=== PATIENT | female | born 1955 | race Caucasian/White ===

== ENCOUNTER → 2017-12-04 09:20 | Outpatient (CLI) | payer MEDICARE, MEDICAID, SELFPAY ==
[2017-12-04 12:29] LABS: Absolute Lymphocyte Count 1.86 X10^3/ul (0.83-4.51); Absolute Neutrophil Count 5.4 X10^3/uL (2.0-7.7); Basophil# 0.06 X10^3/uL; Basophil% 0.7 % (0-1); Differential Indicated SCAN CRITERIA MET; Eosinophil# 0.12 X10^3/uL; Eosinophils% 1.5 % (0-5); Hematocrit 38.7 % (37-47); Hemoglobin 11.6 g/dl (12.0-15.0); Lymphocyte # 1.86 X10^3/ul (4.0); Lymphocyte % 22.5 % (19-41); Mean Corpuscular Hgb 23.3 pg (27.0-32.0); Mean Corpuscular Volume 77.9 fL (81-99); Mean Platelet Vol. 10.6 fl (6.2-12.0); Monocyte# 0.82 X10^3/uL; Monocyte% 9.9 % (0-10); Neutrophil # 5.39 X10^3/uL (2.7-7.7); Neutrophil % 65.2 % (47-70); POSITIVE COUNT NO; POSITIVE DIFFERENTIAL NO; POSITIVE MORPHOLOGY YES; Platelet Count 382 K/mm3 (150-450); RBC Distribution Width CV 21.1 % (11.6-14.6); RBC Distribution Width SD 57.5 fl (35.1-43.9); Red Blood Count 4.97 M/mm3 (4.2-5.4); White Blood Count 8.3 K/mm3 (4.4-11.0)
[2017-12-04 12:40] LABS: ALB/GLOB Ratio 0.6 RATIO (0.9-2.4); AST(SGOT) 16 U/L (15-37); Alanine Aminotransfer ALT/SGPT 21 U/L (13-56); Albumin, Serum 2.9 g/dL (3.2-5.0); Alkaline Phosphatase 83 U/L (45-117); Anion Gap 8 (5-15); BUN 10 mg/dL (7-18); BUN/Creat Ratio 11.2 RATIO (10-20); Calcium,Total 8.3 mg/dL (8.5-10.1); Chloride 108 mmol/L (98-107); Creatinine, Serum 0.89 mg/dL (0.55-1.02); EST Glomerular Filtration Rate 68 mL/min (>60); Est Glom Filt Rate - Afr Amer 82 mL/min (>60); Globulin 4.6 g/dL (2.2-4.2); Glucose 99 mg/dL (74-106); Potassium 3.5 mmol/L (3.5-5.1); Protein, Total 7.5 g/dL (6.4-8.2); Sodium Level 141 mmol/L (136-145)
== END ==
PROVIDERS: Family Provider Family Medicine; PCP Family Medicine; Visit Provider Internal Medicine Rheumatology
DX: M06.89 Other specified rheumatoid arthritis, multiple sites (principal); M17.0 Bilateral primary osteoarthritis of knee; M16.0 Bilateral primary osteoarthritis of hip; K21.9 Gastro-esophageal reflux disease without esophagitis; M47.897 Other spondylosis, lumbosacral region; J45.909 Unspecified asthma, uncomplicated; F41.9 Anxiety disorder, unspecified; E89.0 Postprocedural hypothyroidism; Z79.899 Other long term (current) drug therapy
CPT/HCPCS: 36415; 80053; 85025

== ENCOUNTER → 2018-06-06 11:42 | Outpatient (CLI) | payer MEDICARE, MEDICAID, SELFPAY ==
[2018-06-06 14:20] LABS: Creatinine, Serum 1.02 mg/dL (0.55-1.02); EST Glomerular Filtration Rate 58 mL/min (>60); Est Glom Filt Rate - Afr Amer 70 mL/min (>60)
== END ==
PROVIDERS: Family Provider Family Medicine; PCP Family Medicine; Visit Provider Urology
DX: N39.0 Urinary tract infection, site not specified (principal); R31.29 Other microscopic hematuria
CPT/HCPCS: 36415; 82565

== ENCOUNTER → 2018-06-19 07:58 | Outpatient (CLI) | payer MEDICARE, MEDICAID, SELFPAY | PROVIDERS: Family Provider Family Medicine; PCP Family Medicine; Visit Provider Urology | DX: N39.0 Urinary tract infection, site not specified (principal); R31.9 Hematuria, unspecified | CPT/HCPCS: 74178; Q9967 ==

== ENCOUNTER 2024-07-28 15:55 | Emergency (ER) | payer MEDICARE, MEDICAID, SELFPAY ==
[2024-07-28 15:55] VITALS: BP 89/46; PULSE 110; RESP 22; TEMP 35.9; O2SAT 92
[2024-07-28 15:59] VITALS: BMI 29.2
--- NOTE | 2024-07-28 16:08 | EKG12_ITS ---
Test Reason : ABN LABS Blood Pressure : / mmHG Vent. Rate : 104 BPM Atrial Rate : 104 BPM P-R Int : 136 ms QRS Dur : 076 ms QT Int : 336 ms P-R-T Axes : 027 003 076 degrees QTc Int : 441 ms Sinus tachycardia with Premature atrial complexes Otherwise normal ECG Confirmed by DONNIE LOVE, CLAUDIA ([id number]), commercial production editor RUBIA AHN ([id number]) on 07/30/2024 6:32:33 AM Referred By: Confirmed By:CLAUDIA FIELDS MD
--- NOTE | 2024-07-28 16:09 | CT_ITS ---
We are attempting to reach an attending provider to discuss findings. An addendum with communication details will be sent when the communication is complete. STUDY: CT Abdomen And Pelvis W/ Contrast Injection 07/28/2024 6:23 PM REASON FOR EXAM: Female, 69 years old. Abdominal pain Nausea and vomiting, pain Individualized dose optimization techniques were used for this CT. COMPARISON: 06.19.19 TECHNIQUE: CT Abdomen And Pelvis W/ Contrast Injection IV 100mL Isovue-[id number] FINDINGS: There are atherosclerotic calcifications of visualized coronary arteries. The visualized portions of the heart are within normal limits. Normal liver. Normal gallbladder and extrahepatic biliary system. Normal spleen. Normal pancreas. Normal bilateral adrenal glands. Multicystic right kidney. Multicystic left kidney. Gastric perforation. There is an adjacent abscess measuring 29 x 30 mm. Normal small intestine. Stool throughout the colon. The appendix is visualized and appears normal. There are calcifications of the abdominal aorta. This is consistent for atherosclerotic disease. There is NO abdominal aortic aneurysm. Vascular workup can be obtained based on clinical correlation. There is an IVC filter in place. Recommend correlation with IVC filter placement the for follow-up. Subcentimeter mesenteric lymph nodes. Normal urinary bladder. There is absence of the uterus consistent with a prior hysterectomy. Normal abdominal wall. There are diffuse degenerative changes of the visualized lumbar spine. Multiple stable compression deformities in the lumbar spine. Total right hip arthroplasty. CT/Abdomen/Pelvis W IV Cont ONLY IMPRESSION: (NOT LISTED IN ORDER OF SIGNIFICANCE) Acute gastric perforation with regional abscess. Polycystic kidney disease. Other findings as above. Electronically Signed: Yazan Smith MD at 18:29 EDT ,
--- NOTE | 2024-07-28 16:09 | ED.VIS.GI ---
HPI HPI - GI History of Present Illness Chief Complaint: Abd Pain Narrative Narrative: 69-year-old female past medical history of rheumatoid arthritis presents with 2 months of intermittent nausea and vomiting. She states she has not had a bowel movement in a month. She relates history that she saw her primary care provider, and had an x-ray of her abdomen as well as a CT by her primary care provider and was told that there might be something wrong with her pancreas. Over the last few days, she now has more consistent nausea and vomiting. Whenever she tries to drink water, she vomits it back up. States she is somewhat lightheaded if she stands up too quickly. Past abdominal surgical history includes hysterectomy. She states she is post to see gastroenterology in the next coming weeks. She presents because the nausea and vomiting has gotten worse. She is having bilateral lower quadrant abdominal pain now as well. No blood in her emesis. PFSH PFSH Home Medications ?Medication ?Instructions ?Recorded ?Last Taken ?Type Advair 500/50 Mcg Diskus 1 puff inhalation TID 07/29/13 Unknown History Emblex 7.5 mg PO QHS 07/29/13 Unknown History albuterol sulfate 90 mcg/actuation 1 puff inhalation DAILY 07/29/13 Unknown History aerosol inhaler (Ventolin HFA) enoxaparin 100 mg/mL subcutaneous 100 mg subcut Q12@0600,1800 07/29/13 Unknown History syringe fentanyl 25 mcg/hr transdermal 25 mcg TRANSDERM. Q72H 07/29/13 Unknown History patch fluticasone 500 mcg-salmeterol 50 1 puff inhalation BID 07/29/13 Unknown History mcg/dose blistr powdr for inhalation (Advair Diskus) folic acid 1 mg tablet 1 mg PO DAILY@0800 07/29/13 Unknown History hydroxychloroquine 200 mg tablet 200 mg PO BIDCM 07/29/13 Unknown History methocarbamol 750 mg tablet 750 mg PO PRN PRN Anxiety 07/29/13 Unknown History (Robaxin-750) methotrexate sodium 2.5 mg tablet 10 mg PO Q7D 07/29/13 Unknown History montelukast 10 mg tablet 10 mg PO DAILY 07/29/13 Unknown History multivitamin with folic acid 400 1 tab PO DAILY 07/29/13 Unknown History mcg tablet (Thera) sertraline 100 mg tablet 150 mg PO DAILY 07/29/13 Unknown History tiotropium bromide 18 mcg capsule 1 puff inhalation DAILY 07/29/13 Unknown History with inhalation device (Spiriva with HandiHaler) warfarin 2.5 mg tablet (Jantoven) 2.5 mg PO QODAY 07/29/13 Unknown History warfarin 5 mg tablet (Jantoven) 5 mg PO QODAY 07/29/13 Unknown History zolpidem 10 mg tablet (Ambien) 10 mg PO QHS PRN 07/29/13 Unknown History diphenoxylate-atropine 2.5 1 tab PO DAILY 08/23/13 Unknown History mg-0.025 mg tablet oxycodone-acetaminophen 10 mg-325 1 tab PO Q6H PRN PRN Pain #20 tabs 09/10/13 Unknown Rx mg tablet (Percocet) gabapentin 800 mg tablet mg PO 07/28/24 Unknown History isosorbide mononitrate 30 mg 30 mg PO DAILY 07/28/24 Unknown History tablet,extended release 24 hr levothyroxine 175 mcg tablet mcg PO 07/28/24 Unknown History omeprazole 40 mg capsule,delayed 40 mg PO DAILY 07/28/24 Unknown History release oxycodone 10 mg tablet 10 mg PO 07/28/24 Unknown History potassium chloride 20 mEq 20 meq PO DAILY 07/28/24 Unknown History tablet,extended release(part/cryst) (Klor-Con M) prednisone 10 mg tablet mg PO 07/28/24 Unknown History Allergy/AdvReac Type Severity Reaction Status Date / Time Sulfa (Sulfonamide Allergy Hives AND Verified 07/28/24 16:16 Antibiotics) RESP DISTRESS nitrofurantoin AdvReac DECREASED Verified 07/28/24 16:16 (Nitrofurantoin) HEART RATE Social History Smoking Status: Current every day smoker tobacco type: cigarettes ROS ROS ED ROS Narrative Constitutional: No fever, no chills. HEENT: No sore throat. No neck pain. No loss of vision. No rhinorrhea. Cardiovascular: No chest pain. No palpitations. No pedal edema. Respiratory: No cough, no shortness of breath. Abdominal: Bilateral lower quadrant abdominal pain. 2 months of intermittent nausea and vomiting, now more consistent over the last few days with to many episodes to count over the last 24 hours, no hematemesis. States has not had a bowel movement in a month. Genitourinary: No dysuria. No hematuria. Musculoskeletal: No myalgias. No arthralgias. Neurologic: No headaches. No dizziness. Positive lightheadedness when standing up too quickly. Skin: No rash. No change in color. Psychiatric: No depression. No anxiety. EXAM Physical Exam Narrative Exam Narrative: Afebrile. Vital signs noted. Nontoxic-appearing. HEENT examination shows head to be normocephalic and atraumatic. Cardiovascular examination reveals a regular tachycardia. Mild tachypnea. Lungs clear to auscultation bilaterally. Abdomen soft with positive bowel sounds. Diffuse tenderness to palpation but especially in bilateral lower quadrants. Neurological examination is nonfocal and nonlateralizing. Const Vital Signs: 07/28/24 15:55 07/28/24 18:00 Temperature 96.6 F L Temperature Source Temporal Pulse Rate 110 H 91 Respiratory Rate 22 H 14 Blood Pressure 89/46 L 89/50 L Blood Pressure Mean 60 63 Pulse Ox 92 98 Oxygen Delivery Method Room Air Room Air MDM MDM MDM Narrative Medical decision making narrative: Differential diagnosis includes but not limited to partial small bowel obstruction versus diverticulitis versus ischemic bowel versus pancreatitis. Upon arrival, she is hypotensive and tachycardic. This may be secondary to dehydration versus intravascular volume depletion. Comprehensive workup was pursued. She was initially bolused normal saline and admitted her started ondansetron. I do feel CT imaging is indicated although she states she had CT imaging 2 months ago, she is having more consistent nausea and vomiting currently. I will also obtain a lactic acid to help rule out ischemic bowel, but this may be elevated to dehydration as well. I reviewed her laboratory work and she has elevated white count of 16.0, hemoglobin stable at 11.1, platelet count elevated at 759 which may be more of an acute phase reactant. Review of her CMP shows normal sodium of 136, potassium 3.6, chloride 102. BUN normal at 10 with creatinine normal at 0.75. Lactic acid is normal at 1.4. Lipase is elevated at 154. ALT is low at 9 with alk phos elevated at 120. I received a call from the radiologist regarding the CT of the abdomen and pelvis. It appears that she has a gastric perforation with abscess development. I discussed patient with Dr. Kwan with general surgery who states that the abscess is behind the body of the pancreas and possibly over the splenic artery, and that the patient will most likely require IR intervention or possible ICU admission after surgery. Patient was administered Pepcid as she had used a oral swab, and began having pain. She will be made strictly n.p.o. I discussed the patient with the transfer line who states that the surgeon Dr. Llamas requested an ED to ED transfer. I did discuss patient with Dr. Elisabeth Bates who has also accepted her in transfer. Although she has a soft blood pressure in the 90s systolic, she is no longer tachycardic and her lactic acid is normal. She will be started on an antifungal in the form of Diflucan, and started on Zosyn for intra-abdominal sepsis. Disposition is transferred. Patient is in guarded condition. History & Record Review Discussion w/independent historian: Patient and Family Lab Data Attestation: I reviewed the patient's lab results. Labs: Laboratory Results - last 24 hr 07/28/24 16:17 WBC 16.0 H RBC 4.99 Hgb 11.1 L Hct 39.0 MCV 78.2 L MCH 22.2 L MCHC 28.5 L RDW Std Deviation 60.2 H RDW Coeff of Demetrice 22.0 H Plt Count 759 H* MPV 8.6 Immature Gran % (Auto) 1.100 H Neut % (Auto) 78.1 H Lymph % (Auto) 11.4 L Clinch % (Auto) 7.7 Eos % (Auto) 1.3 Baso % (Auto) 0.4 Absolute Neuts (auto) 12.5 H Absolute Lymphs (auto) 1.83 Nucleated RBC % 0.1 Differential Comment SCANNED Diff Path Review May foll Platelet Estimate MKD INC Polychromasia 1+ Anisocytosis 2+ Sodium 136 Potassium 3.6 Chloride 102 Carbon Dioxide 26.0 Anion Gap 8 BUN 10 Creatinine 0.75 Estim Creat Clear Calc 69.28 Est GFR (MDRD) Af Amer 99 Est GFR (MDRD) Non-Af 82 BUN/Creatinine Ratio 13.4 Glucose 97 Lactic Acid 1.4 Calcium 8.7 Total Bilirubin 0.80 AST 17 ALT 9 L Alkaline Phosphatase 120 H Total Protein 7.4 Albumin 2.1 L Globulin 5.3 H Albumin/Globulin Ratio 0.4 L Lipase 154 H Radiography Diagnostic Testing: Clinical Impression(s) from Imaging Studies Abdomen/Pelvis CT 07/28/24 16:09 IMPRESSION: (NOT LISTED IN ORDER OF SIGNIFICANCE) Acute gastric perforation with regional abscess. Polycystic kidney disease. Other findings as above. Electronically Signed: Yazan Smith MD at 18:29 EDT , ADDENDUM: 07/28/24 1842 IMPRESSION: (NOT LISTED IN ORDER OF SIGNIFICANCE) Acute gastric perforation with regional abscess. Polycystic kidney disease. Other findings as above. N.B. : The above Results were Read Back by Yazan Smith MD to Toribio Salvador MD, and understanding confirmed on 07/28/2024 18:35:12 (ET). Electronically Signed: Yazan Smith MD at 18:29 EDT , Management Discussion w/another healthcare provider: Electric Bath Attendant (Dr. Kwan, general surgery. [facility] Transfer line, [facility] ED physician) Critical Care Time Critical Care Time: Yes Critical care time (excluding procedures): 30-74 minutes (32 minutes), Discussing w/Patient &/or Family/Quality Assurance Manager, Discussing w/Consultants, Arranging Admission or Transfer and Performing Direct Patient Care at Bedside Discharge Plan Triage Chief Complaint: Abd Pain ED Provider: Toribio Salvador Dx/Rx/DC Orders Clinical Impression: Gastric perforation, Intra-abdominal abscess, Hypotension, Nausea and vomiting Prescriptions: No Action diphenoxylate-atropine 1 TABLET tablet 1 tab PO DAILY Patient Comments: DIARRHEA Advair 500/50 Mcg Diskus 1 puff inhalation TID Patient Comments: LUNGS/COPD fluticasone propion-salmeterol [Advair Diskus] 1 PUFF inhaler 1 puff inhalation BID Patient Comments: LUNGS/COPD folic acid 1 MG tablet 1 mg PO DAILY@0800 Patient Comments: SUPPLEMENT zolpidem [Ambien] 10 MG tablet 10 mg PO QHS PRN Patient Comments: SLEEP sertraline 100 MG tablet 150 mg PO DAILY Patient Comments: DEPRESSION warfarin [Jantoven] 2.5 MG tablet 2.5 mg PO QODAY Patient Comments: BLOOD THINNER methocarbamol [Robaxin-750] 750 MG tablet 750 mg PO PRN PRN (Reason: Anxiety) Patient Comments: musculoskeletal pain methotrexate sodium 2.5 MG tablet 10 mg PO Q7D warfarin [Jantoven] 5 MG tablet 5 mg PO QODAY Patient Comments: BLOOD THINNER montelukast 10 MG tablet 10 mg PO DAILY Patient Comments: LUNGS/COPD hydroxychloroquine 200 MG tablet 200 mg PO BIDCM Patient Comments: rheumatoid arthritis fentanyl 25 MCG patch 25 mcg TRANSDERM. Q72H Patient Comments: PAIN albuterol sulfate [Ventolin HFA] 1 INHALER inhaler 1 puff inhalation DAILY Patient Comments: LUNGS/COPD enoxaparin 100 MG syringe 100 mg subcut Q12@0600,1800 Patient Comments: BLOOD THINNER tiotropium bromide [Spiriva with HandiHaler] 1 PUFF inhaler 1 puff inhalation DAILY Patient Comments: LUNGS/COPD multivitamin with folic acid [Thera] 1 TABLET tablet 1 tab PO DAILY Patient Comments: VITAMIN Emblex 7.5 mg PO QHS oxycodone-acetaminophen [Percocet] 1 EACH tablet 1 tab PO Q6H PRN PRN (Reason: Pain) Qty: 20 0RF Patient Comments: pain levothyroxine 175 mcg tablet PO prednisone 10 mg tablet PO isosorbide mononitrate 30 mg tablet extended release 24 hr 30 mg PO DAILY omeprazole 40 mg capsule,delayed release(DR/EC) 40 mg PO DAILY potassium chloride [Klor-Con M20] 20 mEq tablet,ER particles/crystals 20 meq PO DAILY gabapentin 800 mg tablet PO oxycodone 10 mg tablet 10 mg PO Primary Care Provider: Galindo Sun Referrals: Galindo Sun MD [Primary Care Provider] - Print Language: [place] Disposition Disposition: Acute Care Hospital Discharge Location: [facility]
[2024-07-28] MEDS: Ondansetron 4 MG/2 ML Vial IV (16:24)
[2024-07-28] MEDS: 0.9% Normal Saline (1000mL) 1,000 ML 999 ML IV ×2 (16:24→18:57)
[2024-07-28 16:43] LABS: Absolute Lymphocyte Count 1.83 X10^3/uL (0.83-4.51); Absolute Neutrophil Count 12.5 X10^3/uL (2.0-7.7); Basophil# 0.07 X10^3/uL; Basophil% 0.4 % (0-1); Eosinophil# 0.21 X10^3/uL; Eosinophils% 1.3 % (0-5); Hemoglobin 11.1 g/dL (12.0-15.0); Lymphocyte # 1.83 X10^3/ul (0.83-4.51); Lymphocyte % 11.4 % (19-41); Mean Corp Hgb Conc 28.5 g/dL (32-36); Mean Corpuscular Hgb 22.2 pg (27.0-32.0); Mean Corpuscular Volume 78.2 fL (81-99); Mean Platelet Vol. 8.6 fl (6.2-12.0); Monocyte# 1.23 X10^3/uL; Monocyte% 7.7 % (0-10); NRBC Flagged by Analyzer 0.1 % (0-5); Neutrophil # 12.51 X10^3/uL (2.7-7.7); Neutrophil % 78.1 % (47-70); POSITIVE COUNT YES; POSITIVE MORPHOLOGY YES; RBC Distribution Width SD 60.2 fl (35.1-43.9); Red Blood Count 4.99 M/mm3 (4.2-5.4)
[2024-07-28 16:51] LABS: Differential Indicated SCAN CRITERIA MET; Platelet Count 759 K/mm3 (150-450)
[2024-07-28 16:59] LABS: Lactic Acid 1.4 mmol/L (0.4-1.9)
[2024-07-28 17:01] LABS: ALB/GLOB Ratio 0.4 RATIO (0.9-2.4); AST(SGOT) 17 U/L (15-37); Alanine Aminotransfer ALT/SGPT 9 U/L (13-56); Albumin, Serum 2.1 g/dL (3.2-5.0); Alkaline Phosphatase 120 U/L (45-117); Anion Gap 8 (5-15); BUN 10 mg/dL (7-18); BUN/Creat Ratio 13.4 RATIO (10-20); Calcium,Total 8.7 mg/dL (8.5-10.1); Chloride 102 mmol/L (98-107); Creatinine, Serum 0.75 mg/dL (0.55-1.02); EST Glomerular Filtration Rate 82 mL/min (>60); Est Glom Filt Rate - Afr Amer 99 mL/min (>60); Estimated Creatinine Clearance 69.28 ml/min; Globulin 5.3 g/dL (2.2-4.2); Glucose 97 mg/dL (74-106); Lipase 154 U/L (13-75); Potassium 3.6 mmol/L (3.5-5.1); Protein, Total 7.4 g/dL (6.4-8.2); Sodium Level 136 mmol/L (136-145)
[2024-07-28 17:39] LABS: Anisocytosis 2+; Differential Comment SCANNED
[2024-07-28 17:40] LABS: Polychromasia 1+
[2024-07-28 17:43] LABS: Platelet Estimate MKD INC (ADEQ)
[2024-07-28 18:00] VITALS: BP 89/50; PULSE 91; RESP 14; O2SAT 98
[2024-07-28] MEDS: Famotidine 200 MG/20 ML MDV 20 MG in 0.9% Normal Saline (Pres. free 8 ML 300 MG IV (18:30)
[2024-07-28] MEDS: Piperacil/Tazobactam 4.5 GM in 0.9% Normal Saline (100mL MB+) 100 ML IV (19:15)
[2024-07-28 20:00] VITALS: BP 97/58; PULSE 93; RESP 17
[2024-07-28] MEDS: Fluconazole IVPB 400 MG/200 ML BAG 100 MG IV (20:19)
[2024-07-28 20:54] LABS: Red Blood Cells-Urine 0 SEEN /hpf (0-5)
[2024-07-28 21:04] LABS: Color, Urine Yellow (Yellow); Glucose, Dipstick Normal (Normal); Ketone-Dipstick 5 mg/dl (Negative); Leukocyte Esterase-Dipstick 100 /ul (Negative); Nitrite-Dipstick Positive (Negative); Occult Blood-Urine 10 /ul (Negative); Protein-Dipstick 30 mg/dl (Negative); Urine Bilirubin Dipstick Negative (Negative); Urine Clarity Sl. Cloudy (Clear); Urine Urobilinogen 1 mg/dl (Normal); Urine pH 6.5 (5.0 - 8.0)
[2024-07-28 21:21] VITALS: BP 102/56; PULSE 75; RESP 20; TEMP 36; O2SAT 98
[2024-07-28 21:22] LABS: Bacteria 4+ /hpf (None Seen); Mucous, Urine 1+ /hpf (<or=2+); Squamous Epithelial Cells - UA 5-10 SEEN /hpf (5-10); White Blood Cells 50-100 SEEN /hpf (0-5)
[2024-07-29 13:00] LABS: Pathologist Review Reviewed
== END 2024-07-28 21:26 | disposition short-term general hospital (02) ==
PROVIDERS: Emergency Provider Emergency Medicine; PCP Family Medicine; Visit Provider Emergency Medicine
DX: K65.1 Peritoneal abscess (principal); K63.1 Perforation of intestine (nontraumatic); F17.210 Nicotine dependence, cigarettes, uncomplicated; I95.9 Hypotension, unspecified; Z79.890 Hormone replacement therapy; Z79.899 Other long term (current) drug therapy; R11.2 Nausea with vomiting, unspecified
CPT/HCPCS: 74177; 80053; 81001; 83605; 83690; 85025; 93005; 96361; 96365; 96366; 96367; 96375; 99284; J7030; Q9967; A4216; J2405; J3490

== ENCOUNTER → 2025-03-04 | Outpatient (CLI) | payer MEDICARE, MEDICAID, SELFPAY ==
[2025-03-04 12:26] LABS: Amylase 41 U/L (28-100); Lipase 35 U/L (13-75)
[2025-03-06 17:08] LABS: Gastrin, Serum 170 pg/mL (0-115)
== END | disposition home or self-care (01) ==
LOC: LAB 10:44
PROVIDERS: PCP Family Medicine
DX: R11.0 Nausea (principal); K86.89 Other specified diseases of pancreas
CPT/HCPCS: 36415; 82150; 82941; 83690

== ENCOUNTER → 2025-03-20 | Outpatient (CLI) | payer MEDICARE, MEDICAID, SELFPAY ==
--- NOTE | 2025-03-20 12:52 | NM_ITS ---
PROCEDURE: GASTRIC EMPTYING STUDY 03/20/2025 REASON FOR EXAM: FREQUENT NAUSEA COMPARISON: None TECHNIQUE: The patient ingested a standard meal of cooked egg whites mixed with , oatmeal, toasted white bread, jelly, and water. There was no vomiting postprandially. Anterior and posterior planar images of the upper abdomen were obtained for 1 minute immediately following the meal at 1h, 2h and 4h if more than 10% of the activity persisted within the stomach. Regions of interest were drawn, and a geometric mean was used to calculate a [id number]. RADIOPHARMACEUTICAL: Sulfur colloid DOSE 1.2mCi FINDINGS: Percent activity remaining in stomach: 1 hour 62% % (normal 37-90%) NM/Gastric Emptying Study IMPRESSION: Normal gastric emptying examination. Reading Location: [place] [id number]
== END | disposition home or self-care (01) ==
LOC: NM 12:50
PROVIDERS: PCP Family Medicine
DX: K86.89 Other specified diseases of pancreas (principal); R11.0 Nausea
CPT/HCPCS: 78264; A9541

== ENCOUNTER → 2025-04-04 | Outpatient (CLI) | payer MEDICARE, MEDICAID, SELFPAY ==
--- NOTE | 2025-04-04 08:50 | ECHOCS_ITS ---
Reason For Study Reason For Study: FATIGUE Procedure This was a 2D Doppler, Color Flow transthoracic echocardiogram. The study was technically difficult. Due to smoking history and body habitus. Contrast injection was performed. Exam performed in department. Left Ventricle Normal LV size. The estimated ejection fraction is 65 %. No evidence for diastolic dysfunction. No regional wall motion abnormalities noted. Right Ventricle Normal RV size. Normal systolic function. Atria The left and right atria are normal. No doppler evidence for ASD. Mitral Valve There is no mitral valve stenosis. No mitral valve insufficiency. Tricuspid Valve There is no tricuspid stenosis. Unable to estimate RV systolic pressure due to inadequate jet, pulmonary artery pressure probably normal. Aortic Valve Aortic sclerosis, no stenosis. No aortic valve insufficiency. Pulmonic Valve There is no pulmonic valvular stenosis. No pulmonic valve insufficiency. Great Vessels Normal sized aortic root. Pericardium/Pleural No pericardial effusion. Medication 22 gauge I.V. with prn adaptor inserted into right arm. Diluted definity 3.0ml given slow IV push to enhance endocardial definition. MMode/2D Measurements & Calculations LVIDd: 4.5 cm IVSd: 1.3 cm Ao root diam: 3.3 cm LVIDs: 2.9 cm LVPWd: 1.2 cm FS: 36.7 % LAV(MOD-bp): 53.6 ml LVAd ap4: 30.2 cm2 LVAd ap2: 26.9 cm2 LAV(MOD-bp) Indexed: 27.6 ml/m2 LVLd ap4: 7.7 cm LVLd ap2: 7.9 cm LAV(MOD-sp2): 56.1 ml EDV(MOD-sp4): 100.2 ml EDV(MOD-sp2): 76.0 ml LAV(MOD-sp4): 51.2 ml EDV(sp4-el): 100.7 ml EDV(sp2-el): 77.4 ml LVAs ap4: 14.7 cm2 LVAs ap2: 15.6 cm2 LVLs ap4: 6.8 cm LVLs ap2: 7.2 cm ESV(MOD-sp4): 27.1 ml ESV(MOD-sp2): 28.4 ml ESV(sp4-el): 27.0 ml ESV(sp2-el): 28.8 ml EF(MOD-sp4): 73.0 % EF(MOD-sp2): 62.5 % EF(sp4-el): 73.1 % SV(MOD-sp4): 73.1 ml SV(MOD-sp2): 47.5 ml SV(sp4-el): 73.7 ml SI(MOD-sp4): 37.6 ml/m2 SI(MOD-sp2): 24.4 ml/m2 LA A4 area: 18.6 cm2 LA dimension(2D): 4.6 cm RA A4 area: 17.3 cm2 TAPSE: 2.5 cm Time Measurements MV dec time: 0.17 sec Doppler Measurements & Calculations MV E max andreas: 62.6 cm/sec Lat Peak E' Andreas: 6.3 cm/sec Med Peak E' Andreas: 8.5 cm/sec MV A max andreas: 74.6 cm/sec E/E' lat: 9.9 E/E' med: 7.4 MV E/A: 0.84 MV V2 max: 75.0 cm/sec MV P1/2t max andreas: 63.6 cm/sec Ao V2 max: 131.7 cm/sec MV max P.2 mmHg MV P1/2t: 62.6 msec Ao max P.9 mmHg MV V2 mean: 46.1 cm/sec MV dec slope: 297.7 cm/sec2 Ao V2 mean: 79.3 cm/sec MV mean P.95 mmHg MVA(P1/2t): 3.5 cm2 Ao mean P.9 mmHg MV V2 VTI: 14.7 cm Ao V2 VTI: 18.3 cm AV (velocity ratio): 0.78 LV V1 max: 98.6 cm/sec PA V2 max: 80.4 cm/sec TR max andreas: 208.5 cm/sec LV V1 max P.9 mmHg PA V2 mean: 53.1 cm/sec TR max P.4 mmHg LV V1 mean P.6 mmHg PA V2 VTI: 12.9 cm LV V1 mean: 59.1 cm/sec LV V1 VTI: 14.3 cm ECHO/Echo Complete W/ Contrast Interpretation Summary The estimated ejection fraction is 65 %. No evidence for diastolic dysfunction. Ordering Physician: Galindo Sun Referring Physician: Galindo Sun Performed By: Estefania Griffiths, JENNIFER, RVT
== END | disposition home or self-care (01) ==
LOC: CVS 08:46
PROVIDERS: PCP Family Medicine; Referring Provider Family Medicine; Visit Provider Family Medicine
DX: R06.09 Other forms of dyspnea (principal); R53.83 Other fatigue
CPT/HCPCS: 93306; Q9957; A4216; C8929

== ENCOUNTER 2025-05-13 10:24 | Day surgery (SDC) | payer MEDICARE, MEDICAID, SELFPAY ==
--- NOTE | 2025-05-12 13:25 | PAT.ANESEVAL ---
Pre-Assessment Diagnosis/Proposed Procedure Planned Operative Procedure(s): EGD Anesthesia History Anesthesia History - sequins stringer: Anesthesia History - sequins stringer Hx Hospitalization No 05/12/25 08:53 Any Problems With Anesthesia No 05/12/25 08:53 Cholinesterase deficiency No 05/12/25 08:53 You/Your Family Experience No 05/12/25 08:53 fever (hyperthermia) with Relationship Recent Exposure to Contagious No 09/09/13 10:22 Disease Does patient have nerve No 05/12/25 08:53 stimulator Patient instructed to have device shut off --Does patient have Pacemaker or ICD? When Was Last Pacemaker Check QUESTION #4 FULL TEXT: You/Your Family Experience fever (hyperthermia) with Anesthesia Last Oral Intake Last Oral intake: Last Oral Intake NPO since Meds taken in AM with sips of water? Meds patient instructed to take am of surgery PONV PONV - sequins stringer: PONV - sequins stringer Female Yes 05/12/25 08:53 HX of Motion Sickness No 05/12/25 08:53 HX of N/V After Surgery No 05/12/25 08:53 Non-Smoker No 05/12/25 08:53 Duration of Surgery greater No 05/12/25 08:53 than 60 minutes Number of Risk Factors 1 05/12/25 08:53 PONV Score Low Risk 05/12/25 08:53 Height & Weight Height & Weight: Anesthesia: Height & Weight Height 5 ft 5 in 07/28/24 15:55 Respiratory Assessment Respiratory Assessment - sequins stringer: Respiratory Tract Infection Hx - sequins stringer Hx Respiratory Tract Infection No 05/12/25 08:53 STOP Sleep Apnea STOP Sleep Apnea - sequins stringer: STOP Sleep Apnea - sequins stringer Hx Hypertension No 05/12/25 08:53 Hx Sleep Apnea No 05/12/25 08:53 CPAP No 09/09/13 12:36 BIPAP No 09/09/13 10:29 Do you snore loudly (louder Yes 05/12/25 08:53 than talking or can be heard Do you often feel tired/ Yes 05/12/25 08:53 fatigued/ sleepy during daytime? Has anyone observed you stop Yes 05/12/25 08:53 breathing during sleep? STOP Results Positive 05/12/25 08:53 QUESTION #5 FULL TEXT : Do you snore loudly (louder than talking or can be heard through closed doors)? 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 Specify any problems Hx of Preganancy in last 3 No 05/12/25 08:53 Months Nurse Filling Out Transfusion [facility] 05/12/25 08:53 & Questions: Date: 05/12/25 05/12/25 08:53 Time: 09:06 05/12/25 08:53 Patient unable to answer at this time (ie. confused, unrespo /Reproduction History /Reproductive History - sequins stringer: /Reproductive Hx- sequins stringer Hx Now No 05/12/25 08:53 Gestational Age (in weeks): EDC: Hx Hx Para Hx Section SAB No 05/12/25 08:53 [facility] Medical History (Updated 05/12/25 @ 10:40 by Luly Fierro) History of stress test Wears hearing aid Wears dentures Wears glasses Thyroid disease Walker as ambulation aid Ambulates with cane Rheumatoid arthritis Low iron DVT (deep venous thrombosis) Restless legs Gastric reflux Smoker History of echocardiogram Cardiology follow-up encounter Hypertension Rheumatoid arthritis in remission Pancreatic pseudocyst Severe protein-calorie malnutrition Perforated gastric ulcer Chronic kidney disease, stage 3 COPD (chronic obstructive pulmonary disease) Anxiety Epistaxis Chronic anticoagulation Altered mental status History of DVT (deep vein thrombosis) Asthma Fibromyalgia Anemia Osteoporosis GERD without esophagitis Insomnia Dysphagia Osteoarthritis Home Medications ?Medication ?Instructions ?Recorded ?Last Taken ?Type albuterol sulfate 90 mcg/actuation 1 puff inhalation DAILY 07/29/13 Unknown History aerosol inhaler (Ventolin HFA) fluticasone 500 mcg-salmeterol 50 1 puff inhalation BID 07/29/13 Unknown History mcg/dose blistr powdr for inhalation (Advair Diskus) folic acid 1 mg tablet 1 mg PO DAILY@0800 07/29/13 Unknown History montelukast 10 mg tablet 10 mg PO DAILY 07/29/13 Unknown History tiotropium bromide 18 mcg capsule 1 puff inhalation DAILY 07/29/13 Unknown History with inhalation device (Spiriva with HandiHaler) warfarin 2.5 mg tablet (Jantoven) 2.5 mg PO QODAY 07/29/13 05/10/25 History warfarin 5 mg tablet (Jantoven) 5 mg PO QODAY 07/29/13 05/09/25 History gabapentin 800 mg tablet 800 mg PO TID 07/28/24 Unknown History isosorbide mononitrate 30 mg 30 mg PO DAILY 07/28/24 Unknown History tablet,extended release 24 hr levothyroxine 175 mcg tablet 175 mcg PO DAILY 07/28/24 Unknown History oxycodone 10 mg tablet 10 mg PO Q4H PRN pain 07/28/24 Unknown History potassium chloride 20 mEq 20 meq PO DAILY 07/28/24 Unknown History tablet,extended release(part/cryst) (Klor-Con M) alprazolam 0.25 mg tablet 0.25 mg PO TID PRN anxiety 08/08/24 Unknown History melatonin 5 mg tablet 5 mg PO HS PRN sleep 08/08/24 Unknown History methocarbamol 750 mg tablet 500 mg PO Q6H PRN Anxiety 08/08/24 Unknown History (Robaxin-750) omeprazole 40 mg capsule,delayed 40 mg PO QDAY 08/08/24 Unknown History release ondansetron 4 mg disintegrating 4 mg PO Q6H 08/08/24 Unknown History tablet sucralfate 100 mg/mL oral 10 ml PO QACHS 08/08/24 Unknown History suspension (Carafate) metoclopramide HCl 5 mg tablet 5 mg PO QAC #42 tabs 03/04/25 Unknown Rx fluconazole 200 mg tablet 200 mg PO DAILY 05/12/25 Unknown History (Diflucan) Allergy/AdvReac Type Severity Reaction Status Date / Time Sulfa (Sulfonamide Allergy Hives AND Verified 05/12/25 08:43 Antibiotics) RESP DISTRESS amoxicillin (From Augmentin) AdvReac Other Verified 05/12/25 08:43 clavulanic acid (From AdvReac Other Verified 05/12/25 08:43 Augmentin) codeine AdvReac Itching Verified 05/12/25 08:43 nitrofurantoin AdvReac DECREASED Verified 05/12/25 08:43 (Nitrofurantoin) HEART RATE Family History Sister Breast cancer Diabetes Brother Liver cancer Diabetes Father Diabetes CVA (cerebral vascular accident) Surgical History (Updated 05/12/25 @ 10:40 by Luly Fierro) History of cardiac catheterization History of tonsillectomy History of thyroidectomy History of right hip replacement History of total right knee replacement History of hysterectomy History of carpal tunnel surgery of right wrist Social History Smoking Status: Current every day smoker tobacco type: cigarettes alcohol intake: never Audit: Pertinent Findings Pertinent Findings EKG Perinent findings: EKG done on 07/28/2024: Sinus tachycardia with PACs otherwise normal EKG. Stress test pertinent findings: Myocardial SPECT perfusion study done on 08/10/2022: Stress myocardial perfusion imaging study is positive for inferior lateral wall ischemia. 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 Hyperdynamic left ventricle systolic function with EF of 73%. Echo (EF%) pertinent findings: Echocardiogram done on 04/04/2025: LVEF is estimated around 65%. No evidence for diastolic dysfunction. Aortic valve with sclerosis however no evidence of stenosis and no evidence of aortic insufficiency. Heart catheterization pertinent findings: Cardiac cath done on 09/06/2022: Normal coronary arteries. Normal LVEDP. Recommendation Anesthesia Recommendation Anesthesia recommendation: OPTIMIZED for anesthesia
[2025-05-13] VITALS (9 sets, daily range): BP systolic 106–134; BP diastolic 60–85; PULSE 83–93; RESP 18–24; TEMP 36.2–36.6; O2SAT 88–96; BMI 33.7
[2025-05-13 10:38] LABS: INR Fingerstick 1.9
[2025-05-13 10:49] LABS: Prothrombin Time (Protime)PT. 20.2 SECONDS (11.7-14.9)
--- NOTE | 2025-05-13 11:30 | EGD_PTH ---
PATIENT: LOR SEQUEIAR LOC: EN U#:[id number] AGE/SX: 70/F ROOM: RE05/13/[address]: Dr. Noe Wrgiht DO : 1955 BED: DIS: 05/13/2025 SPEC #: [id number] RECD: 05/13/25 13:46 STATUS: JENNIFER RELaney #: [id number] CARMELA: 05/13/25 11:[address]: Noe Wright DEPT: SURGICAL PATHOLOGY RECD BY: Kin Ervin ENTERED: 05/13/25 14:59 SP TYPE: EGD BIOPSY DAISHA DR: Dr. Galindo Sun MD Tissues: A - Duodenum, NOS B - Gastric mucous membrane Procedures: Surgery Specimen Level IV HEADER OPERATION: EGD with biopsy PRE-OP DIAGNOSIS: Early satiety, nausea TISSUE SUBMITTED: A- Duodenum biopsy, B- Gastric body biopsy MICROSCOPIC DIAGNOSIS A. Small intestine, duodenum, biopsy: * Small bowel mucosa with no pathologic change * Detached pieces of gastric mucosa with mild chronic inflammation and reactive changes B. Gastric body, biopsy: * Oxyntic mucosa with mild chronic inflammation * No morphologic evidence of Helicobacter pylori organisms MICROSCOPIC DESCRIPTION Slides are reviewed. GROSS DESCRIPTION A. Received in fixative is one container labeled with the patient's name and designated Duodenum biopsy. The specimen consists of multiple irregular fragments of light ellison soft tissue that in aggregate measure 0.2 to 0.5 cm. The specimen is totally submitted in one cassette. B. Received in fixative is one container labeled with the patient's name and designated Gastric body biopsy. The specimen consists of one irregular fragment of light ellison soft tissue that measures 0.5 cm. The specimen is totally submitted in one cassette. JOSIAH/ 05/13/2025 CPT:51726c4
--- NOTE | 2025-05-13 11:54 | PRE.ANES_ITS ---
ASA Classification* ASA Classification ASA Classification: 4 Assessment & Plan Anesthesia* Anesthesia Assessment Anesthesia Assessment: Discussed sedation and/or anesthesia options, risks, benefits, and alternatives with patient/parents/legal guardian/POA. Questions invited. The patient/parents/legal guardian/POA seems to understand and agrees to proceed with anesthesia plan. Reviewed the physical assessment, medical history, allergy history and patient home medications list prior to surgery/procedure/anesthetic and documented any changes. Performed airway and anesthesia risk assessments. Anesthesia Type Anesthesia Type: MAC (She will have to use a procedural mask for the endoscopy.) History Source History Obtained from:: Patient and Chart Anesthesia Focused Assessment* Temperature: 98 F Pulse Rate: 93 Blood Pressure: 134/85 Respiratory Rate: 19 Pulse Ox: 88 Oxygen Delivery Method: Room Air Airway Assessment Mouth opens: 2 cm Mallampati Score: IV Teeth Condition: Dentures (Patient has full upper and lower dentures. These will come out.) Neck Range of motion (ROM): Full ROM Labs Anesthesia Preop lab: CBC WBC 16.0 K/mm3 (4.4-11.0) H 07/28/24 16:17 4 RBC 4.99 M/mm3 (4.2-5.4) 07/28/24 16:17 07/28/24 Hgb 11.1 g/dL (12.0-15.0) L 07/28/24 16:17 4 Hct 39.0 % (37-47) 07/28/24 16:17 07/28/24 Plt Count 759 K/mm3 (150-450) H* 07/28/24 16:17 07/28/24 CHEMISTRY Potassium 3.6 mmol/L (3.5-5.1) 07/28/24 16:17 07/28/24 Sodium 136 mmol/L (136-145) 07/28/24 16:17 07/28/24 BUN 10 mg/dL (7-18) 07/28/24 16:17 07/28/24 Creatinine 0.75 mg/dL (0.55-1.02) 07/28/24 16:17 07/28/24 Glucose 97 mg/dL (74-106) 07/28/24 16:17 07/28/24 COAG PT 20.2 SECONDS (11.7-14.9) H 05/13/25 10:35 04/29 03/23 Pre-Assessment Diagnosis/Proposed Procedure Planned Operative Procedure(s): EGD Anesthesia History Anesthesia History - extension division director: Anesthesia History - extension division director Hx Hospitalization No 05/12/25 08:53 Any Problems With Anesthesia No 05/12/25 08:53 Cholinesterase deficiency No 05/12/25 08:53 You/Your Family Experience No 05/12/25 08:53 fever (hyperthermia) with Relationship Recent Exposure to Contagious No 05/13/25 11:08 Disease Does patient have nerve No 05/12/25 08:53 stimulator Patient instructed to have device shut off --Does patient have Pacemaker No 05/13/25 11:08 or ICD? When Was Last Pacemaker Check QUESTION #4 FULL TEXT: You/Your Family Experience fever (hyperthermia) with Anesthesia Last Oral Intake Last Oral intake: Last Oral Intake NPO since 00:00 05/13/25 11:08 Meds taken in AM with sips of water? Meds patient instructed to take am of surgery Any additional information?: Yes Meds taken in AM with sips of water?: Yes Meds patient instructed to take am of surgery: Oxycodone and gabapentin. PONV PONV - extension division director: PONV - extension division director Female Yes 05/12/25 08:53 HX of Motion Sickness No 05/12/25 08:53 HX of N/V After Surgery No 05/12/25 08:53 Non-Smoker No 05/12/25 08:53 Duration of Surgery greater No 05/12/25 08:53 than 60 minutes Number of Risk Factors 1 05/12/25 08:53 PONV Score Low Risk 05/12/25 08:53 Height & Weight Height & Weight: Anesthesia: Height & Weight Height 5 ft 4 in 05/13/25 11:08 Weight: 89 kg 05/13/25 11:08 Body Mass Index (BMI) 33.7 05/13/25 11:08 Respiratory Assessment Respiratory Assessment - extension division director: Respiratory Tract Infection Hx - extension division director Hx Respiratory Tract Infection No 05/12/25 08:53 STOP Sleep Apnea STOP Sleep Apnea - extension division director: STOP Sleep Apnea - extension division director Hx Hypertension No 05/12/25 08:53 Hx Sleep Apnea No 05/12/25 08:53 CPAP No 09/09/13 12:36 BIPAP No 09/09/13 10:29 Do you snore loudly (louder Yes 05/12/25 08:53 than talking or can be heard Do you often feel tired/ Yes 05/12/25 08:53 fatigued/ sleepy during daytime? Has anyone observed you stop Yes 05/12/25 08:53 breathing during sleep? STOP Results Positive 05/12/25 08:53 QUESTION #5 FULL TEXT : Do you snore loudly (louder than talking or can be heard through closed doors)? 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 Specify any problems Hx of Preganancy in last 3 No 05/12/25 08:53 Months Nurse Filling Out Transfusion [facility] 05/12/25 08:53 & Questions: Date: 05/12/25 05/12/25 08:53 Time: 09:06 05/12/25 08:53 Patient unable to answer at this time (ie. confused, unrespo /Reproduction History /Reproductive History - extension division director: /Reproductive Hx- extension division director Hx Now No 05/12/25 08:53 Gestational Age (in weeks): EDC: Hx Hx Para Hx Section SAB No 05/12/25 08:53 Active Medications Active Medications: Current Medications Generic Name Dose Route Start Last Admin Trade Name Freq PRN Reason Stop Dose Admin Lactated Ringer's 1,000 mls @ 15 mls/hr 05/13/25 10:45 IV .Q48H YARITZA PFSH Medical History History of stress test Wears hearing aid Wears dentures Wears glasses Thyroid disease Walker as ambulation aid Ambulates with cane Rheumatoid arthritis Low iron DVT (deep venous thrombosis) Restless legs Gastric reflux Smoker History of echocardiogram Cardiology follow-up encounter Hypertension Rheumatoid arthritis in remission Pancreatic pseudocyst Severe protein-calorie malnutrition Perforated gastric ulcer Chronic kidney disease, stage 3 COPD (chronic obstructive pulmonary disease) Anxiety Epistaxis Chronic anticoagulation Altered mental status History of DVT (deep vein thrombosis) Asthma Fibromyalgia Anemia Osteoporosis GERD without esophagitis Insomnia Dysphagia Osteoarthritis Home Medications ?Medication ?Instructions ?Recorded ?Last Taken ?Type albuterol sulfate 90 mcg/actuation 1 puff inhalation D AILY 07/29/13 Unknown History aerosol inhaler (Ventolin HFA) fluticasone 500 mcg-salmeterol 50 1 puff inhalation .q d 07/29/13 Unknown History mcg/dose blistr powdr for inhalation (Advair Diskus) folic acid 1 mg tablet 1 mg PO DAILY@0800 07/29/13 Unknown History montelukast 10 mg tablet 10 mg PO DAILY 07/29/13 Unkn own History tiotropium bromide 18 mcg capsule 1 puff inhalation DA RAFIA 07/29/13 Unknown History with inhalation device (Spiriva with HandiHaler) warfarin 2.5 mg tablet (Jantoven) 2.5 mg PO QODAY 07/02 005/10/25 History warfarin 5 mg tablet (Jantoven) 5 mg PO QODAY 07/29/13 05/09/25 History gabapentin 800 mg tablet 800 mg PO TID 07/28/24 Unkno wn History isosorbide mononitrate 30 mg 30 mg PO DAILY 07/28/24 U nknown History tablet,extended release 24 hr levothyroxine 175 mcg tablet 175 mcg PO DAILY 07/28/24 Unknown History oxycodone 10 mg tablet 10 mg PO Q4H PRN pain Unknown History potassium chloride 20 mEq 20 meq PO DAILY 07/28/24 Unk nown History tablet,extended release(part/cryst) (Klor-Con M) alprazolam 0.25 mg tablet 0.25 mg PO TID PRN anxiety 1 0/10/24 Unknown History melatonin 5 mg tablet 5 mg PO HS PRN sleep 4 Unknown History methocarbamol 750 mg tablet 500 mg PO Q6H PRN Anxiety 08/08/24 Unknown History (Robaxin-750) omeprazole 40 mg capsule,delayed 40 mg PO QDAY 4 Unknown History release ondansetron 4 mg disintegrating 4 mg PO Q6H 08/08/24 U nknown History tablet sucralfate 100 mg/mL oral 10 ml PO QACHS 08/08/24 Unkn own History suspension (Carafate) metoclopramide HCl 5 mg tablet 5 mg PO QAC #42 tabs Unknown Rx fluconazole 200 mg tablet 200 mg PO DAILY 05/12/25 Unk nown History (Diflucan) Lactobacillus acidophilus 2,000 mmu cells PO DAILY Unknown History (Acidophilus capsule) alendronate 5 mg tablet 7 mg PO DAILY 05/13/25 Unkno wn History prednisone 10 mg tablet 10 mg PO DAILY 05/13/25 Unkn own History Allergy/AdvReac Type Severity Reaction Status Date / Time Sulfa (Sulfonamide Allergy Hives AND Verified 05/12/25 08:43 Antibiotics) RESP DISTRESS amoxicillin (From Augmentin) AdvReac Other Verified 05/12/25 08:43 clavulanic acid (From AdvReac Other Verified 05/12/25 08:43 Augmentin) codeine AdvReac Itching Verified 05/12/25 08:43 nitrofurantoin AdvReac DECREASED Verified 05/12/25 08:43 (Nitrofurantoin) HEART RATE Family History Sister Breast cancer Diabetes Brother Liver cancer Diabetes Father Diabetes CVA (cerebral vascular accident) Surgical History History of cardiac catheterization History of tonsillectomy History of thyroidectomy History of right hip replacement History of total right knee replacement History of hysterectomy History of carpal tunnel surgery of right wrist Social History Smoking Status: Current every day smoker (Patient smoked today.) tobacco type: cigarettes alcohol intake: never Review of Systems (Anesthesia) ROS Narrative System reviewed and no additional complaints, except as documented.
--- NOTE | 2025-05-13 12:14 | HP.PCM_ITS ---
HPI - General General Date of Admission: 05/13/25 Date of Service: 05/13/25 Chief Complaint: Abdominal pain and nausea HPI Narrative AMNA SEQUEIRA, is a 70 F who presents for recurrent nausea and abdominal pain before eating. 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 She was treated with antibiotics and sent home without surgeries. Amna reports having to take 3 Dramamine to even think about food or she will get severely nauseous. She also reports early satiety and increased abdominal bloating with associated increase in belching and mild flatulence. She states that sucralfate suspension helps some but ondansetron does not really help that much. She denies difficulty chewing and swallowing, throat clearing, s inus drainage, reflux, vomiting, abdominal pain, constipation, hematochezia, and melena. She states the Reglan didn't do a damn bit of good and her stomach emptying test is this . She expresses concerns over being excessively fatigued and just wants someone to give her a B12 shot or something. Reviewed blood tests results with her and her daughter; normal amylase and lipase, elevated serum gastrin but she had recently completed antibiotics and is on PPI therapy. * GET 1hr * blood for pancreatic enzymes * metoclopramide 5mg PO QAC 30minutes before eating x2wks * office FU [facility] Medical History History of stress test Wears hearing aid Wears dentures Wears glasses Thyroid disease Walker as ambulation aid Ambulates with cane Rheumatoid arthritis Low iron DVT (deep venous thrombosis) Restless legs Gastric reflux Smoker History of echocardiogram Cardiology follow-up encounter Hypertension Rheumatoid arthritis in remission Pancreatic pseudocyst Severe protein-calorie malnutrition Perforated gastric ulcer Chronic kidney disease, stage 3 COPD (chronic obstructive pulmonary disease) Anxiety Epistaxis Chronic anticoagulation Altered mental status History of DVT (deep vein thrombosis) Asthma Fibromyalgia Anemia Osteoporosis GERD without esophagitis Insomnia Dysphagia Osteoarthritis Home Medications ?Medication ?Instructions ?Recorded ?Last Taken ?Type albuterol sulfate 90 mcg/actuation 1 puff inhalation D AILY 07/29/13 Unknown History aerosol inhaler (Ventolin HFA) fluticasone 500 mcg-salmeterol 50 1 puff inhalation .q d 07/29/13 Unknown History mcg/dose blistr powdr for inhalation (Advair Diskus) folic acid 1 mg tablet 1 mg PO DAILY@0800 07/29/13 Unknown History montelukast 10 mg tablet 10 mg PO DAILY 07/29/13 Unkn own History tiotropium bromide 18 mcg capsule 1 puff inhalation DA RAFIA 07/29/13 Unknown History with inhalation device (Spiriva with HandiHaler) warfarin 2.5 mg tablet (Octtoven) 2.5 mg PO QODAY 07/0205/10/25 History warfarin 5 mg tablet (Jantoven) 5 mg PO QODAY 07/29/13 05/09/25 History gabapentin 800 mg tablet 800 mg PO TID 07/28/24 Unkno wn History isosorbide mononitrate 30 mg 30 mg PO DAILY 07/28/24 U nknown History tablet,extended release 24 hr levothyroxine 175 mcg tablet 175 mcg PO DAILY 07/28/24 Unknown History oxycodone 10 mg tablet 10 mg PO Q4H PRN pain Unknown History potassium chloride 20 mEq 20 meq PO DAILY 07/28/24 Unk nown History tablet,extended release(part/cryst) (Klor-Con M) alprazolam 0.25 mg tablet 0.25 mg PO TID PRN anxiety 1 Unknown History melatonin 5 mg tablet 5 mg PO HS PRN sleep 4 Unknown History methocarbamol 750 mg tablet 500 mg PO Q6H PRN Anxiety 08/08/24 Unknown History (Robaxin-750) omeprazole 40 mg capsule,delayed 40 mg PO QDAY 4 Unknown History release ondansetron 4 mg disintegrating 4 mg PO Q6H 08/08/24 U nknown History tablet sucralfate 100 mg/mL oral 10 ml PO QACHS 08/08/24 Unkn own History suspension (Carafate) metoclopramide HCl 5 mg tablet 5 mg PO QAC #42 tabs Unknown Rx fluconazole 200 mg tablet 200 mg PO DAILY 05/12/25 Unk nown History (Diflucan) Lactobacillus acidophilus 2,000 mmu cells PO DAILY Unknown History (Acidophilus capsule) alendronate 5 mg tablet 7 mg PO DAILY 05/13/25 Unkno wn History prednisone 10 mg tablet 10 mg PO DAILY 05/13/25 Unkn own History Allergy/AdvReac Type Severity Reaction Status Date / Time Sulfa (Sulfonamide Allergy Hives AND Verified 05/12/25 08:43 Antibiotics) RESP DISTRESS amoxicillin (From Augmentin) AdvReac Other Verified 05/12/25 08:43 clavulanic acid (From AdvReac Other Verified 05/12/25 08:43 Augmentin) codeine AdvReac Itching Verified 05/12/25 08:43 nitrofurantoin AdvReac DECREASED Verified 05/12/25 08:43 (Nitrofurantoin) HEART RATE Family History Sister Breast cancer Diabetes Brother Liver cancer Diabetes Father Diabetes CVA (cerebral vascular accident) Surgical History History of cardiac catheterization History of tonsillectomy History of thyroidectomy History of right hip replacement History of total right knee replacement History of hysterectomy History of carpal tunnel surgery of right wrist Social History Smoking Status: Current every day smoker (Patient smoked today.) tobacco type: cigarettes alcohol intake: never ROS Constitutional Constitutional: Denies fatigue, fever(s), poor appetite, weight gain or weight loss Gastrointestinal Gastrointestinal: Denies belching, bloating, change in bowel habits, change in stool character, chewing difficulty, coffee ground emesis, constipation, cramping, diarrhea, dyspepsia, dysphagia, early satiety, excessive flatus, fecal incontinence, heartburn, hematemesis, hematochezia, hemorrhoids, loose stools, melena, nausea, odynophagia, rectal bleeding, tenesmus, vomiting or weight changes Vital Signs Vital Signs Vital Signs: 05/13/25 11:06 05/13/25 11:08 05/13/25 11:08 Temperature 98 F Temperature Source Temporal Pulse Rate 85 93 Respiratory Rate 20 H 19 H Respiratory Pattern Tachypnea Tachypnea Blood Pressure 134/85 H Blood Pressure Mean 101 Blood Pressure Source Monitor Blood Pressure Position Semi-Fowlers Blood Pressure Location Right Arm Pulse Ox 88 Oxygen Delivery Method Room Air 05/13/25 12:01 Temperature 98 F Temperature Source Pulse Rate 93 Respiratory Rate 19 H Respiratory Pattern Blood Pressure 134/85 H Blood Pressure Mean Blood Pressure Source Blood Pressure Position Blood Pressure Location Pulse Ox 88 Oxygen Delivery Method Room Air Weight Weight: 196 lb 3.382 oz Body Mass Index (BMI) 33.7 Physical Exam Const alert, oriented x3, no apparent distress and healthy appearing General Appearance: cooperative GI normal to inspection, nondistended, normoactive bowel sounds, soft to palpation, non-tender and non-distended Percussion: normal to percussion Rectal Exam: deferred Results Lab / Micro Data Labs: Laboratory Results - last 24 hr 05/13/25 10:32: POC PT 21.0 H, INR 1.9 05/13/25 10:35: PT 20.2 H, INR 1.7 Assessment & Plan Assessment/Plan (1) Early satiety: (2) Nausea: PLAN: Assessment and Plan Assessment and Plan (1) Early satiety: Status: Acute (2) Nausea: Status: Acute Plan AMNA SEQUEIRA, is a 69 F who presents to the office today for establishment with [facility] for recurrent nausea and abdominal pain before eating. Discussed care plan with her and her daughter. Amna is agreeable to repeat endoscopy as long as she's Knocked completely out for it because she'll hurt somebody. * complete GET as scheduled * schedule EGD * ok to continue Dramamine * office FU 1wk after endoscopy
--- NOTE | 2025-05-13 12:59 | OP.CCLET_ITS ---
05/13/2025 Galindo Sun Re : Upper GI endoscopy procedure for Amna Calles Dino This procedure was performed on Tuesday, May 13, 2025. My impressions and recommendations are as follows: Impressions : - Normal esophagus. - Chronic gastritis. Biopsied. - Gastroparesis. - Erythematous duodenopathy. Biopsied. Recommendations : - Discharge patient to home. - Resume previous diet. - Continue present medications. - Await pathology results. My findings are described in the full procedure note, which is enclosed. If I can be of further assistance, please feel free to contact me at . Sincerely, Noe Wright, 05/13/2025 12:58:49 PM This report has been signed electronically.
--- NOTE | 2025-05-13 12:59 | OP.EGD_ITS ---
Patient Name: Amna Cardoso Procedure Date: 05/13/2025 12:37 PM Date of : 1955 Age: 70 Procedure: Upper GI endoscopy Indications: Epigastric abdominal pain, Functional Dyspepsia, Dyspepsia, Indigestion, Failure to respond to medical treatment Providers: Noe Wright DO Referring MD: Galindo Sun Medicines: Monitored Anesthesia Care Patient Profile: This is a 70 year old female. Refer to note in patient chart for documentation of history and physical. Patient has symptoms of chronic abdominal cramping, chronic abdominal distention, chronic right upper quadrant abdominal pain, chronic epigastric abdominal pain, chronic dyspepsia and chronic nausea. Complications: No immediate complications. Procedure: Pre-Anesthesia Assessment: - Prior to the procedure, a History and Physical was performed, and patient medications and allergies were reviewed. The risks and benefits of the procedure and the sedation options and risks were discussed with the patient. All questions were answered and informed consent was obtained. Patient identification and proposed procedure were verified by the physician in the pre-procedure area. Mental Status Examination: alert and oriented. Airway Examination: normal oropharyngeal airway and neck mobility. Respiratory Examination: clear to auscultation. CV Examination: normal. Prophylactic Antibiotics: The patient does not require prophylactic antibiotics. Prior Anticoagulants: The patient has taken no anticoagulant or antiplatelet agents except for NSAID medication. ASA Grade Assessment: II - A patient with mild systemic disease. After reviewing the risks and benefits, the patient was deemed in satisfactory condition to undergo the procedure. The anesthesia plan was to use monitored anesthesia care (MAC). Immediately prior to administration of medications, the patient was re-assessed for adequacy to receive sedatives. The heart rate, respiratory rate, oxygen saturations, blood pressure, adequacy of pulmonary ventilation, and response to care were monitored throughout the procedure. The physical status of the patient was re-assessed after the procedure. After obtaining informed consent, the endoscope was passed under direct vision. Throughout the procedure, the patient's blood pressure, pulse, and oxygen saturations were monitored continuously. The Endoscope was introduced through the mouth, and advanced to the fourth part of the duodenum. Small bowel enteroscopy was deemed necessary. The upper GI endoscopy was accomplished without difficulty. The patient tolerated the procedure well. Scope In: 12:44:05 PM Scope Out: 12:49:35 PM Total Procedure Duration Time 0 hours 5 minutes 30 seconds Findings: The examined esophagus was normal. Patchy mild inflammation characterized by erythema was found in the entire examined stomach. Biopsies were taken with a cold forceps for histology. Verification of patient identification for the specimen was done. Estimated blood loss was minimal. Biopsies were taken with a cold forceps for Helicobacter pylori testing. Verification of patient identification for the specimen was done. Estimated blood loss was minimal. Suspect gastroparesis due to absence of peristalsis and patient symptoms. Patchy mildly erythematous mucosa without active bleeding and with no stigmata of bleeding was found in the entire duodenum. Biopsies were taken with a cold forceps for histology. Verification of patient identification for the specimen was done. Estimated blood loss was minimal. Impression: - Normal esophagus. - Chronic gastritis. Biopsied. - Gastroparesis. - Erythematous duodenopathy. Biopsied. Recommendation: - Discharge patient to home. - Resume previous diet. - Continue present medications. - Await pathology results. Procedure Code(s): --- Professional --- 51034, Small intestinal endoscopy, enteroscopy beyond second portion of duodenum, not including ileum; with biopsy, single or multiple CPT copyright 2021 [employer]. All rights reserved. The codes documented in this report are preliminary and upon soyfreeze operator review may be revised to meet current compliance requirements. Noe Wright DO 05/13/2025 12:58:49 PM This report has been signed electronically. Number of Addenda: 0 Note Initiated On: 05/13/2025 12:37 PM
--- NOTE | 2025-05-13 13:00 | PCM.POST.ANE ---
Anesthesia: Postop Eval I Current Vital Signs Temperature: 97.5 F Pulse Rate: 85 Blood Pressure: 106/60 Respiratory Rate: 18 Pulse Ox: 96 Oxygen Delivery Method: Nasal Cannula Oxygen Flow Rate (L/min): 2 Assessment Airway patent: Yes Spontaneous unlabored respirations: Yes Mental status: Awake nausea: No Vomiting: No Anesthesia Complication: No Fluid Hydration Crystalloid volume administer (ml): 300 Total IV fluid infused: 300 Progress Note Anesthesia document: Postop Eval 1 completed: Yes
--- NOTE | 2025-05-13 19:13 | PCM.POSTANE2 ---
Anesthesia Postop Eval I Sum Postop Eval Completion status Anesthesia document: Postop Eval 1 completed: Yes Anesthesia Postop Eval I Summary Anesthesia Postop Eval I Summary: Anesthesia Postop Eval I: Assessment Summary Airway patent Yes 05/13/25 13:00 [email or web address] Spontaneous unlabored Yes 05/13/25 13:00 [email or web address] respirations Mental status Awake 05/13/25 13:00 [email or web address] nausea No 05/13/25 13:00 [email or web address] Vomiting No 05/13/25 13:00 [email or web address] Anesthesia Postop Eval I: Fluid Summary Crystalloid volume administer 300 05/13/25 13:00 [email or web address] (ml) Colloids volume administered ( ml) Blood Product volume administered (ml) Total IV fluid infused 300 05/13/25 13:00 [email or web address] Anesthesia Postop Eval I: Summary Notes Anesthesia Complication No 05/13/25 13:00 [email or web address] Anesthesia Complication Comment: Post-operative progress note Anesthesia: Postop Eval II Evaluation Mental status: Awake and Calm Pain Level: 0 nausea: No Vomiting: No Complications Anesthesia Complication: No
== END 2025-05-13 14:16 | disposition home or self-care (01) ==
LOC: EN 10:26 → AC 10:29
PROVIDERS: PCP Family Medicine; Referring Provider Family Medicine; Visit Provider Internal Medicine Gastroenterology
PROC: 0DJ08ZZ Inspection of Upper Intestinal Tract, Via Natural or Artificial Opening Endoscopic (ICD-10-PCS; CPT 43235; principal; 2025-05-13 11:25)
DX: K29.80 Duodenitis without bleeding (principal); J44.9 Chronic obstructive pulmonary disease, unspecified; N18.30 Chronic kidney disease, stage 3 unspecified; K31.84 Gastroparesis; K29.50 Unspecified chronic gastritis without bleeding; I12.9 Hypertensive chronic kidney disease with stage 1 through stage 4 chronic kidney disease, or unspecified chronic kidney disease; R68.81 Early satiety; Z86.718 Personal history of other venous thrombosis and embolism; Z79.01 Long term (current) use of anticoagulants; K21.9 Gastro-esophageal reflux disease without esophagitis; F17.210 Nicotine dependence, cigarettes, uncomplicated
CPT/HCPCS: 44361; 36415; 36416; 85610; 88305; 94640; J2405

== ENCOUNTER 2025-06-19 20:28 | Inpatient (IN) | payer MEDICARE, MEDICAID, SELFPAY ==
[2025-06-19] VITALS (12 sets, daily range): BP systolic 131–161; BP diastolic 66–92; PULSE 97–129; RESP 18–29; TEMP 36.6–36.9; O2SAT 20–94; BMI 35.4; BMI 34.5
--- NOTE | 2025-06-19 20:47 | ED.VIS.DYS ---
HPI <BROWN Causey - Last Filed: 06/19/25 21:47> History of Present Illness Chief Complaint: Shortness of Breath Narrative Narrative: 70-year-old female with PMH of tobacco use, COPD, CKD, rheumatoid lung disease on prednisone 10 mg daily presents with 2 days of increased cough, shortness of breath and wheezing. She uses albuterol and several inhalers at home but does not have a nebulizer machine. She smokes 1 PPD. She does not wear home oxygen. She denies fever, chills, or chest pain. PFSH <BROWN Causey - Last Filed: 06/19/25 21:47> [facility] Medical History (Updated 06/19/25 @ 21:[address] Phillip Reynolds MD) CKD (chronic kidney disease), stage II History of stress test Wears hearing aid Wears dentures Wears glasses Thyroid disease Walker as ambulation aid Ambulates with cane Rheumatoid arthritis Low iron DVT (deep venous thrombosis) Restless legs Smoker History of echocardiogram Cardiology follow-up encounter Hypertension Pancreatic pseudocyst Severe protein-calorie malnutrition Perforated gastric ulcer COPD (chronic obstructive pulmonary disease) Anxiety Chronic anticoagulation Asthma Fibromyalgia Anemia Osteoporosis GERD without esophagitis Insomnia Dysphagia Osteoarthritis Home Medications ?Medication ?Instructions ?Recorded ?Last Taken ?Type albuterol sulfate 90 mcg/actuation 1 puff inhalation DAILY 07/29/13 Unknown History aerosol inhaler (Ventolin HFA) fluticasone 500 mcg-salmeterol 50 1 puff inhalation .qd 07/29/13 Unknown History mcg/dose blistr powdr for inhalation (Advair Diskus) folic acid 1 mg tablet 1 mg PO DAILY@0800 07/29/13 Unknown History montelukast 10 mg tablet 10 mg PO DAILY 07/29/13 Unknown History tiotropium bromide 18 mcg capsule 1 puff inhalation DAILY 07/29/13 Unknown History with inhalation device (Spiriva with HandiHaler) warfarin 2.5 mg tablet (Jantoven) 2.5 mg PO QODAY 07/29/13 05/10/25 History warfarin 5 mg tablet (Jantoven) 5 mg PO QODAY 07/29/13 05/09/25 History gabapentin 800 mg tablet 800 mg PO TID 07/28/24 Unknown History isosorbide mononitrate 30 mg 30 mg PO DAILY 07/28/24 Unknown History tablet,extended release 24 hr levothyroxine 175 mcg tablet 175 mcg PO DAILY 07/28/24 Unknown History oxycodone 10 mg tablet 10 mg PO Q4H PRN pain 07/28/24 Unknown History potassium chloride 20 mEq 20 meq PO DAILY 07/28/24 Unknown History tablet,extended release(part/cryst) (Klor-Con M) alprazolam 0.25 mg tablet 0.25 mg PO TID PRN anxiety 08/08/24 Unknown History melatonin 5 mg tablet 5 mg PO HS PRN sleep 08/08/24 Unknown History methocarbamol 750 mg tablet 500 mg PO Q6H PRN Anxiety 08/08/24 Unknown History (Robaxin-750) omeprazole 40 mg capsule,delayed 40 mg PO QDAY 08/08/24 Unknown History release ondansetron 4 mg disintegrating 4 mg PO Q6H 08/08/24 Unknown History tablet sucralfate 100 mg/mL oral 10 ml PO QACHS 08/08/24 Unknown History suspension (Carafate) Lactobacillus acidophilus 2,000 mmu cells PO DAILY 05/13/25 Unknown History (Acidophilus capsule) alendronate 5 mg tablet 7 mg PO DAILY 05/13/25 Unknown History prednisone 10 mg tablet 10 mg PO DAILY 05/13/25 Unknown History erythromycin 250 mg tablet 250 mg PO TID 06/19/25 Unknown History fluconazole 150 mg tablet 150 mg PO QWEEK 06/19/25 Unknown History Allergy/AdvReac Type Severity Reaction Status Date / Time Sulfa (Sulfonamide Allergy Hives AND Verified 06/19/25 20:29 Antibiotics) RESP DISTRESS amoxicillin (From Augmentin) AdvReac Other Verified 06/19/25 20:29 clavulanic acid (From AdvReac Other Verified 06/19/25 20:29 Augmentin) codeine AdvReac Itching Verified 06/19/25 20:29 nitrofurantoin AdvReac DECREASED Verified 06/19/25 20:29 (Nitrofurantoin) HEART RATE Family History Sister Breast cancer Diabetes Brother Liver cancer Diabetes Father Diabetes CVA (cerebral vascular accident) Surgical History History of cardiac catheterization History of tonsillectomy History of thyroidectomy History of right hip replacement History of total right knee replacement History of hysterectomy History of carpal tunnel surgery of right wrist Social History Smoking Status: Current every day smoker tobacco type: cigarettes alcohol intake: never ROS <BROWN Causey - Last Filed: 06/19/25 21:47> ROS ED ROS Narrative Constitutional: Negative for fever, chills, malaise. CVS: Negative for palpitations, chest pain, syncope. Respiratory: Positive for shortness of breath, cough. GI: Negative for abdominal pain, nausea, vomiting. EXAM <BROWN Causey - Last Filed: 06/19/25 21:47> Physical Exam Narrative Exam Narrative: CONST: Patient sitting in no acute distress. EYES: Normal inspection. NECK: Normal inspection. RESP: Mild respiratory distress, expiratory wheezing throughout all lung gentile. CVS: Regular rate and rhythm, no murmur, no gallop. SKIN: Color normal, no rash, warm, dry, intact. EXTREMITIES: Normal appearance, no pedal edema. NEURO: Alert and answering questions appropriately. PSYCH: Normal affect. Const Vital Signs: 06/19/25 20:28 06/19/25 20:28 06/19/25 20:34 Temperature 98 F 98 F Temperature Source Temporal Oral Pulse Rate 97 129 H Respiratory Rate 29 H 28 H Respiratory Effort Respiratory Pattern Blood Pressure 154/92 H 160/92 H Blood Pressure Mean 112 114 Pulse Ox 80 89 85 Oxygen Delivery Method Room Air Room Air Room Air Oxygen Flow Rate (L/min) 06/19/25 20:37 06/19/25 20:45 06/19/25 20:45 Temperature Temperature Source Pulse Rate 100 Respiratory Rate 22 H Respiratory Effort Short of Breath Respiratory Pattern Tachypnea Tachypnea Blood Pressure Blood Pressure Mean Pulse Ox 94 Oxygen Delivery Method Nasal Cannula Nasal Cannula Oxygen Flow Rate (L/min) 3 3 06/19/25 21:03 06/19/25 21:19 06/19/25 21:19 Temperature Temperature Source Pulse Rate 101 H Respiratory Rate 23 H Respiratory Effort Respiratory Pattern Blood Pressure Blood Pressure Mean Pulse Ox 94 88 92 Oxygen Delivery Method Nasal Cannula Room Air Nasal Cannula Oxygen Flow Rate (L/min) 3 2 06/19/25 21:31 06/19/25 21:35 06/19/25 21:49 Temperature 98 F 98 F Temperature Source Axillary Pulse Rate 104 H 105 H 101 H Respiratory Rate 18 20 H 18 Respiratory Effort Respiratory Pattern Normal Blood Pressure 131/66 H 161/86 H Blood Pressure Mean 87 111 Pulse Ox 92 92 Oxygen Delivery Method Nasal Cannula Oxygen Flow Rate (L/min) 2 <Dr. Phillip Reynolds MD - Last Filed: 06/19/25 21:58> Physical Exam Const Vital Signs: 06/19/25 20:28 06/19/25 20:28 06/19/25 20:34 Temperature 98 F 98 F Temperature Source Temporal Oral Pulse Rate 97 129 H Respiratory Rate 29 H 28 H Respiratory Effort Respiratory Pattern Blood Pressure 154/92 H 160/92 H Blood Pressure Mean 112 114 Pulse Ox 80 89 85 Oxygen Delivery Method Room Air Room Air Room Air Oxygen Flow Rate (L/min) 06/19/25 20:37 06/19/25 20:45 06/19/25 20:45 Temperature Temperature Source Pulse Rate 100 Respiratory Rate 22 H Respiratory Effort Short of Breath Respiratory Pattern Tachypnea Tachypnea Blood Pressure Blood Pressure Mean Pulse Ox 94 Oxygen Delivery Method Nasal Cannula Nasal Cannula Oxygen Flow Rate (L/min) 3 3 06/19/25 21:03 06/19/25 21:19 06/19/25 21:19 Temperature Temperature Source Pulse Rate 101 H Respiratory Rate 23 H Respiratory Effort Respiratory Pattern Blood Pressure Blood Pressure Mean Pulse Ox 94 88 92 Oxygen Delivery Method Nasal Cannula Room Air Nasal Cannula Oxygen Flow Rate (L/min) 3 2 06/19/25 21:31 06/19/25 21:35 06/19/25 21:49 Temperature 98 F 98 F Temperature Source Axillary Pulse Rate 104 H 105 H 101 H Respiratory Rate 18 20 H 18 Respiratory Effort Respiratory Pattern Normal Blood Pressure 131/66 H 161/86 H Blood Pressure Mean 87 111 Pulse Ox 92 92 Oxygen Delivery Method Nasal Cannula Oxygen Flow Rate (L/min) 2 MDM <BROWN Causey - Last Filed: 06/19/25 21:47> MDM MDM Narrative Medical decision making narrative: Differential includes but not limited to COPD exacerbation, pneumonia 70-year-old female has COPD and rheumatoid lung disease on chronic prednisone and presents with 2 days of increased cough, shortness of breath and wheezing. She was about 82% on room air and was placed on 2 L O2. She has expiratory wheezing throughout all lung gentile that seems consistent with a COPD exacerbation so I ordered DuoNebs and Solu-Medrol. Labs showed WBC of 12.0. She often has a mild leukocytosis likely from chronic prednisone use and it is lower than prior. Hemoglobin is 8.9. It looks like her baseline is more between 10-11 but the last level was about a year ago. Electrolytes and renal function are normal. Troponin is 12 with delta ordered but I have low suspicion for ACS. Chest x-ray is negative. She was given DuoNeb on presentation and then albuterol x 1 along with the steroids and is still symptomatic and requiring 2 L O2. I will discuss the case with the hospitalist for admission for COPD exacerbation. History & Record Review Discussion w/independent historian: Patient and Family Additional record(s) reviewed:: Prior ED visit Lab Data Attestation: I reviewed the patient's lab results. Labs: Laboratory Results - last 24 hr 06/19/25 20:44 WBC 12.0 H RBC 4.39 Hgb 8.9 L Hct 32.3 L MCV 73.6 L MCH 20.3 L MCHC 27.6 L RDW Std Deviation 55.8 H RDW Coeff of Demetrice 21.2 H Plt Count 430 MPV 8.4 Immature Gran % (Auto) 0.400 Neut % (Auto) 76.9 H Lymph % (Auto) 14.6 L Burnet % (Auto) 6.4 Eos % (Auto) 1.2 Baso % (Auto) 0.5 Absolute Neuts (auto) 9.3 H Absolute Lymphs (auto) 1.75 Nucleated RBC % 0.2 Sodium 138 Potassium 3.9 Chloride 100 Carbon Dioxide 24.0 Anion Gap 14 BUN 8 Creatinine 0.68 L Estim Creat Clear Calc 72.54 Est GFR (MDRD) Non-Af 94 BUN/Creatinine Ratio 11.9 Glucose 88 Calcium 8.6 Troponin T High Sens 12 Radiography Diagnostic Testing: Clinical Impression(s) from Imaging Studies Chest X-Ray 06/19/25 20:51 IMPRESSION: No Acute Findings. Reading Location: [facility] ED attending interpretation 1 view chest x-ray shows normal heart size, no acute infiltrate. <Dr. Phillip Reynolds MD - Last Filed: 06/19/25 21:58> MDM Lab Data Labs: Laboratory Results - last 24 hr 06/19/25 20:44 WBC 12.0 H RBC 4.39 Hgb 8.9 L Hct 32.3 L MCV 73.6 L MCH 20.3 L MCHC 27.6 L RDW Std Deviation 55.8 H RDW Coeff of Demetrice 21.2 H Plt Count 430 MPV 8.4 Immature Gran % (Auto) 0.400 Neut % (Auto) 76.9 H Lymph % (Auto) 14.6 L Burnet % (Auto) 6.4 Eos % (Auto) 1.2 Baso % (Auto) 0.5 Absolute Neuts (auto) 9.3 H Absolute Lymphs (auto) 1.75 Nucleated RBC % 0.2 Sodium 138 Potassium 3.9 Chloride 100 Carbon Dioxide 24.0 Anion Gap 14 BUN 8 Creatinine 0.68 L Estim Creat Clear Calc 72.54 Est GFR (MDRD) Non-Af 94 BUN/Creatinine Ratio 11.9 Glucose 88 Calcium 8.6 Troponin T High Sens 12 Radiography Diagnostic Testing: Clinical Impression(s) from Imaging Studies Chest X-Ray 06/19/25 20:51 IMPRESSION: No Acute Findings. Reading Location: [facility] Treatment and Re-Evaluation Comments:: I have personally performed a face to face assessment of the patient and have reviewed the SALAZAR Note. I performed a substantive portion of the visit including all aspects of the following. My acosta findings include: History is 2-3 days of increased cough, shortness of breath, no chest pain, orthopnea, fevers, chills, leg edema. History of COPD no home oxygen. Exam is diffuse wheezing and rales, symmetric, no respiratory distress improved after nebulizer. Nontoxic. Converses in full sentences. No pedal edema or JVD. Heart regular. Medical Decison Making 1 view chest x-ray my interpretation shows no pneumonia radiology in agreement. No evidence of pulmonary edema either. Labs noted. On room air she is 88-90% after the treatments. With ambulation, she is more hypoxic and dyspneic and has respiratory insufficiency. Plan is for admission and empiric treatment with steroids antibiotics. Other additions or changes: [None] Discharge Plan Triage Chief Complaint: Shortness of Breath ED Midlevel Provider: Pati Faria ED Provider: Phillip Reynolds Dx/Rx/DC Orders Clinical Impression: Acute exacerbation of chronic obstructive pulmonary disease (COPD), Hypoxia, Rheumatoid lung disease, Anemia, Acute respiratory insufficiency Prescriptions: No Action ondansetron 4 mg tablet,disintegrating 4 mg PO Q6H omeprazole 40 mg capsule,delayed release(DR/EC) 40 mg PO QDAY sucralfate [Carafate] 100 mg/mL suspension 10 ml PO QACHS alprazolam 0.25 mg tablet 0.25 mg PO TID PRN (Reason: anxiety) melatonin 5 mg tablet 5 mg PO HS PRN (Reason: sleep) fluticasone propion-salmeterol [Advair Diskus] 1 PUFF inhaler 1 puff inhalation .qd Patient Comments: LUNGS/COPD folic acid 1 MG tablet 1 mg PO DAILY@0800 Patient Comments: SUPPLEMENT warfarin [Jantoven] 2.5 MG tablet 2.5 mg PO QODAY Patient Comments: BLOOD THINNER warfarin [Jantoven] 5 MG tablet 5 mg PO QODAY Patient Comments: BLOOD THINNER montelukast 10 MG tablet 10 mg PO DAILY Patient Comments: LUNGS/COPD albuterol sulfate [Ventolin HFA] 1 INHALER inhaler 1 puff inhalation DAILY Patient Comments: LUNGS/COPD tiotropium bromide [Spiriva with HandiHaler] 1 PUFF inhaler 1 puff inhalation DAILY Patient Comments: LUNGS/COPD methocarbamol [Robaxin-750] 750 mg tablet 500 mg PO Q6H PRN (Reason: Anxiety) Patient Comments: musculoskeletal pain prednisone 10 mg tablet 10 mg PO DAILY Acidophilus Capsule 2,000 mmu cells PO DAILY alendronate 5 mg tablet 7 mg PO DAILY fluconazole 150 mg tablet 150 mg PO QWEEK erythromycin 250 mg tablet 250 mg PO TID levothyroxine 175 mcg tablet 175 mcg PO DAILY isosorbide mononitrate 30 mg tablet extended release 24 hr 30 mg PO DAILY potassium chloride [Klor-Con M20] 20 mEq tablet,ER particles/crystals 20 meq PO DAILY gabapentin 800 mg tablet 800 mg PO TID oxycodone 10 mg tablet 10 mg PO Q4H PRN (Reason: pain) Primary Care Provider: Galindo Sun Referrals: Galindo Sun MD [Primary Care Provider] - Print Language: Malay Disposition Disposition: [facility]
--- NOTE | 2025-06-19 20:51 | RAD_ITS ---
PROCEDURE: CHEST 1 VIEW (PORTABLE) 06/19/2025 REASON FOR EXAM: HYPOXIA TECHNIQUE: Frontal view of the chest. FINDINGS: The heart is normal in size. The lungs are clear. No acute osseous abnormalities. RAD/Chest 1 View (Portable) IMPRESSION: No Acute Findings. Reading Location: [id number]
[2025-06-19 20:56] LABS: Hematocrit 32.3 % (37-47); Hemoglobin 8.9 g/dL (12.0-15.0); Immature Granulocytes Count 0.050 X10^3/uL (0.0-0.0); Mean Corp Hgb Conc 27.6 g/dL (32-36); Mean Corpuscular Volume 73.6 fL (81-99); Mean Platelet Vol. 8.4 fl (6.2-12.0); NRBC Flagged by Analyzer 0.2 % (0-5); POSITIVE MORPHOLOGY YES; Platelet Count 430 K/mm3 (150-450); RBC Distribution Width CV 21.2 % (11.6-14.6); RBC Distribution Width SD 55.8 fl (35.1-43.9); Red Blood Count 4.39 M/mm3 (4.2-5.4); White Blood Count 12.0 K/mm3 (4.4-11.0)
[2025-06-19 21:05] LABS: Differential Indicated SCAN CRITERIA MET
[2025-06-19] MEDS: Albuterol 2.5 MG/3 ML VIAL.NEB. INHALATION (21:21)
[2025-06-19 21:30] LABS: Troponin T High Sensitivity 12 ng/L (<=14)
--- OUTSIDE RECORDS SUMMARY | 2025-06-19 21:36 | XMS RPT_ITS | CCD ---
Author Organization [facility] Care Team Providers Care Retail Sales Professional Name Role Phone Galindo Gutierrez Primary Care Provider [phone] Galindo Gutierrez MD Primary Care Provider [phone] GALINDO GUTIERREZ Primary Care Unavailable SELF, SELF Referring Unavailable GALINDO ZEPEDA Attending Unavailable GALINDO ZEPEDA Attending Unavailable GALINDO ZEPEDA Referring Unavailable GALINDO GUTIERREZ Primary Care Unavailable TULIO LOVE~[id number], TULIO Pond Admitting Unavailable GRACE LOVE~[id number], GRACE JUNIOR Attending Unavailable GALINDO GUTIERREZ Primary Care Unavailable GALINDO GUTIERREZ Consulting Unavailable GALINDO GUTIERREZ Consulting Unavailable ELTY LOVE, DR IBRAHIM Consulting Myonr DAVIDSON MD, DR IBRAHIM Consulting Mynor ALCANTAR MD, DR ELLIOT Carrington Consulting Unavail yaritza ALCANATR MD, DR ELLIOT Carrington Consulting Unavail able TULIO LOVE, ELVER Pond Consulting Unavailable TULIO LOVE, ELVER Pond Consulting Unavailable IKER LOVE, ANNA Deshpande Consulting Unavailable IKER LOVE, ANNA Deshpande Consulting Unavailable NGHIA PAIrinaC, SATYA R Consulting Unavailabl franci AGRAWAL PA-C, SATYA R Consulting Unavaileryn EDWARDS MD, HEAVEN JUNIOR Consulting Unavaileryn EDWARDS MD, [facility] Consulting Unavaileryn WOODS MD, KETTY Briones Consulting Unavailable PEGGY LOVE, KETTY Briones Consulting Unavailable ELISEO LOVE, DR SONYA Gillette Consulting Unavaila noemy GOMES MD, DR SONYA Gillette Consulting Unavaila BA Ye MD Attending Unavailable BA MENENDEZ MD Primary Care Unavailable BA MENENDEZ MD Admitting Unavailable Unavailable Primary Care Provider Galindo Cobb MD Primary Care Provider AUBREE IRELAND Referring Unavailable AUBREE IRELAND Referring Unavailable GALINDO GUTIERREZ Primary Care Unavailable AUBREE IRELAND Referring Unavailable GALINDO GUTIERREZ Primary Care Unavailable Brenda LOVE, Dr. Medley Primary Care Provider Dr. Galindo Gutierrez MD Referring Provider Filippo GREEN END MAN-C, Allyson Attending Provider Filippo GREEN END MAN-C, Allyson Referring Provider [phone] GALINDO GUTIERREZ Admitting Unavailable BROWN, GALINDO Attending Unavailable BROWN, GALINDO Primary Care Unavailable BROWN, GALINDO Consulting Unavailable PROVIDER, UNKNOWN Consulting Unavailable PROVIDER, UNKNOWN Consulting Unavailable PROVIDER, UNKNOWN Consulting Unavailable BRENDA, GALINDO Admitting Unavailable BROWN, GALINDO Attending Unavailable BROWN, GALINDO Primary Care Unavailable BROWN, GALINDO Consulting Unavailable PROVIDER, UNKNOWN Consulting Unavailable PROVIDER, UNKNOWN Consulting Unavailable PROVIDER, UNKNOWN Consulting Unavailable BRENDA, GALINDO Admitting Unavailable BROWN, GALINDO Attending Unavailable BROWN, GALINDO Primary Care Unavailable BROWN, GALINDO Consulting Unavailable PROVIDER, UNKNOWN Consulting Unavailable PROVIDER, UNKNOWN Consulting Unavailable PROVIDER, UNKNOWN Consulting Unavailable AB MENENDEZ MD Admitting Unavailable BA MENENDEZ MD Attending Unavailable BA MENENDEZ MD Primary Care Unavailable BROWN, GALINDO Consulting Unavailable PROVIDER, UNKNOWN Consulting Unavailable PROVIDER, UNKNOWN Consulting Unavailable PROVIDER, UNKNOWN Consulting Unavailable AUBREE IRELAND Attending Unavailable GALINDO GUTIERREZ Primary Care Unavailable BROWN, GALINDO RINCON Primary Care Unavailable BILLIE JOSEPH Attending Unavailable Steven KENDRICK Admitting Unavailable BARBARA MEJIA Attending Unavailab YAYA Ziegler Attending Unavail able YAYA HOWARD Referring Unavail able Brenda LOVE, Dr. Medley Attending Provider Dr. Freedom Collier MD Attending Provider Dr. Noe Wright DO Attending Provider Dr. Noe Wright DO Other Provider [phone] Galindo Gutierrez Primary Care Unavailable Allyson Barkley Attending Unavailable Galindo Gutierrez Referring Unavailable Brenda, Galindo Primary Care Unavailable Noe Wright Consulting Unavailable FriendNoe Attending Unavailable Brenda, Galindo Referring Unavailable Brenda, Galindo Primary Care Unavailable Freedom Collier Attending Unavailabl e Brenda, Galindo Primary Care Unavailable Filippo, Allyson Attending Unavailable Brown, Galindo Referring Unavailable Barkley, Allyson Attending Unavailable Brown, Galindo Primary Care Unavailable Brown, Galindo Referring Unavailable Brown, Galindo Primary Care Unavailable FriendNoe Attending Unavailable Brown, Galindo Referring Unavailable Barkley, Allyson Referring Unavailable Brown, Galindo Primary Care Unavailable BarkleyFadiaAllyson Attending Unavailable Barkley, Allyson Referring Unavailable Brown, Galindo Primary Care Unavailable Allyson Barkley Attending Unavailable Galindo Gutierrez Primary Care Unavailable Galindo Gutierrez Attending Unavailable Galindo Gutierrez Referring Unavailable Toribio Salvador Attending Unavailable Galindo Gutierrez Primary Care Unavailable Allergies Allergy Classification Reported Allergen(s) Allergy Type Date of Onset Reaction(s) Facility (20 sources) Amoxicillin Drug Allergy 12-13-19 19 Nausea and Vomiting [facility] (20 sources) Nitrofurantoin Drug Allergy 10-26-20 11 DECREASED HEART RATE [facility] (20 sources) Sulfonamides (Antibiotic) Propensity to adverse reactions to drug 02-07-20 14 [facility] (1 source) Amoxicillin / Clavulanate Drug Allergy 10-30-19 14 [facility] (1 source) Morphine Drug Allergy 05-06-19 55 [facility] (1 source) Nitrofurantoin Drug Allergy 05-06-19 55 [facility] (1 source) oxyCODONE Drug Allergy 10-30-19 16 [facility] (3 sources) Sulfonamides (Antibiotic); Translations: [SULFA (SULFONAMIDE ANTIBIOTICS)] Drug allergy (disorder) 05-06-19 55 [facility] (2 sources) Amoxicillin Drug Allergy [facility] (2 sources) Codeine Drug Allergy [facility] (2 sources) Nitrofurantoin Drug Allergy [facility] (4 sources) Sulfamethoxazole; Translations: [SULFAMETHOXAZOLE] Drug Allergy 10-26-20 11 [facility] (2 sources) Sulfamethoxazole / Trimethoprim Drug Allergy [facility] (2 sources) Sulfonamides (Antibiotic) Drug allergy (disorder) [facility] (8 sources) NITROFURANTOIN, MACROCRYSTALS / Nitrofurantoin, Monohydrate; Translations: [NITROFURANTOIN MONOHYD/M-CRYST] Drug Allergy 10-26-20 11 Other: See Comments [facility] (6 sources) Sulfamethoxazole Drug Allergy 10-26-20 11 Rash [facility] (6 sources) Sulfonamides (Antibiotic) Drug Allergy 02-07-20 14 [facility] (6 sources) Clavulanate Drug Allergy 03-04-20 25 Other [facility] (6 sources) Codeine Drug Allergy 03-04-20 25 Itching [facility] (6 sources) Sulfonamides (Antibiotic) Allergy to substance 03-04-20 25 Hives AND RESP DISTRESS [facility] (1 source) Amoxicillin Drug Allergy 05-27-20 [facility] (1 source) Clavulanate Drug Allergy 05-27-20 [facility] (1 source) Codeine Drug Allergy 05-27-20 [facility] (1 source) Nitrofurantoin Drug Allergy 05-27-20 [facility] (1 source) Sulfonamides (Antibiotic) Drug allergy (disorder) 05-27-20 [facility] Medications Current Medications Medication Drug Class(es) Dates Sig (Normalized) Sig (Original) acetaminophen 325 mg oral tablet (20 sources) Start: 12-14-2018 take 2 tablets by mouth every four hours as needed acetaminophen 325 MG tablet Take 2 tablets by mouth every 4 hours as needed for Mild Pain. 50 tablet 1 12/14/2018 Active Start: 12-14-2018 take 1 tablet by margot th every six hours acetaminophen (TYLENOL) tablet 1,000 mg Albuterol (20 sources) beta2-Adrenergic Agonist Start: 07-29-2013 Albut guido Sulfate (Ventolin Hfa) 1 INHALER inhaler Active 1 NMA INHALATION DAILY July 29, 2013 12:00am Start: 10-26-2011 take 2 puff(s) by in halation four times daily as needed for wheezing albuterol 90 mcg/Actuation INHALATION Aero Inhale 2 Puffs as instructed four times daily as needed. FOR WHEEZING AND SHORTNESS OF BREATH. 0 10/26/2011 Active Start: 10-26-2011 albuterol 108 (90 Base) MCG/ACT Aero Soln inhaler Inhale 2 puffs. 0 10/26/2011 Active Start: 10-26-2011 albuterol 108 (90 Base) MCG/ACT Aero Soln inhaler Inhale 2 puffs. 0 10/26/2011 Active Start: 10-26-2011 albuterol 108 (90 Base) MCG/ACT Aero Soln inhaler Inhale 2 puffs. 0 10/26/2011 Active albuterol 0.833 mg/ml / ipratropium bromide 0.167 mg/ml inhalant solution (1 source) Anticholinergic, beta2-Adrenergic Agonist Start: 12-13-2018 take 3 mL by inhalation every four hours as needed ipratropium-albuterol (DUONEB) 0.5-2.5 (3) MG/3ML nebulizer solution 3 mL alendronic acid 5 mg oral tablet (8 sources) Bisphosphonate Start: 05-13-2025 take 7 mg by mouth once daily Alendronate 5 mg tablet Active 7 mg PO DAILY May 13, 2025 12:00am Start: 08-08-2024 End: 05-12-2025 take 1 tablet by mouth every week Alendronate 70 mg tablet Discontinued 70 mg PO EVERY WEEK August 08, 2024 12:00am May 12, 2025 8:44am ALPRAZolam 0.25 mg oral tablet (6 sources) Benzodiazepine Start: 08-08-2024 take 1 tablet by mouth three times daily as needed for anxiety Alprazolam 0.25 mg tablet Active 0.25 mg PO THREE TIMES A DAY as needed for anxiety August 08, 2024 12:00am amoxicillin 875 mg / clavulanate 125 mg oral tablet (1 source) Penicillin-class Antibacterial Start: 08-01-2024 End: 08-15-2024 take 1 tablet by mouth twice daily amoxicillin-clavul anate potassium (AUGMENTIN) 875-125 mg per tablet Take 1 tablet by mouth two times a day for 28 doses. 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 30 tablet 0 12/14/2018 Active bisacodyl 10 mg rectal suppository (1 source) Stimulant Laxative Start: 12-14-2018 bisacodyl (DULCOLAX) suppository 10 mg docusate sodium 100 mg oral capsule (20 sources) Start: 12-14-2018 take 1 capsule by mouth twice daily docusate 100 MG Cap capsule Take 1 capsule by mouth 2 times daily. 60 capsule 0 12/14/2018 Active docusate sodium 50 mg / sennosides, half-way 8.6 mg oral tablet (1 source) Start: 12-14-2018 senna-docusate (SENOKOT-S) 8.6-50 MG per tablet 2 tablet doxycycline hyclate 100 mg oral tablet (4 sources) Tetracycline-class Drug Start: 01-30-2019 End: 03-01-2019 take 1 tablet by mouth twice daily doxycycline hyclate 100 MG Tab Take 1 tablet by mouth 2 times daily. 60 tablet 1 01/30/2019 03/01/2019 Active ertapenem (INVANZ) 1 g in sodium chloride 0.9% (MB PLUS) 50 mL (total volume) IVPB (1 source) Start: 12-17-2018 ertapenem (INVANZ) 1 g in sodium chloride 0.9% (MB PLUS) 50 mL (total volume) IVPB ertapenem (INVANZ) in sodium chloride 0.9% (MB PLUS) 50 mL IVPB (20 sources) Start: 12-18-2018 take 1 g intravenous route every twenty-four hours ertapenem (INVANZ) in sodium chloride 0.9% (MB PLUS) 50 mL IVPB Indications: Osteomyelitis 1 g by Intravenous route every 24 hours. 42 Bag 0 12/18/2018 Active fluconazole 200 mg oral tablet (3 sources) Azole Antifungal Start: 05-12-2025 take 1 tablet by mouth once daily Fluconazole (Diflucan) 200 mg tablet Active 200 mg PO DAILY May 12, 2025 12:00am Start: 08-02-2024 End: 08-15-2024 fluconazole (DIFLUCAN) 200 m g tablet Take 2 tablets by mouth once daily for 13 doses. Patient should start on August 02, 2024. 26 tablet 08/02/2024 08/15/2024 Active folic acid 1 mg oral tablet (20 sources) Start: 10-26-2011 take 1 tablet by mouth once daily Folic Acid 1 MG tablet Active 1 mg PO DAILY@0800 July 29, 2013 12:00am gabapentin 800 mg oral tablet (20 sources) Anti-epileptic Agent Start: 07-28-2024 take 1 tablet by mouth three times daily Gabapentin 800 mg tablet Active 800 mg PO THREE TIMES A DAY July 28, 2024 12:00am Start: 12-16-2018 gabapentin (NE URONTIN) capsule 800 mg Start: 12-04-2017 gabapentin 800 MG Tab Start: 07-29-2013 End: 07-28-2024 take 1 capsule by mouth once daily Gabapentin 300 MG capsule Discontinued 300 mg PO DAILY July 29, 2013 12:00am July 28, 2024 4:13pm Start: 03-07-2013 GABAPENTIN 300 mg capsule twice daily. 03/07/2013 Active 1 ml HYDROmorphone hydrochloride 1 mg/ml cartridge (1 source) Opioid Agonist Start: 12-14-2018 take 0.5 mg intravenous route every two hours as needed HYDROmorphone (DILAUDID) injection 0.5 mg 24 hr isosorbide mononitrate 30 mg extended release oral tablet (6 sources) Nitrate Vasodilator Start: 07-28-2024 take 1 tablet by mouth once daily, then take 1 tablet by mouth every twenty-four hours Isosorbide Mononitrate 30 mg tablet extended release 24 hr Active 30 mg PO DAILY July 28, 2024 12:00am iv contrast (will be provided with radiology test) (8 sources) Start: 08-20-2024 End: 08-21-2024 iv contrast (will be provided with radiology test) MRI Liver Inject, intravenously, once for 1 dose. No IV access, insert saline lock prior to the beginning of sedation, infusion, injection of imaging exam. Discontinue saline lock post exam. If Pt. has a central line or IVAD, may access for administration according to line specific nursing protocol. Once exam is complete flush line and de-access according to line specific nursing protocol in the MR contrast administration guidelines link. 1 Each 08/20/2024 08/21/2024 Active Start: 08-20-2024 End: 08-21-2024 iv contrast (will be provide d with radiology test) CT LIVER W IVCON Inject, intravenously, once for 1 dose. No IV access, insert saline lock prior to the beginning of sedation, infusion, injection of imaging exam. Discontinue saline lock post exam. If Pt. has a central line or IVAD, may access for administration according to line specific nursing protocol. Once exam is complete flush line and de-access according to line specific nursing protocol in the CT contrast administration guidelines link. 1 Each 08/20/2024 08/21/2024 Active Start: 08-01-2024 iv contrast (w ill be provided with radiology test) CT PANCREAS W Inject, intravenously, once for 1 dose.No IV access, insert saline lock prior to the beginning of sedation, infusion, injection of imaging exam. Discontinue saline lock post exam. If Pt. has a central line or IVAD, may access for administration according to line specific nursing protocol. Once exam is complete flush line and de-access according to line specific nursing protocol in the CT contrast administration guidelines link. 1 Each 08/01/2024 Active Lactobacillus acidophilus (2 sources) Start: 05-13-2025 Lactobacillus Acidophilus (Acidophilus) capsule Active 2000 NMA PO DAILY May 13, 2025 12:00am levothyroxine sodium 0.175 mg oral tablet (20 sources) l-Thyroxi ne Start: 07-28-2024 take 1 tablet by mouth once daily Levothyroxine 175 mcg tablet Active 175 ug PO DAILY July 28, 2024 12:00am Start: 07-28-2024 Levothyroxine 175 mcg tablet Active ug PO July 28, 2024 12:00am Start: 12-25-2017 levothyroxine 125 MCG Tab tablet Start: 09-10-2013 End: 07-28-2024 take 1 tablet by mouth once daily Levothyroxine (Levoxyl) 100 MCG tablet Discontinued 100 ug PO DAILY 28 10September 10, 2013 1:00am July 28, 2024 4:13pm magnesium sulfate 0.0277 meq/ml / potassium sulfate 0.0374 meq/ml / sodium sulfate 0.257 meq/ml oral solution (6 sources) Start: 06-03-2014 Sodium,Potassium,&Mag Sulfates (SUPREP) 17.5-3.13-1.6 gram solr Take according to printed instructions given by office. 1 Bottle 0 06/03/2014 Active melatonin 5 mg oral tablet (6 sources) Start: 08-08-2024 take 1 tablet by mouth at bedtime as needed for sleep Melatonin 5 mg tablet Active 5 mg PO BEDTIME as needed for sleep August 08, 2024 12:00am methocarbamol 750 mg oral tablet (20 sources) Muscle Relaxant Start: 08-08-2024 Methocarbamol (Robaxin-750) 750 mg tablet Active 500 mg PO EVERY 6 HOURS as needed for Anxiety August 08, 2024 10:27am Start: 12-15-2018 methocarbamol (ROBAXIN) tablet 1,500 mg Start: 12-13-2018 End: 12-15-2018 take 500 mg by mouth twice daily as needed for muscle spasms 500 mg, Oral, 2 TIMES DAILY NEEDED, Starting Jayde 12/13/18 at 1924, Until 12/15/18 at 1143, Other, spasm Start: 10-26-2011 End: 08-08-2024 Methocarbamol (Robaxin-750) 750 MG tablet Discontinued 750 mg PO NEEDED as needed for Anxiety July 29, 2013 12:00am August 08, 2024 10:30am methotrexate 2.5 mg oral tablet (20 sources) Folate Analog Metabolic Inhibitor Start: 12-04-2017 methotrexate 2.5 MG Tab tablet Take 20 mg by mouth every 7 days. 0 12/04/2017 Active Start: 07-29-2013 End: 03-04-2025 take 4 tablets by mouth every week Methotrexate Sodium 2.5 MG tablet Discontinued 10 mg PO Q7D July 29, 2013 12:00am March 04, 2025 9:45am Start: 10-26-2011 take 1 tablet by margot th every week Methotrexate Sodium (METHOTREXATE, ANTI-RHEUMATIC,) 2.5 mg ORAL tablet Take 3 tablets by mouth once each week. 0 10/26/2011 Active metoclopramide 5 mg oral tablet (7 sources) Dopamine-2 Receptor Antagonist Start: 05-22-2025 take 2 tablets by mouth 30 minutes before mealtime Metoclopramide Hcl 5 mg tablet Active 10 mg PO before meals 180 30 0 May 22, 2025 7:40am June 20, 2025 12:00am administer 30 minutes before meals Start: 03-04-2025 End: 05-22-2025 take 1 tablet by mouth 30 minutes before mealtime Metoclopramide Hcl 5 mg tablet Discontinued 5 mg PO before meals 42 0 March 04, 2025 12:00am May 22, 2025 7:40am administer 30 minutes before meals montelukast 10 mg oral tablet (20 sources) Leukotriene Receptor Antagonist Start: 10-26-2011 take 1 tablet by mouth once daily Montelukast 10 MG tablet Active 10 mg PO DAILY July 29, 2013 12:00am ondansetron 4 mg disintegrating oral tablet (7 sources) Serotonin-3 Receptor Antagonist Start: 08-08-2024 take 1 tablet by mouth every six hours Ondansetron 4 mg tablet,disintegra ting Active 4 mg PO EVERY 6 HOURS August 08, 2024 12:00am Start: 12-14-2018 take 4 mg intravenou s route every four hours as needed ondansetron 4mg/2ml (ZOFRAN) injection 4 mg oxyCODONE hydrochloride 10 mg oral tablet (20 sources) Opioid Agonist Start: 07-28-2024 take 1 tablet by mouth every four hours as needed for pain Oxycodone 10 mg tablet Active 10 mg PO Q4H as needed for pain July 28, 2024 12:00am Start: 12-14-2018 End: 12-27-2018 take 1-2 tablets by mouth every four to six hours as needed for pain oxyCODONE 5 MG Tab tablet Indications: Acute postoperative pain of right knee Take 1-2 tabs po q 4-6 hours PRN pain. 60 tablet 0 12/19/2018 Active microencapsulated potassium chloride 20 meq extended release oral tablet (20 sources) Start: 07-28-2024 Potassium Chlo ride [Potassium Chloride 20 Meq Tablet,Extended Release(Part/Cryst)] (Potassium Chloride 20 Meq Tablet,Extended ) 20 mEq tablet,ER particles/crystals Active 20 meq PO DAILY July 28, 2024 12:00am Start: 12-14-2018 potassium chlo ride (K-DUR, KLOR-CON M20) tablet ER 40 mEq Start: 01-09-2018 potassium chlo ride 20 MEQ Tab CR tablet predniSONE 10 mg oral tablet (20 sources) Start: 05-13-2025 take 1 tablet by mouth once daily Prednisone 10 mg tablet Active 10 mg PO DAILY May 13, 2025 12:00am Start: 07-28-2024 End: 03-04-2025 Prednisone 10 mg tablet Disc ontinued mg PO July 28, 2024 12:00am March 04, 2025 9:45am Start: 12-04-2017 predniSONE 5 M G Tab tablet daily. 0 12/04/2017 Active 1000 ml sodium chloride 9 mg/ml injection (1 source) Start: 12-14-2018 sodium chlorid e 0.9% IV solution sodium phosphate, dibasic 35.5 mg/ml / sodium phosphate, monobasic 96.4 mg/ml enema (1 source) Start: 12-14-2018 sodium phospha te w/sodium biphosphate (FLEETS) enema 1 enema sucralfate 100 mg/ml oral suspension (8 sources) Aluminum Complex Start: 08-08-2024 take 1 mL by mouth at bedtime Sucralfate (Carafate) 100 mg/mL suspension Active 10 mL PO before meals and at bedtime August 08, 2024 12:00am Start: 08-01-2024 End: 08-31-2024 take 10 mL by mouth four times daily sucralfate (CARAFATE) 100 mg/mL suspension Take 10 mL by mouth four times daily. 1200 mL 08/01/2024 08/31/2024 Active therapeutic multivitamin-minerals Tab (20 sources) Start: 12-14-2018 take 1 tablet by mouth once daily therapeutic multivitamin-minerals Tab Take 1 tablet by mouth daily. 30 tablet 0 12/14/2018 Active Tiotropium Harris (Spiriva With Handihaler) 1 PUFF inhaler (2 sources) Start: 07-29-2013 take 1 puff(s) by inhalation once daily Tiotropium Harris (Spiriva With Handihaler) 1 PUFF inhaler Active 1 NMA INHALATION DAILY July 29, 2013 12:00am tofacitinib 5 mg oral tablet (6 sources) take 1 tablet by mouth twice daily tofacitinib (XELJANZ) 5 mg tab Take by mouth twice daily. Active Completed/Discontinued Medications Medication Drug Class(es) Dates Sig (Normalized) Sig (Original) acetaminophen 325 mg / oxyCODONE hydrochloride 5 mg oral tablet (11 sources) Opioid Agonist Start: 12-13-2018 End: 12-17-2018 take 1 tablet by mouth every six hours as needed 1 tablet, Oral, EVERY 6 HOURS NEEDED, Starting Jayde 12/13/18 at 1921, Until Mon12/14/18 at 1742, Moderate Pain, Severe Pain Maximum dose of acetaminophen is 4000 mg from all sources in 24 hours. Start: 09-10-2013 End: 03-04-2025 Oxycodone-Acetaminophen (Per cocet) 1 EACH tablet Discontinued 1 {tbl} PO EVERY 6 HOURS NEEDED as needed for Pain September 10, 2013 1:00am March 04, 2025 9:45am ampicillin 500 mg oral capsule (10 sources) Penicillin-class Antibacterial Start: 08-08-2024 End: 05-12-2025 take 1 capsule by mouth three times daily Ampicillin 500 mg capsule Discontinued 500 mg PO THREE TIMES A DAY August 08, 2024 12:00am May 12, 2025 8:45am Start: 08-14-2019 End: 09-13-2019 take 1 capsule by mouth twice daily ampicillin 500 MG Cap Take 1 capsule by mouth 2 times daily. 60 capsule 4 08/14/2019 09/13/2019 Active Start: 04-03-2019 End: 05-03-2019 take 1 capsule by mouth twice daily ampicillin 500 MG Cap Take 1 capsule by mouth 2 times daily. Maintenance therapy 60 capsule 3 04/03/2019 05/03/2019 Active atropine sulfate 0.025 mg / diphenoxylate hydrochloride 2.5 mg oral tablet (6 sources) Anticholinergic, Cholinergic Muscarinic Antagonist, Antidiarrheal Start: 08-23-2013 End: 03-04-2025 Diphenoxylate-Atropine 1 TABLET tablet Discontinued 1 {tbl} PO DAILY August 23, 2013 12:00am March 04, 2025 9:44am ciprofloxacin 250 mg oral tablet (4 sources) Quinolone Antimicrobial Start: 01-09-2018 End: 12-17-2018 ciprofloxacin 250 MG Tab 50 ml clindamycin 18 mg/ml injection (2 sources) Lincosamide Antibacterial Start: 12-14-2018 End: 12-15-2018 take 900 mg intravenous route every eight hours clindamycin (CLEOCIN) 900 mg in normal saline 50 ml premix IVPB Emblex (6 sources) Start: 07-29-2013 End: 03-04-2025 take 7.5 mg by mouth at bedtime Emblex Discontinued 7.5 mg PO AT BEDTIME July 29, 2013 12:00am March 04, 2025 9:44am 0.4 ml enoxaparin sodium 100 mg/ml prefilled syringe (9 sources) Low Molecular Weight Heparin Start: 12-14-2018 End: 12-17-2018 inject 0.4 mL by subcutaneous injection once daily enOXAParin 40 MG injection Inject 0.4 mL under the skin daily. Until INR>2 4 Syringe 0 12/14/2018 12/17/2018 Discontinued Start: 12-13-2018 End: 12-17-2018 enOXAParin (LOVENOX) injecti on 40 mg Start: 07-29-2013 End: 03-04-2025 Enoxaparin 100 MG syringe Di scontinued 100 mg SC Q12@0600,1800 July 29, 2013 12:00am March 04, 2025 9:44am 72 hr fentaNYL 0.05 mg/hr transdermal system (20 sources) Opioid Agonist Start: 12-13-2018 1 patch, Trans dermal, EVERY 72 HOURS, First dose on Jayde 12/13/18 at 2000, Until Discontinued To dispose, fold and flush down a commode with a witness. Start: 01-01-2018 fentaNYL 50 MC G/HR Patch 72 HR 50 mcg/hr patch Start: 07-29-2013 End: 03-04-2025 Fentanyl 25 MCG patch Discon tinued 25 ug TRANSDERM. Q72H July 29, 2013 12:00am March 04, 2025 9:44am fentaNYL (DURAGE SIC) 75 mcg/hr Apply 1 Patch as directed every 72 hours. Active 120 actuat fluticasone propionate 0.115 mg/actuat / salmeterol 0.021 mg/actuat metered dose inhaler (20 sources) Corticosteroid, beta2-Adrenergic Agonist Start: 12-13-2018 take 2 puff(s) by inhalation twice daily 2 puff, Inhalation, 2 TIMES DAILY, First dose on [place] 12/13/18 at 1930, Until Discontinued Start: 07-29-2013 take 1 puff(s) by in halation once daily Fluticasone Propion-Salmeterol (Advair Diskus) 1 PUFF inhaler Active 1 NMA INHALATION .qd July 29, 2013 12:00am Start: 07-29-2013 End: 05-12-2025 Advair 500/50 Mcg Diskus Dis continued 1 NMA INHALATION THREE TIMES A DAY July 29, 2013 12:00am May 12, 2025 8:45am Start: 07-29-2013 Advair 500/50 Mcg Diskus Active 1 NMA INHALATION THREE TIMES A DAY July 29, 2013 12:00am Start: 07-29-2013 take 1 puff(s) by in halation twice daily Fluticasone Propion-Salmeterol (Advair Diskus) 1 PUFF inhaler Active 1 NMA INHALATION TWICE A DAY July 29, 2013 12:00am Start: 10-26-2011 take 1 puff(s) by mo [facility] twice daily fluticasone-salmeterol (ADVAIR DISKUS) 100-50 mcg/dose INHALATION DsDv Inhale 1 Puff as instructed twice daily. RINSE AND GARGLE MOUTH WITH WATER AFTER EACH USE. 0 10/26/2011 Active Start: 10-26-2011 fluticasone-sa lmeterol (ADVAIR DISKUS) 100-50 MCG/DOSE Aerosol Powder, breath activated inhaler Inhale 1 puff. 0 10/26/2011 Active fosfomycin 3000 mg powder for oral solution (6 sources) Start: 08-08-2024 End: 03-04-2025 take 3 g by mouth once Fosfomycin Tromethamine 3 gram packet Discontinued 3 g PO ONCE August 08, 2024 12:00am March 04, 2025 9:44am hydrocortisone 100 mg injection (1 source) Corticosteroid Start: 12-14-2018 End: 12-15-2018 take 25 mg intravenous route every eight hours hydrocortisone sodium succinate PF (SOLU-CORTEF) injection 25 mg hydroxychloroquine sulfate 200 mg oral tablet (20 sources) Antimalarial, Antirheumatic Agent Start: 07-29-2013 End: 03-04-2025 take 1 tablet by mouth twice daily at mealtime Hydroxychloroquine 200 MG tablet Discontinued 200 mg PO TWICE DAILY WITH MEALS July 29, 2013 12:00am March 04, 2025 9:44am Start: 10-26-2011 hydroxychloroq uine (PLAQUENIL) 200 mg ORAL tablet Take by mouth once daily. 0 10/26/2011 Active 1 ml ketorolac tromethamine 15 mg/ml cartridge (1 source) Nonsteroidal Anti-inflammatory Drug, Cyclooxygenase Inhibitor Start: 12-14-2018 End: 12-17-2018 take 15 mg intravenous route every six hours ketorolac (TORADOL) injection 15 mg loperamide hydrochloride 2 mg oral capsule (1 source) Opioid Agonist Start: 12-16-2018 End: 12-16-2018 loperamide (IMODIUM) capsule 2 mg Start: 12-16-2018 End: 12-16-2018 loperamide (IMODIUM) capsule 2 mg 50 ml magnesium sulfate 40 mg/ml injection (1 source) Start: 12-13-2018 2 g, Intraveno us, DAILY NEEDED, Starting [facility] 12/13/18 at 1925, Until Discontinued, for mag less 2.0 Infuse at a rate of 0.5 gm/hour. meropenem (MERREM) 0.5 g in sodium chloride 0.9%, with overfill 70 mL (total volume) IVPB (1 source) Start: 12-13-2018 End: 12-17-2018 0.5 g (500 mg), Intravenous, at 140 mL/hr, Administer over 30 Minutes, EVERY 8 HOURS, First dose on [place] 12/13/18 at 2200, Until Discontinued metoprolol tartrate 25 mg oral tablet (6 sources) beta-Adrenergic Ca Start: 08-08-2024 End: 03-04-2025 Metoprolol Tartrate 25 mg tablet Discontinued 12.5 mg PO daily August 08, 2024 12:00am March 04, 2025 9:45am Multivitamin With Folic Acid (Thera) 1 TABLET tablet (6 sources) Start: 07-29-2013 End: 05-12-2025 take 1 tablet by mouth once daily Multivitamin With Folic Acid (Thera) 1 TABLET tablet Discontinued 1 {tbl} PO DAILY July 29, 2013 12:00am May 12, 2025 8:48am Start: 07-29-2013 take 1 tablet by [facility] once daily Multivitamin With Folic Acid (Thera) 1 TABLET tablet Active 1 {tbl} PO DAILY July 29, 2013 12:00am nystatin 235040 unt/ml oral suspension (4 sources) Polyene Antifungal Start: 11-15-2017 End: 12-17-2018 nystatin 301174 UNIT/ML oral suspension omeprazole 40 mg delayed release oral capsule (20 sources) Proton Pump Inhibitor Start: 07-29-2013 End: 08-08-2024 take 1 capsule by mouth once daily Omeprazole 40 mg capsule,delayed release(DR/EC) Discontinued 40 mg PO DAILY July 28, 2024 12:00am August 08, 2024 10:14am Start: 10-26-2011 take 1 capsule by mo [facility] once daily omeprazole (PRILOSEC) 20 mg ORAL capsule Take 1 capsule by mouth once daily. 0 10/26/2011 Active pantoprazole 40 mg delayed release oral tablet (1 source) Proton Pump Inhibitor Start: 12-13-2018 take 40 mg by mouth once daily 40 mg, Oral, DAILY, First dose on [facility] 12/13/18 at 2000, Until Discontinued, Indications: GERD sertraline 100 mg oral tablet (12 sources) Serotonin Reuptake Inhibitor Start: 07-29-2013 End: 03-04-2025 Sertraline 100 MG tablet Discontinued 150 mg PO DAILY July 29, 2013 12:00am March 04, 2025 9:45am Start: 10-26-2011 take 1 tablet by margot th three times daily sertraline (ZOLOFT) 50 mg ORAL tablet Take 1 tablet by mouth three times daily. 0 10/26/2011 Active tiotropium 0.018 mg inhalant powder (20 sources) Anticholinergic Start: 11-23-2017 SPIRIVA HANDIH ALER 18 MCG inhalation capsule Start: 07-29-2013 take 1 puff(s) by in halation once daily Tiotropium Harris (Spiriva With Handihaler) 1 PUFF inhaler Active 1 NMA INHALATION DAILY July 29, 2013 12:00am Start: 10-26-2011 take 1 capsule by in halation once daily tiotropium 18 mcg INHALATION inhalation capsule Inhale 1 capsule as instructed once daily. 0 10/26/2011 Active tranexamic acid 650 mg oral tablet (1 source) Antifibrinolytic Agent Start: 12-14-2018 End: 12-14-2018 tranexamic acid (LYSTEDA) tablet 1,950 mg 200 ml vancomycin 5 mg/ml injection (2 sources) Glycopeptide Antibacterial Start: 12-14-2018 End: 12-15-2018 vancomycin (VANCOCIN) 1,000 mg in dextrose 200 ml premix IVPB warfarin sodium 2.5 mg oral tablet (20 sources) Vitamin K Antagonist Start: 12-17-2018 End: 12-17-2018 warfarin (COUMADIN) tablet 2.5 mg Start: 12-16-2018 End: 12-16-2018 warfarin (COUMADIN) tablet 2 .5 mg Start: 12-15-2018 End: 12-15-2018 warfarin (COUMADIN) tablet 5 mg Start: 07-29-2013 take 1 tablet by margot th every other day Warfarin (Jantoven) 5 MG tablet Active 5 mg PO EVERY OTHER DAY July 29, 2013 12:00am Start: 10-26-2011 take 1 tablet by margot th every other day Warfarin (Jantoven) 2.5 MG tablet Active 2.5 mg PO EVERY OTHER DAY July 29, 2013 12:00am Start: 10-26-2011 End: 12-14-2018 take 1 tablet by mouth two times weekly warfarin (COUMADIN) 5 mg ORAL tablet Take 1 tablet by mouth. Twice per week 0 10/26/2011 Active zolpidem tartrate 5 mg oral tablet (20 sources) gamma-Aminobutyric Acid-ergic Agonist Start: 12-13-2018 take 10 mg by mouth once daily at bedtime as needed 10 mg, Oral, DAILY AT BEDTIME NEEDED, Starting [facility] 12/13/18 at 1922, Until Discontinued, Sleep Start: 10-26-2011 End: 03-04-2025 take 1 tablet by mouth at bedtime as needed Zolpidem (Ambien) 10 MG tablet Discontinued 10 mg PO AT BEDTIME NEEDED July 29, 2013 12:00am March 04, 2025 9:45am Start: 10-26-2011 take 5 mg by mouth at bedtime zolpidem 10 MG Tab tablet Take 5 mg by mouth at bedtime. 0 10/26/2011 Active Problems Active Problems Problem Classification Problem Date Documented Da te Episodic/Chronic Abdominal pain (8 sources) Abdominal pain; Translations: [Unspecified abdominal pain] Onset: 07-31-2024 07-31-2024 Episodic Anxiety disorders (6 sources) Anxiety; Translations: [Anxiety disorder, unspecified] 08-08-2024 Chronic Comment on above: ON MED Asthma (6 sources) Asthma; Translations: [Unspecified asthma, uncomplicated] 08-08-2024 Chronic Cardiac dysrhythmias (1 source) Atrial fibrillation; Translations: [AF (atrial fibrillation)] Chronic Chronic kidney disease (6 sources) Chronic kidney disease stage 3; Translations: [Stage 3 chronic kidney disease] 08-08-2024 Chronic Chronic obstructive pulmonary disease and bronchiectasis (6 sources) Chronic obstructive lung disease; Translations: [Chronic obstructive pulmonary disease, unspecified] 08-08-2024 Chronic Coagulation and hemorrhagic disorders (1 source) Activated protein C resistance; Translations: [ACTIVATED PROTEIN C RESISTANCE] Onset: 09-29-2023 Chronic Complication of device; implant or graft (2 sources) Infection AND/OR inflammatory reaction due to internal prosthetic device, implant AND/OR graft; Translations: [Infection and inflammatory reaction due to nervous system device, implant, and graft, initial encounter] Episodic Esophageal disorders (7 sources) Gastro-esophageal reflux disease without esophagitis; Translations: [Gastroesophageal reflux disease without esophagitis] Onset: 09-29-2023 08-08-2024 Chronic Essential hypertension (1 source) Essential (primary) hypertension; Translations: [ESSENTIAL PRIMARY HYPERTENSION] Onset: 09-29-2023 Chronic Fluid and electrolyte disorders (20 sources) Hypokalemia; Translations: [Hypokalemia] Onset: 12-14-2018 12-14-2018 Episodic Gastroduodenal ulcer (except hemorrhage) (13 sources) Perforation of stomach; Translations: [Chronic or unspecified gastric ulcer with perforation] Onset: 07-30-2024 07-30-2024 Chronic Nausea and vomiting (20 sources) Vomiting; Translations: [Vomiting, unspecified] Onset: 07-28-2024 07-28-2024 Episodic Nutritional deficiencies (6 sources) Deficiency of macronutrients; Translations: [Unspecified severe protein-calorie malnutrition] Onset: 07-30-2024 07-30-2024 Chronic Osteoarthritis (12 sources) Degenerative joint disease involving multiple joints; Translations: [Primary generalized (osteo)arthritis] Onset: 07-30-2024 07-30-2024 Chronic Osteoporosis (6 sources) Osteoporosis; Translations: [Age-related osteoporosis without current pathological fracture] 08-08-2024 Chronic Other aftercare (1 source) group home (current) use of anticoagulants; Translations: [RESIDENTIAL CURRNT USE ANTICOAGULANTS] Onset: 09-29-2023 Episodic Other circulatory disease (6 sources) Low blood pressure; Translations: [Hypotension, unspecified] 08-05-2024 Episodic Other connective tissue disease (1 source) History of total knee arthroplasty; Translations: [History of total knee arthroplasty, right] Chronic Other connective tissue disease (1 source) History of right total knee replacement; Translations: [Presence of right artificial knee joint] Chronic Other connective tissue disease (2 sources) Presence of right artificial knee joint; Translations: [Presence of right artificial knee joint] Onset: 12-21-2022 Chronic Other connective tissue disease (20 sources) Fibromyalgia; Translations: [Fibromyalgia] Onset: 12-14-2018 12-14-2018 Episodic Other gastrointestinal disorders (1 source) Diarrhea of presumed infectious origin; Translations: [Diarrhea, unspecified] 08-20-2024 Episodic Other gastrointestinal disorders (6 sources) Dysphagia; Translations: [Dysphagia, unspecified] 08-08-2024 Episodic Other liver diseases (4 sources) Lesion of liver; Translations: [Liver disease, unspecified] 08-20-2024 Chronic Other liver diseases (2 sources) Liver disease, unspecified; Translations: [Liver lesion] Onset: 08-20-2024 Chronic Other lower respiratory disease (1 source) Other forms of dyspnea; Translations: [Other forms of dyspnea] Onset: 04-10-2025 Episodic Other nervous system disorders (1 source) Other chronic pain; Translations: [OTHER CHRONIC PAIN] Onset: 09-29-2023 Chronic Other non-traumatic joint disorders (2 sources) Knee pain; Translations: [Acute postoperative pain of right knee] Episodic Other non-traumatic joint disorders (1 source) Joint pain; Translations: [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 joint, initial encounter] Episodic Other non-traumatic joint disorders (1 source) Pain in unspecified joint; Translations: [PAIN IN UNSPECIFIED JOINT] Onset: 09-29-2023 Episodic Other nutritional; endocrine; and metabolic disorders (20 sources) Obesity, unspecified; Translations: [Obese class I] Onset: 12-13-2018 12-13-2018 Chronic Other nutritional; endocrine; and metabolic disorders (6 sources) Body mass index 30+ - obesity; Translations: [Obesity, unspecified] Onset: 07-29-2024 07-29-2024 Chronic Other nutritional; endocrine; and metabolic disorders (10 sources) Obese class I; Translations: [Obesity (BMI 30.0-34.9)] Onset: 12-13-2018 12-13-2018 Pancreatic disorders (not diabetes) (20 sources) Acute pancreatitis; Translations: [Acute pancreatitis without necrosis or infection, unspecified] Onset: 07-30-2024 08-01-2024 Episodic Peripheral and visceral atherosclerosis (1 source) Peripheral vascular disease, unspecified; Translations: [PERIPHERAL VASCULAR DISEASE UNS] Onset: 09-29-2023 Chronic Peritonitis and intestinal abscess (6 sources) Abdominal abscess; Translations: [Peritoneal abscess] 08-05-2024 Episodic Phlebitis; thrombophlebitis and thromboembolism (20 sources) H/O: Deep vein thrombosis; Translations: [Personal history of other venous thrombosis and embolism] Onset: 12-14-2018 12-14-2018 Episodic Poisoning by other medications and drugs (1 source) Poisoning by other opioids, accidental (unintentional), initial encounter; Translations: [POISON OTH OPIOIDS ACC INITIAL ENC] Onset: 09-29-2023 Episodic Residual codes; unclassified (1 source) Idiopathic sleep related nonobstructive alveolar hypoventilation; Translations: [IDIO SLEEP NONOBST ALVEOL HYPOVENT] Onset: 09-29-2023 Chronic Residual codes; unclassified (1 source) Restlessness and agitation; Translations: [RESTLESSNESS AND AGITATION] Onset: 09-29-2023 Chronic Residual codes; unclassified (2 sources) Altered mental status, unspecified; Translations: [ALTERED MENTAL STATUS UNSPECIFIED] Onset: 09-23-2023 Episodic Residual codes; unclassified (6 sources) Insomnia; Translations: [Insomnia, unspecified] 08-08-2024 Episodic Residual codes; unclassified (18 sources) Early satiety; Translations: [Early satiety] 03-04-2025 Episodic Residual codes; unclassified (6 sources) Altered mental status; Translations: [Altered mental status, unspecified] 08-08-2024 Episodic Residual codes; unclassified (1 source) Early satiety; Translations: [Early satiety] Onset: 06-09-2025 Episodic Rheumatoid arthritis and related disease (20 sources) Rheumatoid arthritis; Translations: [Rheumatoid arthritis, unspecified] Onset: 12-14-2018 12-14-2018 Chronic Skin and subcutaneous tissue infections (1 source) Cellulitis of right lower limb; Translations: [Cellulitis of right lower extremity] Spondylosis; intervertebral disc disorders; other back problems (1 source) Other spondylosis with radiculopathy, lumbar region; Translations: [OT SPONDYLS RADICULOPATHY LUMB RGN] Onset: 09-29-2023 Chronic Substance-related disorders (7 sources) Nicotine dependence, cigarettes, uncomplicated; Translations: [Nicotine dependence] Onset: 09-29-2023 08-01-2024 Chronic Thyroid disorders (7 sources) Hypothyroidism, unspecified; Translations: [Thyroid nodule] Onset: 11-08-2011 11-08-2011 Chronic Unclassified (1 source) Warfarin therapy started; Translations: [Prophylactic use of warfarin for venous thromboembolism] Unclassified (3 sources) History of revision of right total knee arthroplasty; Translations: [History of revision of total replacement of right knee joint] Unclassified (1 source) OTHER TOXIC ENCEPHALOPATHY; Translations: [OTHER TOXIC ENCEPHALOPATHY] Onset: 09-29-2023 Past or Other Problems Problem Classification Problem Date Documented Da te Episodic/Chronic Gastroduodenal ulcer (except hemorrhage) (6 sources) Acute gastric ulcer with perforation AND obstruction; Translations: [Acute gastric ulcer with perforation] Onset: 07-29-2024 07-29-2024 Episodic Infective arthritis and osteomyelitis (except that caused by tuberculosis or sexually transmitted disease) (20 sources) Pyogenic arthritis, unspecified; Translations: [Infectious disorder of joint] Onset: 12-14-2018 12-14-2018 Episodic Other aftercare (6 sources) Long-term current use of anticoagulant; Translations: [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] Onset: 07-29-2024 07-29-2024 Episodic Other gastrointestinal disorders (1 source) Diarrhea, unspecified; Translations: [Diarrhea of presumed infectious origin] Onset: 08-20-2024 Episodic Skin and subcutaneous tissue infections (20 sources) Cellulitis; Translations: [Cellulitis of skin with lymphangitis] Onset: 12-14-2018 12-14-2018 Episodic Substance-related disorders (6 sources) Continuous opioid dependence; Translations: [Opioid use, unspecified, uncomplicated] Onset: 07-30-2024 07-30-2024 Episodic Results Test Name Value Interpretation Reference Range Facility Gastroenterology Visit Repor ton 05-27-2025 Gastroenterology Visit Report [facility] [address] [place] [address] OFFICE VISIT Date of Service: 05/27/25 MR#: [id number] Acct: [id number] Name: FABBYAMNA Pond Rep #: [id number] : 1955 Provider: MAGI henning Age/Sex: 70/F Location: [facility] [place] Status: Signed Intake Vital Signs 05/13/25 11:08 Height 5 ft 4 in Intake Visit Reasons: Medication Questions Allergies Sulfa (Sulfonamide Antibiotics) Allergy (Verified 05/27/25 09:41) Hives AND RESP DISTRESS amoxicillin (From Augmentin) Adverse Reaction (Verified 05/27/25 09:41) Other clavulanic acid (From Augmentin) Adverse Reaction (Verified 05/27/25 09:41) Other codeine Adverse Reaction (Verified 05/27/25 09:41) Itching nitrofurantoin (Nitrofurantoin) Adverse Reaction (Verified 05/27/25 09:41) DECREASED HEART RATE Medications ???Medication ???Instructions ???Recorded ???Confirmed ???Type albuterol sulfate 90 mcg/actuation 1 puff inhalation DAILY 07/29/13 05/27/25 History aerosol inhaler (Ventolin HFA) fluticasone 500 mcg-salmeterol 50 1 puff inhalation .qd 07/29/13 History mcg/dose blistr powdr for inhalation (Advair Diskus) folic acid 1 mg tablet 1 mg PO DAILY@0800 07/29/13 History montelukast 10 mg tablet 10 mg PO DAILY 07/29/13 05/27/25 H istory tiotropium bromide 18 mcg capsule 1 puff inhalation DAILY 07/29/13 05/27/25 History with inhalation device (Spiriva with HandiHaler) warfarin 2.5 mg tablet (Jantoven) 2.5 mg PO QODAY 07/29/13 05/27/25 History warfarin 5 mg tablet (Jantoven) 5 mg PO QODAY 07/29/13 05/27/25 Hi story gabapentin 800 mg tablet 800 mg PO TID 07/28/24 05/27/25 Hi story isosorbide mononitrate 30 mg 30 mg PO DAILY 07/28/24 05/27/25 H istory tablet,extended release 24 hr levothyroxine 175 mcg tablet 175 mcg PO DAILY 07/28/24 05/27/25 History oxycodone 10 mg tablet 10 mg PO Q4H PRN pain 07/28/24 History potassium chloride 20 mEq 20 meq PO DAILY 07/28/24 05/27/25 History tablet,extended release(part/cryst) (Klor-Con M) alprazolam 0.25 mg tablet 0.25 mg PO TID PRN anxiety 4 05/27/25 History melatonin 5 mg tablet 5 mg PO HS PRN sleep 08/08/2404/30 History methocarbamol 750 mg tablet 500 mg PO Q6H PRN Anxiety 08/08/24 05/27/25 History (Robaxin-750) omeprazole 40 mg capsule,delayed 40 mg PO QDAY 08/08/24 05/27/25 Hi story release ondansetron 4 mg disintegrating 4 mg PO Q6H 08/08/24 05/27/25 Hist ory tablet sucralfate 100 mg/mL oral 10 ml PO QACHS 08/08/24 05/27/25 H istory suspension (Carafate) Lactobacillus acidophilus 2,000 mmu cells PO DAILY 05/13/25 05/27/25 History (Acidophilus capsule) alendronate 5 mg tablet 7 mg PO DAILY 05/13/25 05/27/25 Hi story prednisone 10 mg tablet 10 mg PO DAILY 05/13/25 05/27/25 H istory erythromycin 250 mg tablet 250 mg PO QAC 3 weeks #63 tabs 05/27/25 Rx famotidine 10 mg tablet 10 mg PO QAC 3 weeks #63 tabs 04/3005/27/25 Rx Have you fallen in the past year?: No PFSH Medical History History of stress test Wears hearing aid Wears dentures Wears glasses Thyroid disease Walker as ambulation aid Ambulates with cane Rheumatoid arthritis Low iron DVT (deep venous thrombosis) Restless legs Gastric reflux Smoker History of echocardiogram Cardiology follow-up encounter Hypertension Rheumatoid arthritis in remission Pancreatic pseudocyst Severe protein-calorie malnutrition Perforated gastric ulcer Chronic kidney disease, stage 3 COPD (chronic obstructive pulmonary disease) Anxiety Epistaxis Chronic anticoagulation Altered mental status History of DVT (deep vein thrombosis) Asthma Fibromyalgia Anemia Osteoporosis GERD without esophagitis Insomnia Dysphagia Osteoarthritis Surgical History History of cardiac catheterization History of tonsillectomy History of thyroidectomy History of right hip replacement History of total right knee replacement History of hysterectomy History of carpal tunnel surgery of right wrist Family History Sister Breast cancer Diabetes Brother Liver cancer Diabetes Father Diabetes CVA (cerebral vascular accident) Social History Smoking Status: Current every day smoker tobacco type: cigarettes alcohol intake: never HPI HPI Details: AMNA SEQUEIRA, is a 70 F who presents to the office today for FU. 5.20.25 OV FU after establishment with [facility] for recurrent nausea and abdominal pain before eating. She just had a pancreatic pseudocyst in June 2024 for which she had bee (more content not included)... Normal [facility] CBC (INCLUDES DIFF/PLT)on Basophils (Bld) [#/Vol] 0.024 10*3/uL Normal 0-200 [facility] Comment on above: Performed By: #### 1 023, 63, 7600 #### [facility] of [place] [address] [address] Box Tender: Braulio Roach MD Basophils/100 WBC (Bld) 0.2 % Normal [facility] Comment on above: Performed By: #### 1 023, 63, 7600 #### [facility] [place] [address] [address] Tender: Braulio Roach MD Eosinophils (Bld) [#/Vol] 0.012 10*3/uL Low 15-500 [facility] Comment on above: Performed By: #### 1 023, 63, 0 #### [facility] [place] [address] [address] Tender: Braulio Roach MD Eosinophils/100 WBC (Bld) 0.1 % Normal [facility] Comment on above: Performed By: #### 1 230, 63, 7600 #### [facility] [place] [address] [address] Tender: Braulio Roach MD Erythrocyte distribution width (RBC) [Ratio] 20.5 % High 11.0-15.0 [facility] Comment on above: Performed By: #### 1 023, 63, 7600 #### [facility] [place] [address] [address] Tender: Braulio Roach MD Hematocrit (Bld) [Volume fraction] 34.7 % Low 35.0-45.0 [facility] Comment on above: Performed By: #### 1 023, 63, 7600 #### [facility] of [address], [address] [place] [address] [place] Box Tender: Braulio Roach MD Hemoglobin (Bld) [Mass/Vol] 9.2 g/dL Low 11.7-15.5 [facility] Comment on above: Performed By: #### 1 0231, 6399, 7600 #### [facility] of [address], [address] [place] [address] Gill Box Tender: Braulio Roach MD Lymphocytes (Bld) [#/Vol] 0.984 10*3/uL Normal 850-3900 [facility] Comment on above: Performed By: #### 1 0231, 63, 7600 #### [facility] [place] [address] [address] Tender: Braulio Roach MD Lymphocytes/100 WBC (Bld) 8.2 % Normal [facility] Comment on above: Performed By: #### 1 023, 63, 7600 #### [facility] of [address], [address] [place] [address] Gill Box Tender: Braulio Roach MD MCH (RBC) [Entitic mass] 19.5 pg Low 27.0-33.0 [facility] Comment on above: Performed By: #### 1 023, 6399, 7600 #### [facility] of [address], [address] [place] [address] Gill Box Tender: Braulio Roach MD MCHC (RBC) [Mass/Vol] 26.5 g/dL Low 32.0-36.[address] [facility] Comment on above: Result Comment: For adults, a slight decrease in the calculated MCHC value (in the range of 30 to 32 g/dL) is most likely not clinically significant; however, it should be interpreted with caution in correlation with other red cell parameters and the patient's clinical condition. Performed By: #### 1 0231, 6399, 7600 #### [facility] of [place] [address] [address] Tender: Braulio Roach MD MCV (RBC) [Entitic vol] 73.4 fL Low 80.0-100.0 [facility] Comment on above: Performed By: #### 1 0231, 63, 7600 #### [facility] [place] [address] [address] [employer] Tender: Braulio Roach MD Monocytes (Bld) [#/Vol] 0.432 10*3/uL Normal 200-950 [facility] Comment on above: Performed By: #### 1 0231, 63, 7600 #### [facility] [place] [address] [address] Tender: Braulio Roach MD Monocytes/100 WBC (Bld) 3.6 % Normal [facility] Comment on above: Performed By: #### 1 0231, 63, 7600 #### [facility] [place] [address] [address] [employer] Tender: Braulio Roach MD Neutrophils (Bld) [#/Vol] 10.548 10*3/uL High 8303-9391 [facility] Comment on above: Performed By: #### 1 0231, 63, 7600 #### [facility] of [place] [address] [address] Box Tender: Braulio Roach MD Neutrophils/100 WBC (Bld) 87.9 % Normal [facility] Comment on above: Performed By: #### 1 0231, 63, 7600 #### [facility] [place] [address] [place] [employer] Tender: Braulio Roach MD Platelet mean volume (Bld) [Entitic vol] 9.0 fL Normal 7.5-12.5 [facility] Comment on above: Performed By: #### 1 0231, 63, 7600 #### [facility] [place] [address] [place] Box Tender: Braulio Roach MD Platelets (Bld) [#/Vol] 460 10*3/uL High 140-400 [facility] Comment on above: Performed By: #### 1 0231, 63, 7600 #### [facility] [place] [address] [place] Box Tender: Braulio Roach MD RBC (Bld) [#/Vol] 4.73 10*6/uL Normal 3.80-5.10 [facility] Comment on above: Performed By: #### 1 0231, 6399, 7600 #### [facility] [place] [address] [place] [employer] Tender: Braulio Roach MD WBC (Bld) [#/Vol] 12.0 10*3/uL High 3.8-10.8 [facility] Comment on above: Performed By: #### 1 0231, 6399, 7600 #### [facility] [place] [address] [place] Box Tender: Braulio Roach MD [facility] 05-14-2025 Albumin [Mass/Vol] 3.9 g/dL Normal 3.6-5.1 [facility] Comment on above: Performed By: #### 1 023, 63, 7600 #### [facility] [place] [address] [place] Box Tender: Braulio Roach MD Albumin/Globulin [Mass ratio] 1.0 {ratio} Normal 1.0-2.5 [facility] Comment on above: Performed By: #### 1 0231, 63, 7600 #### [facility] [place] [address] [place] Box Tender: Braulio Roach MD ALP [Catalytic activity/Vol] 57 U/L Normal 37-153 [facility] Comment on above: Performed By: #### 1 0231, 6399, 7600 #### [facility] [place] [address] [place] Box Tender: Braulio Roach MD ALT [Catalytic activity/Vol] 7 U/L Normal 6-29 [facility] Comment on above: Performed By: #### 1 023, 6399, 7600 #### [facility] of [address], [address] [place] [address] Gill Box Tender: Braulio Roach MD AST [Catalytic activity/Vol] 8 U/L Low 10-35 [facility] Comment on above: Performed By: #### 1 0231, 6399, 7600 #### [facility] of [address], [address] [place] [address] Gill Box Tender: Braulio Roach MD Bilirubin [Mass/Vol] 0.2 mg/dL Normal 0.2-1.2 [facility] Comment on above: Performed By: #### 1 0231, 6399, 7600 #### [facility] [place] [address] [place] Box Tender: Braulio Roach MD BUN/CREATININE RATIO SEE NOTE: Normal 6-22 [facility] Comment on above: Result Comment: Not Reported: BUN and Creatinine are within reference range. Performed By: #### 1 0231, 63, 7600 #### [facility] of [address], [address] [place] [address] Gill Box Tender: Braulio Roach MD Calcium [Mass/Vol] 8.7 mg/dL Normal 8.6-10.4 [facility] Comment on above: Performed By: #### 1 0231, 6399, 7600 #### [facility] [place] [address] [place] Box Tender: Braulio Roach MD Chloride [Moles/Vol] 101 mmol/L Normal 98-110 [facility] Comment on above: Performed By: #### 1 0231, 6399, 7600 #### [facility] [place] [address] [place] Box Tender: Braulio Roach MD CO2 [Moles/Vol] 26 mmol/L Normal 20-32 [facility] Comment on above: Performed By: #### 1 0231, 6399, 7600 #### [facility] of [address] [place] [address] Gill Box Tender: Braulio Roach MD Creatinine [Mass/Vol] 0.80 mg/dL Normal 0.60-1.[address] [facility] Comment on above: Performed By: #### 1 023, 63, 7600 #### [facility] [address], [address] [place] [address] Gill Box Tender: Braulio oRach MD GFR/1.73 sq M.predicted among non-blacks MDRD (S/P/Bld) [Vol rate/Area] 79 mL/min/{1.73_m2} Normal > OR = 60 [facility] Comment on above: Performed By: #### 1 230, 63, 7600 #### [facility] [place] [address] [place] Box Tender: Braulio Roach MD Globulin (S) [Mass/Vol] 3.8 g/dL High 1.9-3.7 [facility] Comment on above: Performed By: #### 1 230, 63, 7600 #### [facility] [address], [address] [place] [address] Gill Box Tender: Braulio Roach MD Glucose [Mass/Vol] 166 mg/dL High 65-99 [facility] Comment on above: Result Comment: Fasting reference interval For someone without known diabetes, a glucose value >125 mg/dL indicates that they may have diabetes and this should be confirmed with a follow-up test. Performed By: #### 1 230, 63, 7600 #### [facility] [address], [address] [place] [address] Gill Box Tender: Braulio Roach MD Potassium [Moles/Vol] 4.5 mmol/L Normal 3.5-5.[address] [facility] Comment on above: Performed By: #### 1 023, 6332, 7600 #### [facility] [address], [address] [place] [address] Gill Box Tender: Braulio Roach MD Protein [Mass/Vol] 7.7 g/dL Normal 6.1-8.1 [facility] Comment on above: Performed By: #### 1 0231, 6399, 7600 #### [facility] [place] [address] Gill Box Tender: Braulio Roach MD Sodium [Moles/Vol] 137 mmol/L Normal 135-146 [facility] Comment on above: Performed By: #### 1 0231, 6399, 7600 #### [facility] [place] [address] Gill Box Tender: Braulio Roach MD Urea nitrogen [Mass/Vol] 12 mg/dL Normal 7-25 [facility] Comment on above: Performed By: #### 1 0231, 6399, 7600 #### [facility] [place] [address] Gill Box Tender: Braulio Roach MD LIPID PANEL, [address] Cholesterol [Mass/Vol] 198 mg/dL Normal <200 [facility] Comment on above: Performed By: #### 1 0231, 6399, 7600 #### [facility] [place] [address] Gill Box Tender: Braulio Roach MD Cholesterol in HDL [Mass/Vol] 59 mg/dL Normal > OR = 50 [facility] Comment on above: Performed By: #### 1 0231, 6399, 7600 #### [facility] [place] [address] Gill Box Tender: Braulio Roach MD Cholesterol in LDL [Mass/Vol] 106 mg/dL High [facility] Comment on above: Result Comment: Refe rence range: <100 Desirable range <100 mg/dL for primary prevention; <70 mg/dL for patients with CHD or diabetic patients with > or = 2 CHD risk factors. LDL-C is now calculated using the Radha calculation, which is a validated novel method providing better accuracy than the Friedewald equation in the estimation of LDL-C. Mitchell SS et al. KING. 2013;310(19): 2900-4648 (http://education.[facility].Miproto/faq/ZAX980) Performed By: #### 1 230, 68, 8070 #### [facility] [address], [address] [place] [address] Gill Box Tender: Braulio Roach MD Cholesterol.total/Chol esterol in HDL [Mass ratio] 3.4 {ratio} Normal <5.0 [facility] Comment on above: Performed By: #### 1 230, 55, 7950 #### [facility] [address], [address] [place] [address] Gill Box Tender: Braulio Roach MD NON HDL CHOLESTEROL 139 mg/dL (calc) High <130 [facility] Comment on above: Result Comment: For patients with diabetes plus 1 major ASCVD risk factor, treating to a non-HDL-C goal of <100 mg/dL (LDL-C of <70 mg/dL) is considered a therapeutic option. Performed By: #### 1 230, 76, 0800 #### [facility] [address], [address] [place] [address] Gill Box Tender: Braulio Roach MD Triglyceride [Mass/Vol] 212 mg/dL High <150 [facility] Comment on above: Result Comment: If a non-fasting specimen was collected, consider repeat triglyceride testing on a fasting specimen if clinically indicated. Vivek et al. J. of Clin. Lipidol. 2015;9:129-169. Performed By: #### 1 230, 42, 7380 #### [facility] [address], [address] [place] [address] Gill Box Tender: Braulio Roach MD TSHon 05-14-2025 TSH Qn 1.25 m[IU]/L Normal 0.40-4.50 [facility] Comment on above: Performed By: #### 1 230, 0796, 6670 #### [facility] [address], [address] [place] [address] Gill Box Tender: Braulio Roach MD EGD Reporton 05-13-2025 EGD Report [facility] Records Department [address] [place] [address] EGD Report MR#: [id number] Acct: [id number] Name: AMNA SEQUEIRA Rep #: [id number] : 1955 70 From: Noe Wright DO PCP: Dr. Galindo Gutierrez MD Status:[facility] Patient Name: Amna Sequeira Procedure Date: 05/13/2025 12:37 PM Date of : 1955 Age: 70 Procedure: Upper GI endoscopy Indications: Epigastric abdominal pain, Functional Dyspepsia, Dyspepsia, Indigestion, Failure to respond to medical treatment Providers: Noe Wright DO Referring MD: Galindo Gutierrez Medicines: Monitored Anesthesia Care Patient Profile: This is a 70 year old female. Refer to note in patient chart for documentation of history and physical. Patient has symptoms of chronic abdominal cramping, chronic abdominal distention, chronic right upper quadrant abdominal pain, chronic epigastric abdominal pain, chronic dyspepsia and chronic nausea. Complications: No immediate complications. Procedure: Pre-Anesthesia Assessment: - Prior to the procedure, a History and Physical was performed, and patient medications and allergies were reviewed. The risks and benefits of the procedure and the sedation options and risks were discussed with the patient. All questions were answered and informed consent was obtained. Patient identification and proposed procedure were verified by the physician in the pre-procedure area. Mental Status Examination: alert and oriented. Airway Examination: normal oropharyngeal airway and neck mobility. Respiratory Examination: clear to auscultation. CV Examination: normal. Prophylactic Antibiotics: The patient does not require prophylactic antibiotics. Prior Anticoagulants: The patient has taken no anticoagulant or antiplatelet agents except for NSAID medication. ASA Grade Assessment: II - A patient with mild systemic disease. After reviewing the risks and benefits, the patient was deemed in satisfactory condition to undergo the procedure. The anesthesia plan was to use monitored anesthesia care (MAC). Immediately prior to administration of medications, the patient was re-assessed for adequacy to receive sedatives. The heart rate, respiratory rate, oxygen saturations, blood pressure, adequacy of pulmonary ventilation, and response to care were monitored throughout the procedure. The physical status of the patient was re-assessed after the procedure. After obtaining informed consent, the endoscope was passed under direct vision. Throughout the procedure, the patient's blood pressure, pulse, and oxygen saturations were monitored continuously. The Endoscope was introduced through the mouth, and advanced to the fourth part of the duodenum. Small bowel enteroscopy was deemed necessary. The upper GI endoscopy was accomplished without difficulty. The patient tolerated the procedure well. Scope In: 12:44:05 PM Scope Out: 12:49:35 PM Total Procedure Duration Time 0 hours 5 minutes 30 seconds Findings: The examined esophagus was normal. Patchy mild inflammation characterized by erythema was found in the entire examined stomach. Biopsies were taken with a cold forceps for histology. Verification of patient identification for the specimen was done. Estimated blood loss was minimal. Biopsies were taken with a cold forceps for Helicobacter pylori testing. Verification of patient identification for the specimen was done. Estimated blood loss was minimal. Suspect gastroparesis due to absence of peristalsis and patient symptoms. Patchy mildly erythematous mucosa without active bleeding and with no stigmata of bleeding was found in the entire duodenum. Biopsies were taken with a cold forceps for histology. Verification of patient identification for the specimen was done. Estimated blood loss was minimal. Impression: - Normal esophagus. - Chronic gastritis. Biopsied. - Gastroparesis. - Erythematous duodenopathy. Biopsied. Recommendation: - Discharge patient to home. - Resume previous diet. - Continue present medications. - Await pathology results. Procedure Code(s): --- Professional --- 91216, Small intestinal endoscopy, enteroscopy beyond second portion of duodenum, not including ileum; with biopsy, single or multiple CPT copyright 2021 [employer]. All rights reserved. The codes documented in this report are preliminary and upon workers compensation coordinator review may be revised to meet current compliance requirements. Noe Wright DO 05/13/2025 12:58:49 PM This report has been signed electronically. Number of Addenda: 0 Note Initiated On: 05/13/2025 12:37 PM 05/13/25 1258 Date Noe Forbes Signature: Date (if indicated) CC: Dr. Galindo Morfin (more content not included)... [facility] normalized rat io (INR) calculationOrdered By: Noe Wright on 05-13-2025 INR Coag (Bld) [Relative time] 1.7 {INR} [facility] MR/POSTOP.ANEon 05-13-2025 MR/POSTOP.ANE [facility] Medical Records Department [address] [place] [address] Anesthesia Postop Eval I 05/13/25 1300 MR#: [id number] Acct: [id number] Name: AMNA SEQUEIRA Rep #: [id number] : 1955 70 From: Homero Alvarado PCP: Dr. Galindo Gutierrez MD Status:REG SDC Y Race: C Location: [place] [address] Anesthesia: Postop Eval I Current Vital Signs Temperature: 97.5 F Pulse Rate: 85 Blood Pressure: 106/60 Respiratory Rate: 18 Pulse Ox: 96 Oxygen Delivery Method: Nasal Cannula Oxygen Flow Rate (L/min): 2 Assessment Airway patent: Yes Spontaneous unlabored respirations: Yes Mental status: Awake nausea: No Vomiting: No Anesthesia Complication: No Fluid Hydration Crystalloid volume administer (ml): 300 Total IV fluid infused: 300 Progress Note Anesthesia document: Postop Eval 1 completed: Yes 05/13/25 1300 Date Homero Pittmanigniwona Signature: Date CC: Signed [facility] [id number] 05-13-2025 MR/POSTOPAN2 [facility] Medical Records Department [address] [place] [address] Anesthesia Postop Eval II 05/13/25 1913 MR#: [id number] Acct: [id number] Name: AMNA SEQUEIRA Rep #: [id number] : 1955 70 From: Doe Constantino MD PCP: Dr. Galindo Gutierrez MD Status:DEP [facility] [place] Race: C Location: EN Anesthesia Postop Eval I Sum Postop Eval Completion status Anesthesia document: Postop Eval 1 completed: Yes Anesthesia Postop Eval I Summary Anesthesia Postop Eval I Summary: Anesthesia Postop Eval I: Assessment Summary Airway patent Yes 05/13/25 13:00 [email or web address] Spontaneous unlabored Yes 05/13/25 13:00 [email or web address] respirations Mental status Awake 05/13/25 13:00 [email or web address] nausea No 05/13/25 13:00 [email or web address] Vomiting No 05/13/25 13:00 [email or web address] Anesthesia Postop Eval I: Fluid Summary Crystalloid volume administer 300 05/13/25 13:00 [email or web address] (ml) Colloids volume administered ( ml) Blood Product volume administered (ml) Total IV fluid infused 300 05/13/25 13:00 [email or web address] Anesthesia Postop Eval I: Summary Notes Anesthesia Complication No 05/13/25 13:00 [email or web address] Anesthesia Complication Comment: Post-operative progress note Anesthesia: Postop Eval II Evaluation Mental status: Awake and Calm Pain Level: 0 nausea: No Vomiting: No Complications Anesthesia Complication: No 05/13/251913 Date Doe Constantino MD Cosigner Signature: Date CC: Signed Normal [facility] Prothrombin Time w/INRon INR Coag (PPP) [Relative time] 1.7 {INR} Normal [facility] Comment on above: Performed By: #### L 141.5374 #### [facility] [address] [place], [place], [id number] PT Coag (PPP) [Time] 20.2 s High 11.7-14.9 [facility] Comment on above: Performed By: #### L 300.3900 #### [facility] [address] [place], [place], [id number] Prothrombin timeOrdered By: Noe Wright on 05-13-2025 PT Coag (PPP) [Time] 20.2 s High 11.7-14.9 [facility] Protime w/INR Fingerstickon 05-13-2025 INR Coag (PPP) [Relative time] 1.9 {INR} Normal [facility] Comment on above: Result Comment: Crit ical Value > 4.0 Performed By: #### L 9200.0000 ####[facility] [id number] [place], [address] Protime Coagsen 21.0 SEC High 11.7-14.9 [facility] Comment on above: Performed By: #### L 9200.0000 ####[facility] [address] [place], [address] Surgery Specimen Level Hilda 05-13-2025 Surgery Specimen Level IV Patient Age/Sex Location Account Attending Physician AMNA SEQUEIRA 70/F EN [id number] Noe Wright DO Specimen: [id number] Received: 05/13/25 Status: JENNIFER Copeland Num: [id number] Spec Type: EGD BIOPSY Subm Dr: Noe Wright DO HEADER OPERATION: EGD with biopsy PRE-OP DIAGNOSIS: Early satiety, nausea TISSUE SUBMITTED: A- Duodenum biopsy, B- Gastric body biopsy MICROSCOPIC DIAGNOSIS A. Small intestine, duodenum, biopsy: * Small bowel mucosa with no pathologic change * Detached pieces of gastric mucosa with mild chronic inflammation and reactive changes B. Gastric body, biopsy: * Oxyntic mucosa with mild chronic inflammation * No morphologic evidence of Helicobacter pylori organisms MICROSCOPIC DESCRIPTION Slides are reviewed. GROSS DESCRIPTION A. Received in fixative is one container labeled with the patient's name and designated Duodenum biopsy. The specimen consists of multiple irregular fragments of light ellison soft tissue that in aggregate measure 0.2 to 0.5 cm. The specimen is totally submitted in one cassette. B. Received in fixative is one container labeled with the patient's name and designated Gastric body biopsy. The specimen consists of one irregular fragment of light ellison soft tissue that measures 0.5 cm. The specimen is totally submitted in one cassette. Avtar 05/13/2025 CPT:01265b3 Patient Age/Sex Location Account Attending Physician AMNA SEQUEIRA 70/F EN [id number] Noe Wright, DO Signed (signature on file) Dr. Namrata Davila DO 05/20/25926 Normal [facility] Comment on above: Performed By: #### P BERNARD ####[facility] [id number] [place], [place], [id number] Whole blood prothrombin time Ordered By: Noe Wright on 05-13-2025 PT Coag (Bld) [Time] 21.0 s High 11.7-14.9 [facility] MR/PAT.SHELIAon 05-12-2025 MR/PAT.SHELIA [facility] Medical Records Department [address] [place] [address] PAT - Anesthesia 05/12/25 1325 MR#: [id number] Acct: [id number] Name: AMNA SEQUEIRA Rep #: [id number] : 1955 70 From: Tone Rashid MD PCP: Dr. Galindo Gutierrez MD Status:PRE SDC Y Race: C Location: EN Pre-Assessment Diagnosis/Proposed Procedure Planned Operative Procedure(s): EGD Anesthesia History Anesthesia History - cupola patcher: Anesthesia History - cupola patcher Hx Hospitalization No 05/12/25 08:53 Any Problems With Anesthesia No 05/12/25 08:53 Cholinesterase deficiency No 05/12/25 08:53 You/Your Family Experience No 05/12/25 08:53 fever (hyperthermia) with Relationship Recent Exposure to Contagious No 09/09/13 10:22 Disease Does patient have nerve No 05/12/25 08:53 stimulator Patient instructed to have device shut off --Does patient have Pacemaker or ICD? When Was Last Pacemaker Check QUESTION #4 FULL TEXT: You/Your Family Experience fever (hyperthermia) with Anesthesia Last Oral Intake Last Oral intake: Last Oral Intake NPO since Meds taken in AM with sips of water? Meds patient instructed to take am of surgery PONV PONV - cupola patcher: PONV - cupola patcher Female Yes 05/12/25 08:53 HX of Motion Sickness No 05/12/25 08:53 HX of N/V After Surgery No 05/12/25 08:53 Non-Smoker No 05/12/25 08:53 Duration of Surgery greater No 05/12/25 08:53 than 60 minutes Number of Risk Factors 1 05/12/25 08:53 PONV Score Low Risk 05/12/25 08:53 Height Weight Height Weight: Anesthesia: Height Weight Height 5 ft 5 in 07/28/24 15:55 Respiratory Assessment Respiratory Assessment - cupola patcher: Respiratory Tract Infection Hx - cupola patcher Hx Respiratory Tract Infection No 05/12/25 08:53 STOP Sleep Apnea STOP Sleep Apnea - cupola patcher: STOP Sleep Apnea - cupola patcher Hx Hypertension No 05/12/25 08:53 Hx Sleep Apnea No 05/12/25 08:53 CPAP No 09/09/13 12:36 BIPAP No 09/09/13 10:29 Do you snore loudly (louder Yes 05/12/25 08:53 than talking or can be heard Do you often feel tired/ Yes 05/12/25 08:53 fatigued/ sleepy during daytime? Has anyone observed you stop Yes 05/12/25 08:53 breathing during sleep? STOP Results Positive 05/12/25 08:53 QUESTION #5 FULL TEXT : Do you snore loudly (louder than talking or can be heard through closed doors)? Tobacco Use History Tobacco Use History - cupola patcher: Tobacco Use History - cupola patcher Tobacco Use Smoking Status Current every day smoker 05/12/25 08:53 Hx Tobacco Use No 05/12/25 08:53 Years Smoking Packs Smoked per Day Smoking Cessation Date was within the last 15 years Hx Smoking Cessation Date Hx Smoking Cessation Counseling Hematologic Medial History Hematologic Hx - cupola patcher: Hematologic Medical Hx - weaver narrow fabrics Hx of Blood Transfusion No 05/12/25 08:53 Hx of Transfusion in last 3 No 05/12/25 08:53 Months Date of Last Transfusion (if within last 3 months) Ever experience any problems No 05/12/25 08:53 with transfusion(s)? Specify any problems Hx of Preganancy in last 3 No 05/12/25 08:53 Months Nurse Filling Out Transfusion [facility] 05/12/25 08:53 Questions: Date: 05/12/25 05/12/25 08:53 Time: 09:06 05/12/25 08:53 Patient unable to answer at this time (ie. confused, unrespo /Reproduction History /Reproductive History - cupola patcher: /Reproductive Hx- cupola patcher Hx Now No 05/12/25 08:53 Gestational Age (in weeks): EDC: Hx Hx Para Hx Section SAB No 05/12/25 08:53 PFSH Medical History (Updated 05/12/25 @ 10:40 by Luly Fierro) History of stress test Wears hearing aid Wears dentures Wears glasses Thyroid disease Walker as ambulation aid Ambulates with cane Rheumatoid arthritis Low iron DVT (deep venous thrombosis) Restless legs Gastric reflux Smoker History of echocardiogram Cardiology follow-up encounter Hypertension Rheumatoid arthritis in remission Pancreatic pseudocyst Severe protein-calorie malnutrition Perforated gastric ulcer Chronic kidney disease, stage 3 COPD (chronic obstructive pulmonary disease) Anxiety Epistaxis Chronic anticoagulation Altered mental status History of DVT (deep vein thrombosis) Asthma Fibromyalgia Anemia Osteoporosis GERD without esophagitis Insomnia Dysphagia Osteoarthritis Home Medications ???Medication ???Instructions ???Recorded ???Last Taken ???Type albuterol sulfate 90 mcg/actuation 1 puff inhalation DAILY (more content not included)... Normal [facility] Echocardiogram study reportO rdered By: Freedom Collier on 04-06-2025 Study report [facility] [address] [place] [address] Echo Complete W/ Contrast 04/04/25 0859 MR#: [id number] Acct: [id number] Name: AMNA SEQUEIRA Rep #:[id number] : 1955 69 From: Freedom rios MD Attending Dr: Dr. Galindo Gutierrez MD S tatus: REG CLI Ordering Dr: Galindo Gutierrez MD Date: 04/23 Location: [facility] Sex: F C Admitted: Reason For Study Reason For Study: FATIGUE Procedure This was a 2D Doppler, Color Flow transthoracic echocardiogram. The study was technically difficult. Due to smoking history and body habitus. Contrast injection was performed. Exam performed in department. Left Ventricle Normal LV size. The estimated ejection fraction is 65 %. No evidence for diastolic dysfunction. No regional wall motion abnormalities noted. Right Ventricle Normal RV size. Normal systolic function. Atria The left and right atria are normal. No doppler evidence for ASD. Mitral Valve There is no mitral valve stenosis. No mitral valve insufficiency. Tricuspid Valve There is no tricuspid stenosis. Unable to estimate RV systolic pressure due to inadequate jet, pulmonary artery pressure probably normal. Aortic Valve Aortic sclerosis, no stenosis. No aortic valve insufficiency. Pulmonic Valve There is no pulmonic valvular stenosis. No pulmonic valve insufficiency. Great Vessels Normal sized aortic root. Pericardium/Pleural No pericardial effusion. Medication 22 gauge I.V. with prn adaptor inserted into right arm. Diluted definity 3.0ml given slow IV push to enhance endocardial definition. MMode/2D Measurements & Calculations LVIDd: 4.5 cm IVSd: 1.3 cm Ao root diam: 3.3 cm LVIDs: 2.9 cm LVPWd: 1.2 cm FS: 36.7 % LAV(MOD-bp): 53.6 ml LVAd ap4: 30.2 cm2 LVAd ap2: 26.9 cm2 LAV(MOD-bp) Indexed: 27.6 ml/m2 LVLd ap4: 7.7 cm LVLd ap2: 7.9 cm LAV(MOD-sp2): 56.1 ml EDV(MOD-sp4): 100.2 ml EDV(MOD-sp2): 76.0 ml LAV(MOD-sp4): 51.2 ml EDV(sp4-el): 100.7 ml EDV(sp2-el): 77.4 ml LVAs ap4: 14.7 cm2 LVAs ap2: 15.6 cm2 LVLs ap4: 6.8 cm LVLs ap2: 7.2 cm ESV(MOD-sp4): 27.1 ml ESV(MOD-sp2): 28.4 ml ESV(sp4-el): 27.0 ml ESV(sp2-el): 28.8 ml EF(MOD-sp4): 73.0 % EF(MOD-sp2): 62.5 % EF(sp4-el): 73.1 % SV(MOD-sp4): 73.1 ml SV(MOD-sp2): 47.5 ml SV(sp4-el): 73.7 ml SI(MOD-sp4): 37.6 ml/m2 SI(MOD-sp2): 24.4 ml/m2 LA A4 area: 18.6 cm2 LA dimension(2D): 4.6 cm RA A4 area: 17.3 cm2 TAPSE: 2.5 cm Time Measurements MV dec time: 0.17 sec Doppler Measurements & Calculations MV E max heather: 62.6 cm/sec Lat Peak E' Heather: 6.3 cm/sec Med Peak E' Heather: 8.5 cm/sec MV A max heather: 74.6 cm/sec E/E' lat: 9.9 E/E' med: 7.4 MV E/A: 0.84 MV V2 max: 75.0 cm/sec MV P1/2t max heather: 63.6 cm/sec Ao V2 max: 131.7 cm/sec MV max P.2 mmHg MV P1/2t: 62.6 msec Ao max P.9 mmHg MV V2 mean: 46.1 cm/sec MV dec slope: 297.7 cm/sec2 Ao V2 mean: 79.3 cm/sec MV mean P.95 mmHg MVA(P1/2t): 3.5 cm2 Ao mean P.9 mmHg MV V2 VTI: 14.7 cm Ao V2 VTI: 18.3 cm AV (velocity ratio): 0.78 LV V1 max: 98.6 cm/sec PA V2 max: 80.4 cm/sec TR max heather: 208.5 cm/sec LV V1 max P.9 mmHg PA V2 mean: 53.1 cm/sec TR max P.4 mmHg LV V1 mean P.6 mmHg PA V2 VTI: 12.9 cm LV V1 mean: 59.1 cm/sec LV V1 VTI: 14.3 cm ECHO/Echo Complete W/ Contrast Interpretation Summary The estimated ejection fraction is 65 %. No evidence for diastolic dysfunction. ___ Ordering Physician: Galinod Gutierrez Referring Physician: Galindo Gutierrez Performed By: Estefania Griffiths, RDCS, RVT 04/06/25 1648 Date _ Freedom Collier MD CC: Dr. Galindo Gutierrez MD ~ Date Dictated: 04/04/25858 Date Transcribed: 04/06/25 1648 Hand Slitter: Signed [facility] Work Phone: Echo Complete W/ Contraston 04-04-2025 Echo Complete W/ Contrast [facility] [place] [address] Echo Complete W/ Contrast 04/04/2559 MR#: [id number] Acct: [id number] Name: AMNA SEQUEIRA Rep #: [id number] : 1955 69 From: Freedom Collier MD Attending Dr: Dr. Galindo Gutierrez MD Status: REG Anali AVILA Ordering Dr: Galindo Gutierrez MD Date: 04/04/25 Location: [facility] Sex: F C Admitted: Reason For Study Reason For Study: FATIGUE Procedure This was a 2D Doppler, Color Flow transthoracic echocardiogram. The study was technically difficult. Due to smoking history and body habitus. Contrast injection was performed. Exam performed in department. Left Ventricle Normal LV size. The estimated ejection fraction is 65 %. No evidence for diastolic dysfunction. No regional wall motion abnormalities noted. Right Ventricle Normal RV size. Normal systolic function. Atria The left and right atria are normal. No doppler evidence for ASD. Mitral Valve There is no mitral valve stenosis. No mitral valve insufficiency. Tricuspid Valve There is no tricuspid stenosis. Unable to estimate RV systolic pressure due to inadequate jet, pulmonary artery pressure probably normal. Aortic Valve Aortic sclerosis, no stenosis. No aortic valve insufficiency. Pulmonic Valve There is no pulmonic valvular stenosis. No pulmonic valve insufficiency. Great Vessels Normal sized aortic root. Pericardium/Pleural No pericardial effusion. Medication 22 gauge I.V. with prn adaptor inserted into right arm. Diluted definity 3.0ml given slow IV push to enhance endocardial definition. MMode/2D Measurements Calculations LVIDd: 4.5 cm IVSd: 1.3 cm Ao root diam: 3.3 cm LVIDs: 2.9 cm LVPWd: 1.2 cm FS: 36.7 % LAV(MOD-bp): 53.6 ml LVAd ap4: 30.2 cm2 LVAd ap2: 26.9 cm2 LAV(MOD-bp) Indexed: 27.6 ml/m2 LVLd ap4: 7.7 cm LVLd ap2: 7.9 cm LAV(MOD-sp2): 56.1 ml EDV(MOD-sp4): 100.2 ml EDV(MOD-sp2): 76.0 ml LAV(MOD-sp4): 51.2 ml EDV(sp4-el): 100.7 ml EDV(sp2-el): 77.4 ml LVAs ap4: 14.7 cm2 LVAs ap2: 15.6 cm2 LVLs ap4: 6.8 cm LVLs ap2: 7.2 cm ESV(MOD-sp4): 27.1 ml ESV(MOD-sp2): 28.4 ml ESV(sp4-el): 27.0 ml ESV(sp2-el): 28.8 ml EF(MOD-sp4): 73.0 % EF(MOD-sp2): 62.5 % EF(sp4-el): 73.1 % SV(MOD-sp4): 73.1 ml SV(MOD-sp2): 47.5 ml SV(sp4-el): 73.7 ml SI(MOD-sp4): 37.6 ml/m2 SI(MOD-sp2): 24.4 ml/m2 LA A4 area: 18.6 cm2 LA dimension(2D): 4.6 cm RA A4 area: 17.3 cm2 TAPSE: 2.5 cm Time Measurements MV dec time: 0.17 sec Doppler Measurements Calculations MV E max heather: 62.6 cm/sec Lat Peak E' Heather: 6.3 cm/sec Med Peak E' Heather: 8.5 cm/sec MV A max heather: 74.6 cm/sec E/E' lat: 9.9 E/E' med: 7.4 MV E/A: 0.84 MV V2 max: 75.0 cm/sec MV P1/2t max heather: 63.6 cm/sec Ao V2 max: 131.7 cm/sec MV max P.2 mmHg MV P1/2t: 62.6 msec Ao max P.9 mmHg MV V2 mean: 46.1 cm/sec MV dec slope: 297.7 cm/sec2 Ao V2 mean: 79.3 cm/sec MV mean P.95 mmHg MVA(P1/2t): 3.5 cm2 Ao mean P.9 mmHg MV V2 VTI: 14.7 cm Ao V2 VTI: 18.3 cm AV (velocity ratio): 0.78 LV V1 max: 98.6 cm/sec PA V2 max: 80.4 cm/sec TR max heather: 208.5 cm/sec LV V1 max P.9 mmHg PA V2 mean: 53.1 cm/sec TR max P.4 mmHg LV V1 mean P.6 mmHg PA V2 VTI: 12.9 cm LV V1 mean: 59.1 cm/sec LV V1 VTI: 14.3 cm ECHO/Echo Complete W/ Contrast Interpretation Summary The estimated ejection fraction is 65 %. No evidence for diastolic dysfunction. ___ Ordering Physician: Galindo Gutierrez Referring Physician: Galindo Gutierrez Performed By: Estefania Griffiths, RDCS, RVT 04/06/258 Date Freedom Collier MD CC: Dr. Galindo Gutierrez MD Date Dictated: 04/04/2559 Date Transcribed: 04/06/251647 Hand Slitter: Signed Normal [facility] Gastric Emptying Studyon Gastric Emptying Study [facility] [address] [place] [address] [id number] Gastric Emptying Study MR#: [id number] Acct: [id number] Name: AMNA SEQUEIRA Rep #: [id number] : 1955 F 69 From: Del ferraro MD PCP: Dr. Galindo Gutierrez MD Status: REG CLI Study: Gastric Emptying Study Date of Exam: 03/20/25 Exam# [id number] Ordering Dr: Allyson Barkley PROCEDURE: GASTRIC EMPTYING STUDY 03/20/2025 REASON FOR EXAM: FREQUENT NAUSEA COMPARISON: None TECHNIQUE: The patient ingested a standard meal of cooked egg whites mixed with , oatmeal, toasted white bread, jelly, and water. There was no vomiting postprandially. Anterior and posterior planar images of the upper abdomen were obtained for 1 minute immediately following the meal at 1h, 2h and 4h if more than 10% of the activity persisted within the stomach. Regions of interest were drawn, and a geometric mean was used to calculate a [id number]. RADIOPHARMACEUTICAL: Sulfur colloid DOSE 1.2mCi FINDINGS: Percent activity remaining in stomach: 1 hour 62% % (normal 37-90%) NM/Gastric Emptying Study IMPRESSION: Normal gastric emptying examination. Reading Location: [place] [address] CC: MAGI Barkley; Dr. Galindo Gutierrez MD Hand Slitter: Signed Normal [facility] Gastroenterology Visit Repor ton 03-18-2025 Gastroenterology Visit Report [facility] [address] [place] [address] OFFICE VISIT Date of Service: 03/18/25 MR#: [id number] Acct: [id number] Name: AMNA SEQUEIRA Rep #: [id number] : 1955 Provider: MAGI henning Age/Sex: 69/F Location: [facility] Status: Signed Intake Vital Signs 07/28/24 15:55 Height 5 ft 5 in Intake Visit Reasons: 2 W FU Allergies Sulfa (Sulfonamide Antibiotics) Allergy (Verified 03/18/25 09:23) Hives AND RESP DISTRESS amoxicillin (From Augmentin) Adverse Reaction (Verified 03/18/25 09:23) Other clavulanic acid (From Augmentin) Adverse Reaction (Verified 03/18/25 09:23) Other codeine Adverse Reaction (Verified 03/18/25 09:23) Itching nitrofurantoin (Nitrofurantoin) Adverse Reaction (Verified 03/18/25 09:23) DECREASED HEART RATE Medications ???Medication ???Instructions ???Recorded ???Confirmed ???Type Advair 500/50 Mcg Diskus 1 puff inhalation TID 07/29/13 History albuterol sulfate 90 mcg/actuation 1 puff inhalation DAILY 07/29/13 03/18/25 History aerosol inhaler (Ventolin HFA) fluticasone 500 mcg-salmeterol 50 1 puff inhalation BID 07/29/13 History mcg/dose blistr powdr for inhalation (Advair Diskus) folic acid 1 mg tablet 1 mg PO DAILY@0800 07/29/13 History montelukast 10 mg tablet 10 mg PO DAILY 07/29/13 03/18/25 H istory multivitamin with folic acid 400 1 tab PO DAILY 07/29/13 03/18/25 H istory mcg tablet (Thera) tiotropium bromide 18 mcg capsule 1 puff inhalation DAILY 07/29/13 03/18/25 History with inhalation device (Spiriva with HandiHaler) warfarin 2.5 mg tablet (Jantoven) 2.5 mg PO QODAY 07/29/13 03/18/25 History warfarin 5 mg tablet (Jantoven) 5 mg PO QODAY 07/29/13 03/18/25 Hi story gabapentin 800 mg tablet mg PO 07/28/24 03/18/25 History isosorbide mononitrate 30 mg 30 mg PO DAILY 07/28/24 03/18/25 H istory tablet,extended release 24 hr levothyroxine 175 mcg tablet mcg PO 07/28/24 03/18/25 History oxycodone 10 mg tablet 10 mg PO 07/28/24 03/18/25 History potassium chloride 20 mEq 20 meq PO DAILY 07/28/24 03/18/25 History tablet,extended release(part/cryst) (Klor-Con M) alendronate 70 mg tablet 70 mg PO QWEEK 08/08/24 03/18/25 H istory alprazolam 0.25 mg tablet 0.25 mg PO TID PRN 08/08/24 History ampicillin 500 mg capsule 500 mg PO TID 08/08/24 03/18/25 Hi story melatonin 5 mg tablet 5 mg PO HS PRN 08/08/24 03/18/25 H istory methocarbamol 750 mg tablet 500 mg PO Q6H PRN Anxiety 08/08/24 03/18/25 History (Robaxin-750) omeprazole 40 mg capsule,delayed 40 mg PO QDAY 08/08/24 03/18/25 Hi story release ondansetron 4 mg disintegrating 4 mg PO Q6H 08/08/24 03/18/25 Hist ory tablet sucralfate 100 mg/mL oral 10 ml PO QACHS 08/08/24 03/18/25 H istory suspension (Carafate) metoclopramide HCl 5 mg tablet 5 mg PO QAC #42 tabs 03/04/25 05 Rx Have you fallen in the past year?: No PFSH Medical History Rheumatoid arthritis in remission Pancreatic pseudocyst Severe protein-calorie malnutrition Perforated gastric ulcer Chronic kidney disease, stage 3 COPD (chronic obstructive pulmonary disease) Anxiety Epistaxis Chronic anticoagulation Altered mental status History of DVT (deep vein thrombosis) Asthma Fibromyalgia Anemia Osteoporosis GERD without esophagitis Insomnia Dysphagia Osteoarthritis Surgical History History of tonsillectomy History of thyroidectomy History of right hip replacement History of total right knee replacement History of hysterectomy History of carpal tunnel surgery of right wrist Family History Sister Breast cancer Diabetes Brother Liver cancer Diabetes Father Diabetes CVA (cerebral vascular accident) Social History Smoking Status: Current every day smoker tobacco type: cigarettes alcohol intake: never HPI HPI Details: AMNA SEQUEIRA, is a 69 F who presents to the office today for FU after establishment with [facility] for recurrent nausea and abdominal pain before eating. 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 She was treated with antibiotics and sent home without surgeries. Amna reports having to take 3 Dramamine to even think about food or she will get severely nauseous. She also reports early satiety and increased abdominal bloating with associated increase in belching and mild flatulence. She states that sucralfate suspension helps some but ondansetron does n (more content not included)... Normal [facility] 3D MAMM BILAT SCREENon 03-17 3D MAMM BILAT SCREEN [place] [address] Patient: AMNA SEQUEIRA Phone#: : [phone] Age: 69 Gender: F Pt. Type: Out Account: [id number] Location: [facility] Ordering: GALINDO GUTIERREZ Exam Date: 03/17/2025/8:13 Family Phys: Charge Code: [id number] Physician: [place] Order #: [id number] Dose#: PROCEDURE: BILATERAL SCREENING BREAST TOMOSYNTHESIS MAMMOGRAM WITH CAD COMPARISON: [facility], BILAT SCREENING, 11/16/2018, 12:55. [facility], BILAT SCREENING, 11/26/2019, 15:08. INDICATIONS: Screening. BREAST COMPOSITION: The breasts are almost entirely fatty FINDINGS: DIAGNOSTIC CATEGORY 1--NEGATIVE NO CHANGE FROM COMPARISON ASSESSMENT. RIGHT BREAST: No significant suspicious finding. Scattered benign-appearing calcifications are present. No significant change has occurred. LEFT BREAST: No significant suspicious finding. No significant change has occurred. RECOMMENDATIONS: ROUTINE MAMMOGRAM AND CLINICAL EVALUATION IN 12 MONTHS. PLEASE NOTE: A NORMAL MAMMOGRAM DOES NOT EXCLUDE THE POSSIBILITY OF BREAST CANCER. A CLINICALLY SUSPICIOUS PALPABLE LUMP SHOULD BE BIOPSIED. THIS FACILITY UTILIZES A REMINDER SYSTEM TO ENSURE THAT ALL PATIENTS RECEIVE REMINDER LETTERS FOR APPOINTMENTS. THIS INCLUDES REMINDERS FOR ROUTINE MAMMOGRAMS, DIAGNOSITC MAMMOGRAMS, OR OTHER BREAST IMAGING INTERVENTIONS WHEN APPROPRIATE. THIS PATIENT WILL BE PLACED IN THE APPROPRIATE REMINDER SYSTEM. Dictated by: Inessa Marc MD on 03/17/2025 at 9:47 Approved by: Inessa Marc MD on 03/17/2025 at 9:55 Normal [facility] Gastrin, Serumon 03-06-2025 GASTRIN 170 pg/mL High 0-115 [facility] Comment on above: Result Comment: [facility] Immulite 2000 Immunochemiluminometric assay (ICMA) Values obtained with different assay methods or kits cannot be used interchangeably. Results cannot be interpreted as absolute evidence of the presence or absence of malignant disease. Performed at: [facility] [id number] Anesthesiologist/Physician: Hoda Crockett MD, Phone: [phone] Performed By: #### L 501.2450, L3300.1800, L501.2400 #### [facility] [address] [place], [address] Amylaseon 03-04-2025 BETITO 41 U/L Normal 28-100 [facility] Comment on above: Performed By: #### L 501.2450, L3300.1800, L501.2400 #### [facility] [address] [place], [address] Gastrin, serumOrdered By: Hakan Barkley on 03-04-2025 Gastrin [Mass/Vol] 170 pg/mL High 0-115 [facility] Comment on above: [employer] Immulite 200 0 Immunochemiluminometric assay (ICMA)Values obtained with different assay methods or kits cannotbe used interchangeably. Results cannot be interpreted asabsolute evidence of the presence or absence of malignantdisease.Performed at: [address] [id number] Director: Hoda Crockett MD, Phone: [phone] Gastroenterology Visit Repor ton 03-04-2025 Gastroenterology Visit Report [facility] Gastroenterology [address] [place] [address] OFFICE VISIT Date of Service: 03/04/25 MR#: [id number] Acct: [id number] Name: AMNA SEQUEIRA Rep #: [id number] : 1955 Provider: GREEN END MAN-C Allyson Ev ans Age/Sex: 69/F Location: [facility] Status: Signed Intake Vital Signs 07/28/24 15:55 Height 5 ft 5 in Intake Visit Reasons: Nausea/vomiting Allergies Sulfa (Sulfonamide Antibiotics) Allergy (Verified 03/04/25 09:41) Hives AND RESP DISTRESS amoxicillin (From Augmentin) Adverse Reaction (Verified 03/04/25 09:41) Other clavulanic acid (From Augmentin) Adverse Reaction (Verified 03/04/25 09:41) Other codeine Adverse Reaction (Verified 03/04/25 09:41) Itching nitrofurantoin (Nitrofurantoin) Adverse Reaction (Verified 03/04/25 09:41) DECREASED HEART RATE Medications ???Medication ???Instructions ???Recorded ???Confirmed ???Type Advair 500/50 Mcg Diskus 1 puff inhalation TID 07/29/1308/22 History albuterol sulfate 90 mcg/actuation 1 puff inhalation DAILY 07/29/13 08/08/24 History aerosol inhaler (Ventolin HFA) fluticasone 500 mcg-salmeterol 50 1 puff inhalation BID 07/29/13 History mcg/dose blistr powdr for inhalation (Advair Diskus) folic acid 1 mg tablet 1 mg PO DAILY@0800 07/29/13 History montelukast 10 mg tablet 10 mg PO DAILY 07/29/13 03/04/25 H istory multivitamin with folic acid 400 1 tab PO DAILY 07/29/13 03/04/25 H istory mcg tablet (Thera) tiotropium bromide 18 mcg capsule 1 puff inhalation DAILY 07/29/13 03/04/25 History with inhalation device (Spiriva with HandiHaler) warfarin 2.5 mg tablet (Jantoven) 2.5 mg PO QODAY 07/29/13 03/04/25 History warfarin 5 mg tablet (Jantoven) 5 mg PO QODAY 07/29/13 03/04/25 Hi story gabapentin 800 mg tablet mg PO 07/28/24 03/04/25 History isosorbide mononitrate 30 mg 30 mg PO DAILY 07/28/24 03/04/25 H istory tablet,extended release 24 hr levothyroxine 175 mcg tablet mcg PO 07/28/24 03/04/25 History oxycodone 10 mg tablet 10 mg PO 07/28/24 03/04/25 History potassium chloride 20 mEq 20 meq PO DAILY 07/28/24 03/04/25 History tablet,extended release(part/cryst) (Klor-Con M) alendronate 70 mg tablet 70 mg PO QWEEK 08/08/24 03/04/25 H istory alprazolam 0.25 mg tablet 0.25 mg PO TID PRN 08/08/24 History ampicillin 500 mg capsule 500 mg PO TID 08/08/24 08/08/24 Hi story melatonin 5 mg tablet 5 mg PO HS PRN 08/08/24 03/04/25 H istory methocarbamol 750 mg tablet 500 mg PO Q6H PRN Anxiety 08/08/24 03/04/25 History (Robaxin-750) omeprazole 40 mg capsule,delayed 40 mg PO QDAY 08/08/24 03/04/25 Hi story release ondansetron 4 mg disintegrating 4 mg PO Q6H 08/08/24 03/04/25 Hist ory tablet sucralfate 100 mg/mL oral 10 ml PO QACHS 08/08/24 03/04/25 H istory suspension (Carafate) metoclopramide HCl 5 mg tablet 5 mg PO QAC #42 tabs 03/04/2504/23 Rx Have you fallen in the past year?: No PFSH Medical History Rheumatoid arthritis in remission Pancreatic pseudocyst Severe protein-calorie malnutrition Perforated gastric ulcer Chronic kidney disease, stage 3 COPD (chronic obstructive pulmonary disease) Anxiety Epistaxis Chronic anticoagulation Altered mental status History of DVT (deep vein thrombosis) Asthma Fibromyalgia Anemia Osteoporosis GERD without esophagitis Insomnia Dysphagia Osteoarthritis Surgical History History of tonsillectomy History of thyroidectomy History of right hip replacement History of total right knee replacement History of hysterectomy History of carpal tunnel surgery of right wrist Family History Sister Breast cancer Diabetes Brother Liver cancer Diabetes Father Diabetes CVA (cerebral vascular accident) Social History Smoking Status: Current every day smoker tobacco type: cigarettes alcohol intake: never HPI HPI Details: AMNA SEQUEIRA, is a 69 F who presents to the office today for establishment with [facility] for recurrent nausea and abdominal pain before eating. 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 She was treated with antibiotics and sent home without surgeries. Amna reports having to take 3 Dramamine to even think about food or she will get severely nauseous. She also reports early satiety and increased abdominal bloating with associated increase in belching and mild flatulence. She states that sucralfate suspension helps some but ondansetron does n (more content not included)... Normal [facility] Lipaseon 03-04-2025 Lipase [Catalytic activity/Vol] 35 U/L Normal 13-75 [facility] Comment on above: Result Comment: Brit[facility] centeno note: LIPASE revised reference range effective 23. New Lipase methodology. Expected to produce lower values than the previous assay method. NEW Reference Range: 13 - 75 U/L Performed By: #### L 501.2450, L3300.1800, L501.2400 #### [facility] [address] [place], [address] Lipase measurementOrdered By : Allyson Barkley on 03-04-2025 Lipase [Catalytic activity/Vol] 35 U/L 13-75 [facility] Comment on above: Please note:LIPASE r evised reference range effective 23. New Lipase methodology. Expected to produce lower values than the previous assay method. NEW Reference Range: 13 - 75 U/L Serum or plasma amylase killian urement (enzymatic activity/volume)Ordered By: Allyson Barkley on 03-04-2025 Amylase [Catalytic activity/Vol] 41 U/L 28-100 [facility] CBC (INCLUDES DIFF/PLT)on Basophils (Bld) [#/Vol] 0.054 10*3/uL Normal 0-200 [facility] Comment on above: Performed By: #### 1 5501, 6399 #### [facility] of [place] [address] [address] Box Tender: Braulio Roach MD Basophils/100 WBC (Bld) 0.4 % Normal [facility] Comment on above: Performed By: #### 1 0231, 6399 #### [facility] of [address], [address] [place] [address] Gill Box Tender: Braulio Roach MD Eosinophils (Bld) [#/Vol] 0.081 10*3/uL Normal 15-500 [facility] Comment on above: Performed By: #### 1 0231, 6399 #### [facility] [place] [address] [place] [employer] Tender: Braulio Roach MD Eosinophils/100 WBC (Bld) 0.6 % Normal [facility] Comment on above: Performed By: #### 1 023, 6399 #### [facility] [place] [address] [place] [employer] Tender: Braulio Roach MD Erythrocyte distribution width (RBC) [Ratio] 18.8 % High 11.0-15.0 [facility] Comment on above: Performed By: #### 1 0231, 6399 #### [facility] [place] [address] [place] [employer] Tender: Braulio Roach MD Hematocrit (Bld) [Volume fraction] 33.7 % Low 35.0-45.0 [facility] Comment on above: Performed By: #### 1 0231, 6399 #### [facility] [place] [address] [place] [employer] Tender: Braulio Roach MD Hemoglobin (Bld) [Mass/Vol] 9.2 g/dL Low 11.7-15.5 [facility] Comment on above: Performed By: #### 1 0231, 6399 #### [facility] [place] [address] [place] [employer] Tender: Braulio Roach MD Lymphocytes (Bld) [#/Vol] 0.878 10*3/uL Normal 850-3900 [facility] Comment on above: Performed By: #### 1 0231, 6399 #### [facility] [place] [address] [place] [employer] Tender: Braulio Roach MD Lymphocytes/100 WBC (Bld) 6.5 % Normal [facility] Comment on above: Performed By: #### 1 0231, 6399 #### [facility] [place] [address] [place] [employer] Tender: Braulio Roach MD MCH (RBC) [Entitic mass] 20.7 pg Low 27.0-33.0 [facility] Comment on above: Performed By: #### 1 0231, 6399 #### [facility] [place] [address] [place] Box Tender: Braulio Roach MD MCHC (RBC) [Mass/Vol] 27.3 g/dL Low 32.0-36.[address] [facility] Comment on above: Result Comment: For adults, a slight decrease in the calculated MCHC value (in the range of 30 to 32 g/dL) is most likely not clinically significant; however, it should be interpreted with caution in correlation with other red cell parameters and the patient's clinical condition. Performed By: #### 1 023, 6399 #### [facility] [place] [address] [place] [employer] Tender: Braulio Roach MD MCV (RBC) [Entitic vol] 75.7 fL Low 80.0-100.0 [facility] Comment on above: Performed By: #### 1 0231, 6399 #### [facility] [place] [address] [place] Box Tender: Braulio Roach MD Monocytes (Bld) [#/Vol] 0.594 10*3/uL Normal 200-950 [facility] Comment on above: Performed By: #### 1 0231, 6399 #### [facility] of [place] [id number] Gill Box Tender: Braulio Roach MD Monocytes/100 WBC (Bld) 4.4 % Normal [facility] Comment on above: Performed By: #### 1 0231, 6399 #### [facility] [place] [address] [place] [employer] Tender: Braulio Roach MD Neutrophils (Bld) [#/Vol] 11.894 10*3/uL High 9194-5845 [facility] Comment on above: Performed By: #### 1 0231, 6399 #### [facility] [place] [address] [place] Box Tender: Braulio Roach MD Neutrophils/100 WBC (Bld) 88.1 % Normal [facility] Comment on above: Performed By: #### 1 0231, 6399 #### [facility] [place] [address] [employer] Box Tender: Braulio Roach MD Platelet mean volume (Bld) [Entitic vol] 9.6 fL Normal 7.5-12.5 [facility] Comment on above: Performed By: #### 1 0231, 6399 #### [facility] [place] [address] [place] Box Tender: Braulio Roach MD Platelets (Bld) [#/Vol] 488 10*3/uL High 140-400 [facility] Comment on above: Performed By: #### 1 0231, 6399 #### [facility] [place] [address] [place] Box Tender: Braulio Roach MD RBC (Bld) [#/Vol] 4.45 10*6/uL Normal 3.80-5.10 [facility] Comment on above: Performed By: #### 1 0231, 6399 #### [facility] [place] [address] [place] Box Tender: Braulio Roach MD WBC (Bld) [#/Vol] 13.5 10*3/uL High 3.8-10.8 [facility] Comment on above: Performed By: #### 1 0231, 6399 #### [facility] of [place] [address] Gill Box Tender: Braulio Roach MD [facility] 03-02-2025 Albumin [Mass/Vol] 3.9 g/dL Normal 3.6-5.1 [facility] Comment on above: Performed By: #### 1 0231, 6399 #### [facility] of [address], [address] [place] [address] Gill Box Tender: Braulio Roach MD Albumin/Globulin [Mass ratio] 1.0 {ratio} Normal 1.0-2.5 [facility] Comment on above: Performed By: #### 1 0231, 6399 #### [facility] [place] [address] [place] Box Tender: Braulio Roach MD ALP [Catalytic activity/Vol] 58 U/L Normal 37-153 [facility] Comment on above: Performed By: #### 1 0231, 6399 #### [facility] [place] [address] Gill Box Tender: Braulio Roach MD ALT [Catalytic activity/Vol] 6 U/L Normal 6-29 [facility] Comment on above: Performed By: #### 1 0231, 6399 #### [facility] [place] [address] Gill Box Tender: Braulio Roach MD AST [Catalytic activity/Vol] 12 U/L Normal 10-35 [facility] Comment on above: Performed By: #### 1 0231, 6399 #### [facility] [place] [address] Gill Box Tender: Braulio Roach MD Bilirubin [Mass/Vol] 0.2 mg/dL Normal 0.2-1.2 [facility] Comment on above: Performed By: #### 1 0231, 6399 #### [facility] of [address] [place] [address] Gill Box Tender: Braulio Roach MD BUN/CREATININE RATIO SEE NOTE: Normal 6-22 [facility] Comment on above: Result Comment: Not Reported: BUN and Creatinine are within reference range. Performed By: #### 1 0231, 6399 #### [facility] [address], [address] [place] [address] Gill Box Tender: Braulio Roach MD Calcium [Mass/Vol] 8.7 mg/dL Normal 8.6-10.4 [facility] Comment on above: Performed By: #### 1 0231, 6399 #### [facility] [address], [address] [place] [address] Gill Box Tender: Braulio Roach MD Chloride [Moles/Vol] 106 mmol/L Normal 98-[address] [facility] Comment on above: Performed By: #### 1 0231, 6399 #### [facility] [address], [address] [place] [address] Gill Box Tender: Braulio Roach MD CO2 [Moles/Vol] 23 mmol/L Normal 20-32 [facility] Comment on above: Performed By: #### 1 0231, 6399 #### [facility] [place] [address] Gill Box Tender: Braulio Roach MD Creatinine [Mass/Vol] 0.76 mg/dL Normal 0.50-1.[address] [facility] [address] [facility] Comment on above: Performed By: #### 1 0231, 6399 #### [facility] [place] [address] Gill Box Tender: Braulio Roach MD GFR/1.73 sq M.predicted among non-blacks MDRD (S/P/Bld) [Vol rate/Area] 85 mL/min/{1.73_m2} Normal > OR = 60 [facility] Comment on above: Performed By: #### 1 0231, 6399 #### [facility] [address], [address] [place] [address] Gill Box Tender: Braulio Roach MD Globulin (S) [Mass/Vol] 3.8 g/dL High 1.9-3.7 [facility] Comment on above: Performed By: #### 1 0231, 6399 #### [facility] [place] [address] Gill Box Tender: Braulio Roach MD Glucose [Mass/Vol] 113 mg/dL High 65-99 [facility] Comment on above: Result Comment: Fasting reference interval For someone without known diabetes, a glucose value between 100 and 125 mg/dL is consistent with prediabetes and should be confirmed with a follow-up test. Performed By: #### 1 0231, 6399 #### [facility] [place] [address] Gill Box Tender: Braulio Roach MD Potassium [Moles/Vol] 5.0 mmol/L Normal 3.5-5.[address] [facility] [address] [facility] Comment on above: Performed By: #### 1 0231, 6399 #### [facility] [place] [address] Gill Box Tender: Braulio Roach MD Protein [Mass/Vol] 7.7 g/dL Normal 6.1-8.1 [facility] Comment on above: Performed By: #### 1 0231, 6399 #### [facility] [place] [address] Gill Box Tender: Braulio Roach MD Sodium [Moles/Vol] 138 mmol/L Normal 135-146 [facility] Comment on above: Performed By: #### 1 0231, 6399 #### [facility] [place] [address] Gill Box Tender: Braulio Roach MD Urea nitrogen [Mass/Vol] 12 mg/dL Normal 7-25 [facility] Comment on above: Performed By: #### 1 0231, 6399 #### [facility] [place] [address] Gill Box Tender: Braulio Roach MD TSHon 03-02-2025 TSH Qn 1.79 m[IU]/L Normal 0.40-4.50 [facility] Comment on above: Performed By: #### 1 0231, 6399 #### [facility] [address] [facility], [address] [place] [address] Gill Box Tender: Braulio Roach MD CREATININE BLDon 11-04-2024 Creatinine [Mass/Vol] 0.69 mg/dL Normal 0.58-0.96 [facility] Comment on above: Order Comment: Speci men Type: BLOOD SPECIMEN Ordering Facility: [facility] Address: [address] [place] [address] Performed By: #### C RET1 #### [facility] [id number] [address] [place] [address] [place] Creatinine and Glomerular filtration rate.predicted panel (S/P/Bld) 94 mL/min/1.73m??? Normal >=60 [facility] Comment on above: Order Comment: Speci men Type: BLOOD SPECIMEN Ordering Facility: [facility] Address: [address] [place] [address] Result Comment: Gisela mated Glomerular Filtration Rate (eGFR) is calculated using the 2020 CKD-EPI creatinine equation. This equation utilizes serum creatinine, sex, and age as parameters. The creatinine assay has traceable calibration to isotope dilution-mass spectrometry. Refer to KDIGO guidelines for clinical interpretation. In patients with unstable renal function, e.g. those with acute kidney injury, the eGFR may not accurately reflect actual GFR. Performed By: #### C RET1 #### [facility] CLIA [id number] [address] [place] [address] [place] CT LIVER W IVCONon CT LIVER W IVCON * * *Final Report* * * DATE OF EXAM: Nov 04 2024 3:22PM [facility] 0548 - CT LIVER W IVCON / PROCEDURE REASON: Liver lesion * * * * Physician Interpretation * * * * EXAMINATION: CT ABDOMEN WITH IV CONTRAST (LIVER) CLINICAL HISTORY: Liver lesion TECHNIQUE: Multiphase imaging of the abdomen was performed utilizing IV contrast. Contrast: IV: 125 ml of Omnipaque 350 Oral: none CT Radiation dose: Integrated Dose-length product (DLP) for this visit = 2082 mGy*cm. CT Dose Reduction Employed: Automated exposure control(AEC) and iterative recon COMPARISON: Outside CT 07/28/2024. RESULT: Liver: Again noted is a low-attenuation focus in the anterior aspect of the LEFT hepatic lobe segment Renata along the lateral aspect of the falciform ligament, 1.9 x 1.3 cm. No abnormal peripheral enhancement. Liver is otherwise unremarkable. Pancreas: No mass or duct dilation. Adrenals: No mass. Kidneys: There is bilateral low-attenuation renal densities consistent with cysts. Largest about 3 cm. GI tract: No dilation or wall thickening. Lymph nodes: No abdominal lymphadenopathy. Mesentery/Peritoneum: No ascites. No mass. Retroperitoneum: No mass. Vasculature: - Abdominal aorta: Patent. Atherosclerotic calcifications without aneurysm. - Portal venous system (SMV, splenic vein, portal vein and branches): Patent. - Celiac and SMA: Patent. No stenosis. - Hepatic artery: Patent. Conventional anatomy. - Hepatic veins: Patent. - Collaterals: Spontaneous splenorenal shunt: Absent Recanalized paraumbilical vein: Absent Esophageal varices: Absent Mesenteric portosystemic collaterals: Absent IVC filter noted. Bones/Soft Tissues: Compression deformities lower thoracic and lumbar spine unchanged from prior CT. Lower thorax: No infiltrate or pleural effusion. Localizer images: Unremarkable. IMPRESSION: Stable low-attenuation hepatic density, likely focal steatosis Stable thoracolumbar compression deformities. Renal cysts Hand Slitter: [facility] Transcribe Date/Time: Nov 07 2024 2:19P Dictated by : LIBRA ROSARIO MD This examination was interpreted and the report reviewed and electronically signed by: LIBRA ROSARIO MD on Nov 07 2024 2:33PM EST [id number] Normal [facility] CNCOon 08-20-2024 CNCO Letter Text Normal [facility] CNOVon 08-20-2024 CNOV Office Visit (AGGENS 3) ----- AMNA SEQUEIRA ([id number]) 1955 F Date Time Provider Department 08/20/24 2:00 PM AUBREE IRELAND AGGENS3 During your visit today, we recorded the following information about you: Pulse Blood pressure Height 84/minute 132/78 1.626 m Aubree Ireland MD 08/20/2024 2:49 PM Signed [facility] SURGERY PROGRESS NOTE Subjective INTERVAL HISTORY OF PRESENT ILLNESS: Doing well overall Abdominal pain that she had while in the hospital has resolved She is able to eat, but notices it is smaller amounts Having 5-6 episodes of diarrhea daily Last dose of augmentin today; eating yogurt daily Objective PHYSICAL EXAM: BP 132/78 Pulse 84 Ht 5' 4 (1.63m) SpO2 97% Physical Exam Performed GENERAL: Alert, no distress, cooperative LUNGS: Negative ABDOMEN: Soft, nontender The remainder of the physical exam is noncontributory. DATA: Diagnostic tests reviewed for today's visit: Most recent labs and imaging results. CT pancreas 08/13/24: --Almost complete resolution of previously seen fluid collections adjacent and within the pancreas, with small residual foci of air. --No definite suspicious focal pancreatic lesions. No pancreatic ductal dilation --Unchanged hypodense hepatic lesion, which may represent focal fat however is strictly indeterminate Assessment/Plan 69 year old female recently admitted with posterior gastric perforation that has now almost completely resolved. Having diarrhea and finished antibiotics today. Indeterminate liver lesion on scan, but patient refusing MRI. --CT liver 3 months --Virtual follow-up after --Check cdiff - if negative, ok to use imodium PRN --Continue PPI/carafate --Avoid NSAIDs; counseled to stop smoking and patient not interested; avoid more prednisone - patient unable to stop taking it and unwilling to take anything else for her RA Luisa Ireland MD [facility] Surgeon Aubree Ireland MD 08/20/2024 2:49 PM Signed Addended by: AUBREE IRELAND on: 08/20/2024 02:49 PM Modules accepted: Orders Allergies As of Date: 08/20/2024 Noted Allergy Reaction BACTRIM (SULFAMETHOXAZOLE) 10/26/2011 2 - Rash MACROBID (NITROFURANTOIN MONOHYD/*10/26/2011 14 - Other: See Comments Comments: Decreased heart rate SULFA (SULFONAMIDE ANTIBIOTICS) 02/06/2014 4 - Hives Date Reviewed: 08/20/2024 Reviewed by: Erin Farnsworth - Fully Assessed Reason for Visit: Established Patient [175] Cmt: Follow up CT Scan/ hospital follow up Primary Visit Diagnosis:Liver lesion [K76.9] Other Visit Diagnosis:Diarrhea of presumed infectious origin [R19.7] Order(s):MRI LIVER WO/W IVCON [[id number]] Order #: [id number] FUTURE iv contrast (will be provided with radiology test)MRI Liver Inject, intravenously, once for 1 dose. No IV access, insert saline lock prior to the beginning of sedation, infusion, injection of imaging exam. Discontinue saline lock post exam. If Pt. has a central line or IVAD, may access for administration according to line specific nursing protocol. Once exam is complete flush line and de-access according to line specific nursing protocol in the MR contrast administration guidelines link.Disp: 1 EachRfl: 0 CT LIVER W IVCON [[id number]] Order #: [id number] FUTURE iv contrast (will be provided with radiology test)CT LIVER W IVCON Inject, intravenously, once for 1 dose. No IV access, insert saline lock prior to the beginning of sedation, infusion, injection of imaging exam. Discontinue saline lock post exam. If Pt. has a central line or IVAD, may access for administration according to line specific nursing protocol. Once exam is complete flush line and de-access according to line specific nursing protocol in the CT contrast administration guidelines link.Disp: 1 EachRfl: 0 C. DIFFICILE PCR [SQCDPCR] Order #: [id number]. #:[id number] Prescriptions as of 08/20/2024 - iv contrast (will be provided with radiology test) MRI Liver Inject, intravenously, once for 1 dose. No IV access, insert saline lock prior to the beginning of sedation, infusion, injection of imaging exam. Discontinue saline lock post exam. If Pt. has a central line or IVAD, may access for administration according to line specific nursing protocol. Once exam is complete flush line and de-access according to line specific nursing protocol in the MR contrast administration guidelines link. - iv contrast (will be provided with radiology test) CT LIVER W IVCON Inject, intravenously, once for 1 dose. No IV access, insert saline lock prior to the beginning of sedation, infusion, injection of imaging exam. Discontinue saline lock post exam. If Pt. has a central line or IVAD, may access for administration according to line specific nursing protocol. Once exam is complete flush line and de-access according to line specific nursing protocol in the CT contrast ad (more content not included)... Normal [facility] CT PANCREAS W IVCONon 2023 CT PANCREAS W IVCON * * *Final Report* * * DATE OF EXAM: Aug 13 2024 3:40PM [facility] 0552 - CT PANCREAS W IVCON / PROCEDURE REASON: Acute pancreatitis, unspecified complication status, unspecified pancreatitis ty * * * * Physician Interpretation * * * * EXAMINATION: CT ABDOMEN WITH IV CONTRAST CLINICAL HISTORY: Pancreatitis, previously seen fluid collections. TECHNIQUE: CT of the abdomen was performed using pancreatic protocol, scanning arterial and portal venous phase from just above the dome of the diaphragm to the iliac crests. Contrast: IV: 125 ml of Omnipaque 350 : ml of CT Radiation dose: Integrated Dose-length product (DLP) for this visit = 1051 mGy*cm. CT Dose Reduction Employed: Automated exposure control(AEC) and iterative recon COMPARISON: CT 07/29/2024 RESULT: Liver: Unchanged hypodense lesion in segment 4 adjacent to the falciform ligament measuring 2 cm. No new lesions. Biliary: No bile duct dilation. Gallbladder is unremarkable. Spleen: No mass. No splenomegaly. Pancreas: No mass or duct dilation. The previously seen fluid and air collection adjacent to the pancreas has almost completely resolved with small foci of residual air but no significant fluid component. The largest air component measures approximately 1.8 x 1.4 cm (8:43). The previously seen smaller cystic lesion within the posterior pancreatic body has also resolved and now has been replaced by a small air component. Adrenals: No mass. Kidneys: Benign renal cysts. No hydronephrosis. GI tract: No dilation or wall thickening. Lymph nodes: No abdominal or pelvic lymphadenopathy. Mesentery/Peritoneum: No ascites or mass. Retroperitoneum: No mass. Vasculature: The celiac axis and SMA are patent. The portal vein and branches, splenic vein, SMV, and hepatic veins are patent. Arterial atherosclerotic disease without aneurysm. IVC filter. Bones/Soft Tissues: Degenerative changes. Compression deformity of multiple vertebral bodies, unchanged. Lower thorax: Unremarkable. Clip Loading Machine Adjuster (topogram) images: No additional findings. IMPRESSION: 1. Almost complete resolution of previously seen fluid collections adjacent and within the pancreas, with small residual foci of air. 2. No definite suspicious focal pancreatic lesions. No pancreatic ductal dilation. 3. Unchanged hypodense hepatic lesion, which may represent focal fat however is strictly indeterminate. Hand Slitter: [facility] Transcribe Date/Time: Aug 20 2024 9:03A Dictated by : KATRIN GUZMAN MD This examination was interpreted and the report reviewed and electronically signed by: KATRIN GUZMAN MD on Aug 20 2024 9:18AM EST [id number] Normal [facility] Basic metabolic 2000 panelon 08-01-2024 Anion gap [Moles/Vol] 11 mmol/L Normal 8-15 [facility] Comment on above: Order Comment: [facility] Type: BLOOD SPECIMEN Ordering Facility: [facility] Address: [address] [place] [address] Performed By: #### 3 040-3 #### [facility] CLIA [id number] [address] [place] [address] [place] Calcium [Mass/Vol] 8.3 mg/dL Low 8.5-10.2 [facility] Comment on above: Order Comment: [facility] Type: BLOOD SPECIMEN Ordering Facility: [facility] Address: [address] [place] [address] Performed By: #### 3 040-3 #### [facility] CLIA [id number] [address] [place] [address] [place] Chloride [Moles/Vol] 102 mmol/L Normal 98-107 [facility] Comment on above: Order Comment: [facility] Type: BLOOD SPECIMEN Ordering Facility: [facility] Address: [address] [place] [address] Performed By: #### 3 040-3 #### [facility] CLIA [id number] [address] CO2 [Moles/Vol] 24 mmol/L Normal 22-30 [facility] Comment on above: Order Comment: Speci men Type: BLOOD SPECIMEN Ordering Facility: [facility] Address: [address] [place] [address] Performed By: #### 3 040-3 #### [facility] CLIA [id number] [address] Creatinine [Mass/Vol] 0.60 mg/dL Normal 0.58-0.96 [facility] Comment on above: Order Comment: Speci men Type: BLOOD SPECIMEN Ordering Facility: [facility] Address: [address] [place] [address] Performed By: #### 3 040-3 #### [facility] CLIA [id number] [address] Creatinine and Glomerular filtration rate.predicted panel (S/P/Bld) 97 mL/min/1.73m??? Normal >=60 [facility] Comment on above: Order Comment: Speci men Type: BLOOD SPECIMEN Ordering Facility: [facility] Address: [address] [place] [address] Result Comment: Gisela mated Glomerular Filtration Rate (eGFR) is calculated using the 2020 CKD-EPI creatinine equation. This equation utilizes serum creatinine, sex, and age as parameters. The creatinine assay has traceable calibration to isotope dilution-mass spectrometry. Refer to KDIGO guidelines for clinical interpretation. In patients with unstable renal function, e.g. those with acute kidney injury, the eGFR may not accurately reflect actual GFR. Performed By: #### 3 040-3 #### [facility] CLIA [id number] [address] Glucose [Mass/Vol] 81 mg/dL Normal 74-99 [facility] Comment on above: Order Comment: Speci men Type: BLOOD SPECIMEN Ordering Facility: [facility] Address: [address] [place] [address] Result Comment: The [place] Diabetes Association (ADA) provides guidance for cutoff values for fasting glucose and random glucose. The ADA defines fasting as no caloric intake for at least 8 hours. Fasting plasma glucose results between 100 to 125 mg/dL indicate increased risk for diabetes (prediabetes). Fasting plasma glucose results greater than or equal to 126 mg/dL meet the criteria for diagnosis of diabetes. In the absence of unequivocal hyperglycemia, results should be confirmed by repeat testing. In a patient with classic symptoms of hyperglycemia or hyperglycemic crisis, random plasma glucose results greater than or equal to 200 mg/dL meet the criteria for diagnosis of diabetes. Reference: Standards of Medical Care in Diabetes 2016, [place] [employer] Association. Diabetes Care. 2016.39(Suppl 1). Performed By: #### 3 040-3 #### [facility] CLIA [id number] [address] Potassium [Moles/Vol] 3.4 mmol/L Low 3.7-5.1 [facility] Comment on above: Order Comment: Monika dye Type: BLOOD SPECIMEN Ordering Facility: [facility] Address: [address] [place] [address] Performed By: #### 3 040-3 #### [facility] CLIA [id number] [address] [place] [facility] Sodium [Moles/Vol] 137 mmol/L Normal 136-144 [facility] Comment on above: Order Comment: Monika dye Type: BLOOD SPECIMEN Ordering Facility: [facility] Address: [address] [place] [address] Performed By: #### 3 040-3 #### [facility] CLIA [id number] [address] [place] [facility] Urea nitrogen [Mass/Vol] 3 mg/dL Low 7-21 [facility] Comment on above: Order Comment: Monika dye Type: BLOOD SPECIMEN Ordering Facility: [facility] Address: [address] [place] [address] Performed By: #### 3 040-3 #### [facility] CLIA [id number] [address] [facility] CBC panel Auto (Bld)on 08-01 Erythrocyte distribution width (RBC) [Ratio] 21.2 % High 11.5-15.0 [facility] Comment on above: Order Comment: Speci men Type: BLOOD SPECIMEN Ordering Facility: [facility] Address: [address] [place] [address] Performed By: #### 3 040-3 #### [facility] CLIA [id number] [address] Hematocrit (Bld) [Volume fraction] 29.3 % Low 36.0-46.0 [facility] Comment on above: Order Comment: Speci men Type: BLOOD SPECIMEN Ordering Facility: [facility] Address: [address] [place] [address] Performed By: #### 3 040-3 #### [facility] CLIA [id number] [address] Hemoglobin (Bld) [Mass/Vol] 8.6 g/dL Low 11.5-15.5 [facility] Comment on above: Order Comment: Speci men Type: BLOOD SPECIMEN Ordering Facility: [facility] Address: [address] [place] [address] Performed By: #### 3 040-3 #### [facility] CLIA [id number] [address] MCH (RBC) [Entitic mass] 23.0 pg Low 26.0-34.0 [facility] Comment on above: Order Comment: Speci men Type: BLOOD SPECIMEN Ordering Facility: [facility] Address: [address] [place] [address] Performed By: #### 3 040-3 #### [facility] CLIA [id number] [address] [place] MCHC (RBC) [Mass/Vol] 29.4 g/dL Low 30.5-36.0 [facility] Comment on above: Order Comment: Speci men Type: BLOOD SPECIMEN Ordering Facility: [facility] Address: [address] [place] [address] Performed By: #### 3 040-3 #### [facility] CLIA [id number] [address] MCV (RBC) [Entitic vol] 78.3 fL Low 80.0-100.0 [facility] Comment on above: Order Comment: Speci men Type: BLOOD SPECIMEN Ordering Facility: [facility] Address: [address] [place] [address] Performed By: #### 3 040-3 #### [facility] CLIA [id number] [address] [place] Nucleated RBC (Bld) [#/Vol] 10*3/uL Normal <0.01 [facility] Comment on above: Order Comment: Speci men Type: BLOOD SPECIMEN Ordering Facility: [facility] Address: [address] [place] [address] Performed By: #### 3 040-3 #### [facility] CLIA [id number] [address] [place] Platelet mean volume (Bld) [Entitic vol] 8.7 fL Low 9.0-12.7 [facility] Comment on above: Order Comment: Speci men Type: BLOOD SPECIMEN Ordering Facility: [facility] Address: [address] [place] [address] Performed By: #### 3 040-3 #### [facility] CLIA [id number] [address] Platelets (Bld) [#/Vol] 512 10*3/uL High 150-400 [facility] Comment on above: Order Comment: Speci men Type: BLOOD SPECIMEN Ordering Facility: [facility] Address: [address] [place] [address] Performed By: #### 3 040-3 #### [facility] CLIA [id number] [address] [place] RBC (Bld) [#/Vol] 3.74 10*6/uL Low 3.90-5.20 [facility] Comment on above: Order Comment: Speci men Type: BLOOD SPECIMEN Ordering Facility: [facility] Address: [address] [place] [address] Performed By: #### 3 040-3 #### [facility] CLIA [id number] [address] [place] WBC (Bld) [#/Vol] 9.02 10*3/uL Normal 3.70-11.00 [facility] Comment on above: Order Comment: Speci men Type: BLOOD SPECIMEN Ordering Facility: [facility] Address: [facility] [place] [address] Performed By: #### 3 040-3 #### [facility] CLIA [id number] [address] [place] [id number] [facility] CNDSon 08-01-2024 CNDS HNO ID: [id number] Author: AUBREE IRELAND MD Service: General Surgery Author Type: Resident Type: Discharge Summary Filed: 08/01/2024 14:45 Note Text: ----- Attestation signed by Aubree Ireland MD at 08/01/2024 2:45 PM Attending Note I evaluated the patient and personally participated in the acosta components. I agree with the resident's findings and plan as documented and have discussed the case and management of the patient's care with the resident. I spent <30 minutes on this discharge. Signature: Aubree Ireland MD Date: 08/01/2024 Time: 2:45 PM ----- DISCHARGE SUMMARY PATIENT NAME: Amna Sequeira Code Status: Not on file Highest Readmission Risk Score: 28 The 30 day readmissions risk score is derived from an internally validated risk model which evaluates patient level characteristics, utilization history, medication orders and lab results up until the day of discharge. Patients with a score of 40 or above are considered highest risk for readmission. Specific patient level drivers will be listed at the bottom of the summary. Admission Information Admission Information ADMIT DATE: 07/28/2024 DISCHARGE DATE: 08/01/2024 MY DOCTORS AND MEDICAL TEAM: My Main Hospital Doctor: Aubree Ireland MD Primary Care Provider: No primary care provider on file. My Medical Team Members: Treatment Team: Attending Provider: Aubree Ireland MD Consulting: Yaya Howard MD MY CONDITION AT DISCHARGE: Stable REASON I WAS IN THE HOSPITAL: Perforated gastric ulcer with Pancreatic fistula SUMMARY OF WHAT HAPPENED WHILE I WAS IN THE HOSPITAL: Patient was admitted to the hospital after having abdominal pain and vomiting. 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 She was seen by the [facility] and admitted. She was started on antibiotics and antifungals. She had an EGD which showed some fluid in the stomach concerning for pancreatic fluid but no obvious fistula. She was given a diet and monitored for tolerance. She was advanced appropriately. She was seen on 08/01/2024 and deemed stable for discharge. OTHER PROBLEMS/DIAGNOSIS: Principal Problem: Vomiting Active Problems: Obesity (BMI 30-39.9) Current use of correction anticoagulation Gastric ulcer, acute with perforation and obstruction (HCC) Severe protein-calorie malnutrition (HCC) Pancreatic pseudocyst Rheumatoid arthritis in remission (HCC) Chronic, continuous use of opioids Primary osteoarthritis involving multiple joints Fibromyalgia Gastric perforation (HCC) Abdominal pain Resolved Problems: * No resolved hospital problems. * OPERATIONS PERFORMED WHILE IN THE HOSPITAL: None IMPORTANT TEST/PROCEDURES: 07/31/24: EGD TEST RESULTS NOT AVAILABLE AT THIS TIME: No pending results Discharge Disposition Discharge Disposition: Home With Self Care Activity When You Leave the Hospital Resume pre-hospital activity Diet Instructions Resume your pre-hospital diet For Pain When You Leave the Hospital If you become constipated, you may use any wtnv-xjo-ujjflez treatment such as Milk of Magnesia, Sennakot, Prune Juice, Suppositories, etc. in addition to the stool softener/fiber supplement Other: Do not use any NSAIDs Use acetaminophen (Tylenol) as recommended on the bottle Use the dispensed medication (see prescription) You should use an jkhs-iia-urrilxa stool softener (Docusate sodium) and/or a fiber supplement (Metamucil, Fiber Con) every day while taking prescribed pain medication Call Your Doctor If There is an unusual odor from the wound area There is severe pain at the operative site You have a severe headache You have lightheadedness, fainting, or confusion You have persistent nausea/vomiting over 24 hours You have persistent or heavy bleeding You have redness, swelling, pus or drainage from the wound You have swollen glands or cold and clammy skin Your temperature is greater than 101F Follow Up Appointments Follow-Up Appointment When: In 2 weeks Aubree Ireland MD [phone] [place] [address] PCP Requested Referral Additional Provider to Provider Information: No notes on file Malnutrition Diagnosis supported by Registered Dietitian:Moderate Protein-Calorie Malnutrition Based on: Insufficient Energy Intake, Muscle Loss Assessment: I have reviewed the result of the malnutrition assessment and plan and agree Plan: Diet, Medications Wound 07/29/24 2300 Pressure Injury Sacrum (Active) Properties Placement Date 07/29/24 Placement Time 2300 Location Sacrum Present on Original Admission Yes Primary Wound Typ (more content not included)... Normal [facility] NURSING PROGon 08-01-2024 NURSING PROG HNO ID: [id number] Author: GRADY HARRIS RN Service: Nursing Author Type: Registered Nurse Type: Nursing Progress Note Filed: 08/01/2024 14:57 Note Text: Spoke with Dr. Swan about patients discharge. Expressed concern that patient is still on a heparin drip. Dr. Swan states that patient is to take coumadin as she would at home and that she has a IRN check on Monday. Order to continue heparin drip until patient is discharged. Normal [facility] THERAPY NTon 08-01-2024 THERAPY NT HNO ID: [id number] Author: AUBREE SHORT, OTR/L Service: Occupational Therapy Author Type: Occupational Therapist Type: Therapy (PT/OT/Speech/Resp) Filed: 08/01/2024 15:28 Note Text: Occupational Therapy Evaluation Summary SERVICE DATE: 08/01/2024 SERVICE TIME: 1428 to 1502 ROOM: [id number] DISCHARGE RECOMMENDATIONS Home OT Recommended Discharge Disposition Comments: Patient reports family is able to provide increased physical assist at home Anticipated Discharge Needs: Physical Assist at Home Physical Assist at Home for: Cleaning, Laundry, Self Care, Shopping, Transportation, Meals, Transfers ASSESSMENT Response to Therapy Interventions: Good Participation in Activities, Low Activity Tolerance Patient with limited activity tolerance, reports lightheaded/dizziness upon supine to sit and sit to stand. Education provided in concern for toileting at home in case of urgency. Recommendation in use of bedside commode to decrease risk of falls in case or urgency. PRECAUTIONS Fall Risk CURRENT HOSPITAL COURSE Abdominal pain. Imaging concerning for pancreatic necrosis vs gastric perforation, as well as possible cystic neoplasm at pancreas. Relevant Past Medical History: RA, chronic pain and opioid use, fibromyalgia HOME LIVING Patient Lives With: Family Assistance Available: Part-Time Entry To Home: Stairs Number Of Stairs Into Home: 3 Number Of Stairs To Bed/Bath: 0 Tub/Shower Type: tub shower with grab bars and chair Laundry: family completes Equipment Owned: Grab Bars- Shower, Shower Chair, Walker- Wheeled, Wheelchair- Manual, Hospital Bed, Rollator, Commode- Bedside PRIOR FUNCTIONAL LEVEL Required Assistance Assistance Required With: Cleaning, Laundry, Shopping, Meals Pt reports prior to current illness she was able to ambulate limited community distances with rollator. Was able to complete ADLs/self care on her own- daughter supervises showers, family assisted with IADLs. Patient reports she still drives, picks up her groceries. SUBJECTIVE Patient is agreeable to OT session COGNITION Responsiveness: Alert, Awake Follows Commands: 2-step Commands Executive Function Deficits: Judgement, Insight to Deficits THERAPY DIAGNOSIS Decreased activities of daily living (ADL) TREATMENT INTERVENTIONS Evaluation, Self Prison Management (09532) Timed Code Treatment (minutes): 13 Skilled Treatment Time (minutes): 28 $ Evaluation - Low (44925) Billed Units: 1 unit Self Prison Management (72590) Treatment Minutes: 13 $ Self Prison Management (49743) Billed Units: 1 unit Provided patient with opportunity to apply lotion sitting edge of bed to simulate balance and ROM necessary to complete bathing tasks. Education in use of long handle sponge for improved reach and decreased bending to manage abdominal and back pain. TRAINING AND EDUCATION PROVIDED Bed Mobility, Assistive Device Use, Discharge Planning, Expected Functional Level, Functional Mobility Involving ADLs, Lower Extremity Dressing, Energy Conservation, Role of Occupational Therapy, Transfer - Sit to Stand THERAPEUTIC SKILLS USED Activity Dosing, Assessment of Tolerance Including Vitals Response to Activity, Cuing Verbal, Physical Assist, Therapeutic Use of Self FUNCTIONAL STATUS Activities of Daily Living Assist Level Additional Information Feeding Independent Grooming Stand By Assistance Bathing Upper Body Minimal Assistance Bathing Lower Body Minimal Assistance Dressing Upper Body Set Up Dressing Lower Body Minimal Assistance Use of figure four technique to limit abdominal and back pain. Loss of balance edge of bed attempting to don right sock Toileting Stand By Assistance Mobility Assist Level Additional Information Bed Mobility Supine To Sit: Moderate Assistance Assist at trunk Sit To Supine: Stand By Assistance Sit to Stand Contact Guard Assistance Cues to push up from bed Stand to Sit Stand By Assistance Bed to Chair Toilet/Commode Shower Functional Mobility Contact Guard Assistance Functional Mobility Device: Wheeled Walker Pt tolerates steps to head of bed ROM ROM Limitation Comments: arthritic changes to hands STRENGTH WFL BALANCE Static Sitting Balance: Good Dynamic Sitting Balance: Good Static Standing Balance: Fair Dynamic Standing Balance: Fair GOALS Lower Body Bathing with: Supervision Lower Body Dressing with: Set Up Toilet Hygiene with: Modified Independent Toilet Transfer with: Modified Independent Tolerate (minutes of functional activity): 15 Functional Activity with: Supervision Rehab Potential: Good PLAN OT Frequency: 2 Times Per Week Treatment Interventions: Education, Self Care/Home Management, Energy Conservation Training, Functional Mobility Training, Balance Training SIGNATURE: ABDI Nolan/Linus PATIENT NAME: Amna Sequeira DATE: August 01, 2024 TIME: 3:18 PM Normal [facility] aPTT PPPon 08-01-2024 aPTT Coag (PPP) [Time] 78.0 s High 23.0-32.4 [facility] Comment on above: Order Comment: Speci men Type: BLOOD SPECIMEN Ordering Facility: [facility] Address: [address] [place] [address] Performed By: #### 3 040-3 #### [facility] CLIA [id number] 1 [place], [place] [id number] [place] [address] [place] aPTT Coag (PPP) [Time] 61.1 s High 23.0-32.4 [facility] Comment on above: Order Comment: Speci men Type: BLOOD SPECIMEN Ordering Facility: [facility] Address: [facility] [place] [address] Performed By: #### 1 4979-9 #### [facility] CLIA [id number] [address] [place] ANES POSTPROC EVALon 024 ANES POSTPROC EVAL HNO ID: [id number] Author: BRIE HODGE MD, PhD Service: Anesthesiology Author Type: Anesthesiologist Type: Anesthesia Postprocedure Evaluation Filed: 07/31/2024 16:23 Note Text: POST ANESTHESIA EVALUATION NOTE : 1955 Procedure Summary Date: 07/31/24 Room / Location: [facility] Anesthesia Start: 1428 Anesthesia Stop: 1445 Procedure: EGD DIAGNOSTIC Diagnosis: (Abnormal CT of the GI tract) Scheduled Providers: Yaya Howard MD Responsible Provider: Brie Hodge MD, PhD Anesthesia Type: MAC ASA Status: 3 Anesthesia Type: MAC Last Vitals Vitals Value Taken Time BP 102/76 07/31/24 1513 Temp 36.4 ?C (97.5 ?F) 07/31/24 1444 Pulse 85 07/31/24 1513 Resp 16 07/31/24 1513 SpO2 98 % 07/31/24 1513 Post Anesthesia Patient Status Patient Evaluation: PACU. PACU/ICU Patient Condition: stable. Anticipated Disposition: inpatient floor planned admission. Neurological Status: aware and responsive. Pulmonary Status: breathing comfortably on room air Airway Control: returned to baseline unsupported. Cardiovascular Status: stable. Pain Management: clinically adequate Postoperative Hydration: acceptable. Intraoperative Events: no significant anesthesia events Post Operative Nausea/Vomiting Status: no significant post operative nausea or vomiting Recommendation: further care per PACU/ICU/floor team. Other Remarks: Pt was awake and alert in PACU. Her speech was fluent and appropriate.. Anesthesia Observations No Documentation SIGNATURE: Brie Hodge MD, PhD PATIENT NAME: Amna Sequeira DATE: July 31, 2024 TIME: 4:22 PM CSN: [id number] Normal [facility] ANES PRE-OPon 07-31-2024 [facility] PRE-OP HNO ID: [id number] Author: BRIE HODGE MD, PhD Service: Anesthesiology Author Type: Anesthesiologist Type: Anesthesia Preprocedure Evaluation Filed: 07/31/2024 14:16 Note Text: ANESTHESIOLOGY DAY OF SURGERY NOTE : 1955 Procedure Information Date/Time: 07/31/24 1430 Scheduled providers: Yaya Howard MD Procedure: EGD DIAGNOSTIC Location: [facility] Estimated body mass index is 30.54 kg/m? as calculated from the following: Height as of this encounter: 162.6 cm (5' 4). Weight as of this encounter: 80.7 kg (177 lb 14.6 oz). Most recent hematocrit and potassium results: Hematocrit 31.9 07/31/2024 Potassium 3.2 07/31/2024 Relevant Problems GI (+) Gastric ulcer, acute with perforation and obstruction (HCC) Other (+) Rheumatoid arthritis in remission (HCC) I - PHYSICAL EVALUATION AIRWAY Patient intubated: No. Tracheostomy tube not present Mallampati: III. TM distance: >3 FB. Neck ROM: limited extension. Mouth opening: adequate. Short neck: no. Thick neck: no Microretrognathia/Microna gthia/Recessed Chin: No DENTAL Dental findings: edentulous. Additional comments: Pt removed her dentures, and they are in her possession in her room.. II - ANESTHESIA PLAN ASA Score: 3 Anesthetic Plan: MAC NPO Status: adequate Beta Ca Monitoring Plan Monitoring plan: standard ASA. Post Procedure Analgesic Plan Postoperative analgesic plan: multimodal analgesia. Informed Consent Anesthetic risks, benefits, alternatives, personnel and consent discussed: yes. Patient / Responsible Libertarian agrees to proceed: yes Patient / Surrogate agrees to blood products: Yes Potential Anesthesia issues that may suggest increased risk of complications or contraindication to planned procedure: none. Vitals Value Taken Time BP 124/91 07/31/24 1359 Pulse 91 07/31/24 1359 Resp 13 07/31/24 1359 Temp 36.8 ?C (98.3 ?F) 07/31/24 1359 SpO2 97 % 07/31/24 1359 Facility-Administered Medications as of 07/31/2024 Medication Dose Route Frequency - [COMPLETED] potassium chloride ER 40 mEq tab(s) (KLOR-CON) 40 mEq ORAL ONCE - [COMPLETED] calcium gluconate iv piggyback 2 g in NaCl (iso-osmotic) 100 mL 2 g INTRAVENOUS ONCE - [Transfer Hold] NaCl 0.9% iv flush bag 20 mL INTRAVENOUS PRN - lactated ringers iv infusion 5-30 mL/hr INTRAVENOUS CONTINUOUS - [Transfer Hold] fluconazole iv piggyback 800 mg in NaCl (iso-osmotic) 400 mL (DIFLUCAN) 800 mg INTRAVENOUS DAILY - [Transfer Hold] gabapentin 800 mg cap(s) (NEURONTIN) 800 mg ORAL q 12 H - [Transfer Hold] morphine 2 mg injection 2 mg INTRAVENOUS q 3 H PRN - [Transfer Hold] oxyCODONE IR 10 mg tab(s) (ROXICODONE) 10 mg ORAL q 4 H PRN - [Transfer Hold] methocarbamol 1,500 mg tab(s) (ROBAXIN) 1,500 mg ORAL BID 8A/BEDTIME - [Transfer Hold] ALPRAZolam 0.25 mg tab(s) (XANAX) 0.25 mg ORAL AT BEDTIME PRN - [Transfer Hold] montelukast 10 mg tab(s) (SINGULAIR) 10 mg ORAL AT BEDTIME - [Transfer Hold] levothyroxine (SYNTHROID) tab(s) 175 mcg 175 mcg ORAL DAILY (6 AM) - [Transfer Hold] lactated ringers iv infusion 125 mL/hr INTRAVENOUS CONTINUOUS - [Transfer Hold] acetaminophen 975 mg tab(s) (TYLENOL) 975 mg ORAL QID - [Transfer Hold] iv contrast (radiology procedure) INTRAVENOUS DIRECTED PRN And - [] enteric contrast (radiology procedure) ORAL DIRECTED PRN - [Transfer Hold] heparin iv infusion 25,000 units in NaCl 0.45% 250 mL STANDARD NOMOGRAM 0-3,000 Units/hr INTRAVENOUS CONTINUOUS And - [Transfer Hold] heparin RATE CHANGE bolus 1,000-10,000 Units for subtherapeutic PTTAC results 1,000-10,000 Units INTRAVENOUS PRN - [COMPLETED] heparin nomogram - NO INITIAL BOLUS OTHER ONCE (heparin bolus) - [Transfer Hold] pantoprazole 40 mg injection (PROTONIX) 40 mg INTRAVENOUS BID AC (0600/1600) - [Transfer Hold] piperacillin-tazobactam iv piggyback 3.375 g in dextrose (iso-osmotic) 50 mL (ZOSYN) 3.375 g INTRAVENOUS q 6 H - [Transfer Hold] sucralfate 1 g tab(s) (CARAFATE) 1 g ORAL AC and HS - [Transfer Hold] ipratropium 0.02 % 0.5 mg (ATROVENT) 0.5 mg INHALATION QID - [Transfer Hold] prochlorperazine 5 mg injection (COMPAZINE) 5 mg INTRAVENOUS q 6 H PRN Or - [Transfer Hold] prochlorperazine 5 mg tab(s) (COMPAZINE) 5 mg ORAL q 6 H PRN - [Transfer Hold] mometasone-formoterol 200-5 mcg/actuation 2 Puff inhaler (DULERA) 2 Puff INHALATION BID - [COMPLETED] vancomycin 1.25 g in NaCl 0.9% 250 mL (VANCOCIN) 0.015 g/kg/dose INTRAVENOUS ONCE Outpatient Medications as of 07/31/2024 Medication Sig - levothyroxine 175 mcg tablet Take 175 mcg by mouth daily before breakfast. - GABAPENTIN 300 mg capsule twice daily. - tiotropium 18 mcg INHALATION inhalation capsule Inhale 1 capsule as instructed once daily. - montelukast (SINGULAIR) 10 mg ORAL tablet Take 1 tablet by mouth daily at bedtime. - methocarbamol 750 mg ORAL tablet Take 1 tablet by mouth twice daily. - tofacitinib (XELJANZ) 5 mg tab Take by mouth twice (more content not included)... Normal [facility] Basic metabolic 2000 panelon 07-31-2024 Anion gap [Moles/Vol] 16 mmol/L High 8-15 [facility] Comment on above: Order Comment: Speci men Type: BLOOD SPECIMEN Ordering Facility: [facility] Address: [address] [place] [address] Performed By: #### 3 040-3 #### [facility] CLIA [id number] 1 [place] [address] [place] Calcium [Mass/Vol] 7.8 mg/dL Low 8.5-10.2 [facility] Comment on above: Order Comment: Speci men Type: BLOOD SPECIMEN Ordering Facility: [facility] Address: [address] [place] [address] Performed By: #### 3 040-3 #### [facility] CLIA [id number] [address] Chloride [Moles/Vol] 99 mmol/L Normal 98-107 [facility] Comment on above: Order Comment: Speci men Type: BLOOD SPECIMEN Ordering Facility: [facility] Address: [address] [place] [address] Performed By: #### 3 040-3 #### [facility] CLIA [id number] [address] CO2 [Moles/Vol] 18 mmol/L Low 22-30 [facility] Comment on above: Order Comment: Speci men Type: BLOOD SPECIMEN Ordering Facility: [facility] Address: [address] [place] [address] Performed By: #### 3 040-3 #### [facility] CLIA [id number] [address] Creatinine [Mass/Vol] 0.62 mg/dL Normal 0.58-0.96 [facility] Comment on above: Order Comment: Speci men Type: BLOOD SPECIMEN Ordering Facility: [facility] Address: [address] [place] [address] Performed By: #### 3 040-3 #### [facility] CLIA [id number] [address] Creatinine and Glomerular filtration rate.predicted panel (S/P/Bld) 97 mL/min/1.73m??? Normal >=60 [facility] Comment on above: Order Comment: Speci men Type: BLOOD SPECIMEN Ordering Facility: [facility] Address: [address] [place] [address] Result Comment: Gisela mated Glomerular Filtration Rate (eGFR) is calculated using the 2020 CKD-EPI creatinine equation. This equation utilizes serum creatinine, sex, and age as parameters. The creatinine assay has traceable calibration to isotope dilution-mass spectrometry. Refer to KDIGO guidelines for clinical interpretation. In patients with unstable renal function, e.g. those with acute kidney injury, the eGFR may not accurately reflect actual GFR. Performed By: #### 3 040-3 #### [facility] CLIA [id number] [address] [place] [address] [place] Glucose [Mass/Vol] 61 mg/dL Low 74-99 [facility] Comment on above: Order Comment: Monika dye Type: BLOOD SPECIMEN Ordering Facility: [facility] Address: [address] [place] [address] Result Comment: The [place] Diabetes [employer] (ADA) provides guidance for cutoff values for fasting glucose and random glucose. The ADA defines fasting as no caloric intake for at least 8 hours. Fasting plasma glucose results between 100 to 125 mg/dL indicate increased risk for diabetes (prediabetes). Fasting plasma glucose results greater than or equal to 126 mg/dL meet the criteria for diagnosis of diabetes. In the absence of unequivocal hyperglycemia, results should be confirmed by repeat testing. In a patient with classic symptoms of hyperglycemia or hyperglycemic crisis, random plasma glucose results greater than or equal to 200 mg/dL meet the criteria for diagnosis of diabetes. Reference: Standards of Medical Care in Diabetes 2016, [place] [employer]. Diabetes Care. 2016.39(Suppl 1). Performed By: #### 3 040-3 #### [facility] CLIA [id number] [address] [place] [address] [place] Potassium [Moles/Vol] 3.2 mmol/L Low 3.7-5.1 [facility] Comment on above: Order Comment: Monika dye Type: BLOOD SPECIMEN Ordering Facility: [facility] Address: [address] [place] [address] Performed By: #### 3 040-3 #### [facility] CLIA [id number] [address] [place] [address] [place] Sodium [Moles/Vol] 133 mmol/L Low 136-144 [facility] Comment on above: Order Comment: Monika men Type: BLOOD SPECIMEN Ordering Facility: [facility] Address: [address] [place] [address] Performed By: #### 3 040-3 #### [facility] CLIA [id number] [address] [place] [address] [place] Urea nitrogen [Mass/Vol] 6 mg/dL Low 7-21 [facility] Comment on above: Order Comment: Speci men Type: BLOOD SPECIMEN Ordering Facility: [facility] Address: [address] [place] [address] Performed By: #### 3 040-3 #### [facility] CLIA [id number] [address] CBC panel Auto (Bld)on 07-31 Erythrocyte distribution width (RBC) [Ratio] 21.6 % High 11.5-15.0 [facility] Comment on above: Order Comment: Speci men Type: BLOOD SPECIMEN Ordering Facility: [facility] Address: [address] [place] [address] Performed By: #### 3 040-3 #### [facility] CLIA [id number] [address] Hematocrit (Bld) [Volume fraction] 31.9 % Low 36.0-46.0 [facility] Comment on above: Order Comment: Speci men Type: BLOOD SPECIMEN Ordering Facility: [facility] Address: [address] [place] [address] Performed By: #### 3 040-3 #### [facility] CLIA [id number] [address] Hemoglobin (Bld) [Mass/Vol] 8.9 g/dL Low 11.5-15.5 [facility] Comment on above: Order Comment: Speci men Type: BLOOD SPECIMEN Ordering Facility: [facility] Address: [address] [place] [address] Performed By: #### 3 040-3 #### [facility] CLIA [id number] [address] MCH (RBC) [Entitic mass] 22.6 pg Low 26.0-34.0 [facility] Comment on above: Order Comment: Speci men Type: BLOOD SPECIMEN Ordering Facility: [facility] Address: [address] [place] [address] Performed By: #### 3 040-3 #### [facility] CLIA [id number] [address] MCHC (RBC) [Mass/Vol] 27.9 g/dL Low 30.5-36.0 [facility] Comment on above: Order Comment: Speci men Type: BLOOD SPECIMEN Ordering Facility: [facility] Address: [address] [place] [address] Performed By: #### 3 040-3 #### [facility] CLIA [id number] [address] [address] MCV (RBC) [Entitic vol] 81.0 fL Normal 80.0-100.0 [facility] Comment on above: Order Comment: Speci men Type: BLOOD SPECIMEN Ordering Facility: [facility] Address: [address] [place] [address] Performed By: #### 3 040-3 #### [facility] CLIA [id number] [address] Nucleated RBC (Bld) [#/Vol] 10*3/uL Normal <0.01 [facility] Comment on above: Order Comment: Speci men Type: BLOOD SPECIMEN Ordering Facility: [facility] Address: [address] [place] [address] Performed By: #### 3 040-3 #### [facility] CLIA [id number] [address] Platelet mean volume (Bld) [Entitic vol] 8.9 fL Low 9.0-12.7 [facility] Comment on above: Order Comment: Speci men Type: BLOOD SPECIMEN Ordering Facility: [facility] Address: [address] [place] [address] Performed By: #### 3 040-3 #### [facility] CLIA [id number] [address] Platelets (Bld) [#/Vol] 576 10*3/uL High 150-400 [facility] Comment on above: Order Comment: Speci men Type: BLOOD SPECIMEN Ordering Facility: [facility] Address: [address] [place], [place] [address] Performed By: #### 3 040-3 #### [facility] CLIA [id number] [address] [place] RBC (Bld) [#/Vol] 3.94 10*6/uL Normal 3.90-5.20 [facility] Comment on above: Order Comment: Speci men Type: BLOOD SPECIMEN Ordering Facility: [facility] Address: [address] [place] [address] Performed By: #### 3 040-3 #### [facility] CLIA [id number] [address] [place] WBC (Bld) [#/Vol] 10.01 10*3/uL Normal 3.70-11.00 [facility] Comment on above: Order Comment: Speci men Type: BLOOD SPECIMEN Ordering Facility: [facility] Address: [address] [place] [address] Performed By: #### 3 040-3 #### [facility] CLIA [id number] [address] CONSULTon 07-31-2024 CONSULT HNO ID: [id number] Author: BELEN MENARD APRN.CNP Service: Gastroenterology Author Type: Nurse Practitioner Type: Consults Filed: 07/31/2024 13:47 Note Text: INITIAL CONSULT GASTROENTEROLOGY SERVICE DATE: 07/31/2024 SERVICE TIME: 1:37 PM Consulting Service: Gastroenterology Chief Complaint: Abdominal pain Opinion/advice regarding: Gastric perforation vs pancreatic necrosis Subjective HPI: This is a 69 year old female with a past medical history of of fibromyalgia, DVTs (on warfarin), hypothyroidism and RA who presents to [facility] as transfer from [facility]. Presented to [facility] on 07/28/2024. On 07/29 lab as follows: Na 137, Creatinine 0.63, WBC 16.36, Hgb 9.1, Plt 565. CT A/P 07/29/2024 showed 2 x 3 x 3 cm craniocaudal fluid density structure contiguous with the posterior wall of the distal stomach extending caudal anterior head-neck junction of the pancreas with a small focus of intracollection air. 2.7 x 3.5 x 3.5 cm craniocaudal air-containing rim-enhancing fluid density structure within the lesser sac and extending over the anterior and inferior body of the pancreas. Finding is contiguous with the stomach and proximal small bowel at the level of the ligament of Treitz. There is no appreciable bowel contrast material within either fluid collection. Differential considerations include abscess, potential walled off perforation or walled off necrosis. 1.3 x 0.8 cm fluid density structure within the posterior neck-body junction of the pancreas. Differential considerations include cystic neoplasm. HPB surgery following. GI consulted for evaluation of gastric perforation vs pancreatic necrosis. Upon assessment, patient resting in bed. Patient complains of ongoing abdominal pain for months. Reports endorsing nausea and emesis recently after eating without visible blood noted. Takes Coumadin at home, currently on heparin drip. Reports taking multiple daily advil for arthritis since last year. Denies hematochezia or melena. I PAST MEDICAL HISTORY Diagnosis Date Acid reflux Anxiety Chronic pain back,hips, and knees COPD (chronic obstructive pulmonary disease) ([facility]) DVT (deep venous thrombosis) ([facility]) 2005 IBS (irritable bowel syndrome) Insomnia RA (rheumatoid arthritis) ([facility]) PAST SURGICAL HISTORY Procedure Laterality Date CARPAL TUNNEL 2003 right COLONOSCOPY 2007 HYSTERECTOMY HX 1992 PAST SURGICAL HISTORY OF 01/2013 Rt total knee replacement PAST SURGICAL HISTORY OF 2011 Rt hip placement THYROIDECTOMY 09/09/13 TONSILLECTOMY HX FAMILY HISTORY Problem Relation Age of Onset Cancer Brother liver Diabetes Father Diabetes Sister Diabetes Brother Heart Maternal Grandmother Stroke Father Social History Tobacco Use Smoking status: Every Day Current packs/day: 1.00 Average packs/day: 1 pack/day for 20.0 years (20.0 ttl pk-yrs) Types: Cigarettes Substance Use Topics Alcohol use: No MEDICATIONS: Prior to Admission Medications: levothyroxine 175 mcg tabletTake 175 mcg by mouth daily before breakfast.Disp: Rfl: GABAPENTIN 300 mg capsuletwice daily.Disp: Rfl: tiotropium 18 mcg INHALATION inhalation capsuleInhale 1 capsule as instructed once daily.Disp: Rfl: 0 montelukast (SINGULAIR) 10 mg ORAL tabletTake 1 tablet by mouth daily at bedtime.Disp: Rfl: 0 methocarbamol 750 mg ORAL tabletTake 1 tablet by mouth twice daily.Disp: Rfl: 0 tofacitinib (XELJANZ) 5 mg tabTake by mouth twice daily.Disp: Rfl: Sodium,Potassium,ANDMag Sulfates (SUPREP) 17.5-3.13-1.6 gram solrTake according to printed instructions given by office.Disp: 1 BottleRfl: 0 fentaNYL (DURAGESIC) 75 mcg/hrApply 1 Patch as directed every 72 hours.Disp: Rfl: fluticasone-salmeterol (ADVAIR DISKUS) 100-50 mcg/dose INHALATION DsDvInhale 1 Puff as instructed twice daily. RINSE AND GARGLE MOUTH WITH WATER AFTER EACH USE.Disp: Rfl: 0 albuterol 90 mcg/Actuation INHALATION AeroInhale 2 Puffs as instructed four times daily as needed. FOR WHEEZING AND SHORTNESS OF BREATH.Disp: Rfl: 0 Methotrexate Sodium (METHOTREXATE, ANTI-RHEUMATIC,) 2.5 mg ORAL tabletTake 3 tablets by mouth once each week.Disp: Rfl: 0 hydroxychloroquine (PLAQUENIL) 200 mg ORAL tabletTake by mouth once daily.Disp: Rfl: 0 folic acid 1 mg ORAL tabletTake 1 tablet by mouth once daily.Disp: Rfl: 0 omeprazole (PRILOSEC) 20 mg ORAL capsuleTake 1 capsule by mouth once daily.Disp: Rfl: 0 sertraline (ZOLOFT) 50 mg ORAL tabletTake 1 tablet by mouth three times daily.Disp: Rfl: 0 zolpidem (AMBIEN) 10 mg ORAL TabTake 1 tablet by mouth at bedtime as needed. FOR INSOMNIADisp: Rfl: 0 warfarin (COUMADIN) 5 mg ORAL tabletTake 1 tablet by mouth. Twice per weekDisp: Rfl: 0 warfarin 2.5 mg ORAL tabletTake 1 tablet by mouth. Take 1 tablet 5 times per weekDisp: Rfl: 0 Current Facility-Administered Medications Medication Dose Route Frequency montelukast 10 mg tab(s) (SINGULAIR) 10 mg ORAL AT BEDTIME levothy (more content not included)... Normal [facility] Hepatic function 2000 panelo n 07-31-2024 Albumin [Mass/Vol] 2.0 g/dL Low 3.9-4.9 [facility] Comment on above: Order Comment: Speci men Type: BLOOD SPECIMEN Ordering Facility: [facility] Address: [address] [place] [address] [place] [id number] Performed By: #### 1 6175-9 #### [facility] CLIA [id number] [address] ALP [Catalytic activity/Vol] 88 U/L Normal 34-123 [facility] Comment on above: Order Comment: Speci men Type: BLOOD SPECIMEN Ordering Facility: [facility] Address: [address] [place] [address] Performed By: #### 1 4979-9 #### [facility] CLIA [id number] [address] [place] ALT With P-5'-P [Catalytic activity/Vol] 6 U/L Low 7-38 [facility] Comment on above: Order Comment: Speci men Type: BLOOD SPECIMEN Ordering Facility: [facility] Address: [address] [place] [address] Performed By: #### 1 4979-9 #### [facility] CLIA [id number] [address] AST With P-5'-P [Catalytic activity/Vol] 14 U/L Normal 13-35 [facility] Comment on above: Order Comment: Speci men Type: BLOOD SPECIMEN Ordering Facility: [facility] Address: [address] [place] [address] Performed By: #### 1 4979-9 #### [facility] CLIA [id number] [address] Bilirubin [Mass/Vol] 0.4 mg/dL Normal 0.2-1.3 [facility] Comment on above: Order Comment: Speci men Type: BLOOD SPECIMEN Ordering Facility: [facility] Address: [address] [place] [address] Performed By: #### 1 4979-9 #### [facility] CLIA [id number] [address] Bilirubin.conjugated [Mass/Vol] mg/dL Normal <0.2 [facility] Comment on above: Order Comment: Speci men Type: BLOOD SPECIMEN Ordering Facility: [facility] Address: [address] [place] [address] Performed By: #### 1 4979-9 #### [facility] CLIA [id number] 1 [place] [address] [place] Protein [Mass/Vol] 5.7 g/dL Low 6.3-8.0 [facility] Comment on above: Order Comment: Speci men Type: BLOOD SPECIMEN Ordering Facility: [facility] Address: [address] [place], [place] [address] Performed By: #### 1 4979-9 #### [facility] CLIA [id number] 1 [place] [address] [place] NURSING PROGon 07-31-2024 NURSING PROG HNO ID: [id number] Author: TELLO DENNEY RN Service: Nursing Author Type: Registered Nurse Type: Nursing Progress Note Filed: 07/31/2024 15:16 Note Text: Attempted to call report to floor RN. On hold for 10 minutes. Called back and left message for floor RN to call this nurse back. Normal [facility] THERAPY NTon 07-31-2024 THERAPY NT HNO ID: [id number] Author: GM SALDAÑA OTR/Linus Service: Occupational Therapy Author Type: Occupational Therapist Type: Therapy (PT/OT/Speech/Resp) Filed: 07/31/2024 14:33 Note Text: OCCUPATIONAL THERAPY MISSED VISIT SERVICE DATE: 07/31/2024 SERVICE TIME: 1433 ROOM: [facility]) Patient not seen due to Test / Procedure. SIGNATURE: ABDI Garcia/Linus PATIENT NAME: Amna Sequeira DATE: July 31, 2024 TIME: 2:33 PM Normal [facility] THERAPY NT HNO ID: [id number] Author: LISSETTE MINAYA, PT Service: Physical Therapy Author Type: Physical Therapist Type: Therapy (PT/OT/Speech/Resp) Filed: 07/31/2024 13:05 Note Text: Physical Therapy Evaluation Summary SERVICE DATE: 07/31/2024 SERVICE TIME: 1054 to 1130 ROOM: [place] [address] PT 6 Clicks Score: 12 DISCHARGE RECOMMENDATIONS Subacute/SNF Recommended Discharge Disposition Due to: Functional deficits requiring ongoing therapy service prior to discharge home., Balance deficits, Functional status decline, Requires multiple therapy disciplines ASSESSMENT Response to Therapy Interventions: Good Participation in Activities Pt is below her functional baseline. She is typically able to walk limited community distances with rollator at home, today presents as deconditioned and weak, with decreased tolerance to standing. She required overall min-mod A to advance out of bed and take a few steps to chair. She expressed significant lightheadedness after sitting up and standing; after transfer to chair BP 154/88. Improves after a couple minutes. Pt expresses hope to go home with family at d/c, emphasized importance of mobilizing frequently to improve her activity tolerance and progress to more functional ambulation distance. Encouraged to get up to chair and brought bedside commode to room for toileting. Will continue to follow for ongoing PT services while hospitalized. PRECAUTIONS Fall Risk CURRENT HOSPITAL COURSE Abdominal pain. Imaging concerning for pancreatic necrosis vs gastric perforation, as well as possible cystic neoplasm at pancreas. Relevant Past Medical History: RA, chronic pain and opioid use, fibromyalgia HOME LIVING Patient Lives With: Family Assistance Available: Part-Time Entry To Home: Stairs Number Of Stairs Into Home: 3 Number Of Stairs To Bed/Bath: 0 Tub/Shower Type: tub shower with grab bars and chair Equipment Owned: Grab Bars- Shower, Shower Chair, Walker- Wheeled, Wheelchair- Manual, Hospital Bed, Rollator PRIOR FUNCTIONAL LEVEL Required Assistance Assistance Required With: Cleaning, Laundry, Shopping, Transportation, Meals Pt reports prior to current illness she was able to ambulate limited community distances with rollator. Was able to complete ADLs/self care on her own, family assisted with IADLs. SUBJECTIVE Pt agreeable to PT, frustrated she feels she doesn't have a clear medical plan. THERAPY DIAGNOSIS Reduced mobility-other TREATMENT INTERVENTIONS Evaluation, Therapeutic Activity (79381) $ Evaluation-Moderate (44263) Billed Units: 1 unit Therapeutic Activity (70105) Treatment Minutes: 10 $ Therapeutic Activity (68272) Billed Units: 1 unit Facilitated mobility as described in grid below. Provided skilled monitoring of vitals signs with mobility, discussed results with pt. Emphasized importance of continuing to mobilize with staff to reach her goal of homegoing at d/c. Timed Code Treatment (minutes): 10 Skilled Treatment Time (minutes): 25 TRAINING AND EDUCATION PROVIDED Anatomy and Impact on Deficits, Assistive Device Use, Bed Mobility THERAPEUTIC SKILLS USED Cues for Sequencing/Proper Technique for Activity, Cuing Tactile, Cuing Verbal, Movement Facilitation, Muscle Activation Facilitation, Physical Assist, Assessment of Tolerance Including Vitals Response to Activity FUNCTIONAL STATUS Bed Mobility Supine To Sit: Moderate Assistance, Additional Information cued to bring legs toward edge of bed, use of arms to upright trunk; initially requiring min A for trunk control, progresses to SBA Transfers Sit To Stand: Minimal Assistance, Additional Information required a few attempts, cued to scoot forward to edge with feet underneath, lean forward and push from bed with hand; dizzy in standing, needed extra time to adjust to upright before taking steps to chair; BP 154/88, recovers after sitting a couple minutes Stand To Sit: Minimal Assistance, Additional Information cued to back up fully to surface with legs touching, reach back and sit slowly Bed to Chair Moderate Assistance, Additional Information Bed To Chair Transfer Type: Stepping Bed To Chair Transfer Equipment: Wheeled Walker 1x significant loss of balance requiring assist to recover; tactile cues at hips for turning Gait Moderate Assistance, Additional Information 1x significant loss of balance requiring significant assist to recover Gait Device: Wheeled Walker General Deviations/Observations: Karina decreased, Lateral sway increased, Loss of Balance, Step length decreased Gait Distance (feet): 2 Stairs ROM WFL STRENGTH Right Lower Extremity Strength Comments: 4/5 throughout Left Lower Extremity Strength Comments: 4/5 throughout BALANCE Static Standing Balance: Fair Dynamic Standing Balance: Poor GOALS Able to Perform HEP with: Independent Transfer Supine to/from Sit with: Stand By Assistance Transfer Sit to/from Stand with (more content not included)... Normal [facility] Upper GI endoscopyon 024 Upper GI endoscopy [facility] Gastrointestinal Endoscopy Patient Name: Amna Sequeira Procedure Date: 07/31/2024 2:22 PM Date of : 1955 Admit Type: Inpatient Room: [place] [address] Gender: Female Note Status: Finalized Attending MD: Yaya Howard MD, [id number] Procedure: Upper GI endoscopy Indications: Abnormal CT of the GI tract Providers: Yaya Howard MD Patient Profile: Refer to note in patient chart for documentation of history and physical. Referring Physician: Yaya Howard MD (Referring MD) Medicines: Monitored Anesthesia Care Complications: No immediate complications. Procedure: Pre-Anesthesia Assessment: - Prior to the procedure, a History and Physical was performed, and patient medications and allergies were reviewed. The patient is competent. The risks and benefits of the procedure and the sedation options and risks were discussed with the patient. All questions were answered and informed consent was obtained. Patient identification and proposed procedure were verified by the physician in the pre-procedure area. Mental Status Examination: alert and oriented. Airway Examination: normal oropharyngeal airway and neck mobility. Respiratory Examination: clear to auscultation. CV Examination: normal. Prophylactic Antibiotics: The patient does not require prophylactic antibiotics. Prior Anticoagulants: The patient has taken no anticoagulant or antiplatelet agents. ASA Grade Assessment: II - A patient with mild systemic disease. After reviewing the risks and benefits, the patient was deemed in satisfactory condition to undergo the procedure. The anesthesia plan was to use monitored anesthesia care (MAC). Immediately prior to administration of medications, the patient was re-assessed for adequacy to receive sedatives. The heart rate, respiratory rate, oxygen saturations, blood pressure, adequacy of pulmonary ventilation, and response to care were monitored throughout the procedure. The physical status of the patient was re-assessed after the procedure. After obtaining informed consent, the endoscope was passed under direct vision. Throughout the procedure, the patient's blood pressure, pulse, and oxygen saturations were monitored continuously. The Endoscope was introduced through the mouth, and advanced to the fourth part of duodenum. I was present and participated during the entire procedure, including non-acosta portions, and during the administration and monitoring of Moderate Sedation. The upper GI endoscopy was accomplished without difficulty. The patient tolerated the procedure well. The procedure was determined to be ASGE Complexity Level 2. Moderate Sedation: An independent trained observer was present and continuously monitored the patient. An independent trained observer was present and continuously monitored the patient. Exam was performed under monitored anesthesia care (MAC) Findings: A small hiatal hernia was present. The entire examined stomach was normal. A single localized, 4 mm erosion without bleeding was found in the fourth portion of the duodenum. Estimated Blood Loss: Estimated blood loss: none. Impression: - Small hiatal hernia. - Normal stomach. - Erosive duodenopathy without bleeding. isolated area in d4 not ulcerated no bleeding impingemnt externally probably from pancreatic fluid collection - No specimens collected. Recommendation: - [facility] for [facility] care. - Resume regular diet today. - Continue present medications. - Observe patient's clinical course. - Refer to a surgeon today. - Perform CT scan (computed tomography) of the abdomen with contrast tomorrow. ct with pancreas prtocol hold off eus for now - The findings and recommendations were discussed with the patient's family. - Continue heparin at prior dose. Refer to primary physician for further adjustment of therapy. Procedure Code(s): --- Professional --- 21092, Esophagogastroduodenoscop y, flexible, transoral; diagnostic, including collection of specimen(s) by brushing or washing, when performed (separate procedure) --- Technical --- 20611, Esophagogastroduodenoscop y, flexible, transoral; diagnostic, including collection of specimen(s) by brushing or washing, when performed (separate procedure) Diagnosis Code(s): --- Professional --- K44.9, Diaphragmatic hernia without obstruction or gangrene K31.89, Other diseases of stomach and duodenum R93.3, Abnormal findings on diagnostic imaging of other parts of digestive tract --- Technical --- K44.9, Diaphragmatic hernia without obstruction or gangrene K31.89, Other diseases of stomach and duodenum R93.3, Abnormal findings on diagnostic imaging of other parts of digestive tract CPT copyright 2020 [employer]. All rights reserved. The codes documented (more content not included)... Normal [facility] aPTT PPPon 07-31-2024 aPTT Coag (PPP) [Time] 113.7 s High 23.0-32.4 [facility] Comment on above: Order Comment: Monika dye Type: BLOOD SPECIMEN Ordering Facility: [facility] Address: [address] [place] [address] Performed By: #### 1 4979-9 #### [facility] CLIA [id number] [address] [place] [address] [place] aPTT Coag (PPP) [Time] 42.4 s High 23.0-32.4 [facility] Comment on above: Order Comment: Monika dye Type: BLOOD SPECIMENOrdering Facility: [facility] Address: [address] [place] [address] Performed By: #### 1 4979-9 ####[facility] [id number] [address] aPTT Coag (PPP) [Time] 112.6 s High 23.0-32.4 [facility] Comment on above: Order Comment: Speci men Type: BLOOD SPECIMEN Ordering Facility: [facility] Address: [address] [place] [address] Performed By: #### 1 4979-9 #### [facility] CLIA [id number] [address] aPTT Coag (PPP) [Time] 132.4 s High 23.0-32.4 [facility] Comment on above: Order Comment: Speci men Type: BLOOD SPECIMENOrdering Facility: [facility] Address: [address] [place] [address] Performed By: #### 1 4979-9 ####[facility] [id number] [address] [place] Basic metabolic 2000 panelon 07-30-2024 Anion gap [Moles/Vol] 17 mmol/L High 8-15 [facility] Comment on above: Order Comment: Speci men Type: BLOOD SPECIMEN Ordering Facility: [facility] Address: [address] [place] [address] Performed By: #### 1 4979-9 #### [facility] CLIA [id number] [address] [place] Calcium [Mass/Vol] 7.7 mg/dL Low 8.5-10.2 [facility] Comment on above: Order Comment: Speci men Type: BLOOD SPECIMEN Ordering Facility: [facility] Address: [address] [place] [address] Performed By: #### 1 4979-9 #### [facility] CLIA [id number] [address] Chloride [Moles/Vol] 99 mmol/L Normal 98-107 [facility] Comment on above: Order Comment: Speci men Type: BLOOD SPECIMEN Ordering Facility: [facility] Address: [address] [place] [address] Performed By: #### 1 4979-9 #### [facility] CLIA [id number] [address] [place] CO2 [Moles/Vol] 20 mmol/L Low 22-30 [facility] Comment on above: Order Comment: Speci men Type: BLOOD SPECIMEN Ordering Facility: [facility] Address: [address] [place] [address] Performed By: #### 1 4979-9 #### [facility] CLIA [id number] [address] [place] Creatinine [Mass/Vol] 0.60 mg/dL Normal 0.58-0.96 [facility] Comment on above: Order Comment: Speci men Type: BLOOD SPECIMEN Ordering Facility: [facility] Address: [address] [place] [address] Performed By: #### 1 4979-9 #### [facility] CLIA [id number] [address] Creatinine and Glomerular filtration rate.predicted panel (S/P/Bld) 97 mL/min/1.73m??? Normal >=60 [facility] Comment on above: Order Comment: Speci men Type: BLOOD SPECIMEN Ordering Facility: [facility] Address: [address] [place] [address] Result Comment: [place]isela mated Glomerular Filtration Rate (eGFR) is calculated using the 2020 CKD-EPI creatinine equation. This equation utilizes serum creatinine, sex, and age as parameters. The creatinine assay has traceable calibration to isotope dilution-mass spectrometry. Refer to KDIGO guidelines for clinical interpretation. In patients with unstable renal function, e.g. those with acute kidney injury, the eGFR may not accurately reflect actual GFR. Performed By: #### 1 4979-9 #### [facility] CLIA [id number] [address] [place] Glucose [Mass/Vol] 58 mg/dL Low 74-99 [facility] Comment on above: Order Comment: Monika dye Type: BLOOD SPECIMEN Ordering Facility: [facility] Address: [address] [place] [address] Result Comment: The [place] [employer] (ADA) provides guidance for cutoff values for fasting glucose and random glucose. The ADA defines fasting as no caloric intake for at least 8 hours. Fasting plasma glucose results between 100 to 125 mg/dL indicate increased risk for diabetes (prediabetes). Fasting plasma glucose results greater than or equal to 126 mg/dL meet the criteria for diagnosis of diabetes. In the absence of unequivocal hyperglycemia, results should be confirmed by repeat testing. In a patient with classic symptoms of hyperglycemia or hyperglycemic crisis, random plasma glucose results greater than or equal to 200 mg/dL meet the criteria for diagnosis of diabetes. Reference: Standards of Medical Care in Diabetes 2016, [place] [employer]. Diabetes Care. 2016.39(Suppl 1). Performed By: #### 1 4979-9 #### [facility] CLIA [id number] [address] [place] [address] [place] Potassium [Moles/Vol] 3.7 mmol/L Normal 3.7-5.1 [facility] Comment on above: Order Comment: Monika dye Type: BLOOD SPECIMEN Ordering Facility: [facility] Address: [address] [place] [address] Performed By: #### 1 4979-9 #### [facility] CLIA [id number] [address] [place] Sodium [Moles/Vol] 136 mmol/L Normal 136-144 [facility] Comment on above: Order Comment: Isabelai men Type: BLOOD SPECIMEN Ordering Facility: [facility] Address: [address] [place] [address] Performed By: #### 1 4979-9 #### [facility] CLIA [id number] [address] [place] [address] [place] Urea nitrogen [Mass/Vol] 7 mg/dL Normal 7-21 [facility] Comment on above: Order Comment: Isabelai men Type: BLOOD SPECIMEN Ordering Facility: [facility] Address: [address] [place] [address] Performed By: #### 1 4979-9 #### [facility] CLIA [id number] [address] [place] [facility] CBC panel Auto (Bld)on 07-30 Erythrocyte distribution width (RBC) [Ratio] 21.3 % High 11.5-15.0 [facility] Comment on above: Order Comment: Speci men Type: BLOOD SPECIMENOrdering Facility: [facility] Address: [address] [place] [address] Performed By: #### 5 8410-2 ####[facility] [id number] [address] Hematocrit (Bld) [Volume fraction] 29.7 % Low 36.0-46.0 [facility] Comment on above: Order Comment: Speci men Type: BLOOD SPECIMENOrdering Facility: [facility] Address: [address] [place] [address] Performed By: #### 5 8410-2 ####[facility] [id number] [address] Hemoglobin (Bld) [Mass/Vol] 8.8 g/dL Low 11.5-15.5 [facility] Comment on above: Order Comment: Speci men Type: BLOOD SPECIMENOrdering Facility: [facility] Address: [address] [place] [address] Performed By: #### 5 8410-2 ####[facility] [id number] [address] [place] [facility] MCH (RBC) [Entitic mass] 23.2 pg Low 26.0-34.0 [facility] Comment on above: Order Comment: Speci men Type: BLOOD SPECIMENOrdering Facility: [facility] Address: [address] [place] [address] Performed By: #### 5 8410-2 ####[facility] [id number] [address] [place] MCHC (RBC) [Mass/Vol] 29.6 g/dL Low 30.5-36.0 [facility] Comment on above: Order Comment: Speci men Type: BLOOD SPECIMENOrdering Facility: [facility] Address: [address] [place] [address] Performed By: #### 5 8410-2 ####[facility] [id number] [address] [place] MCV (RBC) [Entitic vol] 78.2 fL Low 80.0-100.0 [facility] Comment on above: Order Comment: Speci men Type: BLOOD SPECIMENOrdering Facility: [facility] Address: [address] [place] [address] Performed By: #### 5 8410-2 ####[facility] [id number] [address] [place] Nucleated RBC (Bld) [#/Vol] 10*3/uL Normal <0.01 [facility] Comment on above: Order Comment: Speci men Type: BLOOD SPECIMENOrdering Facility: [facility] Address: [address] [place] [address] Performed By: #### 5 8410-2 ####[facility] [id number] [address] [place] Platelet mean volume (Bld) [Entitic vol] 9.2 fL Normal 9.0-12.7 [facility] Comment on above: Order Comment: Speci men Type: BLOOD SPECIMENOrdering Facility: [facility] Address: [address] [place] [address] Performed By: #### 5 8410-2 ####[facility] [id number] [address] [place] Platelets (Bld) [#/Vol] 548 10*3/uL High 150-400 [facility] Comment on above: Order Comment: Speci men Type: BLOOD SPECIMENOrdering Facility: [facility] Address: [address] [place] [address] Performed By: #### 5 8410-2 ####[facility] [id number] [address] [place] [facility] RBC (Bld) [#/Vol] 3.80 10*6/uL Low 3.90-5.20 [facility] Comment on above: Order Comment: Monika dye Type: BLOOD SPECIMENOrdering Facility: [facility] Address: [address] [place] [address] Performed By: #### 5 8410-2 ####[facility] [id number] [place] [id number] [facility] WBC (Bld) [#/Vol] 11.50 10*3/uL High 3.70-11.00 [facility] Comment on above: Order Comment: Monika dye Type: BLOOD SPECIMENOrdering Facility: [facility] Address: [address] [place] [address] Performed By: #### 5 8410-2 ####[facility] [id number] [address] CONSULTon 07-30-2024 CONSULT HNO ID: [id number] Author: AUBREE IRELAND MD Service: General Surgery Author Type: Resident Type: Consults Filed: 07/30/2024 16:59 Note Text: ----- Attestation signed by Aubree Ireland MD at 07/30/2024 4:59 PM Attending Note I evaluated the patient and personally participated in the acosta components. I agree with the resident's findings and plan as documented and have discussed the case and management of the patient's care with the resident. Gastric perforation versus WOPN vs fistula --NPO/IVF --Zosyn/fluc --BID PPI and carafate --GI consult for EGD to assess --Hep gtt in the meantime Signature: Aubree Ireland MD Date: 07/30/2024 Time: 4:58 PM ----- CONSULT: Hepatobiliary Surgery Service SERVICE DATE: 07/30/2024 SERVICE TIME: 9:19 AM REASON FOR CONSULT: gastropancreatic fistula REQUESTING PHYSICIAN: Don LOVE Subjective 69 year old female with PMHx of fibromyalgia, DVTs (on warfarin), hypothyroidism and RA who presents to the ED as a transfer from [place] with symptoms of vomiting x 2 months. Patient reports she vomits after everything she eats and drinks and that the vomiting is increased in severity and frequency. She reports she has vomited about 10 times per day. Admits to 30 pound weight loss over the past 2 months. She has been unable to eat due to this vomiting. She denies any abdominal pain at rest but reports pain in her right sided mid abdomen when palpated. She has a history of long-term NSAID use due to her chronic pain as well as takes daily prednisone. She has a tobacco user and is smoking up to 3 packs/day. Denies any alcohol use. No known history of pancreatitis. No known family history of pancreatitis or pancreas issues. She reports acid reflux-like symptoms but has never had an EGD. She does take carafate for acid reflux. Only abdominal surgical history includes a hysterectomy. CTAP shows a air and fluid collection measuring about 3 cm posterior to the stomach and adjacent to the pancreas concerning for possible posterior gastric Pref with regional abscess versus walled off pancreatic necrosis. 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 Also notable for 1.3 x 0.8 cm fluid density structure within the posterior neck-body junction of the pancreas concerning for possible cystic neoplasm. HBP consulted secondary to these findings FUNCTIONAL STATUS: Independent PAST MEDICAL HISTORY Diagnosis Date Acid reflux Anxiety Chronic pain back,hips, and knees COPD (chronic obstructive pulmonary disease) (HCC) DVT (deep venous thrombosis) ([facility]) 2005 IBS (irritable bowel syndrome) Insomnia RA (rheumatoid arthritis) ([facility]) PAST SURGICAL HISTORY Procedure Laterality Date CARPAL TUNNEL 2003 right COLONOSCOPY 2007 HYSTERECTOMY HX 1993 PAST SURGICAL HISTORY OF 01/2013 Rt total knee replacement PAST SURGICAL HISTORY OF 2011 Rt hip placement THYROIDECTOMY 09/09/13 TONSILLECTOMY HX FAMILY HISTORY Problem Relation Age of Onset Cancer Brother liver Diabetes Father Diabetes Sister Diabetes Brother Heart Maternal Grandmother Stroke Father Social History Tobacco Use Smoking status: Every Day Current packs/day: 1.00 Average packs/day: 1 pack/day for 20.0 years (20.0 ttl pk-yrs) Types: Cigarettes Substance Use Topics Alcohol use: No levothyroxine 175 mcg tablet, Take 175 mcg by mouth daily before breakfast., Disp: , Rfl: GABAPENTIN 300 mg capsule, twice daily., Disp: , Rfl: tiotropium 18 mcg INHALATION inhalation capsule, Inhale 1 capsule as instructed once daily., Disp: , Rfl: 0 montelukast (SINGULAIR) 10 mg ORAL tablet, Take 1 tablet by mouth daily at bedtime., Disp: , Rfl: 0 methocarbamol 750 mg ORAL tablet, Take 1 tablet by mouth twice daily., Disp: , Rfl: 0 tofacitinib (XELJANZ) 5 mg tab, Take by mouth twice daily., Disp: , Rfl: Sodium,Potassium,ANDMag Sulfates (SUPREP) 17.5-3.13-1.6 gram solr, Take according to printed instructions given by office., Disp: 1 Bottle, Rfl: 0 fentaNYL (DURAGESIC) 75 mcg/hr, Apply 1 Patch as directed every 72 hours., Disp: , Rfl: fluticasone-salmeterol (ADVAIR DISKUS) 100-50 mcg/dose INHALATION DsDv, Inhale 1 Puff as instructed twice daily. RINSE AND GARGLE MOUTH WITH WATER AFTER EACH USE., Disp: , Rfl: 0 albuterol 90 mcg/Actuation INHALATION Aero, Inhale 2 Puffs as instructed four times daily as needed. FOR WHEEZING AND SHORTNESS OF BREATH., Disp: , Rfl: 0 Methotrexate Sodium (METHOTREXATE, ANTI-RHEUMATIC,) 2.5 mg ORAL tablet, Take 3 tablets by mouth (more content not included)... Normal [facility] CONSULT HNO ID: [id number] Author: OSVALDO SEGURA MD Service: Pain Management Author Type: Physician Type: Consults Filed: 07/30/2024 14:16 Note Text: Name: AMNA SEQUEIRA Age: [age] year old PAIN MANAGEMENT: Chronic pain, fibromyalgia, RA, osteoarthritis, abdominal pain with CT concerning for possible walled off gastric perforation versus pancreatic necrosis Pain Description: Patient complains of her chronic joint pain from RA as well as chronic neck pain. When someone pushes on her stomach, she has severe pain but otherwise is doing okay Interval HPI: 24H Comfort Meds: Tylenol 975 mg 4 times daily x 3 Gabapentin 300 mg twice daily x 2 Robaxin 1500 mg 3 times daily x 2 Oxycodone 5-10 mg every 6 hours as needed 10 mg x 1 Subjective HPI: 69-year-old female with history of chronic multifactorial pain (fibromyalgia, RA, osteoarthritis s/p right TKA/LADI) opiate dependent, tobacco abuse, DVTs on Coumadin, hypothyroidism transferred 07/28 from [place] with nausea, emesis, anorexia, 30 pound weight loss over the last 2 months and severe constipation (no BM x 1 month?) CTAP shows a air and fluid collection measuring about 3 cm posterior to the stomach and adjacent to the pancreas concerning for possible Posterior gastric Pref with regional abscess versus walled off pancreatic necrosis. Labs included creatinine 0.63 lipase 101 WBC 16.4 hemoglobin 9.1 PT 13 INR 1.2. 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 Also notable for 1.3 x 0.8 cm fluid density structure within the posterior neck-body junction of the pancreas concerning for possible cystic neoplasm. HBP consulted. Patient is followed by Dr. Simon in [place] for chronic pain management. Home pain regimen includes gabapentin 800 mg 3 times daily (for RLS), oxycodone 10 mg up to 6 tabs daily. She also takes Xanax 0.25 mg at bedtime. She lives with her family; her daughter, son-in-law, son and 2 grandchildren all live with her. She smokes 1/2 to 2 packs/day. She denies alcohol. She drinks 1 cup of CBD coffee daily. She denies marijuana. OARRS Review: A1 prescriptions and 3 prescribers. Opiate and benzodiazepine dependent. Most recent prescriptions: 06/24, 07/23 gabapentin 800 mg #90 07/12 oxycodone 10 mg #180 (30-day supply) 06/14 oxycodone 10 mg #120 05/27 Xanax 0.25 mg #90 Current Facility-Administered Medications Medication Dose Route Frequency Provider Last Rate Last Admin montelukast 10 mg tab(s) (SINGULAIR) 10 mg ORAL AT BEDTIME GarolokDoraElly, DO levothyroxine (SYNTHROID) tab(s) 175 mcg 175 mcg ORAL DAILY (6 AM) Dora Lepeidy, DO 175 mcg at 07/30/24 0441 methocarbamol 1,500 mg tab(s) (ROBAXIN) 1,500 mg ORAL TID GawDora paceidy, DO 1,500 mg at 07/29/24 1246 lactated ringers iv infusion 125 mL/hr INTRAVENOUS CONTINUOUS Gawharleenk, Elly, DO 125 mL/hr at 07/29/24 2309 125 mL/hr at 07/29/24 2309 acetaminophen 975 mg tab(s) (TYLENOL) 975 mg ORAL QID Andreywharleenk, Elly, DO 975 mg at 07/29/24 1611 morphine 2 mg injection 2 mg INTRAVENOUS q 4 H PRN Jose Mk, Elly, DO iv contrast (radiology procedure) INTRAVENOUS DIRECTED PRN Jose Mk Elly, DO oxyCODONE IR 5-10 mg tab(s) (ROXICODONE) 5-10 mg ORAL q 6 H PRN Garolok Elly, DO 10 mg at 07/29/24 2348 heparin iv infusion 25,000 units in NaCl 0.45% 250 mL STANDARD NOMOGRAM 0-3,000 Units/hr INTRAVENOUS CONTINUOUS Gawlik, Elly, DO 16 mL/hr at 07/30/24 0601 1,600 Units/hr at 07/30/24 0601 And heparin RATE CHANGE bolus 1,000-10,000 Units for subtherapeutic PTTAC results 1,000-10,000 Units INTRAVENOUS PRN Elly Lepe, DO 3,200 Units at 07/30/24 0602 pantoprazole 40 mg injection (PROTONIX) 40 mg INTRAVENOUS BID AC (0600/1600) Elly Lepe, DO 40 mg at 07/30/24 0441 piperacillin-tazobactam iv piggyback 3.375 g in dextrose (iso-osmotic) 50 mL (ZOSYN) 3.375 g INTRAVENOUS q 6 H Elly Lepe DO Stopped at 07/30/24 0512 sucralfate 1 g tab(s) (CARAFATE) 1 g ORAL AC and HS Elly Lepe, DO 1 g at 07/29/24 1611 vancomycin dosing and monitoring per pharmacy OTHER As Directed Elly Lepe DO ipratropium 0.02 % 0.5 mg (ATROVENT) 0.5 mg INHALATION QID Elly Lepe DO 0.5 mg at 07/30/24 0754 prochlorperazine 5 mg injection (COMPAZINE) 5 mg INTRAVENOUS q 6 H PRN Elly Lepe, DO 5 mg at 07/29/24 0302 Or prochlorperazine 5 mg tab(s) (COMPAZINE) 5 mg ORAL q 6 H PRN Elly Lepe, DO vancomycin 1.25 g in NaCl 0.9% 250 mL (VANCOCIN) 0.015 g/kg/dose INTRAVENOUS q 12 HR Belen Peres RPh Stopped at 07/29/24 1311 gabapentin 300 mg oral liquid (NEURONTIN) 300 mg ORAL BID Blair Perez MD 300 mg at 07/29/24 2310 mometasone-formoterol 200-5 mcg/actuation 2 Puff inhale (more content not included)... Normal [facility] CONSULT PROGon 07-30-2024 CONSULT PROG HNO ID: [id number] Author: CHANTEL VILLATORO RPh Service: Pharmacy Author Type: Pharmacist Type: Consult Progress Note Filed: 07/30/2024 08:40 Note Text: PHARMACY VANCOMYCIN DOSING NOTE Patient Name: Amna Sequeira Admission Date: 07/28/2024 Date of Consult: 07/30/2024 Time of Consult: 8:40 AM RECOMMENDATIONS/PLAN: Pharmacy consulted for vancomycin dosing for Amna Sequeira, a 69 year old female. Vancomycin therapy has been discontinued. Vancomycin level(s) have been discontinued: Yes. The pharmacy vancomycin dosing service will sign off. Thank you for allowing us to participate in this patient's care. Please contact pharmacy if there are questions. Chantel Villatoro [facility] NUTRITIONon 07-30-2024 NUTRITION HNO ID: [id number] Author: BARBARA CHAUDHARI RD Service: Nutrition Therapy Author Type: Registered Dietitian Type: Nutrition Filed: 07/30/2024 12:02 Note Text: INITIAL ASSESSMENT SERVICE DATE: 07/30/2024 SERVICE TIME: 1009 Nutrition Assessment: Recommended Malnutrition Diagnosis: Moderate Protein-Calorie Malnutrition In the context of: Acute Illness or Injury Based on: Insufficient Energy Intake, Muscle Loss Nutrition Diagnosis: Problem: Suboptimal protein/energy intake Related to: Acute illness As evidenced by: Medical condition, Weight loss, Anorexia, Depletion of fat/muscle stores, Patient/family self-report Care Plan: Follow for diet advancement to goal (NPO) Medications: Anti-emetics Monitor and Evaluation: Meet greater than 75% of estimated needs, Monitor bowel function, Monitor fluid/electrolyte balance, Monitor labs, I/Os, vital signs, weight HPI: Patient is a 69 y/o female with PMH fibromyalgia, DVTs, hypothyroidism and RA and was admitted with vomiting x [address] findings concerning for possible walled off gastric perforation vs pancreatic necrosis. Intake History: Nutrition Intake Prior to Admission: 0-25% estimated energy needs (says all she is able to eat is yogurt and water) greater than or equal to 1 month (2 months) Current Nutrition Intake: NPO Current Intake Over time: (1 day) Dosing Weight: 79.3 kg (174 lb 13.2 oz) Dosing Weight Type: Current weight Estimated kilocalorie needs: 8657-4064 Calorie Calculation Method: 20-25 kcals/kg Estimated protein needs (grams): 79-95 Grams protein determined by: 1.0 - 1.2 g/kg Diet Orders (From admission, onward) Start Ordered 07/29/240 DIET NPO START NOW Question Answer Comment NPO Restrictions EXCEPT MEDS NPO Restrictions EXCEPT SIPS OF WATER 07/29/24 2150 Anthropometrics: Height: 162.6 cm (5' 4) Weight: 79.3 kg (174 lb 13.2 oz) Usual Weight: 93 kg (205 lb) Usual Weight Obtained From: Patient (no recent documented weights to review) Body mass index is 30.01 kg/m?. Weight change percentage over time: 17% x 2 months per reported weight Weight Change: Potentially clinically significant but does not meet criteria to support malnutrition diagnosis Physical Exam: Subcutaneous fat loss: Mild Muscle loss: Moderate Potential micronutrient deficiency: Teeth Edema/Ascites: No edema GI Symptoms: Vomiting, Nausea, Anorexia Stool Amount: Decreased Functional Status: Regressed Potential Signs of Inflammation: Chronic condition, Tachycardia, Imaging studies, Leukocytosis RA, CODP, IBS MNT Billing: $ Initial Assessment: 1-15 minutes SIGNATURE: Barbara Chaudhari RD PATIENT NAME: Amna Sequeira DATE: July 30, 2024 TIME: 1009 AM Normal [facility] aPTT PPPon 07-30-2024 aPTT Coag (PPP) [Time] 123.4 s High 23.0-32.4 [facility] Comment on above: Order Comment: Speci men Type: BLOOD SPECIMENOrdering Facility: [facility] Address: [address] [place] [address] Performed By: #### 1 4979-9 ####[facility] [id number] [address] [place] [facility] aPTT Coag (PPP) [Time] s High 23.0-32.4 [facility] Comment on above: Order Comment: Speci men Type: BLOOD SPECIMEN [facility] Address: [address] [place] [address] Performed By: #### 1 4979-9 #### [facility] CLIA [id number] [address] OF [facility] aPTT Coag (PPP) [Time] 47.7 s High 23.0-32.4 [facility] Comment on above: Order Comment: Speci men Type: BLOOD SPECIMENOrdering Facility: [facility] Address: [address] [place] [address] Performed By: #### 1 4979-9 ####[facility] [id number] [address] OF [facility] ALLIED HEALTHon 07-29-2024 ALLIED HEALTH HNO ID: [id number] Author: SMILEY WHELAN RT(R) Service: Radiology Author Type: Technologist Type: Allied Health Filed: 07/29/2024 11:08 Note Text: Radiology Service Progress Note DATE OF SERVICE: July 29, 2024 TIME: 11:08 AM PATIENT IDENTITY VERIFICATION COMPLETED USING TWO (2) STANDARD IDENTIFIERS: Name and Date of confirmed by patient verbally and Name and Date of confirmed by identification band. FALL SCREENING: Has the patient had 2 falls in the last year or 1 fall with injury or currently using an Ambulatory Assistive Device (Walker, Cane, Wheelchair, Crutches, etc.)? Emergency Room Patient: Screened in ED PATIENT GENDER DATA: Female. status: : No status: NO. PATIENT RELEVANT IMPLANT DATA REVIEWED: Not Applicable PATIENT PRESENTS WITH AN IMPLANTABLE OR ATTACHED COMMUNITY HEALTH PLANNING DIRECTOR: No ALLERGIES: Reviewed and unchanged CONTRAST ALLERGY: NO. EXAM: CT -CONTRAST INDUCED NEPHROPATHY RISK FACTORS: Patient age > 60 years CREATININE: Creatinine Date Value Ref Range Status 07/29/2024 0.63 0.58 - 0.96 mg/dL Final 06/03/2014 0.78 0.70 - 1.40 mg/dL Final Estimated Glomerular Filtration Rate Date Value Ref Range Status 07/29/2024 96 >=60 mL/min/1.73m? Final Comment: Estimated Glomerular Filtration Rate (eGFR) is calculated using the 2020 CKD-EPI creatinine equation. This equation utilizes serum creatinine, sex, and age as parameters. The creatinine assay has traceable calibration to isotope dilution-mass spectrometry. Refer to KDIGO guidelines for clinical interpretation. In patients with unstable renal function, e.g. those with acute kidney injury, the eGFR may not accurately reflect actual GFR. eGFR- Date Value Ref Range Status 06/03/2014 >60 Final P.O.C.T. RESULTS: N/A July 29, 2024 TREATMENT: N/A PERIPHERAL IV DATA: Inpatient - refer to LDA documentation RADIOLOGY DEPARTMENT: CT; Exam(s) Completed: Abdomen/Pelvis SIGNATURE: Smiley Whelan RT(R) PATIENT NAME: Amna Sequeira DATE: July 29, 2024 TIME: 11:08 AM Normal [facility] Basic metabolic 2000 panelon 07-29-2024 Anion gap [Moles/Vol] 11 mmol/L Normal 8-15 [facility] Comment on above: Order Comment: Speci men Type: BLOOD SPECIMEN [facility] Facility: [facility] Address: [address] [place] [address] Performed By: #### 2 4321-2 #### [facility] CLIA [id number] [address] [place] [address] [place] Calcium [Mass/Vol] 8.1 mg/dL Low 8.5-10.2 [facility] Comment on above: Order Comment: Speci men Type: BLOOD SPECIMEN [facility]ing Facility: [facility] Address: [address] [place] [address] Performed By: #### 2 4321-2 #### [facility] CLIA [id number] [address] [place] [address] [place] Chloride [Moles/Vol] 103 mmol/L Normal 98-107 [facility] Comment on above: Order Comment: Speci men Type: BLOOD SPECIMEN [facility]ing Facility: [facility] Address: [address] [place] [address] Performed By: #### 2 4321-2 #### [facility] CLIA [id number] [address] [place] [address] [place] CO2 [Moles/Vol] 23 mmol/L Normal 22-30 [facility] Comment on above: Order Comment: Speci men Type: BLOOD SPECIMEN [facility] Facility: [facility] Address: [address] [place] [address] Performed By: #### 2 4321-2 #### [facility] CLIA [id number] [address] [place] [address] [place] Creatinine [Mass/Vol] 0.63 mg/dL Normal 0.58-0.96 [facility] Comment on above: Order Comment: Speci men Type: BLOOD SPECIMEN [facility]ing Facility: [facility] Address: [address] [place] [address] Performed By: #### 2 4321-2 #### [facility] CLIA [id number] [address] [place] [address] Creatinine and Glomerular filtration rate.predicted panel (S/P/Bld) 96 mL/min/1.73m??? Normal >=60 [facility] Comment on above: Order Comment: Monika dye Type: BLOOD SPECIMEN Ordering Facility: [facility] Address: [address] [place] [address] Result Comment: Gisela mated Glomerular Filtration Rate (eGFR) is calculated using the 2020 CKD-EPI creatinine equation. This equation utilizes serum creatinine, sex, and age as parameters. The creatinine assay has traceable calibration to isotope dilution-mass spectrometry. Refer to KDIGO guidelines for clinical interpretation. In patients with unstable renal function, e.g. those with acute kidney injury, the eGFR may not accurately reflect actual GFR. Performed By: #### 2 4321-2 #### [facility] CLIA [id number] [address] [place] [address] [place] Glucose [Mass/Vol] 82 mg/dL Normal 74-99 [facility] Comment on above: Order Comment: Monika dye Type: BLOOD SPECIMEN Ordering Facility: [facility] Address: [address] [place] [address] Result Comment: The [place] Diabetes Association (ADA) provides guidance for cutoff values for fasting glucose and random glucose. The ADA defines fasting as no caloric intake for at least 8 hours. Fasting plasma glucose results between 100 to 125 mg/dL indicate increased risk for diabetes (prediabetes). Fasting plasma glucose results greater than or equal to 126 mg/dL meet the criteria for diagnosis of diabetes. In the absence of unequivocal hyperglycemia, results should be confirmed by repeat testing. In a patient with classic symptoms of hyperglycemia or hyperglycemic crisis, random plasma glucose results greater than or equal to 200 mg/dL meet the criteria for diagnosis of diabetes. Reference: Standards of Medical Care in Diabetes 2016, [place] [employer] Association. Diabetes Care. 2016.39(Suppl 1). Performed By: #### 2 4321-2 #### [facility] CLIA [id number] [address] [place] Potassium [Moles/Vol] 3.6 mmol/L Low 3.7-5.1 [facility] Comment on above: Order Comment: Speci men Type: BLOOD SPECIMEN Ordering Facility: [facility] Address: [address] [place] [address] Performed By: #### 2 4321-2 #### [facility] CLIA [id number] [address] [place] Sodium [Moles/Vol] 137 mmol/L Normal 136-144 [facility] Comment on above: Order Comment: Speci men Type: BLOOD SPECIMEN Ordering Facility: [facility] Address: [address] [place] [address] Performed By: #### 2 4321-2 #### [facility] CLIA [id number] [address] STATES OF [facility] Urea nitrogen [Mass/Vol] 10 mg/dL Normal 7-21 [facility] Comment on above: Order Comment: Speci men Type: BLOOD SPECIMEN Ordering Facility: [facility] Address: [address] [place] [address] Performed By: #### 2 4321-2 #### [facility] CLIA [id number] [address] [place] [address] [place] CBC W/Diff, Automatedon 09-3 PATH REV Reviewed Normal [facility] Comment on above: Result Comment: Neut rophilic leukocytosis. Microcytic anemia. Thrombocytosis. Clinical correlation necessary. Hi Jenkins M.D. 07/29/24 Neutrophilic leukocytosis. Microcytic anemia. Thrombocytosis. Clinical correlation necessary. Hi Jenkins M.D. 07/29/24 AMENDED REPORT 07/29/24 1259 PATH REV previously reported as: February Performed By: #### L 100.0100, L500.4050, L501.2450 #### [facility] [address] [place], [place], [id number] CBC panel Auto (Bld)on 07-29 Erythrocyte distribution width (RBC) [Ratio] 21.2 % High 11.5-15.0 [facility] Comment on above: Order Comment: Speci men Type: BLOOD SPECIMEN Ordering Facility: [facility] Address: [address] [place] [address] Performed By: #### 3 040-3 #### [facility] CLIA [id number] [address] OF [facility] Hematocrit (Bld) [Volume fraction] 30.8 % Low 36.0-46.0 [facility] Comment on above: Order Comment: Speci men Type: BLOOD SPECIMEN Ordering Facility: [facility] Address: [address] [place] [address] Performed By: #### 3 040-3 #### [facility] CLIA [id number] [address] [place] [facility] Hemoglobin (Bld) [Mass/Vol] 9.1 g/dL Low 11.5-15.5 [facility] Comment on above: Order Comment: Speci men Type: BLOOD SPECIMEN Ordering Facility: [facility] Address: [address] [place] [address] Performed By: #### 3 040-3 #### [facility] CLIA [id number] [address] [place] MCH (RBC) [Entitic mass] 23.0 pg Low 26.0-34.0 [facility] Comment on above: Order Comment: Speci men Type: BLOOD SPECIMEN Ordering Facility: [facility] Address: [address] [place] [address] Performed By: #### 3 040-3 #### [facility] CLIA [id number] [address] MCHC (RBC) [Mass/Vol] 29.5 g/dL Low 30.5-36.0 [facility] Comment on above: Order Comment: Speci men Type: BLOOD SPECIMEN Ordering Facility: [facility] Address: [address] [place] [address] Performed By: #### 3 040-3 #### [facility] CLIA [id number] [address] MCV (RBC) [Entitic vol] 78.0 fL Low 80.0-100.0 [facility] Comment on above: Order Comment: Speci men Type: BLOOD SPECIMEN Ordering Facility: [facility] Address: [address] [place] [address] Performed By: #### 3 040-3 #### [facility] CLIA [id number] [address] Nucleated RBC (Bld) [#/Vol] 10*3/uL Normal <0.01 [facility] Comment on above: Order Comment: Speci men Type: BLOOD SPECIMEN Ordering Facility: [facility] Address: [address] [place] [address] Performed By: #### 3 040-3 #### [facility] CLIA [id number] [address] Platelet mean volume (Bld) [Entitic vol] 8.6 fL Low 9.0-12.7 [facility] Comment on above: Order Comment: Speci men Type: BLOOD SPECIMEN Ordering Facility: [facility] Address: [address] [place] [address] Performed By: #### 3 040-3 #### [facility] CLIA [id number] [address] Platelets (Bld) [#/Vol] 565 10*3/uL High 150-400 [facility] Comment on above: Order Comment: Speci men Type: BLOOD SPECIMEN Ordering Facility: [facility] Address: [address] [place] [address] Performed By: #### 3 040-3 #### [facility] CLIA [id number] [address] [place] RBC (Bld) [#/Vol] 3.95 10*6/uL Normal 3.90-5.20 [facility] Comment on above: Order Comment: Speci men Type: BLOOD SPECIMEN Ordering Facility: [facility] Address: [address] [place] [address] Performed By: #### 3 040-3 #### [facility] CLIA [id number] [address] WBC (Bld) [#/Vol] 16.36 10*3/uL High 3.70-11.00 [facility] Comment on above: Order Comment: Speci men Type: BLOOD SPECIMEN Ordering Facility: [facility] Address: [address] [place] [address] Performed By: #### 3 040-3 #### [facility] CLIA [id number] [address] CONFIRM BLOOD TYPEon 024 ABO A Normal [facility] Comment on above: Order Comment: Speci men Type: BLOOD SPECIMENOrdering Facility: [facility] Address: [address] [place] [address] Performed By: #### C ONABO ####[facility] [id number] [address] Rh Nom (Bld) Negative Normal [facility] Comment on above: Order Comment: Speci men Type: BLOOD SPECIMENOrdering Facility: [facility] Address: [address] [place] [address] Performed By: #### C ONABO ####[facility] [id number] [address] CONSULT PROGon 07-29-2024 CONSULT PROG HNO ID: [id number] Author: BELEN PERES RPh Service: Pharmacy Author Type: Pharmacist Type: Consult Progress Note Filed: 07/29/2024 03:53 Note Text: PHARMACY VANCOMYCIN DOSING NOTE Patient Name: Amna Sequeira Admission Date: 07/28/2024 Date of Consult: 07/29/2024 Time of Consult: 1:57 AM Indication: Intra-abdominal Goal Range: 10-20 mcg/mL RECOMMENDATIONS/PLAN: Pharmacy consulted for vancomycin dosing for Amna Sequeira, a 69 year old female. 1. Patient is currently ordered vancomycin 1.25 g IV q12h. Today is day 1 of therapy. The patient received a dose of vancomycin 1.25 grams IV x ONCE 07/28/2024 @ 2253. 2. No vancomycin level has been drawn for this dosing regimen. 3. The present dose of vancomycin is the recommended dosage for this patient at this time. Continue therapy as prescribed. Scr is stable at approximate baseline of 0.7-0.8 mg/dL (care everywhere). 4. The next vancomycin level has been ordered for 07/30/2024 @ 2200 (Completed) We will follow patient renal function, vancomycin levels and doses with you during the course of therapy. Additional recommendations will appear in follow up notes. If you have any questions[place] [phone]. Age: [age] year old Allergies: ALLERGIES Allergen Reactions Bactrim [Sulfametho* Rash Macrobid [Nitrofura* Other: See Comments Decreased heart rate Sulfa (Sulfonamide * Hives Last 3 Encounter Wt Readings: Date: Wt: 07/28/2024 79.4 kg (175 lb) 06/03/2014 98 kg (216 lb) 02/04/2014 98 kg (216 lb) Last 1 Encounter Ht Readings: Date: Ht: 07/28/2024 162.6 cm (5' 4) CrCl: 85.9 mL/min (> 50 mL/min) Temp (24hrs), Av.8 ?C (98.3 ?F), Min:36.8 ?C (98.3 ?F), Max:36.8 ?C (98.3 ?F) - Current Temp: 36.8 ?C (98.3 ?F) Labs BUN (mg/dL) Date Value 07/29/2024 10 Creatinine (mg/dL) Date Value 07/29/2024 0.63 06/03/2014 0.78 WBC (k/uL) Date Value 07/29/2024 16.36 (H) 06/03/2014 7.82 Vancomycin Levels: No results found for: ROBERT Peres, Pharm.D., [facility] CT ABD/PEL W IVCONon 024 CT ABD/PEL W IVCON * * *Final Report* * * DATE OF EXAM: Jul 29 2024 11:10AM [facility] 0530 - CT ABD/PEL W IVCON / PROCEDURE REASON: Abdominal pain, acute, nonlocalized * * * * Physician Interpretation * * * * EXAMINATION: CT ABDOMEN AND PELVIS WITH IV CONTRAST CLINICAL HISTORY: History of fibromyalgia, DVTs (on warfarin), rheumatoid arthritis, presents with abdominal pain, vomiting, OSH CT findings concerning for possible gastric perforation versus pancreatic necrosis. Prior hysterectomy. TECHNIQUE: CT of the abdomen and pelvis is performed using standard technique, scanning from just above the dome of the diaphragm to the symphysis pubis. MQ: CTAP_3 Contrast: IV: 100 ml of Omnipaque 350 Oral: 450 ml of Omni 240 10-25ml diluted with water CT Radiation dose: Integrated Dose-length product (DLP) for this visit = 816 mGy*cm. CT Dose Reduction Employed: Automated exposure control(AEC) and iterative recon COMPARISON: OSH CT abdomen and pelvis 07/28/2024. RESULT: Liver: 3 cm moderate well-defined subcapsular hypodensity segment IV, contiguous with the falciform ligament. Biliary: No bile duct dilation. Mild distended gallbladder. Spleen: No mass. No splenomegaly. Pancreas: 2 x 3 cm AP by transverse fluid density structure contiguous with the posterior wall of the distal stomach. The hypodensity extends caudal over the anterior head-neck junction of the pancreas where there is a small focus of intracollection air. The fluid density at the anterior head-neck junction of the pancreas measures 1.6 x 1 cm AP by transverse and approximately 3 cm craniocaudal. There is a rim-enhancing air-containing fluid density structure within the lesser sac. The fluid density structure is contiguous with the greater curvature of the stomach. The fluid density extends caudal anterior and inferior to the body of the pancreas. The air-containing component measures approximately 1.5 x 2.5 cm AP by transverse within the lesser sac with the rim-enhancing fluid density density component measuring 2.7 x 3.5 cm AP by transverse at the level of the pancreas and approximately 3.5 cm craniocaudal. In addition to contiguity with the greater curvature of the stomach, there is also contiguity with the small bowel at the level of the ligament of Treitz. The distal splenic vein is seen to course within the fluid density structure with luminal narrowing. There is no bowel contrast material within either fluid collections. There is a 1.3 x 0.8 cm fluid density structure within the posterior neck-body junction of the pancreas. There is heterogeneous hypoattenuating appearance of the pancreatic head. The pancreatic duct is nondilated. There are mild peripancreatic inflammatory changes. Adrenals: No mass. Kidneys: Symmetric nephrograms. Bilateral multiple, too numerous to count, cortical hypodensities, a couple of the larger measuring 4 cm medial upper pole left kidney and 4 cm lateral upper pole left kidney. Also multiple subcentimeter cortical hypodensities, considered too small to characterize. There are small foci of hyperdensity at the corticomedullary junction of the right kidney possibly representing calyceal calculi and/or contrast material within the calyces. There is no hydronephrosis. GI tract: Fluid masses within the anterior pararenal space are seen in contiguity with the greater curvature of the stomach and the proximal small bowel at the level of the ligamentum ligament of Treitz as noted above. Lymph nodes: Small and mild prominent retrocrural lymph nodes. No pathologically enlarged abdominal or pelvic lymphadenopathy. Mesentery/Peritoneum: No ascites or mass. Retroperitoneum: No mass. Vasculature: - Abdominal aorta and iliac arteries: Atherosclerotic calcifications without aneurysm. - Celiac and SMA: Atherosclerotic calcifications at the origins. - Portal venous system (SMV, splenic vein, portal vein and branches): Patent. - Hepatic veins: Patent. Pelvis: Evaluation limited by beam hardening artifact right hip arthroplasty. No mass, ascites or fluid collection. Absent uterus. Bones/Soft Tissues: The bones appear diffusely demineralized. There are multilevel moderate, moderate-severe predominantly biconcave compression deformities of the thoracolumbar spine spine. T8 vertebra plana with retropulsion with associated mild to moderate narrowing of the central canal. Multilevel degenerative changes of the thoracolumbar spine. Right total hip arthroplasty. Lower thorax: Bibasilar atelectasis and/or scarring. Localizer images: No additional findings. IMPRESSION: 2 x 3 x 3 cm craniocaudal fluid density structure contiguous with the posterior wall of the distal stomach extending caudal anterior head-neck junction of the pancreas with a small focus of intracollection air. 2.7 x 3.5 x 3.5 cm craniocaudal air-containing rim-enhancing fluid density structure within the lesser sac (more content not included)... Normal [facility] ED NOTEon 07-29-2024 ED NOTE HNO ID: [id number] Author: YENNIFER ACOSTA RN Service: Emergency Medicine Author Type: Registered Nurse Type: ED Notes Filed: 07/29/2024 04:37 Note Text: Patient put on 2L O2 for o2 Sat 91% while sleeping Normal [facility] ED NOTE HNO ID: [id number] Author: YENNIFER ACOSTA RN Service: Emergency Medicine Author Type: Registered Nurse Type: ED Notes Filed: 07/29/2024 01:53 Note Text: Resident Elly Graham at bedside to clarify heparin orders with patient Normal [facility] ED NOTE HNO ID: [id number] Author: YENNIFER ACOSTA RN Service: Emergency Medicine Author Type: Registered Nurse Type: ED Notes Filed: 07/29/2024 01:48 Note Text: Pt requests clarification on reasoning behind heparin drip. Admitting paged. Normal [facility] H. pylori IgG IA Qlon 2023 H. PYLORI IGG, QUAL Negative Normal Negative [facility] Comment on above: Order Comment: Monika dye Type: BLOOD SPECIMEN Ordering Facility: [facility] Address: [address] [place] [address] Result Comment: Messi ot exclude H. pylori infection if the specimen collected 3-4 weeks after onset of symptoms. Performed By: #### 3 040-3 #### [facility] CLIA [id number] [address] [place] [facility] aPTT PPPon 07-29-2024 aPTT Coag (PPP) [Time] 70.3 s High 23.0-32.4 [facility] Comment on above: Order Comment: Monika dye Type: BLOOD SPECIMEN Ordering Facility: [facility] Address: [address] [place] [address] Performed By: #### 3 040-3 #### [facility] CLIA [id number] [address] OF [facility] aPTT Coag (PPP) [Time] 85.8 s High 23.0-32.4 [facility] Comment on above: Order Comment: Speci men Type: BLOOD SPECIMEN Ordering Facility: [facility] Address: [address] [place] [address] Performed By: #### 3 040-3 #### [facility] CLIA [id number] [address] aPTT Coag (PPP) [Time] 45.6 s High 23.0-32.4 [facility] Comment on above: Order Comment: Speci men Type: BLOOD SPECIMEN Ordering Facility: [facility] Address: [address] [place] [address] Performed By: #### 3 040-3 #### [facility] CLIA [id number] [address] aPTT Coag (PPP) [Time] 26.5 s Normal 23.0-32.4 [facility] Comment on above: Order Comment: Speci men Type: BLOOD SPECIMENOrdering Facility: [facility] Address: [address] [place] [address] Performed By: #### 1 4979-9 ####[facility] [id number] [address] OF [facility] 12 Lead EKGon 07-28-2024 12 Lead EKG [facility] [address] [place] [address] 12 Lead EKG 07/28/24 1615 MR#: [id number] Acct: [id number] Name: AMNA SEQUEIRA Rep #: [id number] : 1955 69 From: Raulito Lopez MD Attending Dr: Status: DEP ER Ordering Dr: Toribio Salvador MD Date: 07/28/24 Location: ED Sex: F C Admitted: Test Reason : ABN LABS Blood Pressure : / mmHG Vent. Rate : 104 BPM Atrial Rate : 104 BPM P-R Int : 136 ms QRS Dur : 076 ms QT Int : 336 ms P-R-T Axes : 027 003 076 degrees QTc Int : 441 ms Sinus tachycardia with Premature atrial complexes Otherwise normal ECG Confirmed by RAULITO LOPEZ MD ([id number]), clinical editor BRADY AHNYA ([id number]) on 07/30/2024 6:32:33 AM Referred By: Confirmed By:RAULITO LOPEZ MD 07/30/24 0632 Date aRulito Lopez MD CC: Dr. Toribio Salvador MD; Dr. Galindo Gutierrez MD Signed Normal [facility] Abdomen/Pelvis W IV Cont ONL Yon 07-28-2024 Abdomen/Pelvis W IV Cont ONLY [facility] [address] [place], [place] [address] Abdomen/Pelvis W IV Cont ONLY MR#: [id number] Acct: [id number] Name: AMNA SEQUEIRA Rep #: [id number] : 1955 F 69 From: Yazan Saravia PCP: Dr. Galindo Gutierrez MD Status: DEP ER Study: Abdomen/Pelvis W IV Cont ONLY Date of Exam: Exam# [id number] Ordering Dr: Toribio Salvador MD ADDENDUM by Dr. Yazan Smith MD on 08/11/24 at 1400 ADDENDUM [id number] addendum: There is an IVC filter. Recommend IVC filter team management correlation. Electronically Signed: Yazan Smith MD at 14:00 EDT , N.B. : The above Results were Read Back by Yazan Smith MD to Toribio Salvador MD, and understanding confirmed on 07/28/2024 18:35:12 (ET). 08/11/24 1400 Date cc: Dr. Toribio Salvador MD; Dr. Galindo Gutierrez MD * Signed ADDENDUM by Dr. Yazan Smith MD on 07/28/24 at 1921 ADDENDUM [id number] ADDENDUM: Critical finding called and case discussed. 07/28/2024 7:19 PM Jeramy Kwan Infected pancreatic pseudocyst, contained gastric perforation with abscess formation, focal area of pancreatic necrosis is in the differential. Electronically Signed: Yazan Smith MD at 19:21 EDT Reading Location ID and State: [facility] / [place] , Service support , N.B. : The above Results were Read Back by Yazan Smith MD to Toribio Salvador MD, and understanding confirmed on 07/28/2024 18:35:12 (ET). 07/28/241920 Date cc: Dr. Toribio Salvador MD; Dr. Galindo Gutierrez MD * Signed ADDENDUM by Dr. Yazan Smith MD on 07/28/24 at 1829 [id number] STUDY: CT Abdomen And Pelvis W/ Contrast Injection 07/28/2024 6:23 PM REASON FOR EXAM: Female, 69 years old. Abdominal pain Nausea and vomiting, pain Individualized dose optimization techniques were used for this CT. COMPARISON: 06.19.19 TECHNIQUE: CT Abdomen And Pelvis W/ Contrast Injection IV 100mL Isovue-370 FINDINGS: There are atherosclerotic calcifications of visualized coronary arteries. The visualized portions of the heart are within normal limits. Normal liver. Normal gallbladder and extrahepatic biliary system. Normal spleen. Normal pancreas. Normal bilateral adrenal glands. Multicystic right kidney. Multicystic left kidney. Gastric perforation. There is an adjacent abscess measuring 29 x 30 mm. Normal small intestine. Stool throughout the colon. The appendix is visualized and appears normal. There are calcifications of the abdominal aorta. This is consistent for atherosclerotic disease. There is NO abdominal aortic aneurysm. Vascular workup can be obtained based on clinical correlation. There is an IVC filter in place. Recommend correlation with IVC filter placement the for follow-up. Subcentimeter mesenteric lymph nodes. Normal urinary bladder. There is absence of the uterus consistent with a prior hysterectomy. Normal abdominal wall. There are diffuse degenerative changes of the visualized lumbar spine. Multiple stable compression deformities in the lumbar spine. Total right hip arthroplasty. 07/28/24 1829 Date cc: Dr. Toribio Salvador MD; Dr. Galindo Gutierrez MD * Signed ADDENDUM by Dr. Yazan Smith MD on 08/11/[address]/Abdomen/Pelvis W IV Cont ONLY IMPRESSION: undefined 08/11/24 1407 Date cc: Dr. Toribio Salvador MD; Dr. Galindo Gutierrez MD * Signed ADDENDUM by Dr. Yazan Smith MD on 07/28/[address]/Abdomen/Pelvis W IV Cont ONLY IMPRESSION: undefined 07/28/241927 Date cc: Dr. Toribio Salvador MD; Dr. Galindo Gutierrez MD * Signed ADDENDUM by Dr. Yazan Smith MD on 07/28/[address]/Abdomen/Pelvis W IV Cont ONLY IMPRESSION: (NOT LISTED IN ORDER OF SIGNIFICANCE) Acute gastric perforation with regional abscess. Polycystic kidney disease. Other findings as above. N.B. : The above Results were Read Back by Yazan Smith MD to Toribio Salvador MD, and understanding confirmed on 07/28/2024 18:35:12 (ET). Electronically Signed: Yazan Smith MD at 18:29 EDT , 07/28/24 1842 Date cc: Dr. Hernandez (more content not included)... Normal [facility] Comprehensive Metabolic Prof ilon 07-28-2024 Albumin [Mass/Vol] 2.1 g/dL Low 3.2-5.0 [facility] Comment on above: Performed By: #### L 100.0100, L500.4050, L501.2450 ####[facility] [address] [place], [address] Albumin/Globulin [Mass ratio] 0.4 {ratio} Low 0.9-2.4 [facility] Comment on above: Performed By: #### L 100.0100, L500.4050, L501.2450 ####[facility] [address] [place], [address] ALK P 120 U/L High 45-117 [facility] Comment on above: Performed By: #### L 100.0100, L500.4050, L501.2450 ####[facility] [address] [place], [address] ALT [Catalytic activity/Vol] 9 U/L Low 13-56 [facility] Comment on above: Performed By: #### L 100.0100, L500.4050, L501.2450 ####[facility] [address] [place], [address] AST [Catalytic activity/Vol] 17 U/L Normal 15-37 [facility] Comment on above: Result Comment: Slig ht Hemolysis, Result may be falsely increased. Performed By: #### L 100.0100, L500.4050, L501.2450 ####[facility] [address] [place], [address] Bilirubin [Mass/Vol] 0.80 mg/dL Normal 0.20-1.00 [facility] Comment on above: Result Comment: For patients on eltrombopag therapy, use of Dimension Mcalister TBIL is not recommended. Performed By: #### L 100.0100, L500.4050, L501.2450 ####[facility] [address] [place], [address] BUN/CRE 13.4 RATIO Normal 10-20 [facility] Comment on above: Performed By: #### L 100.0100, L500.4050, L501.2450 ####[facility] [address] [place], [address] CA,Total 8.7 mg/dL Normal 8.5-10.1 [facility] Comment on above: Performed By: #### L 100.0100, L500.4050, L501.2450 ####[facility] [address] [place], [address] Chloride [Moles/Vol] 102 mmol/L Normal 98-107 [facility] Comment on above: Performed By: #### L 100.0100, L500.4050, L501.2450 ####[facility] [address] [place], [address] CO2 [Moles/Vol] 26.0 mmol/L Normal 21.0-32.0 [facility] Comment on above: Performed By: #### L 100.0100, L500.4050, L501.2450 ####[facility] [address] [place], [address] Creatinine [Mass/Vol] 0.75 mg/dL Normal 0.55-1.02 [facility] Comment on above: Result Comment: The validity of the calculated GFR GFRAA in patients over 70 years has not been determined. Clinical correlation is essential. Performed By: #### L 100.0100, L500.4050, L501.2450 ####[facility] [address] [place], [address] ECRCL 69.28 ml/min Normal [facility] Comment on above: Performed By: #### L 100.0100, L500.4050, L501.2450 ####[facility] [address] [place], [address] EST GFR - AA 99 mL/min Normal >60 [facility] Comment on above: Result Comment: Afri can Kyrgyz GFR Calc Performed By: #### L 100.0100, L500.4050, L501.2450 ####[facility] [address] [place], [address] GAP 8 Normal 5-15 [facility] Comment on above: Performed By: #### L 100.0100, L500.4050, L501.2450 ####[facility] [address] [place], [address] GFR/1.73 sq M.predicted among non-blacks MDRD (S/P/Bld) [Vol rate/Area] 82 mL/min/{1.73_m2} Normal >60 [facility] Comment on above: Result Comment: Non- GFR Calc Performed By: #### L 100.0100, L500.4050, L501.2450 ####[facility] [address] [place], [address] Globulin (S) [Mass/Vol] 5.3 g/dL High 2.2-4.2 [facility] Comment on above: Performed By: #### L 100.0100, L500.4050, L501.2450 ####[facility] [address] [place], [address] Glucose [Mass/Vol] 97 mg/dL Normal 74-106 [facility] Comment on above: Performed By: #### L 100.0100, L500.4050, L501.2450 ####[facility] [address] [place], [address] Potassium [Moles/Vol] 3.6 mmol/L Normal 3.5-5.1 [facility] Comment on above: Result Comment: Slig ht Hemolysis, Result may be falsely increased. Performed By: #### L 100.0100, L500.4050, L501.2450 ####[facility] [address] [place], [address] Sodium [Moles/Vol] 136 mmol/L Normal 136-145 [facility] Comment on above: Performed By: #### L 100.0100, L500.4050, L501.2450 ####[facility] [address] [place], [address] T PROT 7.4 g/dL Normal 6.4-8.2 [facility] Comment on above: Performed By: #### L 100.0100, L500.4050, L501.2450 ####[facility] [address] [place], [address] Urea nitrogen [Mass/Vol] 10 mg/dL Normal 7-18 [facility] Comment on above: Performed By: #### L 100.0100, L500.4050, L501.2450 ####[facility] [address] [place], [address] ECG COMPLETEon 07-28-2024 ECG COMPLETE Ventricular Rate : 9 7 BPM QRS Duration : 74 ms Q-T Interval : 386 ms QTC Calculation(Bazett) : 490 ms Calculated R [place] : 4 degrees Calculated T [place] : 31 degrees ATRIAL FIBRILLATION NONSPECIFIC T WAVE ABNORMALITY ABNORMAL ECG NO PREVIOUS ECGS AVAILABLE POOR DATA QUALITY, INTERPRETATION MAY BE ADVERSELY AFFECTED Confirmed by KENDALL WHYTE MD ([id number]) on 04/04/2025 11:31:14 PM NAME : AMNA SEQUEIRA PID : [id number] : 1955 Gender : Female Race : ORD : [id number] Procedure Date : Jul 28 2024 22:47:04 Edit Date : Apr 04 2025 23:31:16 Diagnosis: ATRIAL FIBRILLATION NONSPECIFIC T WAVE ABNORMALITY ABNORMAL ECG NO PREVIOUS ECGS AVAILABLE POOR DATA QUALITY, INTERPRETATION MAY BE ADVERSELY AFFECTED Confirmed by KENDALL WHYTE MD ([id number]) on 04/04/2025 11:31:14 PM Test Reason : Chest Pain Location : 4 : [facility] Overread By : KENDALL WHYTE MD Edited By : KENDALL WHYTE MD Referred By : , Acquired by : YENNIFER ACOSTA [facility] ED PROV NOTEon 07-28-2024 ED PROV NOTE HNO ID: [id number] Author: BARBARA MEJIA MD Service: Emergency Medicine Author Type: Resident Type: ED Provider Notes Filed: 07/29/2024 00:51 Note Text: ----- Attestation signed by Barbara Mejia MD at 07/29/2024 12:51 AM Attending Note I evaluated the patient and personally participated in the acosta components. I agree with the resident's findings and plan as documented and have discussed the case and management of the patient's care with the resident. Signature: Barbara Mejia MD Date: 07/29/2024 Time: 12:51 AM ----- ED Provider Note Patient Name: Amna Sequeira : 1955 SERVICE DATE: 07/28/24 History Patient presents with: Functional Transfers: Patient arrives as a transfer from [facility] for bowel perforation. Complains of N/V, WBC 1020 and sytolic pressure in the 90s. Hx of pancreatitis. HPI Pt is a 69-year-old female with past medical history significant for PE/DVTs on Coumadin presenting to the emergency department from [facility] for concerns of necrotizing pancreatitis versus contained bowel perforation with abscess to be assessed by surgery. Patient at bedside endorses that she has been having abdominal pain with nausea and vomiting for the last month, reports that she has not been able to keep down fluids or solids and has been vomiting continuously during this time. And has lost approximately 35 pounds. Patient endorses that she saw her primary care physician in regards to the symptoms and initially had an x-ray completed and subsequently went to booster to be evaluated by CT scan. Patient otherwise denies any chest pain, but reports that she has been having worsening GERD like symptoms, denies seeing any blood in her vomit and reports that it just looks like bile. Otherwise, patient denies any shortness of breath, fevers, congestion or runny nose. Patient endorses that the only surgery she has had in the past include total hysterectomy as well as hip/knee replacement on her right side. PAST MEDICAL HISTORY Diagnosis Date Acid reflux Anxiety Chronic pain back,hips, and knees COPD (chronic obstructive pulmonary disease) ([facility]) DVT (deep venous thrombosis) ([facility]) 2005 IBS (irritable bowel syndrome) Insomnia RA (rheumatoid arthritis) ([facility]) PAST SURGICAL HISTORY Procedure Laterality Date CARPAL TUNNEL 2003 right COLONOSCOPY 2008 HYSTERECTOMY HX 1992 PAST SURGICAL HISTORY OF 01/2013 Rt total knee replacement PAST SURGICAL HISTORY OF 2011 Rt hip placement THYROIDECTOMY 09/09/13 TONSILLECTOMY HX FAMILY HISTORY Problem Relation Age of Onset Cancer Brother liver Diabetes Father Diabetes Sister Diabetes Brother Heart Maternal Grandmother Stroke Father Social History Tobacco Use Smoking status: Every Day Current packs/day: 1.00 Average packs/day: 1 pack/day for 20.0 years (20.0 ttl pk-yrs) Types: Cigarettes Smokeless tobacco: Not on file Substance and Sexual Activity Alcohol use: No Drug use: Not on file Sexual activity: Not on file ALLERGIES Allergen Reactions Bactrim [Sulfametho* Rash Macrobid [Nitrofura* Other: See Comments Decreased heart rate Sulfa (Sulfonamide * Hives Review of Systems As mentioned in HPI Physical Exam Vitals BP Pulse Temp Temp src Resp SpO2 Weight Height 07/28/24222607/28/24222607/28/24222607/28/24 22307/28/24222607/28/24222607/28/24222607/28/242226 117/80 (!) 95 36.8 ?C (98.3 ?F) Oral 20 98 % 79.4 kg (175 lb) 1.626 m (5' 4) Physical Exam Constitutional: General: She is not in acute distress. Appearance: She is not ill-appearing. HENT: Head: Normocephalic and atraumatic. Cardiovascular: Rate and Rhythm: Normal rate and regular rhythm. Pulses: Normal pulses. Pulmonary: Effort: Pulmonary effort is normal. No respiratory distress. Abdominal: Palpations: Abdomen is soft. Tenderness: There is right CVA tenderness. There is no left CVA tenderness. Comments: Diffuse abdominal tenderness on physical exam without guarding Skin: Coloration: Skin is not jaundiced. Neurological: Mental Status: She is alert and oriented to person, place, and time. Psychiatric: Behavior: Behavior normal. Diagnostic Testing ED Labs Ordered and Reviewed - No data to display Procedures ED Course / Clinical Impression ED Course as of 07/29/24 0036 Others' Documentation Sun Jul 28, 20242237 Surgery consulted. [KD] 2237 Hypercoag Diagnostic Panel [KD] ED Course User Index [KD] Barbara Mejia MD Clinical Impressions as of 07/29/24 0036 Necrotizing pancreatitis Acute gastric perforation MDM / Disposition / Plan MDM Pt is a 69-year-old female with past medical history significant for PE/DVTs on Coumadin presenting to the emergency depart (more content not included)... Normal [facility] ED PROV NOTE HNO ID: [id number] Author: BARBARA MEJIA MD Service: Emergency Medicine Author Type: Physician Type: ED Provider Notes Filed: 07/28/2024 23:41 Note Text: Brief HPI: Amna Sequeira is a 69 year old female with a PMH as documented below who presents for evaluation. The patient presents from [facility]. The patient has had abdominal pain ongoing x 1 month. She has had vomiting. She has had increasing pain recently. She was seen at [facility] which she was found to have a possible gastric perforation, pseudocyst, necrotizing pancreatitis. Surgery was consulted at [facility] For further workup and management. The patient was accepted by Dr. Perez with a ER to ER transfer. The patient had a blood work sent at the [facility] in which she has found to have a leukocytosis. Lactate of 1.4. Normal creatinine. She was mildly hypotensive there. She got 2 L of normal saline. She also got Zosyn and fluconazole. The patient states she continues to have abdominal pain. Reports nausea as well. PAST MEDICAL HISTORY Diagnosis Date Acid reflux Anxiety Chronic pain back,hips, and knees COPD (chronic obstructive pulmonary disease) ([facility]) DVT (deep venous thrombosis) ([facility]) 2005 IBS (irritable bowel syndrome) Insomnia RA (rheumatoid arthritis) ([facility]) Constitutional: Nontoxic, well-appearing without any respiratory distress. She is conversant and pleasant. She is not in any distress. HEENT: Mucous membranes moist. Neck: Supple. Normal range of motion. Cardiovascular: Heart is regular rate and rhythm without murmurs, rubs or gallops. Pulmonary: Lungs mild scattered expiratory wheeze. Gastrointestinal: Abdomen slightly distended diffusely tender.. Muscle skeletal: Moves all extremities equally and normally. MDM: 69-year-old female history of COPD, DVT on warfarin, rheumatoid arthritis presenting for diffuse abdominal pain and found to have possible gastric perforation, pseudocyst, necrotizing pancreatitis. Transferred to our ED for surgical evaluation accepted by surgery. The patient with stable vitals currently. EKG obtained. We spoke with pharmacy as the patient has received Zosyn and fluconazole. At this time we also added vancomycin. Surgery consulted. The patient mated to surgery for further workup and management. See resident/PA note for disposition details BARBARA MEJIA 07/28/24 2341 Normal [facility] EKGon 07-28-2024 Electrocardiogram Ventricular Rate : 9 6 BPM Atrial Rate : 96 BPM P-R Interval : 130 ms QRS Duration : 78 ms Q-T Interval : 408 ms QTC Calculation(Bazett) : 515 ms Calculated P [place] : 29 degrees Calculated R [place] : 15 degrees Calculated T [place] : 62 degrees SINUS RHYTHM WITH PREMATURE ATRIAL COMPLEXES NONSPECIFIC T WAVE ABNORMALITY ABNORMAL ECG WHEN COMPARED WITH ECG OF 28-Jul-2024 22:47, SINUS RHYTHM HAS REPLACED ATRIAL FIBRILLATION NONSPECIFIC T WAVE ABNORMALITY NO LONGER EVIDENT IN INFERIOR LEADS Confirmed by KENDALL WHYTE MD ([id number]) on 04/04/2025 11:31:08 PM NAME : AMNA SEQUEIRA PID : [id number] : 1955 Gender : Female Race : ORD : Procedure Date : Jul 28 2024 22:47:45 Edit Date : Apr 04 2025 23:31:10 Diagnosis: SINUS RHYTHM WITH PREMATURE ATRIAL COMPLEXES NONSPECIFIC T WAVE ABNORMALITY ABNORMAL ECG WHEN COMPARED WITH ECG OF 28-Jul-2024 22:47, SINUS RHYTHM HAS REPLACED ATRIAL FIBRILLATION NONSPECIFIC T WAVE ABNORMALITY NO LONGER EVIDENT IN INFERIOR LEADS Confirmed by KENDALL WHYTE MD ([id number]) on 04/04/2025 11:31:08 PM Test Reason : Location : : [facility] Overread By : KENDALL WHYTE MD Edited By : KENDALL WHYTE MD Referred By : , Acquired by : YENNIFER ACOSTA Normal [facility] Emergency Department Summary on 07-28-2024 Emergency Department Summary [facility] Medical Records Department [address] [place] [address] Emergency Department Summary 07/28/24 MR#: [id number] Acct: [id number] Name: AMNA SEQUEIRA Rep #: [id number] : 1955 69 From: Toribio Salvador MD PCP: Dr. Galindo Gutierrez MD Status:REG ER Location: ED HPI HPI - GI History of Present Illness Chief Complaint: Abd Pain Narrative Narrative: 69-year-old female past medical history of rheumatoid arthritis presents with 2 months of intermittent nausea and vomiting. She states she has not had a bowel movement in a month. She relates history that she saw her primary care provider, and had an x-ray of her abdomen as well as a CT by her primary care provider and was told that there might be something wrong with her pancreas. Over the last few days, she now has more consistent nausea and vomiting. Whenever she tries to drink water, she vomits it back up. States she is somewhat lightheaded if she stands up too quickly. Past abdominal surgical history includes hysterectomy. She states she is post to see gastroenterology in the next coming weeks. She presents because the nausea and vomiting has gotten worse. She is having bilateral lower quadrant abdominal pain now as well. No blood in her emesis. PFSH PFS Home Medications ???Medication ???Instructions ???Recorded ???Last Taken ???Type Advair 500/50 Mcg Diskus 1 puff inhalation TID 07/29/13 Unknown History Emblex 7.5 mg PO QHS 07/29/13 Unknown History albuterol sulfate 90 mcg/actuation 1 puff inhalation DAILY 07/29/13 Unknown History aerosol inhaler (Ventolin HFA) enoxaparin 100 mg/mL subcutaneous 100 mg subcut Q12@0600,1800 07/29/13 Unknown History syringe fentanyl 25 mcg/hr transdermal 25 mcg TRANSDERM. Q72H 07/29/13 Unknown History patch fluticasone 500 mcg-salmeterol 50 1 puff inhalation BID 07/29/13 Unknown History mcg/dose blistr powdr for inhalation (Advair Diskus) folic acid 1 mg tablet 1 mg PO DAILY@0800 07/29/13 Unknown History hydroxychloroquine 200 mg tablet 200 mg PO BIDCM 07/29/13 Unknown History methocarbamol 750 mg tablet 750 mg PO PRN PRN Anxiety 07/29/13 Unknown History (Robaxin-750) methotrexate sodium 2.5 mg tablet 10 mg PO Q7D 07/29/13 Unknown History montelukast 10 mg tablet 10 mg PO DAILY 07/29/13 Unknown History multivitamin with folic acid 400 1 tab PO DAILY 07/29/13 Unknown History mcg tablet (Thera) sertraline 100 mg tablet 150 mg PO DAILY 07/29/13 Unknown History tiotropium bromide 18 mcg capsule 1 puff inhalation DAILY 07/29/13 Unknown History with inhalation device (Spiriva with HandiHaler) warfarin 2.5 mg tablet (Jantoven) 2.5 mg PO QODAY 07/29/13 Unknown History warfarin 5 mg tablet (Jantoven) 5 mg PO QODAY 07/29/13 Unknown History zolpidem 10 mg tablet (Ambien) 10 mg PO QHS PRN 07/29/13 Unknown History diphenoxylate-atropine 2.5 1 tab PO DAILY 08/23/13 Unknown History mg-0.025 mg tablet oxycodone-acetaminophen 10 mg-325 1 tab PO Q6H PRN PRN Pain #20 tabs 09/10/13 Unknown Rx mg tablet (Percocet) gabapentin 800 mg tablet mg PO 07/28/24 Unknown History isosorbide mononitrate 30 mg 30 mg PO DAILY 07/28/24 Unknown History tablet,extended release 24 hr levothyroxine 175 mcg tablet mcg PO 07/28/24 Unknown History omeprazole 40 mg capsule,delayed 40 mg PO DAILY 07/28/24 Unknown History release oxycodone 10 mg tablet 10 mg PO 07/28/24 Unknown History potassium chloride 20 mEq 20 meq PO DAILY 07/28/24 Unknown History tablet,extended release(part/cryst) (Klor-Con M) prednisone 10 mg tablet mg PO 07/28/24 Unknown History Allergy/AdvReac Type Severity Reaction Status Date / Time Sulfa (Sulfonamide Allergy Hives AND Verified 07/28/24 16:16 Antibiotics) RESP DISTRESS nitrofurantoin AdvReac DECREASED Verified 07/28/24 16:16 (Nitrofurantoin) HEART RATE Social History Smoking Status: Current every day smoker tobacco type: cigarettes ROS ROS ED ROS Narrative Constitutional: No fever, no chills. HEENT: No sore throat. No neck pain. No loss of vision. No rhinorrhea. Cardiovascular: No chest pain. No palpitations. No pedal edema. Respiratory: No cough, no shortness of breath. Abdominal: Bilateral lower quadrant abdominal pain. 2 months of intermittent nausea and vomiting, now more consistent over the last few days with to many episodes to count over the last 24 hours, no hematemesis. States has not had a bowel movement in a month. Genitourinary: No dysuria. No hematuria. Musculoskeletal: No myalgias. No arthralgias. Neurologic: No headaches. No dizziness. Positive lightheadedness when standing up too quickly. Skin: No rash. No change in color. Psychiatric: No depression. No anxiety. EXAM Physical Exam Narrative Exam Narrative: Af (more content not included)... Normal [facility] HISTORY PHYSICALon HISTORY PHYSICAL HNO ID: [id number] Author: BLAIR PEREZ MD Service: General Surgery Author Type: Resident Type: H&P Filed: 08/14/2024 11:50 Note Text: ----- Attestation signed by Blair Perez MD at 08/14/2024 11:50 AM Attending Note I evaluated the patient and personally participated in the acosta components on 07/29/2024 I agree with the resident's findings and plan as documented and have discussed the case and management of the patient's care with the resident. Admit, IV abx, PPI BID and carafate, hold coumadin, begin hep gtt, follow-up repeat CT w/ oral contrast, The patient may need an MRI as well if the CT does not adequately characterize the interface between stomach and pancreas. Consult to Dr. Ireland from [facility]. Findings reviewed with patient and her family. Blair Perez MD Delayed entry ----- HANDP: Emergency General Surgery Service SERVICE DATE: 07/28/2024 SERVICE TIME: 10:57 PM REASON FOR CONSULT: Gastric perforation versus walled off pancreatic necrosis REQUESTING PHYSICIAN: ED Subjective 69 year old female with PMHx of fibromyalgia, DVTs (on warfarin), hypothyroidism and RA who presents to the ED as a transfer from [place] with symptoms of vomiting x 2 months. Patient reports she vomits after everything she eats and drinks and that the vomiting is increased in severity and frequency. She reports she has vomited about 10 times per day. Admits to 30 pound weight loss over the past 2 months. She has been unable to eat due to this vomiting. She denies any abdominal pain at rest but reports pain in her right sided mid abdomen when palpated. She has a history of long-term NSAID use due to her chronic pain as well as takes daily prednisone. She has a tobacco user and is smoking up to 3 packs/day. Denies any alcohol use. No known history of pancreatitis. No known family history of pancreatitis or pancreas issues. She reports acid reflux-like symptoms but has never had an EGD. She does take carafate for acid reflux. Only abdominal surgical history includes a hysterectomy. CTAP shows a air and fluid collection measuring about 3 cm posterior to the stomach and adjacent to the pancreas concerning for possible Posterior gastric Pref with regional abscess versus walled off pancreatic necrosis. Her labs are being uploaded. FUNCTIONAL STATUS: Independent PAST MEDICAL HISTORY Diagnosis Date Acid reflux Anxiety Chronic pain back,hips, and knees COPD (chronic obstructive pulmonary disease) ([facility]) DVT (deep venous thrombosis) ([facility]) 2005 IBS (irritable bowel syndrome) Insomnia RA (rheumatoid arthritis) ([facility]) PAST SURGICAL HISTORY Procedure Laterality Date CARPAL TUNNEL 2003 right COLONOSCOPY 2008 HYSTERECTOMY HX 1993 PAST SURGICAL HISTORY OF 01/2013 Rt total knee replacement PAST SURGICAL HISTORY OF 2011 Rt hip placement THYROIDECTOMY 09/09/13 TONSILLECTOMY HX FAMILY HISTORY Problem Relation Age of Onset Cancer Brother liver Diabetes Father Diabetes Sister Diabetes Brother Heart Maternal Grandmother Stroke Father Social History Tobacco Use Smoking status: Every Day Current packs/day: 1.00 Average packs/day: 1 pack/day for 20.0 years (20.0 ttl pk-yrs) Types: Cigarettes Substance Use Topics Alcohol use: No (Not in a hospital admission) Current Facility-Administered Medications Medication Dose Route Frequency vancomycin 1.25 g in NaCl 0.9% 250 mL (VANCOCIN) 0.015 g/kg/dose INTRAVENOUS ONCE NaCl 0.9% iv flush bag 20 mL INTRAVENOUS PRN Allergies As of Date: 07/28/2024 Allergen Noted Reaction BACTRIM [SULFAMETHOXAZOLE] 10/26/2011 Rash MACROBID [NITROFURANTOIN MONOHYD/*10/26/2011 Other: See Comments SULFA (SULFONAMIDE ANTIBIOTICS) 02/06/2014 Hives Fully Assessed 07/28/2024 COMPLETE REVIEW OF SYSTEMS: GENERAL: denies fevers or chills, positive weight loss HEAD: denies headache or dizziness RESPIRATORY: denies shortness of breath or cough CARDIOVASCULAR: denies chest pain or palpitations GI: Denies abdominal pain, positive vomiting : denies hematuria or dysuria SKIN: denies jaundice or rashes NEURO: denies numbness or weakness PHYSICAL EXAM: GENERAL: resting comfortably, in no acute distress HEENT: normocephalic, atraumatic, EOMI NECK: trachea midline, no JVD LUNGS: Unlabored breathing on RA, equal chest rise bilaterally, no use of accessory muscles CARDIAC: Regular rate as above, extremities warm and well perfused ABDOMEN: Soft, non-tender, non-distended, no masses or organomegaly. No rebound or guarding. EXTREMITIES: KARIMI, No gross deformities SKIN: Skin color, texture, turgor normal NEURO: AANDO, no gross neurological deficits PSYCH: normal mood and affect DATA: Labs: No results for input(s): NA, K, CHLOR, CO2, BUN, C (more content not included)... Normal [facility] Lactic Acidon 07-28-2024 Lactate [Moles/Vol] 1.4 mmol/L Normal 0.4-1.9 [facility] Comment on above: Order Comment: Y Performed By: #### L 503.6005 ####[facility] [address] [facility] [place], [place], [id number] Lipaseon 07-28-2024 Lipase [Catalytic activity/Vol] 154 U/L High 13-75 [facility] Comment on above: Result Comment: Britni centeno note: LIPASE revised reference range effective 23. New Lipase methodology. Expected to produce lower values than the previous assay method. NEW Reference Range: 13 - 75 U/L Performed By: #### L 100.0100, L500.4050, L501.2450 ####[facility] [address] [facility] [place], [place], [id number] Lipase Robbiel-Mariely 07-28-20 24 Lipase [Catalytic activity/Vol] 101 U/L High 16-61 [facility] Comment on above: Order Comment: Monika dye Type: BLOOD SPECIMEN Ordering Facility: [facility] Address: [address] [place] [address] Performed By: #### 3 040-3 #### [facility] CLIA [id number] [address] [place] [address] PT panel Coag (PPP)on 2023 INR Coag (PPP) [Relative time] 1.2 {INR} Normal 0.9-1.3 [facility] Comment on above: Order Comment: Monika dye Type: BLOOD SPECIMEN Ordering Facility: [facility] Address: [address] [place] [address] Result Comment: Jayy min K Antagonist (VKA) Therapeutic Range: INR 2 to 3 (Target INR of 2.5) Note: For patients treated with VKA drugs, such as warfarin, the [employer] 2012 Guideline recommends a therapeutic INR range of 2 to 3 (target INR of 2.5). This recommendation includes high-risk patients with antiphospholipid syndrome with previous arterial or venous thromboembolism, current-generation mechanical or bioprosthetic aortic heart valve replacement. Note: Patients with mechanical aortic valve replacement and additional risk factors for thromboembolic events (atrial fibrillation, previous thromboembolism, LV dysfunction, hypercoagulable conditions) or an older generation mechanical AVR (i.e., ball in-Cage) or any mechanical MVR should have a INR therapeutic range of 2.5 to 3.5 (target INR of 3). Yeni JOSUE, et al. Chest 2012, 141:7S-47S Miri RA, et al. [facility] 2017, 70: 252-289 Performed By: #### 1 4979-9 #### [facility] CLIA [id number] [address] [place] [address] [place] [facility] PT Coag (PPP) [Time] 13.0 s Normal 9.7-13.0 [facility] Comment on above: Order Comment: Monika dye Type: BLOOD SPECIMEN Ordering Facility: [facility] Address: [address] [place] [address] Performed By: #### 1 4979-9 #### [facility] CLIA [id number] [address] [place] TYPE + SCREENon 07-28-2024 ABO A Normal [facility] Comment on above: Order Comment: Speci men Type: BLOOD SPECIMEN Ordering Facility: [facility] Address: [facility] [place] [address] Performed By: #### T SCR #### [facility] CLIA [id number] [address] [place] Rh Nom (Bld) Negative Normal [facility] Comment on above: Order Comment: Speci men Type: BLOOD SPECIMEN Ordering Facility: [facility] Address: [address] [place] [address] Performed By: #### T SCR #### [facility] CLIA [id number] [address] [place] [facility] TYPE AND SCREEN EXPIRATION 07/31/2024 23:59 Normal [facility] Comment on above: Order Comment: Speci men Type: BLOOD SPECIMEN Ordering Facility: [facility] Address: [address] [place] [address] Performed By: #### T SCR #### [facility] CLIA [id number] [address] [place] Urinalysis, Completeon 07-28 BACTERIA 4+ /hpf Normal None Seen [facility] Comment on above: Order Comment: CLEAN CATCH Performed By: #### L 400.0001 ####[facility] [address] [place], [place], [id number] EPI,SQUAMOUS 5-10 SEEN Normal 5-10 [facility] Comment on above: Order Comment: CLEAN CATCH Performed By: #### L 400.0001 ####[facility] [address] [place], [address] Mucus Ql (Urine sed) 1+ /hpf Normal [facility] Comment on above: Order Comment: CLEAN CATCH Performed By: #### L 400.0001 ####[facility] [address] [place], [address] WBC 50-100 SEEN Normal 0-5 [facility] Comment on above: Order Comment: CLEAN CATCH Performed By: #### L 400.0001 ####[facility] [address] [place], [address] BILIRUBIN URINE Negative Normal Negative [facility] Comment on above: Order Comment: CLEAN CATCH Performed By: #### L 400.0001 ####[facility] [address] [place], [address] Clarity (U) Sl. Cloudy Normal Clear [facility] Comment on above: Order Comment: CLEAN CATCH Performed By: #### L 400.0001 ####[facility] [address] [place] [id number] Color (U) Yellow Normal Yellow [facility] Comment on above: Order Comment: CLEAN CATCH Performed By: #### L 400.0001 ####[facility] [address] [place], [address] GLUCOSE, UR Normal Normal Normal [facility] Comment on above: Order Comment: CLEAN CATCH Performed By: #### L 400.0001 ####[facility] [address] [place], [address] KETONE UR 5 mg/dl Abnormal Negative [facility] Comment on above: Order Comment: CLEAN CATCH Performed By: #### L 400.0001 ####[facility] [address] [place], [address] LEUK ESTERASE 100 /ul Abnormal Negative [facility] Comment on above: Order Comment: CLEAN CATCH Performed By: #### L 400.0001 ####[facility] [address] [place], [address] Nitrite Ql (U) Positive Abnormal Negative [facility] Comment on above: Order Comment: CLEAN CATCH Performed By: #### L 400.0001 ####[facility] [address] [place], [address] OCCULT BLOOD-UR 10 /ul Abnormal Negative [facility] Comment on above: Order Comment: CLEAN CATCH Performed By: #### L 400.0001 ####[facility] [address] [place], [address] pH UR 6.5 Normal 5.0 - 8.0 [facility] Comment on above: Order Comment: CLEAN CATCH Performed By: #### L 400.0001 ####[facility] [address] [place], [address] PROT DIPSTX 30 mg/dl Abnormal Negative [facility] Comment on above: Order Comment: CLEAN CATCH Performed By: #### L 400.0001 ####[facility] [address] [place], [address] SP.GR. DIPSTX 1.010 Normal 1.002-1.03 0 [facility] Comment on above: Order Comment: CLEAN CATCH Performed By: #### L 400.0001 ####[facility] [address] [place], [address] UROBILI 1 mg/dl Abnormal Normal [facility] Comment on above: Order Comment: CLEAN CATCH Performed By: #### L 400.0001 ####[facility] [address] [place], [address] RBC 0 SEEN Normal 0-5 [facility] Comment on above: Order Comment: CLEAN CATCH Performed By: #### L 400.0001 ####[facility] [address] [place], [address] CT ABDOMEN/PELVIS Won 2023 CT ABDOMEN/PELVIS [address] [address] Patient: AMNA SEQUEIRA Phone#: : 1955 Age: 69 Gender: F Pt. Type: Out Account: [id number] Location: 052 Ordering: GALINDO GUTIERREZ Exam Date: 07/09/2024/13:22 Family Phys: Charge Code: [id number] Physician: Horry Order #: [id number] Dose#: PROCEDURE: CT ABDOMEN/PELVIS WITH CONTRAST COMPARISON: [facility], CT, CHEST PE W CON, 06/28/2022, 21:57. INDICATIONS: Weight loss. Vomiting. TECHNIQUE: After obtaining the patient's consent, CT images were created with non-ionic intravenous contrast material. All CT scans at this facility use dose modulation, iterative reconstruction, and/or weight based dosing when appropriate to reduce radiation dose to as low as reasonably achievable. IV CONTRAST: Omnipaque 350,80ml TOTAL DOSE: 26.00 CTDIvol(mGy) FINDINGS: LIVER: Normal. No enlargement, atrophy, abnormal density, or significant focal lesion. BILIARY: Normal. No visible dilatation or calcification. PANCREAS: Multiple hypoattenuating pancreatic foci are present. The largest at the tail of the pancreas is 6.3 x 3.9 centimeters. Two smaller foci at the pancreatic head and neck measure 2.8 x 2.4 2.5 x 1.8 centimeters respectively. Fat stranding is present interposed between the pancreatic hypoattenuating foci and gastric body. SPLEEN: Normal. No enlargement or focal lesion. KIDNEYS: Multiple bilateral renal cysts are present. There is no evidence of hydronephrosis. ADRENALS: Normal. No mass or enlargement. AORTA/VASCULAR: Inferior vena cava basket is present. Calcification of the aorta is present. RETROPERITONEUM: Normal. No mass or adenopathy. BOWEL/MESENTERY: The duodenal sweep is 3.6 centimeters in diameter and fluid-filled. ABDOMINAL WALL: Normal. No mass or hernia. URINARY BLADDER: Normal. No visible focal wall thickening, lesion, or calculus. PELVIC NODES: Normal. No adenopathy. PELVIC ORGANS: The uterus is absent. Trace free fluid is present in the pelvis. Continued Report - Page 2 of 2 Patient: AMNA SEQUEIRA Phone#: : 1955 Age: 69 Gender: F Pt. Type: Out Account: [id number] Location: 052 Ordering: GALINDO GUTIERREZ Exam Date: 07/09/2024/13:22 Family Phys: Charge Code: [id number] Physician: Horry Order #: [id number] Dose#: BONES: Severe degenerative changes of the spine are present. Disc space narrowing and vacuum phenomenon is present at L5-S1. LUNG BASES: Normal. No visible pulmonary or pleural disease. OTHER: Negative. CONCLUSION: 1. Hypoattenuating pancreatic foci are present. The largest is 6.3 centimeters in diameter. These foci have developed since the prior exam of June 28, 2022. Anterior peripancreatic fat stranding is present. Pseudocysts versus cystic neoplasm should be considered. 2. Bilateral renal cysts. Dictated by: Inessa Marc MD on 07/09/2024 at 15:08 Approved by: Inessa Marc MD on 07/09/2024 at 15:17 Normal [facility] AMYLASEon 07-03-2024 Amylase [Catalytic activity/Vol] 63 U/L Normal 21-101 [facility] Comment on above: Performed By: #### 1 0231, 2599 #### [facility] [place] [address] [place] [employer] Tender: Braulio Roach MD CBC (INCLUDES DIFF/PLT)on Basophils (Bld) [#/Vol] 0.097 10*3/uL Normal 0-200 [facility] Comment on above: Performed By: #### 1 0231, 7291 #### [facility] [address], [address] [place] [address] [place] [employer]ender: Braulio Roach MD Basophils/100 WBC (Bld) 0.6 % Normal [facility] Comment on above: Performed By: #### 1 0231, 4226 #### [facility] [place] [address] [place] [employer]: Braulio Roach MD Eosinophils (Bld) [#/Vol] 0.032 10*3/uL Normal 15-500 [facility] Comment on above: Performed By: #### 1 0231, 6399 #### [facility] of [address], [address] [place] [address] [employer]ender: Braulio Roach MD Eosinophils/100 WBC (Bld) 0.2 % Normal [facility] Comment on above: Performed By: #### 1 0231, 6399 #### [facility] of [address], [address] [place] [address] [employer]ender: Braulio Roach MD Erythrocyte distribution width (RBC) [Ratio] 20.6 % High 11.0-15.0 [facility] Comment on above: Performed By: #### 1 0231, 6399 #### [facility] of [address], [address] [place] [address] [place] [employer]ender: Braulio Roach MD Hematocrit (Bld) [Volume fraction] 39.4 % Normal 35.0-45.0 [facility] Comment on above: Performed By: #### 1 0231, 6399 #### [facility] of [address], [address] [place] [address] [employer]ender: Braulio Roach MD Hemoglobin (Bld) [Mass/Vol] 11.4 g/dL Low 11.7-15.5 [facility] Comment on above: Performed By: #### 1 0231, 6399 #### [facility] of [address], [address] [place] [address] [employer]ender: Braulio Roach MD Lymphocytes (Bld) [#/Vol] 0.713 10*3/uL Low 850-3900 [facility] Comment on above: Performed By: #### 1 0231, 6399 #### [facility] of [address], [address] [place] [address] [employer] Tender: Braulio Roach MD Lymphocytes/100 WBC (Bld) 4.4 % Normal [facility] Comment on above: Performed By: #### 1 0231, 6399 #### [facility] of [address], [address] [place] [address] [employer]ender: Braulio Roach MD MCH (RBC) [Entitic mass] 22.6 pg Low 27.0-33.0 [facility] Comment on above: Performed By: #### 1 0231, 6399 #### [facility] of [place] [address] [place] [employer]ender: Braulio Roach MD MCHC (RBC) [Mass/Vol] 28.9 g/dL Low 32.0-36.[address] [facility] Comment on above: Performed By: #### 1 023, 6399 #### [facility] of [place] [address] [place] [employer]: Braulio Roach MD MCV (RBC) [Entitic vol] 78.2 fL Low 80.0-100.0 [facility] Comment on above: Performed By: #### 1 230, 6399 #### [facility] of [place] [address] [place] [employer]ender: Braulio Roach MD Monocytes (Bld) [#/Vol] 0.454 10*3/uL Normal 200-950 [facility] Comment on above: Performed By: #### 1 0231, 6399 #### [facility] of [place] [address] [place] [employer]ender: Braulio Roach MD Monocytes/100 WBC (Bld) 2.8 % Normal [facility] Comment on above: Performed By: #### 1 023, 6399 #### [facility] of [place] [address] [employer]: Braulio Roach MD Neutrophils (Bld) [#/Vol] 14.904 10*3/uL High 3009-8548 [facility] Comment on above: Performed By: #### 1 0231, 6399 #### [facility] of [place] [address] [place] [employer]ender: Braulio Roach MD Neutrophils/100 WBC (Bld) 92 % Normal [facility] Comment on above: Performed By: #### 1 0231, 6399 #### [facility] of [address], [address] [place] [address] Gill [employer] Tender: Braulio Roach MD Platelet mean volume (Bld) [Entitic vol] 9.2 fL Normal 7.5-12.5 [facility] Comment on above: Performed By: #### 1 0231, 6399 #### [facility] of [address], [address] [place] [address] Gill [employer] Tender: Braulio Roach MD Platelets (Bld) [#/Vol] 754 10*3/uL High 140-400 [facility] Comment on above: Performed By: #### 1 0231, 6399 #### [facility] of [address], [address] [place] [address] [employer] Tender: Braulio Roach MD RBC (Bld) [#/Vol] 5.04 10*6/uL Normal 3.80-5.10 [facility] Comment on above: Performed By: #### 1 0231, 6399 #### [facility] of [address], [address] [place] [address] Gill [employer] Tender: Braulio Roach MD WBC (Bld) [#/Vol] 16.2 10*3/uL High 3.8-10.8 [facility] Comment on above: Performed By: #### 1 0231, 6399 #### [facility] of [place] [address] [place] [employer] Tender: Braulio Roach MD [facility] 07-03-2024 Albumin [Mass/Vol] 3.2 g/dL Low 3.6-5.1 [facility] Comment on above: Performed By: #### 1 0231, 6399 #### [facility] of [place] [address] [place] [employer]ender: Braulio Roach MD Albumin/Globulin [Mass ratio] 0.8 {ratio} Low 1.0-2.5 [facility] Comment on above: Performed By: #### 1 0231, 6399 #### [facility] of [address], [address] [place] [address] Gill [employer] Tender: Braulio oRach MD ALP [Catalytic activity/Vol] 88 U/L Normal 37-153 [facility] Comment on above: Performed By: #### 1 0231, 6399 #### [facility] of [address], [address] [place] [address] Gill [employer] Tender: Braulio Roach MD ALT [Catalytic activity/Vol] 10 U/L Normal 6-29 [facility] Comment on above: Performed By: #### 1 0231, 6399 #### [facility] of [address], [address] [place] [address] Gill Box Tender: Braulio Roach MD AST [Catalytic activity/Vol] 13 U/L Normal 10-35 [facility] Comment on above: Performed By: #### 1 0231, 6399 #### [facility] of [address], [address] [place] [address] Gill [employer] Tender: Braulio Roach MD Bilirubin [Mass/Vol] 0.2 mg/dL Normal 0.2-1.2 [facility] Comment on above: Performed By: #### 1 0231, 6399 #### [facility] of [place] [address] [place] [employer] Tender: Braulio Roach MD Calcium [Mass/Vol] 9.0 mg/dL Normal 8.6-10.4 [facility] Comment on above: Performed By: #### 1 0231, 6399 #### [facility] of [place] [address] [place] [employer] Tender: Braulio Roach MD Chloride [Moles/Vol] 103 mmol/L Normal 98-110 [facility] Comment on above: Performed By: #### 1 0231, 6399 #### [facility] of [place] [address] [place] [employer]ender: Braulio Roach MD CO2 [Moles/Vol] 15 mmol/L Low 20-32 [facility] Comment on above: Result Comment: Angelica ection tube is incompletely filled. CO2 result may be decreased. Performed By: #### 1 0231, 6399 #### [facility] [address], [address] [place] [address] [employer] Tender: Braulio Roach MD Creatinine [Mass/Vol] 1.08 mg/dL High 0.50-1.[address] [facility] Comment on above: Performed By: #### 1 0231, 6399 #### [facility] [address], [address] [place] [address] Gill Box Tender: Braulio Roach MD GFR/1.73 sq M.predicted among non-blacks MDRD (S/P/Bld) [Vol rate/Area] 56 mL/min/{1.73_m2} Low > OR = 60 [facility] Comment on above: Performed By: #### 1 0231, 6399 #### [facility] [address], [address] [place] [address] Gill Box Tender: Braulio Roach MD Globulin (S) [Mass/Vol] 4.2 g/dL High 1.9-3.7 [facility] Comment on above: Performed By: #### 1 0231, 6399 #### [facility] [place] [address] [place] [employer] Tender: Braulio Roach MD Glucose [Mass/Vol] 108 mg/dL High 65-99 [facility] Comment on above: Result Comment: Fasting reference interval For someone without known diabetes, a glucose value between 100 and 125 mg/dL is consistent with prediabetes and should be confirmed with a follow-up test. Performed By: #### 1 0231, 6399 #### [facility] [address], [address] [place] [address] Gill [employer] Tender: Braulio Roach MD Potassium [Moles/Vol] 3.6 mmol/L Normal 3.5-5.[address] [facility] Comment on above: Performed By: #### 1 0231, 6399 #### [facility] [place] [address] Gill [employer] Tender: Braulio Roach MD Protein [Mass/Vol] 7.4 g/dL Normal 6.1-8.1 [facility] Comment on above: Performed By: #### 1 0231, 6399 #### [facility] of [address], [address] [place] [address] Gill Box Tender: Braulio Roach MD Sodium [Moles/Vol] 135 mmol/L Normal 135-146 [facility] Comment on above: Performed By: #### 1 0231, 6399 #### [facility] of [address], [address] [place] [address] Gill Box Tender: Braulio Roach MD Urea nitrogen [Mass/Vol] 15 mg/dL Normal 7-25 [facility] Comment on above: Performed By: #### 1 0231, 6399 #### [facility] [address], [address] [place] [address] Gill Box Tender: Braulio Roach MD Urea nitrogen/Creatinine [Mass ratio] 14 mg/mg Normal 6-22 [facility] Comment on above: Performed By: #### 1 0231, 6399 #### [facility] of [place] [address] [place] [employer] Tender: Braulio Roach MD ABDOMEN 2 VIEWSon 07-02-2024 ABDOMEN 2 VIEWS [place] [address] Patient: AMNA ESQUEIRA Phone#: : 1955 Age: 69 Gender: F Pt. Type: Out Account: [id number] Location: [facility] Ordering: GALINDO GUTIERREZ Exam Date: 07/02/2024/15:08 Family Phys: Charge Code: [id number] Physician: Horry Order #: [id number] Dose#: CORRECTION Corrected incomplete sentence. Corrected on: 07/08/2024; PROCEDURE: ABDOMEN 2 VIEWS COMPARISON: None. INDICATIONS: Loss of appetite. FINDINGS: BOWEL GAS PATTERN: Normal. No abnormal dilation or deviation. CALCIFICATIONS: None significant. OTHER: Inferior vena cava basket is. There is mild curvature spine the. Right hip prosthesis is present. CONCLUSION: 1. Nonspecific gas pattern. Dictated by: Inessa Marc MD on 07/02/2024 at 17:27 Approved by: Inessa Marc MD on 07/02/2024 at 17:29 Dictated by: Inessa Marc MD on 07/08/2024 at 10:05 Approved by: Inessa Marc MD on 07/08/2024 at 10:05 Normal [facility] PT/INR DAILY PATIENT ON COUM ADINon 05-26-2024 INR Coag (PPP) [Relative time] 5.1 {INR} Critically high 0.8 - 1.2 [facility] Comment on above: Result Comment: { CA LLED TO [place]/MAGGIE 1458 { READ BACK BY [id number] THE HEMOSIL THROMBOPLASTIN REAGENT USED IN THE PROTHROMBIN TIME TEST INTERACTS WITH THE DRUG CUBICIN (DAPTOMYCIN) AND WILL RESULT IN FALSELY ELEVATED PT / INR RESULTS. INR INTERPRETATION INR INDICATION PREVENTION AND TREATMENT OF THROMBOEMBOLISM ASSOCIATED WITH: 2.0 - 3.0 ATRIAL FIBRILLATION, BIOPROSTHETIC HEART VALVES, PULMONARY EMBOLISM, VENOUS THROMBOSIS, SYSTEMIC EMBOLISM POST MYOCARDIAL INFARCTION 2.5 - 3.5 MECHANICAL HEART VALVES Performed By: #### 2 61473 #### [facility],[address] [place] [address] PT-COUMADIN 54.7 sec High 9.3 - 14.1 [facility] Comment on above: Performed By: #### 2 66359 #### [facility],[address] [place], [place] [address] CULTURE BLOODon 09-29-2023 Bacteria identified Cx Nom (Bld) NO GROWTH OBSERVED AFTER 5 DAYS Normal [facility] Comment on above: Performed By: #### 2 524-7 #### [facility] [address] [place] [address] Gill Box Tender - [place] SKINNER [id number] URINE OXYCODONE CONFIRMATION RANDOMon 09-28-2023 Oxycodone Negative Normal Utxtty=755 [facility] Comment on above: Performed By: #### 2 4336-0 #### [facility] [address] [place] [address] [employer]ender - [place] HARTMANIA [id number] Performed for [facility] [address] [place] [address] Oxycodone/Oxymorphone Confirm Positive Abnormal Pihguh=514 [facility] Comment on above: Result Comment: Test includes Oxycodone and Oxymorphone Performed By: #### 2 4336-0 #### [facility] [address] [place] [address] [employer] Box Tender - [place] SKINNER [id number] Performed for [facility] [address] [place] [address] Oxymorphone Positive Abnormal [facility] Comment on above: Performed By: #### 2 4336-0 #### [facility] [address] [place] [address] Gill [employer] Tender - [place] Maldonado MINNIEIA [id number] Performed for [facility] [address] [place] [address] Oxymorphone Confirm 171 ng/mL Normal Gvzxle=676 [facility] Comment on above: Result Comment: Oxym orphone detected; this finding is consistent with use of medications that include Numorphan, Opana, or drugs containing Oxycodone, or generic formulations. Drugs listed are automotive sales representative of common sources of the compound detected and are not intended to include all possible sources. Performed By: #### 2 4336-0 #### [facility] [address] [place] [address] Gill Box Tender - [place] [facility] [id number] Performed for [facility] [address] [place] [address] Please Note: Comment Normal [facility] Comment on above: Result Comment: Drug -test results should be interpreted in the context of clinical information. Patient metabolic variables, specific drug chemistry, and specimen characteristics can affect test outcome. Technical consultation is available if a test result is inconsistent with an expected outcome. ([email or web address] or call toll-free [phone]) . Drug brands, if listed herein, are trademarks of their respective owners. Performed By: #### 2 4336-0 #### [facility] [address] [place] [address] Gill Box Tender - [place] HARTMANIA [id number] Performed for [facility] [address] [place] [address] Basic metabolic 2000 panelon 09-25-2023 Anion gap [Moles/Vol] 5.0 mmol/L Normal <=15.0 [facility] Comment on above: Performed By: #### 1 9123-9, LIPASE, 63725-0 #### [facility] [address] [place] [address] Gill Box Tender - [place] SKINNER [id number] Calcium [Mass/Vol] 7.2 mg/dL Low 8.5-10.1 [facility] Comment on above: Performed By: #### 1 9123-9, LIPASE, 29624-3 #### [facility] [address] [place] [address] Gill Box Tender - [place] HARTMANIA [id number] Chloride [Moles/Vol] 110 mmol/L High 98-107 [facility] Comment on above: Performed By: #### 1 9123-9, LIPASE, 31542-2 #### [facility] [address] [place] [address] Gill Box Tender - [place] HARTMANIA [id number] CO2 [Moles/Vol] 24 mmol/L Normal 21-32 [facility] Comment on above: Performed By: #### 1 9123-9, LIPASE, 64172-3 #### [facility] [address] [place] [address] [employer] [facility] [place] [id number] Creatinine [Mass/Vol] 0.64 mg/dL Normal 0.51-0.95 [facility] Comment on above: Performed By: #### 1 9123-9, LIPASE, 75609-5 #### [facility] [address] [place] [address] [employer] - [facility] [id number] GFR/1.73 sq M.predicted MDRD (S/P/Bld) [Vol rate/Area] mL/min/{1.73_m2} Normal >=59 [facility] Comment on above: Performed By: #### 1 23-9, LIPASE, 64750-1 #### [facility] [address] [place] [address] [employer] - [facility] SUSANNE [id number] Glucose [Mass/Vol] 81 mg/dL Normal 74-106 [facility] Comment on above: Performed By: #### 1 23-9, LIPASE, 23090-0 #### [facility] [address] [place] [address] [employer] - [facility] [id number] HGFR GLOMERULAR FILTRATIO N RATE INTERPRETATION~The eGFR is calculated using the MDRD equation.~This equation has been validated in patients with chronic kidney disease;~however, it underestimates the GFR in healthy patients with GFR's over 60 mL/min.~The equation is not valid in children under the age of 18.~NOTE: Criteria for Chronic Kidney Disease:~ ~1. Kidney damage for at least three months, as defined~by structural or functional abnormalities of the kidney,~with or without decreased glomerular filtration rate, manifested by either:~* Pathological abnormalities or~* Markers of Kidney damage, including abnormalities in~the composition of the blood or urine or abnormalities in imaging tests.~ ~2. GFR <60 mL/min/1.73 m squared for at least three months, with or without kidney damage.~ Normal [facility] Comment on above: Performed By: #### 1 23-9, LIPASE, 03283-4 #### [facility] [address] [place] [address] [employer] - [facility] SUSANNE [id number] Potassium [Moles/Vol] 3.4 mmol/L Low 3.5-5.1 [facility] Comment on above: Performed By: #### 1 23-9, LIPASE, 96720-9 #### [facility] [address] [place] [address] [employer] [facility] [place] [id number] Sodium [Moles/Vol] 139 mmol/L Normal 136-145 [facility] Comment on above: Performed By: #### 1 9123-9, LIPASE, 25318-2 #### [facility] [address] [place] [address] [employer] [facility] [place] [id number] Urea nitrogen [Mass/Vol] 5 mg/dL Low - [facility] Comment on above: Performed By: #### 1 9123-9, LIPASE, 06202-1 #### [facility] [address] [place] [address] [employer] [facility] [place] [id number] CBC W Auto Differential pane l (Bld)on 09-25-2023 Basophils (Bld) [#/Vol] 0.06 10*3/uL Normal <=0.70 [facility] Comment on above: Performed By: #### 2 524-7 #### [place] [address] [place] [address] [facility] [employer] [facility] [place] [id number] Basophils/100 WBC (Bld) 0.7 % Normal <=2.0 [facility] Comment on above: Performed By: #### 2 524-7 #### [facility] [address] [place] [address] [employer] [facility] [place] [id number] Eosinophils (Bld) [#/Vol] 0.16 10*3/uL Normal <=0.70 [facility] Comment on above: Performed By: #### 2 524-7 #### [facility] [address] [place] [address] [employer] [facility] [place] [id number] Eosinophils/100 WBC (Bld) 1.8 % Normal <=10.0 [facility] Comment on above: Performed By: #### 2 524-7 #### [facility] [address] [place] [address] [employer] [facility] [place] [id number] Erythrocyte distribution width (RBC) [Entitic vol] 51.8 fL High 36.4-46.3 [facility] Comment on above: Performed By: #### 2 524-7 #### [place] [address] [employer] [facility] [place] [id number] Hematocrit (Bld) [Volume fraction] 32.7 % Low 37.0-47.0 [facility] Comment on above: Performed By: #### 2 524-7 #### [place] [address] [employer] [facility] [place] [id number] Hemoglobin (Bld) [Mass/Vol] 9.9 g/dL Low 12.0-16.0 [facility] Comment on above: Performed By: #### 2 524-7 #### [place] [address] [employer] [facility] [place] CLIA [id number] Immature granulocytes (Bld) [#/Vol] 0.05 10*3/uL Normal <=0.10 [facility] Comment on above: Performed By: #### 2 524-7 #### [place] [address] [employer] [facility] [place] CLIA [id number] Immature granulocytes/100 WBC (Bld) 0.60 % Normal <=1.50 [facility] Comment on above: Performed By: #### 2 524-7 #### [place] [address] [employer] [facility] [place] CLIA [id number] Lymphocytes (Bld) [#/Vol] 1.78 10*3/uL Normal 1.20-3.40 [facility] Comment on above: Performed By: #### 2 524-7 #### [place] [address] [employer] [facility] [place] CLIA [id number] Lymphocytes/100 WBC (Bld) 19.7 % Low 20.0-40.0 [facility] Comment on above: Performed By: #### 2 524-7 #### [place] [address] [facility]. [place] [address] [employer] [place] [id number] MCH (RBC) [Entitic mass] 22.1 pg Low 27.0-31.0 [facility] Comment on above: Performed By: #### 2 524-7 #### [address] [place] [address] [employer] [facility] [place] [id number] MCHC (RBC) [Mass/Vol] 30.3 g/dL Low 32.0-36.0 [facility] Comment on above: Performed By: #### 2 524-7 #### [place] [address] [employer] [facility] [place] [id number] MCV (RBC) [Entitic vol] 73.0 fL Low 80.0-100.0 [facility] Comment on above: Performed By: #### 2 524-7 #### [place] [address] [employer] [facility] [place] [id number] Monocytes (Bld) [#/Vol] 0.66 10*3/uL High 0.10-0.60 [facility] Comment on above: Performed By: #### 2 524-7 #### [place] [address] [employer] [facility] [place] [id number] Monocytes/100 WBC (Bld) 7.3 % Normal <=8.0 [facility] Comment on above: Performed By: #### 2 524-7 #### [place] [address] [employer] [facility] [place] [id number] Neutrophils (Bld) [#/Vol] 6.31 10*3/uL Normal 1.40-6.50 [facility] Comment on above: Performed By: #### 2 524-7 #### [facility] [address] [place] [address] [employer] [facility] [place] [id number] Neutrophils/100 WBC (Bld) 69.9 % Normal 50.0-70.0 [facility] Comment on above: Performed By: #### 2 524-7 #### [facility] [address] [place] [address] [employer] [facility] [place] [id number] Nucleated RBC (Bld) [#/Vol] 0.00 10*3/uL Normal <=0.10 [facility] Comment on above: Performed By: #### 2 524-7 #### [address] [place] [address] [employer] [facility] [place] [id number] Platelet mean volume (Bld) [Entitic vol] 8.5 fL Low 9.0-13.0 [facility] Comment on above: Performed By: #### 2 524-7 #### [facility] [address] [place] [address] [employer] [facility] [place] [id number] Platelets (Bld) [#/Vol] 395 10*3/uL Normal 130-400 [facility] Comment on above: Performed By: #### 2 524-7 #### [place] [address] [place] [address] [employer] [facility] [place] [id number] RBC (Bld) [#/Vol] 4.48 10*6/uL Normal 4.00-6.30 [facility] Comment on above: Performed By: #### 2 524-7 #### [facility] [address] [place] [address] [employer] [facility] [place] [id number] WBC (Bld) [#/Vol] 9.02 10*3/uL Normal 4.80-10.80 [facility] Comment on above: Performed By: #### 2 524-7 #### [address] [facility] [place] [address] [employer] [place] [id number] Hepatic function 2000 panelo n 09-25-2023 Albumin [Mass/Vol] 2.4 g/dL Low 3.4-5.0 [facility] Comment on above: Performed By: #### 1 9123-9, LIPASE, 64876-5 #### [facility] [address] [place] [address] [employer] [place] [id number] Albumin/Globulin [Mass ratio] 0.6 {ratio} Low 1.0-2.2 [facility] Comment on above: Performed By: #### 1 9123-9, LIPASE, 55223-8 #### [facility] [address] [place] [address] [employer] [place] [id number] ALP [Catalytic activity/Vol] 82 U/L Normal 50-136 [facility] Comment on above: Performed By: #### 1 9123-9, LIPASE, 03057-7 #### [facility] [address] [place] [address] [employer] [facility] [place] CLIA [id number] ALT [Catalytic activity/Vol] 24 U/L Normal 14-59 [facility] Comment on above: Performed By: #### 1 9123-9, LIPASE, 35803-0 #### [facility] [address] [place] [address] [employer] [facility] [place] CLIA [id number] AST [Catalytic activity/Vol] 25 U/L Normal 15-37 [facility] Comment on above: Performed By: #### 1 9123-9, LIPASE, 50151-8 #### [facility] [address] [place] [address] [employer] [facility] [place] [id number] Bilirubin [Mass/Vol] 0.5 mg/dL Normal 0.2-1.0 [facility] Comment on above: Performed By: #### 1 9123-9, LIPASE, 86511-7 #### [facility] [address] [place] [address] [employer] [place] [id number] Bilirubin.conjugated [Mass/Vol] 0.2 mg/dL Normal <=0.2 [facility] Comment on above: Performed By: #### 1 9123-9, LIPASE, 34261-6 #### [facility] [address] [place] [address] [employer] [facility] [place] [id number] Globulin (S) [Mass/Vol] 3.9 g/dL High 2.4-3.8 [facility] Comment on above: Performed By: #### 1 23-9, LIPASE, 10182-9 #### [place] [address] [place] [address] [employer] [place] [id number] Protein [Mass/Vol] 6.3 g/dL Low 6.4-8.2 [facility] Comment on above: Performed By: #### 1 9123-9, LIPASE, 50783-1 #### [facility] [address] [place] [address] [employer] [place] [id number] MAGNESIUMon 09-25-2023 Magnesium [Mass/Vol] 2.0 mg/dL Normal 1.6-2.6 [facility] Comment on above: Performed By: #### 1 9123-9, LIPASE, 88340-4 #### [place] [address] [place] [address] [employer] [place] [id number] PHOSPHORUSon 09-25-2023 Phosphate [Mass/Vol] 2.3 mg/dL Low 2.5-4.9 [facility] Comment on above: Performed By: #### 1 9123-9, LIPASE, 85277-5 #### [facility] [address] [place] [address] [employer] [place] [id number] PT Coag (PPP) [Time]on 09-25 HPTINR INR REFERENCE RANGE INTERPRETATION Patients on Coumadin 2.0 - 3.0 Patients with mechanical heart valves 2.5 - 3.5 Normal [facility] Comment on above: Performed By: #### 2 524-7 #### [place] [address] [place] [address] [employer] [place] [id number] INR Coag (PPP) [Relative time] 3.4 {INR} High 0.8-1.1 [facility] Comment on above: Performed By: #### 2 524-7 #### [address] [place] [address] [employer] [place] [id number] PT with INRon 09-25-2023 PT Coag (PPP) [Time] 32.5 s High 9.3-11.5 [facility] Comment on above: Performed By: #### 2 524-7 #### [address] [place] [address] [employer] [place] [id number] 25-hydroxyvitamin D [Mass/Vo l]on 09-24-2023 25-hydroxyvitamin D3 [Mass/Vol] 32.1 ng/mL Normal 30.0-100.0 [facility] Comment on above: Performed By: #### 1 9123-9, LIPASE, 04304-3 #### [address] [place] [address] [employer] [place] [id number] HVITD VITAMIN D INTERPRETA TION VITAMIN D STATUS RANGE DEFICIENCY <20 ng/mL INSUFFICIENCY 20-30 ng/mL SUFFICIENCY 30-100 ng/mL TOXICITY >100 ng/mL Normal [facility] Comment on above: Performed By: #### 1 9123-9, LIPASE, 03596-0 #### [address] [place] [address] [employer] [place] [id number] ABDOMEN KUB PORTABLEon 09-24 ABDOMEN KUB PORTABLE EXAM: ABDOMEN KUB PORTABLE HISTORY: UNSPECIFIED ABDOMINAL PAIN COMPARISON: None. TECHNIQUE: One view of the abdomen was obtained. FINDINGS: An IVC filter is noted. A right total hip arthroplasty is partially imaged. There is a nonspecific bowel gas pattern without evidence of bowel obstruction. A supine view is suboptimal for evaluation of intraperitoneal free air though none is seen. The imaged lung bases are clear. No acute osseous abnormality is seen. Surgical clips are seen within the pelvis. IMPRESSION: 1. Nonspecific bowel gas pattern without evidence of bowel obstruction. Normal [facility] Basic metabolic 2000 panelon 09-24-2023 Anion gap [Moles/Vol] 4.0 mmol/L Normal <=15.0 [facility] Comment on above: Performed By: #### 2 4336-0 #### [facility] [address] [place] [address] [employer] [place] [id number] Performed for [facility] [address] [place] [address] Calcium [Mass/Vol] 7.9 mg/dL Low 8.5-10.1 [facility] Comment on above: Performed By: #### 2 4336-0 #### [facility] [address] [place] [address] [employer] [place] [id number] Performed for [facility] [address] [place] [address] Chloride [Moles/Vol] 111 mmol/L High 98-107 [facility] Comment on above: Performed By: #### 2 4336-0 #### [facility] [address] [place] [address] [employer] [place] [id number] Performed for [facility] [address] [place] [address] CO2 [Moles/Vol] 27 mmol/L Normal 21-32 [facility] Comment on above: Performed By: #### 2 4336-0 #### [facility] [address] [place] [address] [employer] [place] [id number] Performed for [facility] [address] [place], [place] [address] Creatinine [Mass/Vol] 0.70 mg/dL Normal 0.51-0.95 [facility] Comment on above: Performed By: #### 2 4336-0 #### [facility] [address] [place] [address] [employer] [place] [id number] Performed for [facility] [address] [place], [place] [address] GFR/1.73 sq M.predicted MDRD (S/P/Bld) [Vol rate/Area] mL/min/{1.73_m2} Normal >=59 [facility] Comment on above: Performed By: #### 2 4336-0 #### [facility] [address] [place] [address] [employer] [place] [id number] Performed for [facility] [address] [place], [place] [address] Glucose [Mass/Vol] 101 mg/dL Normal 74-106 [facility] Comment on above: Performed By: #### 2 4336-0 #### [facility] [address] [place] [address] [employer] [place] [id number] Performed for [facility] [address] [place], [place] [address] HGFR GLOMERULAR FILTRATIO N RATE INTERPRETATION~The eGFR is calculated using the MDRD equation.~This equation has been validated in patients with chronic kidney disease;~however, it underestimates the GFR in healthy patients with GFR's over 60 mL/min.~The equation is not valid in children under the age of 18.~NOTE: Criteria for Chronic Kidney Disease:~ ~1. Kidney damage for at least three months, as defined~by structural or functional abnormalities of the kidney,~with or without decreased glomerular filtration rate, manifested by either:~* Pathological abnormalities or~* Markers of Kidney damage, including abnormalities in~the composition of the blood or urine or abnormalities in imaging tests.~ ~2. GFR <60 mL/min/1.73 m squared for at least three months, with or without kidney damage.~ Normal [facility] Comment on above: Performed By: #### 2 4336-0 #### [facility] [address] [place], [place] [address] [employer] [place] [id number] Performed for [facility] [address] [place], [place] [address] Potassium [Moles/Vol] 3.3 mmol/L Low 3.5-5.1 [facility] Comment on above: Performed By: #### 2 4336-0 #### [facility] [address] [place] [address] [employer] [place] [id number] Performed for [facility] [address] [place], [place] [address] Sodium [Moles/Vol] 142 mmol/L Normal 136-145 [facility] Comment on above: Performed By: #### 2 4336-0 #### [facility] [address] [place] [address] [employer] [place] [id number] Performed for [facility] [address] [place], [place] [address] Urea nitrogen [Mass/Vol] 9 mg/dL Normal 7-17 [facility] Comment on above: Performed By: #### 2 4336-0 #### [facility] [address] [place], [place] [address] [employer] [place] [id number] Performed for [facility] [address] [place], [place] [address] CBC W Auto Differential pane l (Bld)on 09-24-2023 Basophils (Bld) [#/Vol] 0.08 10*3/uL Normal <=0.70 [facility] Comment on above: Performed By: #### 2 4336-0 #### [facility] [address] [place], [place] [address] [employer] [place] [id number] Performed for [facility] [address] [place], [place] [address] Basophils/100 WBC (Bld) 0.8 % Normal <=2.0 [facility] Comment on above: Performed By: #### 2 4336-0 #### [facility] [address] [place], [place] [address] [employer] [place] [id number] Performed for [facility] [address] [place], [place] [address] Eosinophils (Bld) [#/Vol] 0.11 10*3/uL Normal <=0.70 [facility] Comment on above: Performed By: #### 2 4336-0 #### [facility] [address] [place] [address] [employer] [place] [id number] Performed for [facility] [address] [place], [place] [address] Eosinophils/100 WBC (Bld) 1.1 % Normal <=10.0 [facility] Comment on above: Performed By: #### 2 4336-0 #### [facility] [address] [place] [address] [employer] [place] [id number] Performed for [facility] [address] [place], [place] [address] Erythrocyte distribution width (RBC) [Entitic vol] 51.8 fL High 36.4-46.3 [facility] Comment on above: Performed By: #### 2 4336-0 #### [facility] [address] [place] [address] [employer] [place] [id number] Performed for [facility] [address] [place], [place] [address] Hematocrit (Bld) [Volume fraction] 36.4 % Low 37.0-47.0 [facility] Comment on above: Performed By: #### 2 4336-0 #### [facility] [address] [place], [place] [address] [employer] [place] [id number] Performed for [facility] [address] [place], [place] [address] Hemoglobin (Bld) [Mass/Vol] 11.2 g/dL Low 12.0-16.0 [facility] Comment on above: Performed By: #### 2 4336-0 #### [facility] [address] [place] [address] [employer] [place] [id number] Performed for [facility] [address] [place], [place] [address] Immature granulocytes (Bld) [#/Vol] 0.06 10*3/uL Normal <=0.10 [facility] Comment on above: Performed By: #### 2 4336-0 #### [facility] [address] [place] [address] [employer] [facility] [place] [id number] Performed for [place] [address] [place] [address] Immature granulocytes/100 WBC (Bld) 0.60 % Normal <=1.50 [facility] Comment on above: Performed By: #### 2 4336-0 #### [place] [address] [place] [address] [employer] [place] [id number] Performed for [place] [address] [place] [address] Lymphocytes (Bld) [#/Vol] 1.52 10*3/uL Normal 1.20-3.40 [facility] Comment on above: Performed By: #### 2 4336-0 #### [place] [address] [place] [address] [employer] [facility] [place] [id number] Performed for [place] [address] [place], [place] [address] Lymphocytes/100 WBC (Bld) 15.3 % Low 20.0-40.0 [facility] Comment on above: Performed By: #### 2 4336-0 #### [facility] [address] [place] [address] [employer] [facility] [place] [id number] Performed for [place] [address] [place] [address] MCH (RBC) [Entitic mass] 22.4 pg Low 27.0-31.0 [facility] Comment on above: Performed By: #### 2 4336-0 #### [facility] [address] [place] [address] [employer] [facility] [place] [id number] Performed for [facility] [address] [place], [place] [address] MCHC (RBC) [Mass/Vol] 30.8 g/dL Low 32.0-36.0 [facility] Comment on above: Performed By: #### 2 4336-0 #### [place] [address] [place] [address] [employer] [place] [id number] Performed for [place] [address] [place] [address] MCV (RBC) [Entitic vol] 72.8 fL Low 80.0-100.0 [facility] Comment on above: Performed By: #### 2 4336-0 #### [place] [address] [place] [address] [employer] [facility] [place] [id number] Performed for [place] [address] [place] [address] Monocytes (Bld) [#/Vol] 0.73 10*3/uL High 0.10-0.60 [facility] Comment on above: Performed By: #### 2 4336-0 #### [place] [address] [place] [address] [employer] [facility] [place] [id number] Performed for [place] [address] [address] [place], [place] [address] Monocytes/100 WBC (Bld) 7.3 % Normal <=8.0 [facility] Comment on above: Performed By: #### 2 4336-0 #### [place] [address] [place] [address] [employer] [facility] [place] [id number] Performed for [place] [address] [place] [address] Neutrophils (Bld) [#/Vol] 7.46 10*3/uL High 1.40-6.50 [facility] Comment on above: Performed By: #### 2 4336-0 #### [facility] [address] [place] [address] [employer] [facility] [place] [id number] Performed for [facility] [address] [place], [place] [address] Neutrophils/100 WBC (Bld) 74.9 % High 50.0-70.0 [facility] Comment on above: Performed By: #### 2 4336-0 #### [facility] [address] [place] [address] [employer] [facility] [place] [id number] Performed for [facility] [address] [place], [place] [address] Nucleated RBC (Bld) [#/Vol] 0.00 10*3/uL Normal <=0.10 [facility] Comment on above: Performed By: #### 2 4336-0 #### [place] [address] [place] [address] [employer] [place] [id number] Performed for [facility] [address] [place], [place] [address] Platelet mean volume (Bld) [Entitic vol] 8.6 fL Low 9.0-13.0 [facility] Comment on above: Performed By: #### 2 4336-0 #### [facility] [address] [place] [address] [employer] [place] [id number] Performed for [facility] [address] [place], [place] [address] Platelets (Bld) [#/Vol] 404 10*3/uL High 130-400 [facility] Comment on above: Performed By: #### 2 4336-0 #### [facility] [address] [place] [address] [employer] - [place] SKINNER [id number] Performed for [place] [address] [place], [place] [address] RBC (Bld) [#/Vol] 5.00 10*6/uL Normal 4.00-6.30 [facility] Comment on above: Performed By: #### 2 4336-0 #### [facility] [address] [place] [address] [employer] - [place] SKINNER [id number] Performed for [facility] [address] [place] [address] WBC (Bld) [#/Vol] 9.96 10*3/uL Normal 4.80-10.80 [facility] Comment on above: Performed By: #### 2 4336-0 #### [facility] [address] [place] [address] [employer] - [place] SKINNER [id number] Performed for [facility] [address] [place] [address] CORTISOLon 09-24-2023 Cortisol [Mass/Vol] 8.1 ug/dL Normal [facility] Comment on above: Performed By: #### 2 143-6 #### [facility] [address] [place] [address] [employer] - [place] SKINNER [id number] Cortisol [Mass/Vol]on 2022 HCORT CORTISOL INTERPRETAT ION TIME REFERENCE RANGE 7:00-9:00 AM 4.30-22.40 ug/dL 3:00-5:00 PM 3.09-16.66 ug/dL Normal [facility] Comment on above: Performed By: #### 2 143-6 #### [facility] [address] [place] [address] [employer] - [place] HARTMANIA [id number] Hepatic function 2000 panelo n 09-24-2023 Albumin [Mass/Vol] 2.8 g/dL Low 3.4-5.0 [facility] Comment on above: Performed By: #### 2 4336-0 #### [facility] [address] [place] [address] [employer] - [place] HARTMANIA [id number] Performed for [facility] [address] [place] [address] Albumin/Globulin [Mass ratio] 0.6 {ratio} Low 1.0-2.2 [facility] Comment on above: Performed By: #### 2 4336-0 #### [facility] [address] [place], [place] [address] [employer] - [place] SKINNER [id number] Performed for [facility] [address] [place], [place] [address] ALP [Catalytic activity/Vol] 88 U/L Normal 50-136 [facility] Comment on above: Performed By: #### 2 4336-0 #### [facility] [address] [place], [place] [address] [employer] - [place] HARTMANIA [id number] Performed for [facility] [address] [place], [place] [address] ALT [Catalytic activity/Vol] 24 U/L Normal 14-59 [facility] Comment on above: Performed By: #### 2 4336-0 #### [facility] [address] [place], [place] [address] [employer] - [place] HARTMANIA [id number] Performed for [facility] [address] [place], [place] [address] AST [Catalytic activity/Vol] 21 U/L Normal 15-37 [facility] Comment on above: Performed By: #### 2 4336-0 #### [facility] [address] [place], [place] [address] [employer] - [place] SKINNER [id number] Performed for [facility] [address] [place], [place] [address] Bilirubin [Mass/Vol] 0.4 mg/dL Normal 0.2-1.0 [facility] Comment on above: Performed By: #### 2 4336-0 #### [facility] [address] [place], [place] [address] [employer] - [place] SKINNER [id number] Performed for [facility] [address] [place], [place] [address] Bilirubin.conjugated [Mass/Vol] 0.1 mg/dL Normal <=0.2 [facility] Comment on above: Performed By: #### 2 4336-0 #### [facility] [address] [place] [address] [employer] - [place] SKINNER [id number] Performed for [facility] [address] [place], [place] [address] Globulin (S) [Mass/Vol] 4.4 g/dL High 2.4-3.8 [facility] Comment on above: Performed By: #### 2 4336-0 #### [facility] [address] [place] [address] [employer] - [place] SKINNER [id number] Performed for [facility] [address] [place] [address] Protein [Mass/Vol] 7.2 g/dL Normal 6.4-8.2 [facility] Comment on above: Performed By: #### 2 4336-0 #### [facility] [address] [place] [address] [employer] - [place] SKINNER [id number] Performed for [facility] [address] [place], [place] [address] LACTATEon 09-24-2023 Lactate [Moles/Vol] 1.5 mmol/L Normal 0.4-2.0 [facility] Comment on above: Performed By: #### 2 524-7 #### [place] [address] [place] [address] [employer] - [place] SKINNER [id number] PT Coag (PPP) [Time]on 09-24 HPTINR INR REFERENCE RANGE INTERPRETATION Patients on Coumadin 2.0 - 3.0 Patients with mechanical heart valves 2.5 - 3.5 Normal [facility] Comment on above: Performed By: #### 5 902-2 #### [facility] [address] [place] [address] [employer] - [place] SKINNER [id number] INR Coag (PPP) [Relative time] 2.8 {INR} High 0.8-1.1 [facility] Comment on above: Performed By: #### 5 902-2 #### [place] [address] [place] [address] [employer] - [place] SKINNER [id number] PT with INRon 09-24-2023 PT Coag (PPP) [Time] 27.3 s High 9.3-11.5 [facility] Comment on above: Performed By: #### 5 902-2 #### [facility] [address] [place] [address] [employer] - [place] SKINNER [id number] URINALYSIS with reflex to CU LTUREon 09-24-2023 Bacteria LM Ql (Urine sed) Negative Normal TRACE [facility] Comment on above: Performed By: #### 2 4336-0 #### [facility] [address] [place] [address] [employer] - [place] SKINNER [id number] Performed for [facility] [address] [place], [place] [address] Bilirubin (U) [Mass/Vol] Negative Normal NEGATIVE [facility] Comment on above: Performed By: #### 2 4336-0 #### [facility] [address] [place] [address] [employer] - [place] SKINNER [id number] Performed for [facility] [address] [place], [place] [address] Clarity (U) CLOUDY Abnormal CLEAR [facility] Comment on above: Performed By: #### 2 4336-0 #### [facility] [address] [place] [address] [employer] - [place] SKINNER [id number] Performed for [facility] [address] [place], [place] [address] Color (U) YELLOW Normal YELLOW [facility] Comment on above: Performed By: #### 2 4336-0 #### [facility] [address] [place] [address] [place] [employer] - [place] SKINNER [id number] Performed for [facility] [address] [place], [place] [address] Glucose Test strip (U) [Mass/Vol] Negative Normal NEGATIVE [facility] Comment on above: Performed By: #### 2 4336-0 #### [facility] [address] [place], [place] [address] [employer] - [place] SKINNER [id number] Performed for [facility] [address] [place], [place] [address] HMICRO MICROSCOPIC Normal [facility] Comment on above: Performed By: #### 2 4336-0 #### [facility] [address] [place] [address] [employer] - [place] SKINNER [id number] Performed for [facility] [address] [place], [place] [address] Hyaline casts (Urine sed) [#/Area] 0-8 Normal 0-8 [facility] Comment on above: Performed By: #### 2 4336-0 #### [facility] [address] [place] [address] [employer] - [place] SKINNER [id number] Performed for [facility] [address] [place], [place] [address] Ketones (U) [Mass/Vol] 1+ Abnormal NEGATIVE [facility] Comment on above: Performed By: #### 2 4336-0 #### [facility] [address] [place] [address] [employer] - [place] SKINNER [id number] Performed for [facility] [address] [place], [place] [address] Leukocyte esterase Qn (U) Negative Normal TRACE [facility] Comment on above: Performed By: #### 2 4336-0 #### [facility] [address] [place], [place] [address] [employer] - [place] SKINNER [id number] Performed for [facility] [address] [place], [place] [address] Nitrite Ql (U) Negative Normal NEGATIVE [facility] Comment on above: Performed By: #### 2 4336-0 #### [facility] [address] [place] [address] [employer] - [place] SKINNER [id number] Performed for [facility] [address] [place], [place] [address] pH (U) 8.0 [pH] High 5.5-7.5 [facility] Comment on above: Performed By: #### 2 4336-0 #### [facility] [address] [place], [place] [address] [employer] - [place] SKINNER [id number] Performed for [facility] [address] [place], [place] [address] Protein (U) [Mass/Vol] Negative Normal NEGATIVE [facility] Comment on above: Performed By: #### 2 4336-0 #### [facility] [address] [place], [place] [address] [employer] - [place] SKINNER [id number] Performed for [facility] [address] [place], [place] [address] RBC (U) [#/Vol] TRACE Abnormal NEGATIVE [facility] Comment on above: Performed By: #### 2 4336-0 #### [facility] [address] [place] [address] [employer] - [place] SKINNER [id number] Performed for [facility] [address] [place], [place] [address] RBC LM.HPF (Urine sed) [#/Area] 4-10 Abnormal 0-4 [facility] Comment on above: Performed By: #### 2 4336-0 #### [facility] [address] [place], [place] [address] [employer] - [place] SKINNER [id number] Performed for [facility] [address] [place], [place] [address] Specific gravity (U) [Rel density] 1.013 Normal 1.010-1.03 5 [facility] Comment on above: Performed By: #### 2 4336-0 #### [facility] [address] [place], [place] [address] [employer] - [place] SKINNER [id number] Performed for [facility] [address] [place], [place] [address] SQUAMOUS EPITHELIALS 0-5 Normal 0-5 [facility] Comment on above: Performed By: #### 2 4336-0 #### [facility] [address] [place] [address] [employer] - [place] SKINNER [id number] Performed for [facility] [address] [place], [place] [address] Urobilinogen Qn (U) 0.2 {Luis Fernando'U}/dL Normal <=1.0 [facility] Comment on above: Performed By: #### 2 4336-0 #### [facility] [address] [place] [address] [employer] - [place] SKINNER [id number] Performed for [facility] [address] [place] [address] WBC LM.HPF (Urine sed) [#/Area] 0-5 Normal 0-5 [facility] Comment on above: Performed By: #### 2 4336-0 #### [facility] [address] [place] [address] [employer] - [place] SKINNER [id number] Performed for [facility] [address] [place], [place] [address] URINE DRUG SCREEN with CONFI RMATIONon 09-24-2023 Amphetamines Ql (U) Not detected Normal CUTOFF = 500 [facility] Comment on above: Performed By: #### 2 4336-0 #### [facility] [address] [place] [address] [employer] - [place] SKINNER [id number] Performed for [facility] [address] [place], [place] [address] Barbiturates Ql (U) Not detected Normal CUTOFF = 200 [facility] Comment on above: Performed By: #### 2 4336-0 #### [facility] [address] [place] [address] [employer] - [place] SKINNER [id number] Performed for [facility] [address] [place], [place] [address] Benzodiazepines Ql (U) Not detected Normal CUTOF F = 150 [facility] Comment on above: Performed By: #### 2 4336-0 #### [facility] [address] [place] [address] [employer] - [place] SKINNER [id number] Performed for [facility] [address] [place], [place] [address] Cocaine Ql (U) Not detected Normal CUTOFF = 150 [facility] Comment on above: Performed By: #### 2 4336-0 #### [facility] [address] [place] [address] [employer] - [place] SKINNER [id number] Performed for [facility] [address] [place], [place] [address] HDRUG Drugs of abuse juli garnica provides only a preliminary analytical test result. A more specific alternate chemical method must be used in order to obtain a confimed analytical result. Clinical consideration and professional judgment should be applied to any drug of abuse test result, particularly when preliminary positive results are obtained. Normal [facility] Comment on above: Performed By: #### 2 4336-0 #### [facility] [address] [place] [address] [employer] - [place] SKINNER [id number] Performed for [facility] [address] [place], [place] [address] Opiates Ql (U) Not detected Normal CUTOFF = 300 [facility] Comment on above: Performed By: #### 2 4336-0 #### [facility] [address] [place] [address] [employer] - [place] SKINNER [id number] Performed for [facility] [address] [place], [place] [address] oxyCODONE Ql (U) Detected Abnormal CUTOFF = 100 [facility] Comment on above: Performed By: #### 2 4336-0 #### [facility] [address] [place] [address] [employer] - [place] SKINNER [id number] Performed for [facility] [address] [place], [place] [address] Phencyclidine Ql (U) Not detected Normal CUTOFF = 25 [facility] Comment on above: Performed By: #### 2 4336-0 #### [facility] [address] [place] [address] [employer] - [place] SKINNER [id number] Performed for [facility] [address] [place] [address] Tetrahydrocannabinol Ql (U) Not detected Normal CUTOFF = 50 [facility] Comment on above: Performed By: #### 2 4336-0 #### [facility] [address] [place] [address] [employer] - [place] SKINNER [id number] Performed for [facility] [address] [place], [place] [address] ACETAMINOPHENon 09-23-2023 Acetaminophen [Mass/Vol] ug/mL Low 10.0-30.0 [facility] Comment on above: Performed By: #### 1 9123-9, LIPASE, 71759-2 #### [facility] [address] [place] [address] [place] [employer] - [place] SKINNER [id number] ALCOHOLon 09-23-2023 Ethanol [Mass/Vol] mg/dL Normal <=3 [facility] Comment on above: Performed By: #### 1 9123-9, LIPASE, 14019-8 #### [facility] [address] [place] [address] [place] [employer] - [place] SKINNER [id number] AMMONIAon 09-23-2023 Ammonia (P) [Moles/Vol] 30 umol/L Normal 11-32 [facility] Comment on above: Performed By: #### 1 9123-9, LIPASE, 33066-6 #### [facility] [address] [place] [address] [place] [employer] - [place] SKINNER [id number] Acetaminophen [Mass/Vol]on 11-23-2022 HACET ACETAMINOPHEN INTERPRETATION Significant liver damage is considered likely if drug levels are greater than 300 ug/mL at 4 hours after ingestion or levels of 50 ug/mL after 12 hours. Normal [facility] Comment on above: Performed By: #### 1 9123-9, LIPASE, 47882-9 #### [facility] [address] [place] [address] [employer] - [place] SKINNER [id number] CBC W Auto Differential pane l (Bld)on 09-23-2023 Basophils (Bld) [#/Vol] 0.06 10*3/uL Normal <=0.70 [facility] Comment on above: Performed By: #### 5 7021-8 #### [facility] [address] [place] [address] [employer] - [place] HARTMANIA [id number] Basophils/100 WBC (Bld) 0.4 % Normal <=2.0 [facility] Comment on above: Performed By: #### 5 7021-8 #### [address] Director - [place] SKINNER [id number] Eosinophils (Bld) [#/Vol] 0.03 10*3/uL Normal <=0.70 [facility] Comment on above: Performed By: #### 5 7021-8 #### [place] [address] Director - [place] HARTMANIA [id number] Eosinophils/100 WBC (Bld) 0.2 % Normal <=10.0 [facility] Comment on above: Performed By: #### 5 7021-8 #### [address] [place] [address] [employer] - [place] SKINNER [id number] Erythrocyte distribution width (RBC) [Entitic vol] 52.5 fL High 36.4-46.3 [facility] Comment on above: Performed By: #### 5 7021-8 #### [facility] [address] [place] [address] [employer] - [place] HART[place]IA [id number] Hematocrit (Bld) [Volume fraction] 35.8 % Low 37.0-47.0 [facility] Comment on above: Performed By: #### 5 7021-8 #### [address] [facility] [facility] [place] [address] [employer] - [place] SKINNER [id number] Hemoglobin (Bld) [Mass/Vol] 10.7 g/dL Low 12.0-16.0 [facility] Comment on above: Performed By: #### 5 7021-8 #### [place] [address] [employer] - [place] Maldonado CLIA [id number] Immature granulocytes (Bld) [#/Vol] 0.06 10*3/uL Normal <=0.10 [facility] Comment on above: Performed By: #### 5 7021-8 #### [place] [address] [employer] - [place] Maldonado CLIA [id number] Immature granulocytes/100 WBC (Bld) 0.40 % Normal <=1.50 [facility] Comment on above: Performed By: #### 5 7021-8 #### [place] [address] [employer] - [place] Maldonado CLIA [id number] Lymphocytes (Bld) [#/Vol] 1.27 10*3/uL Normal 1.20-3.40 [facility] Comment on above: Performed By: #### 5 7021-8 #### [place] [address] [employer] - [place] Maldonado CLIA [id number] Lymphocytes/100 WBC (Bld) 8.9 % Low 20.0-40.0 [facility] Comment on above: Performed By: #### 5 7021-8 #### [place] [address] [employer] - [place] Maldonado CLIA [id number] MCH (RBC) [Entitic mass] 22.0 pg Low 27.0-31.0 [facility] Comment on above: Performed By: #### 5 7021-8 #### [place] [address] [employer] - [place] Maldonado CLIA [id number] MCHC (RBC) [Mass/Vol] 29.9 g/dL Low 32.0-36.0 [facility] Comment on above: Performed By: #### 5 7021-8 #### [facility] [address] [facility] [place] [address] [employer] - [place] HARTMANIA [id number] MCV (RBC) [Entitic vol] 73.5 fL Low 80.0-100.0 [facility] Comment on above: Performed By: #### 5 7021-8 #### [address] [place] [address] [employer] - [place] Maldonado CLIA [id number] Monocytes (Bld) [#/Vol] 0.53 10*3/uL Normal 0.10-0.60 [facility] Comment on above: Performed By: #### 5 7021-8 #### [address] [place] [address] [employer] - [place] Maldonado CLIA [id number] Monocytes/100 WBC (Bld) 3.7 % Normal <=8.0 [facility] Comment on above: Performed By: #### 5 7021-8 #### [address] [place] [address] [employer] - [place] Maldonado CLIA [id number] Neutrophils (Bld) [#/Vol] 12.32 10*3/uL High 1.40-6.50 [facility] Comment on above: Performed By: #### 5 7021-8 #### [address] [place] [address] [employer] - [place] Maldonado CLIA [id number] Neutrophils/100 WBC (Bld) 86.4 % High 50.0-70.0 [facility] Comment on above: Performed By: #### 5 7021-8 #### [address] [place] [address] [employer] - [place] Maldonado CLIA [id number] Nucleated RBC (Bld) [#/Vol] 0.00 10*3/uL Normal <=0.10 [facility] Comment on above: Performed By: #### 5 7021-8 #### [facility] [address] [place] [address] [employer] - [place] SKINNER [id number] Platelet mean volume (Bld) [Entitic vol] 8.7 fL Low 9.0-13.0 [facility] Comment on above: Performed By: #### 5 7021-8 #### [facility] [address] [place] [address] [employer] - a[place] SKINNER [id number] Platelets (Bld) [#/Vol] 436 10*3/uL High 130-400 [facility] Comment on above: Performed By: #### 5 7021-8 #### [place] [address] [place] [address] [employer] - [place] SKINNER [id number] RBC (Bld) [#/Vol] 4.87 10*6/uL Normal 4.00-6.30 [facility] Comment on above: Performed By: #### 5 7021-8 #### [place] [address] [place] [address] [employer] - [place] SKINNER [id number] WBC (Bld) [#/Vol] 14.27 10*3/uL High 4.80-10.80 [facility] Comment on above: Performed By: #### 5 7021-8 #### [place] [address] [place] [address] [employer] - [place] SKINNER [id number] [facility] [Catalytic activity/Vol] 108 U/L Normal 21-215 [facility] Comment on above: Performed By: #### 2 4336-0 #### [facility] [address] [place] [address] [employer] - [place] SKINNER [id number] Performed for [facility] [address] [place] [address] [address] HEAD WITHOUT ONLYon 09-23 CT HEAD WITHOUT ONLY CT HEAD WITHOUT ONL Y: 09/23/2023 12:04 PM EST HISTORY: Altered mental status TECHNIQUE: CT scan brain without IV contrast was obtained. COMPARISON: None. FINDINGS: There is a normal sulcal pattern and gyral configuration. No mass or mass effect or intracranial hemorrhage is seen. CSF spaces are normal in size and configuration. Cerebellum and brainstem appear grossly normal. Mastoid and ethmoid air cells are well-developed and pneumatized. The visualized paranasal sinuses appear normal. IMPRESSION: No evidence of intracranial hemorrhage or other acute finding. Normal [facility] Comprehensive metabolic 2000 panelon 09-23-2023 Albumin [Mass/Vol] 3.1 g/dL Low 3.4-5.0 [facility] Comment on above: Performed By: #### 1 9123-9, LIPASE, 14881-7 #### [facility] [address] [place] [address] [employer] - [place] HART[place]IA [id number] ALP [Catalytic activity/Vol] 98 U/L Normal 50-136 [facility] Comment on above: Performed By: #### 1 9123-9, LIPASE, 04948-0 #### [facility] [address] [place] [address] [employer] - [place] HART[place]IA [id number] ALT [Catalytic activity/Vol] 26 U/L Normal 14-59 [facility] Comment on above: Performed By: #### 1 9123-9, LIPASE, 23305-7 #### [facility] [address] [place] [address] [employer] - [place] HARTMANIA [id number] Anion gap [Moles/Vol] 8.0 mmol/L Normal <=15.0 [facility] Comment on above: Performed By: #### 1 9123-9, LIPASE, 11307-9 #### [facility] [address] [place] [address] [employer] - [place] HARTMANIA [id number] AST [Catalytic activity/Vol] 24 U/L Normal 15-37 [facility] Comment on above: Performed By: #### 1 9123-9, LIPASE, 70554-8 #### [facility] [address] [place] [address] [employer] - [place] HARTMANIA [id number] Bilirubin [Mass/Vol] 0.4 mg/dL Normal 0.2-1.0 [facility] Comment on above: Performed By: #### 1 23-9, LIPASE, 48567-1 #### [facility] [address] [place] [address] [employer] - [place] Maldonado CLIA [id number] Calcium [Mass/Vol] 8.5 mg/dL Normal 8.5-10.1 [facility] Comment on above: Performed By: #### 1 9122-9, LIPASE, 86862-3 #### [facility] [address] [place] [address] [employer] - [place] HATRMANIA [id number] Chloride [Moles/Vol] 99 mmol/L Normal 98-107 [facility] Comment on above: Performed By: #### 1 9122-9, LIPASE, 42856-2 #### [facility] [address] [place] [address] [employer] [place] Maldonado CLIA [id number] CO2 [Moles/Vol] 24 mmol/L Normal 21-32 [facility] Comment on above: Performed By: #### 1 23-9, LIPASE, 18346-6 #### [facility] [address] [place] [address] [employer] [place] HARTMANIA [id number] Creatinine [Mass/Vol] 0.74 mg/dL Normal 0.51-0.95 [facility] Comment on above: Performed By: #### 1 23-9, LIPASE, 60595-9 #### [facility] [address] [place] [address] [employer] [place] Maldonado CLIA [id number] GFR/1.73 sq M.predicted MDRD (S/P/Bld) [Vol rate/Area] mL/min/{1.73_m2} Normal >=59 [facility] Comment on above: Performed By: #### 1 9122-9, LIPASE, 20724-3 #### [facility] [address] [place] [address] [employer] [place] SKINNER [id number] Glucose [Mass/Vol] 108 mg/dL High 74-106 [facility] Comment on above: Performed By: #### 1 23-9, LIPASE, 58818-6 #### [facility] [address] [place] [address] [employer] [place] SKINNER [id number] HGFR GLOMERULAR FILTRATIO N RATE INTERPRETATION~The eGFR is calculated using the MDRD equation.~This equation has been validated in patients with chronic kidney disease;~however, it underestimates the GFR in healthy patients with GFR's over 60 mL/min.~The equation is not valid in children under the age of 18.~NOTE: Criteria for Chronic Kidney Disease:~ ~1. Kidney damage for at least three months, as defined~by structural or functional abnormalities of the kidney,~with or without decreased glomerular filtration rate, manifested by either:~* Pathological abnormalities or~* Markers of Kidney damage, including abnormalities in~the composition of the blood or urine or abnormalities in imaging tests.~ ~2. GFR <60 mL/min/1.73 m squared for at least three months, with or without kidney damage.~ Normal [facility] Comment on above: Performed By: #### 1 23-9, LIPASE, 39070-7 #### [facility] [address] [place] [address] [employer] [place] SKINNER [id number] Potassium [Moles/Vol] 4.5 mmol/L Normal 3.5-5.1 [facility] Comment on above: Performed By: #### 1 23-9, LIPASE, 82545-0 #### [facility] [address] [place] [address] [employer] [place] SKINNER [id number] Protein [Mass/Vol] 7.8 g/dL Normal 6.4-8.2 [facility] Comment on above: Performed By: #### 1 23-9, LIPASE, 51399-8 #### [facility] [address] [place] [address] [employer] [place] SKINNER [id number] Sodium [Moles/Vol] 131 mmol/L Low 136-145 [facility] Comment on above: Performed By: #### 1 9123-9, LIPASE, 65054-3 #### [facility] [address] [place] [address] [employer] [place] SKINNER [id number] Urea nitrogen [Mass/Vol] 12 mg/dL Normal - [facility] Comment on above: Performed By: #### 1 9123-9, LIPASE, 39601-9 #### [facility] [address] [place] [address] [employer] [place] SKINNER [id number] Ethanol [Mass/Vol]on 023 HALC ALCOHOL INTERPRETATI ON <3 mg/dL Negative 50-100 mg/dL Toxic >100 Depression of INFECTIOUS DISEASES PHYSICIAN ALCOHOL UNIT CONVERSION To convert to g/dL divide result by 1000. Normal [facility] Comment on above: Performed By: #### 1 9123-9, LIPASE, 67309-2 #### [facility] [address] [place] [address] [employer] [place] SKINNER [id number] FOLATEon 09-23-2023 Folate [Mass/Vol] ng/mL High 3.1-17.5 [facility] Comment on above: Result Comment: Spec imen slightly hemolyzed. Test results may be affected. Performed By: #### 2 4336-0 #### [facility] [address] [place] [address] [employer] [place] SKINNER [id number] Performed for [facility] [address] [place] [address] Gas panel (BldA)on 3 Base excess Calc (Bld) [Moles/Vol] 1 mmol/L Normal -2-2 [facility] Comment on above: Performed By: #### 2 4336-0 #### [facility] [address] [place] [address] [employer] [place] SKINNER [id number] Performed for [facility] [address] [place], [place] [address] Carboxyhemoglobin (BldA) [Mass fraction] 3.5 % Normal [facility] Comment on above: Performed By: #### 2 4336-0 #### [facility] [address] [place], [place] [address] [employer] [place] SKINNER [id number] Performed for [facility] [address] [place], [place] [address] Chloride [Moles/Vol] 98 mmol/L Normal 98-107 [facility] Comment on above: Performed By: #### 2 4336-0 #### [facility] [address] [place], [place] [address] [employer] [place] SKINNER [id number] Performed for [facility] [address] [place], [place] [address] CO2 (Bld) [Partial pressure] 36.8 mm/Hg Normal 35.0-45.0 [facility] Comment on above: Performed By: #### 2 4336-0 #### [facility] [address] [place], [place] [address] [employer] [place] SKINNER [id number] Performed for [facility] [address] [place], [place] [address] DEOXYHEMOGLOBIN 6 % Normal [facility] Comment on above: Performed By: #### 2 4336-0 #### [facility] [address] [place], [place] [address] [employer] [place] SKINNER [id number] Performed for [facility] [address] [place], [place] [address] FLOW Normal [facility] Comment on above: Performed By: #### 2 4336-0 #### [facility] [address] [place], [place] [address] [employer] [place] SKINNER [id number] Performed for [facility] [address] [place], [place] [address] Glucose [Mass/Vol] 95 mg/dL Normal 65-110 [facility] Comment on above: Performed By: #### 2 4336-0 #### [facility] [address] [place] [address] [employer] [place] SKINNER [id number] Performed for [facility] [address] [place] [address] HCARBOXY NON-SMOKERS 0.0-1.5% SMOKERS 1.5-5.0% Normal [facility] Comment on above: Performed By: #### 2 4336-0 #### [facility] [address] [place] [address] [employer] [place] SKINNER [id number] Performed for [facility] [address] [place] [address] HCO3 (Bld) [Moles/Vol] 24.6 mmol/L Normal 22.0-26.0 [facility] Comment on above: Performed By: #### 2 4336-0 #### [facility] [address] [place] [address] [employer] [place] SKINNER [id number] Performed for [facility] [address] [place] [address] HEADING CO-OXIMETRY CO-OXIMETRY Normal [facility] Comment on above: Performed By: #### 2 4336-0 #### [facility] [address] [place] [address] [employer] [place] SKINNER [id number] Performed for [facility] [address] [place] [address] HEADING CO-OXIMETRY CHEMISTRY Normal [facility] Comment on above: Performed By: #### 2 4336-0 #### [facility] [address] [place] [address] [employer] [place] SKINNER [id number] Performed for [facility] [address] [place] [address] Hemoglobin (Bld) [Mass/Vol] 11.1 g/dL Low 12.0-16.0 [facility] Comment on above: Performed By: #### 2 4336-0 #### [facility] [address] [place] [address] [employer] [place] SKINNER [id number] Performed for [facility] [address] [place], [place] [address] IONIZED CA 1.1 mmol/L Normal 1.1-1.4 [facility] Comment on above: Performed By: #### 2 4336-0 #### [facility] [address] [place] [address] [employer] [place] SKINNER [id number] Performed for [facility] [address] [place], [place] [address] Lactate [Moles/Vol] 2.8 mmol/L High 0.4-2.0 [facility] Comment on above: Performed By: #### 2 4336-0 #### [facility] [address] [place] [address] [employer] [place] SKINNER [id number] Performed for [facility] [address] [place], [place] [address] M.A.T. Positive Normal POSITIVE [facility] Comment on above: Performed By: #### 2 4336-0 #### [facility] [address] [place] [address] [employer] [place] SKINNER [id number] Performed for [facility] [address] [place], [place] [address] Methemoglobin (BldA) [Mass fraction] 0.3 % Normal 0.0-1.5 [facility] Comment on above: Performed By: #### 2 4336-0 #### [facility] [address] [place] [address] [employer] [place] SKINNER [id number] Performed for [facility] [address] [place], [place] [address] MODE Normal MODE [facility] Comment on above: Performed By: #### 2 4336-0 #### [facility] [address] [place] [address] [employer] [place] SKINNER [id number] Performed for [facility] [address] [place], [place] [address] Oxygen (Bld) [Partial pressure] 65 mm/Hg Low 80-100 [facility] Comment on above: Performed By: #### 2 4336-0 #### [facility] [address] [place], [place] [address] [employer] [place] SKINNER [id number] Performed for [facility] [address] [place], [place] [address] Oxygen capacity (BldA) [Volume fraction] 21 % Normal [facility] Comment on above: Performed By: #### 2 4336-0 #### [facility] [address] [place], [place] [address] [employer] [place] SKINNER [id number] Performed for [facility] [address] [place], [place] [address] Oxyhemoglobin (BldA) [Mass fraction] 91 % Low 92-100 [facility] Comment on above: Performed By: #### 2 4336-0 #### [facility] [address] [place] [address] [employer] [place] SKINNER [id number] Performed for [facility] [address] [place], [place] [address] PEEP Normal [facility] Comment on above: Performed By: #### 2 4336-0 #### [facility] [address] [place], [place] [address] [employer] [place] SKINNER [id number] Performed for [facility] [address] [place], [place] [address] pH (Bld) 7.443 [pH] Normal 7.350-7.45 0 [facility] Comment on above: Performed By: #### 2 4336-0 #### [facility] [address] [place] [address] [employer] [place] SKINNER [id number] Performed for [facility] [address] [place], [place] [address] Potassium [Moles/Vol] 4.1 mmol/L Normal 3.2-5.1 [facility] Comment on above: Performed By: #### 2 4336-0 #### [facility] [address] [place], [place] [address] [employer] [place] SKINNER [id number] Performed for [facility] [address] [place], [place] [address] RATE 14 Normal [facility] Comment on above: Performed By: #### 2 4336-0 #### [facility] [address] [place], [place] [address] [employer] [place] SKINNER [id number] Performed for [facility] [address] [place], [place] [address] TIDAL VOLUME Normal [facility] Comment on above: Performed By: #### 2 4336-0 #### [facility] [address] [place], [place] [address] [employer] [place] SKINNER [id number] Performed for [facility] [address] [place], [place] [address] Tumor site Nom (Spec) R RADIAL Normal SITE [facility] Comment on above: Performed By: #### 2 4336-0 #### [facility] [address] [place], [place] [address] [employer] [place] SKINNER [id number] Performed for [facility] [address] [place], [place] [address] ARTERIAL BLOOD GAS Normal 131-143 [facility] Comment on above: Performed By: #### 2 4336-0 #### [facility] [address] [place], [place] [address] [employer] [place] SKINNER [id number] Performed for [facility] [address] [place], [place] [address] LACTATEon 09-23-2023 Lactate [Moles/Vol] 2.5 mmol/L High 0.4-2.0 [facility] Comment on above: Performed By: #### 2 524-7 #### [facility] [address] [place], [place] [address] [employer] [place] SKINNER [id number] Lactate [Moles/Vol] 3.1 mmol/L High 0.4-2.0 [facility] Comment on above: Performed By: #### 2 524-7 #### [facility] [address] [place] [address] [employer] - [place] SKINNER [id number] LIPASEon 09-23-2023 LIPASES 37 U/L Normal 13 [facility] Comment on above: Performed By: #### 1 9123-9, LIPASE, 70710-7 #### [facility] [address] [place] [address] [employer] [place] SKINNER [id number] MAGNESIUMon 09-23-2023 Magnesium [Mass/Vol] 1.9 mg/dL Normal 1.6-2.6 [facility] Comment on above: Result Comment: Spec imen moderately hemolyzed. Test results may be affected. Performed By: #### 1 9123-9, LIPASE, 84456-4 #### [facility] [address] [place] [address] [employer] - [place] SKINNER [id number] PT and aPTT panel Coag (PPP) on 09-23-2023 aPTT Coag (PPP) [Time] 38.1 s High 23.5-31.3 [facility] Comment on above: Performed By: #### 3 4529-8 #### [facility] [address] [place] [address] [employer] - [place] SKINNER [id number] HPTINR INR REFERENCE RANGE INTERPRETATION Patients on Coumadin 2.0 - 3.0 Patients with mechanical heart valves 2.5 - 3.5 Normal [facility] Comment on above: Performed By: #### 3 4529-8 #### [facility] [address] [place] [address] [employer] - [place] SKINNER [id number] INR Coag (PPP) [Relative time] 3.2 {INR} High 0.8-1.1 [facility] Comment on above: Performed By: #### 3 4529-8 #### [facility] [address] [place] [address] [employer] - [place] SKINNER [id number] PT Coag (PPP) [Time] 30.4 s High 9.3-11.5 [facility] Comment on above: Performed By: #### 3 4529-8 #### [facility] [address] [place] [address] [employer] - [place] HARTMANIA [id number] SALICYLATEon 09-23-2023 Salicylates [Mass/Vol] 5.6 mg/dL Normal 2.8-20.0 [facility] Comment on above: Performed By: #### 2 524-7 #### [facility] [address] [place] [address] [employer] [place] SKINNER [id number] TROPONIN HIGH SENSITIVITYon 09-23-2023 TNIH 6.60 pg/mL Normal <=59.00 [facility] Comment on above: Result Comment: <59 pg/mL is considered a negative result. Performed By: #### T ROP2 #### [place] [address] [place] [address] [employer] [facility] Hospital[facility] CLIA [id number] TNIH 7.60 pg/mL Normal <=59.00 [facility] Comment on above: Result Comment: <59 pg/mL is considered a negative result. Performed By: #### 1 9123-9, LIPASE, 00213-4 #### [place] [address] [place] [address] [employer] - [place] HARTMANIA [id number] TSH DL <= 0.05 mIU/L Qnon TSH Qn 0.948 uIU/mL Normal 0.358-3.74 0 [facility] Comment on above: Performed By: #### 2 4336-0 #### [facility] [address] [place] [address] [facility] [employer] [facility] - [facility]ataTrinitas HospitalIA [id number] Performed for [facility] [address] [place] [address] VITAMIN B12on 09-23-2023 Cobalamin (Vitamin B12) [Mass/Vol] 446 pg/mL Normal 254-1320 [facility] Comment on above: Performed By: #### 2 4336-0 #### [facility] [address] [place], [place] [address] [employer] - [place] SKINNER [id number] Performed for [facility] [address] [place], [place] [address] C REACTIVE PROTEINon 022 CRP [Mass/Vol] 28.1 mg/L High 0 - 10.0 MG/L [facility] Interpretation and review of laboratory results Abnormal [facility] SEDIMENTATION RATE, AUTOMATE Don 12-22-2021 ESR (Bld) [Velocity] 130 mm/h High [facility] Interpretation and review of laboratory results Abnormal [facility] Ova and Parasite Exon 2019 Ova and Parasite Ex Specimen Desc: STOOL Sp. Request/Comment: OPKIT Culture Result NOPARA Report Status 06/11/2020 FINAL Normal [facility] CREFon 12-29-2018 CREF . MICRO - Microbiology PROCEDURE: Culture Reference ID [[id number]: [id number] *1] SOURCE: Body Fluid BODY SITE: COLLECTED DATE/TIME: 12/12/2018 11:25 EST RECEIVED DATE/TIME: 12/17/2018 17:16 EST START DATE/TIME: 12/17/2018 17:20 EST FREE TEXT SOURCE: Pasteurella multocida R knee fluid FINAL REPORTS Final Report [] Verified Date/Time/Personnel: 12/29/2018 11:40 EST Pasteurella multocida Azithromycin: 0.5: S Levofloxacin: <=0.06: S Penicillin: 0.12: S Trimethoprim/Sulfamethoxa zole: <=0.12/2.4: S Ampicillin: 0.25: S Tetracycline: <=1: S Performed by [employer], [address] [place] [address], [place] [address] [email or web address], Duong Gonzalez MD, Lab.Director PRELIMINARY REPORTS Preliminary Report [] Verified Date/Time/Personnel: 12/19/2018 08:10 EST Pasteurella multocida MAYA to follow Preliminary Report [] Verified Date/Time/Personnel: 12/18/2018 12:56 EST Culture results pending. Order Comments O1: Culture Reference ID send to [facility] on Pasturella multocida. Performing Locations *1: This test was performed at: [facility], [address] [place] [address], [address] , [facility] ([place]) Comment on above: Performed By: #### C REF #### [place] [address] B12 & FOLATEon 12-17-2018 Cobalamin (Vitamin B12) mass conc 838 pg/mL 180 - 914 PG/ML [facility] Folate mass conc 20.1 ng/mL >5.9 NG/ML [facility] CBC, EDIF, PLATELETon 2018 ABSOLUTE BASOPHIL COUNT 0.1 X10 [facility] Basophils/100 WBC (Bld) 0.9 % 0 - 2 % [facility] Differential cell count method Nom (Bld) AUTO DIFF % [facility] Eosinophils #/vol (Bld) 0.20 10*3/uL X10 [facility] Eosinophils/100 WBC (Bld) 3.2 % 0 - 11 % [facility] Erythrocyte distribution width Ratio (RBC) 18.3 % High 11.5 - 14.5 % [facility] Hematocrit Volume Fraction (Bld) 29.0 % Low 36 - 48 % [facility] Hemoglobin mass conc (Bld) 9.7 g/dL Low [facility] Lymphocytes #/vol (Bld) 1.50 10*3/uL X10 [facility] Lymphocytes/100 WBC (Bld) 20.2 % 20 - 55 % [facility] MCH Entitic mass (RBC) 28.6 pg 26 - 35 PG [facility] MCHC mass conc (RBC) 33.6 g/dL [facility] MCV Entitic volume (RBC) 85.1 fL [facility] Monocytes #/vol (Bld) 0.6 10*3/uL X10 [facility] Monocytes/100 WBC (Bld) 8.1 % 0 - 10 % [facility] Neutrophils #/vol (Bld) 4.9 10*3/uL [facility] Neutrophils/100 WBC (Bld) 67.6 % 37 - 75 % [facility] Platelet mean volume Entitic volume (Bld) 7.9 fL [facility] Platelets #/vol (Bld) 528 10*3/uL High [facility] RBC #/vol (Bld) 3.40 10*6/uL Low [facility]3] [facility] WBC #/vol (Bld) 7.3 10*3/uL [facility] IRON/IRON BINDING/TRANSFERRI Non 12-17-2018 Iron binding capacity mass conc 189 Low [facility] Iron mass conc 21 ug/dL Low [facility] Iron saturation mass fraction 11 % [facility] Otheron 12-17-2018 Interpretation and review of laboratory results Abnormal [employer] PROTIME-INRon 12-17-2018 INR Coag RelTime (PPP) 2.08 {INR} High [facility] Comment on above: 2.0-3.0 THERAPEUTIC RANGE 2.5-3.5 PROSTHETIC VALVE RANGE Prothrombin time (PT) Coag time (PPP) 22.9 s High [employer] RENAL FUNCTION PANELon 12-17 Albumin mass conc 2.1 G/dl Low 3.5 - 5 G/dl [facility] Calcium mass conc 7.8 mg/dL Low [facility]3] [facility] Chloride molar conc 111 mmol/L High [facility] CO2 molar conc 27 mmol/L [facility] Creatinine mass conc 0.7 mg/dL [facility] GFR/1.73 sq M predicted among blacks MDRD vol rate/area (S/P/Bld) mL/min/{1.73_m2} ml/min/1.7 3sq.m [facility] [employer] GFR/1.73 sq M predicted among non-blacks MDRD vol rate/area (S/P/Bld) Average GFR for 60-69 years old = 85. [employer] Comment on above: Chronic Kidney disea se, GFR = <60. Kidney failure, GFR = <15. The GFR estimate is not adjusted for extreme body surface area or acute process, nor has it been validated for women or ethnic groups other than and . GFR/1.73 sq M predicted among non-blacks MDRD vol rate/area (S/P/Bld) mL/min/{1.73_m2} ml/min/1.7 3sq.m [employer] Glucose fasting mass conc 82 mg/dL [employer] Comment on above: NORMAL <100 mg/dL PREDIABETES 101-126 mg/dL DIABETES 126 mg/dL or higher Phosphate mass conc 4.2 mg/dL [employer] Potassium molar conc 3.6 mmol/L [facility] Sodium molar conc 140 mmol/L [facility]3] [facility] Urea nitrogen mass conc 12 mg/dL [facility] SURGICAL PATHOLOGY REQUESTon 12-17-2018 Pathology report final diagnosis Narrative Surgical Final Report Patient Name: AMNA SEQUEIRA Med. Rec. #: [id number] Physician: GALINDO ZEPEDA Copy To: DARREN SMITH Specimen(s) Received Fluid for crystals Other Related Clinical Data Not provided Clinical / Pre-Operative Diagnosis Not provided Post-Operative Diagnosis Not provided Surgical Procedure Synovial fluid aspiration Diagnosis: Synovial Fluid, Crystal Analysis, aspiration: -Negative for Crystals Electronically Signed [facility]/12/17/2018 Libra Caal MD Gross Description: The specimen is received in heparin, and labeled fluid for crystals, Amna Sequeira, and date of 1955. The specimen consists of 2 ml of red, opaque fluid. A slide is created for microscopic examination. Billing Fee Code(s) A: 69614 [employer] XR CHEST PORTABLE FOR LINE P LACEMENTon 12-17-2018 XR CHEST PORTABLE FO R LINE PLACEMENT 12/17/2018 5:33 PM EST Indication: PICC line placement Technique: Portable AP radiograph of the chest was obtained. Comparison: January 15, 2017 Findings: The lungs are adequately inflated. No acute rib fractures, pneumothorax or mediastinal shift. No consolidation, edema, or effusion. Heart is normal in size and contour. Right PICC line noted with tip projecting at the atrial caval junction. [employer] Impression: No acute findings. Right PICC line positioning with tip projecting at the atrial caval junction. [employer] User, Interfaces - 12/17/2018 6:37 PM EST XR CHEST PORTABLE FOR LINE PLACEMENT 12/17/2018 5:33 PM EST Indication: PICC line placement Technique: Portable AP radiograph of the chest was obtained. Comparison: January 15, 2017 Findings: The lungs are adequately inflated. No acute rib fractures, pneumothorax or mediastinal shift. No consolidation, edema, or effusion. Heart is normal in size and contour. Right PICC line noted with tip projecting at the atrial caval junction. IMPRESSION Impression: No acute findings. Right PICC line positioning with tip projecting at the atrial caval junction. [facility] CBC, EDIF, PLATELETon 2018 ABSOLUTE BASOPHIL COUNT 0.1 X10 [facility] Basophils/100 WBC (Bld) 1.0 % 0 - 2 % [facility] Differential cell count method Nom (Bld) AUTO DIFF % [facility] Eosinophils #/vol (Bld) 0.20 10*3/uL X10 [facility] Eosinophils/100 WBC (Bld) 1.9 % 0 - 11 % [facility] Erythrocyte distribution width Ratio (RBC) 18.6 % High 11.5 - 14.5 % [facility] Hematocrit Volume Fraction (Bld) 28.0 % Low 36 - 48 % [facility] Hemoglobin mass conc (Bld) 9.4 g/dL Low [facility] Lymphocytes #/vol (Bld) 1.60 10*3/uL X10 [facility] Lymphocytes/100 WBC (Bld) 16.4 % Low 20 - 55 % [facility] MCH Entitic mass (RBC) 29.0 pg 26 - 35 PG [facility] MCHC mass conc (RBC) 33.5 g/dL [facility] MCV Entitic volume (RBC) 86.4 fL [facility] Monocytes #/vol (Bld) 0.6 10*3/uL X10 [facility] Monocytes/100 WBC (Bld) 6.4 % 0 - 10 % [facility] Neutrophils #/vol (Bld) 7.2 10*3/uL High [facility] Neutrophils/100 WBC (Bld) 74.3 % 37 - 75 % [facility] Platelet mean volume Entitic volume (Bld) 8.5 fL [facility] Platelets #/vol (Bld) 431 10*3/uL High [facility] RBC #/vol (Bld) 3.23 10*6/uL Low [facility]3] [facility] WBC #/vol (Bld) 9.6 10*3/uL [facility] Otheron 12-16-2018 Interpretation and review of laboratory results Abnormal [facility] PROTIME-INRon 12-16-2018 INR Coag RelTime (PPP) 1.81 {INR} High [facility] Comment on above: 2.0-3.0 THERAPEUTIC RANGE 2.5-3.5 PROSTHETIC VALVE RANGE Prothrombin time (PT) Coag time (PPP) 20.6 s High [facility] RENAL FUNCTION PANELon 12-16 Albumin mass conc 1.9 G/dl Low 3.5 - 5 G/dl [facility] Calcium mass conc 7.7 mg/dL Low [facility]3] [facility] Chloride molar conc 108 mmol/L High [facility] CO2 molar conc 23 mmol/L [facility] Creatinine mass conc 0.7 mg/dL [facility] GFR/1.73 sq M predicted among blacks MDRD vol rate/area (S/P/Bld) mL/min/{1.73_m2} ml/min/1.7 3sq.m [facility] GFR/1.73 sq M predicted among non-blacks MDRD vol rate/area (S/P/Bld) mL/min/{1.73_m2} ml/min/1.7 3sq.m [facility] GFR/1.73 sq M predicted among non-blacks MDRD vol rate/area (S/P/Bld) Average GFR for 60-69 years old = 85. [facility] Comment on above: Chronic Kidney disea se, GFR = <60. Kidney failure, GFR = <15. The GFR estimate is not adjusted for extreme body surface area or acute process, nor has it been validated for women or ethnic groups other than and . Glucose fasting mass conc 87 mg/dL [facility] Comment on above: NORMAL <100 mg/dL PREDIABETES 101-126 mg/dL DIABETES 126 mg/dL or higher Phosphate mass conc 2.9 mg/dL [facility] Potassium molar conc 3.4 mmol/L Low [facility] Sodium molar conc 138 mmol/L [facility]3] [facility] Urea nitrogen mass conc 15 mg/dL [facility] CBC, EDIF, PLATELETon 2018 ABSOLUTE BASOPHIL COUNT 0.1 X10 [facility] Basophils/100 WBC (Bld) 1.0 % 0 - 2 % [facility] Differential cell count method Nom (Bld) AUTO DIFF % [facility] Eosinophils #/vol (Bld) 0.00 10*3/uL X10 [facility] Eosinophils/100 WBC (Bld) 0.0 % 0 - 11 % [facility] Erythrocyte distribution width Ratio (RBC) 18.3 % High 11.5 - 14.5 % [facility] Hematocrit Volume Fraction (Bld) 29.0 % Low 36 - 48 % [facility] Hemoglobin mass conc (Bld) 9.5 g/dL Low [facility] Lymphocytes #/vol (Bld) 0.60 10*3/uL X10 [facility] Lymphocytes/100 WBC (Bld) 4.8 % Low 20 - 55 % [facility] Entitic mass (RBC) 28.2 pg 26 - 35 PG [facility] MCHC mass conc (RBC) 32.7 g/dL [facility] MCV Entitic volume (RBC) 86.1 fL [facility] Monocytes #/vol (Bld) 0.5 10*3/uL X10 [facility] Monocytes/100 WBC (Bld) 3.8 % 0 - 10 % [facility] Neutrophils #/vol (Bld) 11.6 10*3/uL High [facility] Neutrophils/100 WBC (Bld) 90.4 % High 37 - 75 % [facility] Platelet mean volume Entitic volume (Bld) 7.9 fL [facility] Platelets #/vol (Bld) 404 10*3/uL High [facility] RBC #/vol (Bld) 3.37 10*6/uL Low [facility]3] [facility] WBC #/vol (Bld) 12.8 10*3/uL High [facility]3] [facility] Otheron 12-15-2018 Interpretation and review of laboratory results Abnormal [facility] [employer] PROTIME-INRon 12-15-2018 INR Coag RelTime (PPP) 1.18 {INR} High [facility] Comment on above: 2.0-3.0 THERAPEUTIC RANGE 2.5-3.5 PROSTHETIC VALVE RANGE Prothrombin time (PT) Coag time (PPP) 14.9 s High [facility] RENAL FUNCTION PANELon 12-15 Albumin mass conc 2.0 G/dl Low 3.5 - 5 G/dl [facility] Calcium mass conc 7.6 mg/dL Low [facility] Chloride molar conc 107 mmol/L [facility] CO2 molar conc 21 mmol/L Low [facility] Creatinine mass conc 0.7 mg/dL [facility] GFR/1.73 sq M predicted among blacks MDRD vol rate/area (S/P/Bld) mL/min/{1.73_m2} ml/min/1.7 3sq.m [facility] GFR/1.73 sq M predicted among non-blacks MDRD vol rate/area (S/P/Bld) Average GFR for 60-69 years old = 85. [employer] Comment on above: Chronic Kidney disea se, GFR = <60. Kidney failure, GFR = <15. The GFR estimate is not adjusted for extreme body surface area or acute process, nor has it been validated for women or ethnic groups other than and . GFR/1.73 sq M predicted among non-blacks MDRD vol rate/area (S/P/Bld) mL/min/{1.73_m2} ml/min/1.7 3sq.m [employer] Glucose fasting mass conc 110 mg/dL High [facility] [employer] Comment on above: NORMAL <100 mg/dL PREDIABETES 101-126 mg/dL DIABETES 126 mg/dL or higher Phosphate mass conc 4.2 mg/dL [facility] [employer] Potassium molar conc 4.4 mmol/L [facility] Sodium molar conc 136 mmol/L [facility]3] [facility] Urea nitrogen mass conc 11 mg/dL [facility] [employer] B-TYPE NATRIURETIC PEPTIDE ( BRAIN)on 12-14-2018 Natriuretic peptide B mass conc (Bld) 58 pg/mL 0 - 100 pg/mL [facility] [employer] CBC, EDIF, PLATELETon 2018 ABSOLUTE BASOPHIL COUNT 0.1 X10 [facility] [employer] Basophils/100 WBC (Bld) 0.9 % 0 - 2 % [facility] [employer] Differential cell count method Nom (Bld) AUTO DIFF % [facility] Eosinophils #/vol (Bld) 0.20 10*3/uL X10 [facility] [employer] Eosinophils/100 WBC (Bld) 2.2 % 0 - 11 % [facility] [employer] Erythrocyte distribution width Ratio (RBC) 17.7 % High 11.5 - 14.5 % [facility] [employer] Hematocrit Volume Fraction (Bld) 32.0 % Low 36 - 48 % [facility] [employer] Hemoglobin mass conc (Bld) 10.7 g/dL Low [facility] [employer] Lymphocytes #/vol (Bld) 1.20 10*3/uL X10 [facility] [employer] Lymphocytes/100 WBC (Bld) 14.3 % Low 20 - 55 % [facility] [employer] MCH Entitic mass (RBC) 28.2 pg 26 - 35 PG [facility] MCHC mass conc (RBC) 33.3 g/dL [facility] MCV Entitic volume (RBC) 84.7 fL [facility] Monocytes #/vol (Bld) 0.7 10*3/uL X10 [facility] Monocytes/100 WBC (Bld) 7.9 % 0 - 10 % [facility] Neutrophils #/vol (Bld) 6.2 10*3/uL [facility] Neutrophils/100 WBC (Bld) 74.7 % 37 - 75 % [facility] Platelet mean volume Entitic volume (Bld) 8.1 fL [facility] Platelets #/vol (Bld) 374 10*3/uL [facility] RBC #/vol (Bld) 3.78 10*6/uL Low [facility]3] [facility] WBC #/vol (Bld) 8.3 10*3/uL [facility] Otheron 12-14-2018 Interpretation and review of laboratory results Abnormal [facility] PROTIME-INRon 12-14-2018 INR Coag RelTime (PPP) 1.09 {INR} [facility] [employer] Comment on above: 2.0-3.0 THERAPEUTIC RANGE 2.5-3.5 PROSTHETIC VALVE RANGE Prothrombin time (PT) Coag time (PPP) 14.0 s [employer] RENAL FUNCTION PANELon 12-14 Albumin mass conc 2.2 G/dl Low 3.5 - 5 G/dl [facility] Calcium mass conc 8.1 mg/dL Low [facility]3] [facility] Chloride molar conc 104 mmol/L [facility] CO2 molar conc 25 mmol/L [facility] Creatinine mass conc 0.6 mg/dL [facility] GFR/1.73 sq M predicted among blacks MDRD vol rate/area (S/P/Bld) mL/min/{1.73_m2} ml/min/1.7 3sq.m [employer] GFR/1.73 sq M predicted among non-blacks MDRD vol rate/area (S/P/Bld) Average GFR for 60-69 years old = 85. [employer] Comment on above: Chronic Kidney disea se, GFR = <60. Kidney failure, GFR = <15. The GFR estimate is not adjusted for extreme body surface area or acute process, nor has it been validated for women or ethnic groups other than and . GFR/1.73 sq M predicted among non-blacks MDRD vol rate/area (S/P/Bld) mL/min/{1.73_m2} ml/min/1.7 3sq.m [employer] Glucose fasting mass conc 94 mg/dL [employer] Comment on above: NORMAL <100 mg/dL PREDIABETES 101-126 mg/dL DIABETES 126 mg/dL or higher Phosphate mass conc 4.1 mg/dL [employer] Potassium molar conc 3.1 mmol/L Low [employer] [facility] Sodium molar conc 139 mmol/L [employer] [facility] Urea nitrogen mass conc 7 mg/dL [employer] REPEAT ABO/RH (D) TYPINGon 0 12-14-2018 ABO and Rh group Nom (Bld ) Negative [employer] XR KNEE RIGHT 2 VIEWSon 11-30 XR KNEE RIGHT 2 VIEW S CLINICAL STATEMENT: TKA revision. COMPARISON: Right knee series January 10, 2018. TECHNIQUE: AP and crosstable lateral views. FINDINGS: Revised total knee arthroplasty appears in normal alignment. Surgical drain is present as well as a vertical row of ventral skin ashok. There is no visible postoperative fracture. Soft tissue gas is present consistent with recent surgery. [employer] User, Interfaces - 12/14/2018 6:41 PM EST XR KNEE RIGHT 2 VIEWS CLINICAL STATEMENT: TKA revision. COMPARISON: Right knee series January 10, 2018. TECHNIQUE: AP and crosstable lateral views. FINDINGS: Revised total knee arthroplasty appears in normal alignment. Surgical drain is present as well as a vertical row of ventral skin ashok. There is no visible postoperative fracture. Soft tissue gas is present consistent with recent surgery. IMPRESSION IMPRESSION: Revised total right knee arthroplasty without radiographic signs of hardware complications or acute osseous abnormality. [employer] IMPRESSION: Revised total right knee arthroplasty without radiographic signs of hardware complications or acute osseous abnormality. [employer] XR SPINE CERVICAL WITH OBL A ND FLEX/EXTon 12-14-2018 User, Interfaces - 12/14/2018 11:50 AM EST XR SPINE CERVICAL WITH OBL AND FLEX/EXT, 12/14/2018 11:06 AM EST CLINICAL STATEMENT: Rheumatoid arthritis. Evaluate subluxation. COMPARISON: None. FINDINGS: Five views of the cervical spine were obtained. Flexion and extension lateral views were also performed. The vertebral body heights and disc spaces are maintained. No acute fracture or malalignment. No abnormal motion is noted during flexion and extension. Facet hypertrophy is noted at multiple levels, left greater than right. There is a suggestion of bony neural foraminal narrowing at C4-C5 on the left. Odontoid is poorly visualized on the odontoid view although appears intact on other views. Prevertebral soft tissues are within normal limits. Visualized portions of the upper thorax are unremarkable. IMPRESSION IMPRESSION: No acute abnormality in the cervical spine. No abnormal motion noted during flexion and extension. 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 [employer] IMPRESSION: No acute abnormality in the cervical spine. No abnormal motion noted during flexion and extension. 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 [employer] XR SPINE CERVICAL WI TH OBL AND FLEX/EXT, 12/14/2018 11:06 AM EST CLINICAL STATEMENT: Rheumatoid arthritis. Evaluate subluxation. COMPARISON: None. FINDINGS: Five views of the cervical spine were obtained. Flexion and extension lateral views were also performed. The vertebral body heights and disc spaces are maintained. No acute fracture or malalignment. No abnormal motion is noted during flexion and extension. Facet hypertrophy is noted at multiple levels, left greater than right. There is a suggestion of bony neural foraminal narrowing at C4-C5 on the left. Odontoid is poorly visualized on the odontoid view although appears intact on other views. Prevertebral soft tissues are within normal limits. Visualized portions of the upper thorax are unremarkable. [employer] SCREEN: MRSA ONLY, NARES (IS OLATION SCREEN)on 12-13-2018 MRSA isol Org specific cx Ql (Nose) Negative [employer] STAPHYOCOCCUS AUREUS BY PCR Negative [employer] Comment on above: TESTING PERFORMED BY PCR Vital Signs Date Time Vital Sign Value Performing Clinician Facility 05-13-2025 13:15-0400 Body temperature 97.3 [degF] Dr. Galindo Gutierrez MD Work Phone: [facility] 05-13-2025 13:15-0400 Diastolic blood pressure 67 mm[Hg] Dr. Galindo Gutierrez MD Work Phone: [facility] 05-13-2025 13:15-0400 Heart rate 84 /min Dr. Galindo Gutierrez MD Work Phone: [facility] 05-13-2025 13:15-0400 Respiratory rate 24 /min Dr. Galindo Gutierrez MD Work Phone: [facility] 05-13-2025 13:15-0400 SaO2% (BldA) [Mass fraction] 90 % Dr. Galindo Gutierrez MD Work Phone: [facility] 05-13-2025 13:15-0400 Systolic blood pressure 122 mm[Hg] Dr. Galindo Gutierrez MD Work Phone: [facility] 05-13-2025 13:00-0400 Inhaled oxygen flow rate 2 L/min Dr. Galindo Gutierrez MD Work Phone: [facility] 05-13-2025 11:08-0400 Body height 162.[address] Galindo Gutierrez MD Work Phone: [facility] 05-13-2025 11:08-0400 Body mass index (BMI) [Ratio] 33.7 kg/m2 Dr. Galindo Gutierrez MD Work Phone: [facility] 05-13-2025 11:08-0400 Body weight [address] Galindo Gutierrez MD Work Phone: [facility] 08-20-2024 14:01-0400 Body height 162.6 cm Aubree Ireland MD Work Phone: [facility] 08-20-2024 14:01-0400 Diastolic blood pressure 78 mm[Hg] Aubree Ireland MD Work Phone: [facility] 08-20-2024 14:01-0400 Heart rate 84 /min Aubree Ireland MD Work Phone: [facility] 08-20-2024 14:01-0400 SaO2% (BldA) [Mass fraction] 97 % Aubree Ireland MD Work Phone: [facility] 08-20-2024 14:01-0400 Systolic blood pressure 132 mm[Hg] Aubree Ireland MD Work Phone: [facility] 09-23-2023 16:28-0500 SaO2% (BldA) [Mass fraction] 94 % TULIO ANTUNEZ MD~[id number] [facility] Comment on above: Performed By: #### [id number] #### [facility] [address] [place], [place] [address] [employer]rata SKINNER [id number] Performed for [facility] [address] [place], [place] [address] 12-22-2021 10:37-0500 Body height 165.1 cm Félix [employer] Work Phone: [email or web address] [facility] 12-22-2021 10:37-0500 Body mass index (BMI) [Ratio] 32.78 kg/m2 [employer] Work Phone: [place] 12-22-2021 10:37-0500 Body temperature 96.6 [degF] [employer] Work Phone: [place] 12-22-2021 10:37-0500 Body weight 89.36 kg [employer] Work Phone: [email or web address] [facility] 04-08-2020 10:24-0400 BMI (Body Mass Index) 31.38 kg/m2 [facility] 04-08-2020 10:24-0400 Body Temperature 98.4 [degF] [facility] [employer] 04-08-2020 10:24-0400 Body weight 85.55 kg [facility] [employer] 04-08-2020 10:24-0400 BP Diastolic 64 mm[Hg] [facility] [employer] 04-08-2020 10:24-0400 BP Systolic 118 mm[Hg] [facility] [employer] 04-08-2020 10:24-0400 Height 165.1 cm [facility] [employer] 04-08-2020 10:24-0400 Pulse (Heart Rate) 70 /min [facility] [employer] 04-08-2020 10:24-0400 Pulse Oximetry 97 % [facility] [employer] 12-25-2019 10:11-0500 BMI (Body Mass Index) 29.54 [facility]2 [facility] 12-25-2019 10:11-0500 Body Temperature 98.8 [degF] [facility] 12-25-2019 10:11-0500 Body weight 83.01 kg [facility] 12-25-2019 10:11-0500 Height 167.6 cm [facility] 12-04-2019 11:05-0500 BMI (Body Mass Index) 30.45 kg/m2 [facility] 12-04-2019 11:05-0500 Body Temperature 98.1 [degF] [facility] 12-04-2019 11:05-0500 Body weight 83.01 kg [facility] 12-04-2019 11:05-0500 BP Diastolic 60 mm[Hg] [facility] 12-04-2019 11:05-0500 BP Systolic 92 mm[Hg] [facility] 12-04-2019 11:05-0500 Pulse (Heart Rate) 88 /min [facility] 12-04-2019 11:05-0500 Pulse Oximetry 98 % [facility] 12-04-2019 11:05-0500 Respiratory Rate 14 /min [facility] 08-14-2019 11:29-0400 BMI (Body Mass Index) 31.28 kg/m2 [facility] 08-14-2019 11:29-0400 Body Temperature 97.7 [degF] [facility] 08-14-2019 11:29-0400 Body weight 85.28 kg [facility] 08-14-2019 11:29-0400 BP Diastolic 60 mm[Hg] [facility] 08-14-2019 11:29-0400 BP Systolic 108 mm[Hg] [facility] 08-14-2019 11:29-0400 Pulse (Heart Rate) 64 /min [facility] 08-14-2019 11:29-0400 Pulse Oximetry 99 % [facility] 08-14-2019 11:29-0400 Respiratory Rate 14 /min [facility] 05-15-2019 11:44-0400 BMI (Body Mass Index) 30.45 kg/m2 [facility] 05-15-2019 11:44-0400 Body weight 83.01 kg [facility] 05-15-2019 11:44-0400 BP Diastolic 62 mm[Hg] [facility] 05-15-2019 11:44-0400 BP Systolic 94 mm[Hg] [facility] 05-15-2019 11:44-0400 Pulse (Heart Rate) 68 /min [facility] 05-15-2019 11:44-0400 Pulse Oximetry 99 % [facility] 05-15-2019 11:44-0400 Respiratory Rate 12 /min [facility] 04-18-2019 10:52-0400 BMI (Body Mass Index) 30.62 kg/m2 [facility] 04-18-2019 10:52-0400 Body Temperature 97.3 [degF] [facility] 04-18-2019 10:52-0400 Height 165.1 cm [facility] 04-18-2019 10:52-0400 Weight 83.46 kg [facility] 04-03-2019 10:55-0400 BMI (Body Mass Index) 30.02 kg/m2 [facility] 04-03-2019 10:55-0400 Body Temperature 97.81 [degF] [facility] 04-03-2019 10:55-0400 Body weight 84.37 kg [facility] 04-03-2019 10:55-0400 BP Diastolic 66 mm[Hg] [facility] 04-03-2019 10:55-0400 BP Systolic 118 mm[Hg] [facility] 04-03-2019 10:55-0400 Pulse (Heart Rate) 78 /min [facility] 04-03-2019 10:55-0400 Pulse Oximetry 98 % [facility] 04-03-2019 10:55-0400 Respiratory Rate 14 /min [facility] 01-30-2019 10:09-0400 BMI (Body Mass Index) 30.02 kg/m2 [facility] 01-30-2019 10:09-0400 Body Temperature 97.7 [degF] [facility] 01-30-2019 10:09-0400 Pulse (Heart Rate) 58 /min [facility] 01-30-2019 10:09-0400 Pulse Oximetry 98 % [facility] 01-30-2019 10:09-0400 Respiratory Rate 14 /min [facility] 01-30-2019 10:09-0400 Weight 84.37 kg [facility] 01-16-2019 14:33-0400 BMI (Body Mass Index) 30.02 kg/m2 [facility] 01-16-2019 14:33-0400 Body Temperature 98.6 [degF] [facility] 01-16-2019 14:33-0400 BP Diastolic 62 mm[Hg] [facility] 01-16-2019 14:33-0400 BP Systolic 100 mm[Hg] [facility] 01-16-2019 14:33-0400 Pulse (Heart Rate) 90 /min [facility] 01-16-2019 14:33-0400 Pulse Oximetry 97 % [facility] 01-16-2019 14:33-0400 Respiratory Rate 12 /min [facility] 01-16-2019 14:33-0400 Weight 84.37 kg [facility] 01-16-2019 11:55-0400 BMI (Body Mass Index) 30.51 kg/m2 [facility] 01-16-2019 11:55-0400 Body Temperature 97.39 [degF] [facility] 01-16-2019 11:55-0400 Height 167.6 cm [facility] 01-16-2019 11:55-0400 Weight 85.73 kg [facility] 12-27-2018 14:39-0500 BMI (Body Mass Index) 30.51 kg/m2 [facility] 12-27-2018 14:39-0500 Body Temperature 97.11 [degF] [facility] 12-27-2018 14:39-0500 Height 167.6 cm [facility] 12-27-2018 14:39-0500 Weight 85.73 kg [facility] 12-26-2018 14:50-0500 BMI (Body Mass Index) 30.51 kg/m2 [facility] 12-26-2018 14:50-0500 Body Temperature 98.8 [degF] [facility] 12-26-2018 14:50-0500 Body weight 85.73 kg [facility] Comment on above: stated from Hospital 12-26-2018 14:50-0500 BP Diastolic 54 mm[Hg] [facility] 12-26-2018 14:50-0500 BP Systolic 96 mm[Hg] [facility] 12-26-2018 14:50-0500 Height 167.6 cm [facility] 12-26-2018 14:50-0500 Pulse (Heart Rate) 108 /min [facility] 12-26-2018 14:50-0500 Pulse Oximetry 98 % [facility] 12-26-2018 14:50-0500 Respiratory Rate 14 /min [facility] 12-17-2018 16:17-0500 Body Temperature 98.01 [degF] [facility] 12-17-2018 16:17-0500 BP Diastolic 61 mm[Hg] [facility] [employer] [facility] 12-17-2018 16:17-0500 BP Systolic 126 mm[Hg] [facility] 12-17-2018 16:17-0500 Pulse (Heart Rate) 55 /min [facility] 12-17-2018 16:17-0500 Pulse Oximetry 99 % [facility] 12-17-2018 16:17-0500 Respiratory Rate 14 /min [facility] 12-13-2018 18:00-0500 BMI (Body Mass Index) 30.51 kg/m2 [facility] 12-13-2018 18:00-0500 Height 167.6 cm [facility] 12-13-2018 18:00-0500 Weight 85.73 kg [facility] Encounters Encounter Date Encounter Type Care Provider Facility Start: 05-27-2025 End: 05-27-2025 Patient encounter procedure Allyson SOW -[facility] Work Phone: Start: 05-27-2025 End: 05-27-[address] Galindo Gutierrez MD Work Phone: -[facility] Start: 05-13-2025 ambulatory Galindo Gutierrez Facility:[facility] Start: 05-13-2025 Non-patient / Non-visit [facility] Start: 05-13-2025 End: 05-13-2025 Admission to same day surgery [facility] DO -Endoscopy Work Phone: Start: 05-13-2025 End: 05-13-[address] Galindo Gutierrez MD Work Phone: -Endoscopy Start: 04-04-2025 Non-patient / Non-visit Dr. Freedom Collier MD -[facility] Start: 04-04-2025 End: 04-04-[address] Galindo Gutierrez MD Work Phone: [facility] Work Phone: Start: 04-04-2025 End: 04-04-[address] Galindo Gutierrez MD -Cardiovascular Services Work Phone: Start: 04-04-2025 End: 04-04-2025 ambulatory Galindo Gutierrez Facility:[facility] Start: 03-20-2025 End: 03-20-[address] Galindo Gutierrez MD Work Phone: [facility] Work Phone: Start: 03-20-2025 End: 03-20-2025 Patient encounter procedure Allyson SOW -[facility] Work Phone: Start: 03-20-2025 End: 03-20-2025 ambulatory Allyson Barkley Facility:[facility] Start: 03-18-2025 End: 03-18-2025 Patient encounter procedure Allyson SOW -[facility] Work Phone: Start: 03-18-2025 End: 03-18-[address] Galindo Gutierrez MD Work Phone: [facility] Work Phone: Start: 03-17-2025 End: 03-17-2025 ambulatory GALINDO GUTIERREZ [facility] Start: 03-04-2025 End: 03-04-[address] Galindo Gutierrez MD Work Phone: [facility] Work Phone: Start: 03-04-2025 End: 03-04-2025 Patient encounter procedure Allyson Barkley [facility] Work Phone: Start: 03-04-2025 End: 03-04-2025 Patient encounter procedure Allyson Barkley [facility] Work Phone: Start: 03-04-2025 End: 03-04-2025 ambulatory Allsyon Filippo Facility[facility] Start: 03-04-2025 End: 03-04-2025 ambulatory Allyson Barkley Facility:[facility] Start: 11-14-2024 End: 11-14-2024 Admission to same day surgery center Billie Senthil COFFEY Work Phone: [facility] Comment on above: Liver lesion (Primar y Dx); Bilious vomiting with nausea; Gastric perforation (HCC) Start: 11-14-2024 End: 11-14-2024 Telemedicine consultation with patient Billie Joseph ERLINDA Work Phone: [facility] Start: 11-14-2024 End: 11-14-2024 ambulatory GALINDO GUTIERREZ Facility:[facility] Start: 11-04-2024 End: 11-04-2024 Subsequent hospital visit by physician Pinky [facility] ([facility]-Stat) Work Phone: Cat Scan Comment on above: Liver lesion [K76.9] Start: 11-04-2024 End: 11-04-2024 ambulatory AUBREE IRELAND Facility:[facility] Start: 10-29-2024 End: 10-29-2024 Orders Only Aubree Ireland MD Work Phone: [facility] Comment on above: Liver lesion (Primar y Dx) Start: 08-20-2024 End: 08-20-2024 Office outpatient visit 25 minutes Aubree Ireland MD Work Phone: [facility] Comment on above: Liver lesion (Primar y Dx); Diarrhea of presumed infectious origin Start: 08-20-2024 End: 08-20-2024 ambulatory AUBREE IRELAND Facility:[facility] Start: 08-13-2024 End: 08-13-2024 ambulatory AUBREE IRELAND Facility:[facility] Start: 08-13-2024 End: 08-13-2024 Subsequent hospital visit by physician [facility] (I-Stat) Work Phone: Cat Scan Comment on above: Acute pancreatitis, unspecified complication status, unspecified pancreatitis type [K85.90] Start: 08-01-2024 End: 08-01-2024 Orders Only Aubree Ireland MD Work Phone: [facility] Comment on above: Acute pancreatitis, unspecified complication status, unspecified pancreatitis type (Primary Dx) Start: 07-31-2024 End: 07-31-2024 Evaluation and management of inpatient YAYA MITCHELL CERVANTESMAN Facility:[facility] Start: 07-28-2024 Evaluation and management of inpatient Steven GALINDO MIREILLE Facility:[facility] Start: 07-28-2024 End: 07-28-2024 Emergency department patient visit Toribio Genaogreer Facility:[facility] Start: 07-09-2024 End: 07-09-2024 ambulatory [facility] Start: 07-02-2024 End: 07-02-2024 ambulatory [facility] Start: 05-26-2024 End: 05-26-2024 Emergency department patient visit BA LOVE [facility] Start: 09-23-2023 End: 09-25-2023 Evaluation and management of inpatient TULIO ANTUNEZ MD~[id number] Facility:[facility] Start: 12-21-[address] [facility] Start: 12-22-2021 End: 12-22-2021 Office outpatient visit 15 minutes Galindo Zepeda MD Work Phone: [facility] Comment on above: Hx of total knee art hroplasty, right (Primary Dx) Start: 12-22-2021 End: 12-22-2021 Subsequent hospital visit by physician Félix Moulton [employer] Work Phone: [facility] Start: 12-24-2020 End: 12-24-2020 Subsequent hospital visit by physician Félix Moulton Work Phone: [facility] Start: 04-08-2020 End: 04-08-2020 Office outpatient visit 15 minutes Maximiliano A Ezike Work Phone: [facility] Comment on above: Joint infection (Mica jose e Dx) Start: 12-25-2019 End: 12-25-2019 Office outpatient visit 15 minutes Félix Moulton Work Phone: [facility] Comment on above: History of total kne e arthroplasty, right (Primary Dx) Start: 12-25-2019 End: 12-25-2019 Subsequent hospital visit by physician Félix Moulton Work Phone: [facility] Start: 12-04-2019 End: 12-04-2019 Office outpatient visit 15 minutes Maximiliano A Ezike Work Phone: [facility] Comment on above: Cellulitis of skin w ith lymphangitis (Primary Dx); Joint infection Start: 08-14-2019 End: 08-14-2019 Office outpatient visit 15 minutes Maximiliano A Ezike Work Phone: [facility] Comment on above: Joint infection (Mica jose e Dx) Start: 05-15-2019 End: 05-15-2019 Office outpatient visit 15 minutes Maximiliano A Ezike Work Phone: [facility] Comment on above: Cellulitis of skin w ith lymphangitis (Primary Dx); Joint infection Start: 04-18-2019 End: 04-18-2019 Office outpatient visit 15 minutes Galindo Zepeda Work Phone: [facility] Comment on above: 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) Start: 04-18-2019 End: 04-18-2019 Subsequent hospital visit by physician Galindo Zepeda Work Phone: [facility] Start: 04-03-2019 End: 04-03-2019 Office outpatient visit 15 minutes [employer] Work Phone: [facility] Comment on above: Cellulitis of skin w ith lymphangitis (Primary Dx) Start: 02-11-2019 End: 02-11-2019 Patient encounter procedure Historical Provider [facility] Start: 02-07-2019 End: 02-07-2019 Telephone encounter [employer] Work Phone: [facility] Comment on above: Medication Reaction Start: 01-30-2019 End: 01-30-2019 Patient encounter procedure Historical Provider [facility] Start: 01-30-2019 End: 01-30-2019 Office outpatient visit 25 minutes [employer] Work Phone: [facility] Comment on above: Cellulitis of right lower extremity (Primary Dx) Start: 01-21-2019 End: 01-21-2019 Telephone encounter [employer] Work Phone: [facility] Comment on above: Order Request Start: 01-16-2019 End: 01-16-2019 Office outpatient visit 15 minutes [employer] Work Phone: [facility] Comment on above: Joint infection (Mica jose e Dx) Start: 01-16-2019 End: 01-16-2019 Postop follow up visit related to original px Félix Moulton Work Phone: [facility] Comment on above: 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) Start: 01-02-2019 End: 01-02-2019 Patient encounter procedure Historical Provider [facility] Start: 12-27-2018 End: 12-27-2018 Postop follow up visit related to original px Félix Moulton Work Phone: [facility] Comment on above: 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) Start: 12-27-2018 End: 12-27-2018 Patient encounter procedure Félix Moulton Work Phone: [facility] Start: 12-26-2018 End: 12-26-2018 Office outpatient visit 25 minutes Maximiliano Mayo Work Phone: [facility] Comment on above: Cellulitis of right lower extremity (Primary Dx); Joint infection Start: 12-24-2018 End: 12-24-2018 Patient encounter procedure Jordy Reneerakaniwona 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 Comment on above: Acute postoperative pain of right knee Start: 12-14-2018 Notes/Results Only Galindo cota Work Phone: [facility] Start: 12-14-2018 End: 12-14-2018 Patient encounter procedure Galindo Zepeda Work Phone: [facility] Comment on above: 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 j oint, initial encounter (Primary Dx) Start: 12-13-2018 End: 12-17-2018 Evaluation and management of inpatient Darren Seifu Work Phone: [facility] Comment on above: Cellulitis Procedures Date Procedure Procedure Detail Performing Clinician Start: 05-13-[address] Galindo ochoa MD Work Phone: Start: 03-20-[address] emptying study Dr[address] Galindo Gutierrez MD Work Phone: Start: 07-28-2024 Antibody screen AUBREE IRELAND Comment on above: Order Comment: Specimen Type: BLOOD SPEC IMEN Ordering Facility: [facility] Address: [address] [place] [address] Performed By: #### T SCR #### [facility] CLIA [id number] [address] [place] Start: 01-23-2019 LABS (OUTSIDE) Historical Provider Start: 12-20-2018 LABS (OUTSIDE) Historical Provider Start: 12-17-2018 Plain chest X-ray Han Arreaga Work Phone: Start: 12-17-2018 Assay of iron Katie Barriga Juarez Work Phone: Start: 12-17-2018 B12 & FOLATE Katie Barriga Juarez Work Phone: Start: 12-17-2018 CBC, EDIF, PLATELET Katie Pizarro Work Phone: Start: 12-17-2018 Prothrombin time Félix Saige Work Phone: Start: 12-17-2018 Renal function panel Katie Pizarro Work Phone: Start: 12-16-2018 Blood count complete auto&auto difrntl wbc Katie Pizarro Work Phone: Start: 12-16-2018 Prothrombin time Félix Saige Work Phone: Start: 12-16-2018 Renal function panel Katie Pizarro Work Phone: Start: 12-15-2018 Blood count complete auto&auto difrntl wbc Katie Pizarro Work Phone: Start: 12-15-2018 Prothrombin time Félix Saige Work Phone: Start: 12-15-2018 Renal function panel Katie Pizarro Work Phone: Start: 12-14-2018 Mammography Félix Saige Work Phone: Start: 12-14-2018 End: 12-14-2018 Incision & drainage abscess complicated/multiple Galindo Zepeda Work Phone: Start: 12-14-2018 End: 12-14-2018 Unlisted procedure femur/knee Galindo Garcia er Work Phone: Start: 12-14-2018 Radiography of cervical spine Jayro everett Work Phone: Start: 12-14-2018 Standard ECG Jayro Marquez Work Phone: Start: 12-14-2018 Natriuretic peptide Jayro Marquez Work Phone: Start: 12-14-2018 Echocardiography Katie Pizarro Work Phone: Start: 12-14-2018 SURGICAL PATHOLOGY REQUEST Galindo Zepeda Work Phone: Start: 12-14-2018 Blood count complete auto&auto difrntl wbc Katie L Juarez Work Phone: Start: 12-14-2018 Prothrombin time Katie L Juarez Work Phone: Start: 12-14-2018 Renal function panel Katie L Juarez Work Phone: Start: 12-14-2018 REPEAT ABO/RH (D) TYPING Félix Moulton Work Phone: Start: 12-13-2018 Cultyp nuc acid amp prb cult/isolate ea orgnism Katie Barriga Juarez Work Phone: Start: 03-05-2008 Colonoscopy Aubree Ireland MD Work Phone: Plan of Treatment Date Care Activity Detail Author Start: 08-01-2027 Diabetes Screening Diabetes Screening [facility] Start: 05-13-2025 Endoscopy upper small intestine w/biopsy SMALL BOWEL ENDOSCOPY/BIOPSY [facility] Start: 05-13-2025 Patient discharge [facility] Start: 11-14-2024 End: 11-14-2024 Admission to same day surgery center 11/14/2024 2:00 PM EST [facility] [address] [facility] 3rd Floor [place] [id number] Billie Joseph PA-C [address] [place] [address] F/U CT (11/04) [facility] Comment on above: F/U CT (11/04) Start: 11-04-2024 End: 11-04-2024 Patient encounter procedure 11/04/2024 3:00 PM EST Appointment Cat Scan [address] [place] [address] Liver lesion [K76.9] Cat Scan Comment on above: Liver lesion [K76.9] Start: 10-30-2024 Advance Directive Discussion Advance Directive Discussion [facility] Start: 10-29-2024 End: 01-28-2025 CREATININE BLD CREATININE BLD Lab Routine Liver lesion Expected: 10/29/2024, Expires: 01/28/2025 [facility] Work Phone: Comment on above: Expected: 10/29/2024, Expires: Start: 08-20-2024 End: 08-20-2024 Patient encounter procedure [facility] Comment on above: F/U CT, hospital F/U CT (08/13), hosp ital Start: 08-13-2024 End: 08-13-2024 Patient encounter procedure 08/13/2024 3:00 PM EDT Appointment Cat Scan [address] [place] [address] Acute pancreatitis, unspecified complication status, unspecified pancreatitis type [K85.90] Cat Scan Comment on above: Acute pancreatitis, unspecified complica tion status, unspecified pancreatitis type [K85.90] Start: 06-30-2024 Influenza vaccination Influenza Vaccine (#1) [facility] Start: 10-30-2023 Advance Directive Discussion Advance Directive Discussion [facility] Start: 12-21-2022 End: 12-21-2022 Patient encounter procedure 12/21/2022 Office Visit Orthopaedics Galindo Zepeda MD [address] [place] [address] [facility] Start: 12-22-2021 End: 12-22-2021 Office Visit 12/22/2021 Office Visit Orthopaedics Félix Moulton APRN-CNP [address] [place] [address] [phone] [facility] Start: 02-27-2021 Covid-19 Vaccine (3 - Moderna risk series) Covid-19 Vaccine (3 - Moderna risk series) [facility] Start: 12-24-2020 End: 12-24-2020 Office Visit 12/24/2020 Office Visit Orthopaedics Félix Moulton, [employer] [address] [place] [address] [facility] Start: 06-30-2020 Influenza vaccination INFLUENZA VACCINE (#1) [facility] Start: 2020 Pneumococcal vaccination PNEUMOCOCCAL VACCINE SERIES (1 of 2 - PCV13) [facility] Start: 2020 Screening for osteoporosis Bone Density Screening [facility] Start: 04-08-2020 End: 04-08-2020 Office Visit 04/08/2020 Office Visit Infectious Diseases Maximiliano Mayo MD [address] [place] [address] [phone] [facility] Start: 12-25-2019 End: 12-25-2019 Office Visit 12/25/2019 Office Visit Orthopaedics Félix Moulton, [employer] [address] [place] [address] [phone] [facility] Start: 12-04-2019 End: 12-04-2020 Basic metabolic 2000 panel BASIC METABOLIC PANEL Lab Routine Cellulitis of skin with lymphangitis Expected: 12/04/2019, Expires: 12/04/2020 [facility] Comment on above: Expected: 12/04/2019, Expires: Start: 12-04-2019 End: 12-04-2020 CBC, EDIF, PLATELET CBC, EDIF, PLATELET Lab Routine Cellulitis of skin with lymphangitis Expected: 12/04/2019, Expires: 12/04/2020 [facility] Comment on above: Expected: 12/04/2019, Expires: Start: 12-04-2019 End: 12-04-2020 CRP [Mass/Vol] C REACTIVE PROTEIN Lab Routine Cellulitis of skin with lymphangitis Expected: 12/04/2019, Expires: 12/04/2020 [facility] Comment on above: Expected: 12/04/2019, Expires: Start: 12-04-2019 End: 12-04-2020 SEDIMENTATION RATE, AUTOMATED SEDIMENTATION RATE, AUTOMATED Lab Routine Cellulitis of skin with lymphangitis Expected: 12/04/2019, Expires: 12/04/2020 [employer] Comment on above: Expected: 12/04/2019, Expires: 1 Start: 12-04-2019 End: 12-04-2019 Office Visit 12/04/2019 Office Visit Infectious Diseases Maximiliano Mayo MD [address] [place] [address] [phone] [facility] Start: 08-14-2019 End: 08-14-2020 Basic metabolic 2000 panel BASIC METABOLIC PANEL Lab Routine Joint infection Expected: 08/14/2019, Expires: 08/14/2020 [facility] [employer] Comment on above: Expected: 08/14/2019, Expires: 0 Start: 08-14-2019 End: 08-14-2020 CBC, EDIF, PLATELET CBC, EDIF, PLATELET Lab Routine Joint infection Expected: 08/14/2019, Expires: 08/14/2020 [facility] [employer] Comment on above: Expected: 08/14/2019, Expires: 0 Start: 08-14-2019 End: 08-14-2020 CRP [Mass/Vol] C REACTIVE PROTEIN Lab Routine Joint infection Expected: 08/14/2019, Expires: 08/14/2020 [facility] [employer] Comment on above: Expected: 08/14/2019, Expires: 0 Start: 08-14-2019 End: 08-14-2020 SEDIMENTATION RATE, AUTOMATED SEDIMENTATION RATE, AUTOMATED Lab Routine Joint infection Expected: 08/14/2019, Expires: 08/14/2020 [facility] Comment on above: Expected: 08/14/2019, Expires: 0 Start: 08-14-2019 End: 08-14-2019 Office Visit 08/14/2019 Office Visit Infectious Diseases Maximiliano Mayo MD [address] [place] [address] [phone] [facility] Start: 06-30-2019 Influenza vaccination INFLUENZA VACCINE (#1) [facility] Start: 05-15-2019 End: 05-15-2020 Basic metabolic 2000 panel BASIC METABOLIC PANEL Lab Routine Cellulitis of skin with lymphangitis Joint infection Expected: 05/15/2019, Expires: 05/15/2020 [facility] Comment on above: Expected: 05/15/2019, Expires: 0 Start: 05-15-2019 End: 05-15-2020 CBC, EDIF, PLATELET CBC, EDIF, PLATELET Lab Routine Cellulitis of skin with lymphangitis Joint infection Expected: 05/15/2019, Expires: 05/15/2020 [facility] Comment on above: Expected: 05/15/2019, Expires: 0 Start: 05-15-2019 End: 05-15-2020 CRP [Mass/Vol] C REACTIVE PROTEIN Lab Routine Cellulitis of skin with lymphangitis Joint infection Expected: 05/15/2019, Expires: 05/15/2020 [facility] Comment on above: Expected: 05/15/2019, Expires: 0 Start: 05-15-2019 End: 05-15-2020 SEDIMENTATION RATE, AUTOMATED SEDIMENTATION RATE, AUTOMATED Lab Routine Cellulitis of skin with lymphangitis Joint infection Expected: 05/15/2019, Expires: 05/15/2020 [facility] Comment on above: Expected: 05/15/2019, Expires: 0 Start: 05-15-2019 End: 05-15-2019 Office Visit 05/15/2019 Office Visit Infectious Diseases Maximiliano Mayo MD [address] [place] [address] [phone] [facility] Start: 04-18-2019 End: 04-18-2019 Office Visit 04/18/2019 Office Visit Orthopaedics Galindo Zepeda MD [address] [place] [address] [phone] [facility] Start: 04-03-2019 End: 04-03-2020 Basic metabolic 2000 panel BASIC METABOLIC PANEL Lab Routine Cellulitis of skin with lymphangitis Expected: 04/03/2019, Expires: 04/03/2020 [facility] Comment on above: Expected: 04/03/2019, Expires: 0 Start: 04-03-2019 End: 04-03-2020 CBC, EDIF, PLATELET CBC, EDIF, PLATELET Lab Routine Cellulitis of skin with lymphangitis Expected: 04/03/2019, Expires: 04/03/2020 [facility] Comment on above: Expected: 04/03/2019, Expires: 0 Start: 04-03-2019 End: 04-03-2020 CRP [Mass/Vol] C REACTIVE PROTEIN Lab Routine Cellulitis of skin with lymphangitis Expected: 04/03/2019, Expires: 04/03/2020 [facility] Comment on above: Expected: 04/03/2019, Expires: 0 Start: 04-03-2019 End: 04-03-2020 SEDIMENTATION RATE, AUTOMATED SEDIMENTATION RATE, AUTOMATED Lab Routine Cellulitis of skin with lymphangitis Expected: 04/03/2019, Expires: 04/03/2020 [facility] Comment on above: Expected: 04/03/2019, Expires: 0 Start: 03-13-2019 End: 03-13-2019 Office Visit 03/13/2019 Office Visit Infectious Diseases Maximiliano Mayo MD [address] [place] [address] [phone] [facility] Start: 01-30-2019 End: 01-31-2020 Basic metabolic 2000 panel BASIC METABOLIC PANEL Lab Routine Cellulitis of right lower extremity Expected: 01/30/2019, Expires: 01/31/2020 [facility] Comment on above: Expected: 01/30/2019, Expires: 0 Start: 01-30-2019 End: 01-31-2020 CBC, EDIF, PLATELET CBC, EDIF, PLATELET Lab Routine Cellulitis of right lower extremity Expected: 01/30/2019, Expires: 01/31/2020 [facility] Comment on above: Expected: 01/30/2019, Expires: 0 Start: 01-30-2019 End: 01-31-2020 CRP mass conc C REACTIVE PROTEIN Lab Routine Cellulitis of right lower extremity Expected: 01/30/2019, Expires: 01/31/2020 [facility] Comment on above: Expected: 01/30/2019, Expires: 0 Start: 01-30-2019 End: 01-31-2020 SEDIMENTATION RATE, AUTOMATED SEDIMENTATION RATE, AUTOMATED Lab Routine Cellulitis of right lower extremity Expected: 01/30/2019, Expires: 01/31/2020 [facility] Comment on above: Expected: 01/30/2019, Expires: 0 Start: 01-30-2019 End: 01-30-2019 Office Visit 01/30/2019 Office Visit Infectious Diseases Maximiliano Mayo MD [address] [place] [address] [phone] [facility] Start: 01-16-2019 End: 01-16-2019 Office Visit 01/16/2019 Office Visit Infectious Diseases Maximiliano Mayo MD [address] [place] [address] [phone] [facility] Start: 01-16-2019 End: 01-16-2019 Office Visit 01/16/2019 Office Visit Orthopaedics Félix Moulton, [employer] [address], [place] [address] [phone] [facility] Start: 12-27-2018 End: 12-27-2018 Office Visit [facility] Start: 12-26-2018 End: 12-26-2018 Office Visit 12/26/2018 Office Visit Infectious Diseases Maximiliano Mayo MD [address] [place] [address] [phone] [facility] Start: 12-17-2018 Urine microalbumin profile DTaP,Tdap,Td Vaccine (1 - Tdap) [facility] Start: 12-14-2018 End: 01-11-2019 ACID FAST CULTURE ACID FAST CULTURE Microbiology Routine 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 joint, initial encounter Expected: 12/14/2018, Expires: 01/11/2019 [employer] [facility] Comment on above: Expected: 12/14/2018, Expires: 9 Start: 12-14-2018 End: 01-11-2019 BODY FLUID CULTURE AND DIRECT SMEAR BODY FLUID CULTURE AND DIRECT SMEAR Microbiology Routine 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 joint, initial encounter Expected: 12/14/2018, Expires: 01/11/2019 [employer] Comment on above: Expected: 12/14/2018, Expires: 9 Start: 12-14-2018 End: 01-11-2019 CRYSTALS, FLUID CRYSTALS, FLUID Fluids Routine 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 joint, initial encounter Expected: 12/14/2018, Expires: 01/11/2019 [employer] Comment on above: Expected: 12/14/2018, Expires: 9 Start: 12-14-2018 End: 01-11-2019 FUNGUS CULTURE FUNGUS CULTURE Microbiology Routine 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 joint, initial encounter Expected: 12/14/2018, Expires: 01/11/2019 [employer] Comment on above: Expected: 12/14/2018, Expires: 9 Start: 12-14-2018 End: 01-11-2019 GLUCOSE BODY FLUID GLUCOSE BODY FLUID Fluids Routine 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 joint, initial encounter Expected: 12/14/2018, Expires: 01/11/2019 [employer] Comment on above: Expected: 12/14/2018, Expires: 9 Start: 12-14-2018 End: 01-11-2019 SMEAR, GRAM STAIN SMEAR, GRAM STAIN Microbiology Routine 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 joint, initial encounter Expected: 12/14/2018, Expires: 01/11/2019 [employer] Comment on above: Expected: 12/14/2018, Expires: 9 Start: 12-14-2018 End: 01-11-2019 SYNOVIAL FLUID CELL COUNT SYNOVIAL FLUID CELL COUNT Fluids Routine 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 joint, initial encounter Expected: 12/14/2018, Expires: 01/11/2019 [employer] Comment on above: Expected: 12/14/2018, Expires: 9 Start: 09-28-2018 Pneumococcal Vaccine: 50+ (3 of 3 - PPSV23, PCV20 or PCV21) Pneumococcal Vaccine: 50+ (3 of 3 - PPSV23, PCV20 or PCV21) [facility] Start: 09-28-2018 Pneumococcal Vaccine: 65+ (3 of 3 - PPSV23 or PCV20) Pneumococcal Vaccine: 65+ (3 of 3 - PPSV23 or PCV20) [facility] Start: 2015 RSV Vaccine (1 - Risk 60-74 years 1-dose series) RSV Vaccine (1 - Risk 60-74 years 1-dose series) [facility] Start: 11-05-2013 Screening for malignant neoplasm of breast Mammogram Screening [facility] Start: 03-05-2009 Screening for malignant neoplasm of colon [facility] Start: 2005 Colonoscopy [facility] Start: 2005 Protein mass conc COLON CANCER SCREENING DISCUSSION [facility] Start: 2005 Screening for malignant neoplasm of lung Lung Cancer Screening [facility] Start: 2005 Zoster vaccine hzv live for subcutaneous use ZOSTER (SHINGLES) VACCINE (1 of 2) [facility] Start: 2000 Colonoscopy COLORECTAL CANCER SCREENING DISCUSSION [facility] Start: 2000 Lipid panel Lipid Screening [facility] Start: 2000 Screening for malignant neoplasm of colon [facility] Start: 1995 Fasting lipid profile L[facility]ID SCREENING [email or web address] Start: 1995 Protein mass conc MAMMOGRAM SCREENING DISCUSSION [facility] Start: 1995 Screening mammography MAMMOGRAM SCREENING DISCUSSION [facility] Start: 1976 Screening for malignant neoplasm of cervix [facility] Start: 1974 Shingrix Vaccine (1 of 2) Shingrix Vaccine (1 of 2) [facility] Start: 1974 Third diphtheria, tetanus and acellular pertussis (DTaP) vaccination TDAP (ADULT) [facility] Start: 1973 Anxiety Screening Anxiety Screening [facility] Start: 1973 Depression Screening Depression Screening [facility] Start: 1973 Hepatitis C screening Hepatitis C Screening [facility] Start: 1973 Tetanus vaccination TETANUS [facility] Start: 1971 COVID-19 VACCINE (1 of 2) COVID-19 VACCINE (1 of 2) [facility] Start: 1968 HIV screening HIV SCREENING DISCUSSION [facility] Start: 1966 Screening for malignant neoplasm of cervix Cervical Cancer Screening [facility] Start: 1961 Pneumococcal vaccination PNEUMOCOCCAL VACCINE SERIES (1 of 2 - PPSV23) [facility] Start: 1960 COVID-19 VACCINE (1) COVID-19 VACCINE (1) [facility] Start: 1955 Hepatitis C antibody, confirmatory test HEPATITIS C VIRUS SCREENING [facility] Start: 1955 Screening for osteoporosis DEXA SCAN DISCUSSION [facility] Start: 1955 Thyroid stimulating hormone measurement TSH [facility] Start: 1955 Thyrotropin Qn TSH [employer] ACID FAST CULTURE [facility] HEAL TH ANAEROBE CULTURE [facility] BODY FLUID CELL COUNT BODY FLUID CELL COUNT Fluids Routine 12/14/2018 8:30 AM EST [employer] BODY FLUID CULTURE A ND DIRECT SMEAR BODY FLUID CULTURE AND DIRECT SMEAR Microbiology Routine 12/14/2018 8:30 AM [employer] CBC, EDIF, PLATELET CBC, EDIF, P LATELET Lab Routine Every morning Lab until discontinued starting 12/14/2018, 4 completed [employer] [facility] Comment on above: Every morning Lab until discontinued sta rting 12/14/2018, 4 completed Clostridioides diffi cile toxin genes [Presence] in Stool by GUS with probe detection C. DIFFICILE PCR Lab Routine Diarrhea of presumed infectious origin Ordered: 08/20/2024 [facility] Comment on above: Ordered: 08/20/2024 CRYSTALS, FLUID CRYSTALS, FLUID Fluids Routine 12/14/2018 8:30 AM [employer] End: 09-19-2025 CT Liver W contrast IV CT LIVER W IVCON Radiology Routine Liver lesion 1 Occurrences starting 08/20/2024 until 09/19/2025 [facility] Comment on above: 1 Occurrences starting 08/20/2024 until 09/19/2025 CT Liver W contrast IV CT LIVER W IVCON Radiology Routine Liver lesion 11/04/2024 3:22 PM EST [facility] Work Phone: End: 08-31-2025 CT Pancreas W contrast IV CT PANCREAS W IVCON Radiology Routine Acute pancreatitis, unspecified complication status, unspecified pancreatitis type 1 Occurrences starting 08/01/2024 until 08/31/2025 [facility] Work Phone: Comment on above: 1 Occurrences starting 08/01/2024 until 08/31/2025 CT Pancreas W contrast IV CT [facility] W IVCON Radiology Routine Acute pancreatitis, unspecified complication status, unspecified pancreatitis type 08/13/2024 3:40 PM EDT [facility] Work Phone: DIFFERENTIAL, FLUID DIFFERENTIAL , FLUID Fluids Routine 12/14/2018 8:30 AM [employer] FUNGUS CULTURE [employer] GLUCOSE BODY FLUID GLUCOSE BODY FLUID Fluids Routine 12/14/2018 8:30 AM EST [employer] End: 09-19-2025 MR Liver WO and W contrast IV MRI LIVER WO/W IVCON Radiology Routine Liver lesion 1 Occurrences starting 08/20/2024 until 09/19/2025 [facility] Work Phone: Comment on above: 1 Occurrences starting 08/20/2024 until 09/19/2025 Patient referral [facility] Work Phone: End: 12-17-2018 PICC LINE PLACEMENT/REMOVAL PICC LINE PLACEMENT/REMOVAL Procedures Routine One Time for 1 Occurrences starting 12/17/2018 until 12/17/2018 [employer] Comment on above: One Time for 1 Occurrences starting 11/30 until 12/17/2018 PROTIME-INR PROTIME-INR Lab Routine Every morning Lab until discontinued starting 12/15/2018, 3 completed [employer] Comment on above: Every morning Lab until discontinued sta rting 12/15/2018, 3 completed Radiography for bone length studies XR BONE LENGTH STUDY Imaging Routine History of revision of total replacement of right knee joint 04/18/2019 10:40 AM EDT [employer] Radionuclide gastric emptying study [facility] RENAL FUNCTION PANEL RENAL FUNCT ION PANEL Lab Routine Every morning Lab until discontinued starting 12/14/2018, 4 completed [employer] Comment on above: Every morning Lab until discontinued sta rting 12/14/2018, 4 completed TISSUE CULTURE [employer] End: 12-14-2018 Transthoracic echocardiography ECHOCARDIOGRAM Echocardiography STAT One Time for 1 Occurrences starting 12/14/2018 until 12/14/2018 [employer] Comment on above: One Time for 1 Occurrences starting 11/30 until 12/14/2018 Transthoracic echocardiography ECHOCARDIOGRAM Echocardiography STAT 12/14/2018 11:04 AM [employer] TYPE AND SCREEN - POSSIBLE TRANSFUSION TYPE AND SCREEN - POSSIBLE TRANSFUSION Blood Bank Today 12/14/2018 10:42 AM [employer] X-ray of right knee JONATHON ASTUDILLO Comment on above: Ordered: 01/04/2019 X-ray of right knee XR KNEE RIGH T 3 VIEWS Imaging Routine Hx of total knee arthroplasty, right 12/22/2021 10:36 AM [employer] Immunizations Immunization Date Immunization Notes Care Provider Fa [facility] 10-09-2023 influenza virus vaccine, unspecified formulation Aubree Ireland MD Work Phone: [facility] 08-03-2018 influenza virus vaccine, unspecified formulation [facility] Payers Date Payer Category Payer Self-pay 2024 Medicare HUMANA MEDICARE HU[employer]NA MEDICARE PPO [id number] 2024-Present [phone] [id number] [place] [address] PPO [id number] 2016 Medicaid MEDICAID MEDICAI D xxxxxxxxxxxx 2016-Present xxxxxxxxxxxx [id number] 2016 Medicaid [id number] 2015 Medicare xxxxxxxxx [id number] 2015 Medicare [id number] .[id number] 2012 Medicaid [id number] .[id number] 2012 Medicare [id number] 2011 Medicare [id number] 1959 Medicaid [id number] 1955 Unknown [id number] 2.16.840.1.418744.3.579.2.983 1955 Unknown [id number] 2.16.840.1.829531.3.579.2.983 1955 Unknown [id number] 2.16.840.1.465150.3.579.2.419 1955 Unknown [id number] 2.16.840.1.275371.3.579.2.651 1955 Unknown [id number] 2.16.840.1.754031.3.579.2.651 1955 Unknown [id number] 2.16.840.1.725317.3.579.2.651 1955 Unknown [id number] 2.16.840.1.843254.3.579.2.651 Unknown [id number] 2.16.840.1.905110.3.579.2.462 Unknown [id number] 2.16.840.1.032903.3.579.2.462 Unknown [id number] 2.16.840.1.147711.3.579.2.462 Unknown [id number] 2.16.840.1.888392.3.579.2.462 Unknown [id number] 2.16.840.1.544726.3.579.2.462 Unknown [id number] 2.16.840.1.019957.3.579.2.462 Unknown [id number] 2.16.840.1.710557.3.579.2.462 Unknown [id number] 2.16.840.1.361442.3.579.2.462 Unknown [id number] 2.16.840.1.507332.3.579.2.462 Unknown [id number] 2.16.840.1.532748.3.579.2.462 Social History Date Type Detail Facility Start: 12-13-2018 End: 05-13-2025 Tobacco smoking status INIS Current every day smoker [facility] [employer] Start: 01-11-1968 History of tobacco use Cigarette Smoker [employer] Start: 12-13-2018 End: 07-29-2024 Cigarettes smoked current (pack per day) - Reported [facility] History of tobacco use Snuff User [facility] Start: 1955 Sex Assigned At Not on file A JAYY [employer] Start: 08-14-2019 End: 07-29-2024 Alcohol intake No [employer] Start: 12-04-2019 End: 08-20-2024 Alcohol intake Current non-drinker of alcohol (finding) [employer] Start: 01-10-2018 End: 12-25-2019 Tobacco use and exposure Never used [employer] Exposure to SARS-CoV-2 (event) Not sure [employer] National Score (1-100), lower number is lower risk 55 [facility] Start: 1955 Sex assigned at Female C [facility] Start: 07-29-2024 Gender identity Identifies as female gender (finding) [facility] NEGATED: Highlighted row Not [facility] Medical Equipment Procedure Code Equipment Code Equipment Origin al Text Equipment Identifier Dates Tibial Insert Re f Start: 12-14-2018 Comment on above: Description: Ref 96-0512 Lot [id number] tivial insert Fixed bearing TCS Size 2 15mm Tibial Insert Re f Start: 12-14-2018 Comment on above: Description: Ref 96-0512 Lot [id number] tivial insert Fixed bearing TCS Size 2 15mm Tibial Insert Re f Start: 12-14-2018 Comment on above: Description: Ref 96-0512 Lot [id number] tivial insert Fixed bearing TCS Size 2 15mm Tibial Insert Re f Start: 12-14-2018 Comment on above: Description: Ref 96-0512 Lot [id number] tivial insert Fixed bearing TCS Size 2 15mm Tibial Insert Re f Start: 12-14-2018 Comment on above: Description: Ref 96-0512 Lot [id number] tivial insert Fixed bearing TCS Size 2 15mm Tibial Insert Re f Start: 12-14-2018 Comment on above: Description: Ref 96-0512 Lot [id number] tivial insert Fixed bearing TCS Size 2 15mm Tibial Insert Re f Start: 12-14-2018 Comment on above: Description: Ref 96-0512 Lot [id number] tivial insert Fixed bearing TCS Size 2 15mm Tibial Insert Re f Start: 12-14-2018 Comment on above: Description: Ref 96-0512 Lot [id number] tivial insert Fixed bearing TCS Size 2 15mm Tibial Insert Re f Start: 12-14-2018 Comment on above: Description: Ref 96-0512 Lot [id number] tivial insert Fixed bearing TCS Size 2 15mm Tibial Insert Re f Start: 12-14-2018 Comment on above: Description: Ref 96-0512 Lot [id number] tivial insert Fixed bearing TCS Size 2 15mm Tibial Insert Re f Start: 12-14-2018 Comment on above: Description: Ref 96-0512 Lot [id number] tivial insert Fixed bearing TCS Size 2 15mm Tibial Insert Re Start: 12-14-2018 Comment on above: Description: Ref 96-0512 Lot [id number] tivial insert Fixed bearing TCS Size 2 15mm Tibial Insert Re f Start: 12-14-2018 Comment on above: Description: Ref 96-12 Lot [id number] tivial insert Fixed bearing TCS Size 2 15mm Tibial Insert Re Start: 12-14-2018 Comment on above: Description: Ref 96-0512 Lot [id number] tivial insert Fixed bearing TCS Size 2 15mm Tibial Insert Re Start: 12-14-2018 Comment on above: Description: Ref 96-0512 Lot [id number] tivial insert Fixed bearing TCS Size 2 15mm Tibial Insert Re Start: 12-14-2018 Comment on above: Description: Ref 96-0512 Lot [id number] tivial insert Fixed bearing TCS Size 2 15mm Tibial Insert Re Start: 12-14-2018 Comment on above: Description: Ref 96-0512 Lot [id number] tivial insert Fixed bearing TCS Size 2 15mm Tibial Insert Re Start: 12-14-2018 Comment on above: Description: Ref 96-0512 Lot [id number] tivial insert Fixed bearing TCS Size 2 15mm Tibial Insert Re Start: 12-14-2018 Comment on above: Description: Ref 96-0512 Lot [id number] tivial insert Fixed bearing TCS Size 2 15mm Tibial Insert Re Start: 12-14-2018 Comment on above: Description: Ref 96-0512 Lot [id number] tivial insert Fixed bearing TCS Size 2 15mm Tibial Insert Re Start: 12-14-2018 Comment on above: Description: Ref 96-0512 Lot [id number] tivial insert Fixed bearing TCS Size 2 15mm Tibial Insert Re Start: 12-14-2018 Comment on above: Description: Ref 96-0512 Lot [id number] tivial insert Fixed bearing TCS Size 2 15mm Tibial Insert Re f Start: 12-14-2018 Comment on above: Description: Ref 96-0512 Lot [id number] tivial insert Fixed bearing TCS Size 2 15mm Tibial Insert Re f Start: 12-14-2018 Comment on above: Description: Ref 96-0512 Lot [id number] tivial insert Fixed bearing TCS Size 2 15mm Tibial Insert Re f Start: 12-14-2018 Comment on above: Description: Ref 96-0512 Lot [id number] tivial insert Fixed bearing TCS Size 2 15mm Tibial Insert Re f Start: 12-14-2018 Comment on above: Description: Ref 96-0512 Lot [id number] tivial insert Fixed bearing TCS Size 2 15mm Tibial Insert Re Start: 12-14-2018 Comment on above: Description: Ref 96-0512 Lot [id number] tivial insert Fixed bearing TCS Size 2 15mm Tibial Insert Re Start: 12-14-2018 Comment on above: Description: Ref 96-0512 Lot [id number] tivial insert Fixed bearing TCS Size 2 15mm Tibial Insert Re 511 [id number] Start: 12-14-2018 Comment on above: Description: Ref Renuka- 0512 Lot [id number] tivial insert Fixed bearing TCS Size 2 15mm Tibial Insert Re Start: 12-14-2018 Comment on above: Description: Ref 96-0512 Lot [id number] tivial insert Fixed bearing TCS Size 2 15mm Tibial Insert Re Start: 12-14-2018 Comment on above: Description: Ref 96-0512 Lot [id number] tivial insert Fixed bearing TCS Size 2 15mm Goals Date Patient Goal Desired Activity /State Mental Status Date Assessment Result Facility 05-13-2025 Cognitive function Voice/Name [facility] Work Phone: Clinical Notes 12-22-2021 to 05-13-2025 Note Date & Type Note Facility 05-13-2025 Consult note [facility] 05-13-2025 History and physical note Note Date/Time May 13, 2025 12:16pm [facility] Medical Records Department [address] [place] [address] History & Physical Exam 05/13/25 1214 MR#: [id number] Acct: [id number] Name: AMNA SEQUEIRA Rep #:[id number] : 1955 70 From: Noe Wright DO PCP: Dr. Galindo Gutierrez MD Status:REG SD C Location: [place] [address] HPI - General General Date of Admission: 05/13/25 Date of Service: 05/13/25 Chief Complaint: Abdominal pain and nausea HPI Narrative AMNA SEQUEIRA, is a 70 F who presents for recurrent nausea and abdominal pain before eating. 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 She was treated with antibiotics and sent home without surgeries. Amna reports having to take 3 Dramamine to even think about food or she will get severely nauseous. She also reports early satiety and increased abdominal bloating with associated increase in belching and mild flatulence. Shestates that sucralfate suspension helps some but ondansetron does not really help that much. She denies difficulty chewing and swallowing, throat clearing, sinus drainage, reflux, vomiting, abdominal pain, constipation, hematochezia, and melena. She states the Reglan didn't do a damn bit of good and her stomachemptying test is this . She expresses concerns over being excessively fatigued and just wants someone to give her a B12 shot or something. Reviewed blood tests results with her and her daughter; normal amylase and lipase, elevated serum gastrin but she had recently completed antibiotics and is on PPI therapy. * GET 1hr * blood for pancreatic enzymes * metoclopramide 5mg PO QAC 30minutes before eating x2wks * office [facility] Medical History History of stress test Wears hearing aid Wears dentures Wears glasses Thyroid disease Walker as ambulation aid Ambulates with cane Rheumatoid arthritis Low iron DVT (deep venous thrombosis) Restless legs Gastric reflux Smoker History of echocardiogram Cardiology follow-up encounter Hypertension Rheumatoid arthritis in remission Pancreatic pseudocyst Severe protein-calorie malnutrition Perforated gastric ulcer Chronic kidney disease, stage 3 COPD (chronic obstructive pulmonary disease) Anxiety Epistaxis Chronic anticoagulation Altered mental status History of DVT (deep vein thrombosis) Asthma Fibromyalgia Anemia Osteoporosis GERD without esophagitis Insomnia Dysphagia Osteoarthritis Home Medications ?Medication ?Instructions ?Recorded ?Last Taken ?Type albuterol sulfate 90 mcg/actuation 1 puff inhalation D AILY 07/29/13 Unknown History aerosol inhaler (Ventolin HFA) fluticasone 500 mcg-salmeterol 50 1 puff inhalation .q d 07/29/13 Unknown History mcg/dose blistr powdr for inhalation (Advair Diskus) folic acid 1 mg tablet 1 mg PO DAILY@0800 07/29/13 Unknown History montelukast 10 mg tablet 10 mg PO DAILY 07/29/13 Unkn own History tiotropium bromide 18 mcg capsule 1 puff inhalation DA RAFIA 07/29/13 Unknown History with inhalation device (Spiriva with HandiHaler) warfarin 2.5 mg tablet (Jantoven) 2.5 mg PO QODAY 07/0205/10/25 History warfarin 5 mg tablet (Jantoven) 5 mg PO QODAY 07/29/13 05/09/25 History gabapentin 800 mg tablet 800 mg PO TID 07/28/24 Unkno wn History isosorbide mononitrate 30 mg 30 mg PO DAILY 07/28/24 U nknown History tablet,extended release 24 hr levothyroxine 175 mcg tablet 175 mcg PO DAILY 07/28/24 Unknown History oxycodone 10 mg tablet 10 mg PO Q4H PRN pain Unknown History potassium chloride 20 mEq 20 meq PO DAILY 07/28/24 Unk nown History tablet,extended release(part/cryst) (Klor-Con M) alprazolam 0.25 mg tablet 0.25 mg PO TID PRN anxiety 1 Unknown History melatonin 5 mg tablet 5 mg PO HS PRN sleep 4 Unknown History methocarbamol 750 mg tablet 500 mg PO Q6H PRN Anxiety 08/08/24 Unknown History (Robaxin-750) omeprazole 40 mg capsule,delayed 40 mg PO QDAY 4 Unknown History release ondansetron 4 mg disintegrating 4 mg PO Q6H 08/08/24 U nknown History tablet sucralfate 100 mg/mL oral 10 ml PO QACHS 08/08/24 Unkn own History suspension (Carafate) metoclopramide HCl 5 mg tablet 5 mg PO QAC #42 tabs Unknown Rx fluconazole 200 mg tablet 200 mg PO DAILY 05/12/25 Unk nown History (Diflucan) Lactobacillus acidophilus 2,000 mmu cells PO DAILY Unknown History (Acidophilus capsule) alendronate 5 mg tablet 7 mg PO DAILY 05/13/25 Unkno wn History prednisone 10 mg tablet 10 mg PO DAILY 05/13/25 Unkn own History Allergy/AdvReac Type Severity Reaction Status Date / Time Sulfa (Sulfonamide Allergy Hives AND Verified 05/12/25 08:43 Antibiotics) RESP DISTRESS amoxicillin (From Augmentin) AdvReac Other Verified 05/12/25 08:43 clavulanic acid (From AdvReac Other Verified 05/12/25 08:43 Augmentin) codeine AdvReac Itching Verified 05/12/25 08:43 nitrofurantoin AdvReac DECREASED Verified 05/12/25 08:43 (Nitrofurantoin) HEART RATE Family History Sister Breast cancer Diabetes Brother Liver cancer Diabetes Father Diabetes CVA (cerebral vascular accident) Surgical History History of cardiac catheterization History of tonsillectomy History of thyroidectomy History of right hip replacement History of total right knee replacement History of hysterectomy History of carpal tunnel surgery of right wrist Social History Smoking Status: Current every day smoker (Patient smoked today.) tobacco type: cigarettes alcohol intake: never ROS Constitutional Constitutional: Denies fatigue, fever(s), poor appetite, weight gain or weight loss Gastrointestinal Gastrointestinal: Denies belching, bloating, change in bowel habits, change in stool character, chewing difficulty, coffee ground emesis, constipation, cramping, diarrhea, dyspepsia, dysphagia, early satiety, excessive flatus, fecalincontinence, heartburn, hematemesis, hematochezia, hemorrhoids, loose stools, melena, nausea, odynophagia, rectal bleeding, tenesmus, vomiting or weight changes Vital Signs Vital Signs Vital Signs: 05/13/25 11:06 05/13/25 11:08 05/13/25 11:08 Temperature 98 F Temperature Source Temporal Pulse Rate 85 93 Respiratory Rate 20 H 19 H Respiratory Pattern Tachypnea Tachypnea Blood Pressure 134/85 H Blood Pressure Mean 101 Blood Pressure Source Monitor Blood Pressure Position Semi-Fowlers Blood Pressure Location Right Arm Pulse Ox 88 Oxygen Delivery Method Room Air 05/13/25 12:01 Temperature 98 F Temperature Source Pulse Rate 93 Respiratory Rate 19 H Respiratory Pattern Blood Pressure 134/85 H Blood Pressure Mean Blood Pressure Source Blood Pressure Position Blood Pressure Location Pulse Ox 88 Oxygen Delivery Method Room Air Weight Weight: 196 lb 3.382 oz Body Mass Index (BMI) 33.7 Physical Exam Const alert, oriented x3, no apparent distress and healthy appearing General Appearance: cooperative GI normal to inspection, nondistended, normoactive bowel sounds, soft to palpation,non-tender and non-distended Percussion: normal to percussion Rectal Exam: deferred Results Lab / Micro Data Labs: Laboratory Results - last 24 hr 05/13/25 10:32: POC PT 21.0 H, INR 1.9 05/13/25 10:35: PT 20.2 H, INR 1.7 Assessment & Plan Assessment/Plan (1) Early satiety: (2) Nausea: PLAN: Assessment and Plan Assessment and Plan (1) Early satiety: Status: Acute (2) Nausea: Status: Acute Plan AMNA SEQUEIRA, is a 69 F who [facility] and abdominal pain before eating. Discussed care plan with her and her daughter. Amna is agreeable to repeat endoscopy as long as she's Knocked completely out for it because she'll hurt somebody. * complete GET as scheduled * schedule EGD * ok to continue Dramamine * office FU 1wk after endoscopy 05/13/25 1216 <Electronically signed by Noe Wright DO> Cosigner Signature (if applicable): CC: Dr. Galindo Gutierrez MD; Noe Wright DO~ Signed [facility] Work Phone: [phone] 599-502507-15-2025 Consult note [facility] Note Date/Time May 13, 2025 12:0 4pm [facility] Medical Records Department [address] [place] [address] Pre-Anesthesia Evaluation 05/13/25 1154 MR#: [id number] Acct: [id number] Name: AMNA SEQUEIRA Rep #:[id number] : 1955 70 From: Doe Constantino MD PCP: Dr. Galindo Gutierrez MD Status:REG SD C Y Race: C Location: [place] [address] ASA Classification* ASA Classification ASA Classification: 4 Assessment & Plan Anesthesia* Anesthesia Assessment Anesthesia Assessment: Discussed sedation and/or anesthesia options, risks, benefits, and alternatives with patient/parents/legal guardian/POA. Questions invited. The patient/parents/legal guardian/POA seems to understand and agrees to proceedwith anesthesia plan. Reviewed the physical assessment, medical history, allergy history and patient home medications list prior to surgery/procedure/anesthetic and documented any changes. Performed airway and anesthesia risk assessments. Anesthesia Type Anesthesia Type: MAC (She will have to use a procedural mask for the endoscopy.) History Source History Obtained from:: Patient and Chart Anesthesia Focused Assessment* Temperature: 98 F Pulse Rate: 93 Blood Pressure: 134/85 Respiratory Rate: 19 Pulse Ox: 88 Oxygen Delivery Method: Room Air Airway Assessment Mouth opens: 2 cm Mallampati Score: IV Teeth Condition: Dentures (Patient has full upper and lower dentures. These will come out.) Neck Range of motion (ROM): Full ROM Labs Anesthesia Preop lab: CBC WBC 16.0 K/mm3 (4.4-11.0) H 07/28/24 16:17 4 RBC 4.99 M/mm3 (4.2-5.4) 07/28/24 16:17 07/28/24 Hgb 11.1 g/dL (12.0-15.0) L 07/28/24 16:17 4 Hct 39.0 % (37-47) 07/28/24 16:17 07/28/24 Plt Count 759 K/mm3 (150-450) H* 07/28/24 16:17 07/28/24 CHEMISTRY Potassium 3.6 mmol/L (3.5-5.1) 07/28/24 16:17 07/28/24 Sodium 136 mmol/L (136-145) 07/28/24 16:17 07/28/24 BUN 10 mg/dL (7-18) 07/28/24 16:17 07/28/24 Creatinine 0.75 mg/dL (0.55-1.02) 07/28/24 16:17 07/28/24 Glucose 97 mg/dL (74-106) 07/28/24 16:17 07/28/24 COAG PT 20.2 SECONDS (11.7-14.9) H 05/13/25 10:35 04/29 03/23 Pre-Assessment Diagnosis/Proposed Procedure Planned Operative Procedure(s): EGD Anesthesia History Anesthesia History - cupola patcher: Anesthesia History - cupola patcher Hx Hospitalization No 05/12/25 08:53 Any Problems With Anesthesia No 05/12/25 08:53 Cholinesterase deficiency No 05/12/25 08:53 You/Your Family Experience No 05/12/25 08:53 fever (hyperthermia) with Relationship Recent Exposure to Contagious No 05/13/25 11:08 Disease Does patient have nerve No 05/12/25 08:53 stimulator Patient instructed to have device shut off --Does patient have Pacemaker No 05/13/25 11:08 or ICD? When Was Last Pacemaker Check QUESTION #4 FULL TEXT: You/Your Family Experience fever (hyperthermia) with Anesthesia Last Oral Intake Last Oral intake: Last Oral Intake NPO since 00:00 05/13/25 11:08 Meds taken in AM with sips of water? Meds patient instructed to take am of surgery Any additional information?: Yes Meds taken in AM with sips of water?: Yes Meds patient instructed to take am of surgery: Oxycodone and gabapentin. PONV PONV - cupola patcher: PONV - cupola patcher Female Yes 05/12/25 08:53 HX of Motion Sickness No 05/12/25 08:53 HX of N/V After Surgery No 05/12/25 08:53 Non-Smoker No 05/12/25 08:53 Duration of Surgery greater No 05/12/25 08:53 than 60 minutes Number of Risk Factors 1 05/12/25 08:53 PONV Score Low Risk 05/12/25 08:53 Height & Weight Height & Weight: Anesthesia: Height & Weight Height 5 ft 4 in 05/13/25 11:08 Weight: 89 kg 05/13/25 11:08 Body Mass Index (BMI) 33.7 05/13/25 11:08 Respiratory Assessment Respiratory Assessment - cupola patcher: Respiratory Tract Infection Hx - cupola patcher Hx Respiratory Tract Infection No 05/12/25 08:53 STOP Sleep Apnea STOP Sleep Apnea - cupola patcher: STOP Sleep Apnea - cupola patcher Hx Hypertension No 05/12/25 08:53 Hx Sleep Apnea No 05/12/25 08:53 CPAP No 09/09/13 12:36 BIPAP No 09/09/13 10:29 Do you snore loudly (louder Yes 05/12/25 08:53 than talking or can be heard Do you often feel tired/ Yes 05/12/25 08:53 fatigued/ sleepy during daytime? Has anyone observed you stop Yes 05/12/25 08:53 breathing during sleep? STOP Results Positive 05/12/25 08:53 QUESTION #5 FULL TEXT : Do you snore loudly (louder than talking or can be heard through closed doors)? Tobacco Use History Tobacco Use History - cupola patcher: Tobacco Use History - cupola patcher Tobacco Use Smoking Status Current every day smoker 05/12/25 08:53 Hx Tobacco Use No 05/12/25 08:53 Years Smoking Packs Smoked per Day Smoking Cessation Date was within the last 15 years Hx Smoking Cessation Date Hx Smoking Cessation Counseling Any additional information?: Yes Smoking Status: Current every day smoker (Patient smoked today.) Hematologic Medial History Hematologic Hx - cupola patcher: Hematologic Medical Hx - weaver narrow fabrics Hx of Blood Transfusion No 05/12/25 08:53 Hx of Transfusion in last 3 No 05/12/25 08:53 Months Date of Last Transfusion (if within last 3 months) Ever experience any problems No 05/12/25 08:53 with transfusion(s)? Specify any problems Hx of Preganancy in last 3 No 05/12/25 08:53 Months Nurse Filling Out Transfusion [facility] 05/12/25 08:53 & Questions: Date: 05/12/25 05/12/25 08:53 Time: 09:06 05/12/25 08:53 Patient unable to answer at this time (ie. confused, unrespo /Reproduction History /Reproductive History - cupola patcher: /Reproductive Hx- cupola patcher Hx Now No 05/12/25 08:53 Gestational Age (in weeks): EDC: Hx Hx Para Hx Section SAB No 05/12/25 08:53 Active Medications Active Medications: Current Medications Generic Name Dose Route Start Last Admin Trade Name Freq PRN Reason Stop Dose Admin Lactated Ringer's 1,000 mls @ 15 mls/hr 05/13/25 10:45 IV .Q48H YARITZA PFSH Medical History History of stress test Wears hearing aid Wears dentures Wears glasses Thyroid disease Walker as ambulation aid Ambulates with cane Rheumatoid arthritis Low iron DVT (deep venous thrombosis) Restless legs Gastric reflux Smoker History of echocardiogram Cardiology follow-up encounter Hypertension Rheumatoid arthritis in remission Pancreatic pseudocyst Severe protein-calorie malnutrition Perforated gastric ulcer Chronic kidney disease, stage 3 COPD (chronic obstructive pulmonary disease) Anxiety Epistaxis Chronic anticoagulation Altered mental status History of DVT (deep vein thrombosis) Asthma Fibromyalgia Anemia Osteoporosis GERD without esophagitis Insomnia Dysphagia Osteoarthritis Home Medications ?Medication ?Instructions ?Recorded ?Last Taken ?Type albuterol sulfate 90 mcg/actuation 1 puff inhalation D AILY 07/29/13 Unknown History aerosol inhaler (Ventolin HFA) fluticasone 500 mcg-salmeterol 50 1 puff inhalation .q d 07/29/13 Unknown History mcg/dose blistr powdr for inhalation (Advair Diskus) folic acid 1 mg tablet 1 mg PO DAILY@0800 07/29/13 Unknown History montelukast 10 mg tablet 10 mg PO DAILY 07/29/13 Unkn own History tiotropium bromide 18 mcg capsule 1 puff inhalation DA RAFIA 07/29/13 Unknown History with inhalation device (Spiriva with HandiHaler) warfarin 2.5 mg tablet (Jantoven) 2.5 mg PO QODAY 07/0205/10/25 History warfarin 5 mg tablet (Jantoven) 5 mg PO QODAY 07/29/13 05/09/25 History gabapentin 800 mg tablet 800 mg PO TID 07/28/24 Unkno wn History isosorbide mononitrate 30 mg 30 mg PO DAILY 07/28/24 U nknown History tablet,extended release 24 hr levothyroxine 175 mcg tablet 175 mcg PO DAILY 07/28/24 Unknown History oxycodone 10 mg tablet 10 mg PO Q4H PRN pain Unknown History potassium chloride 20 mEq 20 meq PO DAILY 07/28/24 Unk nown History tablet,extended release(part/cryst) (Klor-Con M) alprazolam 0.25 mg tablet 0.25 mg PO TID PRN anxiety 1 Unknown History melatonin 5 mg tablet 5 mg PO HS PRN sleep 4 Unknown History methocarbamol 750 mg tablet 500 mg PO Q6H PRN Anxiety 08/08/24 Unknown History (Robaxin-750) omeprazole 40 mg capsule,delayed 40 mg PO QDAY 4 Unknown History release ondansetron 4 mg disintegrating 4 mg PO Q6H 08/08/24 U nknown History tablet sucralfate 100 mg/mL oral 10 ml PO QACHS 08/08/24 Unkn own History suspension (Carafate) metoclopramide HCl 5 mg tablet 5 mg PO QAC #42 tabs Unknown Rx fluconazole 200 mg tablet 200 mg PO DAILY 05/12/25 Unk nown History (Diflucan) Lactobacillus acidophilus 2,000 mmu cells PO DAILY Unknown History (Acidophilus capsule) alendronate 5 mg tablet 7 mg PO DAILY 05/13/25 Unkno wn History prednisone 10 mg tablet 10 mg PO DAILY 05/13/25 Unkn own History Allergy/AdvReac Type Severity Reaction Status Date / Time Sulfa (Sulfonamide Allergy Hives AND Verified 05/12/25 08:43 Antibiotics) RESP DISTRESS amoxicillin (From Augmentin) AdvReac Other Verified 05/12/25 08:43 clavulanic acid (From AdvReac Other Verified 05/12/25 08:43 Augmentin) codeine AdvReac Itching Verified 05/12/25 08:43 nitrofurantoin AdvReac DECREASED Verified 05/12/25 08:43 (Nitrofurantoin) HEART RATE Family History Sister Breast cancer Diabetes Brother Liver cancer Diabetes Father Diabetes CVA (cerebral vascular accident) Surgical History History of cardiac catheterization History of tonsillectomy History of thyroidectomy History of right hip replacement History of total right knee replacement History of hysterectomy History of carpal tunnel surgery of right wrist Social History Smoking Status: Current every day smoker (Patient smoked today.) tobacco type: cigarettes alcohol intake: never Review of Systems (Anesthesia) ROS Narrative System reviewed and no additional complaints, except as documented. 05/13/25 1204 <Electronically signed by Doe quiles MD> Date _ Doe Constantino MD Cosigner Signature: Date CC: ~ Signed [facility] Work Phone: 1(609) 527-159107-15-2025 Procedure note [facility] Medical Records Department [address] [place] [address] EGD Report MR#: [id number] Acct: [id number] Name: AMNA SEQUEIRA Rep #:[id number] : 1955 70 From: Noe Wrigth DO PCP: Dr. Galindo Gutierrez MD Status:REG SD C Patient Name: Amna Sequeira Procedure Date: 05/13/2025 12:37 PM Date of : 1955 Age: 70 Procedure: Upper GI endoscopy Indications: Epigastric abdominal pain, Functional Dyspepsia, Dyspepsia, Indigestion, Failure to respond to medical treatment Providers: Noe Wright DO Referring MD: Galindo Gutierrez Medicines: Monitored Anesthesia Care Patient Profile: This is a 70 year old female. Refer to note in patient chart for documentation of history and physical. Patient has symptoms of chronic abdominal cramping, chronic abdominal distention, chronic right upper quadrant abdominal pain, chronic epigastric abdominal pain, chronic dyspepsia and chronic nausea. Complications: No immediate complications. Procedure: Pre-Anesthesia Assessment: - Prior to the procedure, a History and Physical was performed, and patient medications and allergies were reviewed. The risks and benefits of the procedure and the sedation options and risks were discussed with the patient. All questions were answered and informed consent was obtained. Patient identification and proposed procedure were verified by the physician in the pre-procedure area. Mental Status Examination: alert and oriented. Airway Examination: normal oropharyngeal airway and neck mobility. Respiratory Examination: clear to auscultation. CV Examination: normal. Prophylactic Antibiotics: The patient does not require prophylactic antibiotics. Prior Anticoagulants: The patient has taken no anticoagulant or antiplatelet agents except for NSAID medication. ASA Grade Assessment: II - A patient with mild systemic disease. After reviewing the risks and benefits, the patient was deemed in satisfactory condition to undergo the procedure. The anesthesia plan was to use monitored anesthesia care (MAC). Immediately prior to administration of medications, the patient was re-assessed for adequacy to receive sedatives. The heart rate, respiratory rate, oxygen saturations, blood pressure, adequacy of pulmonary ventilation, and response to care were monitored throughout the procedure. The physical status of the patient was re-assessed after the procedure. After obtaining informed consent, the endoscope was passed under direct vision. Throughout the procedure, the patient's blood pressure, pulse, and oxygen saturations were monitored continuously. The Endoscope was introduced through the mouth, and advanced to the fourth part of the duodenum. Small bowel enteroscopy was deemed necessary. The upper GI endoscopy was accomplished without difficulty. The patient tolerated the procedure well. Scope In: 12:44:05 PM Scope Out: 12:49:35 PM Total Procedure Duration Time 0 hours 5 minutes 30 seconds Findings: The examined esophagus was normal. Patchy mild inflammation characterized by erythema was found in the entire examined stomach. Biopsies were taken with a cold forceps for histology. Verification of patient identification for the specimen was done. Estimated blood loss was minimal. Biopsies were taken with a cold forceps for Helicobacter pylori testing. Verification of patient identification for the specimen was done. Estimated blood loss was minimal. Suspect gastroparesis due to absence of peristalsis and patient symptoms. Patchy mildly erythematous mucosa without active bleeding and with no stigmata of bleeding was found in the entire duodenum. Biopsies were taken with a cold forceps for histology. Verification of patient identification for the specimen was done. Estimated blood loss was minimal. Impression: - Normal esophagus. - Chronic gastritis. Biopsied. - Gastroparesis. - Erythematous duodenopathy. Biopsied. Recommendation: - Discharge patient to home. - Resume previous diet. - Continue present medications. - Await pathology results. Procedure Code(s): --- Professional --- 89644, Small intestinal endoscopy, enteroscopy beyond second portion of duodenum, not including ileum; with biopsy, single or multiple CPT copyright 2021 [employer]. All rights reserved. The codes documented in this report are preliminary and upon workers compensation coordinator review may be revised to meet current compliance requirements. Noe Wright DO 05/13/2025 12:58:49 PM This report has been signed electronically. Number of Addenda: 0 Note Initiated On: 05/13/2025 12:37 PM 05/13/25 1258 Date _ Noe Wright DO Cosigner Signature: Date (if indicated) CC: Dr. Galindo Gutierrez MD; Noe Wright DO ~ Date Dictated: 05/13/25 1237 Date Transcribed: Hand Slitter: RF Signed [facility]-15-2025 Procedure note [facility] Medical Records Department [address] [place] [id number] Operative Report - CC Letter MR#: [id number] Acct: [id number] Name: AMNA SEQUEIRA Rep #:[id number] : 1955 70 From: Noe Wright DO PCP: Dr. Galindo Gutierrez MD Status:REG SD C 05/13/2025 Galindo Gutierrez Re : Upper GI endoscopy procedure for Amna Fabby Gutierrez This procedure was performed on Tuesday, May 13, 2025. My impressions and recommendations are as follows: Impressions : - Normal esophagus. - Chronic gastritis. Biopsied. - Gastroparesis. - Erythematous duodenopathy. Biopsied. Recommendations : - Discharge patient to home. - Resume previous diet. - Continue present medications. - Await pathology results. My findings are described in the full procedure note, which is enclosed. If I can be of further assistance, please feel free to contact me at . Sincerely, Noe Wright DO 05/13/2025 12:58:49 PM This report has been signed electronically. 05/13/25 1258 Date _ Noe Wright DO Cosigner Signature: Date (if indicated) CC: Dr. Galindo Gutierrez MD; Noe Wright DO ~ Date Dictated: 05/13/25 1237 Date Transcribed: Hand Slitter: RF Signed [facility]07-15-2025 History and physical note [facility] Medical Records Department [address] [facility] [address] [place] [address] History & Physical Exam 05/13/25 1214 MR#: [id number] Acct: [id number] Name: AMNA SEQUEIRA Rep #:[id number] : 1955 70 From: Noe Wright DO PCP: Dr. Galindo Gutierrez MD Status:REG SD C Location: [place] [address] HPI - General General Date of Admission: 05/13/25 Date of Service: 05/13/25 Chief Complaint: Abdominal pain and nausea HPI Narrative AMNA SEQUEIRA, is a 70 F who presents for recurrent nausea and abdominal pain before eating. 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 She was treated with antibiotics and sent home without surgeries. Amna reports having to take 3 Dramamine to even think about food or she will get severely nauseous. She also reports early satiety and increased abdominal bloating with associated increase in belching and mild flatulence. Shestates that sucralfate suspension helps some but ondansetron does not really help that much. She denies difficulty chewing and swallowing, throat clearing, sinus drainage, reflux, vomiting, abdominal pain, constipation, hematochezia, and melena. Shestates the Reglan didn't do a damn bit of good and her stomachemptying test is this . Sheexpresses concerns over being excessively fatigued and just wants someone to give her a B12 shot or something. Reviewed blood tests results with her and her daughter; normal amylase and lipase, elevated serum gastrin but she had recently completed antibiotics and is on PPI therapy. * GET 1hr * blood for pancreatic enzymes * metoclopramide 5mg PO QAC 30minutes before eating x2wks * office FU [facility] Medical History History of stress test Wears hearing aid Wears dentures Wears glasses Thyroid disease Walker as ambulation aid Ambulates with cane Rheumatoid arthritis Low iron DVT (deep venous thrombosis) Restless legs Gastric reflux Smoker History of echocardiogram Cardiology follow-up encounter Hypertension Rheumatoid arthritis in remission Pancreatic pseudocyst Severe protein-calorie malnutrition Perforated gastric ulcer Chronic kidney disease, stage 3 COPD (chronic obstructive pulmonary disease) Anxiety Epistaxis Chronic anticoagulation Altered mental status History of DVT (deep vein thrombosis) Asthma Fibromyalgia Anemia Osteoporosis GERD without esophagitis Insomnia Dysphagia Osteoarthritis Home Medications ?Medication ?Instructions ?Recorded ?Last Taken ?Type albuterol sulfate 90 mcg/actuation 1 puff inhalation D AILY 07/29/13 Unknown History aerosol inhaler (Ventolin HFA) fluticasone 500 mcg-salmeterol 50 1 puff inhalation .q d 07/29/13 Unknown History mcg/dose blistr powdr for inhalation (Advair Diskus) folic acid 1 mg tablet 1 mg PO DAILY@0800 07/29/13 Unknown History montelukast 10 mg tablet 10 mg PO DAILY 07/29/13 Unkn own History tiotropium bromide 18 mcg capsule 1 puff inhalation DA RAFIA 07/29/13 Unknown History with inhalation device (Spiriva with HandiHaler) warfarin 2.5 mg tablet (Jantoven) 2.5 mg PO QODAY 07/0205/10/25 History warfarin 5 mg tablet (Jantoven) 5 mg PO QODAY 07/29/13 05/09/25 History gabapentin 800 mg tablet 800 mg PO TID 07/28/24 Unkno wn History isosorbide mononitrate 30 mg 30 mg PO DAILY 07/28/24 U nknown History tablet,extended release 24 hr levothyroxine 175 mcg tablet 175 mcg PO DAILY 07/28/24 Unknown History oxycodone 10 mg tablet 10 mg PO Q4H PRN pain Unknown History potassium chloride 20 mEq 20 meq PO DAILY 07/28/24 Unk nown History tablet,extended release(part/cryst) (Klor-Con M) alprazolam 0.25 mg tablet 0.25 mg PO TID PRN anxiety 1 Unknown History melatonin 5 mg tablet 5 mg PO HS PRN sleep 4 Unknown History methocarbamol 750 mg tablet 500 mg PO Q6H PRN Anxiety 08/08/24 Unknown History (Robaxin-750) omeprazole 40 mg capsule,delayed 40 mg PO QDAY 4 Unknown History release ondansetron 4 mg disintegrating 4 mg PO Q6H 08/08/24 U nknown History tablet sucralfate 100 mg/mL oral 10 ml PO QACHS 08/08/24 Unkn own History suspension (Carafate) metoclopramide HCl 5 mg tablet 5 mg PO QAC #42 tabs Unknown Rx fluconazole 200 mg tablet 200 mg PO DAILY 05/12/25 Unk nown History (Diflucan) Lactobacillus acidophilus 2,000 mmu cells PO DAILY Unknown History (Acidophilus capsule) alendronate 5 mg tablet 7 mg PO DAILY 05/13/25 Unkno wn History prednisone 10 mg tablet 10 mg PO DAILY 05/13/25 Unkn own History Allergy/AdvReac Type Severity Reaction Status Date / Time Sulfa (Sulfonamide Allergy Hives AND Verified 05/12/25 08:43 Antibiotics) RESP DISTRESS amoxicillin (From Augmentin) AdvReac Other Verified 05/12/25 08:43 clavulanic acid (From AdvReac Other Verified 05/12/25 08:43 Augmentin) codeine AdvReac Itching Verified 05/12/25 08:43 nitrofurantoin AdvReac DECREASED Verified 05/12/25 08:43 (Nitrofurantoin) HEART RATE Family History Sister Breast cancer Diabetes Brother Liver cancer Diabetes Father Diabetes CVA (cerebral vascular accident) Surgical History History of cardiac catheterization History of tonsillectomy History of thyroidectomy History of right hip replacement History of total right knee replacement History of hysterectomy History of carpal tunnel surgery of right wrist Social History Smoking Status: Current every day smoker (Patient smoked today.) tobacco type: cigarettes alcohol intake: never ROS Constitutional Constitutional: Denies fatigue, fever(s), poor appetite, weight gain or weight loss Gastrointestinal Gastrointestinal: Denies belching, bloating, change in bowel habits, change in stool character, chewing difficulty, coffee ground emesis, constipation, cramping, diarrhea, dyspepsia, dysphagia, earlysatiety, excessive flatus, fecalincontinence, heartburn, hematemesis, hematochezia, hemorrhoids, loose stools, melena, nausea, odynophagia, rectal bleeding, tenesmus, vomiting or weight changes Vital Signs Vital Signs Vital Signs: 05/13/25 11:06 05/13/25 11:08 05/13/25 11:08 Temperature 98 F Temperature Source Temporal Pulse Rate 85 93 Respiratory Rate 20 H 19 H Respiratory Pattern Tachypnea Tachypnea Blood Pressure 134/85 H Blood Pressure Mean 101 Blood Pressure Source Monitor Blood Pressure Position Semi-Fowlers Blood Pressure Location Right Arm Pulse Ox 88 Oxygen Delivery Method Room Air 05/13/25 12:01 Temperature 98 F Temperature Source Pulse Rate 93 Respiratory Rate 19 H Respiratory Pattern Blood Pressure 134/85 H Blood Pressure Mean Blood Pressure Source Blood Pressure Position Blood Pressure Location Pulse Ox 88 Oxygen Delivery Method Room Air Weight Weight: 196 lb 3.382 oz Body Mass Index (BMI) 33.7 Physical Exam Const alert, oriented x3, no apparent distress and healthy appearing General Appearance: cooperative GI normal to inspection, nondistended, normoactive bowel sounds, soft to palpation,non-tender and non-distended Percussion: normal to percussion Rectal Exam: deferred Results Lab / Micro Data Labs: Laboratory Results - last 24 hr 05/13/25 10:32: POC PT 21.0 H, INR 1.9 05/13/25 10:35: PT 20.2 H, INR 1.7 Assessment & Plan Assessment/Plan (1) Early satiety: (2) Nausea: PLAN: Assessment and Plan Assessment and Plan (1) Early satiety: Status: Acute (2) Nausea: Status: Acute Plan AMNA SEQUEIRA, is a 69 F who [facility] and abdominal pain before eating. Discussed care plan with her and her daughter. Amna is agreeable to repeat endoscopy as long as she's Knocked completely out for it because she'll hurt somebody. * complete GET as scheduled * schedule EGD * ok to continue Dramamine * office FU 1wk after endoscopy 05/13/25 1216 Cosigner Signature (if applicable): CC: Dr. Galindo Gutierrez MD; Noe Wright DO~ Signed [facility]07-15-2025 [facility] Medical Records Department [address] [place] [id number] History Physical Exam 05/13/25 1214 MR#: [id number] Acct: [id number] Name: AMNA SEQUEIRA Rep #: [id number] : 1955 70 From: Noe Wright DO PCP: Dr. Galindo Gutierrez MD Status:[facility] Location: [place] [address] HPI - General General Date of Admission: 05/13/25 Date of Service: 05/13/25 Chief Complaint: Abdominal pain and nausea HPI Narrative AMNA SEQUEIRA, is a 70 F who presents for recurrent nausea and abdominal pain before eating. 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 She was treated with antibiotics and sent home without surgeries. Amna reports having to take 3 Dramamine to even think about food or she will get severely nauseous. She also reports early satiety and increased abdominal bloating with associated increase in belching and mild flatulence. She states that sucralfate suspension helps some but ondansetron does not really help that much. She denies difficulty chewing and swallowing, throat clearing, sinus drainage, reflux, vomiting, abdominal pain, constipation, hematochezia, and melena. She states the Reglan didn't do a damn bit of good and her stomach emptying test is this . She expresses concerns over being excessively fatigued and just wants someone to give her a B12 shot or something. Reviewed blood tests results with her and her daughter; normal amylase and lipase, elevated serum gastrin but she had recently completed antibiotics and is on PPI therapy. * GET 1hr * blood for pancreatic enzymes * metoclopramide 5mg PO QAC 30minutes before eating x2wks * office FU [facility] Medical History History of stress test Wears hearing aid Wears dentures Wears glasses Thyroid disease Walker as ambulation aid Ambulates with cane Rheumatoid arthritis Low iron DVT (deep venous thrombosis) Restless legs Gastric reflux Smoker History of echocardiogram Cardiology follow-up encounter Hypertension Rheumatoid arthritis in remission Pancreatic pseudocyst Severe protein-calorie malnutrition Perforated gastric ulcer Chronic kidney disease, stage 3 COPD (chronic obstructive pulmonary disease) Anxiety Epistaxis Chronic anticoagulation Altered mental status History of DVT (deep vein thrombosis) Asthma Fibromyalgia Anemia Osteoporosis GERD without esophagitis Insomnia Dysphagia Osteoarthritis Home Medications ???Medication ???Instructions ???Recorded ???Last Taken ???Type albuterol sulfate 90 mcg/actuation 1 puff inhalation DAILY 07/29/13 Unknown History aerosol inhaler (Ventolin HFA) fluticasone 500 mcg-salmeterol 50 1 puff inhalation .qd 07/29/13 Un known History mcg/dose blistr powdr for inhalation (Advair Diskus) folic acid 1 mg tablet 1 mg PO DAILY@0800 07/29/13 Unknow n History montelukast 10 mg tablet 10 mg PO DAILY 07/29/13 Unknown Hi story tiotropium bromide 18 mcg capsule 1 puff inhalation DAILY 07/29/13 Unknown History with inhalation device (Spiriva with HandiHaler) warfarin 2.5 mg tablet (Jantoven) 2.5 mg PO QODAY 07/29/13 05/10/25 History warfarin 5 mg tablet (Jantoven) 5 mg PO QODAY 07/29/13 05/09/25 Hi story gabapentin 800 mg tablet 800 mg PO TID 07/28/24 Unknown His tory isosorbide mononitrate 30 mg 30 mg PO DAILY 07/28/24 Unknown Hi story tablet,extended release 24 hr levothyroxine 175 mcg tablet 175 mcg PO DAILY 07/28/24 Unknown History oxycodone 10 mg tablet 10 mg PO Q4H PRN pain 07/28/24 Unk nown History potassium chloride 20 mEq 20 meq PO DAILY 07/28/24 Unknown H istory tablet,extended release(part/cryst) (Klor-Con M) alprazolam 0.25 mg tablet 0.25 mg PO TID PRN anxiety 4 Unknown History melatonin 5 mg tablet 5 mg PO HS PRN sleep 08/08/24 Unkn own History methocarbamol 750 mg tablet 500 mg PO Q6H PRN Anxiety 08/08/24 Unknown History (Robaxin-750) omeprazole 40 mg capsule,delayed 40 mg PO QDAY 08/08/24 Unknown His tory release ondansetron 4 mg disintegrating 4 mg PO Q6H 08/08/24 Unknown Histo ry tablet sucralfate 100 mg/mL oral 10 ml PO QACHS 08/08/24 Unknown Hi story suspension (Carafate) metoclopramide HCl 5 mg tablet 5 mg PO QAC #42 tabs 03/04/25 Unkn own Rx fluconazole 200 mg tablet 200 mg PO DAILY 05/12/25 Unknown H istory (Diflucan) Lactobacillus acidophilus 2,000 mmu cells PO DAILY 05/13/25 Unknown History (Acidophilus capsule) alendronate 5 mg tablet 7 mg PO DAILY 05/13/25 Unknown His tory prednisone 10 mg tablet 10 mg PO DAILY 05/13/25 Unknown Hi story Allergy/AdvReac Type Severity Reaction Status Date / Time Sul (more content not included)...[facility]07-15-2025 Consult note [facility] Medical Records Department [address] [place] [address] Pre-Anesthesia Evaluation 05/13/25 1154 MR#: [id number] Acct: [id number] Name: AMNA SEQUEIRA Rep #:[id number] : 1955 70 From: Doe Constantino MD PCP: Dr. Galindo Gutierrez MD Status:REG SD C Y Race: C Location: [place] [address]- ASA Classification* ASA Classification ASA Classification: 4 Assessment & Plan Anesthesia* Anesthesia Assessment Anesthesia Assessment: Discussed sedation and/or anesthesia options, risks, benefits, and alternatives with patient/parents/legal guardian/POA. Questions invited. The patient/parents/legal guardian/POA seems to understand and agrees to proceedwith anesthesia plan. Reviewed the physical assessment, medical history, allergy history and patient home medications list prior to surgery/procedure/anesthetic and documented any changes. Performed airway and anesthesia risk assessments. Anesthesia Type Anesthesia Type: MAC (She will have to use a procedural mask for the endoscopy.) History Source History Obtained from:: Patient and Chart Anesthesia Focused Assessment* Temperature: 98 F Pulse Rate: 93 Blood Pressure: 134/85 Respiratory Rate: 19 Pulse Ox: 88 Oxygen Delivery Method: Room Air Airway Assessment Mouth opens: 2 cm Mallampati Score: IV Teeth Condition: Dentures (Patient has full upper and lower dentures. These will come out.) Neck Range of motion (ROM): Full ROM Labs Anesthesia Preop lab: CBC WBC 16.0 K/mm3 (4.4-11.0) H 07/28/24 16:17 4 RBC 4.99 M/mm3 (4.2-5.4) 07/28/24 16:17 07/28/24 Hgb 11.1 g/dL (12.0-15.0) L 07/28/24 16:17 4 Hct 39.0 % (37-47) 07/28/24 16:17 07/28/24 Plt Count 759 K/mm3 (150-450) H* 07/28/24 16:17 07/28/24 CHEMISTRY Potassium 3.6 mmol/L (3.5-5.1) 07/28/24 16:17 07/28/24 Sodium 136 mmol/L (136-145) 07/28/24 16:17 07/28/24 BUN 10 mg/dL (7-18) 07/28/24 16:17 07/28/24 Creatinine 0.75 mg/dL (0.55-1.02) 07/28/24 16:17 07/28/24 Glucose 97 mg/dL (74-106) 07/28/24 16:17 07/28/24 COAG PT 20.2 SECONDS (11.7-14.9) H 05/13/25 10:35 04/29 03/23 Pre-Assessment Diagnosis/Proposed Procedure Planned Operative Procedure(s): EGD Anesthesia History Anesthesia History - cupola patcher: Anesthesia History - cupola patcher Hx Hospitalization No 05/12/25 08:53 Any Problems With Anesthesia No 05/12/25 08:53 Cholinesterase deficiency No 05/12/25 08:53 You/Your Family Experience No 05/12/25 08:53 fever (hyperthermia) with Relationship Recent Exposure to Contagious No 05/13/25 11:08 Disease Does patient have nerve No 05/12/25 08:53 stimulator Patient instructed to have device shut off --Does patient have Pacemaker No 05/13/25 11:08 or ICD? When Was Last Pacemaker Check QUESTION #4 FULL TEXT: You/Your Family Experience fever (hyperthermia) with Anesthesia Last Oral Intake Last Oral intake: Last Oral Intake NPO since 00:00 05/13/25 11:08 Meds taken in AM with sips of water? Meds patient instructed to take am of surgery Any additional information?: Yes Meds taken in AM with sips of water?: Yes Meds patient instructed to take am of surgery: Oxycodone and gabapentin. PONV PONV - cupola patcher: PONV - cupola patcher Female Yes 05/12/25 08:53 HX of Motion Sickness No 05/12/25 08:53 HX of N/V After Surgery No 05/12/25 08:53 Non-Smoker No 05/12/25 08:53 Duration of Surgery greater No 05/12/25 08:53 than 60 minutes Number of Risk Factors 1 05/12/25 08:53 PONV Score Low Risk 05/12/25 08:53 Height & Weight Height & Weight: Anesthesia: Height & Weight Height 5 ft 4 in 05/13/25 11:08 Weight: 89 kg 05/13/25 11:08 Body Mass Index (BMI) 33.7 05/13/25 11:08 Respiratory Assessment Respiratory Assessment - cupola patcher: Respiratory Tract Infection Hx - cupola patcher Hx Respiratory Tract Infection No 05/12/25 08:53 STOP Sleep Apnea STOP Sleep Apnea - cupola patcher: STOP Sleep Apnea - cupola patcher Hx Hypertension No 05/12/25 08:53 Hx Sleep Apnea No 05/12/25 08:53 CPAP No 09/09/13 12:36 BIPAP No 09/09/13 10:29 Do you snore loudly (louder Yes 05/12/25 08:53 than talking or can be heard Do you often feel tired/ Yes 05/12/25 08:53 fatigued/ sleepy during daytime? Has anyone observed you stop Yes 05/12/25 08:53 breathing during sleep? STOP Results Positive 05/12/25 08:53 QUESTION #5 FULL TEXT : Do you snore loudly (louder than talking or can be heard through closeddoors)? Tobacco Use History Tobacco Use History - cupola patcher: Tobacco Use History - cupola patcher Tobacco Use Smoking Status Current every day smoker 05/12/25 08:53 Hx Tobacco Use No 05/12/25 08:53 Years Smoking Packs Smoked per Day Smoking Cessation Date was within the last 15 years Hx Smoking Cessation Date Hx Smoking Cessation Counseling Any additional information?: Yes Smoking Status: Current every day smoker (Patient smoked today.) Hematologic Medial History Hematologic Hx - cupola patcher: Hematologic Medical Hx - weaver narrow fabrics Hx of Blood Transfusion No 05/12/25 08:53 Hx of Transfusion in last 3 No 05/12/25 08:53 Months Date of Last Transfusion (if within last 3 months) Ever experience any problems No 05/12/25 08:53 with transfusion(s)? Specify any problems Hx of Preganancy in last 3 No 05/12/25 08:53 Months Nurse Filling Out Transfusion [facility] 05/12/25 08:53 & Questions: Date: 05/12/25 05/12/25 08:53 Time: 09:06 05/12/25 08:53 Patient unable to answer at this time (ie. confused, unrespo /Reproduction History /Reproductive History - cupola patcher: /Reproductive Hx- cupola patcher Hx Now No 05/12/25 08:53 Gestational Age (in weeks): EDC: Hx Hx Para Hx Section SAB No 05/12/25 08:53 Active Medications Active Medications: Current Medications Generic Name Dose Route Start Last Admin Trade Name Freq PRN Reason Stop Dose Admin Lactated Ringer's 1,000 mls @ 15 mls/hr 05/13/25 10:45 [facility] History History of stress test Wears hearing aid Wears dentures Wears glasses Thyroid disease Walker as ambulation aid Ambulates with cane Rheumatoid arthritis Low iron DVT (deep venous thrombosis) Restless legs Gastric reflux Smoker History of echocardiogram Cardiology follow-up encounter Hypertension Rheumatoid arthritis in remission Pancreatic pseudocyst Severe protein-calorie malnutrition Perforated gastric ulcer Chronic kidney disease, stage 3 COPD (chronic obstructive pulmonary disease) Anxiety Epistaxis Chronic anticoagulation Altered mental status History of DVT (deep vein thrombosis) Asthma Fibromyalgia Anemia Osteoporosis GERD without esophagitis Insomnia Dysphagia Osteoarthritis Home Medications ?Medication ?Instructions ?Recorded ?Last Taken ?Type albuterol sulfate 90 mcg/actuation 1 puff inhalation D AILY 07/29/13 Unknown History aerosol inhaler (Ventolin HFA) fluticasone 500 mcg-salmeterol 50 1 puff inhalation .q d 07/29/13 Unknown History mcg/dose blistr powdr for inhalation (Advair Diskus) folic acid 1 mg tablet 1 mg PO DAILY@0800 07/29/13 Unknown History montelukast 10 mg tablet 10 mg PO DAILY 07/29/13 Unkn own History tiotropium bromide 18 mcg capsule 1 puff inhalation DA RAFIA 07/29/13 Unknown History with inhalation device (Spiriva with HandiHaler) warfarin 2.5 mg tablet (Jantoven) 2.5 mg PO QODAY 07/02 005/10/25 History warfarin 5 mg tablet (Jantoven) 5 mg PO QODAY 07/29/13 05/09/25 History gabapentin 800 mg tablet 800 mg PO TID 07/28/24 Unkno wn History isosorbide mononitrate 30 mg 30 mg PO DAILY 07/28/24 U nknown History tablet,extended release 24 hr levothyroxine 175 mcg tablet 175 mcg PO DAILY 07/28/24 Unknown History oxycodone 10 mg tablet 10 mg PO Q4H PRN pain Unknown History potassium chloride 20 mEq 20 meq PO DAILY 07/28/24 Unk nown History tablet,extended release(part/cryst) (Klor-Con M) alprazolam 0.25 mg tablet 0.25 mg PO TID PRN anxiety 1 Unknown History melatonin 5 mg tablet 5 mg PO HS PRN sleep 4 Unknown History methocarbamol 750 mg tablet 500 mg PO Q6H PRN Anxiety 08/08/24 Unknown History (Robaxin-750) omeprazole 40 mg capsule,delayed 40 mg PO QDAY 4 Unknown History release ondansetron 4 mg disintegrating 4 mg PO Q6H 08/08/24 U nknown History tablet sucralfate 100 mg/mL oral 10 ml PO QACHS 08/08/24 Unkn own History suspension (Carafate) metoclopramide HCl 5 mg tablet 5 mg PO QAC #42 tabs Unknown Rx fluconazole 200 mg tablet 200 mg PO DAILY 05/12/25 Unk nown History (Diflucan) Lactobacillus acidophilus 2,000 mmu cells PO DAILY Unknown History (Acidophilus capsule) alendronate 5 mg tablet 7 mg PO DAILY 05/13/25 Unkno wn History prednisone 10 mg tablet 10 mg PO DAILY 05/13/25 Unkn own History Allergy/AdvReac Type Severity Reaction Status Date / Time Sulfa (Sulfonamide Allergy Hives AND Verified 05/12/25 08:43 Antibiotics) RESP DISTRESS amoxicillin (From Augmentin) AdvReac Other Verified 05/12/25 08:43 clavulanic acid (From AdvReac Other Verified 05/12/25 08:43 Augmentin) codeine AdvReac Itching Verified 05/12/25 08:43 nitrofurantoin AdvReac DECREASED Verified 05/12/25 08:43 (Nitrofurantoin) HEART RATE Family History Sister Breast cancer Diabetes Brother Liver cancer Diabetes Father Diabetes CVA (cerebral vascular accident) Surgical History History of cardiac catheterization History of tonsillectomy History of thyroidectomy History of right hip replacement History of total right knee replacement History of hysterectomy History of carpal tunnel surgery of right wrist Social History Smoking Status: Current every day smoker (Patient smoked today.) tobacco type: cigarettes alcohol intake: never Review of Systems (Anesthesia) ROS Narrative System reviewed and no additional complaints, except as documented. 05/13/25 1204 etta LOVE> Date _ Doe Constantino MD Cosigner Signature: Date CC: ~ Signed [facility]05-22-2025 Nuclear medicine Diagnostic study note [facility] Imaging Services [address] [address] Gastric Emptying Study MR#: [id number] Acct: [id number] Name: AMNA SEQUEIRA Rep #: [id number] : 1955 F 69 From: Yimi Coto MD PCP: Dr. Galindo Gutierrez MD Status: REG CL I Study:Gastric Emptying Study Date of Exam: 03/20/25 Exam# [id number] Ordering Dr: Hakan Barkley PROCEDURE: GASTRIC EMPTYING STUDY 03/20/2025 REASON FOR EXAM: FREQUENT NAUSEA COMPARISON: None TECHNIQUE: The patient ingested a standard meal of cooked egg whites mixed with , oatmeal, toasted white bread, jelly, and water. There was no vomiting postprandially. Anterior and posterior planar images of the upper abdomen were obtained for 1 minute immediately following the meal at 1h, 2h and 4h if more than 10% of the activity persisted within the stomach. Regions of interest were drawn, and a geometric mean was used to calculate a [id number]. RADIOPHARMACEUTICAL: Sulfur colloid DOSE 1.2mCi FINDINGS: Percent activity remaining in stomach: 1 hour 62% % (normal 37-90%) NM/Gastric Emptying Study IMPRESSION: Normal gastric emptying examination. Reading Location: [place] [address] CC: MAGI Barkley; Dr. Galindo Gutierrez MD ~ Hand Slitter: Signed [facility]2025 Evaluation note* Diagnosis Onset Date Resolution Status Admit Date Early satiety acute March 04 9:33am Nausea acute March 04, 2025 9:33am Pancreatic insufficiency acute March 04, 2025 9:33am [facility] Work Phone: 1(286) 583-365705-06-2025 Evaluation note* Diagnosis Onset Date Resolution Status Admit Date Early satiety acute March 04 9:33am Nausea acute March 04, 2025 9:33am Pancreatic insufficiency acute March 04, 2025 9:33am Early satiety acute March 18, 2 025 9:04am Nausea acute March 18, 2025 9:04am [facility] Work Phone: 1(488) 983-262705-06-2025 Evaluation note* Diagnosis Onset Date Resolution Status Admit Date Early satiety acute March 04 9:33am Nausea acute March 04, 2025 9:33am Pancreatic insufficiency acute March 04, 2025 9:33am Early satiety acute March 18, 2 025 9:04am Nausea acute March 18, 2025 9:04am Early satiety acute May 13, 2025 10:24am Nausea acute May 13 10:24am [facility] Work Phone: 1(242) 869-825101-20-2025 Note* Addendum Note - Billie Joseph PA-C - 11/18/2024 3:08 PM ESTAddended by: BILLIE JOSEPH on: 11/18/2024 03:08 PM Modules accepted: Orders [facility]01-20-2025 Miscellaneous Notes* Addendum Note - Billie Joseph PA-C - 11/18/2024 3:08 PM ESTAddended by: BILLIE JOSEPH on: 11/18/2024 03:08 PM Modules accepted: [facility] NoteHNO ID: [id number] Author: BILLIE JOSEPH PA-C Service: ? Author Type: Physician Securities Analyst Type: Progress Notes Filed: 11/18/2024 15:07 Note Text: Billie Joseph PA-C Surgical Oncology [address] [facility], [address] [place] [id number] VIRTUAL VISIT PROGRESS NOTE This is a virtual visit using Quackom Video Visit. It required patient-provider interaction for the medical decision making as documented below. I have communicated my name and active licensure. The patient's identity and physical location were verified at the time of this visit. Either the patient or their legal automotive sales representative has been informed of the risks and benefits of -- and alternatives to -- treatment through a remote evaluation and consents to proceed with the evaluation remotely. Amna Sequeira is a 69 year old female here for a 3 month follow up. The patient had been seen previously for an indeterminate liver lesion found during workup for gastric perforation. The patient reports ongoing nausea and vomiting. She states this occurs every few months for the past year. She has not followed up with GI on an outpatient basis, but did have an EGD as an inpatient. No fever/chills. No jaundice. She was previously told to continue PPI/carafate. Also was told to avoid NSAIDS, smoking, and prednisone. PAST MEDICAL HISTORY Diagnosis Date Acid reflux Anxiety Chronic pain back,hips, and knees COPD (chronic obstructive pulmonary disease) (HCC) DVT (deep venous thrombosis) (HCC) 10/30/2005 IBS (irritable bowel syndrome) Insomnia RA (rheumatoid arthritis) (HCC) Thyroid disease PAST SURGICAL HISTORY Procedure Laterality Date CARPAL TUNNEL 2003 right COLONOSCOPY 2007 HYSTERECTOMY HX 1992 PAST SURGICAL HISTORY OF 01/2013 Rt total knee replacement PAST SURGICAL HISTORY OF 2011 Rt hip placement THYROIDECTOMY TOTAL/COMPLETE 09/09/13 TONSILLECTOMY HX Social History Tobacco Use Smoking status: Every Day Current packs/day: 1.00 Average packs/day: 1 pack/day for 20.0 years (20.0 ttl pk-yrs) Types: Cigarettes Vaping Use Vaping status: Never Used Substance Use Topics Alcohol use: No Drug use: Never FAMILY HISTORY Problem Relation Age of Onset Cancer Brother liver Diabetes Father Diabetes Sister Diabetes Brother Heart Maternal Grandmother Stroke Father The ROS, medical, surgical, family, and social history were reviewed by Billie Joseph PA-C ALLERGIES Allergen Reactions Bactrim [Sulfametho* Rash Macrobid [Nitrofura* Other: See Comments Decreased heart rate Sulfa (Sulfonamide * Hives Current Outpatient Medications Medication Sig iv contrast (will be provided with radiology test) CT PANCREAS W Inject, intravenously, once for 1 dose.No IV access, insert saline lock prior to the beginning of sedation, infusion, injection of imaging exam. Discontinue saline lock post exam. If Pt. has a central line or IVAD, may access for administration according to line specific nursing protocol. Once exam is complete flush line and de-access according to line specific nursing protocol in the CT contrast administration guidelines link. tofacitinib (XELJANZ) 5 mg tab Take by mouth twice daily. Sodium,Potassium,ANDMag Sulfates (SUPREP) 17.5-3.13-1.6 gram solr Take according to printed instructions given by office. fentaNYL (DURAGESIC) 75 mcg/hr Apply 1 Patch as directed every 72 hours. levothyroxine 175 mcg tablet Take 175 mcg by mouth daily before breakfast. GABAPENTIN 300 mg capsule twice daily. tiotropium 18 mcg INHALATION inhalation capsule Inhale 1 capsule as instructed once daily. fluticasone-salmeterol (ADVAIR DISKUS) 100-50 mcg/dose INHALATION DsDv Inhale 1 Puff as instructed twice daily. RINSE AND GARGLE MOUTH WITH WATER AFTER EACH USE. albuterol 90 mcg/Actuation INHALATION Aero Inhale 2 Puffs as instructed four times daily as needed. FOR WHEEZING AND SHORTNESS OF BREATH. Methotrexate Sodium (METHOTREXATE, ANTI-RHEUMATIC,) 2.5 mg ORAL tablet Take 3 tablets by mouth once each week. hydroxychloroquine (PLAQUENIL) 200 mg ORAL tablet Take by mouth once daily. folic acid 1 mg ORAL tablet Take 1 tablet by mouth once daily. omeprazole (PRILOSEC) 20 mg ORAL capsule Take 1 capsule by mouth once daily. montelukast (SINGULAIR) 10 mg ORAL tablet Take 1 tablet by mouth daily at bedtime. sertraline (ZOLOFT) 50 mg ORAL tablet Take 1 tablet by mouth three times daily. zolpidem (AMBIEN) 10 mg ORAL Tab Take 1 tablet by mouth at bedtime as needed. FOR INSOMNIA methocarbamol 750 mg ORAL tablet Take 1 tablet by mouth twice daily. warfarin (COUMADIN) 5 mg ORAL tablet Take 1 tablet by mouth. Twice per week warfarin 2.5 mg ORAL tablet Take 1 tablet by mouth. Take 1 tablet 5 times per week No current facility-administered medications for this visit. OBJECTIVE VIDEO EXAM: (if completed, performed via video enabled technology) GENERAL: alert and appropri (more content not included)...[facility]01-16-2025 History of Present illness Narrative* Billie Joseph PA-C - 11/14/2024 2:32 PM EST Images from the original note were not included. Billie Joseph PA-C Surgical Oncology [address] [facility], [address] [place] [address] VIRTUAL VISIT PROGRESS NOTE This is a virtual visit using Projektino Zoom Video Visit. It required patient- provider interaction for the medical decision making as documented below. I have communicated my name and active licensure. The patient's identity and physical location wereverified at the time of this visit. Either the patient or their legal automotive sales representative has been informed of the risks and benefits of -- and alternatives to -- treatment through a remote evaluation andconsents to proceed with the evaluation remotely. Amna Sequeira is a 69 year old female here for a 3 month follow up. The patient had been seen previously for an indeterminate liver lesion found during workup for gastric perforation. The patient reports ongoing nausea and vomiting. She states this occurs every few months for the past year. She has not followed up with GI on an outpatient basis, but did have an EGDas an inpatient. No fever/chills. No jaundice. She was previously told to continue PPI/carafate. Also was told to avoid NSAIDS, smoking, and prednisone. PAST MEDICAL HISTORY Diagnosis Date Acid reflux Anxiety Chronic pain back,hips, and knees COPD (chronic obstructive pulmonary disease) (HCC) DVT (deep venous thrombosis) (HCC) 10/30/2005 IBS (irritable bowel syndrome) Insomnia RA (rheumatoid arthritis) (HCC) Thyroid disease PAST SURGICAL HISTORY Procedure Laterality Date CARPAL TUNNEL 2003 right COLONOSCOPY 2008 HYSTERECTOMY HX 1993 PAST SURGICAL HISTORY OF 01/2013 Rt total knee replacement PAST SURGICAL HISTORY OF 2011 Rt hip placement THYROIDECTOMY TOTAL/COMPLETE 09/09/13 TONSILLECTOMY HX Social History Tobacco Use Smoking status: Every Day Current packs/day: 1.00 Average packs/day: 1 pack/day for 20.0 years (20.0 ttl pk-yrs) Types: Cigarettes Vaping Use Vaping status: Never Used Substance Use Topics Alcohol use: No Drug use: Never FAMILY HISTORY Problem Relation Age of Onset Cancer Brother liver Diabetes Father Diabetes Sister Diabetes Brother Heart Maternal Grandmother Stroke Father The ROS, medical, surgical, family, and social history were reviewed by Billie Joseph PA-C ALLERGIES Allergen Reactions Bactrim [Sulfametho* Rash Macrobid [Nitrofura* Other: See Comments Decreased heart rate Sulfa (Sulfonamide * Hives Current Outpatient Medications Medication Sig iv contrast (will be provided with radiology test) CT PANCREAS W Inject, intravenously, once for 1 dose.No IV access, insert saline lock prior to the beginning of sedation, infusion, injection of imaging exam. Discontinue saline lock post exam. If Pt. has a central line or IVAD, may access for administration according to line specific nursing protocol. Once exam is complete flush line and de-access according to line specific nursing protocol in the CT contrast administration guidelines link. tofacitinib (XELJANZ) 5 mg tab Take by mouth twice daily. Sodium,Potassium,&Mag Sulfates (SUPREP) 17.5-3.13-1.6 gram solr Take according to printed instructions given by office. fentaNYL (DURAGESIC) 75 mcg/hr Apply 1 Patch as directed every 72 hours. levothyroxine 175 mcg tablet Take 175 mcg by mouth daily before breakfast. GABAPENTIN 300 mg capsule twice daily. tiotropium 18 mcg INHALATION inhalation capsule Inhale 1 capsule as instructed once daily. fluticasone-salmeterol (ADVAIR DISKUS) 100-50 mcg/dose INHALATION DsDv Inhale 1 Puff as instructed twice daily. RINSE AND GARGLE MOUTH WITH WATER AFTER EACH USE. albuterol 90 mcg/Actuation INHALATION Aero Inhale 2 Puffs as instructed four times daily as needed.FOR WHEEZING AND SHORTNESS OF BREATH. Methotrexate Sodium (METHOTREXATE, ANTI-RHEUMATIC,) 2.5 mg ORAL tablet Take 3 tablets by mouth onceeach week. hydroxychloroquine (PLAQUENIL) 200 mg ORAL tablet Take by mouth once daily. folic acid 1 mg ORAL tablet Take 1 tablet by mouth once daily. omeprazole (PRILOSEC) 20 mg ORAL capsule Take 1 capsule by mouth once daily. montelukast (SINGULAIR) 10 mg ORAL tablet Take 1 tablet by mouth daily at bedtime. sertraline (ZOLOFT) 50 mg ORAL tablet Take 1 tablet by mouth three times daily. zolpidem (AMBIEN) 10 mg ORAL Tab Take 1 tablet by mouth at bedtime as needed. FOR INSOMNIA methocarbamol 750 mg ORAL tablet Take 1 tablet by mouth twice daily. warfarin (COUMADIN) 5 mg ORAL tablet Take 1 tablet by mouth. Twice per week warfarin 2.5 mg ORAL tablet Take 1 tablet by mouth. Take 1 tablet 5 times per week No current facility-administered medications for this visit. OBJECTIVE VIDEO EXAM: (if completed, performed via video enabled technology) GENERAL: alert and appropriate, in no distress and well-hydrated, well nourished SKIN: no rash noted and no jaundice noted RESPIRATORY: breathing non-labored NEUROLOGIC: no obvious deficit DATA: CT Liver 11/04/24 IMPRESSION: Stable low-attenuation hepatic density, likely focal steatosis Stable thoracolumbar compression deformities. Renal cysts ASSESSMENT AND PLAN Plan Liver lesion Nausea and vomiting - reviewed imaging with patient, stable hepatic density likely focal steatosis - no further surveillance of this density needed at this time - will place referral to GI for continued outpatient workup of nausea and vomiting - no GI tract wall thickening or pancreas inflammation noted on recent scan I spent a total of 30 minutes on the date of the service which included preparing to see the patient, [id number] patient care, completing clinical documentation, performing a medically appropriate examination, counseling and educating the patient/family/caregiver, and communicating results to the patient/family/caregiver Billie Joseph PA-C documented [facility] History of Present illness Narrative* Amanda Pichardo, RT(R) - 11/04/2024 3:00 PM EST Radiology Service Progress Note DATE OF SERVICE: November 04, 2024 TIME: 4:02 PM PATIENT IDENTITY VERIFICATION COMPLETED USING TWO (2) STANDARD IDENTIFIERS: Name and Date of confirmed by patient verbally. FALL SCREENING: Has the patient had 2 falls in the last year or 1 fall with injury or currently using an Ambulatory Assistive Device (Walker, Cane, Wheelchair, Crutches, etc.)? No PATIENT GENDER DATA: Female. status: : No status: NO. PATIENT RELEVANT IMPLANT DATA REVIEWED: Yes PATIENT PRESENTS WITH AN IMPLANTABLE OR ATTACHED COMMUNITY HEALTH PLANNING DIRECTOR: No ALLERGIES: Reviewed and unchanged CONTRAST ALLERGY: NO. EXAM: CT -CONTRAST INDUCED NEPHROPATHY RISK FACTORS: Patient age > 60 years CREATININE: Creatinine Date Value Ref Range Status 11/04/2024 0.69 0.58 - 0.96 mg/dL Final 08/01/2024 0.60 0.58 - 0.96 mg/dL Final 07/31/2024 0.62 0.58 - 0.96 mg/dL Final Estimated Glomerular Filtration Rate Date Value Ref Range Status 11/04/2024 94 >=60 mL/min/1.73m Final Comment: Estimated Glomerular Filtration Rate (eGFR) is calculated using the 2020 CKD-EPI creatinine equation. This equation utilizes serum creatinine, sex, and age as parameters. The creatinine assay has traceable calibration to isotope dilution- mass spectrometry. Refer to KDIGO guidelines for clinical interpretation. In patients with unstable renal function, e.g. those with acute kidney injury, the eGFRmay not accurately reflect actual GFR. eGFR- Date Value Ref Range Status 06/03/2014 >60 Final P.O.C.T. RESULTS: POC done: Yes, See Lab Tab November 04, 2024 TREATMENT: N/A PERIPHERAL IV DATA: Ambulatory: A peripheral IV was started in the Left antecubital site with a Angio cath: 18 gauge. RADIOLOGY DEPARTMENT: CT; Exam(s) Completed: Liver SIGNATURE: DOMENICO [place]) PATIENT NAME: Amna Sequeira DATE: November 04, 2024 TIME: 4:02 PM documented in this encounterL[facility] NoteHNO ID: [id number] Author: AMANDA PICHARDO RT(R) Service: ? Author Type: Environmental Field Services Technician Type: Progress Notes Filed: 11/04/2024 16:03 Note Text: Radiology Service Progress Note DATE OF SERVICE: November 04, 2024 TIME: 4:02 PM PATIENT IDENTITY VERIFICATION COMPLETED USING TWO (2) STANDARD IDENTIFIERS: Name and Date of confirmed by patient verbally. FALL SCREENING: Has the patient had 2 falls in the last year or 1 fall with injury or currently using an Ambulatory Assistive Device (Walker, Cane, Wheelchair, Crutches, etc.)? No PATIENT GENDER DATA: Female. status: : No status: NO. PATIENT RELEVANT IMPLANT DATA REVIEWED: Yes PATIENT PRESENTS WITH AN IMPLANTABLE OR ATTACHED COMMUNITY HEALTH PLANNING DIRECTOR: No ALLERGIES: Reviewed and unchanged CONTRAST ALLERGY: NO. EXAM: CT -CONTRAST INDUCED NEPHROPATHY RISK FACTORS: Patient age > 60 years CREATININE: Creatinine Date Value Ref Range Status 11/04/2024 0.69 0.58 - 0.96 mg/dL Final 08/01/2024 0.60 0.58 - 0.96 mg/dL Final 07/31/2024 0.62 0.58 - 0.96 mg/dL Final Estimated Glomerular Filtration Rate Date Value Ref Range Status 11/04/2024 94 >=60 mL/min/1.73m? Final Comment: Estimated Glomerular Filtration Rate (eGFR) is calculated using the 2020 CKD-EPI creatinine equation. This equation utilizes serum creatinine, sex, and age as parameters. The creatinine assay has traceable calibration to isotope dilution-mass spectrometry. Refer to KDIGO guidelines for clinical interpretation. In patients with unstable renal function, e.g. those with acute kidney injury, the eGFR may not accurately reflect actual GFR. eGFR- Date Value Ref Range Status 06/03/2014 >60 Final P.O.C.T. RESULTS: POC done: Yes, See Lab Tab November 04, 2024 TREATMENT: N/A PERIPHERAL IV DATA: Ambulatory: A peripheral IV was started in the Left antecubital site with a Angio cath: 18 gauge. RADIOLOGY DEPARTMENT: CT; Exam(s) Completed: Liver SIGNATURE: RT Naman(R) PATIENT NAME: Amna Sequeira DATE: November 04, 2024 TIME: 4:02 [facility]10-22-2024 Note* Addendum Note - Aubree Ireland MD - 08/20/2024 2:49 PM EDTAddended by: AUBREE IRELAND on: 08/20/2024 02:49 PM Modules accepted: Orders [facility]10-22-2024 Miscellaneous Notes* Addendum Note - Aubree Ireland MD - 08/20/2024 2:49 PM EDTAddended by: AUBREE IRELAND on: 08/20/2024 02:49 PM Modules accepted: Orders documented in this encounterL[facility]10-22-2024 NoteHNO ID: [id number] Author: AUBREE IRELAND MD Service: ? Author Type: Physician Type: Progress Notes Filed: 08/20/2024 14:49 Note Text: [facility] SURGERY PROGRESS NOTE Subjective INTERVAL HISTORY OF PRESENT ILLNESS: Doing well overall Abdominal pain that she had while in the hospital has resolved She is able to eat, but notices it is smaller amounts Having 5-6 episodes of diarrhea daily Last dose of augmentin today; eating yogurt daily Objective PHYSICAL EXAM: BP 132/78 Pulse 84 Ht 5' 4 (1.63m) SpO2 97% Physical Exam Performed GENERAL: Alert, no distress, cooperative LUNGS: Negative ABDOMEN: Soft, nontender The remainder of the physical exam is noncontributory. DATA: Diagnostic tests reviewed for today's visit: Most recent labs and imaging results. CT pancreas 08/13/24: --Almost complete resolution of previously seen fluid collections adjacent and within the pancreas, with small residual foci of air. --No definite suspicious focal pancreatic lesions. No pancreatic ductal dilation --Unchanged hypodense hepatic lesion, which may represent focal fat however is strictly indeterminate Assessment/Plan 69 year old female recently admitted with posterior gastric perforation that has now almost completely resolved. Having diarrhea and finished antibiotics today. Indeterminate liver lesion on scan, but patient refusing MRI. --CT liver 3 months --Virtual follow-up after --Check cdiff - if negative, ok to use imodium PRN --Continue PPI/carafate --Avoid NSAIDs; counseled to stop smoking and patient not interested; avoid more prednisone - patient unable to stop taking it and unwilling to take anything else for her RA Luisa Ireland MD [facility]10-22-2024 History of Present illness Narrative* Aubree Ireland MD - 08/20/2024 2:03 PM EDT [facility] SURGERY PROGRESS NOTE Subjective INTERVAL HISTORY OF PRESENT ILLNESS: Doing well overall Abdominal pain that she had while in the hospital has resolved She is able to eat, but notices it is smaller amounts Having 5-6 episodes of diarrhea daily Last dose of augmentin today; eating yogurt daily Objective PHYSICAL EXAM: BP 132/78 Pulse 84 Ht 5' 4 (1.63m) SpO2 97% Physical Exam Performed GENERAL: Alert, no distress, cooperative LUNGS: Negative ABDOMEN: Soft, nontender The remainder of the physical exam is noncontributory. DATA: Diagnostic tests reviewed for today's visit: Most recent labs and imaging results. CT pancreas 08/13/24: --Almost complete resolution of previously seen fluid collections adjacent and within the pancreas,with small residual foci of air. --No definite suspicious focal pancreatic lesions. No pancreatic ductal dilation --Unchanged hypodense hepatic lesion, which may represent focal fat however is strictly indeterminate Assessment/Plan 69 year old female recently admitted with posterior gastric perforation that has now almost completely resolved. Having diarrhea and finished antibiotics today. Indeterminate liver lesion on scan, but patient refusing MRI. --CT liver 3 months --Virtual follow-up after --Check cdiff - if negative, ok to use imodium PRN --Continue PPI/carafate --Avoid NSAIDs; counseled to stop smoking and patient not interested; avoid more prednisone - patient unable to stop taking it and unwilling to take anything else for her RA Luisa Ireland MD [facility] Surgeon documented in this encounterL[facility] History of Present illness Narrative* Amanda Pichardo, RT(R) - 08/13/2024 3:00 PM EDT Radiology Service Progress Note DATE OF SERVICE: August 13, 2024 TIME: 3:53 PM PATIENT IDENTITY VERIFICATION COMPLETED USING TWO (2) STANDARD IDENTIFIERS: Name and Date of confirmed by patient verbally. FALL SCREENING: Has the patient had 2 falls in the last year or 1 fall with injury or currently using an Ambulatory Assistive Device (Walker, Cane, Wheelchair, Crutches, etc.)? No PATIENT GENDER DATA: Female. status: : No status: NO. PATIENT RELEVANT IMPLANT DATA REVIEWED: Yes PATIENT PRESENTS WITH AN IMPLANTABLE OR ATTACHED COMMUNITY HEALTH PLANNING DIRECTOR: No ALLERGIES: Reviewed and unchanged CONTRAST ALLERGY: NO. EXAM: CT -CONTRAST INDUCED NEPHROPATHY RISK FACTORS: Patient age > 60 years CREATININE: Creatinine Date Value Ref Range Status 08/01/2024 0.60 0.58 - 0.96 mg/dL Final 07/31/2024 0.62 0.58 - 0.96 mg/dL Final 07/30/2024 0.60 0.58 - 0.96 mg/dL Final Estimated Glomerular Filtration Rate Date Value Ref Range Status 08/01/2024 97 >=60 mL/min/1.73m Final Comment: Estimated Glomerular Filtration Rate (eGFR) is calculated using the 2020 CKD-EPI creatinine equation. This equation utilizes serum creatinine, sex, and age as parameters. The creatinine assay has traceable calibration to isotope dilution- mass spectrometry. Refer to KDIGO guidelines for clinical interpretation. In patients with unstable renal function, e.g. those with acute kidney injury, the eGFRmay not accurately reflect actual GFR. eGFR- Date Value Ref Range Status 06/03/2014 >60 Final P.O.C.T. RESULTS: POC done: Yes, See Lab Tab August 13, 2024 TREATMENT: N/A PERIPHERAL IV DATA: Ambulatory: A peripheral IV was started in the Left with a Angio cath: 20 gauge. RADIOLOGY DEPARTMENT: CT; Exam(s) Completed: Pancreas SIGNATURE: DOMENICO [place]) PATIENT NAME: Amna Sequeira DATE: August 13, 2024 TIME: 3:53 PM documented in this encounterLake [facility]10-15-2024 NoteHNO ID: [id number] Author: AMANDA PICHARDO RT(R) Service: ? Author Type: Environmental Field Services Technician Type: Progress Notes Filed: 08/13/2024 15:53 Note Text: Radiology Service Progress Note DATE OF SERVICE: August 13, 2024 TIME: 3:53 PM PATIENT IDENTITY VERIFICATION COMPLETED USING TWO (2) STANDARD IDENTIFIERS: Name and Date of confirmed by patient verbally. FALL SCREENING: Has the patient had 2 falls in the last year or 1 fall with injury or currently using an Ambulatory Assistive Device (Walker, Cane, Wheelchair, Crutches, etc.)? No PATIENT GENDER DATA: Female. status: : No status: NO. PATIENT RELEVANT IMPLANT DATA REVIEWED: Yes PATIENT PRESENTS WITH AN IMPLANTABLE OR ATTACHED COMMUNITY HEALTH PLANNING DIRECTOR: No ALLERGIES: Reviewed and unchanged CONTRAST ALLERGY: NO. EXAM: CT -CONTRAST INDUCED NEPHROPATHY RISK FACTORS: Patient age > 60 years CREATININE: Creatinine Date Value Ref Range Status 08/01/2024 0.60 0.58 - 0.96 mg/dL Final 07/31/2024 0.62 0.58 - 0.96 mg/dL Final 07/30/2024 0.60 0.58 - 0.96 mg/dL Final Estimated Glomerular Filtration Rate Date Value Ref Range Status 08/01/2024 97 >=60 mL/min/1.73m? Final Comment: Estimated Glomerular Filtration Rate (eGFR) is calculated using the 2020 CKD-EPI creatinine equation. This equation utilizes serum creatinine, sex, and age as parameters. The creatinine assay has traceable calibration to isotope dilution-mass spectrometry. Refer to KDIGO guidelines for clinical interpretation. In patients with unstable renal function, e.g. those with acute kidney injury, the eGFR may not accurately reflect actual GFR. eGFR- Date Value Ref Range Status 06/03/2014 >60 Final P.O.C.T. RESULTS: POC done: Yes, See Lab Tab August 13, 2024 TREATMENT: N/A PERIPHERAL IV DATA: Ambulatory: A peripheral IV was started in the Left with a Angio cath: 20 gauge. RADIOLOGY DEPARTMENT: CT; Exam(s) Completed: Pancreas SIGNATURE: RT Naman(R) PATIENT NAME: Amna Sequeira DATE: August 13, 2024 TIME: 3:53 [facility]10-03-2024 NoteHNO ID: [id number] Author: BILLIE URIARTE RN Service: Care Management Author Type: Registered Nurse Type: Care Mgt Progress Note Filed: 08/01/2024 15:46 Note Text: CARE MANAGEMENT DISCHARGE NOTE SERVICE DATE: August 01, 2024 SERVICE TIME: 3:41 PM Admission Date: 07/28/2024 LOS: 4 days Discharge Arrangement Discharge Arrangement: Home with Home Health Services Arranged Medical Services: Skilled Home Health Care Type: Home Health Agency, [facility], Physical Therapy, Occupational Therapy Provider Name: [facility] Caregiver Assessment Caregiver is ready, willing and able to meet the patient's needs as recommended by the inter-professional team: Yes Discussed care needs and therapy recommendation with patient's daughter Fransisca. Patient's daughter states they are willing/ able to care for her as needed. Declines need for placement. Transportation Arrangements Transportation Arrangements: Car; Patient's family will provide discharge transportation. Handoff Communication: Handoff to: Other Caregiver Other Caregiver Name/Phone: [facility]/ Bedside RN Additional Information: Discharge Information Row Name ED to Hosp-Admission (Current) from 07/28/[address] GENERAL SUR[facility]ERY Home Health Care Agency [facility] Spoke with patient and patient's daughter Fransisca. Discharge today. Discharge orders complete. Patient declines need for placement and has elected to return home at discharge with skilled home health care/ home therapy services. Patient is agreeable to us arranging [facility] through a provider that can take her insurance. No preference. [facility] notified and is able to accept. [facility] aware of discharge home today. Physician order placed for home care services: Yes. Start of care date: [facility] will reach out to patient to confirm start of care date. Patient/Family agreeable to discharge plan: Yes. SIGNATURE: Billie Uriarte RN PATIENT NAME: Amna Sequeira DATE: August 01, 2024 TIME: 3:41 PM CONTACT #: [id number] NoteHNO ID: [id number] Author: AUBREE IRELAND MD Service: General Surgery Author Type: Physician Type: Progress Notes Filed: 08/01/2024 15:02 Note Text: Documentation Query Please clarify the Status of Pancreatic Fistula. Diagnosis Ruled Out this encounter This document will become part of the patient's medical record.[facility]10-03-2024 NoteHNO ID: [id number] Author: AUBREE IRELAND MD Service: General Surgery Author Type: Physician Type: Progress Notes Filed: 08/01/2024 14:45 Note Text: Documentation Query Please clarify the Degree of Protein-Calorie Malnutrition (PCM) with the above clinical indicators. Moderate Protein-Calorie Malnutrition is the current diagnosis, Severe Protein-Calorie Malnutrition Ruled Out This document will become part of the patient's medical record.[facility]10-03-2024 NoteHNO ID: [id number] Author: BELEN MENARD APRN.CNP Service: Gastroenterology Author Type: Nurse Practitioner Type: Plan of Care Filed: 08/01/2024 13:38 Note Text: GI following for concerns for gastric perforation vs pancreatic necrosis. Medical chart reviewed. Patient not seen face to face. Discussed patient with GI attending, Dr. Howard. S/p EGD 07/31/2024: - Small hiatal hernia. - Normal stomach. - Erosive duodenopathy without bleeding. isolated area in d4 not ulcerated no bleeding impingemnt externally probably from pancreatic fluid collection - No specimens collected. Recommendations: -Avoid NSAIDs -Continue PPI -No plans for EUS at this time -No further plans for inpatient GI interventions at this time -Recommend following with [facility] surgery -Can follow with GI in OP setting - can call [phone] to make an appointment with [place] [facility] office or can call [phone] for [place] [facility]. GI attending, Dr. Howard GI will sign off. Please contact if there are any questions, concerns, or changes in clinical status.[facility]10-03-2024 NoteHNO ID: [id number] Author: OSVALDO SEGURA MD Service: Pain Management Author Type: Physician Type: Progress Notes Filed: 08/01/2024 10:08 Note Text: Name: AMNA SEQUEIRA Age: [age] year old PAIN MANAGEMENT: Chronic pain, fibromyalgia, RA, osteoarthritis, abdominal pain with CT concerning for possible walled off gastric perforation versus pancreatic necrosis Pain Description: Complains of some abdominal pain; wants to eat. Tolerated clear liquid diet Interval HPI: No acute events overnight; diet advanced to regular. Possible discharge later today on 2 weeks of oral antibiotics 07/31 EGD erosive duodenostomy and D4 impingement externally --recommendations for CT abd/pelv with IVCONT pancreatic protocol 24H Comfort Meds: Tylenol 975 mg x 3 Xanax 0.25 mg x 0 Gabapentin 800 mg x 2 Robaxin 500 mg x 2 Oxycodone 10 mg x 3 Subjective HPI: 69-year-old female with history of chronic multifactorial pain (fibromyalgia, RA, osteoarthritis s/p right TKA/LADI) opiate dependent, tobacco abuse, DVTs on Coumadin, hypothyroidism transferred 07/28 from [place] with nausea, emesis, anorexia, 30 pound weight loss over the last 2 months and severe constipation (no BM x 1 month?) CTAP shows a air and fluid collection measuring about 3 cm posterior to the stomach and adjacent to the pancreas concerning for possible Posterior gastric Pref with regional abscess versus walled off pancreatic necrosis. Labs included creatinine 0.63 lipase 101 WBC 16.4 hemoglobin 9.1 PT 13 INR 1.2. 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 Also notable for 1.3 x 0.8 cm fluid density structure within the posterior neck-body junction of the pancreas concerning for possible cystic neoplasm. HBP consulted. Patient is followed by Dr. Simon in [place] for chronic pain management. Home pain regimen includes gabapentin 800 mg 3 times daily (for RLS), oxycodone 10 mg up to 6 tabs daily. She also takes Xanax 0.25 mg at bedtime. She lives with her family; her daughter, son-in-law, son and 2 grandchildren all live with her. She smokes 1/2 to 2 packs/day. She denies alcohol. She drinks 1 cup of CBD coffee daily. She denies marijuana. OARRS Review: A1 prescriptions and 3 prescribers. Opiate and benzodiazepine dependent. Most recent prescriptions: 06/24, 07/23 gabapentin 800 mg #90 07/12 oxycodone 10 mg #180 (30-day supply) 06/14 oxycodone 10 mg #120 05/27 Xanax 0.25 mg #90 Current Facility-Administered Medications Medication Dose Route Frequency Provider Last Rate Last Admin [START ON 08/02/2024] fluconazole 400 mg tab(s) (DIFLUCAN) 400 mg ORAL DAILY Hernan Swan MD amoxicillin-clavulanate potassium 875 mg tab(s) (AUGMENTIN) 875 mg ORAL BID Hernan Swan MD 875 mg at 08/01/24 0942 NaCl 0.9% iv flush bag 20 mL INTRAVENOUS PRN Yaya Howard MD gabapentin 800 mg cap(s) (NEURONTIN) 800 mg ORAL q 12 H Yaya Howard MD 800 mg at 08/01/24 0805 morphine 2 mg injection 2 mg INTRAVENOUS q 3 H PRN Yaya Howard MD oxyCODONE IR 10 mg tab(s) (ROXICODONE) 10 mg ORAL q 4 H PRN Yaya Howard MD 10 mg at 08/01/24 0805 methocarbamol 1,500 mg tab(s) (ROBAXIN) 1,500 mg ORAL BID 8A/BEDTIME Yaya Howard MD 1,500 mg at 08/01/24 0806 ALPRAZolam 0.25 mg tab(s) (XANAX) 0.25 mg ORAL AT BEDTIME PRN Yaya Howard MD montelukast 10 mg tab(s) (SINGULAIR) 10 mg ORAL AT BEDTIME Yaya Howard MD 10 mg at 07/31/242022 levothyroxine (SYNTHROID) tab(s) 175 mcg 175 mcg ORAL DAILY (6 AM) Yaya Howard MD 175 mcg at 08/01/24 0529 lactated ringers iv infusion 125 mL/hr INTRAVENOUS CONTINUOUS Yaya Howard MD 125 mL/hr at 08/01/24 0530 125 mL/hr at 08/01/24 0530 acetaminophen 975 mg tab(s) (TYLENOL) 975 mg ORAL QID Yaya Howard MD 975 mg at 08/01/24 0805 iv contrast (radiology procedure) INTRAVENOUS DIRECTED PRN Yaya Howard MD heparin iv infusion 25,000 units in NaCl 0.45% 250 mL STANDARD NOMOGRAM 0-3,000 Units/hr INTRAVENOUS CONTINUOUS Yaya Howard MD 10 mL/hr at 08/01/24 0606 1,000 Units/hr at 08/01/24 0606 And heparin RATE CHANGE bolus 1,000-10,000 Units for subtherapeutic PTTAC results 1,000-10,000 Units INTRAVENOUS PRN Yaya Howard MD 3,200 Units at 07/31/24 1612 pantoprazole 40 mg injection (PROTONIX) 40 mg INTRAVENOUS BID AC (0600/1600) Yaya Howard MD 40 mg at 08/01/24 0529 sucralfate 1 g tab(s) (CARAFATE) 1 g ORAL AC and HS Yaya Howard MD 1 g at 08/01/24 0809 ipratropium 0.02 % 0.5 mg (ATROVENT) 0.5 mg INHALATION QID Yaya Howard MD 0.5 mg at 10 (more content not included)...[facility]10-03-2024 NoteHNO ID: [id number] Author: AUBREE IRELAND MD Service: General Surgery Author Type: Resident Type: Progress Notes Filed: 08/01/2024 13:40 Note Text: Attestation signed by Aubree Ireland MD at 08/01/2024 1:40 PM TEACHING PHYSICIAN NOTE OF PERSONAL INVOLVEMENT IN CARE: I have personally seen and examined the patient and performed the medical decision-making components. I have reviewed the medical student documentation and verified the findings in the note as written. Any additions or changes are noted in bold/italics. OK for regular diet Augmentin/fluc x 2 weeks PPI/carafate Discharge this afternoon versus tomorrow Follow-up with me in [address] pancreas Signature: Aubree Ireland Date: 08/01/2024 Time: 1:40 PM Resident Supervision of Medical Student I personally saw and examined the patient. I reviewed the medical student's note. I agree with the medical student's assessment and plan unless otherwise noted below. - NAEON. Tolerated CLD yesterday. - Will progress to reg diet today. If tolerates then possible DC home later today. Will DC with 2 weeks of augmentin and fluconazole. - continue with Zosyn and fluconazole - PPI/carafate - continue with multimodal pain regimen - zofran prn for nausea - continue to encourage ambulation Signature: Phyllis Mcdonald DO Date: 08/01/2024 Time: 7:36 AM MEDICAL STUDENT Elective General Surgery (Blue Surgery) Progress Note This note was generated by a medical student working under the supervision of a resident and attending physician. When co-signed, the physical exam findings, assessment, and plan as written below are are considered accurate. SERVICE DATE: August 01, 2024 Elective General Surgery (Blue Surgery) Service Pager: For questions or concerns Mon-Fri 6a-5p please page [phone]. After 5pm and on Weekends and Holidays, please page [phone] if in ICU or [phone] if on RNF. SUBJECTIVE: Pt seen at the bedside on rounds. Some mild abdominal pain, but well controlled. Tolerating her diet well, denies nausea, vomiting. Passing gas, denies bowel movement. Endorses that she worked with therapy yesterday and is mobilizing appropriately, demonstrates IS. OBJECTIVE: Vitals: Temp (24hrs), Av.6 ?C (97.9 ?F), Min:36.4 ?C (97.5 ?F), Max:36.8 ?C (98.3 ?F) BP 115/80 Pulse 77 Temp 36.6 ?C (97.8 ?F) (Axillary) Resp 16 Ht 162.6 cm (5' 4) Wt 80.7 kg (177 lb 14.6 oz) SpO2 95% BMI 30.54 kg/m? O2 Therapy: Room Air IANDO: Date 07/31/24 0700 - 08/01/24 0659 08/01/24 07 - 08/02/24 0659 Shift 0252-0753 6399-1707 2004-1638 24 Hour Total 1949-1415 2203-0975 5316-9136 24 Hour Total INTAKE PO 120 120 PO 120 120 IV 125 125 Volume (mL) (lactated ringers iv infusion) 125 125 Shift Total 125 120 245 OUTPUT Urine 400 0 800 1200 Output ( External Collection Device 07/29/24 0016 [facility]) 400 0 800 1200 Shift Total 400 0 800 1200 Weight (kg) 80.7 80.7 80.7 80.7 80.7 80.7 80.7 80.7 MEDICATIONS Current Facility-Administered Medications Medication Dose Route Frequency NaCl 0.9% iv flush bag 20 mL INTRAVENOUS PRN fluconazole iv piggyback 800 mg in NaCl (iso-osmotic) 400 mL (DIFLUCAN) 800 mg INTRAVENOUS DAILY gabapentin 800 mg cap(s) (NEURONTIN) 800 mg ORAL q 12 H morphine 2 mg injection 2 mg INTRAVENOUS q 3 H PRN oxyCODONE IR 10 mg tab(s) (ROXICODONE) 10 mg ORAL q 4 H PRN methocarbamol 1,500 mg tab(s) (ROBAXIN) 1,500 mg ORAL BID 8A/BEDTIME ALPRAZolam 0.25 mg tab(s) (XANAX) 0.25 mg ORAL AT BEDTIME PRN montelukast 10 mg tab(s) (SINGULAIR) 10 mg ORAL AT BEDTIME levothyroxine (SYNTHROID) tab(s) 175 mcg 175 mcg ORAL DAILY (6 AM) lactated ringers iv infusion 125 mL/hr INTRAVENOUS CONTINUOUS acetaminophen 975 mg tab(s) (TYLENOL) 975 mg ORAL QID iv contrast (radiology procedure) INTRAVENOUS DIRECTED PRN heparin iv infusion 25,000 units in NaCl 0.45% 250 mL STANDARD NOMOGRAM 0-3,000 Units/hr INTRAVENOUS CONTINUOUS And heparin RATE CHANGE bolus 1,000-10,000 Units for subtherapeutic PTTAC results 1,000-10,000 Units INTRAVENOUS PRN pantoprazole 40 mg injection (PROTONIX) 40 mg INTRAVENOUS BID AC (06) piperacillin-tazobactam iv piggyback 3.375 g in dextrose (iso-osmotic) 50 mL (ZOSYN) 3.375 g INTRAVENOUS q 6 H sucralfate 1 g tab(s) (CARAFATE) 1 g ORAL AC and HS ipratropium 0.02 % 0.5 mg (ATROVENT) 0.5 mg INHALATION QID prochlorperazine 5 mg injection (COMPAZINE) 5 mg INTRAVENOUS q 6 H PRN Or prochlorperazine 5 mg tab(s) (COMPAZINE) 5 mg ORAL q 6 H PRN mometasone-formoterol 200-5 mcg/actuation 2 Puff inhaler (DULERA) 2 Puff INHALATION BID Labs: Recent Labs 08/01/24 0519 07/31/24 0016 07/30/24 0450 NA -- 133* 136 K -- 3.2* 3.7 CHLOR -- 99 99 CO2 -- 18* 20* BUN -- 6* 7 CREAT -- (more content not included)...[facility]10-02-2024 NoteHNO ID: [id number] Author: OSVALDO SEGURA MD Service: Palliative Care Author Type: Physician Type: Progress Notes Filed: 07/31/2024 15:32 Note Text: Documentation Query Please clarify the Present on Admission status for the diagnosis of sacral Pressure Injury. Present on Admission This document will become part of the patient's medical record.[facility]10-02-2024 NoteHNO ID: [id number] Author: BILLIE URIARTE RN Service: Care Management Author Type: Registered Nurse Type: Care Mgt Progress Note Filed: 07/31/2024 15:58 Note Text: CARE MANAGEMENT PROGRESS NOTE SERVICE DATE: 07/31/2024 SERVICE TIME: 2:06 PM LOS: 3 days Chart reviewed. Patient from home with family prior to admission. Presents with concern for gastric perforation vs pancreatic necrosis. GI consulted. PT recommends SNF. OT evaluation pending. Patient off the floor for testing. SN[place] [id number] left at the bedside. ADDENDUM 3725: Spoke with patient at the bedside. Discussed therapy recommendation and reviewed SNF choice list. Patient states she prefers to return home at discharge but would like to speak with her family first before making any decisions. Will continue to follow for transitional/discharge planning needs. SIGNATURE: Billie Uriarte RN PATIENT NAME: Amna Sequeira DATE: July 31, 2024 TIME: 2:06 PM PAGER/CONTACT #: [phone] Note HNO ID: [id number] Author: AUBREE IRELAND MD Service: General Surgery Author Type: Physician Type: Progress Notes Filed: 07/31/2024 09:13 Note Text: Documentation Query Please clarify the Diagnosis associated with the above clinical indicators. Hypokalemia This document will become part of the patient's medical record.[facility]10-02-2024 NoteHNO ID: [id number] Author: OSVALDO SEGURA MD Service: Pain Management Author Type: Physician Type: Progress Notes Filed: 07/31/2024 14:11 Note Text: Name: AMNA SEQUEIRA Age: [age] year old PAIN MANAGEMENT: Chronic pain, fibromyalgia, RA, osteoarthritis, abdominal pain with CT concerning for possible walled off gastric perforation versus pancreatic necrosis Pain Description: Patient feels about the same; main complaint is abdominal pain. Interval HPI: Stable overnight. GI consulted for EGD. Remains NPO 24H Comfort Meds: Tylenol 975 mg x 4 Xanax 0.25 mg x 0 Gabapentin 800 mg x 1 Robaxin 500 mg x 2 Oxycodone 10 mg x 3 Subjective HPI: 69-year-old female with history of chronic multifactorial pain (fibromyalgia, RA, osteoarthritis s/p right TKA/LADI) opiate dependent, tobacco abuse, DVTs on Coumadin, hypothyroidism transferred 07/28 from [place] with nausea, emesis, anorexia, 30 pound weight loss over the last 2 months and severe constipation (no BM x 1 month?) CTAP shows a air and fluid collection measuring about 3 cm posterior to the stomach and adjacent to the pancreas concerning for possible Posterior gastric Pref with regional abscess versus walled off pancreatic necrosis. Labs included creatinine 0.63 lipase 101 WBC 16.4 hemoglobin 9.1 PT 13 INR 1.2. 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 Also notable for 1.3 x 0.8 cm fluid density structure within the posterior neck-body junction of the pancreas concerning for possible cystic neoplasm. HBP consulted. Patient is followed by Dr. Simon in [place] for chronic pain management. Home pain regimen includes gabapentin 800 mg 3 times daily (for RLS), oxycodone 10 mg up to 6 tabs daily. She also takes Xanax 0.25 mg at bedtime. She lives with her family; her daughter, son-in-law, son and 2 grandchildren all live with her. She smokes 1/2 to 2 packs/day. She denies alcohol. She drinks 1 cup of CBD coffee daily. She denies marijuana. OARRS Review: A1 prescriptions and 3 prescribers. Opiate and benzodiazepine dependent. Most recent prescriptions: 06/24, 07/23 gabapentin 800 mg #90 07/12 oxycodone 10 mg #180 (30-day supply) 06/14 oxycodone 10 mg #120 05/27 Xanax 0.25 mg #90 Current Facility-Administered Medications Medication Dose Route Frequency Provider Last Rate Last Admin [Transfer Hold] NaCl 0.9% iv flush bag 20 mL INTRAVENOUS PRN Phyllis Mcdonald DO lactated ringers iv infusion 5-30 mL/hr INTRAVENOUS CONTINUOUS Yaya Howard MD 30 mL/hr at 07/31/24 1403 30 mL/hr at 07/31/24 1403 [Transfer Hold] fluconazole iv piggyback 800 mg in NaCl (iso-osmotic) 400 mL (DIFLUCAN) 800 mg INTRAVENOUS DAILY Lamonte Dixon MD Stopped at 07/31/24 1243 [Transfer Hold] gabapentin 800 mg cap(s) (NEURONTIN) 800 mg ORAL q 12 H Osvaldo Segura MD 800 mg at 07/31/24 0842 [Transfer Hold] morphine 2 mg injection 2 mg INTRAVENOUS q 3 H PRN Osvaldo Segura MD [Transfer Hold] oxyCODONE IR 10 mg tab(s) (ROXICODONE) 10 mg ORAL q 4 H PRN Osvaldo Segura MD 10 mg at 07/31/24 1157 [Transfer Hold] methocarbamol 1,500 mg tab(s) (ROBAXIN) 1,500 mg ORAL BID 8A/BEDTIME Osvaldo Segura MD 1,500 mg at 07/31/24 0842 [Transfer Hold] ALPRAZolam 0.25 mg tab(s) (XANAX) 0.25 mg ORAL AT BEDTIME PRN Osvaldo Segura MD [Transfer Hold] montelukast 10 mg tab(s) (SINGULAIR) 10 mg ORAL AT BEDTIME Elly Lepe DO 10 mg at 07/30/24 2154 [Transfer Hold] levothyroxine (SYNTHROID) tab(s) 175 mcg 175 mcg ORAL DAILY (6 AM) Elly Lepe DO 175 mcg at 07/31/24 0629 [Transfer Hold] lactated ringers iv infusion 125 mL/hr INTRAVENOUS CONTINUOUS Elly Lepe DO 125 mL/hr at 07/31/24 0401 125 mL/hr at 07/31/24 0401 [Transfer Hold] acetaminophen 975 mg tab(s) (TYLENOL) 975 mg ORAL QID Elly Lepe DO 975 mg at 07/31/24 0842 [Transfer Hold] iv contrast (radiology procedure) INTRAVENOUS DIRECTED PRN Elly Lepe DO [Transfer Hold] heparin iv infusion 25,000 units in NaCl 0.45% 250 mL STANDARD NOMOGRAM 0-3,000 Units/hr INTRAVENOUS CONTINUOUS Elly Lepe DO 10 mL/hr at 07/31/24 0913 1,000 Units/hr at 07/31/24 0913 And [Transfer Hold] heparin RATE CHANGE bolus 1,000-10,000 Units for subtherapeutic PTTAC results 1,000-10,000 Units INTRAVENOUS PRN Elly Lepe DO 3,200 Units at 07/30/24 0602 [Transfer Hold] pantoprazole 40 mg injection (PROTONIX) 40 mg INTRAVENOUS BID AC (0600/1600) Elly Lepe DO 40 mg at 07/31/24 0616 [Transfer Hold] piperacillin-tazobactam iv piggyback 3.375 g in dextrose (iso-osmotic) 50 mL (ZOSYN) 3.375 g INTRAVENOUS q 6 H Elly Lepe DO Stopped at 07/31/24 1227 [Transfer Hold] sucralfate 1 g tab(s) ( (more content not included)...[facility]10-02-2024 NoteHNO ID: [id number] Author: AUBREE IRELAND MD Service: General Surgery Author Type: Resident Type: Progress Notes Filed: 07/31/2024 14:01 Note Text: Attestation signed by Aubree Ireland MD at 07/31/2024 2:01 PM TEACHING PHYSICIAN NOTE OF PERSONAL INVOLVEMENT IN CARE: I have personally seen and examined the patient and performed the medical decision-making components. I have reviewed the medical student documentation and verified the findings in the note as written. Any additions or changes are noted in bold/italics. GI consult for EGD Pending findings, ok for clears afterwards Continue heparin drip for now PPI/Carafate Zosyn/fluconazole Anticipate diet advancement tomorrow Signature: Aubree Ireland Date: 07/31/2024 Time: 1:59 PM Resident Supervision of Medical Student I personally saw and examined the patient. I reviewed the medical student's note. I agree with the medical student's assessment and plan unless otherwise noted below. - Pt upset regarding lack of concise treatment plan this morning. States that she would like plan so that she can go home. Pain well controlled this morning. Denies any n/v. Abd: Soft, mild diffuse tender to palpation, non-distended. No guarding or rebound Plan: - GI consulted to assess for possible EGD, awaiting recs - H.pylori negative - NPO/mIVF - pain management consulted, appreciate recs - compazine prn for nausea - continue current antibiotics - hep gtt - PPI/carafate Signature: Phyllis Mcdonald DO Date: 07/31/2024 Time: 7:16 AM MEDICAL STUDENT Elective General Surgery (Blue Surgery) Progress Note This note was generated by a medical student working under the supervision of a resident and attending physician. When co-signed, the physical exam findings, assessment, and plan as written below are are considered accurate. SERVICE DATE: July 31, 2024 Elective General Surgery (Blue Surgery) Service Pager: For questions or concerns Mon-Fri 6a-5p please page [phone]. After 5pm and on Weekends and Holidays, please page [phone] if in ICU or [phone] if on RNF. SUBJECTIVE: Seen at the bedside this am for morning rounds. Pt states that not much has changed with her pain levels and her nausea. Admits to one episode of emesis yesterday but nothing since then. She is NPO but taking some sips of water because her mouth is dry and she does not want to use the mouth swabs. States that she has not been out of bed since her presentation. OBJECTIVE: Vitals: Temp (24hrs), Av.7 ?C (98.1 ?F), Min:36.4 ?C (97.5 ?F), Max:36.9 ?C (98.5 ?F) BP 118/76 Pulse 72 Temp 36.4 ?C (97.5 ?F) (Oral) Resp 18 Ht 162.6 cm (5' 4) Wt 80.7 kg (177 lb 14.6 oz) SpO2 94% BMI 30.54 kg/m? O2 Therapy: Room Air IANDO: Date 07/30/24699 - 07/31/2465807/31/24699 - 08/01/24 0659 Shift 9040-9195 4296-9935 8147-3402 24 Hour Total 0609-9667 1148-8499 0636-0690 24 Hour Total INTAKE Shift Total OUTPUT Urine 400 065 765 2583 Output ( External Collection Device 07/29/24 0016 [facility]) 400 247 788 4500 Shift Total 400 880 387 8567 Weight (kg) 79.3 79.3 80.7 80.7 80.7 80.7 80.7 80.7 MEDICATIONS Current Facility-Administered Medications Medication Dose Route Frequency potassium chloride ER 40 mEq tab(s) (KLOR-CON) 40 mEq ORAL ONCE calcium gluconate iv piggyback 2 g in NaCl (iso-osmotic) 100 mL 2 g INTRAVENOUS ONCE NaCl 0.9% iv flush bag 20 mL INTRAVENOUS PRN fluconazole iv piggyback 800 mg in NaCl (iso-osmotic) 400 mL (DIFLUCAN) 800 mg INTRAVENOUS DAILY gabapentin 800 mg cap(s) (NEURONTIN) 800 mg ORAL q 12 H morphine 2 mg injection 2 mg INTRAVENOUS q 3 H PRN oxyCODONE IR 10 mg tab(s) (ROXICODONE) 10 mg ORAL q 4 H PRN methocarbamol 1,500 mg tab(s) (ROBAXIN) 1,500 mg ORAL BID 8A/BEDTIME ALPRAZolam 0.25 mg tab(s) (XANAX) 0.25 mg ORAL AT BEDTIME PRN montelukast 10 mg tab(s) (SINGULAIR) 10 mg ORAL AT BEDTIME levothyroxine (SYNTHROID) tab(s) 175 mcg 175 mcg ORAL DAILY (6 AM) lactated ringers iv infusion 125 mL/hr INTRAVENOUS CONTINUOUS acetaminophen 975 mg tab(s) (TYLENOL) 975 mg ORAL QID iv contrast (radiology procedure) INTRAVENOUS DIRECTED PRN heparin iv infusion 25,000 units in NaCl 0.45% 250 mL STANDARD NOMOGRAM 0-3,000 Units/hr INTRAVENOUS CONTINUOUS And heparin RATE CHANGE bolus 1,000-10,000 Units for subtherapeutic PTTAC results 1,000-10,000 Units INTRAVENOUS PRN pantoprazole 40 mg injection (PROTONIX) 40 mg INTRAVENOUS BID AC (0600/1600) piperacillin-tazobactam iv piggyback 3.375 g in dextrose (iso-osmotic) 50 mL (ZOSYN) 3.375 g INTRAVENOUS q 6 H sucralfate 1 g tab(s) (CARAFATE) 1 g ORAL AC and HS ipratropium 0.02 % 0.5 mg (ATROVENT) 0.5 mg INHALATION QID prochlorperazine 5 mg injection (COMPAZINE) 5 mg INTRA (more content not included)...[facility]10-01-2024 NoteHNO ID: [id number] Author: BILLIE URIARTE RN Service: Care Management Author Type: Registered Nurse Type: Care Mgt Progress Note Filed: 07/30/2024 10:19 Note Text: CARE MANAGEMENT PROGRESS NOTE SERVICE DATE: 07/30/2024 SERVICE TIME: 10:19 AM LOS: 2 days IMM Follow Up Copy Given: Yes Copy given to:: Patient Method: In Person SIGNATURE: Billie Uriarte RN PATIENT NAME: Amna Sequeira DATE: July 30, 2024 TIME: 10:19 AM PAGER/CONTACT #: [phone]09-30-2024 Note HNO ID: [id number] Author: PATI ANDREW RN Service: Care Management Author Type: Registered Nurse Type: Care Mgt Initial Assessment Filed: 07/29/2024 17:57 Note Text: CARE MANAGEMENT: ASSESSMENT AND DISCHARGE PLAN SERVICE DATE: July 29, 2024 SERVICE TIME: 5:50 PM PCP: No primary care provider on file. Primary Contact: Extended Emergency Contact Information Primary Emergency Contact: Fransisca Mendez [place] Relation: Daughter Secondary Emergency Contact: Ana Bermudez [place] Relation: Sister Admission Status: Inpatient Insurance Provider: [employer] MEDICARE PPO Discharge Planning requested by: Per Department Practice Potential Transition Plans To Be Determined Advance Directives Current Advance Directive: None Director Of Workforce Development Attempted to Assist with AD Completion: Yes Action: Education Provided Current Living Arrangements and Support Lives with: Children Type of Residence: Private Residence (House) Does the patient have to climb stairs at home?: Yes;stairs outside the home;stairs within the home Support: Children, Friends/neighbors How do you manage to accomplish the following: Needs Assistance: Ambulation;Bathe/Shower;Dress;Meals/Meal Prep;Going to the bathroom;Medication Management;Transportation to appointments/community Current Services/Equipment Current Post-Acute Service(s): DME Current DME Type: Rolling walker, Wheelchair-manual, Cane Discharge Planning Patient Goal(s): Be able to go home, General wellness, Less pain, Better appetite [place] of Choice Explained: [place] of Choice Given: No Reason Not Given: Unable to complete with this assessment - revisit Are you interested in bedside delivery of your medications? No Discharge Planning Participant(s): Patient Patient/Family Comments: Caregiver Assessment: Caregiver is ready, willing and able to meet the patient's needs as recommended by the inter-professional team: Yes Name of Caregiver: son and daughter Transport at Discharge: Transportation Arrangements: To Be Determined Needs Prior to Discharge: Needs Prior to Discharge: To Be Determined Post-Acute Discharge Plan: Per chart review, patient is a 69 year old female with past medical history of fibromyalgia, DVTs (on warfarin), hypothyroidism and RA presents with vomiting for [address] findings concerning for possible walled off gastric perforation versus pancreatic necrosis vs pancreatic fistula. Met with patient at bedside; introduced self and CM role. Prior to admission, patient needed assistance with ADL's. She lives with her daughter and son who provide care for her. She states she has been needing more assistance lately due to weakness from not being able to eat. She uses a rollator for ambulation Awaiting PT/OT recommendations for post-acute needs. CM will continue to follow and place referrals as appropriate. The patient will be transported home at d/c by family via private auto. SIGNATURE: Pati Andrew RN PATIENT NAME: Amna Sequeira DATE: July 29, 2024 TIME: 5:44 PM CONTACT #: [phone] Note HNO ID: [id number] Author: AKI HANNA APRN.CNP Service: General Surgery Author Type: Nurse Practitioner Type: Progress Notes Filed: 07/29/2024 08:54 Note Text: Emergency General Surgery Progress Note SERVICE DATE: July 29, 2024 Emergency General Surgery Service Pager: For questions or concerns Mon-Fri 6a-5p please page [phone]. After 5pm and on Weekends and Holidays, please page [phone] if in ICU or [phone] if on RNF. SUBJECTIVE: HPI: Amna Sequeira is a 69 year old female with past medical history of fibromyalgia, DVTs (on warfarin), hypothyroidism and RA presents with vomiting for [address] findings concerning for possible walled off gastric perforation versus pancreatic necrosis vs pancreatic fistula. This morning, Mr. Sequeira reports continued abdominal pain to both sides of her abdomen (pressure/gripping sensation). Denies nausea per se but states anything she eats or drinks she will vomit up. Reports a 30# weight loss. She suffers from generalized weakness, uses a wheeled walker for mobility. - Per pt, she has not had a bowel movement in 2 months??? She states she use to take high doses of Ibuprofen but has not been taking recently, switched to Tylenol after speaking with her PCP. Pt has been on Coumadin for years, has clotting disorder. Daughter and pt verbalized frustration for prolonged stay in the ED, awaiting a room on the floor. Tolerating diet DIET NPO Nausea Yes Emesis Yes Flatus Yes Bowel movement Yes Pain Controlled Yes Ambulating Stand and pivot. OBJECTIVE: Vitals: Temp (24hrs), Av.8 ?C (98.3 ?F), Min:36.8 ?C (98.3 ?F), Max:36.8 ?C (98.3 ?F) BP 117/82 Pulse 82 Temp 36.8 ?C (98.3 ?F) (Oral) Resp 20 Ht 162.6 cm (5' 4) Wt 79.4 kg (175 lb) SpO2 98% BMI 30.04 kg/m? O2 Therapy: Nasal Cannula IANDO: MEDICATIONS Current Facility-Administered Medications Medication Dose Route Frequency montelukast 10 mg tab(s) (SINGULAIR) 10 mg ORAL AT BEDTIME gabapentin 300 mg cap(s) (NEURONTIN) 300 mg ORAL BID levothyroxine (SYNTHROID) tab(s) 175 mcg 175 mcg ORAL DAILY (6 AM) methocarbamol 1,500 mg tab(s) (ROBAXIN) 1,500 mg ORAL TID lactated ringers iv infusion 125 mL/hr INTRAVENOUS CONTINUOUS acetaminophen 975 mg tab(s) (TYLENOL) 975 mg ORAL QID morphine 2 mg injection 2 mg INTRAVENOUS q 4 H PRN iv contrast (radiology procedure) INTRAVENOUS DIRECTED PRN And enteric contrast (radiology procedure) ORAL DIRECTED PRN oxyCODONE IR 5-10 mg tab(s) (ROXICODONE) 5-10 mg ORAL q 6 H PRN heparin iv infusion 25,000 units in NaCl 0.45% 250 mL STANDARD NOMOGRAM 0-3,000 Units/hr INTRAVENOUS CONTINUOUS And heparin RATE CHANGE bolus 1,000-10,000 Units for subtherapeutic PTTAC results 1,000-10,000 Units INTRAVENOUS PRN pantoprazole 40 mg injection (PROTONIX) 40 mg INTRAVENOUS BID AC (0600/1600) piperacillin-tazobactam iv piggyback 3.375 g in dextrose (iso-osmotic) 50 mL (ZOSYN) 3.375 g INTRAVENOUS q 6 H sucralfate 1 g tab(s) (CARAFATE) 1 g ORAL AC and HS vancomycin dosing and monitoring per pharmacy OTHER As Directed ipratropium 0.02 % 0.5 mg (ATROVENT) 0.5 mg INHALATION QID prochlorperazine 5 mg injection (COMPAZINE) 5 mg INTRAVENOUS q 6 H PRN Or prochlorperazine 5 mg tab(s) (COMPAZINE) 5 mg ORAL q 6 H PRN Labs: Recent Labs 07/29/24 0253 07/28/24 2301 NA 137 -- K 3.6* -- CHLOR 103 -- CO2 23 -- BUN 10 -- CREAT 0.63 -- GLUC 82 -- ANION 11 -- CA 8.1* -- WBC 16.36* -- HB 9.1* -- HCT 30.8* -- PLT 565* -- INR -- 1.2 Physical Exam: GENERAL: No distress, Alert NEURO: AANDOx3, CN II-XII grossly intact HEENT: normocephalic, atraumatic LUNGS: Unlabored breathing, equal chest rise bilaterally CARDIAC: Regular rate, warm and well perfused distal extremities ABDOMEN: Soft, non-distended, generalized edema. EXTREMITIES: KARIMI, No deformities, No edema SKIN: Skin color, texture, turgor normal, No rashes or lesions ASSESSMENT AND PLAN: Assessment Active Hospital Problems Diagnosis Date Noted Vomiting 07/28/2024 Hospital Course/Operations/Procedures: * No surgery found * Assessment: Amna Sequeira is a 69 year old female with past medical history of fibromyalgia, DVTs (on warfarin), hypothyroidism and RA presents with vomiting for [address] findings concerning for possible walled off gastric perforation versus pancreatic necrosis. Plan - given unclear source of air/fluid collection, will obtain CTAP pancreas protocol with PO contrast to further define - NPO/IVF - treat empirically for PUD - PPI BID - carafate - vanc/zosyn - H pylori pending - hold coumadin, start hep gtt - pain and nausea control - no acute surgical intervention given no free air and she is clinically stable CTAP today. INPATIENT ATTENDING: Dr. Perez. High-Risk Geriatric Patient Vulnerabilities: Impaired Functional Status, Impaired Mobility, and Malnutrition Diet: DIET NPO Code Status: N (more content not included)...[facility] 09-23-2023 NotePROCEDURE: CHEST AP PORTABLE, 09/23/2023 12:02 PM EST CLINICAL INDICATIONS: Cough, overdose ingestion, spasms COMPARISON: 12/29/2018 TECHNIQUE: Upright portable chest 1220 hours FINDINGS: The heart is mildly prominent. Mediastinum accentuated by rotation to the right. Lung volumes diminished with perihilar subsegmental atelectasis, mild pulmonary venous congestion. Trace pleural fluid or thickening is considered. Consolidation pleural effusion or pneumothorax are not evident. Acute osseous pathology is not evident. Regional soft tissues are normal. IMPRESSION: 1. Cardiomegaly 2. Diminished lung volumes 3. Perihilar pulmonary venous congestion or subsegmental atelectasis 4. [facility]othorax, consolidation, [facility] of Present illness Narrative* Félix MoultonMARVA-ROCK PICKER - 12/22/2021 10:00 AM EST HPI: Patient is here today for evaluation of their operative knee. She is status post total knee arthroplasty. She is about 3 year out, reports that she is doing well and is pleased with the outcome of the intervention. The knee feels better now than it did before, and she is not having any new symptoms with it. She has hx of PJI and ATBX managed by dr mayo. Doing well otherwise has reported hx of spine fx and follows with pain mgmt. PHYSICAL EXAM: The operative lower extremity is soft, nontender, full and supple motion. No pain, no impingement. No instability. She has full return of motion, 0-120 degrees, stable examination to varus and valgus stress with normal balance throughout the arc of motion. The contralateral extremityhas full motion, normal stability, no tenderness. Both extremities have normal neurovascular status. Skin is otherwise intact. Crepitus through arc of motion. DIAGNOSTIC STUDIES/INTERPRETATION: Plain film radiographs reviewed. She has a Cemented total knee arthroplasty in good position and alignment. No evidence of prosthetic implant loosening or migration. IMPRESSION: Stable status post total knee arthroplasty, doing well. PLAN: I am pleased with the outcome of intervention. She has made an excellent recovery. I expect continued improvement in strength and mobility moving forward. I recommend followup in 1 years for repeat clinical and radiographic examination or sooner if any new symptoms develop. Tylenol may be used to manage any aches and pains as needed. She will call with any questions or concerns in the meantime. I would like to check esr and crp. Will notify her of results. Greater than 20 minutes time was spent in review of the medical records, review of previous imaging, and more than 50% of that time was spent on face to face time with patient. Félix Moulton APRN-FANNIE I have reviewed the findings of the clinical administrative support technician and agree with their assessment. Ortho Nurse Established Patient Intake Room#: 5 Date: 12/22/2021 10:40 AM Patient: Amna Sequeira MR#: [id number] : 1955 Age: 66 y.o. 1yr R TKA Pt stated she is doing pretty good and states her pain depends on the weather. Pt denies any pain at the time of visit.0/10 on the pain scale. Referring Physician: Self, Self Insurance: Payor: MEDICARE MISC PFFS / Plan: MEDICARE MISC PFFS / Product Type: *No Product type* / Chief Complaint Patient presents with Right Knee - Follow-up Visit Vitals Temp 96.6 F (35.9 C) (Temporal) Ht 1.651 m (5' 5) Wt 89.4 kg (197 lb) BMI 32.78 kg/m Pain Recent Labs Lab Results Component Value Date CRP 10.8 (H) 12/24/2020 Lab Results Component Value Date SEDRATE 91 (H) 12/24/2020 Lab Results Component Value Date WBC 10.1 04/08/2020 HGB 12.3 04/08/2020 HCT 38.5 04/08/2020 PLATELET 344 04/08/2020 MCV 87.2 04/08/2020 History Past Medical History: Diagnosis Date Rheumatoid arteritis 1984 DVT (deep venous thrombosis) 1998 Fibromyalgia 2001 Family History: Her family history includes Breast Cancer in her sister; Cancer- Other in her brother; Coronary Artery Disease in her father and mother; Diabetes in her father; Stroke in her father. Social History: Her reports that she has been smoking cigarettes. She started smoking about 53 years ago. She has been smoking about 1.00 pack per day. She has never used smokeless tobacco. She reports that she does not drink alcohol and does not use drugs. Outpatient Medications Prior to Visit Medication Sig Dispense Refill albuterol 108 (90 Base) MCG/ACT Aero Soln inhaler Inhale 2 puffs. fentaNYL 50 MCG/HR Patch 72 HR 50 mcg/hr patch fluticasone-salmeterol (ADVAIR DISKUS) 100-50 MCG/DOSE Aerosol Powder, breath activated inhaler Inhale 1 puff. folic acid 1 MG Tab tablet Take 1 mg by mouth. gabapentin 800 MG Tab hydroxychloroquine 200 MG Tab tablet Take by mouth. levothyroxine 125 MCG Tab tablet methocarbamol 750 MG Tab methotrexate 2.5 MG Tab tablet Take 20 mg by mouth every 7 days. montelukast 10 MG Tab tablet Take 10 mg by mouth. omeprazole [address] capsule potassium chloride 20 MEQ Tab CR tablet predniSONE 5 MG Tab tablet daily. SPIRIVA HANDIHALER 18 MCG inhalation capsule therapeutic multivitamin-minerals Tab Take 1 tablet by mouth daily. 30 tablet 0 warfarin 2.5 MG tablet Take 2.5 mg by mouth. zolpidem 10 MG Tab tablet Take 5 mg by mouth at bedtime. acetaminophen 325 MG tablet Take 2 tablets by mouth every 4 hours as needed for Mild Pain. (Patientnot taking: Reported on 12/25/2019) 50 tablet 1 docusate 100 MG Cap capsule Take 1 capsule by mouth 2 times daily. (Patient not taking: Reported on04/03/2019) 60 capsule 0 ertapenem (INVANZ) in sodium chloride 0.9% (MB PLUS) 50 mL IVPB 1 g by Intravenous route every 24 hours. (Patient not taking: Reported on 04/03/2019) 42 Bag 0 oxyCODONE 5 MG Tab tablet Take 1-2 tabs po q 4-6 hours PRN pain. 60 tablet 0 No facility-administered medications prior to visit. Current Outpatient Medications: albuterol 108 (90 Base) MCG/ACT Aero Soln inhaler, Inhale 2 puffs., Disp: , Rfl: fentaNYL 50 MCG/HR Patch 72 HR 50 mcg/hr patch, , Disp: , Rfl: fluticasone-salmeterol (ADVAIR DISKUS) 100-50 MCG/DOSE Aerosol Powder, breath activated inhaler, Inhale 1 puff., Disp: , Rfl: folic acid 1 MG Tab tablet, Take 1 mg by mouth., Disp: , Rfl: gabapentin 800 MG Tab, , Disp: , Rfl: hydroxychloroquine 200 MG Tab tablet, Take by mouth., Disp: , Rfl: levothyroxine 125 MCG Tab tablet, , Disp: , Rfl: methocarbamol 750 MG Tab, , Disp: , Rfl: methotrexate 2.5 MG Tab tablet, Take 20 mg by mouth every 7 days. , Disp: , Rfl: montelukast 10 MG Tab tablet, Take 10 mg by mouth., Disp: , Rfl: omeprazole [address] capsule, , Disp: , Rfl: potassium chloride 20 MEQ Tab CR tablet, , Disp: , Rfl: predniSONE 5 MG Tab tablet, daily. , Disp: , Rfl: SPIRIVA HANDIHALER 18 MCG inhalation capsule, , Disp: , Rfl: therapeutic multivitamin-minerals Tab, Take 1 tablet by mouth daily., Disp: 30 tablet, Rfl: 0 warfarin 2.5 MG tablet, Take 2.5 mg by mouth., Disp: , Rfl: zolpidem 10 MG Tab tablet, Take 5 mg by mouth at bedtime. , Disp: , Rfl: acetaminophen 325 MG tablet, Take 2 tablets by mouth every 4 hours as needed for Mild Pain. (Patient not taking: Reported on 12/25/2019), Disp: 50 tablet, Rfl: 1 docusate 100 MG Cap capsule, Take 1 capsule by mouth 2 times daily. (Patient not taking: Reported on 04/03/2019), Disp: 60 capsule, Rfl: 0 ertapenem (INVANZ) in sodium chloride 0.9% (MB PLUS) 50 mL IVPB, 1 g by Intravenous route every 24 hours. (Patient not taking: Reported on 04/03/2019), Disp: 42 Bag, Rfl: 0 oxyCODONE 5 MG Tab tablet, Take 1-2 tabs po q 4-6 hours PRN pain., Disp: 60 tablet, Rfl: 0 Allergies: She is allergic to nitrofurantoin, amoxicillin, and sulfa antibiotics. * Wendy Lanier - 12/22/2021 10:00 AM EST Ortho Nurse Established Patient Intake Room#: 5 Date: 12/22/2021 10:40 AM Patient: Amna Seuqeira MR#: [id number] : 1955 Age: 66 y.o. 1yr R TKA Pt stated she is doing pretty good and states her pain depends on the weather. Pt denies any pain at the time of visit.0/10 on the pain scale. Referring Physician: Self, Self Insurance: Payor: MEDICARE MISC PFFS / Plan: MEDICARE MISC PFFS / Product Type: *No Product type* / Chief Complaint Patient presents with Right Knee - Follow-up Visit Vitals Temp 96.6 F (35.9 C) (Temporal) Ht 1.651 m (5' 5) Wt 89.4 kg (197 lb) BMI 32.78 kg/m Pain Recent Labs Lab Results Component Value Date CRP 10.8 (H) 12/24/2020 Lab Results Component Value Date SEDRATE 91 (H) 12/24/2020 Lab Results Component Value Date WBC 10.1 04/08/2020 HGB 12.3 04/08/2020 HCT 38.5 04/08/2020 PLATELET 344 04/08/2020 MCV 87.2 04/08/2020 History Past Medical History: Diagnosis Date Rheumatoid arteritis 1984 DVT (deep venous thrombosis) 1998 Fibromyalgia 2001 Family History: Her family history includes Breast Cancer in her sister; Cancer- Other in her brother; Coronary Artery Disease in her father and mother; Diabetes in her father; Stroke in her father. Social History: Her reports that she has been smoking cigarettes. She started smoking about 53 years ago. She has been smoking about 1.00 pack per day. She has never used smokeless tobacco. She reports that she does not drink alcohol and does not use drugs. Outpatient Medications Prior to Visit Medication Sig Dispense Refill albuterol 108 (90 Base) MCG/ACT Aero Soln inhaler Inhale 2 puffs. fentaNYL 50 MCG/HR Patch 72 HR 50 mcg/hr patch fluticasone-salmeterol (ADVAIR DISKUS) 100-50 MCG/DOSE Aerosol Powder, breath activated inhaler Inhale 1 puff. folic acid 1 MG Tab tablet Take 1 mg by mouth. gabapentin 800 MG Tab hydroxychloroquine 200 MG Tab tablet Take by mouth. levothyroxine 125 MCG Tab tablet methocarbamol 750 MG Tab methotrexate 2.5 MG Tab tablet Take 20 mg by mouth every 7 days. montelukast 10 MG Tab tablet Take 10 mg by mouth. omeprazole [address] capsule potassium chloride 20 MEQ Tab CR tablet predniSONE 5 MG Tab tablet daily. SPIRIVA HANDIHALER 18 MCG inhalation capsule therapeutic multivitamin-minerals Tab Take 1 tablet by mouth daily. 30 tablet 0 warfarin 2.5 MG tablet Take 2.5 mg by mouth. zolpidem 10 MG Tab tablet Take 5 mg by mouth at bedtime. acetaminophen 325 MG tablet Take 2 tablets by mouth every 4 hours as needed for Mild Pain. (Patientnot taking: Reported on 12/25/2019) 50 tablet 1 docusate 100 MG Cap capsule Take 1 capsule by mouth 2 times daily. (Patient not taking: Reported on04/03/2019) 60 capsule 0 ertapenem (INVANZ) in sodium chloride 0.9% (MB PLUS) 50 mL IVPB 1 g by Intravenous route every 24 hours. (Patient not taking: Reported on 04/03/2019) 42 Bag 0 oxyCODONE 5 MG Tab tablet Take 1-2 tabs po q 4-6 hours PRN pain. 60 tablet 0 No facility-administered medications prior to visit. Current Outpatient Medications: albuterol 108 (90 Base) MCG/ACT Aero Soln inhaler, Inhale 2 puffs., Disp: , Rfl: fentaNYL 50 MCG/HR Patch 72 HR 50 mcg/hr patch, , Disp: , Rfl: fluticasone-salmeterol (ADVAIR DISKUS) 100-50 MCG/DOSE Aerosol Powder, breath activated inhaler, Inhale 1 puff., Disp: , Rfl: folic acid 1 MG Tab tablet, Take 1 mg by mouth., Disp: , Rfl: gabapentin 800 MG Tab, , Disp: , Rfl: hydroxychloroquine 200 MG Tab tablet, Take by mouth., Disp: , Rfl: levothyroxine 125 MCG Tab tablet, , Disp: , Rfl: methocarbamol 750 MG Tab, , Disp: , Rfl: methotrexate 2.5 MG Tab tablet, Take 20 mg by mouth every 7 days. , Disp: , Rfl: montelukast 10 MG Tab tablet, Take 10 mg by mouth., Disp: , Rfl: omeprazole [address] capsule, , Disp: , Rfl: potassium chloride 20 MEQ Tab CR tablet, , Disp: , Rfl: predniSONE 5 MG Tab tablet, daily. , Disp: , Rfl: SPIRIVA HANDIHALER 18 MCG inhalation capsule, , Disp: , Rfl: therapeutic multivitamin-minerals Tab, Take 1 tablet by mouth daily., Disp: 30 tablet, Rfl: 0 warfarin 2.5 MG tablet, Take 2.5 mg by mouth., Disp: , Rfl: zolpidem 10 MG Tab tablet, Take 5 mg by mouth at bedtime. , Disp: , Rfl: acetaminophen 325 MG tablet, Take 2 tablets by mouth every 4 hours as needed for Mild Pain. (Patient not taking: Reported on 12/25/2019), Disp: 50 tablet, Rfl: 1 docusate 100 MG Cap capsule, Take 1 capsule by mouth 2 times daily. (Patient not taking: Reported on 04/03/2019), Disp: 60 capsule, Rfl: 0 ertapenem (INVANZ) in sodium chloride 0.9% (MB PLUS) 50 mL IVPB, 1 g by Intravenous route every 24 hours. (Patient not taking: Reported on 04/03/2019), Disp: 42 Bag, Rfl: 0 oxyCODONE 5 MG Tab tablet, Take 1-2 tabs po q 4-6 hours PRN pain., Disp: 60 tablet, Rfl: 0 Allergies: She is allergic to nitrofurantoin, amoxicillin, and sulfa antibiotics. [facility] ROBERT Alvarado [facility] Note Date/Time May 13, 2025 2:16 pm [facility] Medical Records Department [address] [place] [address] Anesthesia Postop Eval I 05/13/25 1300 MR#: [id number] Acct: [id number] Name: FABBYAMNA Pond Rep #:[id number] : 1955 70 From: Homero Alvarado PCP: Dr. Galindo Gutierrez MD Status:REG SD C Y Race: C Location: [place] [address] Anesthesia: Postop Eval I Current Vital Signs Temperature: 97.5 F Pulse Rate: 85 Blood Pressure: 106/60 Respiratory Rate: 18 Pulse Ox: 96 Oxygen Delivery Method: Nasal Cannula Oxygen Flow Rate (L/min): 2 Assessment Airway patent: Yes Spontaneous unlabored respirations: Yes Mental status: Awake nausea: No Vomiting: No Anesthesia Complication: No Fluid Hydration Crystalloid volume administer (ml): 300 Total IV fluid infused: 300 Progress Note Anesthesia document: Postop Eval 1 completed: Yes 05/13/25 1300 <Electronically signed by Homero Alvarado > Date _ Homero Alvarado Cosigner Signature: Date CC: ~ Signed [facility] Work Phone: Evaluation note* Diagnosis Hx of total knee arthroplasty, right- [facility] Diagnosis Acute pancreatitis, unspecified complication status, unspecified pancreatitis type- Primary documented in this encounter [facility] note* Diagnosis Acute pancreatitis, unspecified complication status, unspecified pancreatitis type documented in this encounter [facility] note* Diagnosis Liver lesion- Primary Other specified disorders of liver Diarrhea of presumed infectious origin documented in this encounter [facility] note* Diagnosis Liver lesion- Primary Other specified disorders of liver documented in this encounter [facility] note* Diagnosis Liver lesion Other specified disorders of liver documented in this encounter [facility] note* Diagnosis Liver lesion- Primary Other specified disorders of liver Bilious vomiting with nausea Gastric perforation (HCC) Chronic or unspecified gastric ulcer with perforation, without mention of obstruction documented in this encounter [facility] for [facility] (narrative)No reason for referral information availableWMansfield Hospital Work Phone: Reason for Referral Status Reason Specialty Diagnoses / Procedures Referre d By Contact Referred To Contact Félix Moulton APRN-ROCK PICKER [address] [place] [address] Status Reason Specialty Diagnoses / Procedures Referred By Contact Referred To Contact New Request Procedures ACTIVITY TOLERATED Félix Moulton APRN-CNP [address] [place] [address] Status Reason Specialty Diagnoses / Procedures Referre d By Contact Referred To Contact Closed Procedures ECG Jayro Marquez MD [address] [place] [address] Status Reason Specialty Diagnoses / Procedures Referre d By Contact Referred To Contact Katie Pizarro CNP [address] [place] [address] Status Reason Specialty Diagnoses / Procedures Referred By Contact Referred To Contact New Request Infectious Diseases Diagnoses 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, initial encounter Félix Moulton, [employer]-ROCK PICKER [address] [place] [address] Maximiliano Mayo MD [address] [place] [address] Status Reason Specialty Diagnoses / Procedures Referred By Contact Referred To Contact New Request Diagnoses History of revision of total replacement of right knee joint Procedures XR KNEE RIGHT 3 VIEWS Félix Moulton [employer] PICKER [address] [place] [address] Status Reason Specialty Diagnoses / Procedures Referred By Contact Referred To Contact New Request Diagnoses History of revision of total replacement of right knee joint Procedures XR KNEE RIGHT 3 VIEWS Galindo Zepeda MD [address] [place] [address] Status Reason Specialty Diagnoses / Procedures Referred By Contact Referred To Contact New Request Diagnoses History of revision of total replacement of right knee joint Procedures XR BONE LENGTH STUDY Galindo Zepeda MD [address] [place] [address] Status Reason Specialty Diagnoses / Procedures Referred By Contact Referred To Contact New Request Diagnoses History of total knee arthroplasty, right Procedures XR KNEE RIGHT 3 VIEWS Félix Moulton [employer]-R[employer] PICKER [address] [place], [place] [id number] Specialty Diagnoses / Procedures Referred By Contac t Referred To Contact Diagnoses Hx of total knee arthroplasty, right Procedures XR KNEE RIGHT 3 VIEWS Félix Moulton [employer] P[employer]ER [address] [place] [id number] Referral ID Status Reason Start Date Expiration Date V isits Requested Visits Authorized [id number] New Request 12/16/2021 01/10/2023 1 1 Specialty Diagnoses / Procedures Referred By Contac t Referred To Contact CT IMAGING Diagnoses Acute pancreatitis, unspecified complication status, unspecified pancreatitis type Procedures CT PANCREAS W IVCON CT ABDOMEN W/CONTRAST Aubree Ireland MD [address] [place] [address] Ct [id number] Referral ID Status Reason Start Date Expiration Date Visits Requested Visits Authorized [id number] Pending Review Auto-Generat ed Referral 08/01/2024 08/31/2025 1 1 Specialty Diagnoses / Procedures Referred By Contac t Referred To Contact CT IMAGING Diagnoses Liver lesion Procedures CT LIVER W IVCON CT ABDOMEN W/CONTRAST Aubree Ireland MD [address] [place] [address] Ct [id number] Referral ID Status Reason Start Date Expiration Date Visits Requested Visits Authorized [id number] Pending Review Auto-Generat ed Referral 4 09/19/2025 1 1 Specialty Diagnoses / Procedures Referred By Contac t Referred To Contact MR IMAGING Diagnoses Liver lesion Procedures MRI LIVER WO/W IVCON MRI ABDOMEN W/O & W/CONTRAST MATERIAL Aubree Ireland MD [address] [place] [address] Mr Imaging [id number] Referral ID Status Reason Start Date Expiration Date Visits Requested Visits Authorized [id number] New Request Auto-Generat ed Referral 09/19/2025 1 1 Specialty Diagnoses / Procedures Referred By Contac t Referred To Contact Gastroenterology Diagnoses Bilious vomiting with nausea Gastric perforation (HCC) Procedures CONSULT TO GASTROENTEROLOGY OFFICE/OUTPATIENT NEW HIGH MDM 60 MINUTES Billie Joseph PA-C [address] [place] [address] Referral ID Status Reason Start Date Expiration Date Visits Requested Visits Authorized [id number] Authorized PCP Requested Referral 11/18/2024 11/18/2025 1 1 Hospital Course * Juarez Katie L, ROCK PICKER - 12/17/2018 1:54 PM EST Discharge Summary Name: Amna Sequeira Age: 63 y.o. Birthday: 1955 Admit Date: 12/13/2018 5:14 PM Discharge Date: 12/17/2018 Brief Summary of Hospital Course: Joint infection/cellutiis (cat scratch) - Dr Zepeda following,I & D poly exchange done 12/14/2018 - PICC line, Dr. Mayo recommends invanz 1 gm daily x 6 weeks , weekly CBC, BMP and CRP- physical and occupational with HH, wound culture at previous facility grew pasturella no sensitivity was done, repeat cultures from I& D no growth thus far, she will follow up with Dr Mayo in 2 weeks, with weekly labs Hypokalemia- supplement and monitor RA (rheumatoid arthritis)- home medication, prednisone History of DVT (deep vein thrombosis)- chronically on coumadin - continue coumadin- INR 2.08 Fibromyalgia- home medication Tobacco abuse- nicoderm Anemia- chronic- iron studies, no signs or symptoms of active bleeding, continue to monitor Obesity: body mass index of 30.0-34.9 DVT/GIP- ppi and scd Discharge Diagnosis: Anesthetic joint infection, cellulitis,hypokalemia, rheumatoid arthritis,history of DVT Discharge Vital Signs: Blood pressure 110/61, pulse 61, temperature 98.3 F (36.8 C), temperature source Oral, resp. rate 16, height 1.676 m (5' 6), weight 85.7 kg (189 lb), SpO2 98 %. PHYSICAL EXAM: General: Patient resting comfortably. Awake. No acute distress. Cardiovascular: Regular rate and rhythm, without murmurs, rubs, or gallops. Respiratory: Bilateral Upper and Lower Lobes without wheezes, rales, or rhonchi Abdomen: Soft, rounded, non-tender. Bowel sounds present x4 quadrants. No rebound. No organomegaly or masses noted upon deep palpation. Extremities: No edema, clubbing or cyanosis, pulses palpable 2+ distally. Dressing dry and intact Skin: Warm, Dry, Intact. Discharge Labs: Lab Results Component Value Date WBC 7.3 12/17/2018 HGB 9.7 (L) 12/17/2018 HCT 29.0 (L) 12/17/2018 PLATELET 528 (H) 12/17/2018 MCV 85.1 12/17/2018 Lab Results Component Value Date SODIUM 140 12/17/2018 POTASSIUM 3.6 12/17/2018 CHLORIDE 111 (H) 12/17/2018 CO2 27 12/17/2018 BUN 12 12/17/2018 CREATSERUM 0.7 12/17/2018 GLUCOSE 82 12/17/2018 No results found for: ALT, TRANSFERASEA, AST, GGT, GAMMAGT, ALKPHOS, BILITOTAL, BILIDIRECT Discharge Medications: Medication List for when you go home STOP taking these medications ciprofloxacin 250 MG TABS Commonly known as: CIPRO nystatin 250433 UNIT/ML oral suspension Commonly known as: MYCOSTATIN oxyCODONE-acetaminophen 5-325 MG TABS per tablet Commonly known as: PERCOCET TAKE these medications acetaminophen 325 MG tablet Take 2 tablets by mouth every 4 hours as needed for Mild Pain. Commonly known as: TYLENOL ADVAIR DISKUS 100-50 MCG/DOSE AEPB inhaler Inhale 1 puff. Generic drug: fluticasone-salmeterol albuterol 108 (90 Base) MCG/ACT AERS inhaler Inhale 2 puffs. Commonly known as: PROVENTIL HFA, VENTOLIN HFA docusate 100 MG CAPS capsule Take 1 capsule by mouth 2 times daily. Commonly known as: COLACE ertapenem (INVANZ) in sodium chloride 0.9% (MB PLUS) 50 mL IVPB 1 g by Intravenous route every 24 hours. Start taking on: 12/18/2018 fentaNYL 50 MCG/HR PT72 50 mcg/hr patch Commonly known as: DURAGESIC folic acid 1 MG TABS tablet Take 1 mg by mouth. Commonly known as: FOLVITE gabapentin 800 MG TABS Commonly known as: NEURONTIN hydroxychloroquine 200 MG TABS tablet Take by mouth. Commonly known as: PLAQUENIL levothyroxine 125 MCG TABS tablet Commonly known as: SYNTHROID methocarbamol 750 MG TABS Commonly known as: ROBAXIN methotrexate 2.5 MG tablet Take 20 mg by mouth every 7 days. Commonly known as: TREXALL montelukast 10 MG TABS tablet Take 10 mg by mouth. Commonly known as: SINGULAIR omeprazole [address] capsule Commonly known as: PRILOSEC oxyCODONE 5 MG TABS tablet Take 1-2 tabs po q 4 hours PRN pain Commonly known as: ROXICODONE For diagnoses: Acute postoperative pain of right knee potassium chloride 20 MEQ tab ER tablet Commonly known as: K-DUR, KLOR-CON M20 predniSONE 5 MG TABS tablet daily. Commonly known as: DELTASONE SPIRIVA HANDIHALER 18 MCG inhalation capsule Generic drug: tiotropium therapeutic multivitamin-minerals TABS Take 1 tablet by mouth daily. warfarin 2.5 MG tablet Take 2.5 mg by mouth. Commonly known as: COUMADIN zolpidem 10 MG TABS tablet Take 10 mg by mouth. Commonly known as: AMBIEN Discharge Activity: Resume pre-hospital activities as tolerated. Discharge Diet: Resume pre-hospital diet as tolerated. Discharge Follow-up: Galindo Zepeda MD [address] [id number] In 2 weeks Maximiliano Mayo MD [address] [id number] In 2 weeks Discharge Disposition: Patient will be discharged in stable condition. Discharge Time: Including assessment, planning, and medication reconciliation was greater than 35 min. Katie Pizarro DNP completing Discharge Summary for Dr. Arreaga Please note Portions of this note utilized TrueLens dictation software, please excuse any typographical or grammatical Associated attestation - Han Arreaga DO - 12/17/2018 4:42 PM EST Patient seen and examined independently. Meds, labs, and radiographs reviewed. Lungs clear and heart tones regular on exam. ID input and meds adjusted. Denies CP/SOB. I agree with assessments and plan of care. documented in this encounter Discharge Instructions * Instructions* Katie Pizarro CNP - 12/17/2018 Weekly CBC, BMP, CRP - resulted to DR Mayo * Attachments The following attachments cannot be sent through Care Everywhere. * Ertapenem injection (Citizen Of [place]) * CELLULITIS SKIN INFECTION ([facility]) ([place]) * Cellulitis, Discharge Instructions for (Citizen Of [place]) documented in this encounter History of Present Illness * Katie Pizarro CNP - 12/17/2018 6:51 PM EST PICC line in atrial caval junction, okay to use, no adjustment needed. * Nicole Crockett - 12/17/2018 4:03 PM EST TRACI met with patient to see if she wanted to use [facility] for the IV antibiotics. Patient stated that she was agreeable to the co-pay but would like to know the company that was providing the medication through [facility]. CM told patient that she would have to get the information through them as CM was not sure. Patient stated that she spoke with her daughter and the last time she didn't haveto pay was because her daughter took care of it. She stated that she was going to have her daughter do the same this time. CM to notify nursing of patient acceptance. CM to follow. * Nicole Crockett - 12/17/2018 3:48 PM EST CM met with patient to verify that patients Home Health had been set up and that the co-pay amount on her medication was $3.40 per day. Patient asked how much it would cost her for the treatment. CM told her she would be on the antibiotic for 6 weeks and it would cost $142.80. Patient stated that the last time she had IV antibiotics they were free. CM explained to patient that they might have been a different type of antibiotics and patient stated they were the same and nothing has changed. CM told patient that she could stay in a facility to get her IV antibiotics and patient stated she would never go to a facility and she would live in her car where no one could find her before she didthat. Patient stated that she didn't have the funding to pay for the antibiotics and CM told her that it wouldn't need to be paid upfront and she could likely make payments. Patient asked CM to giveher 20 minutes and come back and she would have a decision. CM to follow. Nicole Hensley - 12/17/2018 2:24 PM EST TRACI received call from María from [facility]. María stated that they would not be able to use [facility] for the IV antibiotics because they have to bill [employer] directly. María stated that her office would send the order to [facility] and would call within the hour with the co-pay amounts for the patient. CM to follow. 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 SUBJECTIVE: No new symptoms or complaints PAIN RATIN/10 OBJECTIVE: Lab Results Component Value Date WBC 7.3 12/17/2018 HGB 9.7 (L) 12/17/2018 HGB 9.4 (L) 12/16/2018 HGB 9.5 (L) 12/15/2018 HCT 29.0 (L) 12/17/2018 HCT 28.0 (L) 12/16/2018 HCT 29.0 (L) 12/15/2018 PLATELET 528 (H) 12/17/2018 MCV 85.1 12/17/2018 Lab Results Component Value Date SODIUM 140 12/17/2018 POTASSIUM 3.6 12/17/2018 CHLORIDE 111 (H) 12/17/2018 CO2 27 12/17/2018 BUN 12 12/17/2018 BUN 15 12/16/2018 BUN 11 12/15/2018 CREATSERUM 0.7 12/17/2018 CREATSERUM 0.7 12/16/2018 CREATSERUM 0.7 12/15/2018 GLUCOSE 82 12/17/2018 Lab Results Component Value Date INR 2.08 (H) 12/17/2018 INR 1.81 (H) 12/16/2018 INR 1.18 (H) 12/15/2018 PT 22.9 (H) 12/17/2018 PT 20.6 (H) 12/16/2018 PT 14.9 (H) 12/15/2018 Vital Signs: Vitals: 12/17/18 1135 BP: 110/61 Pulse: 61 Resp: 16 Temp: 98.3 F (36.8 C) Patient is alert and oriented times three. Abdomen: Soft, non-tender without organomegaly and bowel sounds are active Vascular: Dorsalis pedis/posterior tibial pulses RIGHT/LEFT/BILATERAL: Bilateral NORMAL / ABNORMAL (RESULT): Normal Neuro: Intact/deficit: intact to light touch Wound Appearance: DESCRIPTION; WOUND: incision Erythema: PRESENT OR ABSENT: absent Drainage noneo Dressing: Clean/dry/intact preevena DVT Screening Exam: Calves soft/non-tender Raúl hose: PRESENT OR ABSENT: present Foot pumps/ SCD's: PRESENT OR ABSENT: present Hemovac Drain Output: na mL/last shift Physical Therapy: ROM: 2-92 degrees Gait Distance: amb in shankar. Feet: ASSESSMENT: sp r knee single stage revision PJI pod 5 PLAN: 1. PT/OT 2. IV antibiotics- dr mayo consult pending 3. DVT prophylaxis- INR >2 4. Discharge planning DISCHARGE PLANNING: plans; post hospital: SEE SS NOTES * Nicole Crockett - 12/17/2018 1:29 PM EST CM made a call to [facility]. [facility] stated that they had received the referral, but that they were going to send it to their [facility] office as the patient lives in [place]. CM asked for a return call as soon as possible due to patients possible discharge this afternoon. CM to follow. * Nicole Crockett - 12/17/2018 12:53 PM EST CM met with patient this date to discuss discharge plans. Patient stated she was open to using homehealth services in the home for IV antibiotics. She stated that she had used [facility] and would like to use them again. Patient reviewed and signed home health list for [facility]. CM to make referral at this time and also to fax patient information and prescription for IV antibiotics to [facility]. CM to follow. * Viviana Estevez [facility],PharmD - 12/17/2018 11:50 AM EST Pharmacy to Dose - Warfarin Note PATIENT: Amna Sequeira Room/Bed: [facility]/ Desired INR range: 2-3 Indication(s): DVT prophylaxis Medications: The following drug interactions have been identified: Post op tylenol, post op ketorolac, lovenox. Current Diet Status: Regular Recent bleeding/bleeding event: none known of Last labs: INR Date Value Ref Range Status 12/17/2018 2.08 (H) 0.88 - 1.12 Final Comment: 2.0-3.0 THERAPEUTIC RANGE 2.5-3.5 PROSTHETIC VALVE RANGE ? ALBUMIN Date Value Ref Range Status 12/17/2018 2.1 (L) 3.5 - 5.0 G/dl Final ? Plan: An order was placed for warfarin 2.5 mg today based on therapeutic INR. A Pharmacist will continue to follow and make dose changes as clinically appropriate. Please contact pharmacy if there are any questions. Signed: Viviana Estevez RPh,PharmD, Pharmacist Phone: [phone] Date/Time: 12/17/2018 11:51 AM * Tracy Guzman LSW - 12/17/2018 11:28 AM EST Informed by FANNIE Wilson that patient may need IV antibiotics. CM will continue to follow. * Tracy Guzman LSW - 12/17/2018 9:20 AM EST Met with patient this date to discuss discharge plans. Patient states that her goal upon discharge is home with her daughter and no additional needs. States her daughter helps her with anything she needs. States her daughter does most of the cooking but she helps with cleaning. States that she does not have home health and does not need it. Provided mycontact information and advised patient to call me if any new needs arise. CM to follow and assist in discharge planning. * Tracy Guzman LSW - 12/17/2018 9:16 AM EST 12/17/18 0962 Information Source Information Source patient Contact Information Social Work Contact Name JUAN M Cooney [employer] Insecurity In the past 12 months, were you worried about food running out before you are able to get more? No In the past 12 months, has food run out, and you didn't have money to get more? No Living Environment Lives With child(rosy), adult;grandchild(rosy) Living Arrangements house (Two story home) Provides Primary Care For no one Primary Care Provided By self;child(rosy) (Patient states she lives with her daughter) Support System Immediate family Able to Return to Prior Arrangements yes Employment/Financial Employed? Retired Employment/Financial Concerns no Source Of Income pension/halfway Financial Concerns none Cognitive/Perceptual/Developmental Current Mental Status/Cognitive Functioning no deficits noted Recent Changes in Mental Status/Cognitive Functioning no changes Emotional/Psychological Mood congruent to situation Verbal Skills no deficits noted Current Interpersonal Conduct/Behavior appropriate to situation Referral Information Referral Source physician * Katie Pizarro CNP - 12/16/2018 9:40 AM EST [facility] LOS: 3 days Principal Problem: Cellulitis Active Problems: Obesity: body mass index of 30.0-34.9 Joint infection Hypokalemia RA (rheumatoid arthritis) History of DVT (deep vein thrombosis) Fibromyalgia Cellulitis of skin with lymphangitis SUBJECTIVE: Patient resting in chair, Denies fever, chills, chest pain or sob. Is eating and drinking well. Shecomplains of pain to right knee, worse after therapy but states it's manageable with oral medications. PHYSICAL EXAMINATION: Blood pressure 95/56, pulse 52, temperature 98.6 F (37 C), temperature source Oral, resp. rate 16, height 1.676 m (5' 6), weight 85.7 kg (189 lb), SpO2 97 %. Gen: Comfortable in bed, no signs of distress HEENT: Normocephalic, atraumatic, Moist oral mucous membranes Neck: supple, Lungs: Clear to auscultation BL, anterior and posterior, without rales, rhonchi or wheezing Heart: Regular in rate and rhythm. Without murmur, rub or gallop Abd: Soft and non-distended. Non tender BSPx 4 Skin: No obvious rashes or cyanosis.dressing dry and intact Neuro: Grossly non-focal examination. Intake and Output: Intake/Output Summary (Last 24 hours) at 12/16/2018 0975 Last data filed at 12/16/2018 0815 Gross per 24 hour Intake 1283 ml Output 700 ml Net 583 ml Daily Weight: Wt Readings from Last 3 Encounters: 12/13/18 85.7 kg (189 lb) 01/10/18 96.2 kg (212 lb) CURRENT MEDICATIONS: Current Facility-Administered Medications Medication Dose Route Frequency Provider Last Rate Last Dose acetaminophen (TYLENOL) tablet 1,000 mg 1,000 mg Oral Q6HNS DESIREE Appiah 1,000 mg at 12/16/18 0339 bisacodyl (DULCOLAX) suppository 10 mg 10 mg Rectal Daily PRN DESIREE Appiah docusate (COLACE) capsule 100 mg 100 mg Oral BID DESIREE Appiah 100 mg at 12/15/18 1748 enOXAParin (LOVENOX) injection 40 mg 40 mg Subcutaneous Daily MANJINDER Appiah CNP 40 mg at 12/15/18 0852 fentaNYL (DURAGESIC) 50 mcg/hr patch 1 patch 1 patch Transdermal Q72H Katie Pizarro CNP 1 patch at 12/13/18 205 Fluticasone-Salmeterol (ADVAIR HFA) 115-21 MCG/ACT inhaler 2 puff 2 puff Inhalation BID Katie Pizarro CNP 2 puff at 12/16/18 0719 folic acid (FOLVITE) tablet 1 mg 1 mg Oral Daily Katie Pizarro CNP 1 mg at 12/15/18 0852 HYDROmorphone (DILAUDID) injection 0.5 mg 0.5 mg Intravenous Q2H PRN DESIREE Appiah ipratropium-albuterol (DUONEB) 0.5-2.5 (3) MG/3ML nebulizer solution 3 mL 3 mL Nebulization Q4H PRLizabeth Pizarro CNP ketorolac (TORADOL) injection 15 mg 15 mg Intravenous Q6HNS DESIREE Appiah 15 mg at 12/16/18 0339 levothyroxine (SYNTHROID) tablet 125 mcg 125 mcg Oral Before BKF Katie Pizarro CNP 125 mcg at 12/16/18 0515 magnesium sulfate 2 g/50 mL in sterile water premix IVPB 2 g 50 mL (total volume) 2 g Intravenous Daily PRN Katie Pizarro CNP meropenem (MERREM) 0.5 g in sodium chloride 0.9%, with overfill 70 mL (total volume) IVPB 500 mg Intravenous Q8H Katie Pizarro CNP 0.5 g at 12/16/18 0515 methocarbamol (ROBAXIN) tablet 1,500 mg 1,500 mg Oral BID PRN Katie Pizarro CNP 1,500 mg at 12/15/18 2303 montelukast (SINGULAIR) tablet 10 mg 10 mg Oral QHS Katie Pizarro CNP 10 mg at 12/15/18 2034 ondansetron 4mg/2ml (ZOFRAN) injection 4 mg 4 mg Intravenous Q4H PRN DESIREE Appiah oxyCODONE (ROXICODONE) tablet 5-10 mg 5-10 mg Oral Q4H PRN DESIREE Appiah 10 mg at 12/16/18 0353 pantoprazole (PROTONIX) tablet DR 40 mg 40 mg Oral Daily Katie Pizarro CNP 40 mg at 12/15/18 0852 potassium chloride (K-DUR, KLOR-CON M20) tablet ER 40 mEq 40 mEq Oral Daily PRN Katie Pizarro CNP Or potassium chloride 40 mEq in 0.9% sodium chloride 500 ml IVPB 40 mEq Intravenous Daily PRN Katie Pizarro CNP 40 mEq at 12/14/18 1015 predniSONE (DELTASONE) tablet 5 mg 5 mg Oral Daily Katie Pizarro CNP senna-docusate (SENOKOT-S) 8.6-50 MG per tablet 2 tablet 2 tablet Oral BID PRN DESIREE Appiah sodium chloride 0.9% IV solution 100 mL/hr Intravenous Continuous DESIREE Appiah Stopped at 12/15/18 0058 sodium phosphate w/sodium biphosphate (FLEETS) enema 1 enema 1 enema Rectal Daily PRN DESIREE Appiah tiotropium (SPIRIVA) inhalation capsule 18 mcg 18 mcg Inhalation Daily Katie Pizarro CNP 18 mcg at 12/16/18 0719 warfarin (COUMADIN) tablet 2.5 mg 2.5 mg Oral Daily early evening DESIREE Appiah zolpidem (AMBIEN) tablet 10 mg 10 mg Oral QHS PRN Katie Pizarro CNP 10 mg at 12/15/18 2303 [facility]: CBC Lab Results Component Value Date/Time WBC 9.6 12/16/2018 05:15 AM WBC 12.8 (H) 12/15/2018 05:08 AM WBC 8.3 12/14/2018 05:34 AM HGB 9.4 (L) 12/16/2018 05:15 AM HGB 9.5 (L) 12/15/2018 05:08 AM HGB 10.7 (L) 12/14/2018 05:34 AM HCT 28.0 (L) 12/16/2018 05:15 AM HCT 29.0 (L) 12/15/2018 05:08 AM HCT 32.0 (L) 12/14/2018 05:34 AM PLATELET 431 (H) 12/16/2018 05:15 AM PLATELET 404 (H) 12/15/2018 05:08 AM PLATELET 374 12/14/2018 05:34 AM Chemistry Lab Results Component Value Date/Time GLUCOSE 87 12/16/2018 05:15 AM GLUCOSE 110 (H) 12/15/2018 05:08 AM GLUCOSE 94 12/14/2018 05:34 AM BUN 15 12/16/2018 05:15 AM BUN 11 12/15/2018 05:08 AM BUN 7 12/14/2018 05:34 AM CREATSERUM 0.7 12/16/2018 05:15 AM CREATSERUM 0.7 12/15/2018 05:08 AM CREATSERUM 0.6 12/14/2018 05:34 AM SODIUM 138 12/16/2018 05:15 AM SODIUM 136 12/15/2018 05:08 AM SODIUM 139 12/14/2018 05:34 AM POTASSIUM 3.4 (L) 12/16/2018 05:15 AM POTASSIUM 4.4 12/15/2018 05:08 AM POTASSIUM 3.1 (L) 12/14/2018 05:34 AM CHLORIDE 108 (H) 12/16/2018 05:15 AM CHLORIDE 107 12/15/2018 05:08 AM CHLORIDE 104 12/14/2018 05:34 AM CO2 23 12/16/2018 05:15 AM CO2 21 (L) 12/15/2018 05:08 AM CO2 25 12/14/2018 05:34 AM ALBUMIN 1.9 (L) 12/16/2018 05:15 AM ALBUMIN 2.0 (L) 12/15/2018 05:08 AM ALBUMIN 2.2 (L) 12/14/2018 05:34 AM CALCIUM 7.7 (L) 12/16/2018 05:15 AM CALCIUM 7.6 (L) 12/15/2018 05:08 AM CALCIUM 8.1 (L) 12/14/2018 05:34 AM PHOSPHORUS 2.9 12/16/2018 05:15 AM PHOSPHORUS 4.2 12/15/2018 05:08 AM PHOSPHORUS 4.1 12/14/2018 05:34 AM COAG Lab Results Component Value Date/Time PT 20.6 (H) 12/16/2018 05:15 AM PT 14.9 (H) 12/15/2018 05:08 AM PT 14.0 12/14/2018 05:34 AM INR 1.81 (H) 12/16/2018 05:15 AM INR 1.18 (H) 12/15/2018 05:08 AM INR 1.09 12/14/2018 05:34 AM Was on clindamycin IV 12/09-12/13 at [facility] changed to meropenem on 12/13 ASSESSMENT & PLAN: Principal Problem: Cellulitis- meropenem, monitor labs Active Problems: Joint infection- Dr Zepeda following,I & D poly exchange done 12/14/2018 - will consult ID for ATB recommendations, may need PICC line, physical and occupational therapy - wound culture at previous facility grew pasturella, I& D cultures pending, Hypokalemia- supplement and monitor RA (rheumatoid arthritis)- home medication, prednisone History of DVT (deep vein thrombosis)- chronically on coumadin - continue coumadin Fibromyalgia- home medication Tobacco abuse- nicoderm Anemia- chronic- iron studies, no signs or symptoms of active bleeding, continue to monitor Obesity: body mass index of 30.0-34.9 DVT/GIP- ppi and scd Full Code This plan of care has been initiated in collaboration with the attending physician, Dr. Arreaga Please note Portions of this note utilized TrueLens dictation software, please excuse any typographical or grammatical errors. Associated attestation - Han Arreaga DO - 12/16/2018 3:55 PM EST Patient seen and examined independently. Meds, labs, and radiographs reviewed. Lungs diminished and heart tones regular on exam. CX NEG TD. Cont current atbx. Await ID input. Denies CP/SOB. I agree with assessments and plan of care. * Carline Dillon RPh,PharmD - 12/16/2018 8:53 AM EST Pharmacy to Dose - Warfarin Note PATIENT: Amna Sequeira Room/Bed: [facility] Desired INR range: 2-3 Indication(s): Prophylactic Use of Warfarin for VTE Medications: No drug interactions were identified based on the patient's current therapy. Current Diet Status: Regular Recent bleeding/bleeding event: N/A Last labs: INR Date Value Ref Range Status 12/16/2018 1.81 (H) 0.88 - 1.12 Final Comment: 2.0-3.0 THERAPEUTIC RANGE 2.5-3.5 PROSTHETIC VALVE RANGE ? ALBUMIN Date Value Ref Range Status 12/16/2018 1.9 (L) 3.5 - 5.0 G/dl Final ? Plan: An order was placed for 2.5mg based on home dosing regimen of 2.5mg daily. A Pharmacist will continue to follow and make dose changes as clinically appropriate. Please contact pharmacy if there are any questions. Signed: Carline Dillon RPh,PharmD, Pharmacist Phone: [phone] Date/Time: 12/16/2018 8:54 AM * Nelsy Rodriguez, OT - 12/15/2018 4:24 PM EST 12/15/18 2100 General Information RN Approved Intervention as tolerated Admitting Diagnosis cellulitis Surgical Procedure TKA revision, ID + polyswap for acute PJI Past Surgical History Past Surgical History: Procedure Laterality Date KNEE REPLACEMENT Right 2018 THYROIDECTOMY TOTAL Bilateral 2013 KNEE REPLACEMENT Right 2012 HIP REPLACEMENT Right 2011 HYSTERECTOMY Bilateral 1993 REMOVAL CATARACT (PEM) Past Medical History Past Medical History: Diagnosis Date DVT (deep venous thrombosis) 1998 Fibromyalgia 2001 Rheumatoid arteritis 1985 Existing Precautions/Restrictions fall Previous Level of Function Bed Mobility/Transfers independent Bathing needs device (supervision) Upper Body Dressing independent Lower Body Dressing independent Grooming independent Toileting independent Eating independent Home Management Skills needs assist General Pain Documentation (Adult, OB, Peds) Presence of Pain complains of pain/discomfort Pain Location knee, right Pain Management Interventions medication given, see MAR Select Pain Scale DVPRS (Defense and Veterans Pain Rating Scale) (Adult- Cognitively Intact) DVPRS (Defense and Veterans Pain Rating Scale) DVPRS: Rest 9- severe pain DVPRS: Activity 9- severe pain Home Setting Residence Home Lives With child(rosy);other relative(s) First floor bed/bathroom yes;tub shower Second floor bed/bathroom (Pt doest not go to second floor) Number of Stairs to Enter Home 0 Equipment Available straight cane;wheeled walker;shower chair;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;hand held shower hose Cognitive Status Examination Orientation Status (Cognition) oriented x 4 Level of Consciousness alert Able to Follow Commands (Communication) WNL Personal Safety and Judgment intact Vision (check all that apply) Vision prescription glasses Hearing Hearing no gross deficits noted Range of Motion (ROM) Range of Motion Examination bilateral upper extremity ROM was WNL Manual Muscle Testing (MMT) Dominant Hand right Hand Wood Model Maker, Right strong Hand Wood Model Maker, Left strong Manual Muscle Testing Results no strength deficits were identified Bed Mobility Skill: Supine to Sit, Rehab Eval Level of [place]: Supine/Sit contact guard Transfer Skill: Sit to Stand, Rehab Eval Level of [place]: Sit/Stand supervision Weight-Bearing Restrictions: Sit/Stand weight-bearing as tolerated Transfer Skill: Stand to Sit, Rehab Eval Level of [place]: Stand/Sit supervision Bathing Level of [place] minimum assist (75% patients effort) (per report prior to OT arrival) Lower Body Dressing Level of [place] dependent (less than 25% patients effort) General Therapy Interventions Planned Therapy Interventions (OT Eval) ADL retraining;balance training;strengthening;transfer training Acute OT AMPA Acute OT [facility] Assessments Daily Activity Inpatient Short Form PRIOR LEVEL AM-PAC Activity Inpatient Short Form Putting on/Taking Off Lower Body Clothing 4 - No Assistance Bathing 4 - No Assistance Toileting 4 - No Assistance Putting on/Taking Off Upper Body Clothing 4 - No Assistance Grooming 4 - No Assistance Eating 4 - No Assistance PRIOR LEVEL AM-PAC Activity Raw Score 24 PRIOR LEVEL AM-PAC Activity Functional Limitation/Modifier 0.00% Prior Functional Impairment in Daily Activity - CURRENT AM-[facility] Daily Activity Inpatient Short Form Putting on/Taking Off Lower Body Clothing 1 - Total Assistance Bathing 3 - A Little Assistance Toileting 3 - A Little Assistance Putting on/Taking Off Upper Body Clothing 4 - No Assistance Grooming 4 - No Assistance Eating 4 - No Assistance CURRENT AM-PAC Activity Raw Score 19 CURRENT AM-PAC Activity Functional Limitation/Modifier 42.80% Currently Impaired in Daily Activity - CK PROJECTED AM-PAC Activity Raw Score 22 PROJECTED AM-PAC Activity Functional Limitation/Modifier 25.80% - CJ Assessment Assessment Narrative OT evaluation complete; Pt reprots prior to arrival Pt had sat in chair for 4 hours and had showered, Min A. Pt demo ability to complete transfer supine to sit edge of bed, and sit to stand at supervision. Pt with good safety awareness. Pt demo BUE ROM and strength WNL. Pt educated on exercises to complete while in bed or in chair through out the day. Prior to standing, OT donned socks. Pt reports daughter has assisted with compression socks in the past and will not need training/recommendation. OT discussed use of sock aid for Pt to don socks of sock aid, Pt reports willtypically have family complete, willing to trial at next session. At baseline, daughter provided sup ervision for showering. Pt would benefit from skilled services to address UE endurance, standing tolerance, continued transfer review, and address Ind. with ADLs. Clinical Impression Patient Instruction Role of OT Rehab Potential (OT Eval) good, to achieve stated therapy goals Therapy Frequency 7 times a week OT Therapy Completed Yes Initial Evaluation Completed yes Today's Treatment Included OT evaluation, review of HEP Continue care plan yes Goals Goals For Discharge Pt will return home, all transfers [place] Goals Goal 1 Pt will complete h/g standing at sink to challenge standing balance and duration, supervision Goal 2 Pt will bathe self, supervision. Goal 3 Pt will trial use of sock aid/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 to increase ability to participate in LB dressing, Heath Goal 4 Pt will be Ind with UE HEP Therapist Recommendations At Discharge Recommendations OT Services not recommended at Discharge Plan Plan Narrative edu on use of sock aid and 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 Therapist Information License # [id number] * Hudson Diaz, PT - 12/15/2018 12:14 PM EST 12/15/18 1140 General Pain Documentation (Adult, OB, Peds) Presence of Pain complains of pain/discomfort Pain Location knee, right Pain Management Interventions medication given, see MAR Select Pain Scale DVPRS (Defense and Veterans Pain Rating Scale) (Adult- Cognitively Intact) DVPRS (Defense and Veterans Pain Rating Scale) DVPRS: Rest 7- severe pain DVPRS: Activity 7- severe pain General Pain Descriptors Pain Quality spasm ROM: Knee, Rehab Eval Right Knee Extension/Flexion AROM other (see comments) (Guarded 10 - 65 AAROM. Pain limited increase ROM) Left Knee Extension/Flexion AROM WNL (-4 -0 - 125 ) Manual Muscle Testing (MMT) Manual Muscle Testing Results bilateral upper extremity MMT was WFL;LLE MMT was WFL (Right: quad +2/5, H.S. +2/5, hip flex -3/5) Bed Mobility Skill: Supine to Sit, Rehab Eval Level of [place]: Supine/Sit minimum assist (75% patients effort) Physical Assist/Nonphysical Assist: Supine/Sit 1 person assist Transfer Skill: Sit To Stand, Rehab Eval [place] (Sit-Stand Transfers) minimum assist (75% patient effort) Physical Assist/Nonphysical Assist: Sit/Stand 1 person assist Weight-Bearing Restrictions: Sit/Stand weight-bearing as tolerated Assistive Device For Transfer: Sit/Stand 2 wheeled walker Gait Skills, PT Eval Level of [place]: Gait contact guard Physical Assist/Nonphysical Assist: Gait 1 person assist Weight-Bearing Restrictions: Gait weight-bearing as tolerated Assistive Device For Transfer: Gait 2 wheeled walker Gait Distance 15 feet Gait Analysis, PT Eval Gait Pattern Used swing-to gait Gait Deviations Identified (Gait) right;antalgic;decreased karina;decreased gait speed;decreased step length;decreased stride length;decreased weight shifting Impairments Contributing To Gait Deviations impaired balance;impaired postural control;decreased strength;decreased ROM Stair Negotiation Level of [place]: Stair Negotiation unable to perform General Interventions Planned Therapy Interventions bed mobility training;endurance;gait training;neuromuscular re-education;stretching;strengthening;ROM;transfer training Additional Comments Patient shows decrease ROM / Strength, with decreased ability to walk and transfer following right TKA revision PRIOR LEVEL [facility] Basic Mobility Inpatient Short Form Turning over in bed 4 - No Assistance Sitting/standing from chair 4 - No Assistance Moving from lying on back to sitting 4 - No Assistance Moving to and from bed to chair 4 - No Assistance Walk in hospital room 4 - No Assistance Climbing 3-5 steps with a railing 4 - No Assistance PRIOR LEVEL [facility] Mobility Raw Score 24 PRIOR LEVEL [facility] Mobility Functional Limitation/Modifier 0.00% Prior Functional Impairment in Basic Mobility - CH CURRENT [facility] Basic Mobility Inpatient Short Form Turning over in bed 3 - A Little Assistance Sitting/standing from chair 3 - A Little Assistance Moving from lying on back to sitting 3 - A Little Assistance Moving to and from bed to chair 3 - A Little Assistance Walk in hospital room 3 - A Little Assistance Climbing 3-5 steps with a railing 1 - Total Assistance CURRENT [facility] Mobility Raw Score 16 CURRENT [facility] Mobility Functional Limitation/Modifier 54.16% Currently Impaired in Basic Mobility - [facility] Assessment Assessment Narrative Patient shows decreased ROM and strength following right knee revision, and she will benefit from PT to improve, gait, ROM, strength, and transfers Discharge Recommendations Home with home health Clinical Impression Criteria for Skilled Therapeutic Interventions Met (PT Eval) yes;treatment indicated Impairments Found (PT Eval) gait, locomotion, and balance;motor function;muscle performance;ROM (range of motion) Rehab Potential (PT Eval) good, to achieve stated therapy goals Therapy Frequency 2 times a day PT Therapy Completed Yes PT Therapies Still to Complete 13 Initial Evaluation Completed yes Continue care plan yes Today's Treatment Included PT IE, HEP instructions, gait training, tranfer trianing Goals Goals For Discharge return home with proper level os support Goals Goal 1 I with supine HEP to improve ROM and strength of right LE Goal 2 Patient will walk 50 feet or greater with LRAD and mod I. Goal 3 Patient will show AAROM of right knee from 0 - 90 Goal 4 Patient will complete all basic transfers with mod I. Therapist Recommendations At Discharge Recommendations PT Services recommended at Discharge Plan Plan Narrative Pt will progress gait and ther ex with next PT session Therapist Information License # [id number] Hudson Diaz, PT 12/15/2018 12:14 PM * Katie Pizarro CNP - 12/15/2018 10:02 AM EST [facility] LOS: 2 days Principal Problem: Cellulitis Active Problems: Obesity: body mass index of 30.0-34.9 Joint infection Hypokalemia RA (rheumatoid arthritis) History of DVT (deep vein thrombosis) Fibromyalgia Cellulitis of skin with lymphangitis SUBJECTIVE: Patient resting in chair, Denies fever, chills, chest pain or sob. Is eating and drinking well.he complains of postoperative pain but states it's manageable with oral medications. PHYSICAL EXAMINATION: Blood pressure 97/64, pulse 62, temperature 97.8 F (36.6 C), temperature source Oral, resp. rate 16, height 1.676 m (5' 6), weight 85.7 kg (189 lb), SpO2 97 %. Gen: Comfortable in bed, no signs of distress HEENT: Normocephalic, atraumatic, Moist oral mucous membranes Neck: supple, Lungs: Clear to auscultation BL, anterior and posterior, without rales, rhonchi or wheezing Heart: Regular in rate and rhythm. Without murmur, rub or gallop Abd: Soft and non-distended. Non tender BSPx 4 Skin: No obvious rashes or cyanosis.dressing dry and intact Neuro: Grossly non-focal examination. Intake and Output: Intake/Output Summary (Last 24 hours) at 12/15/2018 1323 Last data filed at 12/15/2018 1200 Gross per 24 hour Intake 240 ml Output 860 ml Net -620 ml Daily Weight: Wt Readings from Last 3 Encounters: 12/13/18 85.7 kg (189 lb) 01/10/18 96.2 kg (212 lb) CURRENT MEDICATIONS: Current Facility-Administered Medications Medication Dose Route Frequency Provider Last Rate Last Dose acetaminophen (TYLENOL) tablet 1,000 mg 1,000 mg Oral Q6HNS DESIREE Appiah 1,000 mg at 12/15/18 0633 bisacodyl (DULCOLAX) suppository 10 mg 10 mg Rectal Daily PRN DESIREE Appiah docusate (COLACE) capsule 100 mg 100 mg Oral BID DESIREE Appiah 100 mg at 12/15/18 0852 enOXAParin (LOVENOX) injection 40 mg 40 mg Subcutaneous Daily MANJINDER Appiah CNP 40 mg at 12/15/18 0852 fentaNYL (DURAGESIC) 50 mcg/hr patch 1 patch 1 patch Transdermal Q72H Katie Pizarro CNP 1 patch at 12/13/182050 Fluticasone-Salmeterol (ADVAIR HFA) 115-21 MCG/ACT inhaler 2 puff 2 puff Inhalation BID Katie Pizarro CNP 2 puff at 12/15/18 0727 folic acid (FOLVITE) tablet 1 mg 1 mg Oral Daily Katie Pizarro CNP 1 mg at 12/15/18 0852 HYDROmorphone (DILAUDID) injection 0.5 mg 0.5 mg Intravenous Q2H PRN DESIREE Appiah ipratropium-albuterol (DUONEB) 0.5-2.5 (3) MG/3ML nebulizer solution 3 mL 3 mL Nebulization Q4H PRLizabeth Pizarro CNP ketorolac (TORADOL) injection 15 mg 15 mg Intravenous Q6HNS DESIREE Appiah 15 mg at 12/15/18 0852 levothyroxine (SYNTHROID) tablet 125 mcg 125 mcg Oral Before BKF Katie Pizarro CNP 125 mcg at 12/15/18 0633 magnesium sulfate 2 g/50 mL in sterile water premix IVPB 2 g 50 mL (total volume) 2 g Intravenous Daily PRN Katie Pizarro CNP meropenem (MERREM) 0.5 g in sodium chloride 0.9%, with overfill 70 mL (total volume) IVPB 500 mg Intravenous Q8H Katie Pizarro CNP 0.5 g at 12/15/18 0633 methocarbamol (ROBAXIN) tablet 1,500 mg 1,500 mg Oral BID PRN Katie Pizarro CNP montelukast (SINGULAIR) tablet 10 mg 10 mg Oral QHS Katie Pizarro CNP 10 mg at 12/14/187 ondansetron 4mg/2ml (ZOFRAN) injection 4 mg 4 mg Intravenous Q4H PRN Félix Moulton APRN-FANNIE oxyCODONE (ROXICODONE) tablet 5-10 mg 5-10 mg Oral Q4H PRN DESIREE Appiah 10 mg at 12/15/18 1250 pantoprazole (PROTONIX) tablet DR 40 mg 40 mg Oral Daily Katie Pizarro CNP 40 mg at 12/15/18 0852 potassium chloride (K-DUR, KLOR-CON M20) tablet ER 40 mEq 40 mEq Oral Daily PRN Katie Pizarro CNP Or potassium chloride 40 mEq in 0.9% sodium chloride 500 ml IVPB 40 mEq Intravenous Daily PRN Katie Pizarro CNP 40 mEq at 12/14/18 1015 [START ON 12/16/2018] predniSONE (DELTASONE) tablet 5 mg 5 mg Oral Daily Katie Pizarro CNP senna-docusate (SENOKOT-S) 8.6-50 MG per tablet 2 tablet 2 tablet Oral BID PRN DESIREE Appiah sodium chloride 0.9% IV solution 100 mL/hr Intravenous Continuous DESIREE Appiah Stopped at 12/15/18 0058 sodium phosphate w/sodium biphosphate (FLEETS) enema 1 enema 1 enema Rectal Daily PRN DESIREE Appiah tiotropium (SPIRIVA) inhalation capsule 18 mcg 18 mcg Inhalation Daily Katie Pizarro CNP 18 mcg at 12/15/18 0727 warfarin (COUMADIN) tablet 5 mg 5 mg Oral Daily early evening DESIREE Appiah zolpidem (AMBIEN) tablet 10 mg 10 mg Oral QHS PRN Katie Pizarro CNP 10 mg at 12/15/18 0100 [facility]: CBC Lab Results Component Value Date/Time WBC 12.8 (H) 12/15/2018 05:08 AM WBC 8.3 12/14/2018 05:34 AM HGB 9.5 (L) 12/15/2018 05:08 AM HGB 10.7 (L) 12/14/2018 05:34 AM HCT 29.0 (L) 12/15/2018 05:08 AM HCT 32.0 (L) 12/14/2018 05:34 AM PLATELET 404 (H) 12/15/2018 05:08 AM PLATELET 374 12/14/2018 05:34 AM Chemistry Lab Results Component Value Date/Time GLUCOSE 110 (H) 12/15/2018 05:08 AM GLUCOSE 94 12/14/2018 05:34 AM BUN 11 12/15/2018 05:08 AM BUN 7 12/14/2018 05:34 AM CREATSERUM 0.7 12/15/2018 05:08 AM CREATSERUM 0.6 12/14/2018 05:34 AM SODIUM 136 12/15/2018 05:08 AM SODIUM 139 12/14/2018 05:34 AM POTASSIUM 4.4 12/15/2018 05:08 AM POTASSIUM 3.1 (L) 12/14/2018 05:34 AM CHLORIDE 107 12/15/2018 05:08 AM CHLORIDE 104 12/14/2018 05:34 AM CO2 21 (L) 12/15/2018 05:08 AM CO2 25 12/14/2018 05:34 AM ALBUMIN 2.0 (L) 12/15/2018 05:08 AM ALBUMIN 2.2 (L) 12/14/2018 05:34 AM CALCIUM 7.6 (L) 12/15/2018 05:08 AM CALCIUM 8.1 (L) 12/14/2018 05:34 AM PHOSPHORUS 4.2 12/15/2018 05:08 AM PHOSPHORUS 4.1 12/14/2018 05:34 AM COAG Lab Results Component Value Date/Time PT 14.9 (H) 12/15/2018 05:08 AM PT 14.0 12/14/2018 05:34 AM INR 1.18 (H) 12/15/2018 05:08 AM INR 1.09 12/14/2018 05:34 AM ASSESSMENT & PLAN: Principal Problem: Cellulitis- meropenem, monitor labs Active Problems: Joint infection- aspiration done, Dr Zepeda following,I & D poly exchange done 12/14/2018 - willconsult ID, may need PICC line, physical and occupational therapy - requesting records from transferring hospital antibiotics and cultures Hypokalemia- supplement and monitor - resolved RA (rheumatoid arthritis)- home medication- solucortef x 24 hours , then resume home dose prednisone History of DVT (deep vein thrombosis)- chronically on coumadin - will bridge lovenox/coumadin When ok with surgery Fibromyalgia- home medication Tobacco abuse- nicoderm Obesity: body mass index of 30.0-34.9 DVT/GIP- ppi and scd Full Code This plan of care has been initiated in collaboration with the attending physician, Dr. Arreaga Please note Portions of this note utilized [employer] dictation software, please excuse any typographical or grammatical errors. Associated attestation - Han Arreaga DO - 12/15/2018 3:22 PM EST Patient seen and examined independently. Meds, labs, and radiographs reviewed. Lungs clear and heart tones regular on exam. Empiric atbx w/ OSH Paturella wound cx. Given pt allergies - Rocephin vs Carbapenem tx - presently on latter. Await additional cx data and ID input. I agree with assessments and plan of care. * Galindo Zepeda MD - 12/15/2018 8:21 AM EST Total Joint Progress Note SUBJECTIVE: No new symptoms or complaints. Medically stable. No chest pain, shortness of breath or abdominal pain. OBJECTIVE: Lab Results Component Value Date WBC 12.8 (H) 12/15/2018 HGB 9.5 (L) 12/15/2018 HCT 29.0 (L) 12/15/2018 PLATELET 404 (H) 12/15/2018 MCV 86.1 12/15/2018 Lab Results Component Value Date SODIUM 136 12/15/2018 POTASSIUM 4.4 12/15/2018 CHLORIDE 107 12/15/2018 CO2 21 (L) 12/15/2018 BUN 11 12/15/2018 CREATSERUM 0.7 12/15/2018 GLUCOSE 110 (H) 12/15/2018 Vital Signs: Vitals: 12/15/18 0400 BP: 106/62 Pulse: 56 Resp: 16 Temp: 97.8 F (36.6 C) Patient is alert and oriented times three. Vascular: Dorsalis pedis/posterior tibial pulses both intact. Neuro:unchanged NV status with normal strength, function and sensation. Wound Appearance: Clean and dry, intact. Dressing: Clean/dry/intact. DVT Screening Exam: Calves soft/non-tender, raúl hose and mechanical device on. Physical Therapy: ROM: is meeting goals. Intraop cultures pending. 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 PT/OT 2. IV antibiotics-Dr. Mayo to see and make rec's, will likely need PICC and plan correction proph. 3. DVT prophylaxis 4. Discharge planning * Carline Dillon, [facility],PharmD - 12/15/2018 8:20 AM EST Pharmacy to Dose - Warfarin Note PATIENT: Amna Sequeira Room/Bed: [facility] Desired INR range: 2-3 Indication(s): Prophylactic Use of Warfarin for VTE Medications: No drug interactions were identified based on the patient's current therapy. Current Diet Status: Regular Recent bleeding/bleeding event: N/A Last labs: INR Date Value Ref Range Status 12/15/2018 1.18 (H) 0.88 - 1.12 Final Comment: 2.0-3.0 THERAPEUTIC RANGE 2.5-3.5 PROSTHETIC VALVE RANGE ? ALBUMIN Date Value Ref Range Status 12/15/2018 2.0 (L) 3.5 - 5.0 G/dl Final ? Plan: An order was placed for 5mg based on SUBtherapeutic INR on day 2 of restart. A Pharmacist will continue to follow and make dose changes as clinically appropriate. Please contact pharmacy if there are any questions. Signed: Carline Dillon RPh,PharmD, Pharmacist Phone: [phone] Date/Time: 12/15/2018 8:20 AM * Saleem Shankar - 12/14/2018 6:35 PM EST Pharmacy to Dose - Warfarin Note PATIENT: Amna Sequeira Room/Bed: [facility] Patients home dose: 2.5 mg daily Desired INR range: 2-3 Indication(s): hx of DVT/post op Medications: The following drug interactions have been identified: prednisone, synthroid, post op tylenol, . Current Diet Status: Clear liquid Recent bleeding/bleeding event: none other than post op today Last labs: INR Date Value Ref Range Status 12/14/2018 1.09 0.88 - 1.12 Final Comment: 2.0-3.0 THERAPEUTIC RANGE 2.5-3.5 PROSTHETIC VALVE RANGE ? ALBUMIN Date Value Ref Range Status 12/14/2018 2.2 (L) 3.5 - 5.0 G/dl Final ? Patient is bridging with Lovenox 40mg subcutaneous daily starting on 12/15/18 per Félix Moulton, wants to slowly get her INR therapeutic. Plan: An order was placed for 5 mg based on INR of 1.09. A Pharmacist will continue to follow and make dose changes as clinically appropriate. Please contact pharmacy if there are any questions. Signed: Carito Solis Phone: [phone] Date/Time: 12/14/2018 6:35 PM * Félix Moulton APRN-CNP - 12/14/2018 2:34 PM EST THIS PATIENT HAS HAD ORTHOPEDIC SURGERY AND IS EXPECTED TO HAVE PAIN REQUIRING NARCOTICS FOR >7 DAYS AND MAY NEED UP TO 12 tabs of oxycodone PER DAY AND THEREFORE 60 tabs ARE BEING DISPENSED IN ACCORDANCE WITH POC DISCUSSED WITH DR ZEPEDA. Will bridge with 40mg lovenox daily until INR >2.0. Stress dose steroid to be managed by medicine. * Félix Moulton APRN-CNP - 12/14/2018 9:16 AM EST Consent signed and witness for planned surgery today. All questions addressed. * Tracy Gumzan LSW - 12/14/2018 9:05 AM EST Spoke to TERRELL Harris this date. She states plan is for patient to go to the OR today with Dr. Zepeda today at 12:00pm. States it is anticipated that patient will need IV antibiotics. Discharge is not anticipated over the weekend. CM to follow up with patient for discharge planning Monday morning. CM to follow. documented in this encounter* Félix Moulton APRN-CNP - 12/19/2018 12:18 PM EST Hard copy prescription of oxycodone found in torn down chart, New rx sent electronically. Pt and pharmacy aware. documented in this encounter* Félix Moulton APRN-CNP - 12/27/2018 2:30 PM EST HISTORY OF PRESENT ILLNESS: Amna is an established patient of mine. She is here today for followup. She is about 2 weeks status single stage knee revision with possible op for acute prosthetic joint infection. She originally presented to [facility] after she was bit by a cat and developed fevers and chills and a wound on the lower extremity, several days later was noted to have redness and swelling of the knee and the knee was aspirated and results were consistent with acute prosthetic joint infection. She underwent a subsequent single stage revision with washout and poly swap. PHYSICAL EXAMINATION: GENERAL: This is alert, oriented, and age-appropriate female. She is in no acute distress. She is pleasant and cooperative. EXTREMITIES: The right lower extremity has thigh and calf, soft and nontender. Well- healed anterior midline knee incision. There is no redness, drainage, dehiscence, discharge, signs or symptoms of infection.There is a small scab medially which is reported to be where the aspiration occurred. [place] were cleansed with Betadine, subsequently removed. Steri-Strips were applied. She has a range of motion of 5-115 degrees. Stable to varus and valgus stress. No increased anterior or posterior drawer. She has an area on the inner aspect of the lower leg, where the cat attack occurred. That area is scabbed over. The sutures were previously removed. No redness, drainage, or dehiscence noted at that area. The left lower extremity has thigh and calf, which are soft and nontender. Normal neurovascular status and negative Homans sign bilaterally. DIAGNOSTIC STUDY INTERPRETATION: Three views of the right knee demonstrate stable positioning and alignment of the revision knee components. No evidence of periprosthetic implant loosening or migration. ASSESSMENT: Two weeks status post single staged knee revision, doing well. PLAN: I reviewed my findings with Amna. She saw Dr. Mayo yesterday and he has ordered blood work. I do not have those results available to me. She is on chronic DMARD management for rheumatoid arthritis, and I have recommended she continue to hold those until she follows back up with me in the office. I will leave further antibiotic management to Dr. Mayo and I would like to follow up with her in 3 weeks' time, as she has an appointment with Dr. Mayo that day anyway. I expect continued improvements in strength and mobility moving forward. As always, should she develop any questions or concerns, I am happy to see her in the meantime. (DOC:[id number]) Procedures I have reviewed the findings of the clinical administrative support technician and agree with their assessment. Félix Moulton APRN-FANNIE Ortho Nurse Established Patient Intake Room#: 4 PT reports for 2 week s/p right knee revision. PT is currently in 6/10 pain after taking oxycodone prior to arrival. PT is currently using a walker for an assistive device. Date: 12/27/2018 2:45 PM Patient: Amna Sequeira MR#: [id number] : 1955 Age: 63 y.o. Referring Physician: Félix Moulton APRN-CNP Insurance: Payor: MEDICARE MISC PFFS / Plan: MEDICARE MISC PFFS / Product Type: *No Product type* / Chief Complaint Patient presents with Right Knee - Post Op Visit Visit Vitals Temp 97.1 F (36.2 C) (Temporal) Ht 1.676 m (5' 6) Wt 85.7 kg (189 lb) BMI 30.51 kg/m Pain Recent Labs Lab Results Component Value Date CRP 140.9 (H) 01/10/2018 Lab Results Component Value Date SEDRATE 113 (H) 01/10/2018 Lab Results Component Value Date WBC 7.3 12/17/2018 HGB 9.7 (L) 12/17/2018 HCT 29.0 (L) 12/17/2018 PLATELET 528 (H) 12/17/2018 MCV 85.1 12/17/2018 History Past Medical History: Diagnosis Date Rheumatoid arteritis 1984 DVT (deep venous thrombosis) 1998 Fibromyalgia 2001 Family History: Her family history includes Breast Cancer in her sister; Cancer- Other in her brother; Coronary Artery Disease in her father and mother; Diabetes in her father; Stroke in her father. Social History: Her reports that she has been smoking cigarettes. She started smoking about 50 years ago. She has been smoking about 1.00 pack per day. She has never used smokeless tobacco. She reports that she does not drink alcohol or use drugs. Outpatient Medications Prior to Visit Medication Sig Dispense Refill acetaminophen 325 MG tablet Take 2 tablets by mouth every 4 hours as needed for Mild Pain. 50 tablet 1 albuterol 108 (90 Base) MCG/ACT Aero Soln inhaler Inhale 2 puffs. ertapenem (INVANZ) in sodium chloride 0.9% (MB PLUS) 50 mL IVPB 1 g by Intravenous route every 24 hours. 42 Bag 0 fentaNYL 50 MCG/HR Patch 72 HR 50 mcg/hr patch fluticasone-salmeterol (ADVAIR DISKUS) 100-50 MCG/DOSE Aerosol Powder, breath activated inhaler Inhale 1 puff. folic acid 1 MG Tab tablet Take 1 mg by mouth. gabapentin 800 MG Tab hydroxychloroquine 200 MG Tab tablet Take by mouth. levothyroxine 125 MCG Tab tablet methocarbamol 750 MG Tab methotrexate 2.5 MG Tab tablet Take 20 mg by mouth every 7 days. montelukast 10 MG Tab tablet Take 10 mg by mouth. omeprazole [address] capsule oxyCODONE 5 MG Tab tablet Take 1-2 tabs po q 4-6 hours PRN pain. 60 tablet 0 potassium chloride 20 MEQ Tab CR tablet predniSONE 5 MG Tab tablet daily. SPIRIVA HANDIHALER 18 MCG inhalation capsule therapeutic multivitamin-minerals Tab Take 1 tablet by mouth daily. 30 tablet 0 warfarin 2.5 MG tablet Take 2.5 mg by mouth. zolpidem 10 MG Tab tablet Take 10 mg by mouth. docusate 100 MG Cap capsule Take 1 capsule by mouth 2 times daily. (Patient not taking: Reported on12/26/2018) 60 capsule 0 No facility-administered medications prior to visit. Current Outpatient Medications: acetaminophen 325 MG tablet, Take 2 tablets by mouth every 4 hours as needed for Mild Pain., Disp: 50 tablet, Rfl: 1 albuterol 108 (90 Base) MCG/ACT Aero Soln inhaler, Inhale 2 puffs., Disp: , Rfl: ertapenem (INVANZ) in sodium chloride 0.9% (MB PLUS) 50 mL IVPB, 1 g by Intravenous route every 24 hours., Disp: 42 Bag, Rfl: 0 fentaNYL 50 MCG/HR Patch 72 HR 50 mcg/hr patch, , Disp: , Rfl: fluticasone-salmeterol (ADVAIR DISKUS) 100-50 MCG/DOSE Aerosol Powder, breath activated inhaler, Inhale 1 puff., Disp: , Rfl: folic acid 1 MG Tab tablet, Take 1 mg by mouth., Disp: , Rfl: gabapentin 800 MG Tab, , Disp: , Rfl: hydroxychloroquine 200 MG Tab tablet, Take by mouth., Disp: , Rfl: levothyroxine 125 MCG Tab tablet, , Disp: , Rfl: methocarbamol 750 MG Tab, , Disp: , Rfl: methotrexate 2.5 MG Tab tablet, Take 20 mg by mouth every 7 days. , Disp: , Rfl: montelukast 10 MG Tab tablet, Take 10 mg by mouth., Disp: , Rfl: omeprazole [address] capsule, , Disp: , Rfl: oxyCODONE 5 MG Tab tablet, Take 1-2 tabs po q 4-6 hours PRN pain., Disp: 60 tablet, Rfl: 0 potassium chloride 20 MEQ Tab CR tablet, , Disp: , Rfl: predniSONE 5 MG Tab tablet, daily. , Disp: , Rfl: SPIRIVA HANDIHALER 18 MCG inhalation capsule, , Disp: , Rfl: therapeutic multivitamin-minerals Tab, Take 1 tablet by mouth daily., Disp: 30 tablet, Rfl: 0 warfarin 2.5 MG tablet, Take 2.5 mg by mouth., Disp: , Rfl: zolpidem 10 MG Tab tablet, Take 10 mg by mouth., Disp: , Rfl: docusate 100 MG Cap capsule, Take 1 capsule by mouth 2 times daily. (Patient not taking: Reported on 12/26/2018), Disp: 60 capsule, Rfl: 0 Allergies: She is allergic to nitrofurantoin; amoxicillin; and sulfa antibiotics. * Elio Payan - 12/27/2018 2:30 PM EST Ortho Nurse Established Patient Intake Room#: 4 PT reports for 2 week s/p right knee revision. PT is currently in 6/10 pain after taking oxycodone prior to arrival. PT is currently using a walker for an assistive device. Date: 12/27/2018 2:45 PM Patient: Amna Sequeira MR#: [id number] : 1955 Age: 63 y.o. Referring Physician: Félix Moulton APRN-CNP Insurance: Payor: MEDICARE MISC PFFS / Plan: MEDICARE MISC PFFS / Product Type: *No Product type* / Chief Complaint Patient presents with Right Knee - Post Op Visit Visit Vitals Temp 97.1 F (36.2 C) (Temporal) Ht 1.676 m (5' 6) Wt 85.7 kg (189 lb) BMI 30.51 kg/m Pain Recent Labs Lab Results Component Value Date CRP 140.9 (H) 01/10/2018 Lab Results Component Value Date SEDRATE 113 (H) 01/10/2018 Lab Results Component Value Date WBC 7.3 12/17/2018 HGB 9.7 (L) 12/17/2018 HCT 29.0 (L) 12/17/2018 PLATELET 528 (H) 12/17/2018 MCV 85.1 12/17/2018 History Past Medical History: Diagnosis Date Rheumatoid arteritis 1984 DVT (deep venous thrombosis) 1998 Fibromyalgia 2001 Family History: Her family history includes Breast Cancer in her sister; Cancer- Other in her brother; Coronary Artery Disease in her father and mother; Diabetes in her father; Stroke in her father. Social History: Her reports that she has been smoking cigarettes. She started smoking about 50 years ago. She has been smoking about 1.00 pack per day. She has never used smokeless tobacco. She reports that she does not drink alcohol or use drugs. Outpatient Medications Prior to Visit Medication Sig Dispense Refill acetaminophen 325 MG tablet Take 2 tablets by mouth every 4 hours as needed for Mild Pain. 50 tablet 1 albuterol 108 (90 Base) MCG/ACT Aero Soln inhaler Inhale 2 puffs. ertapenem (INVANZ) in sodium chloride 0.9% (MB PLUS) 50 mL IVPB 1 g by Intravenous route every 24 hours. 42 Bag 0 fentaNYL 50 MCG/HR Patch 72 HR 50 mcg/hr patch fluticasone-salmeterol (ADVAIR DISKUS) 100-50 MCG/DOSE Aerosol Powder, breath activated inhaler Inhale 1 puff. folic acid 1 MG Tab tablet Take 1 mg by mouth. gabapentin 800 MG Tab hydroxychloroquine 200 MG Tab tablet Take by mouth. levothyroxine 125 MCG Tab tablet methocarbamol 750 MG Tab methotrexate 2.5 MG Tab tablet Take 20 mg by mouth every 7 days. montelukast 10 MG Tab tablet Take 10 mg by mouth. omeprazole [address] capsule oxyCODONE 5 MG Tab tablet Take 1-2 tabs po q 4-6 hours PRN pain. 60 tablet 0 potassium chloride 20 MEQ Tab CR tablet predniSONE 5 MG Tab tablet daily. SPIRIVA HANDIHALER 18 MCG inhalation capsule therapeutic multivitamin-minerals Tab Take 1 tablet by mouth daily. 30 tablet 0 warfarin 2.5 MG tablet Take 2.5 mg by mouth. zolpidem 10 MG Tab tablet Take 10 mg by mouth. docusate 100 MG Cap capsule Take 1 capsule by mouth 2 times daily. (Patient not taking: Reported on12/26/2018) 60 capsule 0 No facility-administered medications prior to visit. Current Outpatient Medications: acetaminophen 325 MG tablet, Take 2 tablets by mouth every 4 hours as needed for Mild Pain., Disp: 50 tablet, Rfl: 1 albuterol 108 (90 Base) MCG/ACT Aero Soln inhaler, Inhale 2 puffs., Disp: , Rfl: ertapenem (INVANZ) in sodium chloride 0.9% (MB PLUS) 50 mL IVPB, 1 g by Intravenous route every 24 hours., Disp: 42 Bag, Rfl: 0 fentaNYL 50 MCG/HR Patch 72 HR 50 mcg/hr patch, , Disp: , Rfl: fluticasone-salmeterol (ADVAIR DISKUS) 100-50 MCG/DOSE Aerosol Powder, breath activated inhaler, Inhale 1 puff., Disp: , Rfl: folic acid 1 MG Tab tablet, Take 1 mg by mouth., Disp: , Rfl: gabapentin 800 MG Tab, , Disp: , Rfl: hydroxychloroquine 200 MG Tab tablet, Take by mouth., Disp: , Rfl: levothyroxine 125 MCG Tab tablet, , Disp: , Rfl: methocarbamol 750 MG Tab, , Disp: , Rfl: methotrexate 2.5 MG Tab tablet, Take 20 mg by mouth every 7 days. , Disp: , Rfl: montelukast 10 MG Tab tablet, Take 10 mg by mouth., Disp: , Rfl: omeprazole [address] capsule, , Disp: , Rfl: oxyCODONE 5 MG Tab tablet, Take 1-2 tabs po q 4-6 hours PRN pain., Disp: 60 tablet, Rfl: 0 potassium chloride 20 MEQ Tab CR tablet, , Disp: , Rfl: predniSONE 5 MG Tab tablet, daily. , Disp: , Rfl: SPIRIVA HANDIHALER 18 MCG inhalation capsule, , Disp: , Rfl: therapeutic multivitamin-minerals Tab, Take 1 tablet by mouth daily., Disp: 30 tablet, Rfl: 0 warfarin 2.5 MG tablet, Take 2.5 mg by mouth., Disp: , Rfl: zolpidem 10 MG Tab tablet, Take 10 mg by mouth., Disp: , Rfl: docusate 100 MG Cap capsule, Take 1 capsule by mouth 2 times daily. (Patient not taking: Reported on 12/26/2018), Disp: 60 capsule, Rfl: 0 Allergies: She is allergic to nitrofurantoin; amoxicillin; and sulfa antibiotics. documented in this encounter* Maximiliano Mayo MD - 01/16/2019 1:30 PM EDT Chief Complaint Patient presents with Follow-up Cellulitis Pt states doing good. Went to [facility], still has redness to lower rt leg where cat scratched her. Pt has LISHA PICC. HPI Patient seen, in clinic for a follow up. She had been on ertapenem for infection in her right knee.Patient says she is doing fine, knee is improving. No drainage. Right leg ulcer is healing also. She want to go swimming. Past Medical History: Diagnosis Date DVT (deep venous thrombosis) 1998 Fibromyalgia 2001 Rheumatoid arteritis 1985 Outpatient Medications Prior to Visit Medication Sig Dispense Refill acetaminophen 325 MG tablet Take 2 tablets by mouth every 4 hours as needed for Mild Pain. 50 tablet 1 albuterol 108 (90 Base) MCG/ACT Aero Soln inhaler Inhale 2 puffs. docusate 100 MG Cap capsule Take 1 capsule by mouth 2 times daily. 60 capsule 0 ertapenem (INVANZ) in sodium chloride 0.9% (MB PLUS) 50 mL IVPB 1 g by Intravenous route every 24 hours. 42 Bag 0 fentaNYL 50 MCG/HR Patch 72 HR 50 mcg/hr patch fluticasone-salmeterol (ADVAIR DISKUS) 100-50 MCG/DOSE Aerosol Powder, breath activated inhaler Inhale 1 puff. folic acid 1 MG Tab tablet Take 1 mg by mouth. gabapentin 800 MG Tab hydroxychloroquine 200 MG Tab tablet Take by mouth. levothyroxine 125 MCG Tab tablet methocarbamol 750 MG Tab methotrexate 2.5 MG Tab tablet Take 20 mg by mouth every 7 days. montelukast 10 MG Tab tablet Take 10 mg by mouth. omeprazole [address] capsule potassium chloride 20 MEQ Tab CR tablet predniSONE 5 MG Tab tablet daily. SPIRIVA HANDIHALER 18 MCG inhalation capsule therapeutic multivitamin-minerals Tab Take 1 tablet by mouth daily. 30 tablet 0 warfarin 2.5 MG tablet Take 2.5 mg by mouth. zolpidem 10 MG Tab tablet Take 10 mg by mouth. oxyCODONE 5 MG Tab tablet Take 1-2 tabs po q 4-6 hours PRN pain. 60 tablet 0 No facility-administered medications prior to visit. Allergies Allergen Reactions Nitrofurantoin Other reaction(s): Other: See Comments Decreased heart rate And B/P Amoxicillin Nausea and Vomiting Sulfa Antibiotics Hives Examination: Gen: Comfortable in bed, no signs of distress HEENT: Normocephalic, atraumatic, Moist oral mucous membranes Neck: supple, Lungs: Clear to auscultation BL, anterior and posterior, without rales, rhonchi or wheezing Heart: Regular in rate and rhythm. Abd: Soft and non-distended. Non tender BSPx 4 Skin: No obvious rashes or cyanosis.dressing dry and intact Neuro: Grossly non-focal examination Right Knee: Stable incision site good, non tender. Leg distal area with ulcer no drainage, but mild discharge. Labs: I reviewed labs. 01/02/19: Wbc: 6.7 Hb: 11.1 Plt; 310 Bun/cr: 10/0.65 Crp: 18 Patient with 1: Cat bite right leg. 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 Plans; Will continue with ertapenem iv for now. Follow up labs. Cbc, bmp, esr, crp weekly. Will switch to po abx on maintenance therapy with Doxycycline, Will see in 2 weeks. Hold on on swimming until wound scabbed off. All medications, and side effects, were adequately explained to patient. Antibiotic therapy risks and allergic reactions including rashes, diarrhea, C. diff colitis, angioedema and Irving-Rl like reaction were also discussed , and all questions answered, with patient expressing understanding. Over 50% of the clinic visit was involved in Discussion of Diagnosis, Plan, Infection Control , Prevention and Follow up. 25 minutes of clinical quality time spent on face to face evaluation of patient, with/without family member, and reviewing medical records. Maximiliano Mayo MD No notes on file documented in this encounter* SaigeFélix, [employer] - 01/16/2019 11:40 AM EDT HISTORY OF PRESENT ILLNESS: Amna is an established patient. She is here today for followup. She is now about 5 weeks status post right knee single stage revision. She reports overall she is doing well. She has had no fevers or chills. No changes constitutionally. She still has a small scab in the lower area where the I and D was done of the lower extremity at the [facility], but she had no problems with the knee incision whatsoever. PHYSICAL EXAMINATION: GENERAL: She is alert, oriented, and age-appropriate female, in no acute distress. She is pleasant and cooperative. EXTREMITIES: The right lower extremities thigh and calf are soft and nontender. Normal neurovascular status. Well-healed anterior midline incision. No redness, drainage, dehiscence, discharge, signs or symptoms of infection. Warmth in the knee. She has examination stable to varus and valgus stress. Range of motion 5-115 degrees. Good balance stability throughout the arc of motion. The left lower extremity has thigh and calf are soft and nontender. Normal neurovascular status. Negative Homans sign bilaterally. ASSESSMENT: Five weeks status post single stage revision, doing well. PLAN: I reviewed my findings with Amna and her daughter today. She is seeing Dr. Mayo later today. He is following her blood work. I do not have any other lab results available to me. She is still on prednisone as DMARD management for her rheumatoid arthritis and she is continuing on that. I would like to see her in 3 month followup for surgery. I expect continued improvements in strength and mobility moving forward. As always, should she have any questions, concerns, or new symptoms develop, I am happy to see her sooner. ([id number]) Procedures I have reviewed the findings of the clinical administrative support technician and agree with their assessment. DESIREE Appiah .I have reviewed the findings of the clinical administrative support technician and agree with their assessment. DESIREE Appiah Ortho Nurse Established Patient Intake Room#: 3 PT reports for 3 week f/u for right knee revision. PT denies any pain at this time, PT reports taking OTC liquid Advil PRN for pain with moderate relief. Date: 01/16/2019 11:59 AM Patient: Amna Sequeira MR#: [id number] : 1955 Age: 63 y.o. Referring Physician: Félix Moulton APRN-CNP Insurance: Payor: MEDICARE MISC PFFS / Plan: MEDICARE MISC PFFS / Product Type: *No Product type* / Chief Complaint Patient presents with Right Knee - Follow-up Visit Vitals Temp 97.4 F (36.3 C) (Temporal) Ht 1.676 m (5' 6) Wt 85.7 kg (189 lb) BMI 30.51 kg/m Pain Recent Labs Lab Results Component Value Date CRP 140.9 (H) 01/10/2018 Lab Results Component Value Date SEDRATE 113 (H) 01/10/2018 Lab Results Component Value Date WBC 7.3 12/17/2018 HGB 9.7 (L) 12/17/2018 HCT 29.0 (L) 12/17/2018 PLATELET 528 (H) 12/17/2018 MCV 85.1 12/17/2018 History Past Medical History: Diagnosis Date Rheumatoid arteritis 1984 DVT (deep venous thrombosis) 1998 Fibromyalgia 2001 Past Surgical History: Procedure Laterality Date I&D ABSCESS Right 12/14/2018 Laterality: Right; Surgeon: Galindo Zepeda MD; Location: [facility] UNLISTED PX FEMUR OR KNEE Right 12/14/2018 Laterality: Right; Surgeon: Galindo Zepeda MD; Location: [facility] KNEE REPLACEMENT Right 2018 THYROIDECTOMY TOTAL Bilateral 2013 KNEE REPLACEMENT Right 2012 HIP REPLACEMENT Right 2010 HYSTERECTOMY Bilateral 1993 REMOVAL CATARACT (PEM) Family History: Her family history includes Breast Cancer in her sister; Cancer- Other in her brother; Coronary Artery Disease in her father and mother; Diabetes in her father; Stroke in her father. Social History: Her reports that she has been smoking cigarettes. She started smoking about 51 years ago. She has been smoking about 1.00 pack per day. She has never used smokeless tobacco. She reports that she does not drink alcohol or use drugs. Outpatient Medications Prior to Visit Medication Sig Dispense Refill acetaminophen 325 MG tablet Take 2 tablets by mouth every 4 hours as needed for Mild Pain. 50 tablet 1 albuterol 108 (90 Base) MCG/ACT Aero Soln inhaler Inhale 2 puffs. ertapenem (INVANZ) in sodium chloride 0.9% (MB PLUS) 50 mL IVPB 1 g by Intravenous route every 24 hours. 42 Bag 0 fentaNYL 50 MCG/HR Patch 72 HR 50 mcg/hr patch fluticasone-salmeterol (ADVAIR DISKUS) 100-50 MCG/DOSE Aerosol Powder, breath activated inhaler Inhale 1 puff. folic acid 1 MG Tab tablet Take 1 mg by mouth. gabapentin 800 MG Tab hydroxychloroquine 200 MG Tab tablet Take by mouth. levothyroxine 125 MCG Tab tablet methocarbamol 750 MG Tab methotrexate 2.5 MG Tab tablet Take 20 mg by mouth every 7 days. montelukast 10 MG Tab tablet Take 10 mg by mouth. omeprazole [address] capsule potassium chloride 20 MEQ Tab CR tablet predniSONE 5 MG Tab tablet daily. SPIRIVA HANDIHALER 18 MCG inhalation capsule therapeutic multivitamin-minerals Tab Take 1 tablet by mouth daily. 30 tablet 0 warfarin 2.5 MG tablet Take 2.5 mg by mouth. zolpidem 10 MG Tab tablet Take 10 mg by mouth. docusate 100 MG Cap capsule Take 1 capsule by mouth 2 times daily. (Patient not taking: Reported on12/26/2018) 60 capsule 0 oxyCODONE 5 MG Tab tablet Take 1-2 tabs po q 4-6 hours PRN pain. 60 tablet 0 No facility-administered medications prior to visit. Current Outpatient Medications: acetaminophen 325 MG tablet, Take 2 tablets by mouth every 4 hours as needed for Mild Pain., Disp: 50 tablet, Rfl: 1 albuterol 108 (90 Base) MCG/ACT Aero Soln inhaler, Inhale 2 puffs., Disp: , Rfl: ertapenem (INVANZ) in sodium chloride 0.9% (MB PLUS) 50 mL IVPB, 1 g by Intravenous route every 24 hours., Disp: 42 Bag, Rfl: 0 fentaNYL 50 MCG/HR Patch 72 HR 50 mcg/hr patch, , Disp: , Rfl: fluticasone-salmeterol (ADVAIR DISKUS) 100-50 MCG/DOSE Aerosol Powder, breath activated inhaler, Inhale 1 puff., Disp: , Rfl: folic acid 1 MG Tab tablet, Take 1 mg by mouth., Disp: , Rfl: gabapentin 800 MG Tab, , Disp: , Rfl: hydroxychloroquine 200 MG Tab tablet, Take by mouth., Disp: , Rfl: levothyroxine 125 MCG Tab tablet, , Disp: , Rfl: methocarbamol 750 MG Tab, , Disp: , Rfl: methotrexate 2.5 MG Tab tablet, Take 20 mg by mouth every 7 days. , Disp: , Rfl: montelukast 10 MG Tab tablet, Take 10 mg by mouth., Disp: , Rfl: omeprazole [address] capsule, , Disp: , Rfl: potassium chloride 20 MEQ Tab CR tablet, , Disp: , Rfl: predniSONE 5 MG Tab tablet, daily. , Disp: , Rfl: SPIRIVA HANDIHALER 18 MCG inhalation capsule, , Disp: , Rfl: therapeutic multivitamin-minerals Tab, Take 1 tablet by mouth daily., Disp: 30 tablet, Rfl: 0 warfarin 2.5 MG tablet, Take 2.5 mg by mouth., Disp: , Rfl: zolpidem 10 MG Tab tablet, Take 10 mg by mouth., Disp: , Rfl: docusate 100 MG Cap capsule, Take 1 capsule by mouth 2 times daily. (Patient not taking: Reported on 12/26/2018), Disp: 60 capsule, Rfl: 0 oxyCODONE 5 MG Tab tablet, Take 1-2 tabs po q 4-6 hours PRN pain., Disp: 60 tablet, Rfl: 0 Allergies: She is allergic to nitrofurantoin; amoxicillin; and sulfa antibiotics. * Elio Payan - 01/16/2019 11:40 AM EDT Ortho Nurse Established Patient Intake Room#: 3 PT reports for 3 week f/u for right knee revision. PT denies any pain at this time, PT reports taking OTC liquid Advil PRN for pain with moderate relief. Date: 01/16/2019 11:59 AM Patient: Amna Sequeira MR#: [id number] : 1955 Age: 63 y.o. Referring Physician: Félix Moulton APRN-CNP Insurance: Payor: MEDICARE MISC PFFS / Plan: MEDICARE MISC PFFS / Product Type: *No Product type* / Chief Complaint Patient presents with Right Knee - Follow-up Visit Vitals Temp 97.4 F (36.3 C) (Temporal) Ht 1.676 m (5' 6) Wt 85.7 kg (189 lb) BMI 30.51 kg/m Pain Recent Labs Lab Results Component Value Date CRP 140.9 (H) 01/10/2018 Lab Results Component Value Date SEDRATE 113 (H) 01/10/2018 Lab Results Component Value Date WBC 7.3 12/17/2018 HGB 9.7 (L) 12/17/2018 HCT 29.0 (L) 12/17/2018 PLATELET 528 (H) 12/17/2018 MCV 85.1 12/17/2018 History Past Medical History: Diagnosis Date Rheumatoid arteritis 1984 DVT (deep venous thrombosis) 1998 Fibromyalgia 2001 Family History: Her family history includes Breast Cancer in her sister; Cancer- Other in her brother; Coronary Artery Disease in her father and mother; Diabetes in her father; Stroke in her father. Social History: Her reports that she has been smoking cigarettes. She started smoking about 51 years ago. She has been smoking about 1.00 pack per day. She has never used smokeless tobacco. She reports that she does not drink alcohol or use drugs. Outpatient Medications Prior to Visit Medication Sig Dispense Refill acetaminophen 325 MG tablet Take 2 tablets by mouth every 4 hours as needed for Mild Pain. 50 tablet 1 albuterol 108 (90 Base) MCG/ACT Aero Soln inhaler Inhale 2 puffs. ertapenem (INVANZ) in sodium chloride 0.9% (MB PLUS) 50 mL IVPB 1 g by Intravenous route every 24 hours. 42 Bag 0 fentaNYL 50 MCG/HR Patch 72 HR 50 mcg/hr patch fluticasone-salmeterol (ADVAIR DISKUS) 100-50 MCG/DOSE Aerosol Powder, breath activated inhaler Inhale 1 puff. folic acid 1 MG Tab tablet Take 1 mg by mouth. gabapentin 800 MG Tab hydroxychloroquine 200 MG Tab tablet Take by mouth. levothyroxine 125 MCG Tab tablet methocarbamol 750 MG Tab methotrexate 2.5 MG Tab tablet Take 20 mg by mouth every 7 days. montelukast 10 MG Tab tablet Take 10 mg by mouth. omeprazole [address] capsule potassium chloride 20 MEQ Tab CR tablet predniSONE 5 MG Tab tablet daily. SPIRIVA HANDIHALER 18 MCG inhalation capsule therapeutic multivitamin-minerals Tab Take 1 tablet by mouth daily. 30 tablet 0 warfarin 2.5 MG tablet Take 2.5 mg by mouth. zolpidem 10 MG Tab tablet Take 10 mg by mouth. docusate 100 MG Cap capsule Take 1 capsule by mouth 2 times daily. (Patient not taking: Reported on12/26/2018) 60 capsule 0 oxyCODONE 5 MG Tab tablet Take 1-2 tabs po q 4-6 hours PRN pain. 60 tablet 0 No facility-administered medications prior to visit. Current Outpatient Medications: acetaminophen 325 MG tablet, Take 2 tablets by mouth every 4 hours as needed for Mild Pain., Disp: 50 tablet, Rfl: 1 albuterol 108 (90 Base) MCG/ACT Aero Soln inhaler, Inhale 2 puffs., Disp: , Rfl: ertapenem (INVANZ) in sodium chloride 0.9% (MB PLUS) 50 mL IVPB, 1 g by Intravenous route every 24 hours., Disp: 42 Bag, Rfl: 0 fentaNYL 50 MCG/HR Patch 72 HR 50 mcg/hr patch, , Disp: , Rfl: fluticasone-salmeterol (ADVAIR DISKUS) 100-50 MCG/DOSE Aerosol Powder, breath activated inhaler, Inhale 1 puff., Disp: , Rfl: folic acid 1 MG Tab tablet, Take 1 mg by mouth., Disp: , Rfl: gabapentin 800 MG Tab, , Disp: , Rfl: hydroxychloroquine 200 MG Tab tablet, Take by mouth., Disp: , Rfl: levothyroxine 125 MCG Tab tablet, , Disp: , Rfl: methocarbamol 750 MG Tab, , Disp: , Rfl: methotrexate 2.5 MG Tab tablet, Take 20 mg by mouth every 7 days. , Disp: , Rfl: montelukast 10 MG Tab tablet, Take 10 mg by mouth., Disp: , Rfl: omeprazole [address] capsule, , Disp: , Rfl: potassium chloride 20 MEQ Tab CR tablet, , Disp: , Rfl: predniSONE 5 MG Tab tablet, daily. , Disp: , Rfl: SPIRIVA HANDIHALER 18 MCG inhalation capsule, , Disp: , Rfl: therapeutic multivitamin-minerals Tab, Take 1 tablet by mouth daily., Disp: 30 tablet, Rfl: 0 warfarin 2.5 MG tablet, Take 2.5 mg by mouth., Disp: , Rfl: zolpidem 10 MG Tab tablet, Take 10 mg by mouth., Disp: , Rfl: docusate 100 MG Cap capsule, Take 1 capsule by mouth 2 times daily. (Patient not taking: Reported on 12/26/2018), Disp: 60 capsule, Rfl: 0 oxyCODONE 5 MG Tab tablet, Take 1-2 tabs po q 4-6 hours PRN pain., Disp: 60 tablet, Rfl: 0 Allergies: She is allergic to nitrofurantoin; amoxicillin; and sulfa antibiotics. documented in this encounter* Maximiliano Mayo MD - 01/30/2019 10:15 AM EDT Chief Complaint Patient presents with Follow-up Infection Pt states doing well. LISHA PICC pt denies pain or fever or chills. HPI Patient seen, in clinic for a follow up. She has no new symptoms, no fever, no chills. Patient sayskfreddiee is doing great. She wants to know if she can do massage therapy. Past Medical History: Diagnosis Date DVT (deep venous thrombosis) 1998 Fibromyalgia 2001 Rheumatoid arteritis 1985 Outpatient Medications Prior to Visit Medication Sig Dispense Refill acetaminophen 325 MG tablet Take 2 tablets by mouth every 4 hours as needed for Mild Pain. 50 tablet 1 albuterol 108 (90 Base) MCG/ACT Aero Soln inhaler Inhale 2 puffs. docusate 100 MG Cap capsule Take 1 capsule by mouth 2 times daily. 60 capsule 0 ertapenem (INVANZ) in sodium chloride 0.9% (MB PLUS) 50 mL IVPB 1 g by Intravenous route every 24 hours. 42 Bag 0 fentaNYL 50 MCG/HR Patch 72 HR 50 mcg/hr patch fluticasone-salmeterol (ADVAIR DISKUS) 100-50 MCG/DOSE Aerosol Powder, breath activated inhaler Inhale 1 puff. folic acid 1 MG Tab tablet Take 1 mg by mouth. gabapentin 800 MG Tab hydroxychloroquine 200 MG Tab tablet Take by mouth. levothyroxine 125 MCG Tab tablet methocarbamol 750 MG Tab methotrexate 2.5 MG Tab tablet Take 20 mg by mouth every 7 days. montelukast 10 MG Tab tablet Take 10 mg by mouth. omeprazole [address] capsule potassium chloride 20 MEQ Tab CR tablet predniSONE 5 MG Tab tablet daily. SPIRIVA HANDIHALER 18 MCG inhalation capsule therapeutic multivitamin-minerals Tab Take 1 tablet by mouth daily. 30 tablet 0 warfarin 2.5 MG tablet Take 2.5 mg by mouth. zolpidem 10 MG Tab tablet Take 10 mg by mouth. oxyCODONE 5 MG Tab tablet Take 1-2 tabs po q 4-6 hours PRN pain. 60 tablet 0 No facility-administered medications prior to visit. Allergies Allergen Reactions Nitrofurantoin Other reaction(s): Other: See Comments Decreased heart rate And B/P Amoxicillin Nausea and Vomiting Sulfa Antibiotics Hives Examination: Gen: Comfortable in bed, no signs of distress HEENT: Normocephalic, atraumatic, Moist oral mucous membranes Neck: supple, Lungs: Clear to auscultation BL, anterior and posterior, without rales, rhonchi or wheezing Heart: Regular in rate and rhythm. Abd: Soft and non-distended. Non tender BSPx 4 Skin: No obvious rashes or cyanosis.dressing dry and intact Neuro: Grossly non-focal examination Right Knee: Stable incision site good, non tender. Leg distal area with ulcer no drainage, but mild discharge. Labs: I reviewed labs.01/29/18 01/02/19: Wbc: 7.48 Hb: 11.0 Plt; 300 Bun/cr: 9/0.58 Crp: 32 Esr: Patient with 1: Cat bite right leg. 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 3: Rheumatoid arthritist Plans; Will continue with ertapenem iv for now. Follow up labs. Cbc, bmp, esr, crp in 6 weeks. Start po abx on maintenance therapy with Doxycycline, Will see in 6 weeks. DC Picc line. I dc picc line with and was uneventful. All medications, and side effects, were adequately explained to patient. Antibiotic therapy risks and allergic reactions including rashes, diarrhea, C. diff colitis, angioedema and Irving-Rl like reaction were also discussed , and all questions answered, with patient expressing understanding. Over 50% of the clinic visit was involved in Discussion of Diagnosis, Plan, Infection Control , Prevention and Follow up. 45 minutes of clinical quality time spent on face to face evaluation of patient, with/without family member, and reviewing medical records. Maximiliano Mayo MD Nurse Note: Review of Systems Constitutional: Negative. HENT: Negative. Eyes: Negative. Respiratory: Negative. Cardiovascular: Negative. Gastrointestinal: Negative. Endocrine: Negative. Genitourinary: Negative. Musculoskeletal: Negative. Skin: Negative. Allergic/Immunologic: Negative. Neurological: Negative. Hematological: Negative. Psychiatric/Behavioral: Negative. Nursing Assessment: Physical Exam Pt alert and oriented times 3. Pt has LSIHA PICC. Pt denies problems or concerns at this time. * Patsy Shine LPN - 01/30/2019 10:15 AM EDT Nurse Note: Review of Systems Constitutional: Negative. HENT: Negative. Eyes: Negative. Respiratory: Negative. Cardiovascular: Negative. Gastrointestinal: Negative. Endocrine: Negative. Genitourinary: Negative. Musculoskeletal: Negative. Skin: Negative. Allergic/Immunologic: Negative. Neurological: Negative. Hematological: Negative. Psychiatric/Behavioral: Negative. Nursing Assessment: Physical Exam Pt alert and oriented times 3. Pt has LISHA PICC. Pt denies problems or concerns at this time. documented in this encounter* Galindo Zepeda MD - 04/18/2019 10:30 AM EDT HPI: Patient is here today for evaluation of their operative knee. She is status post revision total knee arthroplasty. She is about 4 months out from surgery and reports that she is doing well and is pleased with the outcome of the intervention. PHYSICAL EXAM: The bilateral lower extremities were evaluated. The operative lower extremity is soft, nontender, full and supple motion. No pain, no impingement. No instability. Incision is well healed. She has full return of motion, 0-120 degrees and a stable examination to varus and valgus stresswith normal balance throughout the arc of motion. The contralateral extremity has full motion, normal stability, no tenderness. Both extremities have normal neurovascular status. DIAGNOSTIC STUDIES/INTERPRETATION: Plain film radiographs reviewed. Three views of the operative knee show a cemented total knee arthroplasty in good position and alignment. No evidence of prostheticimplant loosening or migration. Long standing films demonstrate neutral recreation of the mechanical axis through the operative leg. IMPRESSION: Stable status post revision total knee arthroplasty, doing well. PLAN: I am pleased with the outcome of intervention. She has made an excellent recovery. I expect continued improvement in strength and mobility moving forward. I recommend followup at one year for repeat clinical and radiographic examination or sooner if any new symptoms develop. She will call with any questions or concerns in the meantime. ESR CRP mildly elevated, trending down, I think due to autoimmune. On ABX and knee looks great. Will see at 1 yr or sooner prn. Galindo Zepeda MD I have reviewed the findings of the clinical administrative support technician and agree with their assessment. Ortho Nurse Established Patient Intake Room#: for her 4 month post-op check of right knee revision. She has been doing good. She has 0 pain. Date: 04/18/2019 10:58 AM Patient: Amna Sequeira MR#: [id number] : 1955 Age: 63 y.o. Referring Physician: Galindo Zepeda MD Insurance: Payor: MEDICARE [facility] [place] [facility] / Plan: MEDICARE [facility] [place] [facility] / Product Type: *No Product type* / Chief Complaint Patient presents with Right Knee - Post Op Visit Visit Vitals Temp 97.3 F (36.3 C) Ht 1.651 m (5' 5) Wt 83.5 kg (184 lb) BMI 30.62 kg/m Pain Presence of Pain: denies pain/discomfort (04/18/19 1053) Recent Labs Lab Results Component Value Date CRP 36.6 (H) 04/03/2019 Lab Results Component Value Date SEDRATE 86 (H) 04/03/2019 Lab Results Component Value Date WBC 8.0 04/03/2019 HGB 12.2 04/03/2019 HCT 37.1 04/03/2019 PLATELET 359 04/03/2019 MCV 82.7 04/03/2019 History Past Medical History: Diagnosis Date Rheumatoid arteritis 1984 DVT (deep venous thrombosis) 1998 Fibromyalgia 2001 Family History: Her family history includes Breast Cancer in her sister; Cancer- Other in her brother; Coronary Artery Disease in her father and mother; Diabetes in her father; Stroke in her father. Social History: Her reports that she has been smoking cigarettes. She started smoking about 51 years ago. She has been smoking about 1.00 pack per day. She has never used smokeless tobacco. She reports that she does not drink alcohol or use drugs. Outpatient Medications Prior to Visit Medication Sig Dispense Refill acetaminophen 325 MG tablet Take 2 tablets by mouth every 4 hours as needed for Mild Pain. 50 tablet 1 albuterol 108 (90 Base) MCG/ACT Aero Soln inhaler Inhale 2 puffs. ampicillin 500 MG Cap Take 1 capsule by mouth 2 times daily. Maintenance therapy 60 capsule 3 fentaNYL 50 MCG/HR Patch 72 HR 50 mcg/hr patch fluticasone-salmeterol (ADVAIR DISKUS) 100-50 MCG/DOSE Aerosol Powder, breath activated inhaler Inhale 1 puff. folic acid 1 MG Tab tablet Take 1 mg by mouth. gabapentin 800 MG Tab hydroxychloroquine 200 MG Tab tablet Take by mouth. levothyroxine 125 MCG Tab tablet methocarbamol 750 MG Tab methotrexate 2.5 MG Tab tablet Take 20 mg by mouth every 7 days. montelukast 10 MG Tab tablet Take 10 mg by mouth. omeprazole [address] capsule potassium chloride 20 MEQ Tab CR tablet predniSONE 5 MG Tab tablet daily. SPIRIVA HANDIHALER 18 MCG inhalation capsule therapeutic multivitamin-minerals Tab Take 1 tablet by mouth daily. 30 tablet 0 warfarin 2.5 MG tablet Take 2.5 mg by mouth. zolpidem 10 MG Tab tablet Take 5 mg by mouth at bedtime. docusate 100 MG Cap capsule Take 1 capsule by mouth 2 times daily. (Patient not taking: Reported on04/03/2019) 60 capsule 0 ertapenem (INVANZ) in sodium chloride 0.9% (MB PLUS) 50 mL IVPB 1 g by Intravenous route every 24 hours. (Patient not taking: Reported on 04/03/2019) 42 Bag 0 oxyCODONE 5 MG Tab tablet Take 1-2 tabs po q 4-6 hours PRN pain. 60 tablet 0 No facility-administered medications prior to visit. Allergies: She is allergic to nitrofurantoin; amoxicillin; and sulfa antibiotics. Procedures * Ana Robbins LPN - 04/18/2019 10:30 AM EDT Ortho Nurse Established Patient Intake Room#: for her 4 month post-op check of right knee revision. She has been doing good. She has 0 pain. Date: 04/18/2019 10:58 AM Patient: Amna Sequeira MR#: [id number] : 1955 Age: 63 y.o. Referring Physician: Galindo Zepeda MD Insurance: Payor: MEDICARE [employer] / Plan: MEDICARE [facility] / Product Type: *No Product type* / Chief Complaint Patient presents with Right Knee - Post Op Visit Visit Vitals Temp 97.3 F (36.3 C) Ht 1.651 m (5' 5) Wt 83.5 kg (184 lb) BMI 30.62 kg/m Pain Presence of Pain: denies pain/discomfort (04/18/19 1053) Recent Labs Lab Results Component Value Date CRP 36.6 (H) 04/03/2019 Lab Results Component Value Date SEDRATE 86 (H) 04/03/2019 Lab Results Component Value Date WBC 8.0 04/03/2019 HGB 12.2 04/03/2019 HCT 37.1 04/03/2019 PLATELET 359 04/03/2019 MCV 82.7 04/03/2019 History Past Medical History: Diagnosis Date Rheumatoid arteritis 1984 DVT (deep venous thrombosis) 1998 Fibromyalgia 2001 Family History: Her family history includes Breast Cancer in her sister; Cancer- Other in her brother; Coronary Artery Disease in her father and mother; Diabetes in her father; Stroke in her father. Social History: Her reports that she has been smoking cigarettes. She started smoking about 51 years ago. She has been smoking about 1.00 pack per day. She has never used smokeless tobacco. She reports that she does not drink alcohol or use drugs. Outpatient Medications Prior to Visit Medication Sig Dispense Refill acetaminophen 325 MG tablet Take 2 tablets by mouth every 4 hours as needed for Mild Pain. 50 tablet 1 albuterol 108 (90 Base) MCG/ACT Aero Soln inhaler Inhale 2 puffs. ampicillin 500 MG Cap Take 1 capsule by mouth 2 times daily. Maintenance therapy 60 capsule 3 fentaNYL 50 MCG/HR Patch 72 HR 50 mcg/hr patch fluticasone-salmeterol (ADVAIR DISKUS) 100-50 MCG/DOSE Aerosol Powder, breath activated inhaler Inhale 1 puff. folic acid 1 MG Tab tablet Take 1 mg by mouth. gabapentin 800 MG Tab hydroxychloroquine 200 MG Tab tablet Take by mouth. levothyroxine 125 MCG Tab tablet methocarbamol 750 MG Tab methotrexate 2.5 MG Tab tablet Take 20 mg by mouth every 7 days. montelukast 10 MG Tab tablet Take 10 mg by mouth. omeprazole [address] capsule potassium chloride 20 MEQ Tab CR tablet predniSONE 5 MG Tab tablet daily. SPIRIVA HANDIHALER 18 MCG inhalation capsule therapeutic multivitamin-minerals Tab Take 1 tablet by mouth daily. 30 tablet 0 warfarin 2.5 MG tablet Take 2.5 mg by mouth. zolpidem 10 MG Tab tablet Take 5 mg by mouth at bedtime. docusate 100 MG Cap capsule Take 1 capsule by mouth 2 times daily. (Patient not taking: Reported on04/03/2019) 60 capsule 0 ertapenem (INVANZ) in sodium chloride 0.9% (MB PLUS) 50 mL IVPB 1 g by Intravenous route every 24 hours. (Patient not taking: Reported on 04/03/2019) 42 Bag 0 oxyCODONE 5 MG Tab tablet Take 1-2 tabs po q 4-6 hours PRN pain. 60 tablet 0 No facility-administered medications prior to visit. Allergies: She is allergic to nitrofurantoin; amoxicillin; and sulfa antibiotics. documented in this encounter* Maximiliano Mayo MD - 05/15/2019 11:00 AM EDT Chief Complaint Patient presents with Follow-up Pt had labs this am. Cellulitis pt here to followw up on cat scratch. Pts leg has healed and pt has bruise to rt lower leg. Pt denies problems or concerns at this time. HPI Patient seen, in clinic for a follow up. She has no new symptoms, no fever, no chills. Patient saysknee is doing great. Patient still on ampicillin. She had initially had some diarrhea, but now improved. No knee pains, or any redness. Past Medical History: Diagnosis Date DVT (deep venous thrombosis) 1998 Fibromyalgia 2001 Rheumatoid arteritis 1985 Outpatient Medications Prior to Visit Medication Sig Dispense Refill acetaminophen 325 MG tablet Take 2 tablets by mouth every 4 hours as needed for Mild Pain. 50 tablet 1 albuterol 108 (90 Base) MCG/ACT Aero Soln inhaler Inhale 2 puffs. fentaNYL 50 MCG/HR Patch 72 HR 50 mcg/hr patch fluticasone-salmeterol (ADVAIR DISKUS) 100-50 MCG/DOSE Aerosol Powder, breath activated inhaler Inhale 1 puff. folic acid 1 MG Tab tablet Take 1 mg by mouth. gabapentin 800 MG Tab hydroxychloroquine 200 MG Tab tablet Take by mouth. levothyroxine 125 MCG Tab tablet methocarbamol 750 MG Tab methotrexate 2.5 MG Tab tablet Take 20 mg by mouth every 7 days. montelukast 10 MG Tab tablet Take 10 mg by mouth. omeprazole [address] capsule potassium chloride 20 MEQ Tab CR tablet predniSONE 5 MG Tab tablet daily. SPIRIVA HANDIHALER 18 MCG inhalation capsule therapeutic multivitamin-minerals Tab Take 1 tablet by mouth daily. 30 tablet 0 warfarin 2.5 MG tablet Take 2.5 mg by mouth. zolpidem 10 MG Tab tablet Take 5 mg by mouth at bedtime. docusate 100 MG Cap capsule Take 1 capsule by mouth 2 times daily. (Patient not taking: Reported on04/03/2019) 60 capsule 0 ertapenem (INVANZ) in sodium chloride 0.9% (MB PLUS) 50 mL IVPB 1 g by Intravenous route every 24 hours. (Patient not taking: Reported on 04/03/2019) 42 Bag 0 oxyCODONE 5 MG Tab tablet Take 1-2 tabs po q 4-6 hours PRN pain. 60 tablet 0 No facility-administered medications prior to visit. Allergies Allergen Reactions Nitrofurantoin Other reaction(s): Other: See Comments Decreased heart rate And B/P Amoxicillin Nausea and Vomiting Sulfa Antibiotics Hives Examination: Gen: Comfortable in bed, no signs of distress HEENT: Normocephalic, atraumatic, Moist oral mucous membranes Neck: supple, Lungs: Clear to auscultation BL, anterior and posterior, without rales, rhonchi or wheezing Heart: Regular in rate and rhythm. Abd: Soft and non-distended. Non tender BSPx 4 Skin: No obvious rashes or cyanosis.dressing dry and intact Neuro: Grossly non-focal examination Right Knee: Stable incision site good, non tender. Still Leg distal area with no ulcer, no drainage, no discharge Labs: I reviewed labs.01/29/18 01/02/19: Wbc: 7.7 Hb: 12.6 Plt; 308 Bun/cr: 11/0.64 Crp: 32 ---->39.6 Esr:94<---- 86 Patient with 1: Cat bite right leg. 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 3: Rheumatoid arthritist Plans; Follow up labs. Cbc, bmp, esr, crp in 3 months Continue on maintenance therapy with ampicillin Will see in 3months. All medications, and side effects, were adequately explained to patient. Antibiotic therapy risks and allergic reactions including rashes, diarrhea, C. diff colitis, angioedema and Irving-Rl like reaction were also discussed , and all questions answered, with patient expressing understanding. Over 50% of the clinic visit was involved in Discussion of Diagnosis, Plan, Infection Control , Prevention and Follow up. 25 minutes of clinical quality time spent on face to face evaluation of patient, with/without family member, and reviewing medical records. Maximiliano Mayo MD Nurse Note: Review of Systems Constitutional: Negative. HENT: Negative. Eyes: Negative. Respiratory: Negative. Cardiovascular: Negative. Gastrointestinal: Negative. Endocrine: Negative. Genitourinary: Negative. Musculoskeletal: Negative. Skin: Negative. Allergic/Immunologic: Negative. Neurological: Negative. Hematological: Negative. Psychiatric/Behavioral: Positive for sleep disturbance. Nursing Assessment: Physical Exam Pt alert and oriented tomes 3. PT states that she is doing well, no problems with rt lower leg. Pt has bruise But states no pain fever or chills. * Patsy Shine LPN - 05/15/2019 11:00 AM EDT Nurse Note: Review of Systems Constitutional: Negative. HENT: Negative. Eyes: Negative. Respiratory: Negative. Cardiovascular: Negative. Gastrointestinal: Negative. Endocrine: Negative. Genitourinary: Negative. Musculoskeletal: Negative. Skin: Negative. Allergic/Immunologic: Negative. Neurological: Negative. Hematological: Negative. Psychiatric/Behavioral: Positive for sleep disturbance. Nursing Assessment: Physical Exam Pt alert and oriented tomes 3. PT states that she is doing well, no problems with rt lower leg. Pt has bruise But states no pain fever or chills. documented in this encounter* aPtsy Shine LPN - 08/14/2019 11:00 AM EDT Nurse Note: Review of Systems Nursing Assessment: Physical Exam * Maximiliano Mayo MD - 08/14/2019 11:00 AM EDT Chief Complaint Patient presents with Follow-up pt had labs this am. Cellulitis pt states that she is doing well. she denies fever or chills states that she had a virus a week agobut that is gone. Pt states that she is swimming and now doing well. No fever or chills at this time. HPI Patient seen, in clinic for a follow up. She has no new symptoms, no fever, no chills. Patient donovan is doing great. She is doing fine, and swimming now at the [facility]. No rashes, no diarrhea. Past Medical History: Diagnosis Date DVT (deep venous thrombosis) 1998 Fibromyalgia 2001 Rheumatoid arteritis 1985 Outpatient Medications Prior to Visit Medication Sig Dispense Refill acetaminophen 325 MG tablet Take 2 tablets by mouth every 4 hours as needed for Mild Pain. 50 tablet 1 albuterol 108 (90 Base) MCG/ACT Aero Soln inhaler Inhale 2 puffs. fluticasone-salmeterol (ADVAIR DISKUS) 100-50 MCG/DOSE Aerosol Powder, breath activated inhaler Inhale 1 puff. folic acid 1 MG Tab tablet Take 1 mg by mouth. gabapentin 800 MG Tab hydroxychloroquine 200 MG Tab tablet Take by mouth. levothyroxine 125 MCG Tab tablet methocarbamol 750 MG Tab methotrexate 2.5 MG Tab tablet Take 20 mg by mouth every 7 days. montelukast 10 MG Tab tablet Take 10 mg by mouth. omeprazole [address] capsule potassium chloride 20 MEQ Tab CR tablet predniSONE 5 MG Tab tablet daily. SPIRIVA HANDIHALER 18 MCG inhalation capsule therapeutic multivitamin-minerals Tab Take 1 tablet by mouth daily. 30 tablet 0 warfarin 2.5 MG tablet Take 2.5 mg by mouth. zolpidem 10 MG Tab tablet Take 5 mg by mouth at bedtime. docusate 100 MG Cap capsule Take 1 capsule by mouth 2 times daily. (Patient not taking: Reported on04/03/2019) 60 capsule 0 ertapenem (INVANZ) in sodium chloride 0.9% (MB PLUS) 50 mL IVPB 1 g by Intravenous route every 24 hours. (Patient not taking: Reported on 04/03/2019) 42 Bag 0 fentaNYL 50 MCG/HR Patch 72 HR 50 mcg/hr patch oxyCODONE 5 MG Tab tablet Take 1-2 tabs po q 4-6 hours PRN pain. 60 tablet 0 No facility-administered medications prior to visit. Allergies Allergen Reactions Nitrofurantoin Other reaction(s): Other: See Comments Decreased heart rate And B/P Amoxicillin Nausea and Vomiting Sulfa Antibiotics Hives Examination: Gen: Comfortable in bed, no signs of distress HEENT: Normocephalic, atraumatic, Moist oral mucous membranes Neck: supple, Lungs: Clear to auscultation BL, anterior and posterior, without rales, rhonchi or wheezing Heart: Regular in rate and rhythm. Abd: Soft and non-distended. Non tender BSPx 4 Skin: No obvious rashes or cyanosis.dressing dry and intact Neuro: Grossly non-focal examination Right Knee: Stable incision site good, non tender. Still Leg distal area with no ulcer, no drainage, no discharge Labs: I reviewed labs. Bun/cr: 11/0.074 01/02/19: Wbc: 7.9 Hb: 12.1 Plt; 311 Crp: 32 ---->39.6--->29.5 Esr:94<---- 86-->52 Patient with 1: Cat bite right leg. 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 3: Rheumatoid arthritist Plans; Follow up labs. Cbc, bmp, esr, crp in 4months Continue on maintenance therapy with ampicillin Will see in 4months. All medications, and side effects, were adequately explained to patient. Antibiotic therapy risks and allergic reactions including rashes, diarrhea, C. diff colitis, angioedema and Irving-Rl like reaction were also discussed , and all questions answered, with patient expressing understanding. Over 50% of the clinic visit was involved in Discussion of Diagnosis, Plan, Infection Control , Prevention and Follow up. 25 minutes of clinical quality time spent on face to face evaluation of patient, with/without family member, and reviewing medical records. Maximiliano Mayo MD No notes on file documented in this encounter* Maximiliano Mayo MD - 12/04/2019 11:00 AM EST Chief Complaint Patient presents with Follow-up Infection Pt had rt leg joint. Pt states no fever or chills. Pt states doing well except for nausea from Oralantibiotic. HPI Patient seen, in clinic for a follow up. She has no new symptoms, no fever, no chills. Patient sayradha is doing great. She is doing fine, and swimming now at the [facility]. No rashes, no diarrhea. Again on 12/04/2019: Patient seen, in clinic for a follow up. She had complained of some discomfort taking the ampicillin po. States that it makes her sick. No fever, no diarrhea. Knee is doing good, no pains, no swellings, or redness. Patient is doing god generally, and still going to the [employer] and swimming. Patient cosiders stopping medications Past Medical History: Diagnosis Date DVT (deep venous thrombosis) 1998 Fibromyalgia 2001 Rheumatoid arteritis 1984 Outpatient Medications Prior to Visit Medication Sig Dispense Refill acetaminophen 325 MG tablet Take 2 tablets by mouth every 4 hours as needed for Mild Pain. 50 tablet 1 albuterol 108 (90 Base) MCG/ACT Aero Soln inhaler Inhale 2 puffs. fentaNYL 50 MCG/HR Patch 72 HR 50 mcg/hr patch fluticasone-salmeterol (ADVAIR DISKUS) 100-50 MCG/DOSE Aerosol Powder, breath activated inhaler Inhale 1 puff. folic acid 1 MG Tab tablet Take 1 mg by mouth. gabapentin 800 MG Tab hydroxychloroquine 200 MG Tab tablet Take by mouth. levothyroxine 125 MCG Tab tablet methocarbamol 750 MG Tab methotrexate 2.5 MG Tab tablet Take 20 mg by mouth every 7 days. montelukast 10 MG Tab tablet Take 10 mg by mouth. omeprazole [address] capsule potassium chloride 20 MEQ Tab CR tablet predniSONE 5 MG Tab tablet daily. SPIRIVA HANDIHALER 18 MCG inhalation capsule therapeutic multivitamin-minerals Tab Take 1 tablet by mouth daily. 30 tablet 0 warfarin 2.5 MG tablet Take 2.5 mg by mouth. zolpidem 10 MG Tab tablet Take 5 mg by mouth at bedtime. docusate 100 MG Cap capsule Take 1 capsule by mouth 2 times daily. (Patient not taking: Reported on04/03/2019) 60 capsule 0 ertapenem (INVANZ) in sodium chloride 0.9% (MB PLUS) 50 mL IVPB 1 g by Intravenous route every 24 hours. (Patient not taking: Reported on 04/03/2019) 42 Bag 0 oxyCODONE 5 MG Tab tablet Take 1-2 tabs po q 4-6 hours PRN pain. 60 tablet 0 No facility-administered medications prior to visit. Allergies Allergen Reactions Nitrofurantoin Other reaction(s): Other: See Comments Decreased heart rate And B/P Amoxicillin Nausea and Vomiting Sulfa Antibiotics Hives Examination: Gen: Comfortable in bed, no signs of distress HEENT: Normocephalic, atraumatic, Moist oral mucous membranes Neck: supple, Lungs: Clear to auscultation BL, anterior and posterior, without rales, rhonchi or wheezing Heart: Regular in rate and rhythm. Abd: Soft and non-distended. Non tender BSPx 4 Skin: No obvious rashes or cyanosis.dressing dry and intact Neuro: Grossly non-focal examination Right Knee: Stable incision site good, non tender. Still Leg distal area with no ulcer, no drainage, no discharge Labs: I reviewed labs. Bun/cr: 11/0.074 01/02/19: Wbc: 7.9 Hb: 12.1 Plt; 311 Crp: 32 ---->39.6--->29.5 Esr:94<---- 86-->52 Patient with 1: Cat bite right leg. 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 3: Rheumatoid arthritis, with increase in CRP? Plans; Follow up labs. Cbc, bmp, esr, crp in 4months Hold off ampicillin Will see in 4months. Over 50% of the clinic visit was involved in Discussion of Diagnosis, Plan, Infection Control , Prevention and Follow up. 25 minutes of clinical quality time spent on face to face evaluation of patient, with/without family member, and reviewing medical records. Maximiliano Mayo MD Nurse Note: Review of Systems Constitutional: Positive for appetite change. HENT: Negative. Eyes: Negative. Respiratory: Negative. Cardiovascular: Negative. Gastrointestinal: Positive for nausea. Endocrine: Negative. Genitourinary: Negative. Musculoskeletal: Negative. Skin: Negative. Allergic/Immunologic: Negative. Neurological: Negative. Hematological: Negative. Psychiatric/Behavioral: Negative. Nursing Assessment: Physical Exam Pt alert and oriented times 3. Pt states that she is doing well. But has loss of appetite and nausea that she attributes to the oral ampicillin. She states that she is back to exercising. * Patsy Shine LPN - 12/04/2019 11:00 AM EST Nurse Note: Review of Systems Constitutional: Positive for appetite change. HENT: Negative. Eyes: Negative. Respiratory: Negative. Cardiovascular: Negative. Gastrointestinal: Positive for nausea. Endocrine: Negative. Genitourinary: Negative. Musculoskeletal: Negative. Skin: Negative. Allergic/Immunologic: Negative. Neurological: Negative. Hematological: Negative. Psychiatric/Behavioral: Negative. Nursing Assessment: Physical Exam Pt alert and oriented times 3. Pt states that she is doing well. But has loss of appetite and nausea that she attributes to the oral ampicillin. She states that she is back to exercising. documented in this encounter* Félix Moulton, FINISHER [employer] - 12/25/2019 10:00 AM EST HPI: Patient is here today for evaluation of their operative knee. She is status post revision total knee arthroplasty for PJI. She is about a year out, reports that she is doing well and is pleased with the outcome of the intervention. The knee feels better now than it did before, and she is not having any new symptoms with it. She is swimming 3 days a week and feels the right leg is her stronger side. Dr. Mayo has stopped her chronic antibiotics at this point. PHYSICAL EXAM: The operative lower extremity is soft, nontender, full and supple motion. No pain, no impingement. No instability. She has full return of motion, 0-130 degrees, stable examination to varus and valgus stress with normal balance throughout the arc of motion. The contralateral extremityhas full motion, normal stability, no tenderness. Both extremities have normal neurovascular status. DIAGNOSTIC STUDIES/INTERPRETATION: Plain film radiographs reviewed. She has a cemented revision total knee arthroplasty in good position and alignment. No evidence of prosthetic implant loosening or migration. IMPRESSION: Stable status post total knee arthroplasty, doing well. PLAN: I am pleased with the outcome of intervention. She has made an excellent recovery. I expect continued improvement in strength and mobility moving forward. I recommend followup in 1 years for repeat clinical and radiographic examination or sooner if any new symptoms develop. Tylenol may be used to manage any aches and pains as needed. She will call with any questions or concerns in the meantime. Greater than 15 minutes was spent in review of old imaging, medical records and face to face time with the patient. DESIREE Appiah I have reviewed the findings of the clinical administrative support technician and agree with their assessment. Ortho Nurse Established Patient Intake Room#: 5 Date: 12/25/2019 10:14 AM Patient: Amna Sequeira MR#: [id number] : 1955 Age: 64 y.o. Patient is here today for her 1 year right TKA. Patient has no complaints and states that she is doing well. Pain scale is 0/10. Referring Physician: Félix Moulton APRN-CNP Insurance: Payor: MEDICARE [facility] [facility] / Plan: MEDICARE [facility] [facility] / Product Type: *No Product type* / Chief Complaint Patient presents with Right Knee - Follow-up Visit Vitals Temp 98.8 F (37.1 C) (Temporal) Ht 1.676 m (5' 6) Wt 83 kg (183 lb) BMI 29.54 kg/m Pain Recent Labs Lab Results Component Value Date CRP 28.4 (H) 12/04/2019 Lab Results Component Value Date SEDRATE 76 (H) 12/04/2019 Lab Results Component Value Date WBC 8.2 12/04/2019 HGB 13.0 12/04/2019 HCT 39.9 12/04/2019 PLATELET 311 12/04/2019 MCV 82.7 12/04/2019 History Past Medical History: Diagnosis Date Rheumatoid arteritis 1984 DVT (deep venous thrombosis) 1998 Fibromyalgia 2001 Family History: Her family history includes Breast Cancer in her sister; Cancer- Other in her brother; Coronary Artery Disease in her father and mother; Diabetes in her father; Stroke in her father. Social History: Her reports that she has been smoking cigarettes. She started smoking about 51 years ago. She has been smoking about 1.00 pack per day. She has never used smokeless tobacco. She reports that she does not drink alcohol or use drugs. Outpatient Medications Prior to Visit Medication Sig Dispense Refill albuterol 108 (90 Base) MCG/ACT Aero Soln inhaler Inhale 2 puffs. fentaNYL 50 MCG/HR Patch 72 HR 50 mcg/hr patch fluticasone-salmeterol (ADVAIR DISKUS) 100-50 MCG/DOSE Aerosol Powder, breath activated inhaler Inhale 1 puff. folic acid 1 MG Tab tablet Take 1 mg by mouth. gabapentin 800 MG Tab hydroxychloroquine 200 MG Tab tablet Take by mouth. levothyroxine 125 MCG Tab tablet methocarbamol 750 MG Tab methotrexate 2.5 MG Tab tablet Take 20 mg by mouth every 7 days. montelukast 10 MG Tab tablet Take 10 mg by mouth. omeprazole [address] capsule potassium chloride 20 MEQ Tab CR tablet predniSONE 5 MG Tab tablet daily. SPIRIVA HANDIHALER 18 MCG inhalation capsule therapeutic multivitamin-minerals Tab Take 1 tablet by mouth daily. 30 tablet 0 warfarin 2.5 MG tablet Take 2.5 mg by mouth. zolpidem 10 MG Tab tablet Take 5 mg by mouth at bedtime. acetaminophen 325 MG tablet Take 2 tablets by mouth every 4 hours as needed for Mild Pain. (Patientnot taking: Reported on 12/25/2019) 50 tablet 1 docusate 100 MG Cap capsule Take 1 capsule by mouth 2 times daily. (Patient not taking: Reported on04/03/2019) 60 capsule 0 ertapenem (INVANZ) in sodium chloride 0.9% (MB PLUS) 50 mL IVPB 1 g by Intravenous route every 24 hours. (Patient not taking: Reported on 04/03/2019) 42 Bag 0 oxyCODONE 5 MG Tab tablet Take 1-2 tabs po q 4-6 hours PRN pain. 60 tablet 0 No facility-administered medications prior to visit. Current Outpatient Medications: albuterol 108 (90 Base) MCG/ACT Aero Soln inhaler, Inhale 2 puffs., Disp: , Rfl: fentaNYL 50 MCG/HR Patch 72 HR 50 mcg/hr patch, , Disp: , Rfl: fluticasone-salmeterol (ADVAIR DISKUS) 100-50 MCG/DOSE Aerosol Powder, breath activated inhaler, Inhale 1 puff., Disp: , Rfl: folic acid 1 MG Tab tablet, Take 1 mg by mouth., Disp: , Rfl: gabapentin 800 MG Tab, , Disp: , Rfl: hydroxychloroquine 200 MG Tab tablet, Take by mouth., Disp: , Rfl: levothyroxine 125 MCG Tab tablet, , Disp: , Rfl: methocarbamol 750 MG Tab, , Disp: , Rfl: methotrexate 2.5 MG Tab tablet, Take 20 mg by mouth every 7 days. , Disp: , Rfl: montelukast 10 MG Tab tablet, Take 10 mg by mouth., Disp: , Rfl: omeprazole [address] capsule, , Disp: , Rfl: potassium chloride 20 MEQ Tab CR tablet, , Disp: , Rfl: predniSONE 5 MG Tab tablet, daily. , Disp: , Rfl: SPIRIVA HANDIHALER 18 MCG inhalation capsule, , Disp: , Rfl: therapeutic multivitamin-minerals Tab, Take 1 tablet by mouth daily., Disp: 30 tablet, Rfl: 0 warfarin 2.5 MG tablet, Take 2.5 mg by mouth., Disp: , Rfl: zolpidem 10 MG Tab tablet, Take 5 mg by mouth at bedtime. , Disp: , Rfl: acetaminophen 325 MG tablet, Take 2 tablets by mouth every 4 hours as needed for Mild Pain. (Patient not taking: Reported on 12/25/2019), Disp: 50 tablet, Rfl: 1 docusate 100 MG Cap capsule, Take 1 capsule by mouth 2 times daily. (Patient not taking: Reported on 04/03/2019), Disp: 60 capsule, Rfl: 0 ertapenem (INVANZ) in sodium chloride 0.9% (MB PLUS) 50 mL IVPB, 1 g by Intravenous route every 24 hours. (Patient not taking: Reported on 04/03/2019), Disp: 42 Bag, Rfl: 0 oxyCODONE 5 MG Tab tablet, Take 1-2 tabs po q 4-6 hours PRN pain., Disp: 60 tablet, Rfl: 0 Allergies: She is allergic to nitrofurantoin; amoxicillin; and sulfa antibiotics. * Anaya Hunter - 12/25/2019 10:00 AM EST Ortho Nurse Established Patient Intake Room#: 5 Date: 12/25/2019 10:14 AM Patient: Amna Sequeira MR#: [id number] : 1955 Age: 64 y.o. Patient is here today for her 1 year right TKA. Patient has no complaints and states that she is doing well. Pain scale is 0/10. Referring Physician: Saige, Félix, [employer] Insurance: Payor: MEDICARE MISC PFFS / Plan: MEDICARE MISC PFFS / Product Type: *No Product type* / Chief Complaint Patient presents with Right Knee - Follow-up Visit Vitals Temp 98.8 F (37.1 C) (Temporal) Ht 1.676 m (5' 6) Wt 83 kg (183 lb) BMI 29.54 kg/m Pain Recent Labs Lab Results Component Value Date CRP 28.4 (H) 12/04/2019 Lab Results Component Value Date SEDRATE 76 (H) 12/04/2019 Lab Results Component Value Date WBC 8.2 12/04/2019 HGB 13.0 12/04/2019 HCT 39.9 12/04/2019 PLATELET 311 12/04/2019 MCV 82.7 12/04/2019 History Past Medical History: Diagnosis Date Rheumatoid arteritis 1984 DVT (deep venous thrombosis) 1998 Fibromyalgia 2001 Family History: Her family history includes Breast Cancer in her sister; Cancer- Other in her brother; Coronary Artery Disease in her father and mother; Diabetes in her father; Stroke in her father. Social History: Her reports that she has been smoking cigarettes. She started smoking about 51 years ago. She has been smoking about 1.00 pack per day. She has never used smokeless tobacco. She reports that she does not drink alcohol or use drugs. Outpatient Medications Prior to Visit Medication Sig Dispense Refill albuterol 108 (90 Base) MCG/ACT Aero Soln inhaler Inhale 2 puffs. fentaNYL 50 MCG/HR Patch 72 HR 50 mcg/hr patch fluticasone-salmeterol (ADVAIR DISKUS) 100-50 MCG/DOSE Aerosol Powder, breath activated inhaler Inhale 1 puff. folic acid 1 MG Tab tablet Take 1 mg by mouth. gabapentin 800 MG Tab hydroxychloroquine 200 MG Tab tablet Take by mouth. levothyroxine 125 MCG Tab tablet methocarbamol 750 MG Tab methotrexate 2.5 MG Tab tablet Take 20 mg by mouth every 7 days. montelukast 10 MG Tab tablet Take 10 mg by mouth. omeprazole [address] capsule potassium chloride 20 MEQ Tab CR tablet predniSONE 5 MG Tab tablet daily. SPIRIVA HANDIHALER 18 MCG inhalation capsule therapeutic multivitamin-minerals Tab Take 1 tablet by mouth daily. 30 tablet 0 warfarin 2.5 MG tablet Take 2.5 mg by mouth. zolpidem 10 MG Tab tablet Take 5 mg by mouth at bedtime. acetaminophen 325 MG tablet Take 2 tablets by mouth every 4 hours as needed for Mild Pain. (Patientnot taking: Reported on 12/25/2019) 50 tablet 1 docusate 100 MG Cap capsule Take 1 capsule by mouth 2 times daily. (Patient not taking: Reported on04/03/2019) 60 capsule 0 ertapenem (INVANZ) in sodium chloride 0.9% (MB PLUS) 50 mL IVPB 1 g by Intravenous route every 24 hours. (Patient not taking: Reported on 04/03/2019) 42 Bag 0 oxyCODONE 5 MG Tab tablet Take 1-2 tabs po q 4-6 hours PRN pain. 60 tablet 0 No facility-administered medications prior to visit. Current Outpatient Medications: albuterol 108 (90 Base) MCG/ACT Aero Soln inhaler, Inhale 2 puffs., Disp: , Rfl: fentaNYL 50 MCG/HR Patch 72 HR 50 mcg/hr patch, , Disp: , Rfl: fluticasone-salmeterol (ADVAIR DISKUS) 100-50 MCG/DOSE Aerosol Powder, breath activated inhaler, Inhale 1 puff., Disp: , Rfl: folic acid 1 MG Tab tablet, Take 1 mg by mouth., Disp: , Rfl: gabapentin 800 MG Tab, , Disp: , Rfl: hydroxychloroquine 200 MG Tab tablet, Take by mouth., Disp: , Rfl: levothyroxine 125 MCG Tab tablet, , Disp: , Rfl: methocarbamol 750 MG Tab, , Disp: , Rfl: methotrexate 2.5 MG Tab tablet, Take 20 mg by mouth every 7 days. , Disp: , Rfl: montelukast 10 MG Tab tablet, Take 10 mg by mouth., Disp: , Rfl: omeprazole [address] capsule, , Disp: , Rfl: potassium chloride 20 MEQ Tab CR tablet, , Disp: , Rfl: predniSONE 5 MG Tab tablet, daily. , Disp: , Rfl: SPIRIVA HANDIHALER 18 MCG inhalation capsule, , Disp: , Rfl: therapeutic multivitamin-minerals Tab, Take 1 tablet by mouth daily., Disp: 30 tablet, Rfl: 0 warfarin 2.5 MG tablet, Take 2.5 mg by mouth., Disp: , Rfl: zolpidem 10 MG Tab tablet, Take 5 mg by mouth at bedtime. , Disp: , Rfl: acetaminophen 325 MG tablet, Take 2 tablets by mouth every 4 hours as needed for Mild Pain. (Patient not taking: Reported on 12/25/2019), Disp: 50 tablet, Rfl: 1 docusate 100 MG Cap capsule, Take 1 capsule by mouth 2 times daily. (Patient not taking: Reported on 04/03/2019), Disp: 60 capsule, Rfl: 0 ertapenem (INVANZ) in sodium chloride 0.9% (MB PLUS) 50 mL IVPB, 1 g by Intravenous route every 24 hours. (Patient not taking: Reported on 04/03/2019), Disp: 42 Bag, Rfl: 0 oxyCODONE 5 MG Tab tablet, Take 1-2 tabs po q 4-6 hours PRN pain., Disp: 60 tablet, Rfl: 0 Allergies: She is allergic to nitrofurantoin; amoxicillin; and sulfa antibiotics. documented in this encounter* Maximiliano Mayo MD - 04/08/2020 10:30 AM EDT Chief Complaint Patient presents with Follow-up Infection cellulitis-right knee HPI Patient seen, in clinic for a follow up. She has no new symptoms, no fever, no chills. Patient saysknee is doing great. She is doing fine, and swimming now at the [facility]. No rashes, no diarrhea. Again on 12/04/2019: Patient seen, in clinic for a follow up. She had complained of some discomfort taking the ampicillin po. States that it makes her sick. No fever, no diarrhea. Knee is doing good, no pains, no swellings, or redness. Patient is doing good generally, and still going to the [employer] [employer] and swimming. Patient cosiders stopping medications. Again on 04/08/2020: Patient seen, in clinic for a follow up. No new symptoms, no fever, no chills. Right knee is doing fine, no pains, and no swellinsg. Patient had lost a lot of weight. Past Medical History: Diagnosis Date DVT (deep venous thrombosis) 1998 Fibromyalgia 2001 Rheumatoid arteritis 1985 Outpatient Medications Prior to Visit Medication Sig Dispense Refill acetaminophen 325 MG tablet Take 2 tablets by mouth every 4 hours as needed for Mild Pain. (Patientnot taking: Reported on 12/25/2019) 50 tablet 1 albuterol 108 (90 Base) MCG/ACT Aero Soln inhaler Inhale 2 puffs. docusate 100 MG Cap capsule Take 1 capsule by mouth 2 times daily. (Patient not taking: Reported on04/03/2019) 60 capsule 0 ertapenem (INVANZ) in sodium chloride 0.9% (MB PLUS) 50 mL IVPB 1 g by Intravenous route every 24 hours. (Patient not taking: Reported on 04/03/2019) 42 Bag 0 fentaNYL 50 MCG/HR Patch 72 HR 50 mcg/hr patch fluticasone-salmeterol (ADVAIR DISKUS) 100-50 MCG/DOSE Aerosol Powder, breath activated inhaler Inhale 1 puff. folic acid 1 MG Tab tablet Take 1 mg by mouth. gabapentin 800 MG Tab hydroxychloroquine 200 MG Tab tablet Take by mouth. levothyroxine 125 MCG Tab tablet methocarbamol 750 MG Tab methotrexate 2.5 MG Tab tablet Take 20 mg by mouth every 7 days. montelukast 10 MG Tab tablet Take 10 mg by mouth. omeprazole [address] capsule oxyCODONE 5 MG Tab tablet Take 1-2 tabs po q 4-6 hours PRN pain. 60 tablet 0 potassium chloride 20 MEQ Tab CR tablet predniSONE 5 MG Tab tablet daily. SPIRIVA HANDIHALER 18 MCG inhalation capsule therapeutic multivitamin-minerals Tab Take 1 tablet by mouth daily. 30 tablet 0 warfarin 2.5 MG tablet Take 2.5 mg by mouth. zolpidem 10 MG Tab tablet Take 5 mg by mouth at bedtime. No facility-administered medications prior to visit. Allergies Allergen Reactions Nitrofurantoin Other reaction(s): Other: See Comments Decreased heart rate And B/P Amoxicillin Nausea and Vomiting Sulfa Antibiotics Hives Examination: Gen: Comfortable in bed, no signs of distress HEENT: Normocephalic, atraumatic, Moist oral mucous membranes Neck: supple, Lungs: Clear to auscultation BL, anterior and posterior, without rales, rhonchi or wheezing Heart: Regular in rate and rhythm. Abd: Soft and non-distended. Non tender. Skin: No obvious rashes or cyanosis.dressing dry and intact Neuro: Grossly non-focal examination Right Knee: Stable incision site good, non tender. Still Leg distal area with no ulcer, no drainage, no discharge Labs: I reviewed labs. Bun/cr: 11/0.074 01/02/19: Wbc: 7.9 Hb: 12.1 Plt; 311 Crp: 32 ---->39.6--->29.5--->11.2 Esr:94<---- 86-->52--->48 Patient with 1: Cat bite right leg. 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 3: Rheumatoid arthritis, with improve CRP? Plans; I reviewed labs Cbc, bmp, esr, crp. Patient off ampicillin Will see prn, 1yr Patient continue to go to the [facility], with swimming. Over 50% of the clinic visit was involved in Discussion of Diagnosis, Plan, Infection Control , Prevention and Follow up. 25 minutes of clinical quality time spent on face to face evaluation of patient, with/without family member, and reviewing medical records. Maximiliano Mayo MD Patient here for 4 month follow up of right knee cellulitis. No concerns at this time. Has not beenon any atb therapy, states she is doing well, has appetite back, fingernails have grown back. Patient denies any ill symptoms including fever, fatigue and chills. Had labs drawn this morning. * Elisabeth Steel LPN - 04/08/2020 10:30 AM EDT Patient here for 4 month follow up of right knee cellulitis. No concerns at this time. Has not beenon any atb therapy, states she is doing well, has appetite back, fingernails have grown back. Patient denies any ill symptoms including fever, fatigue and chills. Had labs drawn this morning. documented in this encounter* Maximiliano Mayo MD - 04/03/2019 11:00 AM EDT Chief Complaint Patient presents with Follow-up Cellulitis pt here for follow up to rt leg infection. Pt states cat scratch is better. small bruised area noted to rt lower leg. HPI Patient seen, in clinic for a follow up. She has no new symptoms, no fever, no chills. Patient saysknee is doing great. Patient did not tolerate doxycycline good, and she had to quit. She says knee is doing good, no swellings. Her Physical therapist had told her to message the area of the knne incision. Past Medical History: Diagnosis Date DVT (deep venous thrombosis) 1998 Fibromyalgia 2001 Rheumatoid arteritis 1985 Outpatient Medications Prior to Visit Medication Sig Dispense Refill albuterol 108 (90 Base) MCG/ACT Aero Soln inhaler Inhale 2 puffs. fentaNYL 50 MCG/HR Patch 72 HR 50 mcg/hr patch fluticasone-salmeterol (ADVAIR DISKUS) 100-50 MCG/DOSE Aerosol Powder, breath activated inhaler Inhale 1 puff. folic acid 1 MG Tab tablet Take 1 mg by mouth. gabapentin 800 MG Tab hydroxychloroquine 200 MG Tab tablet Take by mouth. levothyroxine 125 MCG Tab tablet methocarbamol 750 MG Tab methotrexate 2.5 MG Tab tablet Take 20 mg by mouth every 7 days. montelukast 10 MG Tab tablet Take 10 mg by mouth. omeprazole [address] capsule potassium chloride 20 MEQ Tab CR tablet predniSONE 5 MG Tab tablet daily. SPIRIVA HANDIHALER 18 MCG inhalation capsule therapeutic multivitamin-minerals Tab Take 1 tablet by mouth daily. 30 tablet 0 warfarin 2.5 MG tablet Take 2.5 mg by mouth. zolpidem 10 MG Tab tablet Take 5 mg by mouth at bedtime. acetaminophen 325 MG tablet Take 2 tablets by mouth every 4 hours as needed for Mild Pain. (Patientnot taking: Reported on 04/03/2019) 50 tablet 1 docusate 100 MG Cap capsule Take 1 capsule by mouth 2 times daily. (Patient not taking: Reported on04/03/2019) 60 capsule 0 ertapenem (INVANZ) in sodium chloride 0.9% (MB PLUS) 50 mL IVPB 1 g by Intravenous route every 24 hours. (Patient not taking: Reported on 04/03/2019) 42 Bag 0 oxyCODONE 5 MG Tab tablet Take 1-2 tabs po q 4-6 hours PRN pain. 60 tablet 0 No facility-administered medications prior to visit. Allergies Allergen Reactions Nitrofurantoin Other reaction(s): Other: See Comments Decreased heart rate And B/P Amoxicillin Nausea and Vomiting Sulfa Antibiotics Hives Examination: Gen: Comfortable in bed, no signs of distress HEENT: Normocephalic, atraumatic, Moist oral mucous membranes Neck: supple, Lungs: Clear to auscultation BL, anterior and posterior, without rales, rhonchi or wheezing Heart: Regular in rate and rhythm. Abd: Soft and non-distended. Non tender BSPx 4 Skin: No obvious rashes or cyanosis.dressing dry and intact Neuro: Grossly non-focal examination Right Knee: Stable incision site good, non tender. Leg distal area with ulcer no drainage, no discharge Labs: I reviewed labs.01/29/18 01/02/19: Wbc: 7.48 Hb: 11.0 Plt; 300 Bun/cr: 9/0.58 Crp: 32 Esr: Patient with 1: Cat bite right leg. 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 3: Rheumatoid arthritist Plans; Follow up labs. Cbc, bmp, esr, crp in 6 weeks. Start po abx on maintenance therapy with ampicillin Will see in 6 weeks. All medications, and side effects, were adequately explained to patient. Antibiotic therapy risks and allergic reactions including rashes, diarrhea, C. diff colitis, angioedema and Irving-Rl like reaction were also discussed , and all questions answered, with patient expressing understanding. Over 50% of the clinic visit was involved in Discussion of Diagnosis, Plan, Infection Control , Prevention and Follow up. 25 minutes of clinical quality time spent on face to face evaluation of patient, with/without family member, and reviewing medical records. Maximiliano Mayo MD Nurse Note: Review of Systems Constitutional: Negative. HENT: Negative. Eyes: Negative. Respiratory: Negative. Cardiovascular: Negative. Gastrointestinal: Negative. Endocrine: Negative. Genitourinary: Negative. Musculoskeletal: Positive for arthralgias. Pt has a hx of arthritis and restless legs Allergic/Immunologic: Negative. Neurological: Negative. Hematological: Negative. Psychiatric/Behavioral: Positive for sleep disturbance. Nursing Assessment: Physical Exam Pt alert and oriented times 3. Pt denies fever or chills. Pt states that her restless legs are bothering her today. * Patsy Shine LPN - 04/03/2019 11:00 AM EDT Nurse Note: Review of Systems Constitutional: Negative. HENT: Negative. Eyes: Negative. Respiratory: Negative. Cardiovascular: Negative. Gastrointestinal: Negative. Endocrine: Negative. Genitourinary: Negative. Musculoskeletal: Positive for arthralgias. Pt has a hx of arthritis and restless legs Allergic/Immunologic: Negative. Neurological: Negative. Hematological: Negative. Psychiatric/Behavioral: Positive for sleep disturbance. Nursing Assessment: Physical Exam Pt alert and oriented times 3. Pt denies fever or chills. Pt states that her restless legs are bothering her today. documented in this encounter* Maximiliano Mayo MD - 12/26/2018 2:45 PM EST History of Present Illness Patient seen, Known history of right TKR, and prosthetic right knee infection, s/p prolonged iv abx. Patient in clinic for a follow up. She had a cath bite couple of days ago on the right leg, and was treated at an outside hospital, of which culture was said to be positive for pasteurella, about 2days later she had developed right knee swellings, and was found with infection in her right knee, and was s/p I/D, and Polyexchange. She still has retained knee. Patient was finally discharged on iv ertapenem, and picc line. She is not complaining of any fever, no chills, but some right knee pains, no drainage. Past Medical History Past Medical History: Diagnosis Date DVT (deep venous thrombosis) 1998 Fibromyalgia 2001 Rheumatoid arteritis 1984 Past Surgical History Past Surgical History: Procedure Laterality Date KNEE REPLACEMENT Right 2018 THYROIDECTOMY TOTAL Bilateral 2013 KNEE REPLACEMENT Right 2012 HIP REPLACEMENT Right 2011 HYSTERECTOMY Bilateral 1993 REMOVAL CATARACT (PEM) Social History Tobacco Use Smoking status: Current Every Day Smoker Packs/day: 1.00 Types: Cigarettes Start date: 01/11/1968 Smokeless tobacco: Never Used Substance Use Topics Alcohol use: No Family History Family History Problem Relation Age of Onset Coronary Artery Disease Mother Coronary Artery Disease Father Diabetes Father Stroke Father Breast Cancer Sister Cancer- Other Brother Liver Prescriptions Prior to Admission Medications Prior to Admission Medication Sig Dispense Refill Last Dose fentaNYL 50 MCG/HR Patch 72 HR 50 mcg/hr patch Past Week at 01:49 fluticasone-salmeterol (ADVAIR DISKUS) 100-50 MCG/DOSE Aerosol Powder, breath activated inhaler Inhale 1 puff. 12/13/2018 at Unknown time folic acid 1 MG Tab tablet Take 1 mg by mouth. 12/12/2018 at Unknown time gabapentin 800 MG Tab 12/13/2018 at Unknown time hydroxychloroquine 200 MG Tab tablet Take by mouth. 12/12/2018 at Unknown time levothyroxine 125 MCG Tab tablet 12/13/2018 at Unknown time methocarbamol 750 MG Tab Past Month at Unknown time methotrexate 2.5 MG Tab tablet Take 20 mg by mouth every 7 days. Past Month at Unknown time montelukast 10 MG Tab tablet Take 10 mg by mouth. 12/12/2018 at Unknown time omeprazole [address] capsule 12/12/2018 at Unknown time oxyCODONE-acetaminophen 5-325 MG Tab per tablet Take 1 tablet by mouth every 6 hours as needed. 12/13/2018 at 1600 potassium chloride 20 MEQ Tab CR tablet 12/12/2018 at Unknown time predniSONE 5 MG Tab tablet daily. 12/12/2018 at Unknown time SPIRIVA HANDIHALER 18 MCG inhalation capsule 12/13/2018 at Unknown time warfarin 2.5 MG tablet Take 2.5 mg by mouth. Past Week at 1703 zolpidem 10 MG Tab tablet Take 10 mg by mouth. 12/12/2018 at 2100 albuterol 108 (90 Base) MCG/ACT Aero Soln inhaler Inhale 2 puffs. More than a month at Unknown time Taking nystatin 186916 UNIT/ML oral suspension Taking Allergies Allergen Reactions Nitrofurantoin Other reaction(s): Other: See Comments Decreased heart rate And B/P Amoxicillin Nausea and Vomiting Sulfa Antibiotics Hives Review of Systems Gen: Comfortable in bed, no signs of distress HEENT: Normocephalic, atraumatic, Moist oral mucous membranes Neck: supple, Lungs: Clear to auscultation BL, anterior and posterior, without rales, rhonchi or wheezing Heart: Regular in rate and rhythm. Without murmur, rub or gallop Abd: Soft and non-distended. Non tender BSPx 4 Skin: No obvious rashes or cyanosis.dressing dry and intact Neuro: Grossly non-focal examination Vitals: Blood pressure 96/54, pulse 108, temperature 98.8 F (37.1 C), temperature source Oral, resp. rate 14, height 1.676 m (5' 6), weight 85.7 kg (189 lb), SpO2 98 %. Physical Exam Constitutional: She is oriented to person, place, and time. On wheelchair+ HENT: Head: Normocephalic. Neck: Neck supple. Cardiovascular: Regular rhythm and normal heart sounds. No murmur heard. Pulmonary/Chest: No respiratory distress. She has no wheezes. She exhibits no tenderness. Abdominal: There is no tenderness. There is no rebound and no guarding. Obese+ Musculoskeletal: She exhibits edema. Right knee: with incision scar, and small swellings, tender+, no drainage, no ulceration. Lymphadenopathy: She has no cervical adenopathy. Neurological: She is alert and oriented to person, place, and time. Skin: Skin is warm. Right leg with scar, from cat bite+. Psychiatric: Judgment normal. Have Picc line in place+. Neurologic Exam Mental Status Oriented to person, place, and time. Labs: I reviewed cultures, and labs from 12/14/18 No growth uptil now. 12/26/18; Bun/cr; 9/0.72 Crp; 40 Wbc; 11.25 Hb; 10.4 Plt; 639 Assessment and Plan Patient with 1: Cat bite right leg. 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 Plans; Will continue with ertapenem iv for now. Follow up labs. Cbc, bmp, esr, crp weekly. Will see in 2 weeks. All medications, and side effects, were adequately explained to patient. Antibiotic therapy risks and allergic reactions including rashes, diarrhea, C. diff colitis, angioedema and Irving-Rl like reaction were also discussed , and all questions answered, with patient expressing understanding. Over 50% of the clinic visit was involved in Discussion of Diagnosis, Plan, Infection Control , Prevention and Follow up. 40 minutes of clinical quality time spent on face to face evaluation of patient, with/without family member, and reviewing medical records. * Patsy Shine LPN - 12/26/2018 2:45 PM EST Nurse Note: Review of Systems Nursing Assessment: Physical Exam documented in this encounter Assessments Diagnosis Cellulitis- Primary Cellulitis and abscess of unspecified site Infection and inflammatory reaction due to nervous system device, implant, and graft, initial encounter Acute postoperative pain of right knee AF (atrial fibrillation) Atrial fibrillation Prophylactic use of warfarin for venous thromboembolism Obesity: body mass index of 30.0-34.9 Obesity, unspecified Joint infection Unspecified infective arthritis, multiple sites Hypokalemia Hypopotassemia RA (rheumatoid arthritis) Rheumatoid arthritis History of DVT (deep vein thrombosis) Personal history of venous thrombosis and embolism Fibromyalgia Mylagia and myositis, unspecified Cellulitis of skin with lymphangitis Cellulitis and abscess of unspecified site Diagnosis Acute postoperative pain of right knee Diagnosis 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, initial encounter- Primary Diagnosis History of revision of total replacement of right knee joint- Primary Diagnosis Joint infection- Primary Unspecified infective arthritis, multiple sites Diagnosis Cellulitis of right lower extremity- Primary Cellulitis and abscess of leg, except foot Diagnosis 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 joint, initial encounter- Primary Diagnosis History of revision of total replacement of right knee joint- Primary Diagnosis Cellulitis of skin with lymphangitis- Primary Cellulitis and abscess of unspecified site Joint infection Unspecified infective arthritis, multiple sites Diagnosis Joint infection- Primary Unspecified infective arthritis, multiple sites Diagnosis Cellulitis of skin with lymphangitis- Primary Cellulitis and abscess of unspecified site Joint infection Unspecified infective arthritis, multiple sites Diagnosis History of total knee arthroplasty, right Diagnosis Joint infection Unspecified infective arthritis, multiple sites Diagnosis Cellulitis of skin with lymphangitis- Primary Cellulitis and abscess of unspecified site Diagnosis Cellulitis of right lower extremity- Primary Cellulitis and abscess of leg, except foot Joint infection Unspecified infective arthritis, multiple sites Advance Directives No Advanced Directives Records FoundLatest Code Status on File Code Status Date Activated Date Inactivated Comments DNRCC-ARREST 12/17/2018 1:14 PM I have dis cussed Amna Sequeira's Do Not Resuscitate wishes with her. She is in agreement with this code status. Full Code 12/14/2018 4:37 PM 12/17/2018 1:14 PM Latest Code Status on File Code Status Date Activated Date Inactivated Comments DNRCC-ARREST 12/17/2018 1:14 PM I have dis cussed Amna Gallaghern's Do Not Resuscitate wishes with her. She is in agreement with this code status. Full Code 12/14/2018 4:37 PM 12/17/2018 1:14 PM Advance Directive Response Recorded Date/ Time Advance Directives Yes February 11 014 1:39pm Advance Directive Response Recorded Date/ Time Do you have a Healthcare Power of Broach Trouble Shooter? Yes May 12, 2025 8:53am Advance Directives Yes February 11, 014 1:39pm Summary Purpose Family History No Family History Records Found Relationship Condition Age at Onset Recorded Date/T alcon sister Malignant neoplasm of breast Unknown Diabetes mellitus Unknown brother Malignant neoplasm of liver Unknown father Diabetes mellitus Unknown Cerebrovascular accident (CVA) Unknown Chief Complaint and Reason for Visit Chief Complaint Admit Date Nausea/vomiting March 04, 2025 9:33am 2 W FU March 18, 2025 9:04a m Reason for Visit Admit Date Early satiety March 04, 2025 9:33am Nausea March 04, 2025 9:33am Pancreatic insufficiency March 04, 2025 9 :33am Chief Complaint Admit Date Nausea/vomiting March 04, 2025 9:33am Chief Complaint Admit Date Nausea/vomiting March 04, 2025 9:33am 2 W FU March 18, 2025 9:04a m FREQUENT NAUSEA March 20, 2025 12:50 pm Reason for Visit Admit Date Early satiety March 04, 2025 9:33am Nausea March 04, 2025 9:33am Pancreatic insufficiency March 04, 2025 9 :33am Early satiety March 18, 2025 9:04a m Nausea March 18, 2025 9:04a m Chief Complaint Admit Date Nausea/vomiting March 04, 2025 9:33am 2 W FU March 18, 2025 9:04a m FREQUENT NAUSEA March 20, 2025 12:50 pm FATIGUE April 04, 2025 8:44a m Reason for Visit Admit Date Early satiety March 04, 2025 9:33am Nausea March 04, 2025 9:33am Pancreatic insufficiency March 04, 2025 9 :33am Early satiety March 18, 2025 9:04a m Nausea March 18, 2025 9:04a m Early satiety May 13, 2025 10:2 4am Nausea May 13, 2025 10:2 4am Chief Complaint Admit Date Nausea/vomiting March 04, 2025 9:33am 2 W FU March 18, 2025 9:04a m FREQUENT NAUSEA March 20, 2025 12:50 pm FATIGUE April 04, 2025 8:44a m Medication Questions May 27, 2025 9:3 0am Additional Source Comments Reason for Visit (unrecogniz ed section and content) Reason Comments Referral trying to determine if patient is a new referral. Status Reason Specialty Diagnoses / Procedures Referred By Contact Referred To Contact New Request Diagnoses History of revision of total replacement of right knee joint Procedures XR KNEE RIGHT 3 VIEWS Félix Moulton, [employer] [address] [place] [address] Reason Comments Post Op Visit Reason Comments Follow-up Cellulitis Pt states doing good . Went to [employer], still has redness to lower rt leg where cat scratched her. Pt has LIHSA PICC. Reason Comments Follow-up Reason Comments Order Request Reason Comments Follow-up Infection Pt states doing well . LISHA PICC pt denies pain or fever or chills. Reason Comments Medication Reaction Reason Comments Post Op Visit Reason Comments Follow-up Pt had labs this am. Cellulitis pt here to followw u p on cat scratch. Pts leg has healed and pt has bruise to rt lower leg. Pt denies problems or concerns at this time. Reason Comments Follow-up pt had labs this am. Cellulitis pt states that she i s doing well. she denies fever or chills states that she had a virus a week ago but that is gone. Pt states that she is swimming and now doing well. No fever or chills at this time. Reason Comments Follow-up Infection Pt had rt leg joint. Pt states no fever or chills. Pt states doing well except for nausea from Oral antibiotic. Status Reason Specialty Diagnoses / Procedures Referred By Contact Referred To Contact New Request Diagnoses History of total knee arthroplasty, right Procedures XR KNEE RIGHT 3 VIEWS Félix Moulton, FIN[employer] [address] [place] [address] Reason Comments Follow-up Infection cellulitis-right kne e Reason Comments Follow-up Cellulitis pt here for follow u p to rt leg infection. Pt states cat scratch is better. small bruised area noted to rt lower leg. Status Reason Specialty Diagnoses / Procedures Referred By Contact Referred To Contact New Request Diagnoses Hx of total knee arthroplasty, right Procedures XR KNEE RIGHT 3 VIEWS Félix Moulton, [employer] [address] [place] [address] Reason Comments Post-Discharge Follow Up Infection rt knee infected. Pt c/o pain05/08. Denies fever and chills. Status Reason Specialty Diagnoses / Procedures Referred By Contact Referred To Contact New Request Diagnoses History of revision of total replacement of right knee joint Procedures XR KNEE RIGHT 3 VIEWS Galindo Zepeda MD [address] [place] [address] Specialty Diagnoses / Procedures Referred By Contac t Referred To Contact Diagnoses Hx of total knee arthroplasty, right Procedures XR KNEE RIGHT 3 VIEWS Félix Moulton, [employer] [address] [place] [address] Referral ID Status Reason Start Date Expiration Date V isits Requested Visits Authorized [id number] New Request 12/16/2021 01/10/2023 [address] Specialty Diagnoses / Procedures Referred By Contac t Referred To Contact CT IMAGING Diagnoses Acute pancreatitis, unspecified complication status, unspecified pancreatitis type Procedures CT PANCREAS W IVCON CT ABDOMEN W/CONTRAST Aubree Ireland MD [address] [place] [address] [place] [address] Referral ID Status Reason Start Date Expiration Date V isits Requested Visits Authorized [id number] Closed Auto-Generate d Referral 08/03/2024 10/02/2024 1 1 Reason Comments Established Patient Follow up CT Scan/ h ospital follow up Specialty Diagnoses / Procedures Referred By Contac t Referred To Contact CT IMAGING Diagnoses Liver lesion Procedures CT LIVER W IVCON CT ABDOMEN W/CONTRAST Aubree Ireland MD [address] [place] [address] [place] [address] Referral ID Status Reason Start Date Expiration Date V isits Requested Visits Authorized [id number] Closed Auto-Generate d Referral 11/04/2024 01/03/2025 1 1 Reason Comments Follow Up INFORMATION SOURCE (unrecogn ized section and content) DATE CREATED AUTHOR 12/31/2018 [facility] ([place]) DATE CREATED AUTHOR AUTHOR'S ORGANIZ ATION 06/12/2020 [facility] DATE CREATED AUTHOR AUTHOR'S ORGANIZ ATION 12/23/2022 [facility] DATE CREATED AUTHOR AUTHOR'S ORGANIZ ATION 11/21/2023 [facility] DATE CREATED AUTHOR AUTHOR'S ORGANIZ ATION 05/26/2024 [facility] DATE CREATED AUTHOR AUTHOR'S ORGANIZ ATION 11/10/2024 [facility] DATE CREATED AUTHOR AUTHOR'S ORGANIZ ATION 03/17/2025 [facility] DATE CREATED AUTHOR AUTHOR'S ORGANIZ ATION [facility]/20[facility] DATE CREATED AUTHOR AUTHOR'S ORGANIZ ATION 05/18/2025 [facility] DATE CREATED AUTHOR AUTHOR'S ORGANIZ ATION 06/11/2025 [facility] Care Teams (unrecognized sec tion and content) Retail Sales Professional Relationship Specialty Start Date End Date Galindo Gutierrez MD [address] [facility] [place] [id number] PCP - General Family Medicine 12/26/16 Retail Sales Professional Relationship Specialty Start Date End Date Galindo Gutierrez MD [address] [facility] [place] [phone] PCP - General Family Medicine 12/26/16 Retail Sales Professional Relationship Specialty Start Date End Date Galindo Gutierrez MD [address] [facility] [place] [address] PCP - General Family Medicine 08/20/24 Retail Sales Professional Relationship Specialty Start Date End Date Galindo Gutierrez MD [address] [facility] [place] [address] PCP - General Family Medicine 08/20/24 Retail Sales Professional Relationship Specialty Start Date End Date Galindo Gutierrez MD [address] [facility] [place] [address] PCP - General Family Medicine 08/20/24 Retail Sales Professional Relationship Specialty Start Date End Date Galindo Gutierrez MD [address] [facility] [place] [address] PCP - General Family Medicine 08/20/24 Team Status: Active Member Role Status Dates Dr. Galindo Gutierrez MD Primary Care Provider Active Team Status: Inactive Member Role Status Dates Dr. Galindo Gutierrez MD Primary Care Provider Active Start: March 04, 2025 End: March 04, 2025 Dr. Galindo Gutierrez MD Referring Provider Active S tart: March 04, 2025 End: March 04, 2025 Allyson Barkley GREEN END MAN-C Attending Provider Active S tart: March 04, 2025 End: March 04, 2025 Team Status: Inactive Member Role Status Dates Dr. Galindo Gutierrez MD Primary Care Provider Active Start: March 04, 2025 End: March 04, 2025 Allyson Barkley [employer] MAN-C Attending Provider Active S tart: March 04, 2025 End: March 04, 2025 Allyson Barkley [employer]-C Referring Provider Active S tart: March 04, 2025 End: March 04, 2025 Team Status: Inactive Member Role Status Dates Dr. Galindo Gutierrez MD Primary Care Provider Active Start: March 18, 2025 End: March 18, 2025 Dr. Galindo Gutierrez MD Referring Provider Active S tart: March 18, 2025 End: March 18, 2025 Allyson Barkley NP-C Attending Provider Active S tart: March 18, 2025 End: March 18, 2025 Team Status: Inactive Member Role Status Dates Dr. Galindo Gutierrez MD Primary Care Provider Active Start: March 20, 2025 End: March 20, 2025 Allyson Barkley [employer] MAN-C Attending Provider Active S tart: March 20, 2025 End: March 20, 2025 Allyson Barkley [employer]-C Referring Provider Active S tart: March 20, 2025 End: March 20, 2025 Team Status: Inactive Member Role Status Dates Dr. Galindo Gutierrez MD Primary Care Provider Active Start: April 04, 2025 End: April 04, 2025 Dr. Galindo Gutierrez MD Attending Provider Active S tart: April 04, 2025 End: April 04, 2025 Dr. Galindo Gutierrez MD Referring Provider Active S tart: April 04, 2025 End: April 04, 2025 Team Status: Active Member Role Status Dates Dr. Galindo Gutierrez MD Primary Care Provider Active Start: April 04, 2025 Dr. Freedom Collier MD Attending Provider Activ e Start: April 04, 2025 Team Status: Active Member Role/Relationship Status Dates Dr. Galindo Gutierrez MD Primary Care Provider Active Team Status: Inactive Member Role/Relationship Status Dates Dr. Galindo Gutierrez MD Primary Care Provider Active Start: March 04, 2025 End: March 04, 2025 Dr. Galindo Gutierrez MD Referring Provider Active S tart: March 04, 2025 End: March 04, 2025 Allyson Barkley [employer] MAN-C Attending Provider Active S tart: March 04, 2025 End: March 04, 2025 Team Status: Inactive Member Role/Relationship Status Dates Dr. Galindo Gutierrez MD Primary Care Provider Active Start: March 04, 2025 End: March 04, 2025 Allyson Barkley GREEN [employer] MAN-C Attending Provider Active S tart: March 04, 2025 End: March 04, 2025 Allyson Barkley [employer]-C Referring Provider Active S tart: March 04, 2025 End: March 04, 2025 Team Status: Inactive Member Role/Relationship Status Dates Dr. Galindo Gutierrez MD Primary Care Provider Active Start: March 18, 2025 End: March 18, 2025 Dr. Galindo Gutierrez MD Referring Provider Active S tart: March 18, 2025 End: March 18, 2025 Allyson Barkley GRE[employer] MAN-C Attending Provider Active S tart: March 18, 2025 End: March 18, 2025 Team Status: Inactive Member Role/Relationship Status Dates Dr. Galindo Gutierrez MD Primary Care Provider Active Start: March 20, 2025 End: March 20, 2025 Allyson Barkley GREEN [employer] MAN-C Attending Provider Active S tart: March 20, 2025 End: March 20, 2025 Allyson Barkley [employer] MAN-C Referring Provider Active S tart: March 20, 2025 End: March 20, 2025 Team Status: Inactive Member Role/Relationship Status Dates Dr. Galindo Gutierrez MD Primary Care Provider Active Start: April 04, 2025 End: April 04, 2025 Dr. Galindo Gutierrez MD Attending Provider Active S tart: April 04, 2025 End: April 04, 2025 Dr. Galindo Gutierrez MD Referring Provider Active S tart: April 04, 2025 End: April 04, 2025 Team Status: Active Member Role/Relationship Status Dates Dr. Galindo Gutierrez MD Primary Care Provider Active Start: April 04, 2025 Dr. Freedom Collier MD Attending Provider Activ e Start: April 04, 2025 Team Status: Inactive Member Role/Relationship Status Dates Dr. Galindo Gutierrez MD Primary Care Provider Active Start: May 13, 2025 End: May 13, 2025 Dr. Galindo Gutierrez MD Referring Provider Active S tart: May 13, 2025 End: May 13, 2025 Dr. Noe Wright DO Attending Provider Active Start: May 13, 2025 End: May 13, 2025 Team Status: Active Member Role/Relationship Status Dates Dr. Galindo Gutierrez MD Primary Care Provider Active Start: May 13, 2025 Dr. Galindo Gutierrez MD Referring Provider Active S tart: May 13, 2025 Dr. Noe Wright DO Attending Provider Active Start: May 13, 2025 Dr. Noe Wright DO Other Provider Active St art: May 13, 2025 Team Status: Inactive Member Role/Relationship Status Dates Dr. Galindo Gutierrez MD Primary Care Provider Active Start: May 27, 2025 End: May 27, 2025 Dr. Galindo Gutierrez MD Referring Provider Active S tart: May 27, 2025 End: May 27, 2025 MAGI Gray Attending Provider Active S tart: May 27, 2025 End: May 27, 2025 Source Comments (unrecognize d section and content) In the event this informatio n is protected by the Federal Confidentiality of Alcohol and Drug Abuse Patient Records regulations: The Federal rules restrict any use of the information to criminally investigate or prosecute any alcohol or drug abuse patient.[facility] the event this information is protected by the Federal Confidentiality of Alcohol and Drug Abuse Patient Records regulations: The Federal rules restrict any use of the information to criminally investigate or prosecute any alcohol or drug abuse patient.[facility] the event this information is protected by the Federal Confidentiality of Alcohol and Drug Abuse Patient Records regulations: The Federal rules restrict any use of the information to criminally investigate or prosecute any alcohol or drug abuse patient.[facility] the event this information is protected by the Federal Confidentiality of Alcohol and Drug Abuse Patient Records regulations: The Federal rules restrict any use of the information to criminally investigate or prosecute any alcohol or drug abuse patient.[facility] the event this information is protected by the Federal Confidentiality of Alcohol and Drug Abuse Patient Records regulations: The Federal rules restrict any use of the information to criminally investigate or prosecute any alcohol or drug abuse patient.[facility] the event this information is protected by the Federal Confidentiality of Alcohol and Drug Abuse Patient Records regulations: The Federal rules restrict any use of the information to criminally investigate or prosecute any alcohol or drug abuse patient.[facility] Goals (unrecognized section and content) Goals may be documented in a n alternate sectionGoals may be documented in an alternate sectionGoals may be documented in an alternate sectionGoals may be documented in an alternate section FOR RECORDS PERTAINING TO PATIENTS WHO ARE OR HAVE BEEN ENROLLED IN A CHEMICAL DEPENDENCY/SUBSTANCEABUSE PROGRAM, SOME INFORMATION MAY BE OMITTED. This clinical summary was aggregated from multiple sources. Caution should be exercised in using it in the provision of clinical care. This summary normalizes information from multiple sources, and as a consequence, information in this document may materially change the coding, format and clinical context of patient data. In addition, data may be omitted in some cases. CLINICAL DECISIONS SHOULD BE BASED ON THE PRIMARY CLINICAL RECORDS. [facility] [employer] [facility]. provides no warranty or guarantee of the accuracy or completeness of information in this document.
[2025-06-19 21:42] LABS: Anion Gap 14 (5-15); BUN 8 mg/dL (4-19); BUN/Creat Ratio 11.9 RATIO (10-20); Calcium,Total 8.6 mg/dL (7.6-11.0); Carbon Dioxide 24.0 mmol/L (21.0-32.0); Chloride 100 mmol/L (98-108); Estimated Creatinine Clearance 72.54 ml/min (50-250); Glucose 88 mg/dL (70-99); Potassium 3.9 mmol/L (3.3-5.1)
--- NOTE | 2025-06-19 21:51 | HP.PCM.HOS_ITS ---
HPI - General General Date of Admission: 06/19/25 Date of Service: 06/19/25 Chief Complaint: Dyspnea, wheezing, cough. HPI Narrative The patient is a 70 y/o F w/ PMHx: Obesity, Hypothyroidism, Rheumatoid lung disease on chronic prednisone therapy, HTN, HLD, GERD, Hx VTE, RLS, Tobacco use, Pancreatic pseudocyst with insufficiency and early satiety, CKD stage II per GFR trending, Anxiety and Depression, COPD/Asthma, Chronic microcytic anemia who presents to the [facility] ED on 06/19/2025 with history of 2 days of worsening dyspnea, wheezing as well as increased coughing using her home albuterol and inhalers although she does report not having a nebulizer machine with ongoing 1 pack/day cigarette tobacco usage and given worsened symptoms not improving prompted eventual ED evaluation. She denies any associated fever, chills or pleuritic chest pain. She notes feeling significantly improved since initial ED arrival. Her daughter who is present does report she has had a cough herself for the last 4 days. Patient does report feeling congested but when she blows her nose nothing comes out. Workup in the ED included T98, heart rate 97, BP 154/92, respiratory rate 29, 80% on room air improving to 94% on 3 L nasal cannula with transient heart rate increased to 129 however most recent repeat heart rate 100, CBC with WBC 12, hemoglobin 8.9, MCV 73.6, platelet 430 with left shift, BMP w/ BUN/creatinine 8/0.68, GFR 94, troponin 12, chest x-ray no acute cardiopulmonary findings. In the ED patient is administered albuterol, DuoNeb therapies as well as Solu-Medrol 125 mg IV x 1. [facility] Medical History (Updated 06/19/25 @ 21:[address] Phillip Reynolds MD) CKD (chronic kidney disease), stage II History of stress test Wears hearing aid Wears dentures Wears glasses Thyroid disease Walker as ambulation aid Ambulates with cane Rheumatoid arthritis Low iron DVT (deep venous thrombosis) Restless legs Smoker History of echocardiogram Cardiology follow-up encounter Hypertension Pancreatic pseudocyst Severe protein-calorie malnutrition Perforated gastric ulcer COPD (chronic obstructive pulmonary disease) Anxiety Chronic anticoagulation Asthma Fibromyalgia Anemia Osteoporosis GERD without esophagitis Insomnia Dysphagia Osteoarthritis Home Medications ?Medication ?Instructions ?Recorded ?Last Taken ?Type albuterol sulfate 90 mcg/actuation 1 puff inhalation D AILY 07/29/13 Unknown History aerosol inhaler (Ventolin HFA) fluticasone 500 mcg-salmeterol 50 1 puff inhalation .q d 07/29/13 Unknown History mcg/dose blistr powdr for inhalation (Advair Diskus) folic acid 1 mg tablet 1 mg PO DAILY@0800 07/29/13 Unknown History montelukast 10 mg tablet 10 mg PO DAILY 07/29/13 Unkn own History tiotropium bromide 18 mcg capsule 1 puff inhalation DA RAFIA 07/29/13 Unknown History with inhalation device (Spiriva with HandiHaler) warfarin 2.5 mg tablet (Jantoven) 2.5 mg PO QODAY 07/0205/10/25 History warfarin 5 mg tablet (Jantoven) 5 mg PO QODAY 07/29/13 05/09/25 History gabapentin 800 mg tablet 800 mg PO TID 07/28/24 Unkno wn History isosorbide mononitrate 30 mg 30 mg PO DAILY 07/28/24 U nknown History tablet,extended release 24 hr levothyroxine 175 mcg tablet 175 mcg PO DAILY 07/28/24 Unknown History oxycodone 10 mg tablet 10 mg PO Q4H PRN pain Unknown History potassium chloride 20 mEq 20 meq PO DAILY 07/28/24 Unk nown History tablet,extended release(part/cryst) (Klor-Con M) alprazolam 0.25 mg tablet 0.25 mg PO TID PRN anxiety 1 Unknown History melatonin 5 mg tablet 5 mg PO HS PRN sleep 4 Unknown History methocarbamol 750 mg tablet 500 mg PO Q6H PRN Anxiety 08/08/24 Unknown History (Robaxin-750) omeprazole 40 mg capsule,delayed 40 mg PO QDAY 4 Unknown History release ondansetron 4 mg disintegrating 4 mg PO Q6H 08/08/24 U nknown History tablet sucralfate 100 mg/mL oral 10 ml PO QACHS 08/08/24 Unkn own History suspension (Carafate) Lactobacillus acidophilus 2,000 mmu cells PO DAILY Unknown History (Acidophilus capsule) alendronate 5 mg tablet 7 mg PO DAILY 05/13/25 Unkno wn History prednisone 10 mg tablet 10 mg PO DAILY 05/13/25 Unkn own History erythromycin 250 mg tablet 250 mg PO TID 06/19/25 Unkn own History fluconazole 150 mg tablet 150 mg PO QWEEK 06/19/25 Unk nown History Allergy/AdvReac Type Severity Reaction Status Date / Time Sulfa (Sulfonamide Allergy Hives AND Verified 06/19/25 20:29 Antibiotics) RESP DISTRESS amoxicillin (From Augmentin) AdvReac Other Verified 06/19/25 20:29 clavulanic acid (From AdvReac Other Verified 06/19/25 20:29 Augmentin) codeine AdvReac Itching Verified 06/19/25 20:29 nitrofurantoin AdvReac DECREASED Verified 06/19/25 20:29 (Nitrofurantoin) HEART RATE Family History Sister Breast cancer Diabetes Brother Liver cancer Diabetes Father Diabetes CVA (cerebral vascular accident) Surgical History History of cardiac catheterization History of tonsillectomy History of thyroidectomy History of right hip replacement History of total right knee replacement History of hysterectomy History of carpal tunnel surgery of right wrist Social History Smoking Status: Current every day smoker tobacco type: cigarettes alcohol intake: never ROS ROS Narrative Admission Review of Systems: CONSTITUTIONAL: No weight loss, fever, chills, + weakness or fatigue. HEENT: + Congestion. Eyes: No visual loss, blurred vision, double vision or yellow sclerae. Ears, Nose, Throat: No hearing loss, sneezing, runny nose or sore throat. SKIN: No rash or itching, lesions, wounds. CARDIOVASCULAR: No chest pain, chest pressure or chest discomfort, palpitations, edema, orthopnea, syncopal events. RESPIRATORY: + Dyspnea, nonproductive cough, wheezing. No hemoptysis. GASTROINTESTINAL: No anorexia, nausea, vomiting or diarrhea, abdominal pain, melena, BRBPR. GENITOURINARY: No dysuria, frequency, urgency or retention. NEUROLOGICAL: No headache, dizziness, syncope, paralysis, ataxia, numbness or tingling in the extremities, focal weakness, change in bowel or bladder control, seizure. MUSCULOSKELETAL: + muscle, back pain, joint pain or stiffness. HEMATOLOGIC: + Chronic anemia, easy bleeding/bruising. LYMPHATICS: No enlarged nodes. No history of splenectomy. PSYCHIATRIC: + History of anxiety and depression. ENDOCRINOLOGIC: No reports of sweating, cold or heat intolerance. No polyuria or polydipsia. ALLERGIES: + History of asthma with allergic rhinitis. Vital Signs Vital Signs Vital Signs: 06/19/25 20:28 06/19/25 20:28 06/19/25 20:34 Temperature 98 F 98 F Temperature Source Temporal Oral Pulse Rate 97 129 H Respiratory Rate 29 H 28 H Respiratory Effort Respiratory Pattern Blood Pressure 154/92 H 160/92 H Blood Pressure Mean 112 114 Pulse Ox 80 89 85 Oxygen Delivery Method Room Air Room Air Room Air Oxygen Flow Rate (L/min) 06/19/25 20:37 06/19/25 20:45 06/19/25 20:45 Temperature Temperature Source Pulse Rate 100 Respiratory Rate 22 H Respiratory Effort Short of Breath Respiratory Pattern Tachypnea Tachypnea Blood Pressure Blood Pressure Mean Pulse Ox 94 Oxygen Delivery Method Nasal Cannula Nasal Cannula Oxygen Flow Rate (L/min) 3 3 06/19/25 21:03 06/19/25 21:19 06/19/25 21:19 Temperature Temperature Source Pulse Rate 101 H Respiratory Rate 23 H Respiratory Effort Respiratory Pattern Blood Pressure Blood Pressure Mean Pulse Ox 94 88 92 Oxygen Delivery Method Nasal Cannula Room Air Nasal Cannula Oxygen Flow Rate (L/min) 3 2 06/19/25 21:31 06/19/25 21:35 06/19/25 21:49 Temperature 98 F 98 F Temperature Source Axillary Pulse Rate 104 H 105 H 101 H Respiratory Rate 18 20 H 18 Respiratory Effort Respiratory Pattern Normal Blood Pressure 131/66 H 161/86 H Blood Pressure Mean 87 111 Pulse Ox 92 92 Oxygen Delivery Method Nasal Cannula Oxygen Flow Rate (L/min) 2 Weight Weight: 206 lb 2.115 oz Body Mass Index (BMI) 35.4 Physical Exam Narrative Physical Examination: General: Awake, alert, oriented x 3 and cooperative, seated upright in bed, fatigued but notes she is feeling improved since initial ED arrival, no respiratory distress evident. Skin: Normal color, normal turgor, no icterus, no cyanosis except occasional stage ecchymoses, abrasion. HEENT: AT/NC, EOMI, PERRLA, mildly dry MM, no carotid bruits or JVD noted. Lungs: Notably diminished, greater bases, coarse bilaterally, ongoing primarily expiratory wheezing, no evidence of any current distress, reports she is breathing with greater ease since initial ED arrival. Heart: Mildly tachycardic with regular rhythm; no gallop, rub audible. Abdomen: Soft, obese, NTTP, ND, mildly hyperactive BS, no appreciated HSM. Extremities: No cyanosis, no clubbing, mild bilateral ankle edema, chronic. Neurological: Patient awake, alert, oriented as noted, cognitive function intact; pupils equally reactive to light and accommodation, cranial nerves grossly normal, moving all 4 extremities, no focal deficits, strength moderately to severely globally decreased. Psychiatric: Affect appears fatigued, notes feeling improved since initial ED arrival, no respiratory distress currently, no acute evidence of depressive or anxiety feelings but does have underlying history. Results Lab / Micro Data 06/19/25 20:44 06/19/25 20:44 Labs: Laboratory Results - last 24 hr 06/19/25 20:44: WBC 12.0 H, RBC 4.39, Hgb 8.9 L, Hct 32.3 L, MCV 73.6 L, MCH 20.3 L, MCHC 27.6 L, RDW Std Deviation 55.8 H, RDW Coeff of Demetrice 21.2 H, Plt Count 430, MPV 8.4, Immature Gran % (Auto) 0.400, Neut % (Auto) 76.9 H, Lymph % (Auto) 14.6 L, [place] % (Auto) 6.4, Eos % (Auto) 1.2, Baso % (Auto) 0.5, Absolute Neuts (auto) 9.3 H, Absolute Lymphs (auto) 1.75, Nucleated RBC % 0.2, Sodium 138, Potassium 3.9, Chloride 100, Carbon Dioxide 24.0, Anion Gap 14, BUN 8, C reatinine 0.68 L, Estim Creat Clear Calc 72.54, Est GFR (MDRD) Non-Af 94, BUN/Creatinine Ratio 11.9, Glucose 88, Calcium 8.6, Troponin T High Sens 12 Imaging Radiology Impression Chest X-Ray 06/19/25 20:51 IMPRESSION: No Acute Findings. Reading Location: [facility] Assessment & Plan Assessment/Plan (1) Hypoxia: (2) Acute exacerbation of chronic obstructive pulmonary disease (COPD): PLAN: Plan The patient is a 70 y/o F w/ PMHx: Obesity, Hypothyroidism, Rheumatoid lung disease on chronic prednisone therapy, HTN, HLD, GERD, Hx VTE, RLS, Tobacco use, Pancreatic pseudocyst with insufficiency and early satiety, CKD stage II per GFR trending, Anxiety and Depression, COPD/Asthma, Chronic microcytic anemia who presents to the [facility] ED on 06/19/2025 with history of 2 days of worsening dyspnea, wheezing as well as increased coughing using her home albuterol and inhalers although she does report not having a nebulizer machine with ongoing 1 pack/day cigarette tobacco usage and given worsened symptoms not improving prompted eventual ED evaluation. #1. Acute Hypoxia secondary to Acute on Chronic COPD/asthma exacerbation complicated by underlying history of rheumatoid associated lung disease on chronic oral prednisone therapy as well as allergic rhinitis: Will admit to MS, maintain on oxygen with wean as tolerated to room air, continue ATC duonebs, PRN albuterol, IV methylprednisolone, HOB, IS parameters, will obtain sputum Cx, respiratory viral panel, procalcitonin, will hold on immediately abx therapy but low threshold to add if appropriate. Will continue patient home montelukast regimen. #2 Acute on Chronic microcytic anemia: Admission hemoglobin 8.9, MCV 73.6, baseline hemoglobin noted previously primarily 11 range, continue to trend. Per current list does not appear to be on any chronic iron supplementation but is following with gastroenterology and as noted on PPI and sucralfate. Will obtain iron panel, ferritin and guaiac given patient is anticoagulated and her hemoglobin is worsening which also may be contributing to her hypoxia #1. #3 Chronic Kidney Disease Stage II per GFR trending: Admission BUN/Cr 8/0.68, GFR 94 although again has vacillated and primarily been consistent with stage II, most recently previous to this unfortunately nearly 1 year prior 07/28/2024 GFR 82, baseline renal function primarily 0.8-1.0, repeat BMP in AM. #4. Hypertension: Continue home regimen including isosorbide, PRN hydralazine. #5. Hyperlipidemia: Noted history, not on regimen, defer to outpatient. #6. Anxiety and depression: Will continue low dose 3 times daily as needed alprazolam however will hold for sedation, encourage continued follow-up outpatient with PCP as previously arranged. #7. Hypothyroidism: Status post previous thyroidectomy, will continue patient home levothyroxine regimen. #8. History of VTE: Will continue Coumadin with INR trending. #9. GERD: Will continue patient home PPI and sucralfate regimen. #10. Pancreatic pseudocyst with pancreatic insufficiency, early satiety: Most recent gastroenterology follow-up visit noted 05/27/2025, noted current plan to stop metoclopramide, initiate on erythromycin at that point to 50 mg p.o. 3 times daily Q AC 30 minutes x 3 weeks trial, encourage follow-up with gastroenterology. #11. Tobacco Abuse: Encouraged cessation, inpatient consultation per RT, NR if desired. #12. Restless leg syndrome: Per current list does not appear to be on any regimen, if issue arises may consider addition. #13. Obesity: Weight loss and lifestyle changes encouraged. #14. DVT prophylaxis: Will continue Coumadin with INR trending. #15. CODE status: Patient EDIE is her daughter who is present and living will is currently in place. Discussed CODE status at length including difference between FULL code, DNR-CCA and DNR-CC status. Following discussions about the differences in these status, requested Full Code status. Advanced Care Planning Face to Face Time: 16 minutes. Charges/Coding Visit Charges Inpatient E&M: 43406 Init Hosp L3 Procedures Hospitalists Procedures: 21573 Advncd Care Plan 30 Min
--- OUTSIDE RECORDS SUMMARY | 2025-06-19 22:12 | XMS RPT_ITS | CCD ---
Author Organization [facility] Care Team Providers Care Plasma Processing Technician Name Role Phone Galindo Gutierrez Primary Care Provider [phone] Galindo Gutierrez MD Primary Care Provider [phone] GALINDO GUTIERERZ Primary Care Unavailable SELF, SELF Referring Unavailable GALINDO ZEPEDA Attending Unavailable GALINDO ZEPEDA Attending Unavailable GALINDO ZEPEDA Referring Unavailable GALINDO GUTIERREZ Primary Care Unavailable TULIO LOVE~[phone], TULIO Pond Admitting Unavailable GRACE LOVE~[phone], GRACE JUNIOR Attending Unavailable GALINDO GUTIERREZ Primary Care Unavailable GALINDO GUTIERREZ Consulting Unavailable GALINDO GUTIERREZ Consulting Unavailable LETY LOVE, DR IBRAHIM Consulting Mynor DAVIDSON MD, DR IBRAHIM Consulting Mynor ALCANTAR MD, DR ELLIOT Carrington Consulting Unavail yaritza ALCANTAR MD, DR ELLIOT Carrington Consulting Unavail able TULIO LOVE, ELVER Pond Consulting Unavailable TULIO LOVE, ELVER Pond Consulting Unavailable IKER LOVE, ANNA Deshpande Consulting Unavailable IKER LOVE, ANNA Deshpande Consulting Unavailable NGHIA PAIrinaC, SATYA R Consulting Unavailabl franci AGRAWAL PA-C, SATYA R Consulting Unavaileryn EDWARDS MD, HEAVEN JUNIOR Consulting Unavaileryn EDWARDS MD, [facility] Consulting Unavaileryn WOODS MD, KETTY Briones Consulting Unavailable PEGGY LOVE, KETTY Briones Consulting Unavailable ELISEO LOVE, DR SONYA Gillette Consulting Unavaila noemy GOMES MD, DR SONYA Gillette Consulting Unavaila BA Ye MD Attending Unavailable BA MENENDEZ MD Primary Care Unavailable BA MENENDEZ MD Admitting Unavailable Unavailable Primary Care Provider Galindo Cobb MD Primary Care Provider [phone] AUBREE IRELAND Referring Unavailable AUBREE IRELAND Referring Unavailable GALINDO GUTIERREZ Primary Care Unavailable AUBREE IRELAND Referring Unavailable GALINDO GUTIERREZ Primary Care Unavailable Brenda LOVE, Dr. Medley Primary Care Provider Dr. Galindo Gutierrez MD Referring Provider Filippo CARE PARTNER-C, Allyson Attending Provider Filippo CARE PARTNER-C, Allyson Referring Provider GALINDO GUTIERREZ Admitting Unavailable BROWN, GALINDO Attending [...] UNKNOWN Consulting Unavailable PROVIDER, UNKNOWN Consulting Unavailable BA MENENDEZ MD Admitting Unavailable BA MENENDEZ MD [...] Provider Dr. Noe Wright DO Other Provider [phone] Galindo Gutierrez Primary Care Unavailable Allyson Barkley [...] Drug Allergy 12-13-19 19 Nausea and Vomiting [facility] (20 sources) Nitrofurantoin Drug Allergy 10-26-20 11 DECREASED HEART RATE [facility] (20 sources) Sulfonamides (Antibiotic) Propensity to adverse reactions to drug 02-07-20 14 [facility] (1 source) Amoxicillin / Clavulanate Drug Allergy 10-30-19 14 [facility] (1 source) Morphine Drug Allergy 05-06-19 55 [facility] (1 source) Nitrofurantoin Drug Allergy 05-06-19 55 [facility] (1 source) oxyCODONE Drug Allergy 10-30-19 16 [facility] (3 sources) Sulfonamides (Antibiotic); Translations: [SULFA (SULFONAMIDE ANTIBIOTICS)] Drug allergy (disorder) 05-06-19 55 [facility] (2 sources) Amoxicillin Drug Allergy [facility] (2 sources) Codeine Drug Allergy [facility] (2 sources) Nitrofurantoin Drug Allergy [facility] (4 sources) Sulfamethoxazole; Translations: [SULFAMETHOXAZOLE] Drug Allergy 10-26-20 11 [facility] (2 sources) Sulfamethoxazole / Trimethoprim Drug Allergy [facility] (2 sources) Sulfonamides (Antibiotic) Drug allergy (disorder) [facility] (8 sources) NITROFURANTOIN, MACROCRYSTALS / Nitrofurantoin, Monohydrate; Translations: [NITROFURANTOIN MONOHYD/M-CRYST] Drug Allergy 10-26-20 11 Other: See Comments [facility] (6 sources) Sulfamethoxazole Drug Allergy 10-26-20 11 Rash [facility] (6 sources) Sulfonamides (Antibiotic) Drug Allergy 02-07-20 14 [facility] (6 sources) Clavulanate Drug Allergy 03-04-20 25 Other [facility] (6 sources) Codeine Drug Allergy 03-04-20 25 Itching [facility] (6 sources) Sulfonamides (Antibiotic) Allergy to substance 03-04-20 25 Hives AND RESP DISTRESS [facility] (1 source) Amoxicillin Drug Allergy 05-27-20 [facility] (1 source) Clavulanate Drug Allergy 05-27-20 [facility] (1 source) Codeine Drug Allergy 05-27-20 [facility] (1 source) Nitrofurantoin Drug Allergy 05-27-20 [facility] (1 source) Sulfonamides (Antibiotic) Drug allergy (disorder) 05-27-20 [facility] Repository Medications Current Medications Medication Drug Class(es) [...] 1 tablet by mouth once daily 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 30 tablet 0 12/14/2018 Active Tiotropium [place] (Spiriva With Handihaler) 1 PUFF inhaler (2 sources) Start: 07-29-2013 take 1 puff(s) by inhalation once daily Tiotropium [place] (Spiriva With Handihaler) 1 PUFF inhaler Active [...] Start: 10-26-2011 take 1 puff(s) by mo [facility] twice daily fluticasone-salmeterol (ADVAIR DISKUS) 100-50 mcg/dose [...] 2 g, Intraveno us, DAILY NEEDED, Starting [facility] 12/13/18 at 1925, Until Discontinued, for mag [...] 8:48am Start: 07-29-2013 take 1 tablet by [facility] once daily Multivitamin With Folic Acid (Thera) 1 TABLET tablet Active 1 {tbl} PO DAILY July 29, 2013 12:00am nystatin [id number] unt/ml oral suspension (4 sources) Polyene Antifungal Start: 11-15-2017 End: 12-17-2018 nystatin [id number] UNIT/ML oral suspension omeprazole 40 mg delayed release oral capsule (20 sources) Proton Pump Inhibitor Start: 07-29-2013 End: 08-08-2024 take 1 capsule by mouth once daily Omeprazole 40 mg capsule,delayed release(DR/EC) Discontinued 40 mg PO DAILY July 28, 2024 12:00am August 08, 2024 10:14am Start: 10-26-2011 take 1 capsule by mo [facility] once daily omeprazole (PRILOSEC) 20 mg ORAL capsule Take 1 capsule by mouth once daily. 0 10/26/2011 Active pantoprazole 40 mg delayed release oral tablet (1 source) Proton Pump Inhibitor Start: 12-13-2018 take 40 mg by mouth once daily 40 mg, Oral, DAILY, First dose on [facility] 12/13/18 at 2000, Until Discontinued, Indications: GERD [...] puff(s) by in halation once daily Tiotropium [place] (Spiriva With Handihaler) 1 PUFF inhaler Active [...] mg, Oral, DAILY AT BEDTIME NEEDED, Starting [facility] 12/13/18 at 1922, Until Discontinued, Sleep Start: [...] fracture] 08-08-2024 Chronic Other aftercare (1 source) retirement (current) use of anticoagulants; Translations: [SNF CURRNT USE ANTICOAGULANTS] Onset: 09-29-2023 Episodic Other [...] sources) Long-term current use of anticoagulant; 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 Normal [facility] CBC (INCLUDES DIFF/PLT)on Basophils (Bld) [#/Vol] 0.024 10*3/uL Normal 0-200 [facility] Comment on above: Performed By: #### 1 023, 63, 7600 #### [facility] of [place] [address] Tile Grinder: Braulio Roach MD Basophils/100 WBC (Bld) 0.2 % Normal [facility] Comment on above: Performed By: #### 1 023, 63, 7600 #### [facility] [place] [address] Tile Grinder: Braulio Roach MD Eosinophils (Bld) [#/Vol] 0.012 10*3/uL Low 15-500 [facility] Comment on above: Performed By: #### 1 023, 63, 0 #### [facility] [place] [address] Tile Grinder: Braulio Roach MD Eosinophils/100 WBC (Bld) 0.1 % Normal [facility] Comment on above: Performed By: #### 1 230, 63, 7600 #### [facility] [place] [address] Tile Grinder: Braulio Roach MD Erythrocyte distribution width (RBC) [Ratio] 20.5 % High 11.0-15.0 [facility] Comment on above: Performed By: #### 1 023, 63, 7600 #### [facility] [place] [address] Tile Grinder: Braulio Roach MD Hematocrit (Bld) [Volume fraction] 34.7 % Low 35.0-45.0 [facility] Comment on above: Performed By: #### 1 023, 63, 7600 #### [facility] of [address], [address] [place] [address] Tile Grinder: Braulio Roach MD Hemoglobin (Bld) [Mass/Vol] 9.2 g/dL Low 11.7-15.5 [facility] Comment on above: Performed By: #### 1 0231, 6399, 7600 #### [facility] of [address], [address] [place] [address] Tile Grinder: Braulio Roach MD Lymphocytes (Bld) [#/Vol] 0.984 10*3/uL Normal 850-3900 [facility] Comment on above: Performed By: #### 1 0231, 63, 7600 #### [facility] [place] [address] Tile Grinder: Braulio Roach MD Lymphocytes/100 WBC (Bld) 8.2 % Normal [facility] Comment on above: Performed By: #### 1 023, 63, 7600 #### [facility] of [address], [address] [place] [address] Tile Grinder: Braulio Roach MD MCH (RBC) [Entitic mass] 19.5 pg Low 27.0-33.0 [facility] Comment on above: Performed By: #### 1 023, 6399, 7600 #### [facility] of [address], [address] [place] [address] Tile Grinder: Braulio Roach MD MCHC (RBC) [Mass/Vol] 26.5 g/dL Low 32.0-36.[address] [facility] Comment on above: Result Comment: For adults, a slight decrease in the calculated MCHC value (in the range of 30 to 32 g/dL) is most likely not clinically significant; however, it should be interpreted with caution in correlation with other red cell parameters and the patient's clinical condition. Performed By: #### 1 0231, 6399, 7600 #### [facility] of [place] [address] Tile Grinder: Braulio Roach MD MCV (RBC) [Entitic vol] 73.4 fL Low 80.0-100.0 [facility] Comment on above: Performed By: #### 1 0231, 63, 7600 #### [facility] [place] [address] Tile Grinder: Braulio Roach MD Monocytes (Bld) [#/Vol] 0.432 10*3/uL Normal 200-950 [facility] Comment on above: Performed By: #### 1 0231, 63, 7600 #### [facility] [place] [address] Tile Grinder: Braulio Roach MD Monocytes/100 WBC (Bld) 3.6 % Normal [facility] Comment on above: Performed By: #### 1 0231, 63, 7600 #### [facility] [place] [address] Tile Grinder: Braulio Roach MD Neutrophils (Bld) [#/Vol] 10.548 10*3/uL High 1503-7956 [facility] Comment on above: Performed By: #### 1 0231, 63, 7600 #### [facility] [place] [address] Tile Grinder: Braulio Roach MD Neutrophils/100 WBC (Bld) 87.9 % Normal [facility] Comment on above: Performed By: #### 1 0231, 63, 7600 #### [facility] [place] [address] Tile Grinder: Braulio Roach MD Platelet mean volume (Bld) [Entitic vol] 9.0 fL Normal 7.5-12.5 [facility] Comment on above: Performed By: #### 1 0231, 63, 7600 #### [facility] [place] [address] Tile Grinder: Braulio Roach MD Platelets (Bld) [#/Vol] 460 10*3/uL High 140-400 [facility] Comment on above: Performed By: #### 1 0231, 63, 7600 #### [facility] [place] [address] Tile Grinder: Braulio Roach MD RBC (Bld) [#/Vol] 4.73 10*6/uL Normal 3.80-5.10 [facility] Comment on above: Performed By: #### 1 0231, 6399, 7600 #### [facility] [place] [address] Tile Grinder: Braulio Roach MD WBC (Bld) [#/Vol] 12.0 10*3/uL High 3.8-10.8 [facility] Comment on above: Performed By: #### 1 0231, 6399, 7600 #### [facility] [place] [address] Tile Grinder: Braulio Roach MD [facility] METABOLIC [facility] 05-14-2025 Albumin [Mass/Vol] 3.9 g/dL Normal 3.6-5.1 [facility] Comment on above: Performed By: #### 1 023, 63, 7600 #### [facility] [place] [address] Tile Grinder: Braulio Roach MD Albumin/Globulin [Mass ratio] 1.0 {ratio} Normal 1.0-2.5 [facility] Comment on above: Performed By: #### 1 0231, 63, 7600 #### [facility] [place] [address] Tile Grinder: Braulio Roach MD ALP [Catalytic activity/Vol] 57 U/L Normal 37-153 [facility] Comment on above: Performed By: #### 1 0231, 6399, 7600 #### [facility] [place] [address] Tile Grinder: Braulio Roach MD ALT [Catalytic activity/Vol] 7 U/L Normal 6-29 [facility] Comment on above: Performed By: #### 1 023, 6399, 7600 #### [facility] of [address], [address] [place] [address] Tile Grinder: Braulio Roach MD AST [Catalytic activity/Vol] 8 U/L Low 10-35 [facility] Comment on above: Performed By: #### 1 0231, 6399, 7600 #### [facility] of [address], [address] [place] [address] Tile Grinder: Braulio Roach MD Bilirubin [Mass/Vol] 0.2 mg/dL Normal 0.2-1.2 [facility] Comment on above: Performed By: #### 1 0231, 6399, 7600 #### [facility] [place] [address] Tile Grinder: Braulio Roach MD BUN/CREATININE RATIO SEE NOTE: Normal 6-22 [facility] Comment on above: Result Comment: Not Reported: BUN and Creatinine are within reference range. Performed By: #### 1 0231, 63, 7600 #### [facility] of [address], [address] [place] [address] Tile Grinder: Braulio Roach MD Calcium [Mass/Vol] 8.7 mg/dL Normal 8.6-10.4 [facility] Comment on above: Performed By: #### 1 0231, 6399, 7600 #### [facility] [place] [address] Tile Grinder: Braulio Roach MD Chloride [Moles/Vol] 101 mmol/L Normal 98-110 [facility] Comment on above: Performed By: #### 1 0231, 6399, 7600 #### [facility] [place] [address] Tile Grinder: Braulio Roach MD CO2 [Moles/Vol] 26 mmol/L Normal 20-32 [facility] Comment on above: Performed By: #### 1 0231, 6399, 7600 #### [facility] of [address] [place] [address] Tile Grinder: Braulio Roach MD Creatinine [Mass/Vol] 0.80 mg/dL Normal 0.60-1.[address] [facility] Comment on above: Performed By: #### 1 023, 63, 7600 #### [facility] [address], [address] [place] [address] Tile Grinder: Braulio Roach MD GFR/1.73 sq M.predicted among non-blacks MDRD (S/P/Bld) [Vol rate/Area] 79 mL/min/{1.73_m2} Normal > OR = 60 [facility] Comment on above: Performed By: #### 1 230, 63, 7600 #### [facility] [place] [address] Tile Grinder: Braulio Roach MD Globulin (S) [Mass/Vol] 3.8 g/dL High 1.9-3.7 [facility] Comment on above: Performed By: #### 1 230, 63, 7600 #### [facility] [address], [address] [place] [address] Tile Grinder: Braulio Roach MD Glucose [Mass/Vol] 166 mg/dL High 65-99 [facility] Comment on above: Result Comment: Fasting reference interval For someone without known diabetes, a glucose value >125 mg/dL indicates that they may have diabetes and this should be confirmed with a follow-up test. Performed By: #### 1 230, 63, 7600 #### [facility] [address], [address] [place] [address] Tile Grinder: Braulio Roach MD Potassium [Moles/Vol] 4.5 mmol/L Normal 3.5-5.[address] [facility] Comment on above: Performed By: #### 1 023, 6313, 7600 #### [facility] [address], [address] [place] [address] Tile Grinder: Braulio Roach MD Protein [Mass/Vol] 7.7 g/dL Normal 6.1-8.1 [facility] Comment on above: Performed By: #### 1 0231, 6399, 7600 #### [facility] [place] [address] Tile Grinder: Braulio Roach MD Sodium [Moles/Vol] 137 mmol/L Normal 135-146 [facility] Comment on above: Performed By: #### 1 0231, 6399, 7600 #### [facility] [place] [address] Tile Grinder: Braulio Roach MD Urea nitrogen [Mass/Vol] 12 mg/dL Normal 7-25 [facility] Comment on above: Performed By: #### 1 0231, 6399, 7600 #### [facility] of [place] [address] Tile Grinder: Braulio Roach MD LIPID PANEL, [address] Cholesterol [Mass/Vol] 198 mg/dL Normal <200 [facility] Comment on above: Performed By: #### 1 0231, 6399, 7600 #### [facility] [place] [address] Tile Grinder: Braulio Roach MD Cholesterol in HDL [Mass/Vol] 59 mg/dL Normal > OR = 50 [facility] Comment on above: Performed By: #### 1 0231, 6399, 7600 #### [facility] [place] [address] Tile Grinder: Braulio Roach MD Cholesterol in LDL [Mass/Vol] [...] LDL-C. Mitchell SS et al. KING. 2013;310(19): 7163-3238 (http://education.[facility].AOTMP/faq/FTY243) Performed By: #### 1 230, 80, 2590 #### [facility] [address], [address] [place] [address] Tile Grinder: Braulio Roach MD Cholesterol.total/Chol esterol in HDL [Mass ratio] 3.4 {ratio} Normal <5.0 [facility] Comment on above: Performed By: #### 1 230, 65, 5780 #### [facility] [address], [address] [place] [address] Tile Grinder: Braulio Roach MD NON HDL CHOLESTEROL 139 mg/dL (calc) High <130 [facility] Comment on above: Result Comment: For patients with diabetes plus 1 major ASCVD risk factor, treating to a non-HDL-C goal of <100 mg/dL (LDL-C of <70 mg/dL) is considered a therapeutic option. Performed By: #### 1 230, 20, 1810 #### [facility] [address], [address] [place] [address] Tile Grinder: Braulio Roach MD Triglyceride [Mass/Vol] 212 mg/dL High <150 [facility] Comment on above: Result Comment: If a non-fasting specimen was collected, consider repeat triglyceride testing on a fasting specimen if clinically indicated. Vivek et al. J. of Clin. Lipidol. 2015;9:129-169. Performed By: #### 1 230, 48, 2550 #### [facility] [address], [address] [place] [address] Tile Grinder: Braulio Roach MD TSHon 05-14-2025 TSH Qn 1.25 m[IU]/L Normal 0.40-4.50 [facility] Comment on above: Performed By: #### 1 230, 0235, 2580 #### [facility] [address], [address] [place] [address] Tile Grinder: Braulio Roach MD EGD Reporton 05-13-2025 EGD Report [facility] Medical Records Department [address] [place] [address] EGD Report MR#: [id number] Acct: [id number] Name: AMNA SEQUEIRA Rep #: [id number] : 1955 70 From: Noe Wright DO PCP: Dr. Galindo Gutierrez MD Status:[facility] Patient Name: Amna Sequeira Procedure Date: 05/13/2025 [...] pathology results. Procedure Code(s): --- Professional --- 81328, Small intestinal endoscopy, enteroscopy beyond second portion of duodenum, not including ileum; with biopsy, single or multiple CPT copyright 2021 [employer]. All rights reserved. The codes documented in this report are preliminary and upon mixing tank operator review may be revised to meet current compliance requirements. Noe Wright DO 05/13/2025 12:58:49 PM This report has been signed electronically. Number of Addenda: 0 Note Initiated On: 05/13/2025 12:37 PM 05/13/25 1258 Date Noe Forbes Signature: Date (if indicated) CC: Dr. Galindo Morfin (more content not included)... [facility] normalized rat io (INR) calculationOrdered By: Noe Wright on 05-13-2025 INR Coag (Bld) [Relative time] 1.7 {INR} [facility] MR/POSTOP.ANEon 05-13-2025 MR/POSTOP.ANE [facility] Medical Records Department [address] [place] [address] Anesthesia Postop Eval I 05/13/25 1300 MR#: [id number] Acct: [id number] Name: AMNA SEQUEIRA Rep #: [id number] : 1955 70 From: Homero Alvarado PCP: Dr. Galindo Gutierrez MD Status:REG SDC Y Race: C Location: [place] [address] Anesthesia: Postop Eval I Current Vital Signs [...] Date Homero Pittmanigniwona Signature: Date CC: Signed [facility] MR/[id number] 05-13-2025 MR/POSTOPAN2 [facility] Medical Records Department [address] [place] [address] Anesthesia Postop Eval II 05/13/25 1913 MR#: [id number] Acct: [id number] Name: AMNA SEQUEIRA Rep #: [id number] : 1955 70 From: Doe Constantino MD PCP: Dr. Galindo Gutierrez MD Status:DEP [facility] Y Race: C Location: EN Anesthesia Postop [...] MD Cosigner Signature: Date CC: Signed Normal [facility] Prothrombin Time w/INRon INR Coag (PPP) [Relative time] 1.7 {INR} Normal [facility] Comment on above: Performed By: #### L 586.2557 #### [facility] [address] [place], [place], [id number] PT Coag (PPP) [Time] 20.2 s High 11.7-14.9 [facility] Comment on above: Performed By: #### L 300.3900 #### [facility] [address] [place], [place], [id number] Prothrombin timeOrdered By: Noe Wright on 05-13-2025 PT Coag (PPP) [Time] 20.2 s High 11.7-14.9 [facility] Protime w/INR Fingerstickon 05-13-2025 INR Coag (PPP) [Relative time] 1.9 {INR} Normal [facility] Comment on above: Result Comment: Crit ical Value > 4.0 Performed By: #### L 9200.0000 ####[facility] [address] [place], [address] Protime Coagsen 21.0 SEC High 11.7-14.9 [facility] Comment on above: Performed By: #### L 9200.0000 ####[facility] [address] [place], [address] Surgery Specimen Level Hilda 05-13-2025 Surgery Specimen Level IV Patient Age/Sex Location Account Attending Physician AMNA SEQUEIRA 70/F EN [id number] Noe Wright DO Specimen: [id number] Received: 05/13/25 Status: JENNIFER Copeland Num: [id number] Spec Type: EGD BIOPSY Subm Dr: Noe [...] totally submitted in one cassette. [place] 05/13/2025 CPT:85205h1 Patient Age/Sex Location Account Attending Physician AMNA SEQUEIRA 70/F EN [id number] Noe Wright, DO Signed (signature on file) Dr. Namrata Davila DO 05/20/25926 Normal [facility] Comment on above: Performed By: #### P BERNARD ####[facility] [address] [place], [place], [id number] Whole blood prothrombin time Ordered By: Noe Wright on 05-13-2025 PT Coag (Bld) [Time] 21.0 s High 11.7-14.9 [facility] MR/PAT.SHELIAon 05-12-2025 MR/PAT.SHELIA [facility] Medical Records Department [address] [place] [address] PAT - Anesthesia 05/12/25 1325 MR#: [id number] Acct: [id number] Name: AMNA SEQUEIRA Rep #: [id number] : 1955 70 From: Tone Rashid MD PCP: Dr. 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 Female Yes 05/12/25 08:53 HX of Motion [...] 07/28/24 15:55 Respiratory Assessment Respiratory Assessment - international flight attendant: Respiratory Tract Infection Hx - international flight attendant Hx Respiratory Tract Infection No 05/12/25 08:53 STOP Sleep Apnea STOP Sleep Apnea - international flight attendant: STOP Sleep Apnea - international flight attendant Hx Hypertension No 05/12/25 08:53 Hx Sleep [...] Tobacco Use History Tobacco Use History - international flight attendant: Tobacco Use History - international flight attendant Tobacco Use Smoking Status Current every day smoker 05/12/25 08:53 Hx Tobacco Use No 05/12/25 08:53 Years Smoking Packs Smoked per Day Smoking Cessation Date was within the last 15 years Hx Smoking Cessation Date Hx Smoking Cessation Counseling Hematologic Medial History Hematologic Hx - international 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 Specify any problems Hx of Preganancy in last 3 No 05/12/25 08:53 Months Nurse Filling Out Transfusion [facility] 05/12/25 08:53 Questions: Date: 05/12/25 05/12/25 08:53 Time: 09:06 05/12/25 08:53 Patient unable to answer at this time (ie. confused, unrespo /Reproduction History /Reproductive History - international flight attendant: /Reproductive Hx- international flight attendant Hx Now No 05/12/25 08:53 Gestational Age [...] inhalation DAILY (more content not included)... Normal [facility] Echocardiogram study reportO rdered By: Freedom Collier on 04-06-2025 Study report [facility] [address] [place] [address] Echo Complete W/ Contrast 04/04/25 0859 MR#: [id number] Acct: [id number] Name: AMNA SEQUEIRA Rep #:[id number] : 1955 69 From: Freedom rios MD [...] Date Dictated: 04/04/25858 Date Transcribed: 04/06/25 1648 [employer] Programs Director: Signed [facility] Work Phone: Echo Complete W/ Contraston 04-04-2025 Echo Complete W/ Contrast [facility] [place] [address] [place] [address] Echo Complete W/ Contrast 04/04/2559 MR#: [id number] Acct: [id number] Name: AMNA SEQUEIRA Rep #: [id number] : 1955 69 From: Freedom Collier MD Attending Dr: Dr. Galindo Gutierrez MD Status: REG Anali AVILA Ordering Dr: Galindo Gutierrez MD Date: 04/04/25 Location: [facility] Sex: F C Admitted: Reason For Study [...] MD Date Dictated: 04/04/2559 Date Transcribed: 04/06/251647 [employer] Programs Director: Signed Normal [facility] Gastric Emptying Studyon Gastric Emptying Study [facility] Imaging Services [address] [place] [address] [id number] Gastric Emptying Study MR#: [id number] Acct: [id number] Name: AMNA SEQUEIRA Rep #: [id number] : 1955 F 69 From: Del ferraro MD PCP: Dr. Galindo Gutierrez MD Status: REG CLI Study: Gastric Emptying Study Date of Exam: 03/20/25 Exam# [id number] Ordering Dr: Allyson Barkley PROCEDURE: GASTRIC EMPTYING [...] geometric mean was used to calculate a swvc-yozprpum-pxvwv. RADIOPHARMACEUTICAL: Sulfur colloid DOSE 1.2mCi FINDINGS: Percent activity remaining in stomach: 1 hour 62% % (normal 37-90%) NM/Gastric Emptying Study IMPRESSION: Normal gastric emptying examination. Reading Location: [place] [address] CC: MAGI Barkley; Dr. Galindo Gutierrez MD [employer] Programs Director: Signed Normal [facility] Gastroenterology Visit Repor ton 03-18-2025 Gastroenterology Visit Report [facility] Gastroenterology [address] [place] [address] OFFICE VISIT Date of Service: 03/18/25 MR#: [id number] Acct: [id number] Name: AMNA SEQUEIRA Rep #: [id number] : 1955 Provider: MAGI henning Age/Sex: 69/F [place] [facility] Status: Signed Intake Vital Signs 07/28/24 15:55 [...] office today for FU after establishment with [facility] for recurrent nausea and abdominal pain before [...] does n (more content not included)... Normal [facility] 3D MAMM BILAT SCREENon 03-17 3D MAMM BILAT SCREEN [place] [address] Patient: AMNA SEQUEIRA Phone#: : 1955 Age: 69 Gender: F Pt. Type: Out Account: [id number] Location: [facility] Ordering: GALINDO GUTIERREZ Exam Date: 03/17/2025/8:13 Family Phys: Charge Code: [id number] Physician: Merrick Order #: [id number] Dose#: PROCEDURE: BILATERAL SCREENING BREAST TOMOSYNTHESIS MAMMOGRAM WITH CAD COMPARISON: [facility], BILAT SCREENING, 11/16/2018, 12:55. [facility], BILAT SCREENING, 11/26/2019, 15:08. INDICATIONS: Screening. BREAST [...] Marc MD on 03/17/2025 at 9:55 Normal [facility] Gastrin, Serumon 03-06-2025 GASTRIN 170 pg/mL High 0-115 [facility] Comment on above: Result Comment: [facility] Immulite 2000 Immunochemiluminometric assay (ICMA) Values obtained with different assay methods or kits cannot be used interchangeably. Results cannot be interpreted as absolute evidence of the presence or absence of malignant disease. Performed at: [facility] [id number] Property Adjuster: Hoda Crockett MD, Phone: [phone] Performed By: #### L 501.2450, L3300.1800, L501.2400 #### [facility] [address] [place], [address] Amylaseon 03-04-2025 BETITO 41 U/L Normal 28-100 [facility] Comment on above: Performed By: #### L 501.2450, L3300.1800, L501.2400 #### [facility] [address] [place], [address] Gastrin, serumOrdered By: Hakan Barkley on 03-04-2025 Gastrin [Mass/Vol] 170 pg/mL High 0-115 [facility] Comment on above: Siemens Immulite 200 0 Immunochemiluminometric assay (ICMA)Values obtained with different assay methods or kits cannotbe used interchangeably. Results cannot be interpreted asabsolute evidence of the presence or absence of malignantdisease.Performed at: [address] [id number] Director: Hoda Crockett MD, Phone: [phone] Gastroenterology Visit Repor ton 03-04-2025 Gastroenterology Visit Report [facility] Gastroenterology [address] [place] [address] OFFICE VISIT Date of Service: 03/04/25 MR#: [id number] Acct: [id number] Name: AMNA SEQUEIRA Rep #: [id number] : 1955 Provider: CARE PARTNER-C Allyson Ev ans Age/Sex: 69/F Location[place] [facility] Status: Signed Intake Vital Signs 07/28/24 15:55 [...] to the office today for establishment with [facility] for recurrent nausea and abdominal pain before eating. 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 She was treated with antibiotics and sent home without surgeries. mAna reports having to take 3 Dramamine to even think about food or she will get severely nauseous. She also reports early satiety and increased abdominal bloating with associated increase in belching and mild flatulence. She states that sucralfate suspension helps some but ondansetron does n (more content not included)... Normal [facility] Lipaseon 03-04-2025 Lipase [Catalytic activity/Vol] 35 U/L Normal 13-75 [facility] Comment on above: Result Comment: Britni centeno note: LIPASE revised reference range effective 23. New Lipase methodology. Expected to produce lower values than the previous assay method. NEW Reference Range: 13 - 75 U/L Performed By: #### L 501.2450, L3300.1800, L501.2400 #### [facility] [address] [place], [address] Lipase measurementOrdered By : Allyson Barkley on 03-04-2025 Lipase [Catalytic activity/Vol] 35 U/L 13-75 [facility] Comment on above: Please note:LIPASE r evised reference range effective 23. New Lipase methodology. Expected to produce lower values than the previous assay method. NEW Reference Range: 13 - 75 U/L Serum or plasma amylase killian urement (enzymatic activity/volume)Ordered By: Allyson Barkley on 03-04-2025 Amylase [Catalytic activity/Vol] 41 U/L 28-100 [facility] CBC (INCLUDES DIFF/PLT)on Basophils (Bld) [#/Vol] 0.054 10*3/uL Normal 0-200 [facility] Comment on above: Performed By: #### 1 9871, 6399 #### [facility] of [place] [address] Tile Grinder: Braulio Roach MD Basophils/100 WBC (Bld) 0.4 % Normal [facility] Comment on above: Performed By: #### 1 0231, 6399 #### [facility] of [address], [address] [place] [address] Tile Grinder: Braulio Roach MD Eosinophils (Bld) [#/Vol] 0.081 10*3/uL Normal 15-500 [facility] Comment on above: Performed By: #### 1 0231, 6399 #### [facility] of [place] [address] Tile Grinder: Braulio Roach MD Eosinophils/100 WBC (Bld) 0.6 % Normal [facility] Comment on above: Performed By: #### 1 023, 6399 #### [facility] of [place] [address] Tile Grinder: Braulio Roach MD Erythrocyte distribution width (RBC) [Ratio] 18.8 % High 11.0-15.0 [facility] Comment on above: Performed By: #### 1 0231, 6399 #### [facility] of [place] [address] Tile Grinder: Braulio Roach MD Hematocrit (Bld) [Volume fraction] 33.7 % Low 35.0-45.0 [facility] Comment on above: Performed By: #### 1 0231, 6399 #### [facility] of [place] [address] Tile Grinder: Braulio Roach MD Hemoglobin (Bld) [Mass/Vol] 9.2 g/dL Low 11.7-15.5 [facility] Comment on above: Performed By: #### 1 0231, 6399 #### [facility] of [place] [address] Tile Grinder: Braulio Roach MD Lymphocytes (Bld) [#/Vol] 0.878 10*3/uL Normal 850-3900 [facility] Comment on above: Performed By: #### 1 0231, 6399 #### [facility] of [place] [address] Tile Grinder: Braulio Roach MD Lymphocytes/100 WBC (Bld) 6.5 % Normal [facility] Comment on above: Performed By: #### 1 0231, 6399 #### [facility] of [place] [address] Tile Grinder: Braulio Roach MD MCH (RBC) [Entitic mass] 20.7 pg Low 27.0-33.0 [facility] Comment on above: Performed By: #### 1 0231, 6399 #### [facility] of [place] [address] Tile Grinder: Braulio Roach MD MCHC (RBC) [Mass/Vol] 27.3 [...] 1 023, 6399 #### [facility] of [place] [address] Tile Grinder: Braulio Roach MD MCV (RBC) [Entitic vol] 75.7 fL Low 80.0-100.0 [facility] Comment on above: Performed By: #### 1 0231, 6399 #### [facility] of [place] [address] Tile Grinder: Braulio Roach MD Monocytes (Bld) [#/Vol] 0.594 10*3/uL Normal 200-950 [facility] Comment on above: Performed By: #### 1 0231, 6399 #### [facility] of [place] [id number] Tile Grinder: Braulio Roach MD Monocytes/100 WBC (Bld) 4.4 % Normal [facility] Comment on above: Performed By: #### 1 0231, 6399 #### [facility] of [place] [address] Tile Grinder: Braulio Roach MD Neutrophils (Bld) [#/Vol] 11.894 10*3/uL High 8407-4553 [facility] Comment on above: Performed By: #### 1 0231, 6399 #### [facility] of [place] [address] Tile Grinder: Braulio Roach MD Neutrophils/100 WBC (Bld) 88.1 % Normal [facility] Comment on above: Performed By: #### 1 0231, 6399 #### [facility] [place] [address] Tile Grinder: Braulio Roach MD Platelet mean volume (Bld) [Entitic vol] 9.6 fL Normal 7.5-12.5 [facility] Comment on above: Performed By: #### 1 0231, 6399 #### [facility] [place] [address] Tile Grinder: Braulio Roach MD Platelets (Bld) [#/Vol] 488 10*3/uL High 140-400 [facility] Comment on above: Performed By: #### 1 0231, 6399 #### [facility] [place] [address] Tile Grinder: Braulio Roach MD RBC (Bld) [#/Vol] 4.45 10*6/uL Normal 3.80-5.10 [facility] Comment on above: Performed By: #### 1 0231, 6399 #### [facility] of [place] [address] Tile Grinder: Braulio Roach MD WBC (Bld) [#/Vol] 13.5 10*3/uL High 3.8-10.8 [facility] Comment on above: Performed By: #### 1 0231, 6399 #### [facility] of [place] [address] Tile Grinder: Braulio Roach MD [facility] 03-02-2025 Albumin [Mass/Vol] 3.9 g/dL Normal 3.6-5.1 [facility] Comment on above: Performed By: #### 1 0231, 6399 #### [facility] of [address], [address] [place] [address] Tile Grinder: Braulio Roach MD Albumin/Globulin [Mass ratio] 1.0 {ratio} Normal 1.0-2.5 [facility] Comment on above: Performed By: #### 1 0231, 6399 #### [facility] of [place] [address] Tile Grinder: Braulio Roach MD ALP [Catalytic activity/Vol] 58 U/L Normal 37-153 [facility] Comment on above: Performed By: #### 1 0231, 6399 #### [facility] of [place] [address] Tile Grinder: Braulio Roach MD ALT [Catalytic activity/Vol] 6 U/L Normal 6-29 [facility] Comment on above: Performed By: #### 1 0231, 6399 #### [facility] of [place] [address] Tile Grinder: Braulio Roach MD AST [Catalytic activity/Vol] 12 U/L Normal 10-35 [facility] Comment on above: Performed By: #### 1 0231, 6399 #### [facility] of [place] [address] Tile Grinder: Braulio Roach MD Bilirubin [Mass/Vol] 0.2 mg/dL Normal 0.2-1.2 [facility] Comment on above: Performed By: #### 1 0231, 6399 #### [facility] of [address] [place] [address] Tile Grinder: Braulio Roach MD BUN/CREATININE RATIO SEE NOTE: Normal 6-22 [facility] Comment on above: Result Comment: Not Reported: BUN and Creatinine are within reference range. Performed By: #### 1 0231, 6399 #### [facility] [address], [address] [place] [address] Tile Grinder: Braulio Roach MD Calcium [Mass/Vol] 8.7 mg/dL Normal 8.6-10.4 [facility] Comment on above: Performed By: #### 1 0231, 6399 #### [facility] [address], [address] [place] [address] Tile Grinder: Braulio Roach MD Chloride [Moles/Vol] 106 mmol/L Normal 98-110 [facility] Comment on above: Performed By: #### 1 0231, 6399 #### [facility] [address], [address] [place] [address] Tile Grinder: Braulio Roach MD CO2 [Moles/Vol] 23 mmol/L Normal 20-32 [facility] Comment on above: Performed By: #### 1 0231, 6399 #### [facility] [place] [address] Tile Grinder: Braulio Roach MD Creatinine [Mass/Vol] 0.76 mg/dL Normal 0.50-1.[address] [facility] Comment on above: Performed By: #### 1 0231, 6399 #### [facility] [place] [address] Tile Grinder: Braulio Roach MD GFR/1.73 sq M.predicted among non-blacks MDRD (S/P/Bld) [Vol rate/Area] 85 mL/min/{1.73_m2} Normal > OR = 60 [facility] Comment on above: Performed By: #### 1 0231, 6399 #### [facility] [address], [address] [place] [address] Tile Grinder: Braulio Roach MD Globulin (S) [Mass/Vol] 3.8 g/dL High 1.9-3.7 [facility] Comment on above: Performed By: #### 1 0231, 6399 #### [facility] of [place] [address] Tile Grinder: Braulio Roach MD Glucose [Mass/Vol] 113 mg/dL High 65-99 [facility] Comment on above: Result Comment: Fasting reference interval For someone without known diabetes, a glucose value between 100 and 125 mg/dL is consistent with prediabetes and should be confirmed with a follow-up test. Performed By: #### 1 0231, 6399 #### [facility] [place] [address] Tile Grinder: Braulio Roach MD Potassium [Moles/Vol] 5.0 mmol/L Normal 3.5-5.[address] [facility] Comment on above: Performed By: #### 1 0231, 6399 #### [facility] of [place] [address] Tile Grinder: Braulio Roach MD Protein [Mass/Vol] 7.7 g/dL Normal 6.1-8.1 [facility] Comment on above: Performed By: #### 1 0231, 6399 #### [facility] [place] [address] Tile Grinder: Braulio Roach MD Sodium [Moles/Vol] 138 mmol/L Normal 135-146 [facility] Comment on above: Performed By: #### 1 0231, 6399 #### [facility] of [place] [address] Tile Grinder: Braulio Roach MD Urea nitrogen [Mass/Vol] 12 mg/dL Normal 7-25 [facility] Comment on above: Performed By: #### 1 0231, 6399 #### [facility] [place] [address] Tile Grinder: Braulio Roach MD TSHon 03-02-2025 TSH Qn 1.79 m[IU]/L Normal 0.40-4.50 [facility] Comment on above: Performed By: #### 1 0231, 6399 #### [facility] [address] [facility], [address] [place] [address] Tile Grinder: Braulio Roach MD CREATININE BLDon 11-04-2024 Creatinine [Mass/Vol] 0.69 mg/dL Normal 0.58-0.96 [facility] Comment on above: Order Comment: Speci men Type: BLOOD SPECIMEN Ordering Facility: [facility] Address: [address] [place] [address] Performed By: #### C RET1 #### [facility] [id number] [address] [place] [address] [place] Creatinine and Glomerular filtration rate.predicted panel (S/P/Bld) 94 mL/min/1.73m??? Normal >=60 [facility] Comment on above: Order Comment: Speci men Type: BLOOD SPECIMEN Ordering Facility: [facility] Address: [address] [place] [address] Result Comment: Gisela mated Glomerular Filtration Rate [...] GFR. Performed By: #### C RET1 #### [facility] CLIA [id number] [address] [place] [address] [place] LIVER W IVCONon CT LIVER W IVCON * * *Final Report* * * DATE OF EXAM: Nov 04 2024 3:22PM [facility] 0548 - CT LIVER W IVCON / [...] steatosis Stable thoracolumbar compression deformities. Renal cysts Groundwater Programs Director: [facility] Transcribe Date/Time: Nov 07 2024 2:19P Dictated by : LIBRA ROSARIO MD This examination was interpreted and the report reviewed and electronically signed by: LIBRA ROSARIO MD on Nov 07 2024 2:33PM EST [id number] Normal [facility] CNCOon 08-20-2024 CNCO Letter Text Normal [facility] CNOVon 08-20-2024 CNOV Office Visit (AGGENS 3) ----- AMNA SEQUEIRA ([id number]) 1955 F Date Time Provider Department 08/20/24 [...] infectious origin [R19.7] Order(s):MRI LIVER WO/W IVCON [1121126] Order #: [id number] FUTURE iv contrast (will be provided with [...] 1 EachRfl: 0 CT LIVER W IVCON [5465951] Order #: [id number] FUTURE iv contrast (will be provided with [...] 0 C. DIFFICILE PCR [SQCDPCR] Order #: [id number]. #:[id number] Prescriptions as of 08/20/2024 - iv contrast [...] (more content not included)... Normal [facility] CT PANCREAS W IVCONon 2023 CT PANCREAS W IVCON * * *Final Report* * * DATE OF EXAM: Aug 13 2024 3:40PM [facility] 0552 - CT PANCREAS W IVCON / [...] multiple vertebral bodies, unchanged. Lower thorax: Unremarkable. Molder Meat (topogram) images: No additional findings. IMPRESSION: 1. Almost complete resolution of previously seen fluid collections adjacent and within the pancreas, with small residual foci of air. 2. No definite suspicious focal pancreatic lesions. No pancreatic ductal dilation. 3. Unchanged hypodense hepatic lesion, which may represent focal fat however is strictly indeterminate. Ground[employer] Programs Director: [facility] Transcribe Date/Time: Aug 20 2024 9:03A Dictated by : KATRIN GUZMAN MD This examination was interpreted and the report reviewed and electronically signed by: KATRIN GUZMAN MD on Aug 20 2024 9:18AM EST [id number] Normal [facility] Basic metabolic 2000 panelon 08-01-2024 Anion gap [Moles/Vol] 11 mmol/L Normal 8-15 [facility] Comment on above: Order Comment: Monika [facility] Type: BLOOD SPECIMEN Ordering Facility: [facility] Address: [address] [place] [address] Performed By: #### 3 040-3 #### [facility] CLIA [id number] [address] [place] [address] [place] Calcium [Mass/Vol] 8.3 mg/dL Low 8.5-10.2 [facility] Comment on above: Order Comment: Monika [facility] Type: BLOOD SPECIMEN Ordering Facility: [facility] Address: [address] [place] [address] Performed By: #### 3 040-3 #### [facility] CLIA [id number] [address] [place] [address] [place] Chloride [Moles/Vol] 102 mmol/L Normal 98-107 [facility] Comment on above: Order Comment: Monika [facility] Type: BLOOD SPECIMEN Ordering Facility: [facility] Address: [address] [place] [address] Performed By: #### 3 040-3 #### [facility] CLIA [id number] [address] CO2 [Moles/Vol] 24 mmol/L Normal 22-30 [facility] Comment on above: Order Comment: Speci men Type: BLOOD SPECIMEN Ordering Facility: [facility] Address: [address] [place] [address] Performed By: #### 3 040-3 #### [facility] CLIA [id number] [address] Creatinine [Mass/Vol] 0.60 mg/dL Normal 0.58-0.96 [facility] Comment on above: Order Comment: Speci men Type: BLOOD SPECIMEN Ordering Facility: [facility] Address: [address] [place] [address] Performed By: #### 3 040-3 #### [facility] CLIA [id number] [address] Creatinine and Glomerular filtration rate.predicted panel (S/P/Bld) 97 mL/min/1.73m??? Normal >=60 [facility] Comment on above: Order Comment: Speci men Type: BLOOD SPECIMEN Ordering Facility: [facility] Address: [address] [place] [address] Result Comment: Gisela mated Glomerular Filtration Rate [...] GFR. Performed By: #### 3 040-3 #### [facility] CLIA [id number] [address] Glucose [Mass/Vol] 81 mg/dL Normal 74-99 [facility] Comment on above: Order Comment: Speci men Type: BLOOD SPECIMEN Ordering Facility: [facility] Address: [address] [place] [address] Result Comment: The Canadian Diabetes Association (ADA) provides guidance for cutoff [...] Standards of Medical Care in Diabetes 2016, Canadian Diabetes Association. Diabetes Care. 2016.39(Suppl 1). Performed By: #### 3 040-3 #### [facility] CLIA [id number] [address] Potassium [Moles/Vol] 3.4 mmol/L Low 3.7-5.1 [facility] Comment on above: Order Comment: Monika dye Type: BLOOD SPECIMEN Ordering Facility: [facility] Address: [address] [place] [address] Performed By: #### 3 040-3 #### [facility] CLIA [id number] [address] STATES [facility] Sodium [Moles/Vol] 137 mmol/L Normal 136-144 [facility] Comment on above: Order Comment: Monika dye Type: BLOOD SPECIMEN Ordering Facility: [facility] Address: [address] [place] [address] Performed By: #### 3 040-3 #### [facility] CLIA [id number] [address] STATES [facility] Urea nitrogen [Mass/Vol] 3 mg/dL Low 7-21 [facility] Comment on above: Order Comment: Monika dye Type: BLOOD SPECIMEN Ordering Facility: [facility] Address: [address] [place] [address] Performed By: #### 3 040-3 #### [facility] CLIA [id number] [address] OF [facility] CBC panel Auto (Bld)on 08-01 Erythrocyte distribution width (RBC) [Ratio] 21.2 % High 11.5-15.0 [facility] Comment on above: Order Comment: Speci men Type: BLOOD SPECIMEN Ordering Facility: [facility] Address: [address] [place] [address] Performed By: #### 3 040-3 #### [facility] CLIA [id number] [address] Hematocrit (Bld) [Volume fraction] 29.3 % Low 36.0-46.0 [facility] Comment on above: Order Comment: Speci men Type: BLOOD SPECIMEN Ordering Facility: [facility] Address: [address] [place] [address] Performed By: #### 3 040-3 #### [facility] CLIA [id number] [address] [address] Hemoglobin (Bld) [Mass/Vol] 8.6 g/dL Low 11.5-15.5 [facility] Comment on above: Order Comment: Speci men Type: BLOOD SPECIMEN Ordering Facility: [facility] Address: [address] [place] [address] Performed By: #### 3 040-3 #### [facility] CLIA [id number] [address] MCH (RBC) [Entitic mass] 23.0 pg Low 26.0-34.0 [facility] Comment on above: Order Comment: Speci men Type: BLOOD SPECIMEN Ordering Facility: [facility] Address: [address] [place] [address] Performed By: #### 3 040-3 #### [facility] CLIA [id number] [address] [place] MCHC (RBC) [Mass/Vol] 29.4 g/dL Low 30.5-36.0 [facility] Comment on above: Order Comment: Speci men Type: BLOOD SPECIMEN Ordering Facility: [facility] Address: [address] [place] [address] Performed By: #### 3 040-3 #### [facility] CLIA [id number] [address] MCV (RBC) [Entitic vol] 78.3 fL Low 80.0-100.0 [facility] Comment on above: Order Comment: Speci men Type: BLOOD SPECIMEN Ordering Facility: [facility] Address: [address] [place] [address] Performed By: #### 3 040-3 #### [facility] CLIA [id number] [address] [place] Nucleated RBC (Bld) [#/Vol] 10*3/uL Normal <0.01 [facility] Comment on above: Order Comment: Speci men Type: BLOOD SPECIMEN Ordering Facility: [facility] Address: [address] [place] [address] Performed By: #### 3 040-3 #### [facility] CLIA [id number] [address] [place] Platelet mean volume (Bld) [Entitic vol] 8.7 fL Low 9.0-12.7 [facility] Comment on above: Order Comment: Speci men Type: BLOOD SPECIMEN Ordering Facility: [facility] Address: [address] [place] [address] Performed By: #### 3 040-3 #### [facility] CLIA [id number] [address] Platelets (Bld) [#/Vol] 512 10*3/uL High 150-400 [facility] Comment on above: Order Comment: Speci men Type: BLOOD SPECIMEN Ordering Facility: [facility] Address: [address] [place] [address] Performed By: #### 3 040-3 #### [facility] CLIA [id number] [address] [place] RBC (Bld) [#/Vol] 3.74 10*6/uL Low 3.90-5.20 [facility] Comment on above: Order Comment: Speci men Type: BLOOD SPECIMEN Ordering Facility: [facility] Address: [address] [place] [address] Performed By: #### 3 040-3 #### [facility] CLIA [id number] [address] [place] WBC (Bld) [#/Vol] 9.02 10*3/uL Normal 3.70-11.00 [facility] Comment on above: Order Comment: Speci men Type: BLOOD SPECIMEN Ordering Facility: [facility] Address: [facility] [place] [address] Performed By: #### 3 040-3 #### [facility] CLIA [id number] 1 [place] [id number] [facility] CNDSon 08-01-2024 CNDS HNO ID: [id number] Author: AUBREE IRELAND MD Service: General Surgery [...] Problems: Obesity (BMI 30-39.9) Current use of [facility] antico[facility] Gastric ulcer, acute with perforation and [...] you become constipated, you may use any cpqy-nbj-tphdmec treatment such as Milk of Magnesia, Sennakot, Prune Juice, Suppositories, etc. in addition to the stool softener/fiber supplement Other: Do not use any NSAIDs Use acetaminophen (Tylenol) as recommended on the bottle Use the dispensed medication (see prescription) You should use an wjpj-fue-nogiduy stool softener (Docusate sodium) and/or a fiber [...] When: In 2 weeks Aubree Ireland MD [phone] [place] [address] PCP Requested Referral Additional Provider to Provider [...] (more content not included)... Normal [facility] NURSING PROGon 08-01-2024 NURSING PROG HNO ID: [id number] Author: GRADY HARRIS RN Service: Nursing Author [...] until patient is discharged. Normal [facility] THERAPY NTon 08-01-2024 THERAPY NT HNO ID: [id number] Author: AUBREE SHORT, OTR/L Service: Occupational Therapy Author Type: Occupational Therapist Type: Therapy (PT/OT/Speech/Resp) Filed: 08/01/2024 15:28 Note Text: Occupational Therapy Evaluation Summary SERVICE DATE: 08/01/2024 SERVICE TIME: 1428 to 1502 ROOM: [id number] DISCHARGE RECOMMENDATIONS Home OT Recommended Discharge Disposition [...] daily living (ADL) TREATMENT INTERVENTIONS Evaluation, Self Alf Management (20779) Timed Code Treatment (minutes): 13 Skilled Treatment Time (minutes): 28 $ Evaluation - Low (79963) Billed Units: 1 unit Self Alf Management (48536) Treatment Minutes: 13 $ Self Alf Management (24997) Billed Units: 1 unit Provided patient with [...] 2024 TIME: 3:18 PM Normal [facility] aPTT PPPon 08-01-2024 aPTT Coag (PPP) [Time] 78.0 s High 23.0-32.4 [facility] Comment on above: Order Comment: Speci men Type: BLOOD SPECIMEN Ordering Facility: [facility] Address: [address] [place] [address] Performed By: #### 3 040-3 #### [facility] CLIA [id number] 1 [place], [place] [id number] [place] [address] [place] aPTT Coag (PPP) [Time] 61.1 s High 23.0-32.4 [facility] Comment on above: Order Comment: Speci men Type: BLOOD SPECIMEN Ordering Facility: [facility] Address: [facility] [place] [address] Performed By: #### 1 4979-9 #### [facility] CLIA [id number] [address] [place] ANES POSTPROC EVALon 024 ANES POSTPROC EVAL HNO ID: [id number] Author: BRIE HODGE MD, PhD Service: Anesthesiology Author Type: Anesthesiologist Type: Anesthesia Postprocedure Evaluation Filed: 07/31/2024 16:23 Note Text: POST ANESTHESIA EVALUATION NOTE : 1955 Procedure Summary Date: 07/31/24 Room / Location: [facility] Anesthesia Start: 1428 Anesthesia Stop: 1445 Procedure: [...] July 31, 2024 TIME: 4:22 PM CSN: [id number] Normal [facility] ANES PRE-OPon 07-31-2024 [place] PRE-OP HNO ID: [id number] Author: BRIE HODGE MD, PhD Service: Anesthesiology [...] and consent discussed: yes. Patient / Responsible Democrat agrees to proceed: yes Patient / Surrogate [...] (more content not included)... Normal [facility] Basic metabolic 2000 panelon 07-31-2024 Anion gap [Moles/Vol] 16 mmol/L High 8-15 [facility] Comment on above: Order Comment: Speci men Type: BLOOD SPECIMEN Ordering Facility: [facility] Address: [address] [place] [address] Performed By: #### 3 040-3 #### [facility] CLIA [id number] 1 [place] [address] [place] Calcium [Mass/Vol] 7.8 mg/dL Low 8.5-10.2 [facility] Comment on above: Order Comment: Speci men Type: BLOOD SPECIMEN Ordering Facility: [facility] Address: [address] [place] [address] Performed By: #### 3 040-3 #### [facility] CLIA [id number] [address] Chloride [Moles/Vol] 99 mmol/L Normal 98-107 [facility] Comment on above: Order Comment: Speci men Type: BLOOD SPECIMEN Ordering Facility: [facility] Address: [address] [place] [address] Performed By: #### 3 040-3 #### [facility] CLIA [id number] [address] CO2 [Moles/Vol] 18 mmol/L Low 22-30 [facility] Comment on above: Order Comment: Speci men Type: BLOOD SPECIMEN Ordering Facility: [facility] Address: [address] [place] [address] Performed By: #### 3 040-3 #### [facility] CLIA [id number] [address] Creatinine [Mass/Vol] 0.62 mg/dL Normal 0.58-0.96 [facility] Comment on above: Order Comment: Speci men Type: BLOOD SPECIMEN Ordering Facility: [facility] Address: [address] [place] [address] Performed By: #### 3 040-3 #### [facility] CLIA [id number] [address] Creatinine and Glomerular filtration rate.predicted panel (S/P/Bld) 97 mL/min/1.73m??? Normal >=60 [facility] Comment on above: Order Comment: Speci men Type: BLOOD SPECIMEN Ordering Facility: [facility] Address: [address] [place] [address] Result Comment: Gisela mated Glomerular Filtration Rate [...] Performed By: #### 3 040-3 #### [facility] CLIA [id number] 1 [place] [address] [place] Glucose [Mass/Vol] 61 mg/dL Low 74-99 [facility] Comment on above: Order Comment: Monika dye Type: BLOOD SPECIMEN Ordering Facility: [facility] Address: [address] [place] [address] Result Comment: The Canadian Diabetes Association (ADA) provides guidance for cutoff [...] Standards of Medical Care in Diabetes 2016, Canadian Diabetes Association. Diabetes Care. 2016.39(Suppl 1). Performed By: #### 3 040-3 #### [facility] CLIA [id number] 1 [place] [address] [place] Potassium [Moles/Vol] 3.2 mmol/L Low 3.7-5.1 [facility] Comment on above: Order Comment: Monika dye Type: BLOOD SPECIMEN Ordering Facility: [facility] Address: [address] [place] [address] Performed By: #### 3 040-3 #### [facility] CLIA [id number] 1 [place] [address] [place] Sodium [Moles/Vol] 133 mmol/L Low 136-144 [facility] Comment on above: Order Comment: Monika men Type: BLOOD SPECIMEN Ordering Facility: [facility] Address: [address] [place] [address] Performed By: #### 3 040-3 #### [facility] CLIA [id number] 1 [place] [address] [place] Urea nitrogen [Mass/Vol] 6 mg/dL Low 7-21 [facility] Comment on above: Order Comment: Speci men Type: BLOOD SPECIMEN Ordering Facility: [facility] Address: [address] [place] [address] Performed By: #### 3 040-3 #### [facility] CLIA [id number] [address] CBC panel Auto (Bld)on 07-31 Erythrocyte distribution width (RBC) [Ratio] 21.6 % High 11.5-15.0 [facility] Comment on above: Order Comment: Speci men Type: BLOOD SPECIMEN Ordering Facility: [facility] Address: [address] [place] [address] Performed By: #### 3 040-3 #### [facility] CLIA [id number] [address] Hematocrit (Bld) [Volume fraction] 31.9 % Low 36.0-46.0 [facility] Comment on above: Order Comment: Speci men Type: BLOOD SPECIMEN Ordering Facility: [facility] Address: [address] [place] [address] Performed By: #### 3 040-3 #### [facility] CLIA [id number] [address] Hemoglobin (Bld) [Mass/Vol] 8.9 g/dL Low 11.5-15.5 [facility] Comment on above: Order Comment: Speci men Type: BLOOD SPECIMEN Ordering Facility: [facility] Address: [address] [place] [address] Performed By: #### 3 040-3 #### [facility] CLIA [id number] [address] MCH (RBC) [Entitic mass] 22.6 pg Low 26.0-34.0 [facility] Comment on above: Order Comment: Speci men Type: BLOOD SPECIMEN Ordering Facility: [facility] Address: [address] [place] [address] Performed By: #### 3 040-3 #### [facility] CLIA [id number] [address] MCHC (RBC) [Mass/Vol] 27.9 g/dL Low 30.5-36.0 [facility] Comment on above: Order Comment: Speci men Type: BLOOD SPECIMEN Ordering Facility: [facility] Address: [address] [place] [address] Performed By: #### 3 040-3 #### [facility] CLIA [id number] [address] MCV (RBC) [Entitic vol] 81.0 fL Normal 80.0-100.0 [facility] Comment on above: Order Comment: Speci men Type: BLOOD SPECIMEN Ordering Facility: [facility] Address: [address] [place] [address] Performed By: #### 3 040-3 #### [facility] CLIA [id number] [address] Nucleated RBC (Bld) [#/Vol] 10*3/uL Normal <0.01 [facility] Comment on above: Order Comment: Speci men Type: BLOOD SPECIMEN Ordering Facility: [facility] Address: [address] [place] [address] Performed By: #### 3 040-3 #### [facility] CLIA [id number] [address] Platelet mean volume (Bld) [Entitic vol] 8.9 fL Low 9.0-12.7 [facility] Comment on above: Order Comment: Speci men Type: BLOOD SPECIMEN Ordering Facility: [facility] Address: [address] [place] [address] Performed By: #### 3 040-3 #### [facility] CLIA [id number] [address] Platelets (Bld) [#/Vol] 576 10*3/uL High 150-400 [facility] Comment on above: Order Comment: Speci men Type: BLOOD SPECIMEN Ordering Facility: [facility] Address: [address] [place], [place] [address] Performed By: #### 3 040-3 #### [facility] CLIA [id number] [address] [place] RBC (Bld) [#/Vol] 3.94 10*6/uL Normal 3.90-5.20 [facility] Comment on above: Order Comment: Speci men Type: BLOOD SPECIMEN Ordering Facility: [facility] Address: [address] [place] [address] Performed By: #### 3 040-3 #### [facility] CLIA [id number] [address] [place] WBC (Bld) [#/Vol] 10.01 10*3/uL Normal 3.70-11.00 [facility] Comment on above: Order Comment: Speci men Type: BLOOD SPECIMEN Ordering Facility: [facility] Address: [address] [place] [address] Performed By: #### 3 040-3 #### [facility] CLIA [id number] [address] CONSULTon 07-31-2024 CONSULT HNO ID: [id number] Author: BELEN MENARD APRN.CNP Service: Gastroenterology Author [...] warfarin), hypothyroidism and RA who presents to [facility] as transfer from [facility]. Presented to [facility] on 07/28/2024. On 07/29 lab as follows: [...] COPD (chronic obstructive pulmonary disease) ([facility]) DVT (deep venous thrombosis) ([facility]) 2005 IBS (irritable bowel syndrome) Insomnia RA (rheumatoid arthritis) ([facility]) PAST SURGICAL HISTORY Procedure Laterality [...] (more content not included)... Normal [facility] Hepatic function 2000 panelo n 07-31-2024 Albumin [Mass/Vol] 2.0 g/dL Low 3.9-4.9 [facility] Comment on above: Order Comment: Speci men Type: BLOOD SPECIMEN Ordering Facility: [facility] Address: [address] [place] [address] [place] [id number] Performed By: #### 1 7653-9 #### [facility] CLIA [id number] [address] ALP [Catalytic activity/Vol] 88 U/L Normal 34-123 [facility] Comment on above: Order Comment: Speci men Type: BLOOD SPECIMEN Ordering Facility: [facility] Address: [address] [place] [address] Performed By: #### 1 4979-9 #### [facility] CLIA [id number] [address] [place] ALT With P-5'-P [Catalytic activity/Vol] 6 U/L Low 7-38 [facility] Comment on above: Order Comment: Speci men Type: BLOOD SPECIMEN Ordering Facility: [facility] Address: [address] [place] [address] Performed By: #### 1 4979-9 #### [facility] CLIA [id number] [address] AST With P-5'-P [Catalytic activity/Vol] 14 U/L Normal 13-35 [facility] Comment on above: Order Comment: Speci men Type: BLOOD SPECIMEN Ordering Facility: [facility] Address: [address] [place] [address] Performed By: #### 1 4979-9 #### [facility] CLIA [id number] [address] Bilirubin [Mass/Vol] 0.4 mg/dL Normal 0.2-1.3 [facility] Comment on above: Order Comment: Speci men Type: BLOOD SPECIMEN Ordering Facility: [facility] Address: [address] [place] [address] Performed By: #### 1 4979-9 #### [facility] CLIA [id number] [address] Bilirubin.conjugated [Mass/Vol] mg/dL Normal <0.2 [facility] Comment on above: Order Comment: Speci men Type: BLOOD SPECIMEN Ordering Facility: [facility] Address: [address] [place] [address] Performed By: #### 1 4979-9 #### [facility] CLIA [id number] 1 [place] [address] [place] Protein [Mass/Vol] 5.7 g/dL Low 6.3-8.0 [facility] Comment on above: Order Comment: Speci men Type: BLOOD SPECIMEN Ordering Facility: [facility] Address: [address] [place], [place] [address] Performed By: #### 1 4979-9 #### [facility] CLIA [id number] 1 [place] [address] [place] NURSING PROGon 07-31-2024 NURSING PROG HNO ID: [id number] Author: TELLO DENNEY RN Service: Nursing Author Type: Registered Nurse Type: Nursing Progress Note Filed: 07/31/2024 15:16 Note Text: Attempted to call report to floor RN. On hold for 10 minutes. Called back and left message for floor RN to call this nurse back. Normal [facility] THERAPY NTon 07-31-2024 THERAPY NT HNO ID: [id number] Author: GM SALDAÑA OTR/Linus Service: Occupational Therapy Author Type: Occupational Therapist Type: Therapy (PT/OT/Speech/Resp) Filed: 07/31/2024 14:33 Note Text: OCCUPATIONAL THERAPY MISSED VISIT SERVICE DATE: 07/31/2024 SERVICE TIME: 1433 ROOM: [facility]) Patient not seen due to Test / Procedure. SIGNATURE: ABDI Garcia/Linus PATIENT NAME: Amna Sequeira DATE: July 31, 2024 TIME: 2:33 PM Normal [facility] THERAPY NT HNO ID: [id number] Author: LISSETTE MINAYA, PT Service: Physical Therapy Author Type: Physical Therapist Type: Therapy (PT/OT/Speech/Resp) Filed: 07/31/2024 13:05 Note Text: Physical Therapy Evaluation Summary SERVICE DATE: 07/31/2024 SERVICE TIME: 1054 to 1130 ROOM: [place] [address] PT 6 Clicks Score: 12 DISCHARGE RECOMMENDATIONS [...] Reduced mobility-other TREATMENT INTERVENTIONS Evaluation, Therapeutic Activity (12995) $ Evaluation-Moderate (24194) Billed Units: 1 unit Therapeutic Activity (29158) Treatment Minutes: 10 $ Therapeutic Activity (42169) Billed Units: 1 unit Facilitated mobility as [...] (more content not included)... Normal [facility] Upper GI endoscopyon 024 Upper GI endoscopy [facility] Gastrointestinal Endoscopy Patient Name: Amna Sequeira Procedure Date: 07/31/2024 2:22 PM Date of : 1955 Admit Type: Inpatient Room: [place] [address] Gender: Female Note Status: Finalized Attending MD: Yaya Howard MD, [id number] Procedure: Upper GI endoscopy Indications: Abnormal CT [...] of therapy. Procedure Code(s): --- Professional --- 31491, Esophagogastroduodenoscop y, flexible, transoral; diagnostic, including collection of specimen(s) by brushing or washing, when performed (separate procedure) --- Technical --- 98259, Esophagogastroduodenoscop y, flexible, transoral; diagnostic, including collection [...] parts of digestive tract CPT copyright 2020 [employer]. All rights reserved. The codes documented (more content not included)... Normal [facility] aPTT PPPon 07-31-2024 aPTT Coag (PPP) [Time] 113.7 s High 23.0-32.4 [facility] Comment on above: Order Comment: Monika dye Type: BLOOD SPECIMEN Ordering Facility: [facility] Address: [address] [place] [address] Performed By: #### 1 4979-9 #### [facility] CLIA [id number] [address] [place] [address] [place] aPTT Coag (PPP) [Time] 42.4 s High 23.0-32.4 [facility] Comment on above: Order Comment: Monika dye Type: BLOOD SPECIMENOrdering Facility: [facility] Address: [address] [place] [address] Performed By: #### 1 4979-9 ####[facility] [id number] [address] aPTT Coag (PPP) [Time] 112.6 s High 23.0-32.4 [facility] Comment on above: Order Comment: Speci men Type: BLOOD SPECIMEN Ordering Facility: [facility] Address: [address] [place] [address] Performed By: #### 1 4979-9 #### [facility] CLIA [id number] [address] aPTT Coag (PPP) [Time] 132.4 s High 23.0-32.4 [facility] Comment on above: Order Comment: Speci men Type: BLOOD SPECIMENOrdering Facility: [facility] Address: [address] [place] [address] Performed By: #### 1 4979-9 ####[facility] [id number] [address] [place] Basic metabolic 2000 panelon 07-30-2024 Anion gap [Moles/Vol] 17 mmol/L High 8-15 [facility] Comment on above: Order Comment: Speci men Type: BLOOD SPECIMEN Ordering Facility: [facility] Address: [address] [place] [address] Performed By: #### 1 4979-9 #### [facility] CLIA [id number] [address] [place] Calcium [Mass/Vol] 7.7 mg/dL Low 8.5-10.2 [facility] Comment on above: Order Comment: Speci men Type: BLOOD SPECIMEN Ordering Facility: [facility] Address: [address] [place] [address] Performed By: #### 1 4979-9 #### [facility] CLIA [id number] [address] Chloride [Moles/Vol] 99 mmol/L Normal 98-107 [facility] Comment on above: Order Comment: Speci men Type: BLOOD SPECIMEN Ordering Facility: [facility] Address: [address] [place] [address] Performed By: #### 1 4979-9 #### [facility] CLIA [id number] [address] [place] CO2 [Moles/Vol] 20 mmol/L Low 22-30 [facility] Comment on above: Order Comment: Speci men Type: BLOOD SPECIMEN Ordering Facility: [facility] Address: [address] [place] [address] Performed By: #### 1 4979-9 #### [facility] CLIA [id number] [address] [place] Creatinine [Mass/Vol] 0.60 mg/dL Normal 0.58-0.96 [facility] Comment on above: Order Comment: Speci men Type: BLOOD SPECIMEN Ordering Facility: [facility] Address: [address] [place] [address] Performed By: #### 1 4979-9 #### [facility] CLIA [id number] [address] Creatinine and Glomerular filtration rate.predicted panel (S/P/Bld) 97 mL/min/1.73m??? Normal >=60 [facility] Comment on above: Order Comment: Speci men Type: BLOOD SPECIMEN Ordering Facility: [facility] Address: [address] [place] [address] Result Comment: Gisela mated Glomerular Filtration Rate [...] 1 4979-9 #### [facility] CLIA [id number] [address] [place] Glucose [Mass/Vol] 58 mg/dL Low 74-99 [facility] Comment on above: Order Comment: Monika dye Type: BLOOD SPECIMEN Ordering Facility: [facility] Address: [address] [place] [address] Result Comment: The Canadian Diabetes Association (ADA) provides guidance for cutoff [...] Standards of Medical Care in Diabetes 2016, Canadian Diabetes Association. Diabetes Care. 2016.39(Suppl 1). Performed By: #### 1 4979-9 #### [facility] CLIA [id number] [address] [place] [address] [place] Potassium [Moles/Vol] 3.7 mmol/L Normal 3.7-5.1 [facility] Comment on above: Order Comment: Monika dye Type: BLOOD SPECIMEN Ordering Facility: [facility] Address: [address] [place] [address] Performed By: #### 1 4979-9 #### [facility] CLIA [id number] [address] [place] Sodium [Moles/Vol] 136 mmol/L Normal 136-144 [facility] Comment on above: Order Comment: Isabelai men Type: BLOOD SPECIMEN Ordering Facility: [facility] Address: [address] [place] [address] Performed By: #### 1 4979-9 #### [facility] CLIA [id number] 1 [place] [address] [place] Urea nitrogen [Mass/Vol] 7 mg/dL Normal 7-21 [facility] Comment on above: Order Comment: Isabelai men Type: BLOOD SPECIMEN Ordering Facility: [facility] Address: [address] [place] [address] Performed By: #### 1 4979-9 #### [facility] CLIA [id number] [address] STATES [facility] CBC panel Auto (Bld)on 07-30 Erythrocyte distribution width (RBC) [Ratio] 21.3 % High 11.5-15.0 [facility] Comment on above: Order Comment: Speci men Type: BLOOD SPECIMENOrdering Facility: [facility] Address: [address] [place] [address] Performed By: #### 5 8410-2 ####[facility]ORATORYCLIA [id number] [address] Hematocrit (Bld) [Volume fraction] 29.7 % Low 36.0-46.0 [facility] Comment on above: Order Comment: Speci men Type: BLOOD SPECIMENOrdering Facility: [facility] Address: [address] [place] [address] Performed By: #### 5 8410-2 ####[facility]ORATORYCLIA [id number] [address] Hemoglobin (Bld) [Mass/Vol] 8.8 g/dL Low 11.5-15.5 [facility] Comment on above: Order Comment: Speci men Type: BLOOD SPECIMENOrdering Facility: [facility] Address: [address] [place] [address] Performed By: #### 5 8410-2 ####[facility] LABORATORYCLIA [id number] [address] STATES [facility] MCH (RBC) [Entitic mass] 23.2 pg Low 26.0-34.0 [facility] Comment on above: Order Comment: Speci men Type: BLOOD SPECIMENOrdering Facility: [facility] Address: [address] [place] [address] Performed By: #### 5 8410-2 ####[facility]ORATORYCLIA [id number] [address] [place] MCHC (RBC) [Mass/Vol] 29.6 g/dL Low 30.5-36.0 [facility] Comment on above: Order Comment: Speci men Type: BLOOD SPECIMENOrdering Facility: [facility] Address: [address] [place] [address] Performed By: #### 5 8410-2 ####[facility] LABORATORYCLIA [id number] [address] [place] MCV (RBC) [Entitic vol] 78.2 fL Low 80.0-100.0 [facility] Comment on above: Order Comment: Speci men Type: BLOOD SPECIMENOrdering Facility: [facility] Address: [address] [place] [address] Performed By: #### 5 8410-2 ####[facility] LABORATORYCLIA [id number] [address] [place] Nucleated RBC (Bld) [#/Vol] 10*3/uL Normal <0.01 [facility] Comment on above: Order Comment: Speci men Type: BLOOD SPECIMENOrdering Facility: [facility] Address: [address] [place] [address] Performed By: #### 5 8410-2 ####[facility] LABORATORYCLIA [id number] [address] [place] Platelet mean volume (Bld) [Entitic vol] 9.2 fL Normal 9.0-12.7 [facility] Comment on above: Order Comment: Speci men Type: BLOOD SPECIMENOrdering Facility: [facility] Address: [address] [place] [address] Performed By: #### 5 8410-2 ####[facility] LABORATORYCLIA [id number] [address] [place] Platelets (Bld) [#/Vol] 548 10*3/uL High 150-400 [facility] Comment on above: Order Comment: Speci men Type: BLOOD SPECIMENOrdering Facility: [facility] Address: [address] [place] [address] Performed By: #### 5 8410-2 ####[facility] LABORATORYCLIA [id number] [address] STATES OF [facility] RBC (Bld) [#/Vol] 3.80 10*6/uL Low 3.90-5.20 [facility] Comment on above: Order Comment: Monika dye Type: BLOOD SPECIMENOrdering Facility: [facility] Address: [address] [place] [address] Performed By: #### 5 8410-2 ####[facility] LABORATORYCLIA [id number] [place] [id number] [facility] WBC (Bld) [#/Vol] 11.50 10*3/uL High 3.70-11.00 [facility] Comment on above: Order Comment: Monika dye Type: BLOOD SPECIMENOrdering Facility: [facility] Address: [address] [place] [address] Performed By: #### 5 8410-2 ####[facility] LABORATORYCLIA [id number] [address] CONSULTon 07-30-2024 CONSULT HNO ID: [id number] Author: AUBREE IRELAND MD Service: General Surgery [...] to the ED as a transfer from [place] with symptoms of vomiting x 2 months. [...] (HCC) DVT (deep venous thrombosis) ([facility]) 2005 IBS (irritable bowel syndrome) Insomnia RA (rheumatoid arthritis) ([facility]) PAST SURGICAL HISTORY Procedure Laterality [...] (more content not included)... Normal [facility] CONSULT HNO ID: [id number] Author: OSVALDO SEGURA MD Service: Pain Management [...] DVTs on Coumadin, hypothyroidism transferred 07/28 from [place] with nausea, emesis, anorexia, 30 pound weight [...] Patient is followed by Dr. Simon in [place] for chronic pain management. Home pain regimen [...] (more content not included)... Normal [facility] CONSULT PROGon 07-30-2024 CONSULT PROG HNO ID: [id number] Author: CHANTEL VILLATORO RPh Service: Pharmacy Author [...] pharmacy if there are questions. Chantel Villatoro [facility] NUTRITIONon 07-30-2024 NUTRITION HNO ID: [id number] Author: BARBARA CHAUDHARI RD Service: Nutrition Therapy [...] Weight Type: Current weight Estimated kilocalorie needs: 8817-3328 Calorie Calculation Method: 20-25 kcals/kg Estimated protein [...] 2024 TIME: 1009 AM Normal [facility] aPTT PPPon 07-30-2024 aPTT Coag (PPP) [Time] 123.4 s High 23.0-32.4 [facility] Comment on above: Order Comment: Speci men Type: BLOOD SPECIMENOrdering Facility: [facility] Address: [address] [place] [address] Performed By: #### 1 4979-9 ####[facility] LABORATORYCLIA [id number] [address] STATES OF [facility] aPTT Coag (PPP) [Time] s High 23.0-32.4 [facility] Comment on above: Order Comment: Speci men Type: BLOOD SPECIMEN Ordering Facility: [facility] Address: [address] [place] [address] Performed By: #### 1 4979-9 #### [facility] CLIA [id number] [address] OF [facility] aPTT Coag (PPP) [Time] 47.7 s High 23.0-32.4 [facility] Comment on above: Order Comment: Speci men Type: BLOOD SPECIMENOrdering Facility: [facility] Address: [address] [place] [address] Performed By: #### 1 4979-9 ####[facility] LABORATORYCLIA [id number] [address] OF [facility] ALLIED HEALTHon 07-29-2024 ALLIED HEALTH HNO ID: [id number] Author: SMILEY WHELAN RT(R) Service: Radiology Author [...] PATIENT PRESENTS WITH AN IMPLANTABLE OR ATTACHED FAMILY SERVICE WORKER: No ALLERGIES: Reviewed and unchanged CONTRAST ALLERGY: [...] 2024 TIME: 11:08 AM Normal [facility] Basic metabolic 2000 panelon 07-29-2024 Anion gap [Moles/Vol] 11 mmol/L Normal 8-15 [facility] Comment on above: Order Comment: Speci men Type: BLOOD SPECIMEN Ordering Facility: [facility] Address: [address] [place] [address] Performed By: #### 2 4321-2 #### [facility] CLIA [id number] 1 [place] [address] [place] Calcium [Mass/Vol] 8.1 mg/dL Low 8.5-10.2 [facility] Comment on above: Order Comment: Speci men Type: BLOOD SPECIMEN Ordering Facility: [facility] Address: [address] [place] [address] Performed By: #### 2 4321-2 #### [facility] CLIA [id number] 1 [place] [address] [place] Chloride [Moles/Vol] 103 mmol/L Normal 98-107 [facility] Comment on above: Order Comment: Speci men Type: BLOOD SPECIMEN Ordering Facility: [facility] Address: [address] [place] [address] Performed By: #### 2 4321-2 #### [facility] CLIA [id number] 1 [place] [address] [place] CO2 [Moles/Vol] 23 mmol/L Normal 22-30 [facility] Comment on above: Order Comment: Speci men Type: BLOOD SPECIMEN Ordering Facility: [facility] Address: [address] [place] [address] Performed By: #### 2 4321-2 #### [facility] CLIA [id number] 1 [place] [address] [place] Creatinine [Mass/Vol] 0.63 mg/dL Normal 0.58-0.96 [facility] Comment on above: Order Comment: Speci men Type: BLOOD SPECIMEN Ordering Facility: [facility] Address: [address] [place] [address] Performed By: #### 2 4321-2 #### [facility] CLIA [id number] [address] [place] [address] Creatinine and Glomerular filtration rate.predicted panel (S/P/Bld) 96 mL/min/1.73m??? Normal >=60 [facility] Comment on above: Order Comment: Monika dye Type: BLOOD SPECIMEN Ordering Facility: [facility] Address: [address] [place] [address] Result Comment: Gisela mated Glomerular Filtration Rate [...] GFR. Performed By: #### 2 4321-2 #### [facility] CLIA [id number] [address] [place] [address] [place] Glucose [Mass/Vol] 82 mg/dL Normal 74-99 [facility] Comment on above: Order Comment: Monika dye Type: BLOOD SPECIMEN Ordering Facility: [facility] Address: [address] [place] [address] Result Comment: The Canadian Diabetes Association (ADA) provides guidance for cutoff [...] Standards of Medical Care in Diabetes 2016, Canadian Diabetes Association. Diabetes Care. 2016.39(Suppl 1). Performed By: #### 2 4321-2 #### [facility] CLIA [id number] [address] [place] Potassium [Moles/Vol] 3.6 mmol/L Low 3.7-5.1 [facility] Comment on above: Order Comment: Speci men Type: BLOOD SPECIMEN Ordering Facility: [facility] Address: [address] [place] [address] Performed By: #### 2 4321-2 #### [facility] CLIA [id number] [address] [place] Sodium [Moles/Vol] 137 mmol/L Normal 136-144 [facility] Comment on above: Order Comment: Speci men Type: BLOOD SPECIMEN Ordering Facility: [facility] Address: [address] [place] [address] Performed By: #### 2 4321-2 #### [facility] CLIA [id number] [address] STATES OF [facility] Urea nitrogen [Mass/Vol] 10 mg/dL Normal 7-21 [facility] Comment on above: Order Comment: Speci men Type: BLOOD SPECIMEN Ordering Facility: [facility] Address: [address] [place] [address] Performed By: #### 2 4321-2 #### [facility] CLIA [id number] 1 [place] [address] [place] CBC W/Diff, Automatedon 09-3 PATH REV Reviewed Normal [facility] Comment on above: Result Comment: Neut rophilic leukocytosis. Microcytic anemia. Thrombocytosis. Clinical correlation necessary. Hi Jenkins M.D. 07/29/24 Neutrophilic leukocytosis. Microcytic anemia. Thrombocytosis. Clinical correlation necessary. Hi Jenkins M.D. 07/29/24 AMENDED REPORT 07/29/24 1259 PATH REV previously reported as: February Performed By: #### L 100.0100, L500.4050, L501.2450 #### [facility] [address] [place], [place], [id number] CBC panel Auto (Bld)on 07-29 Erythrocyte distribution width (RBC) [Ratio] 21.2 % High 11.5-15.0 [facility] Comment on above: Order Comment: Speci men Type: BLOOD SPECIMEN Ordering Facility: [facility] Address: [address] [place] [address] Performed By: #### 3 040-3 #### [facility] CLIA [id number] [address] OF [facility] Hematocrit (Bld) [Volume fraction] 30.8 % Low 36.0-46.0 [facility] Comment on above: Order Comment: Speci men Type: BLOOD SPECIMEN Ordering Facility: [facility] Address: [address] [place] [address] Performed By: #### 3 040-3 #### [facility] CLIA [id number] [address] STATES OF [facility] Hemoglobin (Bld) [Mass/Vol] 9.1 g/dL Low 11.5-15.5 [facility] Comment on above: Order Comment: Speci men Type: BLOOD SPECIMEN Ordering Facility: [facility] Address: [address] [place] [address] Performed By: #### 3 040-3 #### [facility] CLIA [id number] [address] [place] MCH (RBC) [Entitic mass] 23.0 pg Low 26.0-34.0 [facility] Comment on above: Order Comment: Speci men Type: BLOOD SPECIMEN Ordering Facility: [facility] Address: [address] [place] [address] Performed By: #### 3 040-3 #### [facility] CLIA [id number] [address] MCHC (RBC) [Mass/Vol] 29.5 g/dL Low 30.5-36.0 [facility] Comment on above: Order Comment: Speci men Type: BLOOD SPECIMEN Ordering Facility: [facility] Address: [address] [place] [address] Performed By: #### 3 040-3 #### [facility] CLIA [id number] [address] MCV (RBC) [Entitic vol] 78.0 fL Low 80.0-100.0 [facility] Comment on above: Order Comment: Speci men Type: BLOOD SPECIMEN Ordering Facility: [facility] Address: [address] [place] [address] Performed By: #### 3 040-3 #### [facility] CLIA [id number] [address] Nucleated RBC (Bld) [#/Vol] 10*3/uL Normal <0.01 [facility] Comment on above: Order Comment: Speci men Type: BLOOD SPECIMEN Ordering Facility: [facility] Address: [address] [place] [address] Performed By: #### 3 040-3 #### [facility] CLIA [id number] [address] Platelet mean volume (Bld) [Entitic vol] 8.6 fL Low 9.0-12.7 [facility] Comment on above: Order Comment: Speci men Type: BLOOD SPECIMEN Ordering Facility: [facility] Address: [address] [place] [address] Performed By: #### 3 040-3 #### [facility] CLIA [id number] [address] Platelets (Bld) [#/Vol] 565 10*3/uL High 150-400 [facility] Comment on above: Order Comment: Speci men Type: BLOOD SPECIMEN Ordering Facility: [facility] Address: [address] [place] [address] Performed By: #### 3 040-3 #### [facility] CLIA [id number] [address] [place] RBC (Bld) [#/Vol] 3.95 10*6/uL Normal 3.90-5.20 [facility] Comment on above: Order Comment: Speci men Type: BLOOD SPECIMEN Ordering Facility: [facility] Address: [address] [place] [address] Performed By: #### 3 040-3 #### [facility] CLIA [id number] [address] WBC (Bld) [#/Vol] 16.36 10*3/uL High 3.70-11.00 [facility] Comment on above: Order Comment: Speci men Type: BLOOD SPECIMEN Ordering Facility: [facility] Address: [address] [place] [address] Performed By: #### 3 040-3 #### [facility] CLIA [id number] [address] CONFIRM BLOOD TYPEon 024 ABO A Normal [facility] Comment on above: Order Comment: Speci men Type: BLOOD SPECIMENOrdering Facility: [facility] Address: [address] [place] [address] Performed By: #### C ONABO ####[facility] BLOOD BANKCLIA [id number] [address] Rh Nom (Bld) Negative Normal [facility] Comment on above: Order Comment: Speci men Type: BLOOD SPECIMENOrdering Facility: [facility] Address: [address] [place] [address] Performed By: #### C ONABO ####[facility] BLOOD BANKCLIA [id number] [address] CONSULT PROGon 07-29-2024 CONSULT PROG HNO ID: [id number] Author: BELEN PERES RPh Service: Pharmacy Author [...] [place] [phone]. Age: [age] year old Allergies: ALLERGIES Allergen [...] No results found for: ROBERT Peres, Pharm.D., [facility] CT ABD/PEL W IVCONon 024 CT ABD/PEL W IVCON * * *Final Report* * * DATE OF EXAM: Jul 29 2024 11:10AM [facility] 0530 - CT ABD/PEL W IVCON / [...] (more content not included)... Normal [facility] ED NOTEon 07-29-2024 ED NOTE HNO ID: [id number] Author: YENNIFER ACOSTA RN Service: Emergency Medicine Author Type: Registered Nurse Type: ED Notes Filed: 07/29/2024 04:37 Note Text: Patient put on 2L O2 for o2 Sat 91% while sleeping Normal [facility] ED NOTE HNO ID: [id number] Author: YENNIFER ACOSTA RN Service: Emergency Medicine Author Type: Registered Nurse Type: ED Notes Filed: 07/29/2024 01:53 Note Text: Resident Elly Graham at bedside to clarify heparin orders with patient Normal [facility] ED NOTE HNO ID: [id number] Author: YENNIFER ACOSTA RN Service: Emergency Medicine Author Type: Registered Nurse Type: ED Notes Filed: 07/29/2024 01:48 Note Text: Pt requests clarification on reasoning behind heparin drip. Admitting paged. Normal [facility] H. pylori IgG IA Qlon 2023 H. PYLORI IGG, QUAL Negative Normal Negative [facility] Comment on above: Order Comment: Monika dye Type: BLOOD SPECIMEN Ordering Facility: [facility] Address: [address] [place] [address] Result Comment: Messi ot exclude H. pylori infection if the specimen collected 3-4 weeks after onset of symptoms. Performed By: #### 3 040-3 #### [facility] CLIA [id number] [address] STATES OF [facility] aPTT PPPon 07-29-2024 aPTT Coag (PPP) [Time] 70.3 s High 23.0-32.4 [facility] Comment on above: Order Comment: Monika dye Type: BLOOD SPECIMEN Ordering Facility: [facility] Address: [address] [place] [address] Performed By: #### 3 040-3 #### [facility] CLIA [id number] [address] OF [facility] aPTT Coag (PPP) [Time] 85.8 s High 23.0-32.4 [facility] Comment on above: Order Comment: Speci men Type: BLOOD SPECIMEN Ordering Facility: [facility] Address: [address] [place] [address] Performed By: #### 3 040-3 #### [facility] CLIA [id number] [address] aPTT Coag (PPP) [Time] 45.6 s High 23.0-32.4 [facility] Comment on above: Order Comment: Speci men Type: BLOOD SPECIMEN Ordering Facility: [facility] Address: [address] [place] [address] Performed By: #### 3 040-3 #### [facility] CLIA [id number] [address] aPTT Coag (PPP) [Time] 26.5 s Normal 23.0-32.4 [facility] Comment on above: Order Comment: Speci men Type: BLOOD SPECIMENOrdering Facility: [facility] Address: [address] [place] [address] Performed By: #### 1 4979-9 ####[facility] LABORATORYCLIA [id number] [address] OF [facility] 12 Lead EKGon 07-28-2024 12 Lead EKG [facility] [address] [place] [address] 12 Lead EKG 07/28/24 1615 MR#: [id number] Acct: [id number] Name: AMNA SEQUEIRA Rep #: [id number] : [id number] 69 From: Raulito Lopez MD [...] ECG Confirmed by RAULITO LOPEZ MD ([id number]), medical transcription editor BRADY AHNYA ([id number]) on 07/30/2024 6:32:33 AM Referred By: Confirmed By:RAULITO LOPEZ MD 07/30/24 0632 Date Raulito Lopez MD CC: Dr. Toribio Salvador MD; Dr. Galindo Gutierrez MD Signed Normal [facility] Abdomen/Pelvis W IV Cont ONL Yon 07-28-2024 Abdomen/Pelvis W IV Cont ONLY [facility] Imaging Services [address] [place], [place] [address] Abdomen/Pelvis W IV Cont ONLY MR#: [id number] Acct: [id number] Name: AMNA SEQUEIRA Rep #: [id number] : 1955 F 69 From: Yazan Saravia PCP: Dr. Galindo Gutierrez MD Status: DEP ER Study: Abdomen/Pelvis W IV Cont ONLY Date of Exam: Exam# [id number] Ordering Dr: Toribio Salvador MD ADDENDUM by Dr. Yazan Smith MD on 08/11/24 at 1400 ADDENDUM [id number] addendum: There is an IVC filter. Recommend [...] Smith MD on 07/28/24 at 1921 ADDENDUM [id number] ADDENDUM: Critical finding called and case discussed. 07/28/2024 7:19 PM Jeramy Kwan Infected pancreatic pseudocyst, contained gastric perforation with abscess formation, focal area of pancreatic necrosis is in the differential. Electronically Signed: Yazan Smith MD at 19:21 EDT Reading Location ID and State: [facility] / [place] , Service support , N.B. : The above Results were Read Back by Yazan Smith MD to Toribio Salvador MD, and understanding confirmed on 07/28/2024 18:35:12 (ET). 07/28/241920 Date cc: Dr. Toribio Salvador MD; Dr. Galindo Gutierrez MD * Signed ADDENDUM by Dr. Yazan Smith MD on 07/28/24 at 1829 [id number] STUDY: CT Abdomen And Pelvis W/ Contrast [...] Dr. Hernandez (more content not included)... Normal [facility] Comprehensive Metabolic Prof ilon 07-28-2024 Albumin [Mass/Vol] 2.1 g/dL Low 3.2-5.0 [facility] Comment on above: Performed By: #### L 100.0100, L500.4050, L501.2450 ####[facility] [address] [place], [address] Albumin/Globulin [Mass ratio] 0.4 {ratio} Low 0.9-2.4 [facility] Comment on above: Performed By: #### L 100.0100, L500.4050, L501.2450 ####[facility] [address] [place], [address] ALK P 120 U/L High 45-117 [facility] Comment on above: Performed By: #### L 100.0100, L500.4050, L501.2450 ####[facility] [address] [place], [address] ALT [Catalytic activity/Vol] 9 U/L Low 13-56 [facility] Comment on above: Performed By: #### L 100.0100, L500.4050, L501.2450 ####[facility] [address] [place], [address] AST [Catalytic activity/Vol] 17 U/L Normal 15-37 [facility] Comment on above: Result Comment: Slig ht Hemolysis, Result may be falsely increased. Performed By: #### L 100.0100, L500.4050, L501.2450 ####[facility] [address] [place], [address] Bilirubin [Mass/Vol] 0.80 mg/dL Normal 0.20-1.00 [facility] Comment on above: Result Comment: For patients on eltrombopag therapy, use of Dimension Daisy TBIL is not recommended. Performed By: #### L 100.0100, L500.4050, L501.2450 ####[facility] [address] [place], [address] BUN/CRE 13.4 RATIO Normal 10-20 [facility] Comment on above: Performed By: #### L 100.0100, L500.4050, L501.2450 ####[facility] [address] [place], [address] CA,Total 8.7 mg/dL Normal 8.5-10.1 [facility] Comment on above: Performed By: #### L 100.0100, L500.4050, L501.2450 ####[facility] [address] [place], [address] Chloride [Moles/Vol] 102 mmol/L Normal 98-107 [facility] Comment on above: Performed By: #### L 100.0100, L500.4050, L501.2450 ####[facility] [address] [place], [address] CO2 [Moles/Vol] 26.0 mmol/L Normal 21.0-32.0 [facility] Comment on above: Performed By: #### L 100.0100, L500.4050, L501.2450 ####[facility] [address] [place], [address] Creatinine [Mass/Vol] 0.75 mg/dL Normal 0.55-1.02 [facility] Comment on above: Result Comment: The validity of the calculated GFR GFRAA in patients over 70 years has not been determined. Clinical correlation is essential. Performed By: #### L 100.0100, L500.4050, L501.2450 ####[facility] [address] [place], [address] ECRCL 69.28 ml/min Normal [facility] Comment on above: Performed By: #### L 100.0100, L500.4050, L501.2450 ####[facility] [address] [place], [address] EST GFR - AA 99 mL/min Normal >60 [facility] Comment on above: Result Comment: Afri can Canadian GFR Calc Performed By: #### L 100.0100, L500.4050, L501.2450 ####[facility] [address] [place], [address] GAP 8 Normal 5-15 [facility] Comment on above: Performed By: #### L 100.0100, L500.4050, L501.2450 ####[facility] [address] [place], [address] GFR/1.73 sq M.predicted among non-blacks MDRD (S/P/Bld) [Vol rate/Area] 82 mL/min/{1.73_m2} Normal >60 [facility] Comment on above: Result Comment: Non- GFR Calc Performed By: #### L 100.0100, L500.4050, L501.2450 ####[facility] [address] [place], [address] Globulin (S) [Mass/Vol] 5.3 g/dL High 2.2-4.2 [facility] Comment on above: Performed By: #### L 100.0100, L500.4050, L501.2450 ####[facility] [address] [place], [address] Glucose [Mass/Vol] 97 mg/dL Normal 74-106 [facility] Comment on above: Performed By: #### L 100.0100, L500.4050, L501.2450 ####[facility] [address] [place], [address] Potassium [Moles/Vol] 3.6 mmol/L Normal 3.5-5.1 [facility] Comment on above: Result Comment: Slig ht Hemolysis, Result may be falsely increased. Performed By: #### L 100.0100, L500.4050, L501.2450 ####[facility] [address] [place], [address] Sodium [Moles/Vol] 136 mmol/L Normal 136-145 [facility] Comment on above: Performed By: #### L 100.0100, L500.4050, L501.2450 ####[facility] [address] [place], [address] T PROT 7.4 g/dL Normal 6.4-8.2 [facility] Comment on above: Performed By: #### L 100.0100, L500.4050, L501.2450 ####[facility] [address] [place], [address] Urea nitrogen [Mass/Vol] 10 mg/dL Normal 7-18 [facility] Comment on above: Performed By: #### L 100.0100, L500.4050, L501.2450 ####[facility] [address] [place], [address] ECG COMPLETEon 07-28-2024 ECG COMPLETE Ventricular Rate : 9 7 BPM QRS Duration : 74 ms Q-T Interval : 386 ms QTC Calculation(Bazett) : 490 ms Calculated R [place] : 4 degrees Calculated T [place] : 31 degrees ATRIAL FIBRILLATION NONSPECIFIC T WAVE ABNORMALITY ABNORMAL ECG NO PREVIOUS ECGS AVAILABLE POOR DATA QUALITY, INTERPRETATION MAY BE ADVERSELY AFFECTED Confirmed by KENDALL WHYTE MD ([id number]) on 04/04/2025 11:31:14 PM NAME : AMNA SEQUEIRA PID : [id number] : 1955 Gender : Female Race : ORD : [id number] Procedure Date : Jul 28 2024 22:47:04 Edit Date : Apr 04 2025 23:31:16 Diagnosis: ATRIAL FIBRILLATION NONSPECIFIC T WAVE ABNORMALITY ABNORMAL ECG NO PREVIOUS ECGS AVAILABLE POOR DATA QUALITY, INTERPRETATION MAY BE ADVERSELY AFFECTED Confirmed by KENDALL WHYTE MD ([id number]) on 04/04/2025 11:31:14 PM Test Reason : Chest Pain Location : 4 : [facility] EM Overread By : KENDALL WHYTE MD Edited By : KENDALL WHYTE MD Referred By : , Acquired by : YENNIFER ACOSTA [facility] ED PROV NOTEon 07-28-2024 ED PROV NOTE HNO ID: [id number] Author: BARBARA MEJIA MD Service: Emergency Medicine [...] Transfers: Patient arrives as a transfer from [facility] for bowel perforation. Complains of N/V, WBC 1020 and sytolic pressure in the 90s. Hx of pancreatitis. HPI Pt is a 69-year-old female with past medical history significant for PE/DVTs on Coumadin presenting to the emergency department from [facility] for concerns of necrotizing pancreatitis versus contained [...] COPD (chronic obstructive pulmonary disease) ([facility]) DVT (deep venous thrombosis) ([facility]) 2005 IBS (irritable bowel syndrome) Insomnia RA (rheumatoid arthritis) ([facility]) PAST SURGICAL HISTORY Procedure Laterality [...] (more content not included)... Normal [facility] ED PROV NOTE HNO ID: [id number] Author: BARBARA MEJIA MD Service: Emergency Medicine Author Type: Physician Type: ED Provider Notes Filed: 07/28/2024 23:41 Note Text: Brief HPI: Amna Sequeira is a 69 year old female with a PMH as documented below who presents for evaluation. The patient presents from [facility]. The patient has had abdominal pain ongoing x 1 month. She has had vomiting. She has had increasing pain recently. She was seen at [facility] which she was found to have a possible gastric perforation, pseudocyst, necrotizing pancreatitis. Surgery was consulted at [facility] For further workup and management. The patient was accepted by Dr. Perez with a ER to ER transfer. The patient had a blood work sent at the [facility] in which she has found to have [...] COPD (chronic obstructive pulmonary disease) ([facility]) DVT (deep venous thrombosis) ([facility]) 2005 IBS (irritable bowel syndrome) Insomnia RA (rheumatoid arthritis) ([facility]) Constitutional: Nontoxic, well-appearing without any [...] BARBARA MEJIA 07/28/24 2341 Normal [facility] EKGon 07-28-2024 Electrocardiogram Ventricular Rate : 9 6 BPM Atrial Rate : 96 BPM P-R Interval : 130 ms QRS Duration : 78 ms Q-T Interval : 408 ms QTC Calculation(Bazett) : 515 ms Calculated P [place] : 29 degrees Calculated R [place] : 15 degrees Calculated T [place] : 62 degrees SINUS RHYTHM WITH PREMATURE ATRIAL COMPLEXES NONSPECIFIC T WAVE ABNORMALITY ABNORMAL ECG WHEN COMPARED WITH ECG OF 28-Jul-2024 22:47, SINUS RHYTHM HAS REPLACED ATRIAL FIBRILLATION NONSPECIFIC T WAVE ABNORMALITY NO LONGER EVIDENT IN INFERIOR LEADS Confirmed by KENDALL WHYTE MD ([id number]) on 04/04/2025 11:31:08 PM NAME : AMNA SEQUEIRA PID : [id number] : 1955 Gender : Female Race : [...] INFERIOR LEADS Confirmed by KENDALL WHYTE MD ([id number]) on 04/04/2025 11:31:08 PM Test Reason : Location : : [facility] Overread By : KENDALL WHYTE MD Edited By : KENDALL WHYTE MD Referred By : , Acquired by : YENNIFER ACOSTA Normal [facility] Emergency Department Summary on 07-28-2024 Emergency Department Summary [facility] Medical Records Department [address] [place] [address] Emergency Department Summary 07/28/24 MR#: [id number] Acct: [id number] Name: AMNA SEQUEIRA Rep #: [id number] : 1955 69 From: Toribio Salvador MD [...] Narrative: Af (more content not included)... Normal [facility] HISTORY PHYSICALon HISTORY PHYSICAL HNO ID: [id number] Author: BLAIR PEREZ MD Service: General Surgery [...] and pancreas. Consult to Dr. Ireland from [facility]. Findings reviewed with patient and her family. Blair Perez MD Delayed entry ----- HANDP: Emergency General Surgery Service SERVICE DATE: 07/28/2024 SERVICE TIME: 10:57 PM REASON FOR CONSULT: Gastric perforation versus walled off pancreatic necrosis REQUESTING PHYSICIAN: ED Subjective 69 year old female with PMHx of fibromyalgia, DVTs (on warfarin), hypothyroidism and RA who presents to the ED as a transfer from [place] with symptoms of vomiting x 2 months. [...] COPD (chronic obstructive pulmonary disease) ([facility]) DVT (deep venous thrombosis) ([facility]) 2005 IBS (irritable bowel syndrome) Insomnia RA (rheumatoid arthritis) ([facility]) PAST SURGICAL HISTORY Procedure Laterality [...] (more content not included)... Normal [facility] Lactic Acidon 07-28-2024 Lactate [Moles/Vol] 1.4 mmol/L Normal 0.4-1.9 [facility] Comment on above: Order Comment: Y Performed By: #### L 503.6005 ####[facility] [address] [facility] [place], [place], [id number] Lipaseon 07-28-2024 Lipase [Catalytic activity/Vol] 154 U/L High 13-75 [facility] Comment on above: Result Comment: Britni centeno note: LIPASE revised reference range effective 23. New Lipase methodology. Expected to produce lower values than the previous assay method. NEW Reference Range: 13 - 75 U/L Performed By: #### L 100.0100, L500.4050, L501.2450 ####[facility] [address] [facility] [place], [place], [id number] Lipase Robbiel-Mariely 07-28-20 24 Lipase [Catalytic activity/Vol] 101 U/L High 16-61 [facility] Comment on above: Order Comment: Monika dye Type: BLOOD SPECIMEN Ordering Facility: [facility] Address: [address] [place] [address] Performed By: #### 3 040-3 #### [facility] CLIA [id number] [address] [place] [address] PT panel Coag (PPP)on 2023 INR Coag (PPP) [Relative time] 1.2 {INR} Normal 0.9-1.3 [facility] Comment on above: Order Comment: Monika dye Type: BLOOD SPECIMEN Ordering Facility: [facility] Address: [address] [place] [address] Result Comment: Jayy min K Antagonist (VKA) Therapeutic Range: INR 2 to 3 (Target INR of 2.5) Note: For patients treated with VKA drugs, such as warfarin, the [place] [employer]icians 2012 Guideline recommends [...] Chest 2012, 141:7S-47S Miri RA, et al. [facility] 2017, 70: 252-289 Performed By: #### 1 4979-9 #### [facility] CLIA [id number] [address] [place] [address] STATES OF [facility] PT Coag (PPP) [Time] 13.0 s Normal 9.7-13.0 [facility] Comment on above: Order Comment: Monika dye Type: BLOOD SPECIMEN Ordering Facility: [facility] Address: [address] [place] [address] Performed By: #### 1 4979-9 #### [facility] CLIA [id number] [address] OF [place] TYPE + SCREENon 07-28-2024 ABO A Normal [facility] Comment on above: Order Comment: Speci men Type: BLOOD SPECIMEN Ordering Facility: [facility] Address: [facility] [place] [address] Performed By: #### T SCR #### [facility] CLIA [id number] [address] STATES OF [place] Rh Nom (Bld) Negative Normal [facility] Comment on above: Order Comment: Speci men Type: BLOOD SPECIMEN Ordering Facility: [facility] Address: [address] [place] [address] Performed By: #### T SCR #### [facility] CLIA [id number] [address] STATES OF [facility] TYPE AND SCREEN EXPIRATION 07/31/2024 23:59 Normal [facility] Comment on above: Order Comment: Speci men Type: BLOOD SPECIMEN Ordering Facility: [facility] Address: [address] [place] [address] Performed By: #### T SCR #### [facility] CLIA [id number] [address] [place] Urinalysis, Completeon 07-28 BACTERIA 4+ /hpf Normal None Seen [facility] Comment on above: Order Comment: CLEAN CATCH Performed By: #### L 400.0001 ####[facility] [address] [place], [place], [address] EPI,SQUAMOUS 5-10 SEEN Normal 5-10 [facility] Comment on above: Order Comment: CLEAN CATCH Performed By: #### L 400.0001 ####[facility] [address] [place], [address] Mucus Ql (Urine sed) 1+ /hpf Normal [facility] Comment on above: Order Comment: CLEAN CATCH Performed By: #### L 400.0001 ####[facility] [address] [place], [address] WBC 50-100 SEEN Normal 0-5 [facility] Comment on above: Order Comment: CLEAN CATCH Performed By: #### L 400.0001 ####[facility] [address] [place], [address] BILIRUBIN URINE Negative Normal Negative [facility] Comment on above: Order Comment: CLEAN CATCH Performed By: #### L 400.0001 ####[facility] [address] [place], [address] Clarity (U) Sl. Cloudy Normal Clear [facility] Comment on above: Order Comment: CLEAN CATCH Performed By: #### L 400.0001 ####[facility] [address] [place] [id number] Color (U) Yellow Normal Yellow [facility] Comment on above: Order Comment: CLEAN CATCH Performed By: #### L 400.0001 ####[facility] [address] [place], [address] GLUCOSE, UR Normal Normal Normal [facility] Comment on above: Order Comment: CLEAN CATCH Performed By: #### L 400.0001 ####[facility] [address] [place], [address] KETONE UR 5 mg/dl Abnormal Negative [facility] Comment on above: Order Comment: CLEAN CATCH Performed By: #### L 400.0001 ####[facility] [address] [place], [address] LEUK ESTERASE 100 /ul Abnormal Negative [facility] Comment on above: Order Comment: CLEAN CATCH Performed By: #### L 400.0001 ####[facility] [address] [place], [address] Nitrite Ql (U) Positive Abnormal Negative [facility] Comment on above: Order Comment: CLEAN CATCH Performed By: #### L 400.0001 ####[facility] [address] [place], [address] OCCULT BLOOD-UR 10 /ul Abnormal Negative [facility] Comment on above: Order Comment: CLEAN CATCH Performed By: #### L 400.0001 ####[facility] [address] [place], [address] pH UR 6.5 Normal 5.0 - 8.0 [facility] Comment on above: Order Comment: CLEAN CATCH Performed By: #### L 400.0001 ####[facility] [address] [place], [address] PROT DIPSTX 30 mg/dl Abnormal Negative [facility] Comment on above: Order Comment: CLEAN CATCH Performed By: #### L 400.0001 ####[facility] [address] [place], [address] SP.GR. DIPSTX 1.010 Normal 1.002-1.03 0 [facility] Comment on above: Order Comment: CLEAN CATCH Performed By: #### L 400.0001 ####[facility] [address] [place], [address] UROBILI 1 mg/dl Abnormal Normal [facility] Comment on above: Order Comment: CLEAN CATCH Performed By: #### L 400.0001 ####[facility] [address] [place], [address] RBC 0 SEEN Normal 0-5 [facility] Comment on above: Order Comment: CLEAN CATCH Performed By: #### L 400.0001 ####[facility] [address] [place], [address] CT ABDOMEN/PELVIS Won 2023 CT ABDOMEN/PELVIS [address] [address] Patient: AMNA SEQUEIRA Phone#: : 1955 Age: 69 Gender: F Pt. Type: Out Account: [id number] Location: 052 Ordering: GALINDO GUTIERREZ Exam Date: 07/09/2024/13:22 Family Phys: Charge Code: [id number] Physician: Merrick Order #: [id number] Dose#: PROCEDURE: CT ABDOMEN/PELVIS WITH CONTRAST COMPARISON: [facility], CT, CHEST PE W CON, 06/28/2022, [...] 69 Gender: F Pt. Type: Out Account: [id number] Location: 052 Ordering: GALINDO GUTIERREZ Exam Date: 07/09/2024/13:22 Family Phys: Charge Code: [id number] Physician: Merrick Order #: [id number] Dose#: BONES: Severe degenerative changes of the [...] Marc MD on 07/09/2024 at 15:17 Normal [facility] AMYLASEon 07-03-2024 Amylase [Catalytic activity/Vol] 63 U/L Normal 21-101 [facility] Comment on above: Performed By: #### 1 0231, 7199 #### [facility] [place] [address] Tile Grinder: Brauloi Roach MD CBC (INCLUDES DIFF/PLT)on Basophils (Bld) [#/Vol] 0.097 10*3/uL Normal 0-200 [facility] Comment on above: Performed By: #### 1 0231, 6866 #### [facility] [address], [address] [place] [address] Tile Grinder: Braulio Roach MD Basophils/100 WBC (Bld) 0.6 % Normal [facility] Comment on above: Performed By: #### 1 0231, 1807 #### [facility] [place] [address] Tile Grinder: Braulio Roach MD Eosinophils (Bld) [#/Vol] 0.032 10*3/uL Normal 15-500 [facility] Comment on above: Performed By: #### 1 0231, 6399 #### [facility] of [address], [address] [place] [address] Tile Grinder: Barulio Roach MD Eosinophils/100 WBC (Bld) 0.2 % Normal [facility] Comment on above: Performed By: #### 1 0231, 6399 #### [facility] of [address], [address] [place] [address] Tile Grinder: Braulio Roach MD Erythrocyte distribution width (RBC) [Ratio] 20.6 % High 11.0-15.0 [facility] Comment on above: Performed By: #### 1 0231, 6399 #### [facility] of [address], [address] [place] [address] Tile Grinder: Braulio Roach MD Hematocrit (Bld) [Volume fraction] 39.4 % Normal 35.0-45.0 [facility] Comment on above: Performed By: #### 1 0231, 6399 #### [facility] of [address], [address] [place] [address] Tile Grinder: Braulio Roach MD Hemoglobin (Bld) [Mass/Vol] 11.4 g/dL Low 11.7-15.5 [facility] Comment on above: Performed By: #### 1 0231, 6399 #### [facility] of [address], [address] [place] [address] Tile Grinder: Braulio Roach MD Lymphocytes (Bld) [#/Vol] 0.713 10*3/uL Low 850-3900 [facility] Comment on above: Performed By: #### 1 0231, 6399 #### [facility] of [address], [address] [place] [address] Tile Grinder: Braulio Roach MD Lymphocytes/100 WBC (Bld) 4.4 % Normal [facility] Comment on above: Performed By: #### 1 0231, 6399 #### [facility] of [address], [address] [place] [address] Tile Grinder: Braulio Roach MD MCH (RBC) [Entitic mass] 22.6 pg Low 27.0-33.0 [facility] Comment on above: Performed By: #### 1 0231, 6399 #### [facility] of [place] [address] Tile Grinder: Braulio Roach MD MCHC (RBC) [Mass/Vol] 28.9 g/dL Low 32.0-36.[address] [facility] Comment on above: Performed By: #### 1 023, 6399 #### [facility] of [place] [address] Tile Grinder: Braulio Roach MD MCV (RBC) [Entitic vol] 78.2 fL Low 80.0-100.0 [facility] Comment on above: Performed By: #### 1 230, 6399 #### [facility] of [place] [address] Tile Grinder: Braulio Roach MD Monocytes (Bld) [#/Vol] 0.454 10*3/uL Normal 200-950 [facility] Comment on above: Performed By: #### 1 0231, 6399 #### [facility] of [place] [place] [address] Tile Grinder: Braulio Roach MD Monocytes/100 WBC (Bld) 2.8 % Normal [facility] Comment on above: Performed By: #### 1 023, 6399 #### [facility] of [place] [address] T[employer] Grinder: Braulio Roach MD Neutrophils (Bld) [#/Vol] 14.904 10*3/uL High 4487-6353 [facility] Comment on above: Performed By: #### 1 0231, 6399 #### [facility] of [place] [address] Tile Grinder: Braulio Roach MD Neutrophils/100 WBC (Bld) 92 % Normal [facility] Comment on above: Performed By: #### 1 0231, 6399 #### [facility] of [address], [address] [place] [address] Tile Grinder: Braulio Roach MD Platelet mean volume (Bld) [Entitic vol] 9.2 fL Normal 7.5-12.5 [facility] Comment on above: Performed By: #### 1 0231, 6399 #### [facility] of [address], [address] [place] [address] Tile Grinder: Braulio Roach MD Platelets (Bld) [#/Vol] 754 10*3/uL High 140-400 [facility] Comment on above: Performed By: #### 1 0231, 6399 #### [facility] of [address], [address] [place] [address] Tile Grinder: Braulio Roach MD RBC (Bld) [#/Vol] 5.04 10*6/uL Normal 3.80-5.10 [facility] Comment on above: Performed By: #### 1 0231, 6399 #### [facility] of [address], [address] [place] [address] Tile Grinder: Braulio Roach MD WBC (Bld) [#/Vol] 16.2 10*3/uL High 3.8-10.8 [facility] Comment on above: Performed By: #### 1 0231, 6399 #### [facility] of [place] [address] Tile Grinder: Braulio Roach MD [facility] [place] 07-03-2024 Albumin [Mass/Vol] 3.2 g/dL Low 3.6-5.1 [facility] Comment on above: Performed By: #### 1 0231, 6399 #### [facility] of [place] [address] Tile Grinder: Braulio Roach MD Albumin/Globulin [Mass ratio] 0.8 {ratio} Low 1.0-2.5 [facility] Comment on above: Performed By: #### 1 0231, 6399 #### [facility] of [address], [address] [place] [address] Tile Grinder: Braulio Roach MD ALP [Catalytic activity/Vol] 88 U/L Normal 37-153 [facility] Comment on above: Performed By: #### 1 0231, 6399 #### [facility] of [address], [address] [place] [address] Tile Grinder: Braulio Roach MD ALT [Catalytic activity/Vol] 10 U/L Normal 6-29 [facility] Comment on above: Performed By: #### 1 0231, 6399 #### [facility] of [address], [address] [place] [address] Tile Grinder: Braulio Roach MD AST [Catalytic activity/Vol] 13 U/L Normal 10-35 [facility] Comment on above: Performed By: #### 1 0231, 6399 #### [facility] of [address], [address] [place] [address] Tile Grinder: Braulio Roach MD Bilirubin [Mass/Vol] 0.2 mg/dL Normal 0.2-1.2 [facility] Comment on above: Performed By: #### 1 0231, 6399 #### [facility] of [place] [address] Tile Grinder: Braulio Roach MD Calcium [Mass/Vol] 9.0 mg/dL Normal 8.6-10.4 [facility] Comment on above: Performed By: #### 1 0231, 6399 #### [facility] of [place] [address] Tile Grinder: Braulio Roach MD Chloride [Moles/Vol] 103 mmol/L Normal 98-110 [facility] Comment on above: Performed By: #### 1 0231, 6399 #### [facility] of [place] [address] Tile Grinder: Braulio Roach MD CO2 [Moles/Vol] 15 mmol/L Low 20-32 [facility] Comment on above: Result Comment: Angelica ection tube is incompletely filled. CO2 result may be decreased. Performed By: #### 1 0231, 6399 #### [facility] [address], [address] [place] [address] Tile Grinder: Braulio Roach MD Creatinine [Mass/Vol] 1.08 mg/dL High 0.50-1.[address] [facility] Comment on above: Performed By: #### 1 0231, 6399 #### [facility] [address], [address] [place] [address] Tile Grinder: Braulio Roach MD GFR/1.73 sq M.predicted among non-blacks MDRD (S/P/Bld) [Vol rate/Area] 56 mL/min/{1.73_m2} Low > OR = 60 [facility] Comment on above: Performed By: #### 1 0231, 6399 #### [facility] [address], [address] [place] [address] Tile Grinder: Braulio Roach MD Globulin (S) [Mass/Vol] 4.2 g/dL High 1.9-3.7 [facility] Comment on above: Performed By: #### 1 0231, 6399 #### [facility] [place] [address] Tile Grinder: Braulio Roach MD Glucose [Mass/Vol] 108 mg/dL High 65-99 [facility] Comment on above: Result Comment: Fasting reference interval For someone without known diabetes, a glucose value between 100 and 125 mg/dL is consistent with prediabetes and should be confirmed with a follow-up test. Performed By: #### 1 0231, 6399 #### [facility] [address], [address] [place] [address] Tile Grinder: Braulio Roach MD Potassium [Moles/Vol] 3.6 mmol/L Normal 3.5-5.[address] [facility] Comment on above: Performed By: #### 1 0231, 6399 #### [facility] [place] [address] Tile Grinder: Braulio Roach MD Protein [Mass/Vol] 7.4 g/dL Normal 6.1-8.1 [facility] Comment on above: Performed By: #### 1 0231, 6399 #### [facility] of [address], [address] [place] [address] Tile Grinder: Braulio Roach MD Sodium [Moles/Vol] 135 mmol/L Normal 135-146 [facility] Comment on above: Performed By: #### 1 0231, 6399 #### [facility] of [address], [address] [place] [address] Tile Grinder: Braulio Roach MD Urea nitrogen [Mass/Vol] 15 mg/dL Normal 7-25 [facility] Comment on above: Performed By: #### 1 0231, 6399 #### [facility] [address], [address] [place] [address] Tile Grinder: Braulio Roach MD Urea nitrogen/Creatinine [Mass ratio] 14 mg/mg Normal 6-22 [facility] Comment on above: Performed By: #### 1 0231, 6399 #### [facility] of [place] [address] Tile Grinder: Braulio Roach MD ABDOMEN 2 VIEWSon 07-02-2024 ABDOMEN 2 VIEWS [place] [address] Patient: AMNA SEQUEIRA Phone#: : 1955 Age: 69 Gender: F Pt. Type: Out Account: [id number] Location: [facility] Ordering: GALINDO GUTIERREZ Exam Date: 07/02/2024/15:08 Family Phys: Charge Code: 642665 Physician: Merrick Order #: [id number] Dose#: CORRECTION Corrected incomplete sentence. Corrected on: [...] Marc MD on 07/08/2024 at 10:05 Normal [facility] PT/INR DAILY PATIENT ON COUM ADINon 05-26-2024 INR Coag (PPP) [Relative time] 5.1 {INR} Critically high 0.8 - 1.2 [facility] Comment on above: Result Comment: { CA [...] [facility] Performed By: #### 2 42390 #### [facility],[address] [place] [address] PT-COUMADIN 54.7 sec High 9.3 - 14.1 [facility] Comment on above: Performed By: #### 2 74292 #### [facility],[address] [place], [place] [address] CULTURE BLOODon 09-29-2023 Bacteria identified Cx Nom (Bld) NO GROWTH OBSERVED AFTER 5 DAYS Normal [facility] Comment on above: Performed By: #### 2 524-7 #### [facility] [address] [place] [address] Tile Grinder - [place] SKINNER [id number] URINE OXYCODONE CONFIRMATION RANDOMon 09-28-2023 Oxycodone Negative Normal Qtpgzp=847 [facility] Comment on above: Performed By: #### 2 4336-0 #### [facility] [address] [place] [address] Tile Grinder - [place] HARTMANIA [id number] Performed for [facility] [address] [place] [address] Oxycodone/Oxymorphone Confirm Positive Abnormal Nxycbq=781 [facility] Comment on above: Result Comment: Test includes Oxycodone and Oxymorphone Performed By: #### 2 4336-0 #### [facility] [address] [place] [address] Tile Grinder - [place] [employer] [id number] Performed for [facility] [address] [place] [address] Oxymorphone Positive Abnormal [facility] Comment on above: Performed By: #### 2 4336-0 #### [facility] [address] [place] [address] Tile Grinder - [place] Maldonado MINNIEIA [id number] Performed for [facility] [address] [place] [address] Oxymorphone Confirm 171 ng/mL Normal Olywnl=813 [facility] Comment on above: Result Comment: Oxym orphone detected; this finding is consistent with use of medications that include Numorphan, Opana, or drugs containing Oxycodone, or generic formulations. Drugs listed are employer relations representative of common sources of the compound detected and are not intended to include all possible sources. Performed By: #### 2 4336-0 #### [facility] [address] [place] [address] Tile Grinder - [place] [facility] [id number] Performed for [facility] [address] [place] [address] Please Note: Comment Normal [facility] Comment on above: Result Comment: Drug -test results should be interpreted in the context of clinical information. Patient metabolic variables, specific drug chemistry, and specimen characteristics can affect test outcome. Technical consultation is available if a test result is inconsistent with an expected outcome. ([email or web address] or call toll-free [phone]) . Drug brands, if listed herein, are trademarks of their respective owners. Performed By: #### 2 4336-0 #### [facility] [address] [place] [address] Tile Grinder - [place] HART[place] [id number] Performed for [facility] [address] [place] [address] Basic metabolic 2000 panelon 09-25-2023 Anion gap [Moles/Vol] 5.0 mmol/L Normal <=15.0 [facility] Comment on above: Performed By: #### 1 9123-9, LIPASE, 16062-7 #### [facility] [address] [place] [address] Tile Grinder - [place] SKINNER [id number] Calcium [Mass/Vol] 7.2 mg/dL Low 8.5-10.1 [facility] Comment on above: Performed By: #### 1 9123-9, LIPASE, 17704-8 #### [facility] [address] [place] [address] [employer]ile Grinder - [place] [id number] Chloride [Moles/Vol] 110 mmol/L High 98-107 [facility] Comment on above: Performed By: #### 1 9123-9, LIPASE, 38594-5 #### [facility] [address] [place] [address] Tile Grinder - [place] [id number] CO2 [Moles/Vol] 24 mmol/L Normal 21-32 [facility] Comment on above: Performed By: #### 1 9123-9, LIPASE, 59127-3 #### [facility] [address] [place] [address] [employer]ile Grinder - [place]ART[place] [id number] Creatinine [Mass/Vol] 0.64 mg/dL Normal 0.51-0.95 [facility] Comment on above: Performed By: #### 1 9123-9, LIPASE, 20292-0 #### [facility] [address] [place] [address] Tile Grinder - [facility] [id number] GFR/1.73 sq M.predicted MDRD (S/P/Bld) [Vol rate/Area] mL/min/{1.73_m2} Normal >=59 [facility] Comment on above: Performed By: #### 1 23-9, LIPASE, 12989-8 #### [facility] [address] [place] [address] Tile Grinder - [facility] SUSANNE [id number] Glucose [Mass/Vol] 81 mg/dL Normal 74-106 [facility] Comment on above: Performed By: #### 1 23-9, LIPASE, 59128-4 #### [facility] [address] [place] [address] Tile Grinder - [facility] [id number] HGFR GLOMERULAR FILTRATIO N RATE INTERPRETATION~The eGFR [...] months, with or without kidney damage.~ Normal [facility] Comment on above: Performed By: #### 1 23-9, LIPASE, 26900-9 #### [facility] [address] [place] [address] Tile Grinder - [facility] SUSANNE [id number] Potassium [Moles/Vol] 3.4 mmol/L Low 3.5-5.1 [facility] Comment on above: Performed By: #### 1 23-9, LIPASE, 98562-7 #### [facility] [address] [place] [address] Tile Grinder - [place] [id number] Sodium [Moles/Vol] 139 mmol/L Normal 136-145 [facility] Comment on above: Performed By: #### 1 9123-9, LIPASE, 60894-9 #### [facility] [address] [place] [address] Tile Grinder - [place] [id number] Urea nitrogen [Mass/Vol] 5 mg/dL Low - [facility] Comment on above: Performed By: #### 1 9123-9, LIPASE, 06341-6 #### [facility] [address] [place] [address] Tile Grinder - [place] [id number] CBC W Auto Differential pane l (Bld)on 09-25-2023 Basophils (Bld) [#/Vol] 0.06 10*3/uL Normal <=0.70 [facility] Comment on above: Performed By: #### 2 524-7 #### [place] [address] [place] [address] Tile Grinder - [place] [id number] Basophils/100 WBC (Bld) 0.7 % Normal <=2.0 [facility] Comment on above: Performed By: #### 2 524-7 #### [facility] [address] [place] [address] Tile Grinder - [place] [id number] Eosinophils (Bld) [#/Vol] 0.16 10*3/uL Normal <=0.70 [facility] Comment on above: Performed By: #### 2 524-7 #### [facility] [address] [place] [address] Tile Grinder - [place] [id number] Eosinophils/100 WBC (Bld) 1.8 % Normal <=10.0 [facility] Comment on above: Performed By: #### 2 524-7 #### [facility] [address] [place] [address] Tile Grinder - [place]ARTMAN[place] [id number] Erythrocyte distribution width (RBC) [Entitic vol] 51.8 fL High 36.4-46.3 [facility] Comment on above: Performed By: #### 2 524-7 #### [place] [address] Tile Grinder - [place] HARTMANIA [id number] Hematocrit (Bld) [Volume fraction] 32.7 % Low 37.0-47.0 [facility] Comment on above: Performed By: #### 2 524-7 #### [place] [address] Tile Grinder - [place]ART[place] [id number] Hemoglobin (Bld) [Mass/Vol] 9.9 g/dL Low 12.0-16.0 [facility] Comment on above: Performed By: #### 2 524-7 #### [place] [address] Tile Grinder - [place] Maldonado CLIA [id number] Immature granulocytes (Bld) [#/Vol] 0.05 10*3/uL Normal <=0.10 [facility] Comment on above: Performed By: #### 2 524-7 #### [place] [address] Tile Grinder - [place] Maldonado CLIA [id number] Immature granulocytes/100 WBC (Bld) 0.60 % Normal <=1.50 [facility] Comment on above: Performed By: #### 2 524-7 #### [place] [address] Tile Grinder - [place] Maldonado CLIA [id number] Lymphocytes (Bld) [#/Vol] 1.78 10*3/uL Normal 1.20-3.40 [facility] Comment on above: Performed By: #### 2 524-7 #### [place] [address] Tile Grinder - [place] Maldonado CLIA [id number] Lymphocytes/100 WBC (Bld) 19.7 % Low 20.0-40.0 [facility] Comment on above: Performed By: #### 2 524-7 #### [place] [address] [facility] [place] [address] Tile Grinder - [place] [employer]NER [id number] MCH (RBC) [Entitic mass] 22.1 pg Low 27.0-31.0 [facility] Comment on above: Performed By: #### 2 524-7 #### [address] [place] [address] Tile Grinder - [place] [employer]NER [id number] MCHC (RBC) [Mass/Vol] 30.3 g/dL Low 32.0-36.0 [facility] Comment on above: Performed By: #### 2 524-7 #### [place] [address] Tile Grinder - [place] [employer]NER [id number] MCV (RBC) [Entitic vol] 73.0 fL Low 80.0-100.0 [facility] Comment on above: Performed By: #### 2 524-7 #### [place] [address] T[employer] Grinder - [place]ART[place] [id number] Monocytes (Bld) [#/Vol] 0.66 10*3/uL High 0.10-0.60 [facility] Comment on above: Performed By: #### 2 524-7 #### [place] [address] T[employer] Grinder - [place]ARTMAN[place] [id number] Monocytes/100 WBC (Bld) 7.3 % Normal <=8.0 [facility] Comment on above: Performed By: #### 2 524-7 #### [place] [address] [employer] Grinder - [place] [id number] Neutrophils (Bld) [#/Vol] 6.31 10*3/uL Normal 1.40-6.50 [facility] Comment on above: Performed By: #### 2 524-7 #### [facility] [address] [place] [address] [employer]ile Grinder - [place]ARTMANIA [id number] Neutrophils/100 WBC (Bld) 69.9 % Normal 50.0-70.0 [facility] Comment on above: Performed By: #### 2 524-7 #### [facility] [address] [place] [address] Tile Grinder - [place]ART[place]IA [id number] Nucleated RBC (Bld) [#/Vol] 0.00 10*3/uL Normal <=0.10 [facility] Comment on above: Performed By: #### 2 524-7 #### [address] [place] [address] Tile Grinder - [place] [id number] Platelet mean volume (Bld) [Entitic vol] 8.5 fL Low 9.0-13.0 [facility] Comment on above: Performed By: #### 2 524-7 #### [facility] [address] [place] [address] Tile Grinder - [place]ART[place] [id number] Platelets (Bld) [#/Vol] 395 10*3/uL Normal 130-400 [facility] Comment on above: Performed By: #### 2 524-7 #### [place] [address] [place] [address] [employer]ile Grinder - [place] HARTMANIA [id number] RBC (Bld) [#/Vol] 4.48 10*6/uL Normal 4.00-6.30 [facility] Comment on above: Performed By: #### 2 524-7 #### [facility] [address] [place] [address] [employer]ile Grinder - [place] [id number] WBC (Bld) [#/Vol] 9.02 10*3/uL Normal 4.80-10.80 [facility] Comment on above: Performed By: #### 2 524-7 #### [address] [facility] [place] [address] [employer]inder - [place] HARTMANIA [id number] Hepatic function 2000 panelo n 09-25-2023 Albumin [Mass/Vol] 2.4 g/dL Low 3.4-5.0 [facility] Comment on above: Performed By: #### 1 9123-9, LIPASE, 76738-8 #### [facility] [address] [place] [address] Tile Grinder - [place] [id number] Albumin/Globulin [Mass ratio] 0.6 {ratio} Low 1.0-2.2 [facility] Comment on above: Performed By: #### 1 9123-9, LIPASE, 02483-3 #### [facility] [address] [place] [address] [employer]ile Grinder - [place] [id number] ALP [Catalytic activity/Vol] 82 U/L Normal 50-136 [facility] Comment on above: Performed By: #### 1 9123-9, LIPASE, 98850-2 #### [facility] [address] [place] [address] Tile Grinder - [place] Maldonado CLIA [id number] ALT [Catalytic activity/Vol] 24 U/L Normal 14-59 [facility] Comment on above: Performed By: #### 1 9123-9, LIPASE, 54176-3 #### [facility] [address] [place] [address] Tile Grinder - [place] Maldonado CLIA [id number] AST [Catalytic activity/Vol] 25 U/L Normal 15-37 [facility] Comment on above: Performed By: #### 1 9123-9, LIPASE, 01494-6 #### [facility] [address] [place] [address] [employer]ile Grinder - [place] [id number] Bilirubin [Mass/Vol] 0.5 mg/dL Normal 0.2-1.0 [facility] Comment on above: Performed By: #### 1 9123-9, LIPASE, 34026-9 #### [facility] [address] [place] [address] [employer]ile Grinder - [place]NER [id number] Bilirubin.conjugated [Mass/Vol] 0.2 mg/dL Normal <=0.2 [facility] Comment on above: Performed By: #### 1 9123-9, LIPASE, 98430-5 #### [facility] [address] [place] [address] [employer]ile Grinder - [place] [id number] Globulin (S) [Mass/Vol] 3.9 g/dL High 2.4-3.8 [facility] Comment on above: Performed By: #### 1 23-9, LIPASE, 92234-2 #### [place] [address] [place] [address] [employer]ile Grinder - [place]NER [id number] Protein [Mass/Vol] 6.3 g/dL Low 6.4-8.2 [facility] Comment on above: Performed By: #### 1 9123-9, LIPASE, 72197-9 #### [facility] [address] [place] [address] [employer]ile Grinder - [place] [id number] MAGNESIUMon 09-25-2023 Magnesium [Mass/Vol] 2.0 mg/dL Normal 1.6-2.6 [facility] Comment on above: Performed By: #### 1 9123-9, LIPASE, 36862-2 #### [place] [address] [place] [address] [employer]inder - [place] [id number] PHOSPHORUSon 09-25-2023 Phosphate [Mass/Vol] 2.3 mg/dL Low 2.5-4.9 [facility] Comment on above: Performed By: #### 1 9123-9, LIPASE, 78680-7 #### [facility] [address] [place] [address] [employer] Grinder - [place] [employer] [id number] PT Coag (PPP) [Time]on 09-25 HPTINR INR REFERENCE RANGE INTERPRETATION Patients on Coumadin 2.0 - 3.0 Patients with mechanical heart valves 2.5 - 3.5 Normal [facility] Comment on above: Performed By: #### 2 524-7 #### [place] [address] [place] [address] [employer]inder - [place] [employer] [id number] INR Coag (PPP) [Relative time] 3.4 {INR} High 0.8-1.1 [facility] Comment on above: Performed By: #### 2 524-7 #### [address] [place] [address] [employer]inder - [place] [employer] [id number] PT with INRon 09-25-2023 PT Coag (PPP) [Time] 32.5 s High 9.3-11.5 [facility] Comment on above: Performed By: #### 2 524-7 #### [address] [place] [address] [employer]inder - [place]NER [id number] 25-hydroxyvitamin D [Mass/Vo l]on 09-24-2023 25-hydroxyvitamin D3 [Mass/Vol] 32.1 ng/mL Normal 30.0-100.0 [facility] Comment on above: Performed By: #### 1 9123-9, LIPASE, 24952-1 #### [address] [place] [address] [employer]ile [employer]inder - [place] [id number] HVITD VITAMIN D INTERPRETA TION VITAMIN D STATUS RANGE DEFICIENCY <20 ng/mL INSUFFICIENCY 20-30 ng/mL SUFFICIENCY 30-100 ng/mL TOXICITY >100 ng/mL Normal [facility] Comment on above: Performed By: #### 1 9123-9, LIPASE, 78342-3 #### [address] [place] [address] [employer]ile [employer]inder - [place] [id number] ABDOMEN KUB PORTABLEon 09-24 ABDOMEN KUB PORTABLE [...] pattern without evidence of bowel obstruction. Normal [facility] Basic metabolic 2000 panelon 09-24-2023 Anion gap [Moles/Vol] 4.0 mmol/L Normal <=15.0 [facility] Comment on above: Performed By: #### 2 4336-0 #### [facility] [address] [place] [address] [employer] - [place] [id number] Performed for [facility] [address] [place] [address] Calcium [Mass/Vol] 7.9 mg/dL Low 8.5-10.1 [facility] Comment on above: Performed By: #### 2 4336-0 #### [facility] [address] [place] [address] [employer] - [place] [id number] Performed for [facility] [address] [place] [address] Chloride [Moles/Vol] 111 mmol/L High 98-107 [facility] Comment on above: Performed By: #### 2 4336-0 #### [facility] [address] [place] [address] [employer] - [place] [id number] Performed for [facility] [address] [place] [address] CO2 [Moles/Vol] 27 mmol/L Normal 21-32 [facility] Comment on above: Performed By: #### 2 4336-0 #### [facility] [address] [place] [address] [employer] - [place] [id number] Performed for [facility] [address] [place], [place] [address] Creatinine [Mass/Vol] 0.70 mg/dL Normal 0.51-0.95 [facility] Comment on above: Performed By: #### 2 4336-0 #### [facility] [address] [place] [address] [employer] - [place] [employer] [id number] Performed for [facility] [address] [place], [place] [address] GFR/1.73 sq M.predicted MDRD (S/P/Bld) [Vol rate/Area] mL/min/{1.73_m2} Normal >=59 [facility] Comment on above: Performed By: #### 2 4336-0 #### [facility] [address] [place] [address] [employer] - [place] [employer] [id number] Performed for [facility] [address] [place], [place] [address] Glucose [Mass/Vol] 101 mg/dL Normal 74-106 [facility] Comment on above: Performed By: #### 2 4336-0 #### [facility] [address] [place] [address] [employer] - [place] [employer] [id number] Performed for [facility] [address] [place], [place] [address] HGFR GLOMERULAR FILTRATIO N RATE INTERPRETATION~The eGFR [...] months, with or without kidney damage.~ Normal [facility] Comment on above: Performed By: #### 2 4336-0 #### [facility] [address] [place], [place] [address] [employer] - [place] [id number] Performed for [facility] [facility] [address] [place], [place] [address] Potassium [Moles/Vol] 3.3 mmol/L Low 3.5-5.1 [facility] Comment on above: Performed By: #### 2 4336-0 #### [facility] [address] [place] [address] [employer] [place] [id number] Performed for [facility] [address] [place], [place] [address] Sodium [Moles/Vol] 142 mmol/L Normal 136-145 [facility] Comment on above: Performed By: #### 2 4336-0 #### [facility] [address] [place] [address] [employer] [place] [employer] [id number] Performed for [facility] [address] [place], [place] [address] Urea nitrogen [Mass/Vol] 9 mg/dL Normal 7-17 [facility] Comment on above: Performed By: #### 2 4336-0 #### [facility] [address] [place], [place] [address] [employer] [place] [employer] [id number] Performed for [facility] [address] [place], [place] [address] CBC W Auto Differential pane l (Bld)on 09-24-2023 Basophils (Bld) [#/Vol] 0.08 10*3/uL Normal <=0.70 [facility] Comment on above: Performed By: #### 2 4336-0 #### [facility] [address] [place], [place] [address] [employer] [place] [employer] [id number] Performed for [facility] [address] [place], [place] [address] Basophils/100 WBC (Bld) 0.8 % Normal <=2.0 [facility] Comment on above: Performed By: #### 2 4336-0 #### [facility] [address] [place], [place] [address] [employer] [place] [employer] [id number] Performed for [facility] [address] [place], [place] [address] Eosinophils (Bld) [#/Vol] 0.11 10*3/uL Normal <=0.70 [facility] Comment on above: Performed By: #### 2 4336-0 #### [facility] [address] [place] [address] [employer] [place] [employer] [id number] Performed for [facility] [address] [place], [place] [address] Eosinophils/100 WBC (Bld) 1.1 % Normal <=10.0 [facility] Comment on above: Performed By: #### 2 4336-0 #### [facility] [address] [place] [address] [employer] [place] [employer] [id number] Performed for [facility] [address] [place], [place] [address] Erythrocyte distribution width (RBC) [Entitic vol] 51.8 fL High 36.4-46.3 [facility] Comment on above: Performed By: #### 2 4336-0 #### [facility] [address] [place] [address] [employer] [place] [employer] [id number] Performed for [facility] [address] [place], [place] [address] Hematocrit (Bld) [Volume fraction] 36.4 % Low 37.0-47.0 [facility] Comment on above: Performed By: #### 2 4336-0 #### [facility] [address] [place], [place] [address] [employer] [place] [employer] [id number] Performed for [facility] [address] [place], [place] [address] Hemoglobin (Bld) [Mass/Vol] 11.2 g/dL Low 12.0-16.0 [facility] Comment on above: Performed By: #### 2 4336-0 #### [facility] [address] [place] [address] [employer] [place] [employer] [id number] Performed for [facility] [address] [place], [place] [address] Immature granulocytes (Bld) [#/Vol] 0.06 10*3/uL Normal <=0.10 [facility] Comment on above: Performed By: #### 2 4336-0 #### [facility] [address] [place] [address] [employer] [place] [employer] [id number] Performed for [place] [address] [address] Immature granulocytes/100 WBC (Bld) 0.60 % Normal <=1.50 [facility] Comment on above: Performed By: #### 2 4336-0 #### [place] [address] [place] [address] [employer] [place] [employer] [id number] Performed for [place] [address] [place] [address] Lymphocytes (Bld) [#/Vol] 1.52 10*3/uL Normal 1.20-3.40 [facility] Comment on above: Performed By: #### 2 4336-0 #### [place] [address] [place] [address] [employer] [place] [id number] Performed for [place] [address] [place], [place] [address] Lymphocytes/100 WBC (Bld) 15.3 % Low 20.0-40.0 [facility] Comment on above: Performed By: #### 2 4336-0 #### [facility] [address] [place] [address] [employer] [place] [employer] [id number] Performed for [place] [address] [place] [address] MCH (RBC) [Entitic mass] 22.4 pg Low 27.0-31.0 [facility] Comment on above: Performed By: #### 2 4336-0 #### [facility] [address] [place] [address] [employer] [place] [employer] [id number] Performed for [facility] [address] [place], [place] [address] MCHC (RBC) [Mass/Vol] 30.8 g/dL Low 32.0-36.0 [facility] Comment on above: Performed By: #### 2 4336-0 #### [place] [address] [place] [address] [employer] [place] [employer] [id number] Performed for [place] [address] [place], [place] [address] MCV (RBC) [Entitic vol] 72.8 fL Low 80.0-100.0 [facility] Comment on above: Performed By: #### 2 4336-0 #### [place] [address] [place] [address] [employer] [place] [employer] [id number] Performed for [place] [address] [place], [place] [address] Monocytes (Bld) [#/Vol] 0.73 10*3/uL High 0.10-0.60 [facility] Comment on above: Performed By: #### 2 4336-0 #### [place] [address] [place] [address] [employer] [place] [employer] [id number] Performed for [place] [address] [address] [place], [place] [address] Monocytes/100 WBC (Bld) 7.3 % Normal <=8.0 [facility] Comment on above: Performed By: #### 2 4336-0 #### [place] [address] [place] [address] [employer] [place] [employer] [id number] Performed for [place] [address] [place], [place] [address] Neutrophils (Bld) [#/Vol] 7.46 10*3/uL High 1.40-6.50 [facility] Comment on above: Performed By: #### 2 4336-0 #### [facility] [address] [place] [address] [employer] [place] [employer] [id number] Performed for [facility] [address] [place], [place] [address] Neutrophils/100 WBC (Bld) 74.9 % High 50.0-70.0 [facility] Comment on above: Performed By: #### 2 4336-0 #### [facility] [address] [place] [address] [employer] [place] [employer] [id number] Performed for [facility] [address] [place], [place] [address] Nucleated RBC (Bld) [#/Vol] 0.00 10*3/uL Normal <=0.10 [facility] Comment on above: Performed By: #### 2 4336-0 #### [place] [address] [place] [address] [employer] [place] [employer] [id number] Performed for [facility] [address] [place], [place] [address] Platelet mean volume (Bld) [Entitic vol] 8.6 fL Low 9.0-13.0 [facility] Comment on above: Performed By: #### 2 4336-0 #### [facility] [address] [place] [address] [employer] [place] [employer] [id number] Performed for [facility] [address] [place], [place] [address] Platelets (Bld) [#/Vol] 404 10*3/uL High 130-400 [facility] Comment on above: Performed By: #### 2 4336-0 #### [facility] [address] [place] [address] [employer] [place] [employer] [id number] Performed for [place] [address] [place], [place] [address] RBC (Bld) [#/Vol] 5.00 10*6/uL Normal 4.00-6.30 [facility] Comment on above: Performed By: #### 2 4336-0 #### [facility] [address] [place] [address] [employer] [place] [employer] [id number] Performed for [facility] [address] [place] [address] WBC (Bld) [#/Vol] 9.96 10*3/uL Normal 4.80-10.80 [facility] Comment on above: Performed By: #### 2 4336-0 #### [facility] [address] [place] [address] [employer] [place] [employer] [id number] Performed for [facility] [address] [place] [address] CORTISOLon 09-24-2023 Cortisol [Mass/Vol] 8.1 ug/dL Normal [facility] Comment on above: Performed By: #### 2 143-6 #### [facility] [address] [place] [address] [employer] [place] [employer] [id number] Cortisol [Mass/Vol]on 2022 [facility] CORTISOL INTERPRETAT ION TIME REFERENCE RANGE 7:00-9:00 AM 4.30-22.40 ug/dL 3:00-5:00 PM 3.09-16.66 ug/dL Normal [facility] Comment on above: Performed By: #### 2 143-6 #### [facility] [address] [place] [address] [employer] [place] [id number] Hepatic function 2000 panelo n 09-24-2023 Albumin [Mass/Vol] 2.8 g/dL Low 3.4-5.0 [facility] Comment on above: Performed By: #### 2 4336-0 #### [facility] [address] [place] [address] [employer] [place] [id number] Performed for [facility] [address] [place] [address] Albumin/Globulin [Mass ratio] 0.6 {ratio} Low 1.0-2.2 [facility] Comment on above: Performed By: #### 2 4336-0 #### [facility] [address] [place], [place] [address] [employer] [place] [employer] [id number] Performed for [facility] [address] [place], [place] [address] ALP [Catalytic activity/Vol] 88 U/L Normal 50-136 [facility] Comment on above: Performed By: #### 2 4336-0 #### [facility] [address] [place], [place] [address] [employer] [place] [id number] Performed for [facility] [address] [place], [place] [address] ALT [Catalytic activity/Vol] 24 U/L Normal 14-59 [facility] Comment on above: Performed By: #### 2 4336-0 #### [facility] [address] [place], [place] [address] [employer] [place] [id number] Performed for [facility] [address] [place], [place] [address] AST [Catalytic activity/Vol] 21 U/L Normal 15-37 [facility] Comment on above: Performed By: #### 2 4336-0 #### [facility] [address] [place], [place] [address] [employer] [place] [employer] [id number] Performed for [facility] [address] [place], [place] [address] Bilirubin [Mass/Vol] 0.4 mg/dL Normal 0.2-1.0 [facility] Comment on above: Performed By: #### 2 4336-0 #### [facility] [address] [place], [place] [address] [employer] [place] [employer] [id number] Performed for [facility] [address] [place], [place] [address] Bilirubin.conjugated [Mass/Vol] 0.1 mg/dL Normal <=0.2 [facility] Comment on above: Performed By: #### 2 4336-0 #### [facility] [address] [place] [address] [employer] [place] [employer] [id number] Performed for [facility] [address] [place], [place] [address] Globulin (S) [Mass/Vol] 4.4 g/dL High 2.4-3.8 [facility] Comment on above: Performed By: #### 2 4336-0 #### [facility] [address] [place] [address] [employer] [place] [employer] [id number] Performed for [facility] [address] [place] [address] Protein [Mass/Vol] 7.2 g/dL Normal 6.4-8.2 [facility] Comment on above: Performed By: #### 2 4336-0 #### [facility] [address] [place] [address] [employer] [place] [employer] [id number] Performed for [facility] [address] [place], [place] [address] LACTATEon 09-24-2023 Lactate [Moles/Vol] 1.5 mmol/L Normal 0.4-2.0 [facility] Comment on above: Performed By: #### 2 524-7 #### [place] [address] [place] [address] [employer] [place] [employer] [id number] PT Coag (PPP) [Time]on 09-24 HPTINR INR REFERENCE RANGE INTERPRETATION Patients on Coumadin 2.0 - 3.0 Patients with mechanical heart valves 2.5 - 3.5 Normal [facility] Comment on above: Performed By: #### 5 902-2 #### [facility] [address] [place] [address] [employer] [place] [employer] [id number] INR Coag (PPP) [Relative time] 2.8 {INR} High 0.8-1.1 [facility] Comment on above: Performed By: #### 5 902-2 #### [place] [address] [place] [address] [employer] [place] [employer] [id number] PT with INRon 09-24-2023 PT Coag (PPP) [Time] 27.3 s High 9.3-11.5 [facility] Comment on above: Performed By: #### 5 902-2 #### [facility] [address] [place] [address] [employer] [place] [employer] [id number] URINALYSIS with reflex to CU LTUREon 09-24-2023 Bacteria LM Ql (Urine sed) Negative Normal TRACE [facility] Comment on above: Performed By: #### 2 4336-0 #### [facility] [address] [place] [address] [employer] [place] [employer] [id number] Performed for [facility] [address] [place], [place] [address] Bilirubin (U) [Mass/Vol] Negative Normal NEGATIVE [facility] Comment on above: Performed By: #### 2 4336-0 #### [facility] [address] [place] [address] [employer] [place] [employer] [id number] Performed for [facility] [address] [place], [place] [address] Clarity (U) CLOUDY Abnormal CLEAR [facility] Comment on above: Performed By: #### 2 4336-0 #### [facility] [address] [place] [address] [employer] [place] [employer] [id number] Performed for [facility] [address] [place], [place] [address] Color (U) YELLOW Normal YELLOW [facility] Comment on above: Performed By: #### 2 4336-0 #### [facility] [address] [place] [address] [employer] [place] [employer] [id number] Performed for [facility] [address] [place], [place] [address] Glucose Test strip (U) [Mass/Vol] Negative Normal NEGATIVE [facility] Comment on above: Performed By: #### 2 4336-0 #### [facility] [address] [place], [place] [address] [employer] [place] [employer] [id number] Performed for [facility] [address] [place], [place] [address] HMICRO MICROSCOPIC Normal [facility] Comment on above: Performed By: #### 2 4336-0 #### [facility] [address] [place] [address] [employer] [place] [employer] [id number] Performed for [facility] [address] [place], [place] [address] Hyaline casts (Urine sed) [#/Area] 0-8 Normal 0-8 [facility] Comment on above: Performed By: #### 2 4336-0 #### [facility] [address] [place] [address] [employer] [place] [employer] [id number] Performed for [facility] [address] [place], [place] [address] Ketones (U) [Mass/Vol] 1+ Abnormal NEGATIVE [facility] Comment on above: Performed By: #### 2 4336-0 #### [facility] [address] [place] [address] [employer] [place] [employer] [id number] Performed for [facility] [address] [place], [place] [address] Leukocyte esterase Qn (U) Negative Normal TRACE [facility] Comment on above: Performed By: #### 2 4336-0 #### [facility] [address] [place], [place] [address] [employer] [place] [employer] [id number] Performed for [facility] [address] [place], [place] [address] Nitrite Ql (U) Negative Normal NEGATIVE [facility] Comment on above: Performed By: #### 2 4336-0 #### [facility] [address] [place] [address] [employer] [place] [employer] [id number] Performed for [facility] [address] [place], [place] [address] pH (U) 8.0 [pH] High 5.5-7.5 [facility] Comment on above: Performed By: #### 2 4336-0 #### [facility] [address] [place], [place] [address] [employer] [place] [employer] [id number] Performed for [facility] [address] [place], [place] [address] Protein (U) [Mass/Vol] Negative Normal NEGATIVE [facility] Comment on above: Performed By: #### 2 4336-0 #### [facility] [address] [place], [place] [address] [employer] [place] [employer] [id number] Performed for [facility] [address] [place], [place] [address] RBC (U) [#/Vol] TRACE Abnormal NEGATIVE [facility] Comment on above: Performed By: #### 2 4336-0 #### [facility] [address] [place] [address] [employer] [place] [employer] [id number] Performed for [facility] [address] [place], [place] [address] RBC LM.HPF (Urine sed) [#/Area] 4-10 Abnormal 0-4 [facility] Comment on above: Performed By: #### 2 4336-0 #### [facility] [address] [place], [place] [address] [employer] [place] [employer] [id number] Performed for [facility] [address] [place], [place] [address] Specific gravity (U) [Rel density] 1.013 Normal 1.010-1.03 5 [facility] Comment on above: Performed By: #### 2 4336-0 #### [facility] [address] [place], [place] [address] [employer] [place] [employer] [id number] Performed for [facility] [address] [place], [place] [address] SQUAMOUS EPITHELIALS 0-5 Normal 0-5 [facility] Comment on above: Performed By: #### 2 4336-0 #### [facility] [address] [place] [address] [employer] [place] [employer] [id number] Performed for [facility] [address] [place], [place] [address] Urobilinogen Qn (U) 0.2 {Luis Fernando'U}/dL Normal <=1.0 [facility] Comment on above: Performed By: #### 2 4336-0 #### [facility] [address] [place] [address] [employer] [place] [employer] [id number] Performed for [facility] [address] [place] [address] WBC LM.HPF (Urine sed) [#/Area] 0-5 Normal 0-5 [facility] Comment on above: Performed By: #### 2 4336-0 #### [facility] [address] [place] [address] [employer] [place] [employer] [id number] Performed for [facility] [address] [place], [place] [address] URINE DRUG SCREEN with CONFI RMATIONon 09-24-2023 Amphetamines Ql (U) Not detected Normal CUTOFF = 500 [facility] Comment on above: Performed By: #### 2 4336-0 #### [facility] [address] [place] [address] [employer] [place] [employer] [id number] Performed for [facility] [address] [place], [place] [address] Barbiturates Ql (U) Not detected Normal CUTOFF = 200 [facility] Comment on above: Performed By: #### 2 4336-0 #### [facility] [address] [place] [address] [employer] [place] [employer] [id number] Performed for [facility] [address] [place], [place] [address] Benzodiazepines Ql (U) Not detected Normal CUTOF F = 150 [facility] Comment on above: Performed By: #### 2 4336-0 #### [facility] [address] [place] [address] [employer] [place] [employer] [id number] Performed for [facility] [address] [place], [place] [address] Cocaine Ql (U) Not detected Normal CUTOFF = 150 [facility] Comment on above: Performed By: #### 2 4336-0 #### [facility] [address] [place] [address] [employer] [place] [employer] [id number] Performed for [facility] [address] [place], [place] [address] HDRUG Drugs of abuse juli garnica provides only a preliminary analytical test result. A more specific alternate chemical method must be used in order to obtain a confimed analytical result. Clinical consideration and professional judgment should be applied to any drug of abuse test result, particularly when preliminary positive results are obtained. Normal [facility] Comment on above: Performed By: #### 2 4336-0 #### [facility] [address] [place] [address] [employer] [place] [employer] [id number] Performed for [facility] [address] [place], [place] [address] Opiates Ql (U) Not detected Normal CUTOFF = 300 [facility] Comment on above: Performed By: #### 2 4336-0 #### [facility] [address] [place] [address] [employer] [place] [employer] [id number] Performed for [facility] [address] [place], [place] [address] oxyCODONE Ql (U) Detected Abnormal CUTOFF = 100 [facility] Comment on above: Performed By: #### 2 4336-0 #### [facility] [address] [place] [address] [employer] [place] [employer] [id number] Performed for [facility] [address] [place], [place] [address] Phencyclidine Ql (U) Not detected Normal CUTOFF = 25 [facility] Comment on above: Performed By: #### 2 4336-0 #### [facility] [address] [place] [address] [employer] [place] [employer] [id number] Performed for [facility] [address] [place] [address] Tetrahydrocannabinol Ql (U) Not detected Normal CUTOFF = 50 [facility] Comment on above: Performed By: #### 2 4336-0 #### [facility] [address] [place] [address] [employer] [place] [employer] [id number] Performed for [facility] [address] [place], [place] [address] ACETAMINOPHENon 09-23-2023 Acetaminophen [Mass/Vol] ug/mL Low 10.0-30.0 [facility] Comment on above: Performed By: #### 1 9123-9, LIPASE, 39880-5 #### [facility] [address] [place] [address] [employer] [place] [employer] [id number] ALCOHOLon 09-23-2023 Ethanol [Mass/Vol] mg/dL Normal <=3 [facility] Comment on above: Performed By: #### 1 9123-9, LIPASE, 01764-7 #### [facility] [address] [place] [address] [employer] [place] [employer] [id number] AMMONIAon 09-23-2023 Ammonia (P) [Moles/Vol] 30 umol/L Normal 11-32 [facility] Comment on above: Performed By: #### 1 9123-9, LIPASE, 80054-4 #### [facility] [address] [place] [address] [employer] [place] [employer] [id number] Acetaminophen [Mass/Vol]on 11-23-2022 HACET ACETAMINOPHEN INTERPRETATION Significant liver damage is considered likely if drug levels are greater than 300 ug/mL at 4 hours after ingestion or levels of 50 ug/mL after 12 hours. Normal [facility] Comment on above: Performed By: #### 1 9123-9, LIPASE, 31675-6 #### [facility] [address] [place] [address] [employer] [place] [employer] [id number] CBC W Auto Differential pane l (Bld)on 09-23-2023 Basophils (Bld) [#/Vol] 0.06 10*3/uL Normal <=0.70 [facility] Comment on above: Performed By: #### 5 7021-8 #### [facility] [address] [place] [address] [employer] [place] [id number] Basophils/100 WBC (Bld) 0.4 % Normal <=2.0 [facility] Comment on above: Performed By: #### 5 7021-8 #### [address] Director - [place] [employer] [id number] Eosinophils (Bld) [#/Vol] 0.03 10*3/uL Normal <=0.70 [facility] Comment on above: Performed By: #### 5 7021-8 #### [place] [address] Director - [place] [id number] Eosinophils/100 WBC (Bld) 0.2 % Normal <=10.0 [facility] Comment on above: Performed By: #### 5 7021-8 #### [address] [place] [address] [employer] [place] [employer] [id number] Erythrocyte distribution width (RBC) [Entitic vol] 52.5 fL High 36.4-46.3 [facility] Comment on above: Performed By: #### 5 7021-8 #### [facility] [address] [place] [address] [employer] [place] [id number] Hematocrit (Bld) [Volume fraction] 35.8 % Low 37.0-47.0 [facility] Comment on above: Performed By: #### 5 7021-8 #### [address] [facility] [place] [address] [employer] [place] [employer] [id number] Hemoglobin (Bld) [Mass/Vol] 10.7 g/dL Low 12.0-16.0 [facility] Comment on above: Performed By: #### 5 7021-8 #### [place] [address] [employer] [place] Maldonado CLIA [id number] Immature granulocytes (Bld) [#/Vol] 0.06 10*3/uL Normal <=0.10 [facility] Comment on above: Performed By: #### 5 7021-8 #### [place] [address] [employer] - Namrata Maldonado CLIA [id number] Immature granulocytes/100 WBC (Bld) 0.40 % Normal <=1.50 [facility] Comment on above: Performed By: #### 5 7021-8 #### [place] [address] [employer] [place]rata Maldonado CLIA [id number] Lymphocytes (Bld) [#/Vol] 1.27 10*3/uL Normal 1.20-3.40 [facility] Comment on above: Performed By: #### 5 7021-8 #### [place] [address] [employer] [place]rata Maldonado CLIA [id number] Lymphocytes/100 WBC (Bld) 8.9 % Low 20.0-40.0 [facility] Comment on above: Performed By: #### 5 7021-8 #### [place] [address] [employer] [place] Maldonado CLIA [id number] MCH (RBC) [Entitic mass] 22.0 pg Low 27.0-31.0 [facility] Comment on above: Performed By: #### 5 7021-8 #### [place] [address] [employer] [place] Maldonado CLIA [id number] MCHC (RBC) [Mass/Vol] 29.9 g/dL Low 32.0-36.0 [facility] Comment on above: Performed By: #### 5 7021-8 #### [facility] [address] [facility]. [place] [address] [employer] [place] HARTMANIA [id number] MCV (RBC) [Entitic vol] 73.5 fL Low 80.0-100.0 [facility] Comment on above: Performed By: #### 5 7021-8 #### [address] [place] [address] [employer] [place]rata Maldonado CLIA [id number] Monocytes (Bld) [#/Vol] 0.53 10*3/uL Normal 0.10-0.60 [facility] Comment on above: Performed By: #### 5 7021-8 #### [address] [place] [address] [employer] [place]rata Maldonado CLIA [id number] Monocytes/100 WBC (Bld) 3.7 % Normal <=8.0 [facility] Comment on above: Performed By: #### 5 7021-8 #### [address] [place] [address] [employer] [place] Maldonado CLIA [id number] Neutrophils (Bld) [#/Vol] 12.32 10*3/uL High 1.40-6.50 [facility] Comment on above: Performed By: #### 5 7021-8 #### [address] [place] [address] [employer] [place]rata Maldonado CLIA [id number] Neutrophils/100 WBC (Bld) 86.4 % High 50.0-70.0 [facility] Comment on above: Performed By: #### 5 7021-8 #### [address] [place] [address] [employer] [place]rata Maldonado CLIA [id number] Nucleated RBC (Bld) [#/Vol] 0.00 10*3/uL Normal <=0.10 [facility] Comment on above: Performed By: #### 5 7021-8 #### [facility] [address] [place] [address] [employer] [place] SKINNER [id number] Platelet mean volume (Bld) [Entitic vol] 8.7 fL Low 9.0-13.0 [facility] Comment on above: Performed By: #### 5 7021-8 #### [facility] [address] [place] [address] [employer] [place] SKINNER [id number] Platelets (Bld) [#/Vol] 436 10*3/uL High 130-400 [facility] Comment on above: Performed By: #### 5 7021-8 #### [place] [address] [place] [address] [employer] [place] SKINNER [id number] RBC (Bld) [#/Vol] 4.87 10*6/uL Normal 4.00-6.30 [facility] Comment on above: Performed By: #### 5 7021-8 #### [place] [address] [place] [address] [employer] [place] SKINNER [id number] WBC (Bld) [#/Vol] 14.27 10*3/uL High 4.80-10.80 [facility] Comment on above: Performed By: #### 5 7021-8 #### [place] [address] [place] [address] [employer] [place] SKINNER [id number] [facility] CK [Catalytic activity/Vol] 108 U/L Normal 21-215 [facility] Comment on above: Performed By: #### 2 4336-0 #### [facility] [address] [place] [address] [employer] [place] SKINNER [id number] Performed for [facility] [address] [place] [address] [address] HEAD WITHOUT ONLYon 09-23 CT HEAD [...] intracranial hemorrhage or other acute finding. Normal [facility] Comprehensive metabolic 2000 panelon 09-23-2023 Albumin [Mass/Vol] 3.1 g/dL Low 3.4-5.0 [facility] Comment on above: Performed By: #### 1 9123-9, LIPASE, 57425-7 #### [facility] [address] [place] [address] [employer] [place] HARTMANIA [id number] ALP [Catalytic activity/Vol] 98 U/L Normal 50-136 [facility] Comment on above: Performed By: #### 1 9123-9, LIPASE, 59352-4 #### [facility] [address] [place] [address] [employer] [place] HARTMANIA [id number] ALT [Catalytic activity/Vol] 26 U/L Normal 14-59 [facility] Comment on above: Performed By: #### 1 9123-9, LIPASE, 73862-3 #### [facility] [address] [place] [address] [employer] [place] HARTMANIA [id number] Anion gap [Moles/Vol] 8.0 mmol/L Normal <=15.0 [facility] Comment on above: Performed By: #### 1 9123-9, LIPASE, 92896-5 #### [facility] [address] [place] [address] [employer] [place] HARTMANIA [id number] AST [Catalytic activity/Vol] 24 U/L Normal 15-37 [facility] Comment on above: Performed By: #### 1 9123-9, LIPASE, 00976-3 #### [facility] [address] [place] [address] [employer] [place] HARTMANIA [id number] Bilirubin [Mass/Vol] 0.4 mg/dL Normal 0.2-1.0 [facility] Comment on above: Performed By: #### 1 23-9, LIPASE, 66575-8 #### [facility] [address] [place] [address] [employer] [place]rata Maldonado CLIA [id number] Calcium [Mass/Vol] 8.5 mg/dL Normal 8.5-10.1 [facility] Comment on above: Performed By: #### 1 9122-9, LIPASE, 21909-5 #### [facility] [address] [place] [address] [employer] [place] HARTMANIA [id number] Chloride [Moles/Vol] 99 mmol/L Normal 98-107 [facility] Comment on above: Performed By: #### 1 9122-9, LIPASE, 36833-1 #### [facility] [address] [place] [address] [employer] Namrata Maldonado CLIA [id number] CO2 [Moles/Vol] 24 mmol/L Normal 21-32 [facility] Comment on above: Performed By: #### 1 23-9, LIPASE, 03138-2 #### [facility] [address] [place] [address] [employer] [place] HARTMANIA [id number] Creatinine [Mass/Vol] 0.74 mg/dL Normal 0.51-0.95 [facility] Comment on above: Performed By: #### 1 23-9, LIPASE, 76559-7 #### [facility] [address] [place] [address] [employer] [place]rata Maldonado CLIA [id number] GFR/1.73 sq M.predicted MDRD (S/P/Bld) [Vol rate/Area] mL/min/{1.73_m2} Normal >=59 [facility] Comment on above: Performed By: #### 1 9122-9, LIPASE, 54298-5 #### [facility] [address] [place] [address] [employer] [place] SKINNER [id number] Glucose [Mass/Vol] 108 mg/dL High 74-106 [facility] Comment on above: Performed By: #### 1 23-9, LIPASE, 15329-2 #### [facility] [address] [place] [address] [employer] [place] SKINNER [id number] HGFR GLOMERULAR FILTRATIO N RATE INTERPRETATION~The eGFR [...] months, with or without kidney damage.~ Normal [facility] Comment on above: Performed By: #### 1 23-9, LIPASE, 56684-6 #### [facility] [address] [place] [address] [employer] [place] SKINNER [id number] Potassium [Moles/Vol] 4.5 mmol/L Normal 3.5-5.1 [facility] Comment on above: Performed By: #### 1 23-9, LIPASE, 03102-3 #### [facility] [address] [place] [address] [employer] [place] SKINNER [id number] Protein [Mass/Vol] 7.8 g/dL Normal 6.4-8.2 [facility] Comment on above: Performed By: #### 1 23-9, LIPASE, 30721-1 #### [facility] [address] [place] [address] [employer] [place] SKINNER [id number] Sodium [Moles/Vol] 131 mmol/L Low 136-145 [facility] Comment on above: Performed By: #### 1 9123-9, LIPASE, 02249-6 #### [facility] [address] [place] [address] [employer] [place] SKINNER [id number] Urea nitrogen [Mass/Vol] 12 mg/dL Normal - [facility] Comment on above: Performed By: #### 1 9123-9, LIPASE, 73934-4 #### [facility] [address] [place] [address] [employer] [place] SKINNER [id number] Ethanol [Mass/Vol]on 023 HALC ALCOHOL INTERPRETATI ON <3 mg/dL Negative 50-100 mg/dL Toxic >100 Depression of SOFTWARE SUPPORT REPRESENTATIVE ALCOHOL UNIT CONVERSION To convert to g/dL divide result by 1000. Normal [facility] Comment on above: Performed By: #### 1 9123-9, LIPASE, 84676-6 #### [facility] [address] [place] [address] [employer] [place] SKINNER [id number] FOLATEon 09-23-2023 Folate [Mass/Vol] ng/mL High 3.1-17.5 [facility] Comment on above: Result Comment: Spec imen slightly hemolyzed. Test results may be affected. Performed By: #### 2 4336-0 #### [facility] [address] [place] [address] [employer] [place] SKINNER [id number] Performed for [facility] [address] [place] [address] Gas panel (BldA)on 3 Base excess Calc (Bld) [Moles/Vol] 1 mmol/L Normal -2-2 [facility] Comment on above: Performed By: #### 2 4336-0 #### [facility] [address] [place] [address] [employer] [place] SKINNER [id number] Performed for [facility] [address] [place], [place] [address] Carboxyhemoglobin (BldA) [Mass fraction] 3.5 % Normal [facility] Comment on above: Performed By: #### 2 4336-0 #### [facility] [address] [place], [place] [address] [employer] [place] SKINNER [id number] Performed for [facility] [address] [place], [place] [address] Chloride [Moles/Vol] 98 mmol/L Normal 98-107 [facility] Comment on above: Performed By: #### 2 4336-0 #### [facility] [address] [place], [place] [address] [employer] [place] SKINNER [id number] Performed for [facility] [address] [place], [place] [address] CO2 (Bld) [Partial pressure] 36.8 mm/Hg Normal 35.0-45.0 [facility] Comment on above: Performed By: #### 2 4336-0 #### [facility] [address] [place], [place] [address] [employer] [place] SKINNER [id number] Performed for [facility] [address] [place], [place] [address] DEOXYHEMOGLOBIN 6 % Normal [facility] Comment on above: Performed By: #### 2 4336-0 #### [facility] [address] [place], [place] [address] [employer] [place] SKINNER [id number] Performed for [facility] [address] [place], [place] [address] FLOW Normal [facility] Comment on above: Performed By: #### 2 4336-0 #### [facility] [address] [place], [place] [address] [employer] [place] SKINNER [id number] Performed for [facility] [address] [place], [place] [address] Glucose [Mass/Vol] 95 mg/dL Normal 65-110 [facility] Comment on above: Performed By: #### 2 4336-0 #### [facility] [address] [place] [address] [employer] [place] SKINNER [id number] Performed for [facility] [address] [place] [address] HCARBOXY NON-SMOKERS 0.0-1.5% SMOKERS 1.5-5.0% Normal [facility] Comment on above: Performed By: #### 2 4336-0 #### [facility] [address] [place] [address] [employer] [place] SKINNER [id number] Performed for [facility] [address] [place] [address] HCO3 (Bld) [Moles/Vol] 24.6 mmol/L Normal 22.0-26.0 [facility] Comment on above: Performed By: #### 2 4336-0 #### [facility] [address] [place] [address] [employer] [place] SKINNER [id number] Performed for [facility] [address] [place] [address] HEADING CO-OXIMETRY CO-OXIMETRY Normal [facility] Comment on above: Performed By: #### 2 4336-0 #### [facility] [address] [place] [address] [employer] [place] SKINNER [id number] Performed for [facility] [address] [place] [address] HEADING CO-OXIMETRY CHEMISTRY Normal [facility] Comment on above: Performed By: #### 2 4336-0 #### [facility] [address] [place] [address] [employer] [place] SKINNER [id number] Performed for [facility] [address] [place] [address] Hemoglobin (Bld) [Mass/Vol] 11.1 g/dL Low 12.0-16.0 [facility] Comment on above: Performed By: #### 2 4336-0 #### [facility] [address] [place] [address] [employer] [place] SKINNER [id number] Performed for [facility] [address] [place], [place] [address] IONIZED CA 1.1 mmol/L Normal 1.1-1.4 [facility] Comment on above: Performed By: #### 2 4336-0 #### [facility] [address] [place] [address] [employer] [place] SKINNER [id number] Performed for [facility] [address] [place], [place] [address] Lactate [Moles/Vol] 2.8 mmol/L High 0.4-2.0 [facility] Comment on above: Performed By: #### 2 4336-0 #### [facility] [address] [place] [address] [employer] [place] SKINNER [id number] Performed for [facility] [address] [place], [place] [address] M.A.T. Positive Normal POSITIVE [facility] Comment on above: Performed By: #### 2 4336-0 #### [facility] [address] [place] [address] [employer] [place] SKINNER [id number] Performed for [facility] [address] [place], [place] [address] Methemoglobin (BldA) [Mass fraction] 0.3 % Normal 0.0-1.5 [facility] Comment on above: Performed By: #### 2 4336-0 #### [facility] [address] [place] [address] [employer] [place] SKINNER [id number] Performed for [facility] [address] [place], [place] [address] MODE Normal MODE [facility] Comment on above: Performed By: #### 2 4336-0 #### [facility] [address] [place] [address] [employer] [place] SKINNER [id number] Performed for [facility] [address] [place], [place] [address] Oxygen (Bld) [Partial pressure] 65 mm/Hg Low 80-100 [facility] Comment on above: Performed By: #### 2 4336-0 #### [facility] [address] [place], [place] [address] [employer] [place] SK[employer]NER [id number] Performed for [facility] [address] [place], [place] [address] Oxygen capacity (BldA) [Volume fraction] 21 % Normal [facility] Comment on above: Performed By: #### 2 4336-0 #### [facility] [address] [place], [place] [address] [employer] [place] SKINNER [id number] Performed for [facility] [address] [place], [place] [address] Oxyhemoglobin (BldA) [Mass fraction] 91 % Low 92-100 [facility] Comment on above: Performed By: #### 2 4336-0 #### [facility] [address] [place] [address] [employer] [place] SKINNER [id number] Performed for [facility] [address] [place], [place] [address] PEEP Normal [facility] Comment on above: Performed By: #### 2 4336-0 #### [facility] [address] [place], [place] [address] [employer] [place] SK[employer]NER [id number] Performed for [facility] [address] [place], [place] [address] pH (Bld) 7.443 [pH] Normal 7.350-7.45 0 [facility] Comment on above: Performed By: #### 2 4336-0 #### [facility] [address] [place] [address] [employer] [place] SKINNER [id number] Performed for [facility] [address] [place], [place] [address] Potassium [Moles/Vol] 4.1 mmol/L Normal 3.2-5.1 [facility] Comment on above: Performed By: #### 2 4336-0 #### [facility] [address] [place], [place] [address] [employer] [place] SKINNER [id number] Performed for [facility] [address] [place], [place] [address] RATE 14 Normal [facility] Comment on above: Performed By: #### 2 4336-0 #### [facility] [address] [place], [place] [address] [employer] [place] SKINNER [id number] Performed for [facility] [address] [place], [place] [address] TIDAL VOLUME Normal [facility] Comment on above: Performed By: #### 2 4336-0 #### [facility] [address] [place], [place] [address] [employer] [place] SKINNER [id number] Performed for [facility] [address] [place], [place] [address] Tumor site Nom (Spec) R RADIAL Normal SITE [facility] Comment on above: Performed By: #### 2 4336-0 #### [facility] [address] [place], [place] [address] [employer] [place] SKINNER [id number] Performed for [facility] [address] [place], [place] [address] ARTERIAL BLOOD GAS Normal 131-143 [facility] Comment on above: Performed By: #### 2 4336-0 #### [facility] [address] [place], [place] [address] [employer] [place] SKINNER [id number] Performed for [facility] [address] [place], [place] [address] LACTATEon 09-23-2023 Lactate [Moles/Vol] 2.5 mmol/L High 0.4-2.0 [facility] Comment on above: Performed By: #### 2 524-7 #### [facility] [address] [place], [place] [address] [employer] [place] SK[employer]NER [id number] Lactate [Moles/Vol] 3.1 mmol/L High 0.4-2.0 [facility] Comment on above: Performed By: #### 2 524-7 #### [facility] [address] [place] [address] [employer] [place] SK[employer]NER [id number] LIPASEon 09-23-2023 LIPASES 37 U/L Normal 13 [facility] Comment on above: Performed By: #### 1 9123-9, LIPASE, 78731-6 #### [facility] [address] [place] [address] [employer] [place] SKINNER [id number] MAGNESIUMon 09-23-2023 Magnesium [Mass/Vol] 1.9 mg/dL Normal 1.6-2.6 [facility] Comment on above: Result Comment: Spec imen moderately hemolyzed. Test results may be affected. Performed By: #### 1 9123-9, LIPASE, 23820-6 #### [facility] [address] [place] [address] [employer] [place] SK[employer]NER [id number] PT and aPTT panel Coag (PPP) on 09-23-2023 aPTT Coag (PPP) [Time] 38.1 s High 23.5-31.3 [facility] Comment on above: Performed By: #### 3 4529-8 #### [facility] [address] [place] [address] [employer] [place] SKINNER [id number] HPTINR INR REFERENCE RANGE INTERPRETATION Patients on Coumadin 2.0 - 3.0 Patients with mechanical heart valves 2.5 - 3.5 Normal [facility] Comment on above: Performed By: #### 3 4529-8 #### [facility] [address] [place] [address] [employer] [place] SK[employer]NER [id number] INR Coag (PPP) [Relative time] 3.2 {INR} High 0.8-1.1 [facility] Comment on above: Performed By: #### 3 4529-8 #### [facility] [address] [place] [address] [employer] [place] SK[employer]NER [id number] PT Coag (PPP) [Time] 30.4 s High 9.3-11.5 [facility] Comment on above: Performed By: #### 3 4529-8 #### [facility] [address] [place] [address] [employer] [place] HARTMANIA [id number] SALICYLATEon 09-23-2023 Salicylates [Mass/Vol] 5.6 mg/dL Normal 2.8-20.0 [facility] Comment on above: Performed By: #### 2 524-7 #### [facility] [address] [place] [address] [employer] [place] [employer] [id number] TROPONIN HIGH SENSITIVITYon 09-23-2023 TNIH 6.60 pg/mL Normal <=59.00 [facility] Comment on above: Result Comment: <59 pg/mL is considered a negative result. Performed By: #### T ROP2 #### [place] [address] [place] [address] [employer] [facility] [id number] TNIH 7.60 pg/mL Normal <=59.00 [facility] Comment on above: Result Comment: <59 pg/mL is considered a negative result. Performed By: #### 1 9123-9, LIPASE, 25985-7 #### [place] [address] [place] [address] [employer] [place] HARTMANIA [id number] TSH DL <= 0.05 mIU/L Qnon TSH Qn 0.948 uIU/mL Normal 0.358-3.74 0 [facility] Comment on above: Performed By: #### 2 4336-0 #### [facility] [address] [place] [address] [employer] [facility] [id number] Performed for [facility] [address] [place] [address] VITAMIN B12on 09-23-2023 Cobalamin (Vitamin B12) [Mass/Vol] 446 pg/mL Normal 254-1320 [facility] Comment on above: Performed By: #### 2 4336-0 #### [facility] [address] [place], [place] [address] [employer] [place] [employer] [id number] Performed for [facility] [address] [place], [place] [address] C REACTIVE PROTEINon 022 CRP [Mass/Vol] 28.1 mg/L High 0 - 10.0 MG/L [facility] Interpretation and review of laboratory results Abnormal [facility] SEDIMENTATION RATE, AUTOMATE Don 12-22-2021 ESR (Bld) [Velocity] 130 mm/h High [facility] Interpretation and review of laboratory results Abnormal [facility] Ova and Parasite Exon 2019 Ova and Parasite Ex Specimen Desc: STOOL Sp. Request/Comment: OPKIT Culture Result NOPARA Report Status 06/11/2020 FINAL Normal [facility] CREFon 12-29-2018 CREF . MICRO - Microbiology PROCEDURE: Culture Reference ID [[id number]: [id number] *1] SOURCE: Body Fluid BODY SITE: COLLECTED DATE/TIME: 12/12/2018 11:25 EST RECEIVED DATE/TIME: 12/17/2018 17:16 EST START DATE/TIME: 12/17/2018 17:20 EST FREE TEXT SOURCE: Pasteurella multocida R knee fluid FINAL REPORTS Final Report [] Verified Date/Time/Personnel: 12/29/2018 11:40 EST Pasteurella multocida Azithromycin: 0.5: S Levofloxacin: <=0.06: S Penicillin: 0.12: S Trimethoprim/Sulfamethoxa zole: <=0.12/2.4: S Ampicillin: 0.25: S Tetracycline: <=1: S Performed by [facility], [address] [place] [address], [place] [address] [email or web address], Duong Gonzalez MD, Lab.Director PRELIMINARY REPORTS Preliminary Report [] Verified Date/Time/Personnel: 12/19/2018 08:10 EST Pasteurella multocida MAYA to follow Preliminary Report [] Verified Date/Time/Personnel: 12/18/2018 12:56 EST Culture results pending. Order Comments O1: Culture Reference ID send to [facility] for maya on Pasturella multocida. Performing Locations *1: This test was performed at: [facility], [address] [place] [address], [phone] , [facility] ([place]) Comment on above: Performed By: #### C REF #### [place] [address] B12 & FOLATEon 12-17-2018 Cobalamin (Vitamin B12) mass conc 838 pg/mL 180 - 914 PG/ML [facility] Folate mass conc 20.1 ng/mL >5.9 NG/ML [facility] CBC, EDIF, PLATELETon 2018 ABSOLUTE BASOPHIL COUNT 0.1 X10 [facility] Basophils/100 WBC (Bld) 0.9 % 0 - 2 % [facility] Differential cell count method Nom (Bld) AUTO DIFF % [facility] Eosinophils #/vol (Bld) 0.20 [...] HEALTH RBC #/vol (Bld) 3.40 10*6/uL Low [facility] WBC #/vol (Bld) 7.3 10*3/uL [facility] IRON/IRON BINDING/TRANSFERRI Non 12-17-2018 Iron binding capacity mass conc 189 Low [facility] Iron mass conc 21 ug/dL Low [facility] Iron saturation mass fraction 11 % [facility] Otheron 12-17-2018 Interpretation and review of laboratory results Abnormal [employer] PROTIME-INRon 12-17-2018 INR Coag RelTime (PPP) 2.08 {INR} High [facility] Comment on above: 2.0-3.0 THERAPEUTIC RANGE 2.5-3.5 PROSTHETIC VALVE RANGE Prothrombin time (PT) Coag time (PPP) 22.9 s High [employer] RENAL FUNCTION PANELon 12-17 Albumin mass conc 2.1 G/dl Low 3.5 - 5 G/dl [facility] Calcium mass conc 7.8 mg/dL Low [facility] Chloride molar conc 111 mmol/L High [facility] CO2 molar conc 27 mmol/L [facility] Creatinine mass conc 0.7 mg/dL [facility] GFR/1.73 sq M predicted among blacks MDRD vol rate/area (S/P/Bld) mL/min/{1.73_m2} ml/min/1.7 3sq.m [facility] [employer] GFR/1.73 sq M predicted among non-blacks MDRD vol rate/area (S/P/Bld) Average GFR for 60-69 years old = 85. [employer] Comment on above: Chronic Kidney disea se, GFR = <60. Kidney failure, GFR = <15. The GFR estimate is not adjusted for extreme body surface area or acute process, nor has it been validated for women or ethnic groups other than and . GFR/1.73 sq M predicted among non-blacks MDRD vol rate/area (S/P/Bld) mL/min/{1.73_m2} ml/min/1.7 3sq.m [employer] Glucose fasting mass conc 82 mg/dL [employer] [employer] Comment on above: NORMAL <100 mg/dL PREDIABETES 101-126 mg/dL DIABETES 126 mg/dL or higher Phosphate mass conc 4.2 mg/dL [facility] Potassium molar conc 3.6 mmol/L [facility] Sodium molar conc 140 mmol/L [facility] Urea nitrogen mass conc 12 mg/dL [facility] REQUESTon 12-17-2018 Pathology report final diagnosis Narrative Surgical Final Report Patient Name: AMNA SEQUEIRA Med. Rec. #: [id number] Physician: GALINDO ZEPEDA Copy To: DARREN SMITH Specimen(s) Received Fluid for crystals Other Related Clinical Data Not provided Clinical / Pre-Operative Diagnosis Not provided Post-Operative Diagnosis Not provided Surgical Procedure Synovial fluid aspiration Diagnosis: Synovial Fluid, Crystal Analysis, aspiration: -Negative for Crystals Electronically Signed [facility]/12/17/2018 Libra Caal MD Gross Description: The specimen is received in heparin, and labeled fluid for crystals, Amna Sequeira, and date of 1955. The specimen consists of 2 ml of red, opaque fluid. A slide is created for microscopic examination. Billing Fee Code(s) A: 22560 [employer] XR CHEST PORTABLE FOR LINE P LACEMENTon [...] tip projecting at the atrial caval junction. [employer] Impression: No acute findings. Right PICC line positioning with tip projecting at the atrial caval junction. [employer] User, Interfaces - 12/17/2018 6:37 PM EST [...] tip projecting at the atrial caval junction. [facility] CBC, EDIF, PLATELETon 2018 ABSOLUTE BASOPHIL COUNT 0.1 X10 [facility] Basophils/100 WBC (Bld) 1.0 % 0 - 2 % [facility] Differential cell count method Nom (Bld) AUTO DIFF % [facility] Eosinophils #/vol (Bld) 0.20 10*3/uL X10 [facility] Eosinophils/100 WBC (Bld) 1.9 % 0 - 11 % [facility] Erythrocyte distribution width Ratio (RBC) 18.6 % High 11.5 - 14.5 % [facility] Hematocrit Volume Fraction (Bld) 28.0 % Low 36 - 48 % [facility] Hemoglobin mass conc (Bld) 9.4 g/dL Low [facility] Lymphocytes #/vol (Bld) 1.60 10*3/uL X10 [facility] Lymphocytes/100 WBC (Bld) 16.4 % Low 20 - 55 % [facility] MCH Entitic mass (RBC) 29.0 pg 26 - 35 PG [facility] MCHC mass conc (RBC) 33.5 g/dL [facility] MCV Entitic volume (RBC) 86.4 fL [facility] Monocytes #/vol (Bld) 0.6 10*3/uL X10 [facility] Monocytes/100 WBC (Bld) 6.4 % 0 - 10 % [facility] Neutrophils #/vol (Bld) 7.2 10*3/uL High [facility] Neutrophils/100 WBC (Bld) 74.3 % 37 - 75 % [facility] Platelet mean volume Entitic volume (Bld) 8.5 fL [facility] Platelets #/vol (Bld) 431 10*3/uL High [facility] RBC #/vol (Bld) 3.23 10*6/uL Low [facility] WBC #/vol (Bld) 9.6 10*3/uL [facility] Otheron 12-16-2018 Interpretation and review of laboratory results Abnormal [facility] PROTIME-INRon 12-16-2018 INR Coag RelTime (PPP) 1.81 {INR} High [facility] Comment on above: 2.0-3.0 THERAPEUTIC RANGE 2.5-3.5 PROSTHETIC VALVE RANGE Prothrombin time (PT) Coag time (PPP) 20.6 s High [facility] RENAL FUNCTION PANELon 12-16 Albumin mass conc 1.9 G/dl Low 3.5 - 5 G/dl [facility] Calcium mass conc 7.7 mg/dL Low [facility] Chloride molar conc 108 mmol/L High [facility] CO2 molar conc 23 mmol/L [facility] Creatinine mass conc 0.7 mg/dL [facility] GFR/1.73 sq M predicted among blacks MDRD vol rate/area (S/P/Bld) mL/min/{1.73_m2} ml/min/1.7 3sq.m [facility] GFR/1.73 sq M predicted among non-blacks MDRD vol rate/area (S/P/Bld) mL/min/{1.73_m2} ml/min/1.7 3sq.m [facility] GFR/1.73 sq M predicted among non-blacks MDRD vol rate/area (S/P/Bld) Average GFR for 60-69 years old = 85. [facility] Comment on above: Chronic Kidney disea se, GFR = <60. Kidney failure, GFR = <15. The GFR estimate is not adjusted for extreme body surface area or acute process, nor has it been validated for women or ethnic groups other than and . Glucose fasting mass conc 87 mg/dL [facility] Comment on above: NORMAL <100 mg/dL PREDIABETES 101-126 mg/dL DIABETES 126 mg/dL or higher Phosphate mass conc 2.9 mg/dL [facility] Potassium molar conc 3.4 mmol/L Low [facility] Sodium molar conc 138 mmol/L [facility] Urea nitrogen mass conc 15 mg/dL [facility] CBC, EDIF, PLATELETon 2018 ABSOLUTE BASOPHIL COUNT 0.1 X10 [facility] Basophils/100 WBC (Bld) 1.0 % 0 - 2 % [facility] Differential cell count method Nom (Bld) AUTO DIFF % [facility] Eosinophils #/vol (Bld) 0.00 10*3/uL X10 [facility] Eosinophils/100 WBC (Bld) 0.0 % 0 - 11 % [facility] Erythrocyte distribution width Ratio (RBC) 18.3 % High 11.5 - 14.5 % [facility] Hematocrit Volume Fraction (Bld) 29.0 % Low 36 - 48 % [facility] Hemoglobin mass conc (Bld) 9.5 g/dL Low [facility] Lymphocytes #/vol (Bld) 0.60 10*3/uL X10 [facility] Lymphocytes/100 WBC (Bld) 4.8 % Low 20 - 55 % [facility] MCH Entitic mass (RBC) 28.2 pg 26 - 35 PG [facility] MCHC mass conc (RBC) 32.7 g/dL [facility] MCV Entitic volume (RBC) 86.1 fL [facility] Monocytes #/vol (Bld) 0.5 10*3/uL X10 [facility] Monocytes/100 WBC (Bld) 3.8 % 0 - 10 % [facility] Neutrophils #/vol (Bld) 11.6 10*3/uL High [facility] Neutrophils/100 WBC (Bld) 90.4 % High 37 - 75 % [facility] Platelet mean volume Entitic volume (Bld) 7.9 fL [facility] Platelets #/vol (Bld) 404 10*3/uL High [facility] RBC #/vol (Bld) 3.37 10*6/uL Low [facility] WBC #/vol (Bld) 12.8 10*3/uL High [facility] Otheron 12-15-2018 Interpretation and review of laboratory results Abnormal [facility] [employer] PROTIME-INRon 12-15-2018 INR Coag RelTime (PPP) 1.18 {INR} High [facility] Comment on above: 2.0-3.0 THERAPEUTIC RANGE 2.5-3.5 PROSTHETIC VALVE RANGE Prothrombin time (PT) Coag time (PPP) 14.9 s High [facility] RENAL FUNCTION PANELon 12-15 Albumin mass conc 2.0 G/dl Low 3.5 - 5 G/dl [facility] Calcium mass conc 7.6 mg/dL Low [facility] Chloride molar conc 107 mmol/L [facility] CO2 molar conc 21 mmol/L Low [facility] Creatinine mass conc 0.7 mg/dL [facility] GFR/1.73 sq M predicted among blacks MDRD vol rate/area (S/P/Bld) mL/min/{1.73_m2} ml/min/1.7 3sq.m [facility] GFR/1.73 sq M predicted among non-blacks MDRD vol rate/area (S/P/Bld) Average GFR for 60-69 years old = 85. [employer] Comment on above: Chronic Kidney disea se, GFR = <60. Kidney failure, GFR = <15. The GFR estimate is not adjusted for extreme body surface area or acute process, nor has it been validated for women or ethnic groups other than and . GFR/1.73 sq M predicted among non-blacks MDRD vol rate/area (S/P/Bld) mL/min/{1.73_m2} ml/min/1.7 3sq.m [employer] Glucose fasting mass conc 110 mg/dL High [facility] [employer] Comment on above: NORMAL <100 mg/dL PREDIABETES 101-126 mg/dL DIABETES 126 mg/dL or higher Phosphate mass conc 4.2 mg/dL [facility] [employer] Potassium molar conc 4.4 mmol/L [facility] Sodium molar conc 136 mmol/L [facility] Urea nitrogen mass conc 11 mg/dL [facility] [employer] B-TYPE NATRIURETIC PEPTIDE ( BRAIN)on 12-14-2018 Natriuretic peptide B mass conc (Bld) 58 pg/mL 0 - 100 pg/mL [facility] [employer] CBC, EDIF, PLATELETon 2018 ABSOLUTE BASOPHIL COUNT 0.1 X10 [facility] [employer] Basophils/100 WBC (Bld) 0.9 % 0 - 2 % [facility] [employer] Differential cell count method Nom (Bld) AUTO DIFF % [facility] Eosinophils #/vol (Bld) 0.20 10*3/uL X10 [facility] [employer] Eosinophils/100 WBC (Bld) 2.2 % 0 - 11 % [facility] [employer] Erythrocyte distribution width Ratio (RBC) 17.7 % High 11.5 - 14.5 % [facility] [employer] Hematocrit Volume Fraction (Bld) 32.0 % Low 36 - 48 % [facility] [employer] Hemoglobin mass conc (Bld) 10.7 g/dL Low [facility] [employer] Lymphocytes #/vol (Bld) 1.20 10*3/uL X10 [facility] [employer] Lymphocytes/100 WBC (Bld) 14.3 % Low 20 - 55 % [facility] [employer] MCH Entitic mass (RBC) 28.2 pg 26 - 35 PG [facility] MCHC mass conc (RBC) 33.3 g/dL [facility] MCV Entitic volume (RBC) 84.7 fL [facility] Monocytes #/vol (Bld) 0.7 10*3/uL X10 [facility] Monocytes/100 WBC (Bld) 7.9 % 0 - 10 % [facility] Neutrophils #/vol (Bld) 6.2 10*3/uL [facility] Neutrophils/100 WBC (Bld) 74.7 % 37 - 75 % [facility] Platelet mean volume Entitic volume (Bld) 8.1 fL [facility] Platelets #/vol (Bld) 374 10*3/uL [facility] RBC #/vol (Bld) 3.78 10*6/uL Low [facility] WBC #/vol (Bld) 8.3 10*3/uL [facility] Otheron 12-14-2018 Interpretation and review of laboratory results Abnormal [facility] PROTIME-INRon 12-14-2018 INR Coag RelTime (PPP) 1.09 {INR} [facility] Comment on above: 2.0-3.0 THERAPEUTIC RANGE 2.5-3.5 PROSTHETIC VALVE RANGE Prothrombin time (PT) Coag time (PPP) 14.0 s [employer] RENAL FUNCTION PANELon 12-14 Albumin mass conc 2.2 G/dl Low 3.5 - 5 G/dl [facility] Calcium mass conc 8.1 mg/dL Low [facility] Chloride molar conc 104 mmol/L [facility] CO2 molar conc 25 mmol/L [facility] Creatinine mass conc 0.6 mg/dL [facility] GFR/1.73 sq M predicted among blacks MDRD vol rate/area (S/P/Bld) mL/min/{1.73_m2} ml/min/1.7 3sq.m [facility] [employer] GFR/1.73 sq M predicted among non-blacks MDRD vol rate/area (S/P/Bld) Average GFR for 60-69 years old = 85. [employer] Comment on above: Chronic Kidney disea se, GFR = <60. Kidney failure, GFR = <15. The GFR estimate is not adjusted for extreme body surface area or acute process, nor has it been validated for women or ethnic groups other than and . GFR/1.73 sq M predicted among non-blacks MDRD vol rate/area (S/P/Bld) mL/min/{1.73_m2} ml/min/1.7 3sq.m [employer] Glucose fasting mass conc 94 mg/dL [employer] Comment on above: NORMAL <100 mg/dL PREDIABETES 101-126 mg/dL DIABETES 126 mg/dL or higher Phosphate mass conc 4.1 mg/dL [employer] Potassium molar conc 3.1 mmol/L Low [facility] Sodium molar conc 139 mmol/L [email or web address] Urea nitrogen mass conc 7 mg/dL [employer] REPEAT ABO/RH (D) TYPINGon 0 12-14-2018 ABO and Rh group Nom (Bld ) Negative [employer] XR KNEE RIGHT 2 VIEWSon 11-30 XR [...] gas is present consistent with recent surgery. [employer] User, Interfaces - 12/14/2018 6:41 PM EST [...] of hardware complications or acute osseous abnormality. [employer] IMPRESSION: Revised total right knee arthroplasty without radiographic signs of hardware complications or acute osseous abnormality. [employer] XR SPINE CERVICAL WITH OBL A ND [...] left bony neural foraminal narrowing at C4-C5. [employer] IMPRESSION: No acute abnormality in the cervical spine. No abnormal motion noted during flexion and extension. 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 [employer] XR SPINE CERVICAL WI TH OBL AND [...] portions of the upper thorax are unremarkable. [employer] SCREEN: MRSA ONLY, NARES (IS OLATION SCREEN)on 12-13-2018 MRSA isol Org specific cx Ql (Nose) Negative [employer] STAPHYOCOCCUS AUREUS BY PCR Negative [employer] Comment on above: TESTING PERFORMED BY PCR Vital Signs Date Time Vital Sign Value Performing Clinician Facility 05-13-2025 13:15-0400 Body temperature 97.3 [degF] Dr. Galindo Gutierrez MD Work Phone: [facility] 05-13-2025 13:15-0400 Diastolic blood pressure 67 mm[Hg] Dr. Galindo Gutierrez MD Work Phone: [facility] 05-13-2025 13:15-0400 Heart rate 84 /min Dr. Galidno Gutierrez MD Work Phone: [facility] 05-13-2025 13:15-0400 Respiratory rate 24 /min Dr. Galindo Gutierrez MD Work Phone: [facility] 05-13-2025 13:15-0400 SaO2% (BldA) [Mass fraction] 90 % Dr. Galindo Gutierrez MD Work Phone: [facility] 05-13-2025 13:15-0400 Systolic blood pressure 122 mm[Hg] Dr. Galindo Gutierrez MD Work Phone: [facility] 05-13-2025 13:00-0400 Inhaled oxygen flow rate 2 L/min Dr. Galindo Gutierrez MD Work Phone: [facility] 05-13-2025 11:08-0400 Body height 162.[address] Galindo Gutierrez MD Work Phone: [facility] 05-13-2025 11:08-0400 Body mass index (BMI) [Ratio] 33.7 kg/m2 Dr. Galindo Gutierrez MD Work Phone: [facility] 05-13-2025 11:08-0400 Body weight [address] Galindo Gutierrez MD Work Phone: [facility] 08-20-2024 14:01-0400 Body height 162.6 cm Aubree Ireland MD Work Phone: [facility] 08-20-2024 14:01-0400 Diastolic blood pressure 78 mm[Hg] Aubree Ireland MD Work Phone: [facility] 08-20-2024 14:01-0400 Heart rate 84 /min Aubree Ireland MD Work Phone: [facility] 08-20-2024 14:01-0400 SaO2% (BldA) [Mass fraction] 97 % Aubree Ireland MD Work Phone: [facility] 08-20-2024 14:01-0400 Systolic blood pressure 132 mm[Hg] Aubree Ireland MD Work Phone: [facility] 09-23-2023 16:28-0500 SaO2% (BldA) [Mass fraction] 94 % TULIO ANTUNEZ MD~[id number] [facility] Comment on above: Performed By: #### [id number] #### [facility] [address] [place], [place] [address] [employer] [id number] Performed for [facility] [address] [place], [place] [address] 12-22-2021 10:37-0500 Body height 165.1 cm Félix Niko Niko CARE CONSULTANT-CEMETERY MANAGER Work Phone: [facility] 12-22-2021 10:37-0500 Body mass index (BMI) [Ratio] 32.78 kg/m2 [employer] CARE CONSULTANT-CEMETERY MANAGER Work Phone: [facility] 12-22-2021 10:37-0500 Body temperature 96.6 [degF] [employer] CARE CONSULTANT-CEMETERY MANAGER Work Phone: [facility] 12-22-2021 10:37-0500 Body weight 89.36 kg [employer] CARE CONSULTANT-CEMETERY MANAGER Work Phone: [facility] 04-08-2020 10:24-0400 BMI (Body Mass Index) 31.38 kg/m2 [facility] 04-08-2020 10:24-0400 Body Temperature 98.4 [degF] [facility] [employer] 04-08-2020 10:24-0400 Body weight 85.55 kg [facility] 04-08-2020 10:24-0400 BP Diastolic 64 mm[Hg] [facility] [employer] 04-08-2020 10:24-0400 BP Systolic 118 mm[Hg] [facility] [employer] 04-08-2020 10:24-0400 Height 165.1 cm [facility] 04-08-2020 10:24-0400 Pulse (Heart Rate) 70 /min [facility] 04-08-2020 10:24-0400 Pulse Oximetry 97 % [facility] 12-25-2019 10:11-0500 BMI (Body Mass Index) 29.54 kg/m2 [facility] 12-25-2019 10:11-0500 Body Temperature 98.8 [degF] [facility] 12-25-2019 10:11-0500 Body weight 83.01 kg [facility] 12-25-2019 10:11-0500 Height 167.6 cm [facility] 12-04-2019 11:05-0500 BMI (Body Mass Index) 30.45 kg/m2 [facility] 12-04-2019 11:05-0500 Body Temperature 98.1 [degF] [facility] 12-04-2019 11:05-0500 Body weight 83.01 kg [facility] 12-04-2019 11:05-0500 BP Diastolic 60 mm[Hg] [facility] 12-04-2019 11:05-0500 BP Systolic 92 mm[Hg] [facility] 12-04-2019 11:05-0500 Pulse (Heart Rate) 88 /min [facility] 12-04-2019 11:05-0500 Pulse Oximetry 98 % [facility] 12-04-2019 11:05-0500 Respiratory Rate 14 /min [facility] 08-14-2019 11:29-0400 BMI (Body Mass Index) 31.28 kg/m2 [facility] 08-14-2019 11:29-0400 Body Temperature 97.7 [degF] [facility] 08-14-2019 11:29-0400 Body weight 85.28 kg [facility] 08-14-2019 11:29-0400 BP Diastolic 60 mm[Hg] [facility] 08-14-2019 11:29-0400 BP Systolic 108 mm[Hg] [facility] 08-14-2019 11:29-0400 Pulse (Heart Rate) 64 /min [facility] 08-14-2019 11:29-0400 Pulse Oximetry 99 % [facility] 08-14-2019 11:29-0400 Respiratory Rate 14 /min [facility] 05-15-2019 11:44-0400 BMI (Body Mass Index) 30.45 kg/m2 [facility] 05-15-2019 11:44-0400 Body weight 83.01 kg [facility] 05-15-2019 11:44-0400 BP Diastolic 62 mm[Hg] [facility] 05-15-2019 11:44-0400 BP Systolic 94 mm[Hg] [facility] 05-15-2019 11:44-0400 Pulse (Heart Rate) 68 /min [facility] 05-15-2019 11:44-0400 Pulse Oximetry 99 % [facility] 05-15-2019 11:44-0400 Respiratory Rate 12 /min [facility] 04-18-2019 10:52-0400 BMI (Body Mass Index) 30.62 kg/m2 [facility] 04-18-2019 10:52-0400 Body Temperature 97.3 [degF] [facility] 04-18-2019 10:52-[address] [facility] 04-18-2019 10:52-[address] [facility] 04-03-2019 10:55-0400 BMI (Body Mass Index) 30.02 kg/m2 [facility] 04-03-2019 10:55-0400 Body Temperature 97.81 [degF] [facility] 04-03-2019 10:55-0400 Body weight 84.37 kg [facility] 04-03-2019 10:55-0400 BP Diastolic 66 mm[Hg] [facility] 04-03-2019 10:55-0400 BP Systolic 118 mm[Hg] [facility] 04-03-2019 10:55-0400 Pulse (Heart Rate) 78 /min [facility] 04-03-2019 10:55-0400 Pulse Oximetry 98 % [facility] 04-03-2019 10:55-0400 Respiratory Rate 14 /min [facility] 01-30-2019 10:09-0400 BMI (Body Mass Index) 30.02 kg/m2 [facility] 01-30-2019 10:09-0400 Body Temperature 97.7 [degF] [facility] 01-30-2019 10:09-0400 Pulse (Heart Rate) 58 /min [facility] 01-30-2019 10:09-0400 Pulse Oximetry 98 % [facility] 01-30-2019 10:09-0400 Respiratory Rate 14 /min [facility] 01-30-2019 10:09-0400 Weight 84.37 kg [facility] 01-16-2019 14:33-0400 BMI (Body Mass Index) 30.02 kg/m2 [facility] 01-16-2019 14:33-0400 Body Temperature 98.6 [degF] [facility] 01-16-2019 14:33-0400 BP Diastolic 62 mm[Hg] [facility] 01-16-2019 14:33-0400 BP Systolic 100 mm[Hg] [facility] 01-16-2019 14:33-0400 Pulse (Heart Rate) 90 /min [facility] 01-16-2019 14:33-0400 Pulse Oximetry 97 % [facility] 01-16-2019 14:33-0400 Respiratory Rate 12 /min [facility] 01-16-2019 14:33-0400 Weight 84.37 kg [facility] 01-16-2019 11:55-0400 BMI (Body Mass Index) 30.51 kg/m2 [facility] 01-16-2019 11:55-0400 Body Temperature 97.39 [degF] [facility] 01-16-2019 11:55-0400 Height 167.6 cm [facility] 01-16-2019 11:55-0400 Weight 85.73 kg [facility] 12-27-2018 14:39-0500 BMI (Body Mass Index) 30.51 kg/m2 [facility] 12-27-2018 14:39-0500 Body Temperature 97.11 [degF] [facility] 12-27-2018 14:39-0500 Height 167.6 cm [facility] 12-27-2018 14:39-0500 Weight 85.73 kg [facility] 12-26-2018 14:50-0500 BMI (Body Mass Index) 30.51 kg/m2 [facility] 12-26-2018 14:50-0500 Body Temperature 98.8 [degF] [facility] 12-26-2018 14:50-0500 Body weight 85.73 kg [facility] Comment on above: stated from Hospital 12-26-2018 14:50-0500 BP Diastolic 54 mm[Hg] [facility] 12-26-2018 14:50-0500 BP Systolic 96 mm[Hg] [facility] 12-26-2018 14:50-0500 Height 167.6 [facility] 12-26-2018 14:50-0500 Pulse (Heart Rate) 108 /min [facility] 12-26-2018 14:50-0500 Pulse Oximetry 98 % [facility] 12-26-2018 14:50-0500 Respiratory Rate 14 /min [facility] 12-17-2018 16:17-0500 Body Temperature 98.01 [degF] [facility] 12-17-2018 16:17-0500 BP Diastolic 61 mm[Hg] [facility] 12-17-2018 16:17-0500 BP Systolic 126 mm[Hg] [facility] 12-17-2018 16:17-0500 Pulse (Heart Rate) 55 /min [facility] 12-17-2018 16:17-0500 Pulse Oximetry 99 % [facility] 12-17-2018 16:17-0500 Respiratory Rate 14 /min [facility] 12-13-2018 18:00-0500 BMI (Body Mass Index) 30.51 kg/m2 [facility] 12-13-2018 18:00-0500 Height 167.6 cm [facility] 12-13-2018 18:00-0500 Weight 85.73 kg [facility] Encounters Encounter Date Encounter Type Care Provider Facility Start: 05-27-2025 End: 05-27-2025 Patient encounter procedure Allyson SOW -[facility] Work Phone: Start: 05-27-2025 End: 05-27-[address] Galindo Gutierrez MD Work Phone: -[facility] Start: 05-13-2025 ambulatory Galindo Gutierrez Facility:[facility] Start: 05-13-2025 Non-patient / Non-visit [facility] -[facility] Start: 05-13-2025 End: 05-13-2025 Admission to same day surgery [facility] DO -Endoscopy Work Phone: Start: 05-13-2025 End: 05-13-[address] Galindo Gutierrez MD Work Phone: -Endoscopy Start: 04-04-2025 Non-patient / Non-visit Dr. Freedom Collier MD -[facility] Start: 04-04-2025 End: 04-04-[address] Galindo Gutierrez MD Work Phone: [facility] Work Phone: Start: 04-04-2025 End: 04-04-[address] Galindo Gutierrez MD -Cardiovascular Services Work Phone: Start: 04-04-2025 End: 04-04-2025 ambulatory Galindo Gutierrez Facility:[facility] Start: 03-20-2025 End: 03-20-[address] Galindo Gutierrez MD Work Phone: [facility] Work Phone: Start: 03-20-2025 End: 03-20-2025 Patient encounter procedure Allyson SOW -Nuclear Medicine [facility] Work Phone: Start: 03-20-2025 End: 03-20-2025 ambulatory Allyson Barkley Facility:[facility] Start: 03-18-2025 End: 03-18-2025 Patient encounter procedure Allyson SOW -[facility] Work Phone: Start: 03-18-2025 End: 03-18-[address] Galindo Gutierrez MD Work Phone: [facility] Work Phone: Start: 03-17-2025 End: 03-17-2025 ambulatory GALINDO GUTIERREZ [facility] Start: 03-04-2025 End: 03-04-[address] Galindo Gutierrez MD Work Phone: [facility] Work Phone: Start: 03-04-2025 End: 03-04-2025 Patient encounter procedure Allyson Barkley CARE PARTNER-C -Laboratory Work Phone: Start: 03-04-2025 End: 03-04-2025 Patient encounter procedure Allyson Barkley CARE PARTNER-C -[facility] Work Phone: Start: 03-04-2025 End: 03-04-2025 ambulatory Allyson Filippo [place] Start: 03-04-2025 End: 03-04-2025 ambulatory Allyson Barkley Facility:[facility] Start: 11-14-2024 End: 11-14-2024 Admission to same day surgery center Billie Senthil COFFEY Work Phone: [facility] Comment on above: Liver lesion (Primar y Dx); Bilious vomiting with nausea; Gastric perforation (HCC) Start: 11-14-2024 End: 11-14-2024 Telemedicine consultation with patient Billie Joseph ERLINDA Work Phone: [facility] Start: 11-14-2024 End: 11-14-2024 ambulatory GALINDO GUTIERREZ Facility:[facility] Start: 11-04-2024 End: 11-04-2024 Subsequent hospital visit by physician [facility] ([facility]) Work Phone: Cat Scan Comment on above: Liver lesion [K76.9] Start: 11-04-2024 End: 11-04-2024 ambulatory AUBREE IRELAND Facility:[facility] Start: 10-29-2024 End: 10-29-2024 Orders Only Aubree Ireland MD Work Phone: [facility] Comment on above: Liver lesion (Primar y Dx) Start: 08-20-2024 End: 08-20-2024 Office outpatient visit 25 minutes Aubree Ireland MD Work Phone: [facility] Comment on above: Liver lesion (Primar y Dx); Diarrhea of presumed infectious origin Start: 08-20-2024 End: 08-20-2024 ambulatory AUBREE IRELAND Facility:[facility] Start: 08-13-2024 End: 08-13-2024 ambulatory AUBREE IRELAND Facility:[facility] Start: 08-13-2024 End: 08-13-2024 Subsequent hospital visit by physician [facility] (I-Stat) Work Phone: Cat Scan Comment on above: Acute pancreatitis, unspecified complication status, unspecified pancreatitis type [K85.90] Start: 08-01-2024 End: 08-01-2024 Orders Only Aubree Ireland MD Work Phone: [facility] Comment on above: Acute pancreatitis, unspecified complication status, unspecified pancreatitis type (Primary Dx) Start: 07-31-2024 End: 07-31-2024 Evaluation and management of inpatient YAYA MITCHELL CERVANTESMAN Facility:[facility] Start: 07-28-2024 Evaluation and management of inpatient Steven GALINDO MIREILLE Facility:[facility] Start: 07-28-2024 End: 07-28-2024 Emergency department patient visit Toribio Genaogreer Facility:[facility] Start: 07-09-2024 End: 07-09-2024 ambulatory [facility] Start: 07-02-2024 End: 07-02-2024 ambulatory [facility] Start: 05-26-2024 End: 05-26-2024 Emergency department patient visit BA LOVE [facility] Start: 09-23-2023 End: 09-25-2023 Evaluation and management of inpatient TULIO ANTUNEZ MD~[id number] Facility:[facility] Start: 12-21-2022 ambulatory GALINDO ZEPEDA [facility] Start: 12-22-2021 End: 12-22-2021 Office outpatient visit 15 minutes Galindo Zepeda MD Work Phone: [facility] Comment on above: Hx of total knee art hroplasty, right (Primary Dx) Start: 12-22-2021 End: 12-22-2021 Subsequent hospital visit by physician Félix Moulton CARE CONSULTANT-CEMETERY MANAGER Work Phone: [facility] Start: 12-24-2020 End: 12-24-2020 Subsequent hospital visit by physician Félix Moulton Work Phone: [facility] Start: 04-08-2020 End: 04-08-2020 Office outpatient visit 15 minutes Maximiliano A Ezike Work Phone: [facility] Comment on above: Joint infection (Mica jose e Dx) Start: 12-25-2019 End: 12-25-2019 Office outpatient visit 15 minutes Félix Moulton Work Phone: [facility] Comment on above: History of total kne e arthroplasty, right (Primary Dx) Start: 12-25-2019 End: 12-25-2019 Subsequent hospital visit by physician Félix Moulton Work Phone: [facility] Start: 12-04-2019 End: 12-04-2019 Office outpatient visit 15 minutes Maximiliano A Ezike Work Phone: [facility] Comment on above: Cellulitis of skin w ith lymphangitis (Primary Dx); Joint infection Start: 08-14-2019 End: 08-14-2019 Office outpatient visit 15 minutes Maximiliano A Ezike Work Phone: [facility] Comment on above: Joint infection (Mica jose e Dx) Start: 05-15-2019 End: 05-15-2019 Office outpatient visit 15 minutes Maximiliano A Ezike Work Phone: [facility] Comment on above: Cellulitis of skin w ith lymphangitis (Primary Dx); Joint infection Start: 04-18-2019 End: 04-18-2019 Office outpatient visit 15 minutes Galindo Zepeda Work Phone: [facility] Comment on above: 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) Start: 04-18-2019 End: 04-18-2019 Subsequent hospital visit by physician Galindo Zepeda Work Phone: [facility] Start: 04-03-2019 End: 04-03-2019 Office outpatient visit 15 minutes [employer] Work Phone: [facility] Comment on above: Cellulitis of skin w ith lymphangitis (Primary Dx) Start: 02-11-2019 End: 02-11-2019 Patient encounter procedure Historical Provider [facility] Start: 02-07-2019 End: 02-07-2019 Telephone encounter [employer] Work Phone: [facility] Infectious Disease Comment on above: Medication Reaction Start: 01-30-2019 End: 01-30-2019 Patient encounter procedure Historical Provider [facility] Start: 01-30-2019 End: 01-30-2019 Office outpatient visit 25 minutes [employer] Work Phone: [facility] Comment on above: Cellulitis of right lower extremity (Primary Dx) Start: 01-21-2019 End: 01-21-2019 Telephone encounter [employer] Work Phone: [facility] Infect[facility] Disease Comment on above: Order Request Start: 01-16-2019 End: 01-16-2019 Office outpatient visit 15 minutes [employer] Work Phone: [facility] Comment on above: Joint infection (Mica jose e Dx) Start: 01-16-2019 End: 01-16-2019 Postop follow up visit related to original px Félix Moulton Work Phone: [facility] Comment on above: 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) Start: 01-02-2019 End: 01-02-2019 Patient encounter procedure Historical Provider [facility] Start: 12-27-2018 End: 12-27-2018 Postop follow up visit related to original px Félix Moultno Work Phone: [facility] Comment on above: 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) Start: 12-27-2018 End: 12-27-2018 Patient encounter procedure Félix Moulton Work Phone: [facility] Start: 12-26-2018 End: 12-26-2018 Office outpatient visit 25 minutes Maximiliano Mayo Work Phone: [facility] Comment on above: Cellulitis of right lower extremity (Primary Dx); Joint infection Start: 12-24-2018 End: 12-24-2018 Patient encounter procedure Jordy Reneerakaniwona [facility] Comment on above: 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, initial encounter (Primary Dx) Start: 12-24-2018 End: 12-24-2018 Telephone encounter Patsy Rl [facility] Infectious Disease Comment on above: Referral (trying to determine if patient is a new referral.) Start: 12-19-2018 End: 12-19-2018 Patient encounter procedure Félix Moulton Work Phone: [facility] Comment on above: Acute postoperative pain of right knee Start: 12-14-2018 Notes/Results Only Galindo cota Work Phone: [facility] Start: 12-14-2018 End: 12-14-2018 Patient encounter procedure Galindo Zepeda Work Phone: [facility] Comment on above: 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 j oint, initial encounter (Primary Dx) Start: 12-13-2018 End: 12-17-2018 Evaluation and management of inpatient Darren Seifu Work Phone: [facility]urg Comment on above: Cellulitis Procedures Date Procedure Procedure Detail Performing Clinician Start: 05-13-[address] Galindo ochoa MD Work Phone: Start: 03-20-[address] emptying study [address] Galindo Gutierrez MD Work Phone: Start: 07-28-2024 Antibody screen AUBREE IRELAND Comment on above: Order Comment: Specimen Type: BLOOD SPEC IMEN Ordering Facility: [facility] Address: [address] [place] [address] Performed By: #### T SCR #### [facility] CLIA [id number] [address] [place] Start: 01-23-2019 LABS [...] everett Work Phone: Start: 12-14-2018 Standard ECG Jaryo Marquez Work Phone: Start: 12-14-2018 Natriuretic peptide [...] Author Start: 08-01-2027 Diabetes Screening Diabetes Screening [facility] Start: 05-13-2025 Endoscopy upper small intestine w/biopsy SMALL BOWEL ENDOSCOPY/BIOPSY [facility] Start: 05-13-2025 Patient discharge [facility] Start: 11-14-2024 End: 11-14-2024 Admission to same day surgery center 11/14/2024 2:00 PM EST [facility] [address] [facility] 3rd Floor [place] [id number] Billie Joseph PA-C [address] [place] [address] F/U CT (11/04) [facility] Comment on above: F/U CT (11/04) Start: 11-04-2024 End: 11-04-2024 Patient encounter procedure 11/04/2024 3:00 PM EST Appointment Cat Scan [address] [place] [address] Liver lesion [K76.9] [facility] Comment on above: Liver lesion [K76.9] Start: 10-30-2024 Advance Directive Discussion Advance Directive Discussion [facility] Start: 10-29-2024 End: 01-28-2025 CREATININE BLD CREATININE BLD Lab Routine Liver lesion Expected: 10/29/2024, Expires: 01/28/2025 [facility] Work Phone: Comment on above: Expected: 10/29/2024, Expires: Start: 08-20-2024 End: 08-20-2024 Patient encounter procedure [facility] Comment on above: F/U CT, hospital F/U CT (08/13), hosp ital Start: 08-13-2024 End: 08-13-2024 Patient encounter procedure 08/13/2024 3:00 PM EDT Appointment Cat Scan [address] [place] [address] Acute pancreatitis, unspecified complication status, unspecified pancreatitis type [K85.90] Cat Scan Comment on above: Acute pancreatitis, unspecified complica tion status, unspecified pancreatitis type [K85.90] Start: 06-30-2024 Influenza vaccination Influenza Vaccine (#1) [facility] Start: 10-30-2023 Advance Directive Discussion Advance Directive Discussion [facility] Start: 12-21-2022 End: 12-21-2022 Patient encounter procedure 12/21/2022 Office Visit Orthopaedics Galindo Zepeda MD [address] [place] [address] [facility] Start: 12-22-2021 End: 12-22-2021 Office Visit 12/22/2021 Office Visit Orthopaedics Félix Moulton APRN-CNP [address] [place] [address] [phone] [facility] Start: 02-27-2021 Covid-19 Vaccine (3 - Moderna risk series) Covid-19 Vaccine (3 - Moderna risk series) [facility] Start: 12-24-2020 End: 12-24-2020 Office Visit 12/24/2020 Office Visit Orthopaedics Félix Moulton, CARE CONSULTANT-CEMETERY MANAGER [address] [place] [address] [facility] Start: 06-30-2020 Influenza vaccination INFLUENZA VACCINE (#1) [facility] Start: 2020 Pneumococcal vaccination PNEUMOCOCCAL VACCINE SERIES (1 of 2 - PCV13) [facility] Start: 2020 Screening for osteoporosis Bone Density Screening [facility] Start: 04-08-2020 End: 04-08-2020 Office Visit 04/08/2020 Office Visit Infectious Diseases Maximiliano Mayo MD [address] [place] [address] [phone] [facility] Start: 12-25-2019 End: 12-25-2019 Office Visit 12/25/2019 Office Visit Orthopaedics Félix Moulton, CARE CONSULTANT-CEMETERY MANAGER [address] [place] [address] [phone] [facility] Start: 12-04-2019 End: 12-04-2020 Basic metabolic 2000 panel BASIC METABOLIC PANEL Lab Routine Cellulitis of skin with lymphangitis Expected: 12/04/2019, Expires: 12/04/2020 [facility] Comment on above: Expected: 12/04/2019, Expires: Start: 12-04-2019 End: 12-04-2020 CBC, EDIF, PLATELET CBC, EDIF, PLATELET Lab Routine Cellulitis of skin with lymphangitis Expected: 12/04/2019, Expires: 12/04/2020 [facility] Comment on above: Expected: 12/04/2019, Expires: Start: 12-04-2019 End: 12-04-2020 CRP [Mass/Vol] C REACTIVE PROTEIN Lab Routine Cellulitis of skin with lymphangitis Expected: 12/04/2019, Expires: 12/04/2020 [facility] Comment on above: Expected: 12/04/2019, Expires: Start: 12-04-2019 End: 12-04-2020 SEDIMENTATION RATE, AUTOMATED SEDIMENTATION RATE, AUTOMATED Lab Routine Cellulitis of skin with lymphangitis Expected: 12/04/2019, Expires: 12/04/2020 [employer] [facility] Comment on above: Expected: 12/04/2019, Expires: 1 Start: 12-04-2019 End: 12-04-2019 Office Visit 12/04/2019 Office Visit Infectious Diseases Maximiliano Mayo MD [address] [place] [address] [phone] [facility] Start: 08-14-2019 End: 08-14-2020 Basic metabolic 2000 panel BASIC METABOLIC PANEL Lab Routine Joint infection Expected: 08/14/2019, Expires: 08/14/2020 [facility] Comment on above: Expected: 08/14/2019, Expires: 0 Start: 08-14-2019 End: 08-14-2020 CBC, EDIF, PLATELET CBC, EDIF, PLATELET Lab Routine Joint infection Expected: 08/14/2019, Expires: 08/14/2020 [facility] Comment on above: Expected: 08/14/2019, Expires: 0 Start: 08-14-2019 End: 08-14-2020 CRP [Mass/Vol] C REACTIVE PROTEIN Lab Routine Joint infection Expected: 08/14/2019, Expires: 08/14/2020 [facility] Comment on above: Expected: 08/14/2019, Expires: 0 Start: 08-14-2019 End: 08-14-2020 SEDIMENTATION RATE, AUTOMATED SEDIMENTATION RATE, AUTOMATED Lab Routine Joint infection Expected: 08/14/2019, Expires: 08/14/2020 [facility] Comment on above: Expected: 08/14/2019, Expires: 0 Start: 08-14-2019 End: 08-14-2019 Office Visit 08/14/2019 Office Visit Infectious Diseases Maximiliano Mayo MD [address] [place] [address] [phone] [facility] Start: 06-30-2019 Influenza vaccination INFLUENZA VACCINE (#1) [facility] Start: 05-15-2019 End: 05-15-2020 Basic metabolic 2000 panel BASIC METABOLIC PANEL Lab Routine Cellulitis of skin with lymphangitis Joint infection Expected: 05/15/2019, Expires: 05/15/2020 [facility] Comment on above: Expected: 05/15/2019, Expires: 0 Start: 05-15-2019 End: 05-15-2020 CBC, EDIF, PLATELET CBC, EDIF, PLATELET Lab Routine Cellulitis of skin with lymphangitis Joint infection Expected: 05/15/2019, Expires: 05/15/2020 [facility] Comment on above: Expected: 05/15/2019, Expires: 0 Start: 05-15-2019 End: 05-15-2020 CRP [Mass/Vol] C REACTIVE PROTEIN Lab Routine Cellulitis of skin with lymphangitis Joint infection Expected: 05/15/2019, Expires: 05/15/2020 [facility] Comment on above: Expected: 05/15/2019, Expires: 0 Start: 05-15-2019 End: 05-15-2020 SEDIMENTATION RATE, AUTOMATED SEDIMENTATION RATE, AUTOMATED Lab Routine Cellulitis of skin with lymphangitis Joint infection Expected: 05/15/2019, Expires: 05/15/2020 [facility] Comment on above: Expected: 05/15/2019, Expires: 0 Start: 05-15-2019 End: 05-15-2019 Office Visit 05/15/2019 Office Visit Infectious Diseases Maximiliano Mayo MD [address] [place] [address] [phone] [facility] Start: 04-18-2019 End: 04-18-2019 Office Visit 04/18/2019 Office Visit Orthopaedics Galindo Zepeda MD [address] [place] [address] [phone] [facility] Start: 04-03-2019 End: 04-03-2020 Basic metabolic 2000 panel BASIC METABOLIC PANEL Lab Routine Cellulitis of skin with lymphangitis Expected: 04/03/2019, Expires: 04/03/2020 [facility] Comment on above: Expected: 04/03/2019, Expires: 0 Start: 04-03-2019 End: 04-03-2020 CBC, EDIF, PLATELET CBC, EDIF, PLATELET Lab Routine Cellulitis of skin with lymphangitis Expected: 04/03/2019, Expires: 04/03/2020 [facility] Comment on above: Expected: 04/03/2019, Expires: 0 Start: 04-03-2019 End: 04-03-2020 CRP [Mass/Vol] C REACTIVE PROTEIN Lab Routine Cellulitis of skin with lymphangitis Expected: 04/03/2019, Expires: 04/03/2020 [facility] Comment on above: Expected: 04/03/2019, Expires: 0 Start: 04-03-2019 End: 04-03-2020 SEDIMENTATION RATE, AUTOMATED SEDIMENTATION RATE, AUTOMATED Lab Routine Cellulitis of skin with lymphangitis Expected: 04/03/2019, Expires: 04/03/2020 [facility] Comment on above: Expected: 04/03/2019, Expires: 0 Start: 03-13-2019 End: 03-13-2019 Office Visit 03/13/2019 Office Visit Infectious Diseases Maximiliano Mayo MD [address] [place] [address] [phone] [facility] Start: 01-30-2019 End: 01-31-2020 Basic metabolic 2000 panel BASIC METABOLIC PANEL Lab Routine Cellulitis of right lower extremity Expected: 01/30/2019, Expires: 01/31/2020 [facility] Comment on above: Expected: 01/30/2019, Expires: 0 Start: 01-30-2019 End: 01-31-2020 CBC, EDIF, PLATELET CBC, EDIF, PLATELET Lab Routine Cellulitis of right lower extremity Expected: 01/30/2019, Expires: 01/31/2020 [facility] Comment on above: Expected: 01/30/2019, Expires: 0 Start: 01-30-2019 End: 01-31-2020 CRP mass conc C REACTIVE PROTEIN Lab Routine Cellulitis of right lower extremity Expected: 01/30/2019, Expires: 01/31/2020 [facility] Comment on above: Expected: 01/30/2019, Expires: 0 Start: 01-30-2019 End: 01-31-2020 SEDIMENTATION RATE, AUTOMATED SEDIMENTATION RATE, AUTOMATED Lab Routine Cellulitis of right lower extremity Expected: 01/30/2019, Expires: 01/31/2020 [facility] Comment on above: Expected: 01/30/2019, Expires: 0 Start: 01-30-2019 End: 01-30-2019 Office Visit 01/30/2019 Office Visit Infectious Diseases Maximiliano Mayo MD [address] [place] [address] [phone] [facility] Start: 01-16-2019 End: 01-16-2019 Office Visit 01/16/2019 Office Visit Infectious Diseases Maximiliano Mayo MD [address] [place] [address] [phone] [facility] Start: 01-16-2019 End: 01-16-2019 Office Visit 01/16/2019 Office Visit Orthopaedics Félix Moulton, CARE CONSULTANT-CEMETERY MANAGER [address] [place] [address] [phone] [facility] Start: 12-27-2018 End: 12-27-2018 Office Visit [facility] Start: 12-26-2018 End: 12-26-2018 Office Visit 12/26/2018 Office Visit Infectious Diseases Maximiliano Mayo MD [address] [place] [address] [phone] [facility] Start: 12-17-2018 Urine microalbumin profile DTaP,Tdap,Td Vaccine (1 - Tdap) [facility] Start: 12-14-2018 End: 01-11-2019 ACID FAST CULTURE ACID FAST CULTURE Microbiology Routine 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 joint, initial encounter Expected: 12/14/2018, Expires: 01/11/2019 Vitals ([email or web address]) [facility] Comment on above: Expected: 12/14/2018, Expires: 9 Start: 12-14-2018 End: 01-11-2019 BODY FLUID CULTURE AND DIRECT SMEAR BODY FLUID CULTURE AND DIRECT SMEAR Microbiology Routine 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 joint, initial encounter Expected: 12/14/2018, Expires: 01/11/2019 [employer] Comment on above: Expected: 12/14/2018, Expires: 9 Start: 12-14-2018 End: 01-11-2019 CRYSTALS, FLUID CRYSTALS, FLUID Fluids Routine 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 joint, initial encounter Expected: 12/14/2018, Expires: 01/11/2019 [employer] Comment on above: Expected: 12/14/2018, Expires: 9 Start: 12-14-2018 End: 01-11-2019 FUNGUS CULTURE FUNGUS CULTURE Microbiology Routine 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 joint, initial encounter Expected: 12/14/2018, Expires: 01/11/2019 [employer] Comment on above: Expected: 12/14/2018, Expires: 9 Start: 12-14-2018 End: 01-11-2019 GLUCOSE BODY FLUID GLUCOSE BODY FLUID Fluids Routine 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 joint, initial encounter Expected: 12/14/2018, Expires: 01/11/2019 [employer] Comment on above: Expected: 12/14/2018, Expires: 9 Start: 12-14-2018 End: 01-11-2019 SMEAR, GRAM STAIN SMEAR, GRAM STAIN Microbiology Routine 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 joint, initial encounter Expected: 12/14/2018, Expires: 01/11/2019 [employer] Comment on above: Expected: 12/14/2018, Expires: 9 Start: 12-14-2018 End: 01-11-2019 SYNOVIAL FLUID CELL COUNT SYNOVIAL FLUID CELL COUNT Fluids Routine 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 joint, initial encounter Expected: 12/14/2018, Expires: 01/11/2019 [employer] Comment on above: Expected: 12/14/2018, Expires: 9 Start: 09-28-2018 Pneumococcal Vaccine: 50+ (3 of 3 - PPSV23, PCV20 or PCV21) Pneumococcal Vaccine: 50+ (3 of 3 - PPSV23, PCV20 or PCV21) [facility] Start: 09-28-2018 Pneumococcal Vaccine: 65+ (3 of 3 - PPSV23 or PCV20) Pneumococcal Vaccine: 65+ (3 of 3 - PPSV23 or PCV20) [facility] Start: 2015 RSV Vaccine (1 - Risk 60-74 years 1-dose series) RSV Vaccine (1 - Risk 60-74 years 1-dose series) [facility] Start: 11-05-2013 Screening for malignant neoplasm of breast Mammogram Screening [facility] Start: 03-05-2009 Screening for malignant neoplasm of colon [facility] Start: 2005 Colonoscopy [facility] Start: 2005 Protein mass conc COLON CANCER SCREENING DISCUSSION [facility] Start: 2005 Screening for malignant neoplasm of lung Lung Cancer Screening [facility] Start: 2005 Zoster vaccine hzv live for subcutaneous use ZOSTER (SHINGLES) VACCINE (1 of 2) [facility] Start: 2000 Colonoscopy COLORECTAL CANCER SCREENING DISCUSSION [facility] Start: 2000 Lipid panel Lipid Screening [facility] Start: 2000 Screening for malignant neoplasm of colon [facility] Start: 1995 Fasting lipid profile LIPID SCREENING [facility] Start: 1995 Protein mass conc MAMMOGRAM SCREENING DISCUSSION [facility] Start: 1995 Screening mammography MAMMOGRAM SCREENING DISCUSSION [facility] Start: 1976 Screening for malignant neoplasm of cervix [facility] Start: 1974 Shingrix Vaccine (1 of 2) Shingrix Vaccine (1 of 2) [facility] Start: 1974 Third diphtheria, tetanus and acellular pertussis (DTaP) vaccination TDAP (ADULT) [facility] Start: 1973 Anxiety Screening Anxiety Screening [facility] Start: 1973 Depression Screening Depression Screening [facility] Start: 1973 Hepatitis C screening Hepatitis C Screening [facility] Start: 1973 Tetanus vaccination TETANUS [facility] Start: 1971 COVID-19 VACCINE (1 of 2) COVID-19 VACCINE (1 of 2) [facility] Start: 1968 HIV screening HIV SCREENING DISCUSSION [facility] Start: 1966 Screening for malignant neoplasm of cervix Cervical Cancer Screening [facility] Start: 1961 Pneumococcal vaccination PNEUMOCOCCAL VACCINE SERIES (1 of 2 - PPSV23) [facility] Start: 1960 COVID-19 VACCINE (1) COVID-19 VACCINE (1) [facility] Start: 1955 Hepatitis C antibody, confirmatory test HEPATITIS C VIRUS SCREENING [facility] Start: 1955 Screening for osteoporosis DEXA SCAN DISCUSSION [facility] Start: 1955 Thyroid stimulating hormone measurement TSH [facility] Start: 1955 Thyrotropin Qn TSH [facility] HEALT H BODY FLUID CELL COUNT BODY FLUID CELL COUNT Fluids Routine 12/14/2018 8:30 AM EST [employer] [facility] BODY FLUID CULTURE A ND DIRECT SMEAR BODY FLUID CULTURE AND DIRECT SMEAR Microbiology Routine 12/14/2018 8:30 AM [facility] CBC, EDIF, PLATELET CBC, EDIF, P LATELET Lab Routine Every morning Lab until discontinued starting 12/14/2018, 4 completed [facility] ([email or web address]) [facility] Comment on above: Every morning Lab until discontinued sta rting 12/14/2018, 4 completed Clostridioides diffi cile toxin genes [Presence] in Stool by GUS with probe detection C. DIFFICILE PCR Lab Routine Diarrhea of presumed infectious origin Ordered: 08/20/2024 [facility] Comment on above: Ordered: 08/20/2024 CRYSTALS, FLUID CRYSTALS, FLUID Fluids Routine 12/14/2018 8:30 AM [facility] End: 09-19-2025 CT Liver W contrast IV CT LIVER W IVCON Radiology Routine Liver lesion 1 Occurrences starting 08/20/2024 until 09/19/2025 [facility] Comment on above: 1 Occurrences starting 08/20/2024 until 09/19/2025 CT Liver W contrast IV CT LIVER W IVCON Radiology Routine Liver lesion 11/04/2024 3:22 PM EST [facility] Work Phone: End: 08-31-2025 CT Pancreas W contrast IV CT PANCREAS W IVCON Radiology Routine Acute pancreatitis, unspecified complication status, unspecified pancreatitis type 1 Occurrences starting 08/01/2024 until 08/31/2025 [facility] Work Phone: Comment on above: 1 Occurrences starting 08/01/2024 until 08/31/2025 CT Pancreas W contrast IV CT [place] [facility] W IVCON Radiology Routine Acute pancreatitis, unspecified complication status, unspecified pancreatitis type 08/13/2024 3:40 PM EDT [facility] Work Phone: DIFFERENTIAL, FLUID DIFFERENTIAL , FLUID Fluids Routine 12/14/2018 8:30 AM [facility] FUNGUS CULTURE [employer] GLUCOSE BODY FLUID GLUCOSE BODY FLUID Fluids Routine 12/14/2018 8:30 AM EST [employer] End: 09-19-2025 MR Liver WO and W contrast IV MRI LIVER WO/W IVCON Radiology Routine Liver lesion 1 Occurrences starting 08/20/2024 until 09/19/2025 [facility] Work Phone: Comment on above: 1 Occurrences starting 08/20/2024 until 09/19/2025 Patient referral [facility] Work Phone: End: 12-17-2018 PICC LINE PLACEMENT/REMOVAL PICC LINE PLACEMENT/REMOVAL Procedures Routine One Time for 1 Occurrences starting 12/17/2018 until 12/17/2018 [employer] Comment on above: One Time for 1 Occurrences starting 11/30 until 12/17/2018 PROTIME-INR PROTIME-INR Lab Routine Every morning Lab until discontinued starting 12/15/2018, 3 completed [employer] Comment on above: Every morning Lab until discontinued sta rting 12/15/2018, 3 completed Radiography for bone length studies XR BONE LENGTH STUDY Imaging Routine History of revision of total replacement of right knee joint 04/18/2019 10:40 AM EDT [employer] Radionuclide gastric emptying study [facility] RENAL FUNCTION PANEL RENAL FUNCT ION PANEL Lab Routine Every morning Lab until discontinued starting 12/14/2018, 4 completed [employer] Comment on above: Every morning Lab until discontinued sta rting 12/14/2018, 4 completed TISSUE CULTURE [employer] End: 12-14-2018 Transthoracic echocardiography ECHOCARDIOGRAM Echocardiography STAT One Time for 1 Occurrences starting 12/14/2018 until 12/14/2018 [employer] Comment on above: One Time for 1 Occurrences starting 11/30 until 12/14/2018 Transthoracic echocardiography ECHOCARDIOGRAM Echocardiography STAT 12/14/2018 11:04 AM [facility] TYPE AND SCREEN - POSSIBLE TRANSFUSION TYPE AND SCREEN - POSSIBLE TRANSFUSION Blood Bank Today 12/14/2018 10:42 AM [facility] X-ray of right knee JONATHON ASTUDILLO Comment on above: Ordered: 01/04/2019 X-ray of right knee XR KNEE RIGH T 3 VIEWS Imaging Routine Hx of total knee arthroplasty, right 12/22/2021 10:36 AM [facility] Immunizations Immunization Date Immunization Notes Care Provider Fa [facility] 10-09-2023 influenza virus vaccine, unspecified formulation Aubree Ireland MD Work Phone: [facility] 08-03-2018 influenza virus vaccine, unspecified formulation [facility] Payers Date Payer Category Payer Self-pay 2024 Medicare HUMANA MEDICARE HU[employer]NA MEDICARE PPO [id number] 2024-Present [phone] [address] [place] [address] PPO [id number] 2016 Medicaid MEDICAID MEDICAI D xxxxxxxxxxxx 2016-Present xxxxxxxxxxxx [id number] 2016 Medicaid [id number] .[id number] 2015 Medicare xxxxxxxxx [id number] .[id number] 2015 Medicare [id number] [id number] .[id number] 2012 Medicaid [id number]. 1.13.159.2.7.3 .[id number] 2012 Medicare [id number] 2011 Medicare [id number] 1959 Medicaid [id number] 1955 Unknown [id number] 2.16.840.1.799762.3.579.2.983 1955 Unknown [id number] 2.16.840.1.532048.3.579.2.983 1955 Unknown [id number] 2.16.840.1.780719.3.579.2.419 1955 Unknown [id number] 2.16.840.1.594088.3.579.2.651 1955 Unknown [id number] 2.16.840.1.549894.3.579.2.651 1955 Unknown [id number] 2.16.840.1.187196.3.579.2.651 1955 Unknown [id number] 2.16.840.1.169843.3.579.2.651 Unknown [id number] 2.16.840.1.395739.3.579.2.462 Unknown [id number] 2.16.840.1.937184.3.579.2.462 Unknown [id number] 2.16.840.1.301083.3.579.2.462 Unknown [id number] 2.16.840.1.837938.3.579.2.462 Unknown [id number] 2.16.840.1.200140.3.579.2.462 Unknown [id number] 2.16.840.1.181102.3.579.2.462 Unknown [id number] 2.16.840.1.902545.3.579.2.462 Unknown [id number] 2.16.840.1.157644.3.579.2.462 Unknown [id number] 2.16.840.1.891390.3.579.2.462 Unknown [id number] 2.16.840.1.342600.3.579.2.462 Social History Date Type Detail Facility Start: 12-13-2018 End: 05-13-2025 Tobacco smoking status MAIS Current every day smoker [facility] Start: 01-11-1968 History of tobacco use Cigarette Smoker [facility] Start: 12-13-2018 End: 07-29-2024 Cigarettes smoked current (pack per day) - Reported [facility] History of tobacco use Snuff User [facility] Start: 1955 Sex Assigned At Not on file A JAYY [facility] Start: 08-14-2019 End: 07-29-2024 Alcohol intake No [facility] Start: 12-04-2019 End: 08-20-2024 Alcohol intake Current non-drinker of alcohol (finding) [facility] Start: 01-10-2018 End: 12-25-2019 Tobacco use and exposure Never used [employer] [facility] Exposure to SARS-CoV-2 (event) Not sure [employer] [facility] National Score (1-100), lower number is lower risk 55 [facility] Start: 1955 Sex assigned at Female C [facility] Start: 07-29-2024 Gender identity Identifies as female gender (finding) [facility] NEGATED: Highlighted row Not [facility] Medical Equipment Procedure Code Equipment Code Equipment Origin al Text Equipment Identifier Dates Tibial Insert Re f Start: 12-14-2018 Comment on above: Description: Ref 96-0512 Lot [id number] tivial insert Fixed bearing TCS Size 2 15mm Tibial Insert Re f Start: 12-14-2018 Comment on above: Description: Ref 96-0512 Lot [id number] tivial insert Fixed bearing TCS Size 2 15mm Tibial Insert Re f Start: 12-14-2018 Comment on above: Description: Ref 96-0512 Lot [id number] tivial insert Fixed bearing TCS Size 2 15mm Tibial Insert Re f Start: 12-14-2018 Comment on above: Description: Ref 96-0512 Lot [id number] tivial insert Fixed bearing TCS Size 2 15mm Tibial Insert Re f Start: 12-14-2018 Comment on above: Description: Ref 96-0512 Lot [id number] tivial insert Fixed bearing TCS Size 2 15mm Tibial Insert Re f Start: 12-14-2018 Comment on above: Description: Ref 96-0512 Lot [id number] tivial insert Fixed bearing TCS Size 2 15mm Tibial Insert Re f Start: 12-14-2018 Comment on above: Description: Ref 96-0512 Lot [id number] tivial insert Fixed bearing TCS Size 2 15mm Tibial Insert Re f Start: 12-14-2018 Comment on above: Description: Ref 96-0512 Lot [id number] tivial insert Fixed bearing TCS Size 2 15mm Tibial Insert Re f Start: 12-14-2018 Comment on above: Description: Ref 96-0512 Lot [id number] tivial insert Fixed bearing TCS Size 2 15mm Tibial Insert Re f Start: 12-14-2018 Comment on above: Description: Ref 96-0512 Lot [id number] tivial insert Fixed bearing TCS Size 2 15mm Tibial Insert Re f Start: 12-14-2018 Comment on above: Description: Ref 96-0512 Lot [id number] tivial insert Fixed bearing TCS Size 2 15mm Tibial Insert Re Start: 12-14-2018 Comment on above: Description: Ref 96-0512 Lot [id number] tivial insert Fixed bearing TCS Size 2 15mm Tibial Insert Re f Start: 12-14-2018 Comment on above: Description: Ref 96-12 Lot [id number] tivial insert Fixed bearing TCS Size 2 15mm Tibial Insert Re Start: 12-14-2018 Comment on above: Description: Ref 96-0512 Lot [id number] tivial insert Fixed bearing TCS Size 2 15mm Tibial Insert Re Start: 12-14-2018 Comment on above: Description: Ref 96-0512 Lot [id number] tivial insert Fixed bearing TCS Size 2 15mm Tibial Insert Re Start: 12-14-2018 Comment on above: Description: Ref 96-0512 Lot [id number] tivial insert Fixed bearing TCS Size 2 15mm Tibial Insert Re Start: 12-14-2018 Comment on above: Description: Ref 96-0512 Lot [id number] tivial insert Fixed bearing TCS Size 2 15mm Tibial Insert Re Start: 12-14-2018 Comment on above: Description: Ref 96-0512 Lot [id number] tivial insert Fixed bearing TCS Size 2 15mm Tibial Insert Re Start: 12-14-2018 Comment on above: Description: Ref 96-0512 Lot [id number] tivial insert Fixed bearing TCS Size 2 15mm Tibial Insert Re Start: 12-14-2018 Comment on above: Description: Ref 96-0512 Lot [id number] tivial insert Fixed bearing TCS Size 2 15mm Tibial Insert Re Start: 12-14-2018 Comment on above: Description: Ref 96-0512 Lot [id number] tivial insert Fixed bearing TCS Size 2 15mm Tibial Insert Re Start: 12-14-2018 Comment on above: Description: Ref 96-0512 Lot [id number] tivial insert Fixed bearing TCS Size 2 15mm Tibial Insert Re f Start: 12-14-2018 Comment on above: Description: Ref 96-0512 Lot [id number] tivial insert Fixed bearing TCS Size 2 15mm Tibial Insert Re f Start: 12-14-2018 Comment on above: Description: Ref 96-0512 Lot [id number] tivial insert Fixed bearing TCS Size 2 15mm Tibial Insert Re f Start: 12-14-2018 Comment on above: Description: Ref 96-0512 Lot [id number] tivial insert Fixed bearing TCS Size 2 15mm Tibial Insert Re f Start: 12-14-2018 Comment on above: Description: Ref 96-0512 Lot [id number] tivial insert Fixed bearing TCS Size 2 15mm Tibial Insert Re Start: 12-14-2018 Comment on above: Description: Ref 96-0512 Lot [id number] tivial insert Fixed bearing TCS Size 2 15mm Tibial Insert Re Start: 12-14-2018 Comment on above: Description: Ref 96-0512 Lot [id number] tivial insert Fixed bearing TCS Size 2 15mm Tibial Insert Re 511 [id number] Start: 12-14-2018 Comment on above: Description: Ref Renuka- 0512 Lot [id number] tivial insert Fixed bearing TCS Size 2 15mm Tibial Insert Re Start: 12-14-2018 Comment on above: Description: Ref 96-0512 Lot [id number] tivial insert Fixed bearing TCS Size 2 15mm Tibial Insert Re Start: 12-14-2018 Comment on above: Description: Ref 96-0512 Lot [id number] tivial insert Fixed bearing TCS Size 2 15mm Goals Date Patient Goal Desired Activity /State Mental Status Date Assessment Result Facility 05-13-2025 Cognitive function Voice/Name [facility] Work Phone: Clinical Notes 12-22-2021 to 05-13-2025 Note Date & Type Note Facility 05-13-2025 Consult note [facility] 05-13-2025 History and physical note Note Date/Time May 13, 2025 12:16pm [facility] Medical Records Department [address] [place] [address] History & Physical Exam 05/13/25 1214 MR#: [id number] Acct: [id number] Name: AMNA SEQUEIRA Rep #:[id number] : 1955 70 From: Noe Wright DO PCP: Dr. Galindo Gutierrez MD Status:REG SD C Location: [place] [address] HPI - General General Date of Admission: [...] 30minutes before eating x2wks * office FU [facility] Medical History History of stress test Wears [...] Status: Acute (2) Nausea: Status: Acute Plan MANA SEQUEIRA, is a 69 F who [facility] today [facility] and [facility] before [...] Galindo Gutierrez MD; Noe Wright DO~ Signed [facility] Work Phone: 1(308) 680-796907-15-2025 Consult note [facility] Note Date/Time May 13, 2025 12:0 4pm [facility] Medical Records Department [address] [place] [address] Pre-Anesthesia Evaluation 05/13/25 1154 MR#: [id number] Acct: [id number] Name: AMNA SEQUEIRA Rep #:[id number] : 1955 70 From: Doe Constantino MD PCP: Dr. 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 Female Yes 05/12/25 08:53 HX of Motion [...] 05/13/25 11:08 Respiratory Assessment Respiratory Assessment - international flight attendant: Respiratory Tract Infection Hx - international flight attendant Hx Respiratory Tract Infection No 05/12/25 08:53 STOP Sleep Apnea STOP Sleep Apnea - international flight attendant: STOP Sleep Apnea - international flight attendant Hx Hypertension No 05/12/25 08:53 Hx Sleep [...] Tobacco Use History Tobacco Use History - international flight attendant: Tobacco Use History - international flight attendant Tobacco Use Smoking Status Current every day smoker 05/12/25 08:53 Hx Tobacco Use No 05/12/25 08:53 Years Smoking Packs Smoked per Day Smoking Cessation Date was within the last 15 years Hx Smoking Cessation Date Hx Smoking Cessation Counseling Any additional information?: Yes Smoking Status: Current every day smoker (Patient smoked today.) Hematologic Medial History Hematologic Hx - international 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 Specify any problems Hx of Preganancy in last 3 No 05/12/25 08:53 Months Nurse Filling Out Transfusion [facility] 05/12/25 08:53 & Questions: Date: 05/12/25 05/12/25 08:53 Time: 09:06 05/12/25 08:53 Patient unable to answer at this time (ie. confused, unrespo /Reproduction History /Reproductive History - international flight attendant: /Reproductive Hx- international flight attendant Hx Now No 05/12/25 08:53 Gestational Age [...] MD Cosigner Signature: Date CC: ~ Signed [facility] Work Phone: 1(230) 452-895807-15-2025 Procedure note [facility] Medical Records Department [address] [place] [address] EGD Report MR#: [id number] Acct: [id number] Name: AMNA SEQUEIRA Rep #:[id number] : 1955 70 From: Noe Wright DO [...] pathology results. Procedure Code(s): --- Professional --- 11449, Small intestinal endoscopy, enteroscopy beyond second portion of duodenum, not including ileum; with biopsy, single or multiple CPT copyright 2021 [employer]. All rights reserved. The codes documented in this report are preliminary and upon mixing tank operator review may be revised to meet current compliance requirements. Noe Wright DO 05/13/2025 12:58:49 PM This report has been signed electronically. Number of Addenda: 0 Note Initiated On: 05/13/2025 12:37 PM 05/13/25 1258 Date _ Noe Wright DO Cosigner Signature: Date (if indicated) CC: Dr. Galindo Gutierrez MD; Noe Wright DO ~ Date Dictated: 05/13/25 1237 Date Transcribed: [employer] Programs Director: RF Signed [facility]07-15-2025 Procedure note [facility] Medical Records Department [address] [place] [address] Operative Report - CC Letter MR#: [id number] Acct: [id number] Name: AMNA SEQUEIRA Rep #:[id number] : 1955 70 From: Noe Wright DO [...] ~ Date Dictated: 05/13/25 1237 Date Transcribed: [employer] Director: RF Signed [facility]07-15-2025 History and physical note [facility] Medical Records Department [address] [facility] [place] [address] History & Physical Exam 05/13/25 1214 MR#: [id number] Acct: [id number] Name: AMNA SEQUEIRA Rep #:[id number] : 1955 70 From: Noe Wright DO PCP: Dr. Galindo Gutierrez MD Status:REG SD C Location: [place] [address] HPI - General General Date of Admission: [...] 30minutes before eating x2wks * office FU [facility] Medical History History of stress test Wears [...] presents [facility] the [facility] and abdominal pain before [...] Galindo Gutierrez MD; Noe Wright DO~ Signed [facility]07-15-2025 [facility] Medical Records Department [address] [place] [address] History Physical Exam 05/13/25 1214 MR#: [id number] Acct: [id number] Name: AMNA SEQUEIRA Rep #: [id number] : 1955 70 From: Noe Wright DO PCP: Dr. Galindo Gutierrez MD Status:[facility] Location: [place] [address] HPI - General General Date of Admission: [...] 30minutes before eating x2wks * office FU [facility] Medical History History of stress test Wears [...] Date / Time Sul (more content not included)...[facility]07-15-2025 Consult note [facility] Medical Records Department [address] [place] [address] Pre-Anesthesia Evaluation 05/13/25 1154 MR#: [id number] Acct: [id number] Name: AMNA SEQUEIRA Rep #:[id number] : 1955 70 From: Doe Constantino MD PCP: Dr. 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 Female Yes 05/12/25 08:53 HX of Motion [...] 05/13/25 11:08 Respiratory Assessment Respiratory Assessment - international flight attendant: Respiratory Tract Infection Hx - international flight attendant Hx Respiratory Tract Infection No 05/12/25 08:53 STOP Sleep Apnea STOP Sleep Apnea - international flight attendant: STOP Sleep Apnea - international flight attendant Hx Hypertension No 05/12/25 08:53 Hx Sleep [...] Tobacco Use History Tobacco Use History - international flight attendant: Tobacco Use History - international 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 attendant Tobacco Use Smoking Status Current every day smoker 05/12/25 08:53 Hx Tobacco Use No 05/12/25 08:53 Years Smoking Packs Smoked per Day Smoking Cessation Date was within the last 15 years Hx Smoking Cessation Date Hx Smoking Cessation Counseling Any additional information?: Yes Smoking Status: Current every day smoker (Patient smoked today.) Hematologic Medial History Hematologic Hx - international 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 Specify any problems Hx of Preganancy in last 3 No 05/12/25 08:53 Months [facility] 05/12/25 08:53 & Questions: Date: 05/12/25 05/12/25 08:53 Time: 09:06 05/12/25 08:53 Patient unable to answer at this time (ie. confused, unrespo /Reproduction History /Reproductive History - international flight attendant: /Reproductive Hx- international flight attendant Hx Now No 05/12/25 08:53 Gestational Age (in weeks): EDC: Hx Hx Para Hx Section SAB No 05/12/25 08:53 Active Medications Active Medications: Current Medications Generic Name Dose Route Start Last Admin Trade Name Freq PRN Reason Stop Dose Admin Lactated Ringer's 1,000 mls @ 15 mls/hr 05/13/25 10:45 [facility] History History of stress test [...] MD Cosigner Signature: Date CC: ~ Signed [facility]05-22-2025 Nuclear medicine Diagnostic study note [facility] Imaging Services [address] [place] [address] Gastric Emptying Study MR#: [id number] Acct: [id number] Name: AMNA SEQUEIRA Rep #: [id number] : 1955 F 69 From: Yimi Coto MD PCP: Dr. Galindo Gutierrez MD Status: REG CL I Study:Gastric Emptying Study Date of Exam: 03/20/25 Exam# [id number] Ordering Dr: Hakan Barkley PROCEDURE: GASTRIC EMPTYING [...] geometric mean was used to calculate a [id number]. RADIOPHARMACEUTICAL: Sulfur colloid DOSE 1.2mCi FINDINGS: Percent activity remaining in stomach: 1 hour 62% % (normal 37-90%) NM/Gastric Emptying Study IMPRESSION: Normal gastric emptying examination. Reading Location: [place] [address] CC: MAGI Barkley; Dr. Galindo Gutierrez MD ~ [employer] Director: Signed [facility]2025 Evaluation note* Diagnosis Onset Date Resolution Status Admit Date Early satiety acute March 04 9:33am Nausea acute March 04, 2025 9:33am Pancreatic insufficiency acute March 04, 2025 9:33am [facility] Work Phone: 1(316) 595-894005-06-2025 Evaluation note* Diagnosis Onset Date Resolution Status Admit Date Early satiety acute March 04 9:33am Nausea acute March 04, 2025 9:33am Pancreatic insufficiency acute March 04, 2025 9:33am Early satiety acute March 18, 2 025 9:04am Nausea acute March 18, 2025 9:04am [facility] Work Phone: 1(112) 290-664205-06-2025 Evaluation note* Diagnosis Onset Date Resolution Status Admit Date Early satiety acute March 04 9:33am Nausea acute March 04, 2025 9:33am Pancreatic insufficiency acute March 04, 2025 9:33am Early satiety acute March 18, 2 025 9:04am Nausea acute March 18, 2025 9:04am Early satiety acute May 13, 2025 10:24am Nausea acute May 13 10:24am [facility] Work Phone: 1(208) 374-580701-20-2025 Note* Addendum Note - Billie Joseph PA-C - 11/18/2024 3:08 PM ESTAddended by: BILLIE JOSEPH on: 11/18/2024 03:08 PM Modules accepted: Orders [facility]01-20-2025 Miscellaneous Notes* Addendum Note - Billie Joseph PA-C - 11/18/2024 3:08 PM ESTAddended by: BILLIE JOSEPH on: 11/18/2024 03:08 PM Modules accepted: [facility] NoteHNO ID: [id number] Author: BILLIE JOSEPH PA-C Service: ? Author Type: Physician Access Rep Type: Progress Notes Filed: 11/18/2024 15:07 Note Text: Billie Joseph PA-C Surgical Oncology [address] [facility], [address] [place] [phone] VIRTUAL VISIT PROGRESS NOTE This is a virtual visit using [employer] Video Visit. It required patient-provider interaction for the medical decision making as documented below. I have communicated my name and active licensure. The patient's identity and physical location were verified at the time of this visit. Either the patient or their legal employer relations representative has been informed of the risks [...] and appropri (more content not included)...[facility]01-16-2025 History of Present illness Narrative* Billie Joseph PA-C - 11/14/2024 2:32 PM EST Images from the original note were not included. Billie Joseph PA-C Surgical Oncology [address] [facility], [address] [place] [address] VIRTUAL VISIT PROGRESS NOTE This is a virtual visit using Asthmatracker Zoom Video Visit. It required patient- provider interaction for the medical decision making as documented below. I have communicated my name and active licensure. The patient's identity and physical location wereverified at the time of this visit. Either the patient or their legal employer relations representative has been informed of the risks [...] which included preparing to see the patient, [id number] patient care, completing clinical documentation, performing a medically appropriate examination, counseling and educating the patient/family/caregiver, and communicating results to the patient/family/caregiver Billie Joseph PA-C documented [facility]Way[facility] History of Present illness Narrative* Amanda Pichardo, [...] PATIENT PRESENTS WITH AN IMPLANTABLE OR ATTACHED FAMILY SERVICE WORKER: No ALLERGIES: Reviewed and unchanged CONTRAST ALLERGY: [...] 2024 TIME: 4:02 PM documented in this encounterWayne Hospital01-06-2025 NoteHNO ID: [id number] Author: AMANDA PICHARDO RT(R) Service: ? Author Type: Horn Player Type: Progress Notes Filed: 11/04/2024 16:03 Note [...] PATIENT PRESENTS WITH AN IMPLANTABLE OR ATTACHED FAMILY SERVICE WORKER: No ALLERGIES: Reviewed and unchanged CONTRAST ALLERGY: [...] Sequeira DATE: November 04, 2024 TIME: 4:02 [facility]10-22-2024 Note* Addendum Note - Aubree Ireland MD - 08/20/2024 2:49 PM EDTAddended by: AUBREE IRELAND on: 08/20/2024 02:49 PM Modules accepted: Orders [facility]10-22-[facility] Miscellaneous Notes* Addendum Note - Aubree Ireland MD - 08/20/2024 2:49 PM EDTAddended by: AUBREE IRELAND on: 08/20/2024 02:49 PM Modules accepted: Orders documented in this encounterWayne Hospital10-22-2024 NoteHNO ID: [id number] Author: AUBREE IRELAND MD Service: ? Author [...] for her RA Luisa Ireland MD HPB [facility]10-22-2024 History of Present illness Narrative* Aubree Ireland [...] Ireland MD HPB Surgeon documented in this encounterWayne Hospital10-15-2024 History of Present illness Narrative* Amanda Pichardo, [...] PATIENT PRESENTS WITH AN IMPLANTABLE OR ATTACHED FAMILY SERVICE WORKER: No ALLERGIES: Reviewed and unchanged CONTRAST ALLERGY: [...] 2024 TIME: 3:53 PM documented in this encounterWayne Hospital10-15-2024 NoteHNO ID: [id number] Author: AMANDA PICHARDO RT(R) Service: ? Author Type: Horn Player Type: Progress Notes Filed: 08/13/2024 15:53 Note [...] PATIENT PRESENTS WITH AN IMPLANTABLE OR ATTACHED FAMILY SERVICE WORKER: No ALLERGIES: Reviewed and unchanged CONTRAST ALLERGY: [...] Sequeira DATE: August 13, 2024 TIME: 3:53 [facility]10-03-2024 NoteHNO ID: [id number] Author: BILLIE URIARTE RN Service: Care Management Author Type: Registered Nurse Type: Care Mgt Progress Note Filed: 08/01/2024 15:46 Note Text: CARE MANAGEMENT DISCHARGE NOTE SERVICE DATE: August 01, 2024 SERVICE TIME: 3:41 PM Admission Date: 07/28/2024 LOS: 4 days Discharge Arrangement Discharge Arrangement: Home with Home Health Services Arranged Medical Services: Skilled Home Health Care Type: Home Health Agency, Intermediate, Physical Therapy, Occupational Therapy Provider Name: [facility] Caregiver Assessment Caregiver is ready, willing and [...] Handoff to: Other Caregiver Other Caregiver Name/Phone: [facility]/ Bedside RN Additional Information: Discharge Information Row Name ED to Hosp-Admission (Current) from 07/28/[address] [facility] Home Health Care Agency [facility] Spoke with patient and patient's daughter Fransisca. Discharge today. Discharge orders complete. Patient declines need for placement and has elected to return home at discharge with skilled home health care/ home therapy services. Patient is agreeable to us arranging [facility] through a provider that can take her insurance. No preference. [facility] notified and is able to accept. [facility] aware of discharge home today. Physician order placed for home care services: Yes. Start of care date: [facility] will reach out to patient to confirm start of care date. Patient/Family agreeable to discharge plan: Yes. SIGNATURE: Billie Uriarte RN PATIENT NAME: Amna Sequeira DATE: August 01, 2024 TIME: 3:41 PM CONTACT #: [id number] [facility] NoteHNO ID: [id number] Author: AUBREE IRELAND MD Service: General Surgery Author Type: Physician Type: Progress Notes Filed: 08/01/2024 15:02 Note Text: Documentation Query Please clarify the Status of Pancreatic Fistula. Diagnosis Ruled Out this encounter This document will become part of the patient's medical record.[facility]10-03-2024 NoteHNO ID: [id number] Author: AUBREE IRELAND MD Service: General Surgery Author Type: Physician Type: Progress Notes Filed: 08/01/2024 14:45 Note Text: Documentation Query Please clarify the Degree of Protein-Calorie Malnutrition (PCM) with the above clinical indicators. Moderate Protein-Calorie Malnutrition is the current diagnosis, Severe Protein-Calorie Malnutrition Ruled Out This document will become part of the patient's medical record.[facility]10-03-2024 NoteHNO ID: [id number] Author: BELEN MENARD APRN.CNP Service: Gastroenterology Author [...] GI in OP setting - can call [phone] to make an appointment with [facility] [facility] or can call [phone] for [facility]. GI attending, Dr. Howard GI will sign off. Please contact if there are any questions, concerns, or changes in clinical status.[facility]10-03-2024 NoteHNO ID: [id number] Author: OSVALDO SEGURA MD Service: Pain Management [...] DVTs on Coumadin, hypothyroidism transferred 07/28 from [place] with nausea, emesis, anorexia, 30 pound weight [...] Patient is followed by Dr. Simon in [place] for chronic pain management. Home pain regimen [...] at 10 (more content not included)...[facility]10-03-2024 NoteHNO ID: [id number] Author: AUBREE IRELAND MD Service: General Surgery [...] questions or concerns Mon-Fri 6a-5p please page [phone]. After 5pm and on Weekends and Holidays, please page [phone] if in ICU or [phone] if on RNF. SUBJECTIVE: Pt seen at [...] 0659 08/01/24 07 - 08/02/24 0659 Shift 5139-1840 4004-1596 3227-8246 24 Hour Total 2348-2413 7683-9117 5761-6067 24 Hour Total INTAKE PO 120 120 PO 120 120 IV 125 125 Volume (mL) (lactated ringers iv infusion) 125 125 Shift Total 125 120 245 OUTPUT Urine 400 0 800 1200 Output ( External Collection Device 07/29/24 0016 [facility]) 400 0 800 1200 Shift Total 400 [...] CREAT -- (more content not included)...[facility]10-02-2024 NoteHNO ID: [id number] Author: OSVALDO SEGURA MD Service: Palliative Care Author Type: Physician Type: Progress Notes Filed: 07/31/2024 15:32 Note Text: Documentation Query Please clarify the Present on Admission status for the diagnosis of sacral Pressure Injury. Present on Admission This document will become part of the patient's medical record.[facility]10-02-2024 NoteHNO ID: [id number] Author: BILLIE UIRARTE RN Service: Care Management Author Type: Registered [...] list within [place] [address] left at the bedside. ADDENDUM 8185: Spoke with patient at the bedside. Discussed therapy recommendation and reviewed SNF choice list. Patient states she prefers to return home at discharge but would like to speak with her family first before making any decisions. Will continue to follow for transitional/discharge planning needs. SIGNATURE: Billie Uriarte RN PATIENT NAME: Amna Sequeira DATE: July 31, 2024 TIME: 2:06 PM PAGER/CONTACT #: [phone] Light [facility]10-02-2024 Note HNO ID: [id number] Author: AUBREE IRELAND MD Service: General Surgery Author Type: Physician Type: Progress Notes Filed: 07/31/2024 09:13 Note Text: Documentation Query Please clarify the Diagnosis associated with the above clinical indicators. Hypokalemia This document will become part of the patient's medical record.[facility]10-02-2024 NoteHNO ID: [id number] Author: OSVALDO SEGURA MD Service: Pain Management [...] DVTs on Coumadin, hypothyroidism transferred 07/28 from [place] with nausea, emesis, anorexia, 30 pound weight [...] Patient is followed by Dr. Simon in [place] for chronic pain management. Home pain regimen [...] tab(s) ( (more content not included)...[facility]10-02-2024 NoteHNO ID: [id number] Author: AUBREE IRELAND MD Service: General Surgery [...] questions or concerns Mon-Fri 6a-5p please page [phone]. After 5pm and on Weekends and Holidays, [...] 07/30/24699 - 07/31/2465807/31/24699 - 08/01/24 0659 Shift 4847-4254 5886-0101 4237-6775 24 Hour Total 5549-7818 8239-0443 1529-0498 24 Hour Total INTAKE Shift Total OUTPUT Urine 400 980 336 8892 Output ( External Collection Device 07/29/24 0016 [facility]) 400 960 320 1347 Shift Total 400 254 961 0014 Weight (kg) 79.3 79.3 80.7 80.7 80.7 [...] mg INTRA (more content not included)...[facility]10-01-2024 NoteHNO ID: [id number] Author: BILLIE URIARTE RN Service: Care Management [...] 30, 2024 TIME: 10:19 AM PAGER/CONTACT #: [phone] [facility]09-30-2024 Note HNO ID: [id number] Author: PATI ANDREW RN Service: Care Management Author Type: Registered Nurse Type: Care Mgt Initial Assessment Filed: 07/29/2024 17:57 Note Text: CARE MANAGEMENT: ASSESSMENT AND DISCHARGE PLAN SERVICE DATE: July 29, 2024 SERVICE TIME: 5:50 PM PCP: No primary care provider on file. Primary Contact: Extended Emergency Contact Information Primary Emergency Contact: Fransisca Mendez [place] Relation: Daughter Secondary Emergency Contact: Ana Bermudez [place] Relation: Sister Admission Status: Inpatient Insurance Provider: [employer] MEDICARE PPO Discharge Planning requested by: Per Department Practice Potential Transition Plans To Be Determined Advance Directives Current Advance Directive: None Waiter/Waitress Buffet Attempted to Assist with AD Completion: Yes [...] home, General wellness, Less pain, Better appetite [place] Explained: [place] Given: No Reason Not Given: [...] 29, 2024 TIME: 5:44 PM CONTACT #: [phone] Light Eastern [facility] Center09-30-2024 Note HNO ID: [id number] Author: AKI HANNA APRN.CNP Service: General Surgery Author Type: Nurse Practitioner Type: Progress Notes Filed: 07/29/2024 08:54 Note Text: Emergency General Surgery Progress Note SERVICE DATE: July 29, 2024 Emergency General Surgery Service Pager: For questions or concerns Mon-Fri 6a-5p please page . After 5pm and on Weekends and Holidays, [...] NPO Code Status: N (more content not included)...[facility] 09-23-2023 NotePROCEDURE: CHEST AP [...] atelectasis 4. No pneumothorax, consolidation, or [facility]usionD[facility] 12[facility]-2021 History of Present illness Narrative* Félix MoultonAMRVA-CEMETERY MANAGER - 12/22/2021 10:00 AM EST HPI: Patient [...] have reviewed the findings of the clinical marketing support coordinator and agree with their assessment. Ortho Nurse Established Patient Intake Room#: 5 Date: 12/22/2021 10:40 AM Patient: Amna Sequeira MR#: [id number] : 1955 Age: 66 y.o. 1yr R [...] 12/22/2021 10:40 AM Patient: Amna Sequeira MR#: [id number] : 1955 Age: 66 y.o. 1yr R [...] amoxicillin, and sulfa antibiotics. [facility] Author ROBERT Alvarado [facility] Note Date/Time May 13, 2025 2:16 pm [facility] Medical Records Department [address] [place] [address] Anesthesia Postop Eval I 05/13/25 1300 MR#: [id number] Acct: [id number] Name: FABBYAMNA Pond Rep #:[id number] : 1955 70 From: Homero Alvarado PCP: Dr. Galindo Gutierrze MD Status:REG SD C Y Race: C Location: [place] [address] Anesthesia: Postop Eval I Current Vital Signs [...] Alvarado Cosigner Signature: Date CC: ~ Signed [facility] Work Phone: Evaluation note* Diagnosis Hx of total knee arthroplasty, right- Primary [facility] Diagnosis Acute pancreatitis, unspecified complication status, unspecified pancreatitis type- Primary documented in this [facility]* Diagnosis Acute pancreatitis, unspecified complication status, unspecified pancreatitis type documented in this [facility]* Diagnosis Liver lesion- Primary Other specified disorders of liver Diarrhea of presumed infectious origin documented in this [facility] note* Diagnosis Liver lesion- Primary Other specified disorders of liver documented in this encounter [facility] note* Diagnosis Liver lesion Other specified disorders of liver documented in this [facility]* Diagnosis Liver lesion- Primary Other specified disorders of liver Bilious vomiting with nausea Gastric perforation (HCC) Chronic or unspecified gastric ulcer with perforation, without mention of obstruction documented in this encounter [facility] for referral (narrative)No reason for referral information availableWMarymount Hospital Work Phone: Reason for Referral Status Reason Specialty Diagnoses / Procedures Referre d By Contact Referred To Contact Félix Moulton APRN-CEMETERY MANAGER [address] [place] [address] Status Reason Specialty Diagnoses / Procedures Referred By Contact Referred To Contact New Request Procedures ACTIVITY TOLERATED Félix Moulton APRN-CNP [address] [place] [address] Status Reason Specialty Diagnoses / Procedures Referre d By Contact Referred To Contact Closed Procedures ECG Jayro Marquez MD [address] [place] [address] Status Reason Specialty Diagnoses / Procedures Referre d By Contact Referred To Contact Katie Pizarro CNP [address] [place] [address] Status Reason Specialty Diagnoses / Procedures Referred By Contact Referred To Contact New Request Infectious Diseases Diagnoses 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, initial encounter Félix Moulton, CARE CONSULTANT-CEMETERY MANAGER [address] [place] [address] Maximiliano Mayo MD [address] [place] [address] Status Reason Specialty Diagnoses / Procedures Referred By Contact Referred To Contact New Request Diagnoses History of revision of total replacement of right knee joint Procedures XR KNEE RIGHT 3 VIEWS Félix Moulton CARE CONSULTANT-CEMETERY MANAGER [address] [place] [address] Status Reason Specialty Diagnoses / Procedures Referred By Contact Referred To Contact New Request Diagnoses History of revision of total replacement of right knee joint Procedures XR KNEE RIGHT 3 VIEWS Galindo Zepeda MD [address] [place] [address] Status Reason Specialty Diagnoses / Procedures Referred By Contact Referred To Contact New Request Diagnoses History of revision of total replacement of right knee joint Procedures XR BONE LENGTH STUDY Galindo Zepeda MD [address] [place] [address] Status Reason Specialty Diagnoses / Procedures Referred By Contact Referred To Contact New Request Diagnoses History of total knee arthroplasty, right Procedures XR KNEE RIGHT 3 VIEWS Félix Moluton CARE CONSULTANT-CEMETERY MANAGER [address] [place], [place] [id number] Specialty Diagnoses / Procedures Referred By Contac t Referred To Contact Diagnoses Hx of total knee arthroplasty, right Procedures XR KNEE RIGHT 3 VIEWS Félix Moulton CARE CONSULTANT-CEMETERY MANAGER [address] [place] [id number] Referral ID Status Reason Start Date Expiration Date V isits Requested Visits Authorized [id number] New Request 12/16/2021 01/10/2023 1 1 Specialty Diagnoses / Procedures Referred By Contac t Referred To Contact CT IMAGING Diagnoses Acute pancreatitis, unspecified complication status, unspecified pancreatitis type Procedures CT PANCREAS W IVCON CT ABDOMEN W/CONTRAST Aubree Ireland MD [address] [place] [address] Ct Imaging [facility] Referral ID Status Reason Start Date Expiration Date Visits Requested Visits Authorized [id number] Pending Review Auto-Generat ed Referral 08/01/2024 08/31/2025 1 1 Specialty Diagnoses / Procedures Referred By Contac t Referred To Contact CT IMAGING Diagnoses Liver lesion Procedures CT LIVER W IVCON CT ABDOMEN W/CONTRAST Aubree Ireland MD [address] [place] [address] Ct Imaging [facility] Referral ID Status Reason Start Date Expiration Date Visits Requested Visits Authorized [id number] Pending Review Auto-Generat ed Referral 4 09/19/2025 1 1 Specialty Diagnoses / Procedures Referred By Contac t Referred To Contact MR IMAGING Diagnoses Liver lesion Procedures MRI LIVER WO/W IVCON MRI ABDOMEN W/O & W/CONTRAST MATERIAL Aubree Ireland MD [address] [place] [address] Mr Imaging [facility] Referral ID Status Reason Start Date Expiration Date Visits Requested Visits Authorized [id number] New Request Auto-Generat ed Referral 09/19/2025 1 1 Specialty Diagnoses / Procedures Referred By Contac t Referred To Contact Gastroenterology Diagnoses Bilious vomiting with nausea Gastric perforation (HCC) Procedures CONSULT TO GASTROENTEROLOGY OFFICE/OUTPATIENT NEW HIGH MDM 60 MINUTES Billie Joseph PA-C [address] [place] [address] Referral ID Status Reason Start Date Expiration Date Visits Requested Visits Authorized [id number] Authorized PCP Requested Referral 11/18/2024 11/18/2025 1 1 Hospital Course * Juarez Katie L, CEMETERY MANAGER - 12/17/2018 1:54 PM EST Discharge Summary [...] MG TABS Commonly known as: CIPRO nystatin 895893 UNIT/ML oral suspension Commonly known as: MYCOSTATIN [...] tolerated. Discharge Follow-up: Galindo Zepeda MD [address] [place] [phone] In 2 weeks Maximiliano Mayo MD [address] [facility] [phone] In 2 weeks Discharge Disposition: Patient will be discharged in stable condition. Discharge Time: Including assessment, planning, and medication reconciliation was greater than 35 min. Katie Pizarro DNP completing Discharge Summary for Dr. Arreaga Please note Portions of this note utilized Marketw[employer] dictation software, please excuse any typographical or [...] sent through Care Everywhere. * Ertapenem injection (Latvian) * CELLULITIS SKIN INFECTION ([facility]) (DANISH) * Cellulitis, Discharge Instructions for (Latvian) documented in this encounter History of Present Illness * Katie Pizarro CNP - 12/17/2018 6:51 PM EST PICC line in atrial caval junction, okay to use, no adjustment needed. * Nicole Crockett - 12/17/2018 4:03 PM EST TRACI met with patient to see if she wanted to use [facility] for the IV antibiotics. Patient stated that she was agreeable to the co-pay but would like to know the company that was providing the medication through [facility]. CM told patient that she would have [...] EST TRACI received call from María from [employer] at home. María stated that they would not be able to use [facility] for the IV antibiotics because they have to bill [employer] directly. María stated that her office would send the order to [facility] and would call within the hour with the co-pay amounts for the patient. CM to follow. * Félix Moulton, CARE CONSULTANT-CEMETERY MANAGER - 12/17/2018 2:00 PM EST Total Joint [...] were going to send it to their [facility] office as the patient lives in [place]. CM asked for a return call as soon as possible due to patients possible discharge this afternoon. CM to follow. * Nicole Crockett - 12/17/2018 12:53 PM EST CM met with patient this date to discuss discharge plans. Patient stated she was open to using homehealth services in the home for IV antibiotics. She stated that she had used [facility] in [facility] and would like to use them again. Patient reviewed and signed home health list for [facility]. CM to make referral at this time and also to fax patient information and prescription for IV antibiotics to [facility]. CM to follow. * Viviana Estevez [facility],PharmD - 12/17/2018 11:50 AM EST Pharmacy to Dose - Warfarin Note PATIENT: Amna Sequeira Room/Bed: [facility]/ Desired INR range: 2-3 Indication(s): DVT prophylaxis [...] questions. Signed: Viviana Estevez RPh,PharmD, Pharmacist Phone: [phone] Date/Time: 12/17/2018 11:51 AM * Tracy Guzman [...] LSW - 12/17/2018 9:16 AM EST 12/17/18 0989 Information Source Information Source patient Contact Information Social Work Contact Name JUAN M Cooney Human Relations Manager's Food Insecurity In the past 12 months, [...] Retired Employment/Financial Concerns no Source Of Income pension/penitentiary Financial Concerns none Cognitive/Perceptual/Developmental Current Mental Status/Cognitive Functioning no deficits noted Recent Changes in Mental Status/Cognitive Functioning no changes Emotional/Psychological Mood congruent to situation Verbal Skills no deficits noted Current Interpersonal Conduct/Behavior appropriate to situation Referral Information Referral Source physician * Katie Pizarro CNP - 12/16/2018 9:40 AM EST [facility] LOS: 3 days Principal Problem: Cellulitis [...] Intake/Output Summary (Last 24 hours) at 12/16/2018 0914 Last data filed at 12/16/2018 0815 Gross [...] AM Was on clindamycin IV 12/09-12/13 at [facility] changed to meropenem on 12/13 ASSESSMENT & [...] Please note Portions of this note utilized [employer] dictation software, please excuse any typographical or [...] - Warfarin Note PATIENT: Amna Sequeira Room/Bed: [facility] Desired INR range: 2-3 Indication(s): Prophylactic Use [...] questions. Signed: Carline Dillon RPh,PharmD, Pharmacist Phone: [phone] Date/Time: 12/16/2018 8:54 AM * Nelsy Rodriguez, OT - 12/15/2018 4:24 PM EST 12/15/18 2902 General Information RN Approved Intervention as tolerated [...] Home 0 Equipment Available straight cane;wheeled walker;shower chair;quality and reliability engineer;hand held shower hose Cognitive Status Examination Orientation Status (Cognition) oriented x 4 Level of Consciousness alert Able to Follow Commands (Communication) WNL Personal Safety and Judgment intact Vision (check all that apply) Vision prescription glasses Hearing Hearing no gross deficits noted Range of Motion (ROM) Range of Motion Examination bilateral upper extremity ROM was WNL Manual Muscle Testing (MMT) Dominant Hand right Hand Assistant Center Manager, Right strong Hand Assistant Center Manager, Left strong Manual Muscle Testing Results no strength deficits were identified Bed Mobility Skill: Supine to Sit, Rehab Eval Level of [place]: Supine/Sit contact guard Transfer Skill: Sit to Stand, Rehab Eval Level of [place]: Sit/Stand supervision Weight-Bearing Restrictions: Sit/Stand weight-bearing as tolerated Transfer Skill: Stand to Sit, Rehab Eval Level of [place]: Stand/Sit supervision Bathing Level of [place] minimum assist (75% patients effort) (per report prior to OT arrival) Lower Body Dressing Level of [place] dependent (less than 25% patients effort) General Therapy Interventions Planned Therapy Interventions (OT Eval) ADL retraining;balance training;strengthening;transfer training Acute OT AMPA Acute OT [facility] Assessments Daily Activity Inpatient Short Form PRIOR [...] Functional Impairment in Daily Activity - CURRENT [facility] Daily Activity Inpatient Short Form Putting [...] Discharge Pt will return home, all transfers [place] Goals Goal 1 Pt will complete h/g standing at sink to challenge standing balance and duration, supervision Goal 2 Pt will bathe self, supervision. Goal 3 Pt will trial use of sock aid/quality and reliability engineer to increase ability to participate in LB dressing, Heath Goal 4 Pt will be Ind with [facility] HEP Therapist Recommendations At Discharge Recommendations OT Services not recommended at Discharge Plan Plan Narrative edu on use of sock aid and quality and reliability engineer Therapist Information License # [id number] * Hudson Diaz, PT - 12/15/2018 12:14 [...] Supine to Sit, Rehab Eval Level of [place]: Supine/Sit minimum assist (75% patients effort) Physical Assist/Nonphysical Assist: Supine/Sit 1 person assist Transfer Skill: Sit To Stand, Rehab Eval [place] (Sit-Stand Transfers) minimum assist (75% patient effort) Physical Assist/Nonphysical Assist: Sit/Stand 1 person assist Weight-Bearing Restrictions: Sit/Stand weight-bearing as tolerated Assistive Device For Transfer: Sit/Stand 2 wheeled walker Gait Skills, PT Eval Level of [place]: Gait contact guard Physical Assist/Nonphysical Assist: Gait [...] control;decreased strength;decreased ROM Stair Negotiation Level of [place]: Stair Negotiation unable to perform General Interventions [...] railing 4 - No Assistance PRIOR LEVEL [facility] Mobility Raw Score 24 PRIOR LEVEL [facility] Mobility Functional Limitation/Modifier 0.00% Prior Functional Impairment in Basic Mobility - CH CURRENT [facility] Basic Mobility Inpatient Short Form Turning [...] a railing 1 - Total Assistance CURRENT [facility] Mobility Raw Score 16 CURRENT [facility] Mobility Functional Limitation/Modifier 54.16% Currently Impaired [...] next PT session Therapist Information License # [id number] Hudson Diaz, PT 12/15/2018 12:14 PM * Katie Pizarro CNP - 12/15/2018 10:02 AM EST [facility] LOS: 2 days Principal Problem: Cellulitis [...] Please note Portions of this note utilized [employer] dictation software, please excuse any typographical or [...] rec's, will likely need PICC and plan [facility] proph. 3. DVT prophylaxis 4. Discharge planning * Carline Dillon, [facility],PharmD - 12/15/2018 8:20 AM EST Pharmacy to Dose - Warfarin Note PATIENT: Amna Sequeira Room/Bed: [facility] Desired INR range: 2-3 Indication(s): Prophylactic Use [...] questions. Signed: Carline Dillon RPh,PharmD, Pharmacist Phone: [phone] Date/Time: 12/15/2018 8:20 AM * Saleem Shankar - 12/14/2018 6:35 PM EST Pharmacy to Dose - Warfarin Note PATIENT: Amna Sequeira Room/Bed: [facility] Patients home dose: 2.5 mg daily Desired [...] are any questions. Signed: Carito Solis Phone: [phone] Date/Time: 12/14/2018 6:35 PM * Félix Moulton [...] surgery today. All questions addressed. * Tracy Guzman LSW - 12/14/2018 9:05 AM EST Spoke [...] prosthetic joint infection. She originally presented to [facility] after she was bit by a cat [...] reported to be where the aspiration occurred. [place] were cleansed with Betadine, subsequently removed. Steri-Strips [...] happy to see her in the meantime. ([id number]) Procedures I have reviewed the findings of the clinical marketing support coordinator and agree with their assessment. Félix Moulton APRN-FANNIE Ortho Nurse Established Patient Intake Room#: 4 PT reports for 2 week s/p right knee revision. PT is currently in 6/10 pain after taking oxycodone prior to arrival. PT is currently using a walker for an assistive device. Date: 12/27/2018 2:45 PM Patient: Amna Sequeira MR#: [id number] : 1955 Age: 63 y.o. Referring Physician: [...] 12/27/2018 2:45 PM Patient: Amna Sequeira MR#: [id number] : 1955 Age: 63 y.o. Referring Physician: [...] Cellulitis Pt states doing good. Went to [employer], still has redness to lower rt leg [...] on file documented in this encounter* SaigeFélix, CARE CONSULTANT-CEMETERY MANAGER - 01/16/2019 11:40 AM EDT HISTORY OF [...] done of the lower extremity at the [facility], but she had no problems with [...] I am happy to see her sooner. ([id number]) Procedures I have reviewed the findings of the clinical marketing support coordinator and agree with their assessment. DESIREE Appiah .I have reviewed the findings of the clinical marketing support coordinator and agree with their assessment. DESIREE Appiah Ortho Nurse Established Patient Intake Room#: 3 PT reports for 3 week f/u for right knee revision. PT denies any pain at this time, PT reports taking OTC liquid Advil PRN for pain with moderate relief. Date: 01/16/2019 11:59 AM Patient: Amna Sequeira MR#: [id number] : 1955 Age: 63 y.o. Referring Physician: [...] 01/16/2019 11:59 AM Patient: Amna Sequeira MR#: [id number] : 1955 Age: 63 y.o. Referring Physician: [...] have reviewed the findings of the clinical marketing support coordinator and agree with their assessment. Ortho Nurse Established Patient Intake Room#: for her 4 month post-op check of right knee revision. She has been doing good. She has 0 pain. Date: 04/18/2019 10:58 AM Patient: Amna Sequeira MR#: [id number] : 1955 Age: 63 y.o. Referring Physician: Galindo Zepeda MD Insurance: Payor: MEDICARE [facility] PFFS / Plan: MEDICARE [facility] PFFS / Product Type: *No Product type* [...] 04/18/2019 10:58 AM Patient: Amna Sequeira MR#: [id number] : 1955 Age: 63 y.o. Referring Physician: [...] fever or chills. documented in this encounter* Patsy Shine LPN - 08/14/2019 11:00 AM EDT [...] doing fine, and swimming now at the [facility]. No rashes, no diarrhea. Past Medical History: [...] doing fine, and swimming now at the [facility]. No rashes, no diarrhea. Again on 12/04/2019: Patient seen, in clinic for a follow up. She had complained of some discomfort taking the ampicillin po. States that it makes her sick. No fever, no diarrhea. Knee is doing good, no pains, no swellings, or redness. Patient is doing god generally, and still going to the [employer] and swimming. Patient cosiders stopping medications Past [...] exercising. documented in this encounter* Félix Moulton, CARE CONSULTANT-CEMETERY MANAGER - 12/25/2019 10:00 AM EST HPI: Patient [...] have reviewed the findings of the clinical marketing support coordinator and agree with their assessment. Ortho Nurse Established Patient Intake Room#: 5 Date: 12/25/2019 10:14 AM Patient: Amna Sequeira MR#: [id number] : 1955 Age: 64 y.o. Patient is here today for her 1 year right TKA. Patient has no complaints and states that she is doing well. Pain scale is 0/10. Referring Physician: Félix Moulton APRN-CNP Insurance: Payor: MEDICARE [facility] PFFS / Plan: MEDICARE [facility] PFFS / Product Type: *No Product type* [...] 12/25/2019 10:14 AM Patient: Amna Sequeira MR#: [id number] : 1955 Age: 64 y.o. Patient is here today for her 1 year right TKA. Patient has no complaints and states that she is doing well. Pain scale is 0/10. Referring Physician: Saige, Félix, CARE CONSULTANT-CEMETERY MANAGER Insurance: Payor: MEDICARE [employer] / Plan: [...] doing fine, and swimming now at the [facility]. No rashes, no diarrhea. Again on 12/04/2019: Patient seen, in clinic for a follow up. She had complained of some discomfort taking the ampicillin po. States that it makes her sick. No fever, no diarrhea. Knee is doing good, no pains, no swellings, or redness. Patient is doing good generally, and still going to the [employer] and swimming. Patient cosiders stopping medications. Again [...] 1yr Patient continue to go to the [facility], with swimming. Over 50% of the clinic [...] a month at Unknown time Taking nystatin 611558 UNIT/ML oral suspension Taking Allergies Allergen Reactions [...] Do you have a Healthcare Power of Carburetor Repairer? Yes May 12, 2025 8:53am Advance Directives [...] XR KNEE RIGHT 3 VIEWS Félix Moulton, CARE CONSULTANT-CEMETERY MANAGER [address] [place] [address] Reason Comments Post Op Visit Reason Comments Follow-up Cellulitis Pt states doing good . Went to [place], still has redness to lower rt leg where cat scratched her. Pt has LISHA PICC. Reason Comments Follow-up Reason Comments Order [...] XR KNEE RIGHT 3 VIEWS Félix Moulton, CARE CONSULTANT-CEMETERY MANAGER [address] [place] [address] Reason Comments Follow-up Infection cellulitis-right kne e [...] XR KNEE RIGHT 3 VIEWS Félix Moulton, CARE CONSULTANT-CEMETERY MANAGER [address] [place] [address] Reason Comments Post-Discharge Follow Up Infection rt knee infected. Pt c/o pain05/08. Denies fever and chills. Status Reason Specialty Diagnoses / Procedures Referred By Contact Referred To Contact New Request Diagnoses History of revision of total replacement of right knee joint Procedures XR KNEE RIGHT 3 VIEWS Galindo Zepeda MD [address] [place] [address] Specialty Diagnoses / Procedures Referred By Contac t Referred To Contact Diagnoses Hx of total knee arthroplasty, right Procedures XR KNEE RIGHT 3 VIEWS Félix Moulton, CARE CONSULTANT-CEMETERY MANAGER [address] [place] [address] Referral ID Status Reason Start Date Expiration Date V isits Requested Visits Authorized [id number] New Request 12/16/2021 01/10/2023 [address] Specialty Diagnoses / Procedures Referred By Contac t Referred To Contact CT IMAGING Diagnoses Acute pancreatitis, unspecified complication status, unspecified pancreatitis type Procedures CT PANCREAS W IVCON CT ABDOMEN W/CONTRAST Aubree Ireland MD [address] [place] [address] [place] [address] Referral ID Status Reason Start Date Expiration Date V isits Requested Visits Authorized [id number] Closed Auto-Generate d Referral 08/03/2024 10/02/2024 1 1 Reason Comments Established Patient Follow up CT Scan/ h ospital follow up Specialty Diagnoses / Procedures Referred By Contac t Referred To Contact CT IMAGING Diagnoses Liver lesion Procedures CT LIVER W IVCON CT ABDOMEN W/CONTRAST Aubree Ireland MD [address] [place] [address] [place] [address] Referral ID Status Reason Start Date Expiration Date V isits Requested Visits Authorized [id number] Closed Auto-Generate d Referral 11/04/2024 01/03/2025 1 1 Reason Comments Follow Up INFORMATION SOURCE (unrecogn ized section and content) DATE CREATED AUTHOR 12/31/2018 [facility] ([place]) DATE CREATED AUTHOR AUTHOR'S ORGANIZ ATION 06/12/2020 [facility] DATE CREATED AUTHOR AUTHOR'S ORGANIZ ATION 12/23/2022 [facility] DATE CREATED AUTHOR AUTHOR'S ORGANIZ ATION 11/21/2023 [facility] DATE CREATED AUTHOR AUTHOR'S ORGANIZ ATION 05/26/2024 [facility] DATE CREATED AUTHOR AUTHOR'S ORGANIZ ATION 11/10/2024 [facility] DATE CREATED AUTHOR AUTHOR'S ORGANIZ ATION 03/17/2025 [facility] DATE CREATED AUTHOR AUTHOR'S ORGANIZ ATION [facility]/06/20[facility] DATE CREATED AUTHOR AUTHOR'S ORGANIZ ATION 05/18/2025 [facility] DATE CREATED AUTHOR AUTHOR'S ORGANIZ ATION 06/11/2025 [facility] Care Teams (unrecognized sec tion and content) Plasma Processing Technician Relationship Specialty Start Date End Date Galindo Gutierrez MD [address] [place] [address] PCP - General Family Medicine 12/26/16 Plasma Processing Technician Relationship Specialty Start Date End Date Galindo Gutierrez MD [address] [place] [id number] PCP - General Family Medicine 12/26/16 Plasma Processing Technician Relationship Specialty Start Date End Date Galindo Gutierrez MD [address] [place] [address] PCP - General Family Medicine 08/20/24 Plasma Processing Technician Relationship Specialty Start Date End Date Galindo Gutierrez MD [address] [place] [address] PCP - General Family Medicine 08/20/24 Plasma Processing Technician Relationship Specialty Start Date End Date Galindo Gutierrez MD [address] [place] [address] PCP - General Family Medicine 08/20/24 Plasma Processing Technician Relationship Specialty Start Date End Date Galindo Gutierrez MD [address] [place] [address] PCP - General Family Medicine 08/20/24 Team Status: Active Member Role Status Dates Dr. Galindo Gutierrez MD Primary Care Provider Active Team Status: Inactive Member Role Status Dates Dr. Galindo Gutierrez MD Primary Care Provider Active Start: March 04, 2025 End: March 04, 2025 Dr. Galindo Gutierrez MD Referring Provider Active S tart: March 04, 2025 End: March 04, 2025 Allyson Barkley CARE PARTNER-C Attending Provider Active S tart: March 04, 2025 End: March 04, 2025 Team Status: Inactive Member Role Status Dates Dr. Galindo Gutierrez MD Primary Care Provider Active Start: March 04, 2025 End: March 04, 2025 Allyson Barkley CARE PARTNER-C Attending Provider Active S tart: March 04, 2025 End: March 04, 2025 Allyson Barkley CARE PARTNER-C Referring Provider Active S tart: March 04, [...] 2025 End: March 20, 2025 Allyson Barkley CARE PARTNER-C Attending Provider Active S tart: March 20, 2025 End: March 20, 2025 Allyson Barkley CARE PARTNER-C Referring Provider Active S tart: March 20, [...] 2025 End: March 04, 2025 Allyson Barkley CARE PARTNER-C Attending Provider Active S tart: March 04, 2025 End: March 04, 2025 Team Status: Inactive Member Role/Relationship Status Dates Dr. Galindo Gutierrez MD Primary Care Provider Active Start: March 04, 2025 End: March 04, 2025 Allyson Barkley CARE PARTNER-C Attending Provider Active S tart: March 04, 2025 End: March 04, 2025 Allyson Barkley CARE PARTNER-C Referring Provider Active S tart: March 04, 2025 End: March 04, 2025 Team Status: Inactive Member Role/Relationship Status Dates Dr. Galindo Gutierrez MD Primary Care Provider Active Start: March 18, 2025 End: March 18, 2025 Dr. Galindo Gutierrez MD Referring Provider Active S tart: March 18, 2025 End: March 18, 2025 Allyson Barkley CARE PARTNER-C Attending Provider Active S tart: March 18, 2025 End: March 18, 2025 Team Status: Inactive Member Role/Relationship Status Dates Dr. Galindo Gutierrez MD Primary Care Provider Active Start: March 20, 2025 End: March 20, 2025 Allyson Barkley CARE PARTNER-C Attending Provider Active S tart: March 20, 2025 End: March 20, 2025 Allyson Barkley CARE PARTNER-C Referring Provider Active S tart: March 20, 2025 End: March 20, 2025 Team Status: Inactive Member Role/Relationship Status Dates Dr. Galindo Gutierrez MD Primary Care Provider Active Start: April 04, 2025 End: April 04, 2025 Dr. Galindo Guiterrez MD Attending Provider Active S tart: April [...] or prosecute any alcohol or drug abuse patient.[facility] the event this information is protected by the Federal Confidentiality of Alcohol and Drug Abuse Patient Records regulations: The Federal rules restrict any use of the information to criminally investigate or prosecute any alcohol or drug abuse patient.[facility] Hospital[facility] the event this information is protected by the Federal Confidentiality of Alcohol and Drug Abuse Patient Records regulations: The Federal rules restrict any use of the information to criminally investigate or prosecute any alcohol or drug abuse patient.[facility] the event this information is protected by the Federal Confidentiality of Alcohol and Drug Abuse Patient Records regulations: The Federal rules restrict any use of the information to criminally investigate or prosecute any alcohol or drug abuse patient.[facility] HospitalIn the event this information is protected by the Federal Confidentiality of Alcohol and Drug Abuse Patient Records regulations: The Federal rules restrict any use of the information to criminally investigate or prosecute any alcohol or drug abuse patient.[facility] Hospital[facility] the event this information is protected by the Federal Confidentiality of Alcohol and Drug Abuse Patient Records regulations: The Federal rules restrict any use of the information to criminally investigate or prosecute any alcohol or drug abuse patient.[facility] Goals (unrecognized section and content) Goals may [...] BE BASED ON THE PRIMARY CLINICAL RECORDS. [facility]. provides no warranty or guarantee of the accuracy or completeness of information in this document.
--- OUTSIDE RECORDS SUMMARY | 2025-06-19 22:17 | XMS RPT_ITS | CCD ---
Author Organization [facility] Care Team Providers Care Equities Analyst Name Role Phone Galindo Gutierrez Primary Care Provider Galindo Gutierrez MD Primary Care Provider GALINDO GUTIERREZ Primary Care Unavailable SELF, SELF Referring Unavailable GALINDO ZEPEDA Attending Unavailable GALINDO ZEPEDA Attending Unavailable GALINDO ZEPEDA Referring Unavailable GALINDO GUTIERREZ Primary Care Unavailable TULIO LOVE~[phone], TULIO Pond Admitting Unavailable GRACE LOVE~[phone], GRACE JUNIOR Attending Unavailable GALINDO GUTIERREZ Primary [...] MD, HEAVEN JUNIOR Consulting Unavaileryn EDWARDS MD, [employer] [facility] Consulting Unavaileryn WOODS MD, KETTY Briones Consulting Unavailable PEGGY LOVE, KETTY Briones Consulting Unavailable ELISEO LOVE, DR SONYA Gil[place] Consulting Unavaila noemy GOMES MD, DR SONYA [place] Consulting Unavaila BA Ye MD Attending Unavailable BA MENENDEZ MD Primary Care Unavailable AB MENENDEZ MD Admitting Unavailable Unavailable Primary Care Provider Galindo Cobb MD Primary Care Provider [phone] AUBREE IRELAND Referring Unavailable AUBREE IRELAND Referring Unavailable GALINDO GUTIERREZ Primary Care Unavailable AUBREE IRELAND Referring Unavailable GALINDO GUTIERREZ Primary Care Unavailable Brenda LOVE, Dr. Medley Primary Care Provider Dr. Galindo Gutierrez MD Referring Provider Filippo DATE PULLER-C, Allyson Attending Provider Filippo DATE PULLER-C, Allyson Referring Provider [phone] GALINDO GUTIERREZ Admitting Unavailable BROWN, GALINDO Attending [...] Provider Dr. Noe Wright DO Other Provider Galindo Gutierrez Primary Care Unavailable Allyson Barkley [...] Drug Allergy 12-13-19 19 Nausea and Vomiting [facility] (20 sources) Nitrofurantoin Drug Allergy 10-26-20 11 DECREASED HEART RATE [facility] (20 sources) Sulfonamides (Antibiotic) Propensity to adverse reactions to drug 02-07-20 14 [facility] (1 source) Amoxicillin / Clavulanate Drug Allergy 10-30-19 14 [facility] (1 source) Morphine Drug Allergy 05-06-19 55 [facility] (1 source) Nitrofurantoin Drug Allergy 05-06-19 55 [facility] (1 source) oxyCODONE Drug Allergy 10-30-19 16 [facility] (3 sources) Sulfonamides (Antibiotic); Translations: [SULFA (SULFONAMIDE ANTIBIOTICS)] Drug allergy (disorder) 05-06-19 55 [facility] (2 sources) Amoxicillin Drug Allergy [facility] (2 sources) Codeine Drug Allergy [facility] (2 sources) Nitrofurantoin Drug Allergy [facility] (4 sources) Sulfamethoxazole; Translations: [SULFAMETHOXAZOLE] Drug Allergy 10-26-20 11 [facility] (2 sources) Sulfamethoxazole / Trimethoprim Drug Allergy [facility] (2 sources) Sulfonamides (Antibiotic) Drug allergy (disorder) [facility] (8 sources) NITROFURANTOIN, MACROCRYSTALS / Nitrofurantoin, Monohydrate; Translations: [NITROFURANTOIN MONOHYD/M-CRYST] Drug Allergy 10-26-20 11 Other: See Comments [facility] (6 sources) Sulfamethoxazole Drug Allergy 10-26-20 11 Rash [facility] (6 sources) Sulfonamides (Antibiotic) Drug Allergy 02-07-20 14 [facility] (6 sources) Clavulanate Drug Allergy 03-04-[address] [facility] (6 sources) Codeine Drug Allergy 03-04-[address] [facility] (6 sources) Sulfonamides (Antibiotic) Allergy to substance 03-04-20 25 Hives AND RESP DISTRESS [facility] (1 source) Amoxicillin Drug Allergy 05-27-20 [facility] (1 source) Clavulanate Drug Allergy 05-27-20 [facility] (1 source) Codeine Drug Allergy 05-27-20 [facility] (1 source) Nitrofurantoin Drug Allergy 05-27-20 [facility] (1 source) Sulfonamides (Antibiotic) Drug allergy (disorder) 05-27-20 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 30 tablet 0 12/14/2018 Active Tiotropium Putney (Spiriva With Handihaler) 1 PUFF inhaler (2 sources) Start: 07-29-2013 take 1 puff(s) by inhalation once daily Tiotropium [place] (Spiriva With Handihaler) 1 PUFF inhaler Active [...] Start: 10-26-2011 take 1 puff(s) by mo [facility] twice daily fluticasone-salmeterol (ADVAIR DISKUS) [...] 2 g, Intraveno us, DAILY NEEDED, Starting [facility] 12/13/18 at 1925, Until Discontinued, for mag [...] 8:48am Start: 07-29-2013 take 1 tablet by [facility] once daily Multivitamin With Folic Acid (Thera) 1 TABLET tablet Active 1 {tbl} PO DAILY July 29, 2013 12:00am nystatin 424572 unt/ml oral suspension (4 sources) Polyene Antifungal Start: 11-15-2017 End: 12-17-2018 nystatin [id number] UNIT/ML oral suspension omeprazole 40 mg delayed release oral capsule (20 sources) Proton Pump Inhibitor Start: 07-29-2013 End: 08-08-2024 take 1 capsule by mouth once daily Omeprazole 40 mg capsule,delayed release(DR/EC) Discontinued 40 mg PO DAILY July 28, 2024 12:00am August 08, 2024 10:14am Start: 10-26-2011 take 1 capsule by mo [facility] once daily omeprazole (PRILOSEC) 20 mg ORAL capsule Take 1 capsule by mouth once daily. 0 10/26/2011 Active pantoprazole 40 mg delayed release oral tablet (1 source) Proton Pump Inhibitor Start: 12-13-2018 take 40 mg by mouth once daily 40 mg, Oral, DAILY, First dose on [facility] 12/13/18 at 2000, Until Discontinued, Indications: GERD [...] puff(s) by in halation once daily Tiotropium Putney (Spiriva With Handihaler) 1 PUFF inhaler Active [...] mg, Oral, DAILY AT BEDTIME NEEDED, Starting [facility] 12/13/18 at 1922, Until Discontinued, Sleep Start: [...] fracture] 08-08-2024 Chronic Other aftercare (1 source) shelter (current) use of anticoagulants; Translations: [CARE HOME CURRNT USE ANTICOAGULANTS] Onset: 09-29-2023 Episodic Other [...] sources) Long-term current use of anticoagulant; Translations: [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 Normal [facility] CBC (INCLUDES DIFF/PLT)on Basophils (Bld) [#/Vol] 0.024 10*3/uL Normal 0-200 [facility] Comment on above: Performed By: #### 1 023, 63, 7600 #### [facility] of [place] [address] Director Of Employee Development: Braulio Roach MD Basophils/100 WBC (Bld) 0.2 % Normal [facility] Comment on above: Performed By: #### 1 023, 63, 7600 #### [facility] [place] [address] Director Of Employee Development: Braulio Roach MD Eosinophils (Bld) [#/Vol] 0.012 10*3/uL Low 15-500 [facility] Comment on above: Performed By: #### 1 023, 63, 0 #### [facility] [place] [address] Director Of Employee Development: Braulio Roach MD Eosinophils/100 WBC (Bld) 0.1 % Normal [facility] Comment on above: Performed By: #### 1 230, 63, 7600 #### [facility] [place] [address] Director Of Employee Development: Braulio Roach MD Erythrocyte distribution width (RBC) [Ratio] 20.5 % High 11.0-15.0 [facility] Comment on above: Performed By: #### 1 023, 63, 7600 #### [facility] [place] [address] Director Of Employee Development: Braulio Roach MD Hematocrit (Bld) [Volume fraction] 34.7 % Low 35.0-45.0 [facility] Comment on above: Performed By: #### 1 023, 63, 7600 #### [facility] of [address], [address] [place] [address] Director Of Employee Development: Braulio Roach MD Hemoglobin (Bld) [Mass/Vol] 9.2 g/dL Low 11.7-15.5 [facility] Comment on above: Performed By: #### 1 0231, 6399, 7600 #### [facility] of [address], [address] [place] [address] Director Of Employee Development: Braulio Roach MD Lymphocytes (Bld) [#/Vol] 0.984 10*3/uL Normal 850-3900 [facility] Comment on above: Performed By: #### 1 0231, 63, 7600 #### [facility] of [place] [address] Director Of Employee Development: Braulio Roach MD Lymphocytes/100 WBC (Bld) 8.2 % Normal [facility] Comment on above: Performed By: #### 1 023, 63, 7600 #### [facility] of [address], [address] [place] [address] Director Of Employee Development: Braulio Roach MD MCH (RBC) [Entitic mass] 19.5 pg Low 27.0-33.0 [facility] Comment on above: Performed By: #### 1 023, 6399, 7600 #### [facility] of [address], [address] [place] [address] Director Of Employee Development: Braulio Roach MD MCHC (RBC) [Mass/Vol] 26.5 g/dL Low 32.0-36.[address] [facility] Comment on above: Result Comment: For adults, a slight decrease in the calculated MCHC value (in the range of 30 to 32 g/dL) is most likely not clinically significant; however, it should be interpreted with caution in correlation with other red cell parameters and the patient's clinical condition. Performed By: #### 1 0231, 6399, 7600 #### [facility] of [place] [address] Director Of Employee Development: Braulio Roach MD MCV (RBC) [Entitic vol] 73.4 fL Low 80.0-100.0 [facility] Comment on above: Performed By: #### 1 0231, 63, 7600 #### [facility] [place] [address] Director Of Employee Development: Braulio Roach MD Monocytes (Bld) [#/Vol] 0.432 10*3/uL Normal 200-950 [facility] Comment on above: Performed By: #### 1 0231, 63, 7600 #### [facility] [place] [address] Director Of Employee Development: Braulio Roach MD Monocytes/100 WBC (Bld) 3.6 % Normal [facility] Comment on above: Performed By: #### 1 0231, 63, 7600 #### [facility] [place] [address] Director Of Employee Development: Braulio Roach MD Neutrophils (Bld) [#/Vol] 10.548 10*3/uL High 6590-0881 [facility] Comment on above: Performed By: #### 1 0231, 63, 7600 #### [facility] of [place] [address] Director Of Employee Development: Braulio Roach MD Neutrophils/100 WBC (Bld) 87.9 % Normal [facility] Comment on above: Performed By: #### 1 0231, 63, 7600 #### [facility] of [place] [address] Director Of Employee Development: Braulio Roach MD Platelet mean volume (Bld) [Entitic vol] 9.0 fL Normal 7.5-12.5 [facility] Comment on above: Performed By: #### 1 0231, 63, 7600 #### [facility] [place] [address] Director Of Employee Development: Braulio Roach MD Platelets (Bld) [#/Vol] 460 10*3/uL High 140-400 [facility] Comment on above: Performed By: #### 1 0231, 63, 7600 #### [facility] of [place] [address] Director Of Employee Development: Braulio Roach MD RBC (Bld) [#/Vol] 4.73 10*6/uL Normal 3.80-5.10 [facility] Comment on above: Performed By: #### 1 0231, 6399, 7600 #### [facility] of [place] [address] Director Of Employee Development: Braulio Roach MD WBC (Bld) [#/Vol] 12.0 10*3/uL High 3.8-10.8 [facility] Comment on above: Performed By: #### 1 0231, 6399, 7600 #### [facility] of [place] [address] Director Of Employee Development: Braulio Roach MD [facility] 05-14-2025 Albumin [Mass/Vol] 3.9 g/dL Normal 3.6-5.1 [facility] Comment on above: Performed By: #### 1 023, 63, 7600 #### [facility] of [place] [address] Director Of Employee Development: Braulio Roach MD Albumin/Globulin [Mass ratio] 1.0 {ratio} Normal 1.0-2.5 [facility] Comment on above: Performed By: #### 1 0231, 63, 7600 #### [facility] of [place] [address] Director Of Employee Development: Braulio Roach MD ALP [Catalytic activity/Vol] 57 U/L Normal 37-153 [facility] Comment on above: Performed By: #### 1 0231, 6399, 7600 #### [facility] [place] [address] Director Of Employee Development: Braulio Roach MD ALT [Catalytic activity/Vol] 7 U/L Normal 6-29 [facility] Comment on above: Performed By: #### 1 023, 6399, 7600 #### [facility] of [address], [address] [place] [address] Director Of Employee Development: Braulio Roach MD AST [Catalytic activity/Vol] 8 U/L Low 10-35 [facility] Comment on above: Performed By: #### 1 0231, 6399, 7600 #### [facility] of [address], [address] [place] [address] Director Of Employee Development: Braulio Roach MD Bilirubin [Mass/Vol] 0.2 mg/dL Normal 0.2-1.2 [facility] Comment on above: Performed By: #### 1 0231, 6399, 7600 #### [facility] of [place] [address] Director Of Employee Development: Braulio Roach MD BUN/CREATININE RATIO SEE NOTE: Normal 6-22 [facility] Comment on above: Result Comment: Not Reported: BUN and Creatinine are within reference range. Performed By: #### 1 0231, 63, 7600 #### [facility] of [address], [address] [place] [address] Director Of Employee Development: Braulio Roach MD Calcium [Mass/Vol] 8.7 mg/dL Normal 8.6-10.4 [facility] Comment on above: Performed By: #### 1 0231, 6399, 7600 #### [facility] [place] [address] Director Of Employee Development: Braulio Roach MD Chloride [Moles/Vol] 101 mmol/L Normal 98-110 [facility] Comment on above: Performed By: #### 1 0231, 6399, 7600 #### [facility] [place] [address] Director Of Employee Development: Braulio Roach MD CO2 [Moles/Vol] 26 mmol/L Normal 20-32 [facility] Comment on above: Performed By: #### 1 0231, 6399, 7600 #### [facility] of [address] [place] [address] Director Of Employee Development: Braulio Roach MD Creatinine [Mass/Vol] 0.80 mg/dL Normal 0.60-1.[address] [facility] Comment on above: Performed By: #### 1 023, 63, 7600 #### [facility] [address], [address] [place] [address] Director Of Employee Development: Braulio Roach MD GFR/1.73 sq M.predicted among non-blacks MDRD (S/P/Bld) [Vol rate/Area] 79 mL/min/{1.73_m2} Normal > OR = 60 [facility] Comment on above: Performed By: #### 1 230, 63, 7600 #### [facility] [place] [address] Director Of Employee Development: Braulio Roach MD Globulin (S) [Mass/Vol] 3.8 g/dL High 1.9-3.7 [facility] Comment on above: Performed By: #### 1 230, 63, 7600 #### [facility] [address], [address] [place] [address] Director Of Employee Development: Braulio Roach MD Glucose [Mass/Vol] 166 mg/dL High 65-99 [facility] Comment on above: Result Comment: Fasting reference interval For someone without known diabetes, a glucose value >125 mg/dL indicates that they may have diabetes and this should be confirmed with a follow-up test. Performed By: #### 1 230, 63, 7600 #### [facility] [address], [address] [place] [address] Director Of Employee Development: Braulio Roach MD Potassium [Moles/Vol] 4.5 mmol/L Normal 3.5-5.[address] [facility] Comment on above: Performed By: #### 1 023, 6395, 7600 #### [facility] [address], [address] [place] [address] Director Of Employee Development: Braulio Roach MD Protein [Mass/Vol] 7.7 g/dL Normal 6.1-8.1 [facility] Comment on above: Performed By: #### 1 0231, 6399, 7600 #### [facility] of [place] [address] Director Of Employee Development: Braulio Roach MD Sodium [Moles/Vol] 137 mmol/L Normal 135-146 [facility] Comment on above: Performed By: #### 1 0231, 6399, 7600 #### [facility] [place] [address] Director Of Employee Development: Braulio Roach MD Urea nitrogen [Mass/Vol] 12 mg/dL Normal 7-25 [facility] Comment on above: Performed By: #### 1 0231, 6399, 7600 #### [facility] of [place] [address] Director Of Employee Development: Braulio Roach MD LIPID PANEL, [address] Cholesterol [Mass/Vol] 198 mg/dL Normal <200 [facility] Comment on above: Performed By: #### 1 0231, 6399, 7600 #### [facility] [place] [address] Director Of Employee Development: Braulio Roach MD Cholesterol in HDL [Mass/Vol] 59 mg/dL Normal > OR = 50 [facility] Comment on above: Performed By: #### 1 0231, 6399, 7600 #### [facility] [place] [address] Director Of Employee Development: Braulio Roach MD Cholesterol in LDL [Mass/Vol] [...] LDL-C. Mitchell SS et al. KING. 2013;310(19): 2635-3331 (http://education.[facility].[employer]/faq/QSC467) Performed By: #### 1 230, 25, 3680 #### [facility] [address], [address] [place] [address] Director Of Employee Development: Braulio Roach MD Cholesterol.total/Chol esterol in HDL [Mass ratio] 3.4 {ratio} Normal <5.0 [facility] Comment on above: Performed By: #### 1 230, 01, 7920 #### [facility] [address], [address] [place] [address] Director Of Employee Development: Braulio Roach MD NON HDL CHOLESTEROL 139 mg/dL (calc) High <130 [facility] Comment on above: Result Comment: For patients with diabetes plus 1 major ASCVD risk factor, treating to a non-HDL-C goal of <100 mg/dL (LDL-C of <70 mg/dL) is considered a therapeutic option. Performed By: #### 1 230, 29, 9530 #### [facility] [address], [address] [place] [address] Director Of Employee Development: Braulio Roach MD Triglyceride [Mass/Vol] 212 mg/dL High <150 [facility] Comment on above: Result Comment: If a non-fasting specimen was collected, consider repeat triglyceride testing on a fasting specimen if clinically indicated. Vivek et al. J. of Clin. Lipidol. 2015;9:129-169. Performed By: #### 1 230, 71, 6390 #### [facility] [address], [address] [place] [address] Director Of Employee Development: Braulio Roach MD TSHon 05-14-2025 TSH Qn 1.25 m[IU]/L Normal 0.40-4.50 [facility] Comment on above: Performed By: #### 1 230, 0542, 6660 #### [facility] [address], [address] [place] [address] Director Of Employee Development: Braulio Roach MD EGD Reporton 05-13-2025 EGD Report [facility] Medical Records Department [address] [place] [address] EGD Report MR#: [id number] Acct: [id number] Name: AMNA SEQUEIRA Rep #: [id number] : 1955 70 From: Noe Wright DO PCP: Dr. Galindo Gutierrez MD Status[facility] Patient Name: Amna Sequeira Procedure Date: [...] pathology results. Procedure Code(s): --- Professional --- 11426, Small intestinal endoscopy, enteroscopy beyond second portion of duodenum, not including ileum; with biopsy, single or multiple CPT copyright 2021 [employer]. All rights reserved. The codes documented in this report are preliminary and upon course developer review may be revised to meet current compliance requirements. Noe Wright DO 05/13/2025 12:58:49 PM This report has been signed electronically. Number of Addenda: 0 Note Initiated On: 05/13/2025 12:37 PM 05/13/25 1258 Date Noe Forbes Signature: Date (if indicated) CC: Dr. Galindo Morfin (more content not included)... [facility] normalized rat io (INR) calculationOrdered By: Noe Wright on 05-13-2025 INR Coag (Bld) [Relative time] 1.7 {INR} [facility] MR/POSTOP.ANEon 05-13-2025 MR/POSTOP.ANE [facility] Medical Records Department [address] [place] [address] Anesthesia Postop Eval I 05/13/25 1300 MR#: [id number] Acct: [id number] Name: AMNA SEQUEIRA Rep #: [id number] : 1955 70 From: Homero Alvarado PCP: Dr. Galindo Gutierrez MD Status:REG SDC Y Race: C Location: [place] [address] Anesthesia: Postop Eval I Current Vital Signs [...] Date Homero Pittmanigniwona Signature: Date CC: Signed [facility] MR/[id number] 05-13-2025 MR/POSTOPAN2 [facility] Medical Records Department [address] [place] [address] Anesthesia Postop Eval II 05/13/25 1913 MR#: [id number] Acct: [id number] Name: AMNA SEQUEIRA Rep #: [id number] : 1955 70 From: Doe Constantino MD PCP: Dr. Galindo Gutierrez MD Status[place]DEP [facility] [place]: C Location: [place] Anesthesia Postop [...] MD Cosigner Signature: Date CC: Signed Normal [facility] Prothrombin Time w/INRon INR Coag (PPP) [Relative time] 1.7 {INR} Normal [facility] Comment on above: Performed By: #### L 101.8944 #### [facility] [address] [place], [place], [id number] PT Coag (PPP) [Time] 20.2 s High 11.7-14.9 [facility] Comment on above: Performed By: #### L 300.3900 #### [facility] [address] [place], [place], [id number] Prothrombin timeOrdered By: Noe Wright on 05-13-2025 PT Coag (PPP) [Time] 20.2 s High 11.7-14.9 [facility] Protime w/INR Fingerstickon 05-13-2025 INR Coag (PPP) [Relative time] 1.9 {INR} Normal [facility] Comment on above: Result Comment: Crit ical Value > 4.0 Performed By: #### L 9200.0000 ####[facility] [address] [place], [address] Protime Coagsen 21.0 SEC High 11.7-14.9 [facility] Comment on above: Performed By: #### L 9200.0000 ####[facility] [address] [place], [address] Surgery Specimen Level Hilda 05-13-2025 Surgery Specimen Level IV Patient Age/Sex Location Account Attending Physician AMNA SEQUEIRA 70/F EN [id number] Noe Wright DO Specimen: [id number] Received: 05/13/25 Status: JENNIFER Copeland Num: [id number] Spec Type: EGD BIOPSY Subm Dr: Noe [...] totally submitted in one cassette. [place] 05/13/2025 CPT:14915g6 Patient Age/Sex Location Account Attending Physician AMNA SEQUEIRA 70/F EN [id number] Noe Wright, DO Signed (signature on file) Dr. Namrata Davila DO 05/20/[address] [facility] Comment on above: Performed By: #### P BERNARD ####[facility] [address] [place], [place], [id number] Whole blood prothrombin time Ordered By: Noe Wright on 05-13-2025 PT Coag (Bld) [Time] 21.0 s High 11.7-14.9 [facility] MR/PAT.SHELIAon 05-12-2025 MR/PAT.SHELIA [facility] Medical Records Department [address] [place] [place] [address] PAT - Anesthesia 05/12/25 1325 MR#: [id number] Acct: [id number] Name: AMNA SEQUEIRA Rep #: [id number] : 1955 70 From: Tone Rashid MD PCP: Dr. 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 Hx Hospitalization No 05/12/25 08:53 Any Problems [...] take am of surgery PONV PONV - merchandise planning manager: PONV - merchandise planning manager Female Yes 05/12/25 08:53 HX of Motion [...] 07/28/24 15:55 Respiratory Assessment Respiratory Assessment - merchandise planning manager: Respiratory Tract Infection Hx - merchandise planning manager Hx Respiratory Tract Infection No 05/12/25 08:53 STOP Sleep Apnea STOP Sleep Apnea - merchandise planning manager: STOP Sleep Apnea - merchandise planning manager Hx Hypertension No 05/12/25 08:53 Hx Sleep [...] Tobacco Use History Tobacco Use History - merchandise planning manager: Tobacco Use History - merchandise planning manager Tobacco Use Smoking Status Current every day smoker 05/12/25 08:53 Hx Tobacco Use No 05/12/25 08:53 Years Smoking Packs Smoked per Day Smoking Cessation Date was within the last 15 years Hx Smoking Cessation Date Hx Smoking Cessation Counseling Hematologic Medial History Hematologic Hx - merchandise planning manager: Hematologic Medical Hx - documentation specialist Hx of Blood Transfusion No 05/12/25 08:53 Hx of Transfusion in last 3 No 05/12/25 08:53 Months Date of Last Transfusion (if within last 3 months) Ever experience any problems No 05/12/25 08:53 with transfusion(s)? Specify any problems Hx of Preganancy in last 3 No 05/12/25 08:53 Months Nurse Filling Out Transfusion [facility] 05/12/25 08:53 Questions: Date: 05/12/25 05/12/25 08:53 Time: 09:06 05/12/25 08:53 Patient unable to answer at this time (ie. confused, unrespo /Reproduction History /Reproductive History - merchandise planning manager: /Reproductive Hx- merchandise planning manager Hx Now No 05/12/25 08:53 Gestational Age [...] inhalation DAILY (more content not included)... Normal [facility] Echocardiogram study reportO rdered By: Freedom Collier on 04-06-2025 Study report [facility] [address] [place] [address] Echo Complete W/ Contrast 04/04/25 0859 MR#: [id number] Acct: [id number] Name: AMNA SEQUEIRA Rep #:[id number] : 1955 69 From: Freedom rios MD [...] Date Dictated: 04/04/25858 Date Transcribed: 04/06/25 1648 Internal Carver: Signed [facility] Work Phone: Echo Complete W/ Contraston 04-04-2025 Echo Complete W/ Contrast [facility] [place] [place] [address] [place] [address] Echo Complete W/ Contrast 04/04/2559 MR#: [id number] Acct: [id number] Name: AMNA SEQUEIRA Rep #: [id number] : 1955 69 From: Freedom Collier MD Attending Dr: Dr. Galindo Gutierrez MD Status: REG Anali AVILA Ordering Dr: Galindo Gutierrez MD Date: 04/04/25 Location: [facility] Sex: F C Admitted: Reason For Study [...] MD Date Dictated: 04/04/2559 Date Transcribed: 04/06/251647 Internal Carver: Signed Normal [facility] Gastric Emptying Studyon Gastric Emptying Study [facility] Services [address] [place] [address] [id number] Gastric Emptying Study MR#: [id number] Acct: [id number] Name: AMNA SEQUEIRA Rep #: [id number] : 1955 F 69 From: Del ferraro MD PCP: Dr. Galindo Gutierrez MD Status: REG CLI Study: Gastric Emptying Study Date of Exam: 03/20/25 Exam# [id number] Ordering Dr: Allyson Barkley PROCEDURE: GASTRIC EMPTYING [...] geometric mean was used to calculate a rbqz-oyhzukax-qdpxy. RADIOPHARMACEUTICAL: Sulfur colloid DOSE 1.2mCi FINDINGS: Percent activity remaining in stomach: 1 hour 62% % (normal 37-90%) NM/Gastric Emptying Study IMPRESSION: Normal gastric emptying examination. Reading Location: [place] [address] CC: MAGI Barkley; Dr. Galindo Gutierrez MD Internal Carver: Signed Normal [facility] Gastroenterology Visit Repor ton 03-18-2025 Gastroenterology Visit Report [facility]astroenter[facility] [address] [place] [address] OFFICE VISIT Date of Service: 03/18/25 MR#: [id number] Acct: [id number] Name: AMNA SEQUEIRA Rep #: [id number] : 1955 Provider: MAGI henning Age/Sex: 69/F Location: [facility] Status: Signed Intake Vital Signs 07/28/24 15:55 [...] office today for FU after establishment with [facility] for recurrent nausea and abdominal pain before [...] does n (more content not included)... Normal [facility] 3D MAMM BILAT SCREENon 03-17 3D MAMM BILAT SCREEN [place] [address] Patient: AMNA SEQUEIRA Phone#: : 1955 Age: 69 Gender: F Pt. Type: Out Account: [id number] Location: [facility] Ordering: GALINDO GUTIERREZ Exam Date: 03/17/2025/8:13 Family Phys: Charge Code: 466110 Physician: Carbon Order #: [id number] Dose#: PROCEDURE: BILATERAL SCREENING BREAST TOMOSYNTHESIS MAMMOGRAM WITH CAD COMPARISON: [facility], BILAT SCREENING, 11/16/2018, 12:55. [facility], BILAT SCREENING, 11/26/2019, 15:08. INDICATIONS: Screening. BREAST [...] Marc MD on 03/17/2025 at 9:55 Normal [facility] Gastrin, Serumon 03-06-2025 GASTRIN 170 pg/mL High 0-115 [facility] Comment on above: Result Comment: [facility] Immulite 2000 Immunochemiluminometric assay (ICMA) Values obtained with different assay methods or kits cannot be used interchangeably. Results cannot be interpreted as absolute evidence of the presence or absence of malignant disease. Performed at: [employer] [id number] Recovery Collector: Hoda Crockett MD, Phone: [phone] Performed By: #### L 501.2450, L3300.1800, L501.2400 #### [facility] [address] [place], [address] Amylaseon 03-04-2025 BETITO 41 U/L Normal 28-100 [facility] Comment on above: Performed By: #### L 501.2450, L3300.1800, L501.2400 #### [facility] [address] [place], [address] Gastrin, serumOrdered By: Hakan Barkley on 03-04-2025 Gastrin [Mass/Vol] 170 pg/mL High 0-115 [facility] Comment on above: Siemens Immulite 200 0 Immunochemiluminometric assay (ICMA)Values obtained with different assay methods or kits cannotbe used interchangeably. Results cannot be interpreted asabsolute evidence of the presence or absence of malignantdisease.Performed at: [address] [id number] Director: Hoda Crockett MD, Phone: [phone] Gastroenterology Visit Repor ton 03-04-2025 Gastroenterology Visit Report [facility] Gastroenterology [address] [place] [address] OFFICE VISIT Date of Service: 03/04/25 MR#: [id number] Acct: [id number] Name: AMNA SEQUEIRA Rep #: [id number] : 1955 Provider: DATE PULLER-C Allyson Ev ans Age/Sex: 69/F Location: [facility] Status: Signed Intake Vital Signs 07/28/24 15:55 [...] to the office today for establishment with [facility] for recurrent nausea and abdominal pain before [...] does n (more content not included)... Normal [facility] Lipaseon 03-04-2025 Lipase [Catalytic activity/Vol] 35 U/L Normal 13-75 [facility] Comment on above: Result Comment: Britni centeno note: LIPASE revised reference range effective 23. New Lipase methodology. Expected to produce lower values than the previous assay method. NEW Reference Range: 13 - 75 U/L Performed By: #### L 501.2450, L3300.1800, L501.2400 #### [facility] [address] [place], [address] Lipase measurementOrdered By : Allyson Barkley on 03-04-2025 Lipase [Catalytic activity/Vol] 35 U/L 13-75 [facility] Comment on above: Please note:LIPASE r evised reference range effective 23. New Lipase methodology. Expected to produce lower values than the previous assay method. NEW Reference Range: 13 - 75 U/L Serum or plasma amylase killian urement (enzymatic activity/volume)Ordered By: Allyson Barkley on 03-04-2025 Amylase [Catalytic activity/Vol] 41 U/L 28-100 [facility] CBC (INCLUDES DIFF/PLT)on Basophils (Bld) [#/Vol] 0.054 10*3/uL Normal 0-200 [facility] Comment on above: Performed By: #### 1 7131, 6399 #### [facility] of [place] [address] Director Of Employee Development: Braulio Roach MD Basophils/100 WBC (Bld) 0.4 % Normal [facility] Comment on above: Performed By: #### 1 0231, 6399 #### [facility] of [address], [address] [place] [address] Director Of Employee Development: Braulio Roach MD Eosinophils (Bld) [#/Vol] 0.081 10*3/uL Normal 15-500 [facility] Comment on above: Performed By: #### 1 0231, 6399 #### [facility] of [place] [address] Director Of Employee Development: Braulio Roach MD Eosinophils/100 WBC (Bld) 0.6 % Normal [facility] Comment on above: Performed By: #### 1 023, 6399 #### [facility] of [place] [address] Director Of Employee Development: Braulio Roach MD Erythrocyte distribution width (RBC) [Ratio] 18.8 % High 11.0-15.0 [facility] Comment on above: Performed By: #### 1 0231, 6399 #### [facility] of [place] [address] Director Of Employee Development: Braulio Roach MD Hematocrit (Bld) [Volume fraction] 33.7 % Low 35.0-45.0 [facility] Comment on above: Performed By: #### 1 0231, 6399 #### [facility] of [place] [address] Director Of Employee Development: Braulio Roach MD Hemoglobin (Bld) [Mass/Vol] 9.2 g/dL Low 11.7-15.5 [facility] Comment on above: Performed By: #### 1 0231, 6399 #### [facility] of [place] [address] Director Of Employee Development: Braulio Roach MD Lymphocytes (Bld) [#/Vol] 0.878 10*3/uL Normal 850-3900 [facility] Comment on above: Performed By: #### 1 0231, 6399 #### [facility] of [place] [address] Director Of Employee Development: Braulio Roach MD Lymphocytes/100 WBC (Bld) 6.5 % Normal [facility] Comment on above: Performed By: #### 1 0231, 6399 #### [facility] of [place] [address] Director Of Employee Development: Braulio Roach MD MCH (RBC) [Entitic mass] 20.7 pg Low 27.0-33.0 [facility] Comment on above: Performed By: #### 1 0231, 6399 #### [facility] of [place] [address] Director Of Employee Development: Braulio Roach MD MCHC (RBC) [Mass/Vol] 27.3 [...] 1 023, 6399 #### [facility] of [place] [address] Director Of Employee Development: Braulio Roach MD MCV (RBC) [Entitic vol] 75.7 fL Low 80.0-100.0 [facility] Comment on above: Performed By: #### 1 0231, 6399 #### [facility] of [place] [address] Director Of Employee Development: Braulio Roach MD Monocytes (Bld) [#/Vol] 0.594 10*3/uL Normal 200-950 [facility] Comment on above: Performed By: #### 1 0231, 6399 #### [facility] of [place] [id number] Director Of Employee Development: Braulio Roach MD Monocytes/100 WBC (Bld) 4.4 % Normal [facility] Comment on above: Performed By: #### 1 0231, 6399 #### [facility] of [place] [address] Director Of Employee Development: Braulio Roach MD Neutrophils (Bld) [#/Vol] 11.894 10*3/uL High 9752-9133 [facility] Comment on above: Performed By: #### 1 0231, 6399 #### [facility] of [place] [address] Director Of Employee Development: Braulio Roach MD Neutrophils/100 WBC (Bld) 88.1 % Normal [facility] Comment on above: Performed By: #### 1 0231, 6399 #### [facility] of [place] [address] Director Of Employee Development: Braulio Roach MD Platelet mean volume (Bld) [Entitic vol] 9.6 fL Normal 7.5-12.5 [facility] Comment on above: Performed By: #### 1 0231, 6399 #### [facility] of [place] [address] Director Of Employee Development: Braulio Roach MD Platelets (Bld) [#/Vol] 488 10*3/uL High 140-400 [facility] Comment on above: Performed By: #### 1 0231, 6399 #### [facility] of [place] [address] Director Of Employee Development: Braulio Roach MD RBC (Bld) [#/Vol] 4.45 10*6/uL Normal 3.80-5.10 [facility] Comment on above: Performed By: #### 1 0231, 6399 #### [facility] of [place] [address] Director Of Employee Development: Braulio Roach MD WBC (Bld) [#/Vol] 13.5 10*3/uL High 3.8-10.8 [facility] Comment on above: Performed By: #### 1 0231, 6399 #### [facility] of [place] [address] Director Of Employee Development: Braulio Roach MD [facility] 03-02-2025 Albumin [Mass/Vol] 3.9 g/dL Normal 3.6-5.1 [facility] Comment on above: Performed By: #### 1 0231, 6399 #### [facility] of [address], [address] [place] [address] Director Of Employee Development: Braulio Roach MD Albumin/Globulin [Mass ratio] 1.0 {ratio} Normal 1.0-2.5 [facility] Comment on above: Performed By: #### 1 0231, 6399 #### [facility] of [place] [address] Director Of Employee Development: Braulio Roach MD ALP [Catalytic activity/Vol] 58 U/L Normal 37-153 [facility] Comment on above: Performed By: #### 1 0231, 6399 #### [facility] of [place] [address] Director Of Employee Development: Braulio Roach MD ALT [Catalytic activity/Vol] 6 U/L Normal 6-29 [facility] Comment on above: Performed By: #### 1 0231, 6399 #### [facility] of [place] [address] Director Of Employee Development: Braulio Roach MD AST [Catalytic activity/Vol] 12 U/L Normal 10-35 [facility] Comment on above: Performed By: #### 1 0231, 6399 #### [facility] of [place] [address] Director Of Employee Development: Braulio Roach MD Bilirubin [Mass/Vol] 0.2 mg/dL Normal 0.2-1.2 [facility] Comment on above: Performed By: #### 1 0231, 6399 #### [facility] of [address] [place] [address] Director Of Employee Development: Braulio Roach MD BUN/CREATININE RATIO SEE NOTE: Normal 6-22 [facility] Comment on above: Result Comment: Not Reported: BUN and Creatinine are within reference range. Performed By: #### 1 0231, 6399 #### [facility] [address], [address] [place] [address] Director Of Employee Development: Braulio Roach MD Calcium [Mass/Vol] 8.7 mg/dL Normal 8.6-10.4 [facility] Comment on above: Performed By: #### 1 0231, 6399 #### [facility] [address], [address] [place] [address] Director Of Employee Development: Braulio Roach MD Chloride [Moles/Vol] 106 mmol/L Normal 98-110 [facility] Comment on above: Performed By: #### 1 0231, 6399 #### [facility] [address], [address] [place] [address] Director Of Employee Development: Braulio Roach MD CO2 [Moles/Vol] 23 mmol/L Normal 20-32 [facility] Comment on above: Performed By: #### 1 0231, 6399 #### [facility] [place] [address] Director Of Employee Development: Braulio Roach MD Creatinine [Mass/Vol] 0.76 mg/dL Normal 0.50-1.05 [facility] Comment on above: Performed By: #### 1 0231, 6399 #### [facility] [place] [address] Director Of Employee Development: Braulio Raoch MD GFR/1.73 sq M.predicted among non-blacks MDRD (S/P/Bld) [Vol rate/Area] 85 mL/min/{1.73_m2} Normal > OR = 60 [facility] Comment on above: Performed By: #### 1 0231, 6399 #### [facility] [address], [address] [place] [address] Director Of Employee Development: Braulio Roach MD Globulin (S) [Mass/Vol] 3.8 g/dL High 1.9-3.7 [facility] Comment on above: Performed By: #### 1 0231, 6399 #### [facility] of [place] [address] Director Of Employee Development: Braulio Roach MD Glucose [Mass/Vol] 113 mg/dL High 65-99 [facility] Comment on above: Result Comment: Fasting reference interval For someone without known diabetes, a glucose value between 100 and 125 mg/dL is consistent with prediabetes and should be confirmed with a follow-up test. Performed By: #### 1 0231, 6399 #### [facility] [place] [address] Director Of Employee Development: Braulio Roach MD Potassium [Moles/Vol] 5.0 mmol/L Normal 3.5-5.3 [facility] Comment on above: Performed By: #### 1 0231, 6399 #### [facility] of [place] [address] Director Of Employee Development: Braulio Roach MD Protein [Mass/Vol] 7.7 g/dL Normal 6.1-8.1 [facility] Comment on above: Performed By: #### 1 0231, 6399 #### [facility] [place] [address] Director Of Employee Development: Braulio Roach MD Sodium [Moles/Vol] 138 mmol/L Normal 135-146 [facility] Comment on above: Performed By: #### 1 0231, 6399 #### [facility] of [place] [address] Director Of Employee Development: Braulio Roach MD Urea nitrogen [Mass/Vol] 12 mg/dL Normal 7-25 [facility] Comment on above: Performed By: #### 1 0231, 6399 #### [facility] [place] [address] Director Of Employee Development: Braulio Roach MD TSHon 03-02-2025 TSH Qn 1.79 m[IU]/L Normal 0.40-4.50 [facility] Comment on above: Performed By: #### 1 0231, 6399 #### [facility] [address] [facility], [address] [place] [address] Director Of Employee Development: Braulio Roach MD CREATININE BLDon 11-04-2024 Creatinine [Mass/Vol] 0.69 mg/dL Normal 0.58-0.96 [facility] Comment on above: Order Comment: Speci men Type: BLOOD SPECIMEN Ordering Facility: [facility] Address: [address] [place] [address] Performed By: #### C RET1 #### [id number] [address] [place] [address] [place] Creatinine and Glomerular filtration rate.predicted panel (S/P/Bld) 94 mL/min/1.73m??? Normal >=60 [facility] Comment on above: Order Comment: Speci men Type: BLOOD SPECIMEN Ordering Facility: [facility] Address: [address] [place] [address] Result Comment: Gisela mated Glomerular Filtration Rate [...] GFR. Performed By: #### C RET1 #### [facility] CLIA [id number] [address] [place] [address] [place] CT LIVER W IVCONon CT LIVER W IVCON * * *Final Report* * * DATE OF EXAM: Nov 04 2024 3:22PM [facility] 0548 - CT LIVER W IVCON [...] steatosis Stable thoracolumbar compression deformities. Renal cysts Internal Carver[facility] Transcribe Date/Time: Nov 07 2024 2:19P Dictated by : LIBRA ROSARIO MD This examination was interpreted and the report reviewed and electronically signed by: LIBRA ROSARIO MD on Nov 07 2024 2:33PM EST [id number] Normal [facility] CNCOon 08-20-2024 CNCO Letter Text Normal [facility] CNOVon 08-20-2024 CNOV Office Visit (AGGENS 3) ----- AMNA SEQUEIRA ([id number]) 1955 F Date Time Provider Department 08/20/24 [...] infectious origin [R19.7] Order(s):MRI LIVER WO/W IVCON [4600383] Order #: [id number] FUTURE iv contrast (will be provided with [...] 1 EachRfl: 0 CT LIVER W IVCON [3878135] Order #: [id number] FUTURE iv contrast (will be provided with [...] 0 C. DIFFICILE PCR [SQCDPCR] Order #: [id number]. #:[id number] Prescriptions as of 08/20/2024 - iv contrast [...] contrast ad (more content not included)... Normal [facility] CT PANCREAS W IVCONon 2023 CT PANCREAS W IVCON * * *Final Report* * * DATE OF EXAM: Aug 13 2024 3:40PM [facility] 0552 - CT PANCREAS W IVCON [...] multiple vertebral bodies, unchanged. Lower thorax: Unremarkable. Turbine Room Attendant (topogram) images: No additional findings. IMPRESSION: 1. Almost complete resolution of previously seen fluid collections adjacent and within the pancreas, with small residual foci of air. 2. No definite suspicious focal pancreatic lesions. No pancreatic ductal dilation. 3. Unchanged hypodense hepatic lesion, which may represent focal fat however is strictly indeterminate. Internal Carver: [facility] Transcribe Date/Time: Aug 20 2024 9:03A Dictated by : KATRIN GUZMAN MD This examination was interpreted and the report reviewed and electronically signed by: KATRIN GUZMAN MD on Aug 20 2024 9:18AM EST [id number] Normal [facility] Basic metabolic 2000 panelon 08-01-2024 Anion gap [Moles/Vol] 11 mmol/L Normal 8-15 [facility] Comment on above: Order Comment: Monika [facility] Type: BLOOD SPECIMEN Ordering Facility: [facility] Address: [address] [place] [address] Performed By: #### 3 040-3 #### [facility] CLIA [id number] [address] [place] [address] [place] Calcium [Mass/Vol] 8.3 mg/dL Low 8.5-10.2 [facility] Comment on above: Order Comment: Monika [facility] Type: BLOOD SPECIMEN Ordering Facility: [facility] Address: [address] [place] [address] Performed By: #### 3 040-3 #### [facility] CLIA [id number] [address] [place] [address] [place] Chloride [Moles/Vol] 102 mmol/L Normal 98-107 [facility] Comment on above: Order Comment: Monika [facility] Type: BLOOD SPECIMEN Ordering Facility: [facility] Address: [address] [place] [address] Performed By: #### 3 040-3 #### [facility] CLIA [id number] [address] CO2 [Moles/Vol] 24 mmol/L Normal 22-30 [facility] Comment on above: Order Comment: Speci men Type: BLOOD SPECIMEN Ordering Facility: [facility] Address: [address] [place] [address] Performed By: #### 3 040-3 #### [facility] CLIA [id number] [address] Creatinine [Mass/Vol] 0.60 mg/dL Normal 0.58-0.96 [facility] Comment on above: Order Comment: Speci men Type: BLOOD SPECIMEN Ordering Facility: [facility] Address: [address] [place] [address] Performed By: #### 3 040-3 #### [facility] CLIA [id number] [address] Creatinine and Glomerular filtration rate.predicted panel (S/P/Bld) 97 mL/min/1.73m??? Normal >=60 [facility] Comment on above: Order Comment: Speci men Type: BLOOD SPECIMEN Ordering Facility: [facility] Address: [address] [place] [address] Result Comment: Gisela mated Glomerular Filtration Rate [...] GFR. Performed By: #### 3 040-3 #### [facility] CLIA [id number] [address] Glucose [Mass/Vol] 81 mg/dL Normal 74-99 [facility] Comment on above: Order Comment: Speci men Type: BLOOD SPECIMEN Ordering Facility: [facility] Address: [address] [place] [address] Result Comment: The [place] Diabetes [employer] (ADA) provides guidance for cutoff [...] Standards of Medical Care in Diabetes 2016, [place] [employer]. Diabetes Care. 2016.39(Suppl 1). Performed By: #### 3 040-3 #### [facility] CLIA [id number] [address] Potassium [Moles/Vol] 3.4 mmol/L Low 3.7-5.1 [facility] Comment on above: Order Comment: Monika dye Type: BLOOD SPECIMEN Ordering Facility: [facility] Address: [address] [place] [address] Performed By: #### 3 040-3 #### [facility] CLIA [id number] [address] STATES [facility] Sodium [Moles/Vol] 137 mmol/L Normal 136-144 [facility] Comment on above: Order Comment: Monika dye Type: BLOOD SPECIMEN Ordering Facility: [facility] Address: [address] [place] [address] Performed By: #### 3 040-3 #### [facility] CLIA [id number] [address] [place] [facility] Urea nitrogen [Mass/Vol] 3 mg/dL Low 7-21 [facility] Comment on above: Order Comment: Monika dye Type: BLOOD SPECIMEN Ordering Facility: [facility] Address: [address] [place] [address] Performed By: #### 3 040-3 #### [facility] CLIA [id number] [address] OF [facility] CBC panel Auto (Bld)on 08-01 Erythrocyte distribution width (RBC) [Ratio] 21.2 % High 11.5-15.0 [facility] Comment on above: Order Comment: Speci men Type: BLOOD SPECIMEN Ordering Facility: [facility] Address: [address] [place] [address] Performed By: #### 3 040-3 #### [facility] CLIA [id number] [address] Hematocrit (Bld) [Volume fraction] 29.3 % Low 36.0-46.0 [facility] Comment on above: Order Comment: Speci men Type: BLOOD SPECIMEN Ordering Facility: [facility] Address: [address] [place] [address] Performed By: #### 3 040-3 #### [facility] CLIA [id number] [address] Hemoglobin (Bld) [Mass/Vol] 8.6 g/dL Low 11.5-15.5 [facility] Comment on above: Order Comment: Speci men Type: BLOOD SPECIMEN Ordering Facility: [facility] Address: [address] [place] [address] Performed By: #### 3 040-3 #### [facility] CLIA [id number] [address] MCH (RBC) [Entitic mass] 23.0 pg Low 26.0-34.0 [facility] Comment on above: Order Comment: Speci men Type: BLOOD SPECIMEN Ordering Facility: [facility] Address: [address] [place] [address] Performed By: #### 3 040-3 #### [facility] CLIA [id number] [address] [place] MCHC (RBC) [Mass/Vol] 29.4 g/dL Low 30.5-36.0 [facility] Comment on above: Order Comment: Speci men Type: BLOOD SPECIMEN Ordering Facility: [facility] Address: [address] [place] [address] Performed By: #### 3 040-3 #### [facility] CLIA [id number] [address] MCV (RBC) [Entitic vol] 78.3 fL Low 80.0-100.0 [facility] Comment on above: Order Comment: Speci men Type: BLOOD SPECIMEN Ordering Facility: [facility] Address: [address] [place] [address] Performed By: #### 3 040-3 #### [facility] CLIA [id number] [address] [place] Nucleated RBC (Bld) [#/Vol] 10*3/uL Normal <0.01 [facility] Comment on above: Order Comment: Speci men Type: BLOOD SPECIMEN Ordering Facility: [facility] Address: [address] [place] [address] Performed By: #### 3 040-3 #### [facility] CLIA [id number] [address] [place] Platelet mean volume (Bld) [Entitic vol] 8.7 fL Low 9.0-12.7 [facility] Comment on above: Order Comment: Speci men Type: BLOOD SPECIMEN Ordering Facility: [facility] Address: [address] [place] [address] Performed By: #### 3 040-3 #### [facility] CLIA [id number] [address] Platelets (Bld) [#/Vol] 512 10*3/uL High 150-400 [facility] Comment on above: Order Comment: Speci men Type: BLOOD SPECIMEN Ordering Facility: [facility] Address: [address] [place] [address] Performed By: #### 3 040-3 #### [facility] CLIA [id number] [address] [place] RBC (Bld) [#/Vol] 3.74 10*6/uL Low 3.90-5.20 [facility] Comment on above: Order Comment: Speci men Type: BLOOD SPECIMEN Ordering Facility: [facility] Address: [address] [place] [address] Performed By: #### 3 040-3 #### [facility] CLIA [id number] [address] [place] WBC (Bld) [#/Vol] 9.02 10*3/uL Normal 3.70-11.00 [facility] Comment on above: Order Comment: Speci men Type: BLOOD SPECIMEN Ordering Facility: [facility] Address: [facility] [place] [address] Performed By: #### 3 040-3 #### [facility] CLIA [id number] 1 [place] [id number] [facility] CNDSon 08-01-2024 CNDS HNO ID: [id number] Author: AUBREE IRELAND MD Service: General Surgery [...] Problems: Obesity (BMI 30-39.9) Current use of intermediate anticoagulation Gastric ulcer, acute with perforation and [...] you become constipated, you may use any zyvu-ixo-mtqvpta treatment such as Milk of Magnesia, Sennakot, Prune Juice, Suppositories, etc. in addition to the stool softener/fiber supplement Other: Do not use any NSAIDs Use acetaminophen (Tylenol) as recommended on the bottle Use the dispensed medication (see prescription) You should use an lnzh-zno-sinqott stool softener (Docusate sodium) and/or a fiber [...] When: In 2 weeks Aubree Ireland MD [phone] [place] [address] PCP Requested Referral Additional Provider to Provider [...] Wound Typ (more content not included)... Normal [facility] NURSING PROGon 08-01-2024 NURSING PROG HNO ID: [id number] Author: GRADY HARRIS RN Service: Nursing Author [...] heparin drip until patient is discharged. Normal [facility] THERAPY NTon 08-01-2024 THERAPY NT HNO ID: [id number] Author: AUBREE SHORT, OTR/L Service: Occupational Therapy Author Type: Occupational Therapist Type: Therapy (PT/OT/Speech/Resp) Filed: 08/01/2024 15:28 Note Text: Occupational Therapy Evaluation Summary SERVICE DATE: 08/01/2024 SERVICE TIME: 1428 to 1502 ROOM: [id number] DISCHARGE RECOMMENDATIONS Home OT Recommended Discharge Disposition [...] daily living (ADL) TREATMENT INTERVENTIONS Evaluation, Self Long-Term Management (53627) Timed Code Treatment (minutes): 13 Skilled Treatment Time (minutes): 28 $ Evaluation - Low (01258) Billed Units: 1 unit Self Long-Term Management (35471) Treatment Minutes: 13 $ Self Long-Term Management (74757) Billed Units: 1 unit Provided patient with [...] August 01, 2024 TIME: 3:18 PM Normal [facility] aPTT PPPon 08-01-2024 aPTT Coag (PPP) [Time] 78.0 s High 23.0-32.4 [facility] Comment on above: Order Comment: Speci men Type: BLOOD SPECIMEN Ordering Facility: [facility] Address: [address] [place] [address] Performed By: #### 3 040-3 #### [facility] CLIA [id number] 1 [place], [place] [id number] [place] [address] [place] aPTT Coag (PPP) [Time] 61.1 s High 23.0-32.4 [facility] Comment on above: Order Comment: Speci men Type: BLOOD SPECIMEN Ordering Facility: [facility] Address: [facility] [place] [address] Performed By: #### 1 4979-9 #### [facility] CLIA [id number] [address] [place] ANES POSTPROC EVALon 024 ANES POSTPROC EVAL HNO ID: [id number] Author: BRIE HODGE MD, PhD Service: Anesthesiology Author Type: Anesthesiologist Type: Anesthesia Postprocedure Evaluation Filed: 07/31/2024 16:23 Note Text: POST ANESTHESIA EVALUATION NOTE : 1955 Procedure Summary Date: 07/31/24 Room / Location: [facility] Anesthesia Start: 1428 Anesthesia Stop: 1445 Procedure: [...] July 31, 2024 TIME: 4:22 PM CSN: [id number] Normal [facility] ANES PRE-OPon 07-31-2024 [facility] PRE-OP HNO ID: [id number] Author: BRIE HODGE MD, PhD Service: Anesthesiology [...] and consent discussed: yes. Patient / Responsible Alliance Party agrees to proceed: yes Patient / Surrogate [...] mouth twice (more content not included)... Normal [facility] Basic metabolic 2000 panelon 07-31-2024 Anion gap [Moles/Vol] 16 mmol/L High 8-15 [facility] Comment on above: Order Comment: Speci men Type: BLOOD SPECIMEN Ordering Facility: [facility] Address: [address] [place] [address] Performed By: #### 3 040-3 #### [facility] CLIA [id number] 1 [place] [address] [place] Calcium [Mass/Vol] 7.8 mg/dL Low 8.5-10.2 [facility] Comment on above: Order Comment: Speci men Type: BLOOD SPECIMEN Ordering Facility: [facility] Address: [address] [place] [address] Performed By: #### 3 040-3 #### [facility] CLIA [id number] [address] Chloride [Moles/Vol] 99 mmol/L Normal 98-107 [facility] Comment on above: Order Comment: Speci men Type: BLOOD SPECIMEN Ordering Facility: [facility] Address: [address] [place] [address] Performed By: #### 3 040-3 #### [facility] CLIA [id number] [address] CO2 [Moles/Vol] 18 mmol/L Low 22-30 [facility] Comment on above: Order Comment: Speci men Type: BLOOD SPECIMEN Ordering Facility: [facility] Address: [address] [place] [address] Performed By: #### 3 040-3 #### [facility] CLIA [id number] [address] Creatinine [Mass/Vol] 0.62 mg/dL Normal 0.58-0.96 [facility] Comment on above: Order Comment: Speci men Type: BLOOD SPECIMEN Ordering Facility: [facility] Address: [address] [place] [address] Performed By: #### 3 040-3 #### [facility] CLIA [id number] [address] Creatinine and Glomerular filtration rate.predicted panel (S/P/Bld) 97 mL/min/1.73m??? Normal >=60 [facility] Comment on above: Order Comment: Speci men Type: BLOOD SPECIMEN Ordering Facility: [facility] Address: [address] [place] [address] Result Comment: Gisela mated Glomerular Filtration Rate [...] Performed By: #### 3 040-3 #### [facility] CLIA [id number] 1 [place] [address] [place] Glucose [Mass/Vol] 61 mg/dL Low 74-99 [facility] Comment on above: Order Comment: Monika dye Type: BLOOD SPECIMEN Ordering Facility: [facility] Address: [address] [place] [address] Result Comment: The [place] [employer] (ADA) provides guidance for cutoff [...] Standards of Medical Care in Diabetes 2016, [place] [employer]. Diabetes Care. 2016.39(Suppl 1). Performed By: #### 3 040-3 #### [facility] CLIA [id number] 1 [place] [address] [place] Potassium [Moles/Vol] 3.2 mmol/L Low 3.7-5.1 [facility] Comment on above: Order Comment: Monika dye Type: BLOOD SPECIMEN Ordering Facility: [facility] Address: [address] [place] [address] Performed By: #### 3 040-3 #### [facility] CLIA [id number] 1 [place] [address] [place] Sodium [Moles/Vol] 133 mmol/L Low 136-144 [facility] Comment on above: Order Comment: Monika men Type: BLOOD SPECIMEN Ordering Facility: [facility] Address: [address] [place] [address] Performed By: #### 3 040-3 #### [facility] CLIA [id number] 1 [place] [address] [place] Urea nitrogen [Mass/Vol] 6 mg/dL Low 7-21 [facility] Comment on above: Order Comment: Speci men Type: BLOOD SPECIMEN Ordering Facility: [facility] Address: [address] [place] [address] Performed By: #### 3 040-3 #### [facility] CLIA [id number] [address] CBC panel Auto (Bld)on 07-31 Erythrocyte distribution width (RBC) [Ratio] 21.6 % High 11.5-15.0 [facility] Comment on above: Order Comment: Speci men Type: BLOOD SPECIMEN Ordering Facility: [facility] Address: [address] [place] [address] Performed By: #### 3 040-3 #### [facility] CLIA [id number] [address] Hematocrit (Bld) [Volume fraction] 31.9 % Low 36.0-46.0 [facility] Comment on above: Order Comment: Speci men Type: BLOOD SPECIMEN Ordering Facility: [facility] Address: [address] [place] [address] Performed By: #### 3 040-3 #### [facility] CLIA [id number] [address] Hemoglobin (Bld) [Mass/Vol] 8.9 g/dL Low 11.5-15.5 [facility] Comment on above: Order Comment: Speci men Type: BLOOD SPECIMEN Ordering Facility: [facility] Address: [address] [place] [address] Performed By: #### 3 040-3 #### [facility] CLIA [id number] [address] MCH (RBC) [Entitic mass] 22.6 pg Low 26.0-34.0 [facility] Comment on above: Order Comment: Speci men Type: BLOOD SPECIMEN Ordering Facility: [facility] Address: [address] [place] [address] Performed By: #### 3 040-3 #### [facility] CLIA [id number] [address] MCHC (RBC) [Mass/Vol] 27.9 g/dL Low 30.5-36.0 [facility] Comment on above: Order Comment: Speci men Type: BLOOD SPECIMEN Ordering Facility: [facility] Address: [address] [place] [address] Performed By: #### 3 040-3 #### [facility] CLIA [id number] [address] MCV (RBC) [Entitic vol] 81.0 fL Normal 80.0-100.0 [facility] Comment on above: Order Comment: Speci men Type: BLOOD SPECIMEN Ordering Facility: [facility] Address: [address] [place] [address] Performed By: #### 3 040-3 #### [facility] CLIA [id number] [address] Nucleated RBC (Bld) [#/Vol] 10*3/uL Normal <0.01 [facility] Comment on above: Order Comment: Speci men Type: BLOOD SPECIMEN Ordering Facility: [facility] Address: [address] [place] [address] Performed By: #### 3 040-3 #### [facility] CLIA [id number] [address] Platelet mean volume (Bld) [Entitic vol] 8.9 fL Low 9.0-12.7 [facility] Comment on above: Order Comment: Speci men Type: BLOOD SPECIMEN Ordering Facility: [facility] Address: [address] [place] [address] Performed By: #### 3 040-3 #### [facility] CLIA [id number] [address] Platelets (Bld) [#/Vol] 576 10*3/uL High 150-400 [facility] Comment on above: Order Comment: Speci men Type: BLOOD SPECIMEN Ordering Facility: [facility] Address: [address] [place], [place] [address] Performed By: #### 3 040-3 #### [facility] CLIA [id number] [address] [place] RBC (Bld) [#/Vol] 3.94 10*6/uL Normal 3.90-5.20 [facility] Comment on above: Order Comment: Speci men Type: BLOOD SPECIMEN Ordering Facility: [facility] Address: [address] [place] [address] Performed By: #### 3 040-3 #### [facility] CLIA [id number] [address] [place] WBC (Bld) [#/Vol] 10.01 10*3/uL Normal 3.70-11.00 [facility] Comment on above: Order Comment: Speci men Type: BLOOD SPECIMEN Ordering Facility: [facility] Address: [address] [place] [address] Performed By: #### 3 040-3 #### [facility] CLIA [id number] [address] CONSULTon 07-31-2024 CONSULT HNO ID: [id number] Author: BELEN MENARD APRN.CNP Service: Gastroenterology Author [...] warfarin), hypothyroidism and RA who presents to [facility] as transfer from [facility]. Presented to [facility] on 07/28/2024. On 07/29 lab as follows: [...] and knees COPD (chronic obstructive pulmonary disease) ([facility]) DVT (deep venous thrombosis) ([facility]) 2005 IBS (irritable bowel syndrome) Insomnia RA (rheumatoid arthritis) ([facility]) PAST SURGICAL HISTORY Procedure Laterality Date CARPAL [...] BEDTIME levothy (more content not included)... Normal [facility] Hepatic function 2000 panelo n 07-31-2024 Albumin [Mass/Vol] 2.0 g/dL Low 3.9-4.9 [facility] Comment on above: Order Comment: Speci men Type: BLOOD SPECIMEN Ordering Facility: [facility] Address: [address] [place] [address] [place] [id number] Performed By: #### 1 8538-9 #### [facility] CLIA [id number] [address] ALP [Catalytic activity/Vol] 88 U/L Normal 34-123 [facility] Comment on above: Order Comment: Speci men Type: BLOOD SPECIMEN Ordering Facility: [facility] Address: [address] [place] [address] Performed By: #### 1 4979-9 #### [facility] CLIA [id number] [address] [place] ALT With P-5'-P [Catalytic activity/Vol] 6 U/L Low 7-38 [facility] Comment on above: Order Comment: Speci men Type: BLOOD SPECIMEN Ordering Facility: [facility] Address: [address] [place] [address] Performed By: #### 1 4979-9 #### [facility] CLIA [id number] [address] AST With P-5'-P [Catalytic activity/Vol] 14 U/L Normal 13-35 [facility] Comment on above: Order Comment: Speci men Type: BLOOD SPECIMEN Ordering Facility: [facility] Address: [address] [place] [address] Performed By: #### 1 4979-9 #### [facility] CLIA [id number] [address] Bilirubin [Mass/Vol] 0.4 mg/dL Normal 0.2-1.3 [facility] Comment on above: Order Comment: Speci men Type: BLOOD SPECIMEN Ordering Facility: [facility] Address: [address] [place] [address] Performed By: #### 1 4979-9 #### [facility] CLIA [id number] [address] Bilirubin.conjugated [Mass/Vol] mg/dL Normal <0.2 [facility] Comment on above: Order Comment: Speci men Type: BLOOD SPECIMEN Ordering Facility: [facility] Address: [address] [place] [address] Performed By: #### 1 4979-9 #### [facility] CLIA [id number] 1 [place] [address] [place] Protein [Mass/Vol] 5.7 g/dL Low 6.3-8.0 [facility] Comment on above: Order Comment: Speci men Type: BLOOD SPECIMEN Ordering Facility: [facility] Address: [address] [place], [place] [address] Performed By: #### 1 4979-9 #### [facility] CLIA [id number] 1 [place] [address] [place] NURSING PROGon 07-31-2024 NURSING PROG HNO ID: [id number] Author: TELLO DENNEY RN Service: Nursing Author Type: Registered Nurse Type: Nursing Progress Note Filed: 07/31/2024 15:16 Note Text: Attempted to call report to floor RN. On hold for 10 minutes. Called back and left message for floor RN to call this nurse back. Normal [facility] THERAPY NTon 07-31-2024 THERAPY NT HNO ID: [id number] Author: GM SALDAÑA OTR/Linus Service: Occupational Therapy Author Type: Occupational Therapist Type: Therapy (PT/OT/Speech/Resp) Filed: 07/31/2024 14:33 Note Text: OCCUPATIONAL THERAPY MISSED VISIT SERVICE DATE: 07/31/2024 SERVICE TIME: 1433 ROOM: [facility]) Patient not seen due to Test / Procedure. SIGNATURE: ABDI Garcia/Linus PATIENT NAME: Amna Sequeira DATE: July 31, 2024 TIME: 2:33 PM Normal [facility] THERAPY NT HNO ID: [id number] Author: LISSETTE MINAYA, PT Service: Physical Therapy Author Type: Physical Therapist Type: Therapy (PT/OT/Speech/Resp) Filed: 07/31/2024 13:05 Note Text: Physical Therapy Evaluation Summary SERVICE DATE: 07/31/2024 SERVICE TIME: 1054 to 1130 ROOM: [place] [address] PT 6 Clicks Score: 12 DISCHARGE RECOMMENDATIONS [...] Reduced mobility-other TREATMENT INTERVENTIONS Evaluation, Therapeutic Activity (84947) $ Evaluation-Moderate (04838) Billed Units: 1 unit Therapeutic Activity (63607) Treatment Minutes: 10 $ Therapeutic Activity (65967) Billed Units: 1 unit Facilitated mobility as [...] Stand with (more content not included)... Normal [facility] Upper GI endoscopyon 024 Upper GI endoscopy [facility] Gastrointestinal Endoscopy Patient Name: Amna Sequeira Procedure Date: 07/31/2024 2:22 PM Date of : 1955 Admit Type: Inpatient Room: [place] [address] Gender: Female Note Status: Finalized Attending MD: Yaya Howard MD, [id number] Procedure: Upper GI endoscopy Indications: Abnormal CT [...] of therapy. Procedure Code(s): --- Professional --- 70203, Esophagogastroduodenoscop y, flexible, transoral; diagnostic, including collection of specimen(s) by brushing or washing, when performed (separate procedure) --- Technical --- 32767, Esophagogastroduodenoscop y, flexible, transoral; diagnostic, including collection [...] parts of digestive tract CPT copyright 2020 [employer]. All rights reserved. The codes documented (more content not included)... Normal [facility] aPTT PPPon 07-31-2024 aPTT Coag (PPP) [Time] 113.7 s High 23.0-32.4 [facility] Comment on above: Order Comment: Monika dye Type: BLOOD SPECIMEN Ordering Facility: [facility] Address: [address] [place] [address] Performed By: #### 1 4979-9 #### [facility] CLIA [id number] [address] [place] [address] [place] aPTT Coag (PPP) [Time] 42.4 s High 23.0-32.4 [facility] Comment on above: Order Comment: Monika dye Type: BLOOD SPECIMENOrdering Facility: [facility] Address: [address] [place] [address] Performed By: #### 1 4979-9 ####[facility] [id number] [address] aPTT Coag (PPP) [Time] 112.6 s High 23.0-32.4 [facility] Comment on above: Order Comment: Speci men Type: BLOOD SPECIMEN Ordering Facility: [facility] Address: [address] [place] [address] Performed By: #### 1 4979-9 #### [facility] CLIA [id number] [address] aPTT Coag (PPP) [Time] 132.4 s High 23.0-32.4 [facility] Comment on above: Order Comment: Speci men Type: BLOOD SPECIMENOrdering Facility: [facility] Address: [address] [place] [address] Performed By: #### 1 4979-9 ####[facility] [id number] [address] [place] Basic metabolic 2000 panelon 07-30-2024 Anion gap [Moles/Vol] 17 mmol/L High 8-15 [facility] Comment on above: Order Comment: Speci men Type: BLOOD SPECIMEN Ordering Facility: [facility] Address: [address] [place] [address] Performed By: #### 1 4979-9 #### [facility] CLIA [id number] [address] [place] Calcium [Mass/Vol] 7.7 mg/dL Low 8.5-10.2 [facility] Comment on above: Order Comment: Speci men Type: BLOOD SPECIMEN Ordering Facility: [facility] Address: [address] [place] [address] Performed By: #### 1 4979-9 #### [facility] CLIA [id number] [address] Chloride [Moles/Vol] 99 mmol/L Normal 98-107 [facility] Comment on above: Order Comment: Speci men Type: BLOOD SPECIMEN Ordering Facility: [facility] Address: [address] [place] [address] Performed By: #### 1 4979-9 #### [facility] CLIA [id number] [address] [place] CO2 [Moles/Vol] 20 mmol/L Low 22-30 [facility] Comment on above: Order Comment: Speci men Type: BLOOD SPECIMEN Ordering Facility: [facility] Address: [address] [place] [address] Performed By: #### 1 4979-9 #### [facility] CLIA [id number] [address] [place] Creatinine [Mass/Vol] 0.60 mg/dL Normal 0.58-0.96 [facility] Comment on above: Order Comment: Speci men Type: BLOOD SPECIMEN Ordering Facility: [facility] Address: [address] [place] [address] Performed By: #### 1 4979-9 #### [facility] CLIA [id number] [address] Creatinine and Glomerular filtration rate.predicted panel (S/P/Bld) 97 mL/min/1.73m??? Normal >=60 [facility] Comment on above: Order Comment: Speci men Type: BLOOD SPECIMEN Ordering Facility: [facility] Address: [address] [place] [address] Result Comment: Gisela mated Glomerular Filtration Rate [...] 1 4979-9 #### [facility] CLIA [id number] [address] [place] Glucose [Mass/Vol] 58 mg/dL Low 74-99 [facility] Comment on above: Order Comment: Monika dye Type: BLOOD SPECIMEN Ordering Facility: [facility] Address: [address] [place] [address] Result Comment: The [place] Diabetes Association (ADA) provides guidance for cutoff [...] Standards of Medical Care in Diabetes 2016, [place] [employer]. Diabetes Care. 2016.39(Suppl 1). Performed By: #### 1 4979-9 #### [facility] CLIA [id number] [address] [place] [address] [place] Potassium [Moles/Vol] 3.7 mmol/L Normal 3.7-5.1 [facility] Comment on above: Order Comment: Monika dye Type: BLOOD SPECIMEN Ordering Facility: [facility] Address: [address] [place] [address] Performed By: #### 1 4979-9 #### [facility] CLIA [id number] [address] [place] Sodium [Moles/Vol] 136 mmol/L Normal 136-144 [facility] Comment on above: Order Comment: Isabelai men Type: BLOOD SPECIMEN Ordering Facility: [facility] Address: [address] [place] [address] Performed By: #### 1 4979-9 #### [facility] CLIA [id number] [address] [place] [address] [place] Urea nitrogen [Mass/Vol] 7 mg/dL Normal 7-21 [facility] Comment on above: Order Comment: Isabelai men Type: BLOOD SPECIMEN Ordering Facility: [facility] Address: [address] [place] [address] Performed By: #### 1 4979-9 #### [facility] CLIA [id number] [address] STATES [facility] CBC panel Auto (Bld)on 07-30 Erythrocyte distribution width (RBC) [Ratio] 21.3 % High 11.5-15.0 [facility] Comment on above: Order Comment: Speci men Type: BLOOD SPECIMENOrdering Facility: [facility] Address: [address] [place] [address] Performed By: #### 5 8410-2 ####[facility] LABORATORYCLIA [id number] [address] Hematocrit (Bld) [Volume fraction] 29.7 % Low 36.0-46.0 [facility] Comment on above: Order Comment: Speci men Type: BLOOD SPECIMENOrdering Facility: [facility] Address: [address] [place] [address] Performed By: #### 5 8410-2 ####[facility] LABORATORYCLIA [id number] [address] Hemoglobin (Bld) [Mass/Vol] 8.8 g/dL Low 11.5-15.5 [facility] Comment on above: Order Comment: Speci men Type: BLOOD SPECIMENOrdering Facility: [facility] Address: [address] [place] [address] Performed By: #### 5 8410-2 ####[facility] LABORATORYCLIA [id number] [address] STATES [facility] MCH (RBC) [Entitic mass] 23.2 pg Low 26.0-34.0 [facility] Comment on above: Order Comment: Speci men Type: BLOOD SPECIMENOrdering Facility: [facility] Address: [address] [place] [address] Performed By: #### 5 8410-2 ####[facility] LABORATORYCLIA [id number] [address] [place] MCHC (RBC) [Mass/Vol] 29.6 g/dL Low 30.5-36.0 [facility] Comment on above: Order Comment: Speci men Type: BLOOD SPECIMENOrdering Facility: [facility] Address: [address] [place] [address] Performed By: #### 5 8410-2 ####[facility] LABORATORYCLIA [id number] [address] [place] MCV (RBC) [Entitic vol] 78.2 fL Low 80.0-100.0 [facility] Comment on above: Order Comment: Speci men Type: BLOOD SPECIMENOrdering Facility: [facility] Address: [address] [place] [address] Performed By: #### 5 8410-2 ####[facility] LABORATORYCLIA [id number] [address] [place] Nucleated RBC (Bld) [#/Vol] 10*3/uL Normal <0.01 [facility] Comment on above: Order Comment: Speci men Type: BLOOD SPECIMENOrdering Facility: [facility] Address: [address] [place] [address] Performed By: #### 5 8410-2 ####[facility] LABORATORYCLIA [id number] [address] [place] Platelet mean volume (Bld) [Entitic vol] 9.2 fL Normal 9.0-12.7 [facility] Comment on above: Order Comment: Speci men Type: BLOOD SPECIMENOrdering Facility: [facility] Address: [address] [place] [address] Performed By: #### 5 8410-2 ####[facility] LABORATORYCLIA [id number] [address] [place] Platelets (Bld) [#/Vol] 548 10*3/uL High 150-400 [facility] Comment on above: Order Comment: Speci men Type: BLOOD SPECIMENOrdering Facility: [facility] Address: [address] [place] [address] Performed By: #### 5 8410-2 ####[facility] LABORATORYCLIA [id number] [address] STATES OF [facility] RBC (Bld) [#/Vol] 3.80 10*6/uL Low 3.90-5.20 [facility] Comment on above: Order Comment: Monika dye Type: BLOOD SPECIMENOrdering Facility: [facility] Address: [address] [place] [address] Performed By: #### 5 8410-2 ####[facility] LABORATORYCLIA [id number] [place] [id number] [facility] WBC (Bld) [#/Vol] 11.50 10*3/uL High 3.70-11.00 [facility] Comment on above: Order Comment: Monika dye Type: BLOOD SPECIMENOrdering Facility: [facility] Address: [address] [place] [address] Performed By: #### 5 8410-2 ####[facility] LABORATORYCLIA [id number] [address] CONSULTon 07-30-2024 CONSULT HNO ID: [id number] Author: AUBREE IRELAND MD Service: General Surgery [...] to the ED as a transfer from [place] with symptoms of vomiting x 2 months. [...] pulmonary disease) (HCC) DVT (deep venous thrombosis) ([facility]) 2005 IBS (irritable bowel syndrome) Insomnia RA (rheumatoid arthritis) ([facility]) PAST SURGICAL HISTORY Procedure Laterality Date CARPAL [...] by mouth (more content not included)... Normal [facility] CONSULT HNO ID: [id number] Author: OSVALDO SEGURA MD Service: Pain Management [...] DVTs on Coumadin, hypothyroidism transferred 07/28 from [place] with nausea, emesis, anorexia, 30 pound weight [...] Patient is followed by Dr. Simon in [place] for chronic pain management. Home pain regimen [...] Puff inhale (more content not included)... Normal [facility] CONSULT PROGon 07-30-2024 CONSULT PROG HNO ID: [id number] Author: CHANTEL VILLATORO RPh Service: Pharmacy Author [...] pharmacy if there are questions. Chantel Villatoro [facility] NUTRITIONon 07-30-2024 NUTRITION HNO ID: [id number] Author: BARBARA CHAUDHARI RD Service: Nutrition Therapy [...] Weight Type: Current weight Estimated kilocalorie needs: 1454-4805 Calorie Calculation Method: 20-25 kcals/kg Estimated protein [...] July 30, 2024 TIME: 1009 AM Normal [facility] aPTT PPPon 07-30-2024 aPTT Coag (PPP) [Time] 123.4 s High 23.0-32.4 [facility] Comment on above: Order Comment: Speci men Type: BLOOD SPECIMENOrdering Facility: [facility] Address: [address] [place] [address] Performed By: #### 1 4979-9 ####[facility] LABORATORYCLIA [id number] [address] STATES OF [facility] aPTT Coag (PPP) [Time] s High 23.0-32.4 [facility] Comment on above: Order Comment: Speci men Type: BLOOD SPECIMEN Ordering Facility: [facility] Address: [address] [place] [address] Performed By: #### 1 4979-9 #### [facility] CLIA [id number] [address] OF [facility] aPTT Coag (PPP) [Time] 47.7 s High 23.0-32.4 [facility] Comment on above: Order Comment: Speci men Type: BLOOD SPECIMENOrdering Facility: [facility] Address: [address] [place] [address] Performed By: #### 1 4979-9 ####[facility] LABORATORYCLIA [id number] [address] OF [facility] ALLIED HEALTHon 07-29-2024 ALLIED HEALTH HNO ID: [id number] Author: SMILEY WHELAN RT(R) Service: Radiology Author [...] PATIENT PRESENTS WITH AN IMPLANTABLE OR ATTACHED SUPPLY CHAIN PROCUREMENT MANAGER: No ALLERGIES: Reviewed and unchanged CONTRAST ALLERGY: [...] July 29, 2024 TIME: 11:08 AM Normal [facility] Basic metabolic 2000 panelon 07-29-2024 Anion gap [Moles/Vol] 11 mmol/L Normal 8-15 [facility] Comment on above: Order Comment: Speci men Type: BLOOD SPECIMEN Ordering Facility: [facility] Address: [address] [place] [address] Performed By: #### 2 4321-2 #### [facility] CLIA [id number] [address] [place] [address] [place] Calcium [Mass/Vol] 8.1 mg/dL Low 8.5-10.2 [facility] Comment on above: Order Comment: Speci men Type: BLOOD SPECIMEN Ordering Facility: [facility] Address: [address] [place] [address] Performed By: #### 2 4321-2 #### [facility] CLIA [id number] 1 [place] [address] [place] Chloride [Moles/Vol] 103 mmol/L Normal 98-107 [facility] Comment on above: Order Comment: Speci men Type: BLOOD SPECIMEN Ordering Facility: [facility] Address: [address] [place] [address] Performed By: #### 2 4321-2 #### [facility] CLIA [id number] [address] [place] [address] [place] CO2 [Moles/Vol] 23 mmol/L Normal 22-30 [facility] Comment on above: Order Comment: Speci men Type: BLOOD SPECIMEN Ordering Facility: [facility] Address: [address] [place] [address] Performed By: #### 2 4321-2 #### [facility] CLIA [id number] 1 [place] [address] [place] Creatinine [Mass/Vol] 0.63 mg/dL Normal 0.58-0.96 [facility] Comment on above: Order Comment: Speci men Type: BLOOD SPECIMEN Ordering Facility: [facility] Address: [address] [place] [address] Performed By: #### 2 4321-2 #### [facility] CLIA [id number] [address] [place] [address] Creatinine and Glomerular filtration rate.predicted panel (S/P/Bld) 96 mL/min/1.73m??? Normal >=60 [facility] Comment on above: Order Comment: Monika dye Type: BLOOD SPECIMEN Ordering Facility: [facility] Address: [address] [place] [address] Result Comment: Gisela mated Glomerular Filtration Rate [...] GFR. Performed By: #### 2 4321-2 #### [facility] CLIA [id number] [address] [place] [address] [place] Glucose [Mass/Vol] 82 mg/dL Normal 74-99 [facility] Comment on above: Order Comment: Monika dye Type: BLOOD SPECIMEN Ordering Facility: [facility] Address: [address] [place] [address] Result Comment: The [place] Diabetes Association (ADA) provides guidance for cutoff [...] Standards of Medical Care in Diabetes 2016, [place] [employer]. Diabetes Care. 2016.39(Suppl 1). Performed By: #### 2 4321-2 #### [facility] CLIA [id number] [address] [place] Potassium [Moles/Vol] 3.6 mmol/L Low 3.7-5.1 [facility] Comment on above: Order Comment: Speci men Type: BLOOD SPECIMEN Ordering Facility: [facility] Address: [address] [place] [address] Performed By: #### 2 4321-2 #### [facility] CLIA [id number] [address] [place] Sodium [Moles/Vol] 137 mmol/L Normal 136-144 [facility] Comment on above: Order Comment: Speci men Type: BLOOD SPECIMEN Ordering Facility: [facility] Address: [address] [place] [address] Performed By: #### 2 4321-2 #### [facility] CLIA [id number] [address] STATES OF [facility] Urea nitrogen [Mass/Vol] 10 mg/dL Normal 7-21 [facility] Comment on above: Order Comment: Speci men Type: BLOOD SPECIMEN Ordering Facility: [facility] Address: [address] [place] [address] Performed By: #### 2 4321-2 #### [facility] CLIA [id number] 1 [place] [address] [place] CBC W/Diff, Automatedon 09-3 PATH REV [address] Normal [facility] Comment on above: Result Comment: Neut rophilic leukocytosis. Microcytic anemia. Thrombocytosis. Clinical correlation necessary. Hi Jenkins M.D. 07/29/24 Neutrophilic leukocytosis. Microcytic anemia. Thrombocytosis. Clinical correlation necessary. Hi Jenkins M.D. 07/29/24 AMENDED REPORT 07/29/24 1259 PATH REV previously reported as: February Performed By: #### L 100.0100, L500.4050, L501.2450 #### [facility] [address] [place], [place], [id number] CBC panel Auto (Bld)on 07-29 Erythrocyte distribution width (RBC) [Ratio] 21.2 % High 11.5-15.0 [facility] Comment on above: Order Comment: Speci men Type: BLOOD SPECIMEN Ordering Facility: [facility] Address: [address] [place] [address] Performed By: #### 3 040-3 #### [facility] CLIA [id number] [address] OF [facility] Hematocrit (Bld) [Volume fraction] 30.8 % Low 36.0-46.0 [facility] Comment on above: Order Comment: Speci men Type: BLOOD SPECIMEN Ordering Facility: [facility] Address: [address] [place] [address] Performed By: #### 3 040-3 #### [facility] CLIA [id number] [address] STATES OF [facility] Hemoglobin (Bld) [Mass/Vol] 9.1 g/dL Low 11.5-15.5 [facility] Comment on above: Order Comment: Speci men Type: BLOOD SPECIMEN Ordering Facility: [facility] Address: [address] [place] [address] Performed By: #### 3 040-3 #### [facility] CLIA [id number] [address] [place] MCH (RBC) [Entitic mass] 23.0 pg Low 26.0-34.0 [facility] Comment on above: Order Comment: Speci men Type: BLOOD SPECIMEN Ordering Facility: [facility] Address: [address] [place] [address] Performed By: #### 3 040-3 #### [facility] CLIA [id number] [address] MCHC (RBC) [Mass/Vol] 29.5 g/dL Low 30.5-36.0 [facility] Comment on above: Order Comment: Speci men Type: BLOOD SPECIMEN Ordering Facility: [facility] Address: [address] [place] [address] Performed By: #### 3 040-3 #### [facility] CLIA [id number] [address] MCV (RBC) [Entitic vol] 78.0 fL Low 80.0-100.0 [facility] Comment on above: Order Comment: Speci men Type: BLOOD SPECIMEN Ordering Facility: [facility] Address: [address] [place] [address] Performed By: #### 3 040-3 #### [facility] CLIA [id number] [address] Nucleated RBC (Bld) [#/Vol] 10*3/uL Normal <0.01 [facility] Comment on above: Order Comment: Speci men Type: BLOOD SPECIMEN Ordering Facility: [facility] Address: [address] [place] [address] Performed By: #### 3 040-3 #### [facility] CLIA [id number] [address] Platelet mean volume (Bld) [Entitic vol] 8.6 fL Low 9.0-12.7 [facility] Comment on above: Order Comment: Speci men Type: BLOOD SPECIMEN Ordering Facility: [facility] Address: [address] [place] [address] Performed By: #### 3 040-3 #### [facility] CLIA [id number] [address] Platelets (Bld) [#/Vol] 565 10*3/uL High 150-400 [facility] Comment on above: Order Comment: Speci men Type: BLOOD SPECIMEN Ordering Facility: [facility] Address: [address] [place] [address] Performed By: #### 3 040-3 #### [facility] CLIA [id number] [address] [place] RBC (Bld) [#/Vol] 3.95 10*6/uL Normal 3.90-5.20 [facility] Comment on above: Order Comment: Speci men Type: BLOOD SPECIMEN Ordering Facility: [facility] Address: [address] [place] [address] Performed By: #### 3 040-3 #### [facility] CLIA [id number] [address] WBC (Bld) [#/Vol] 16.36 10*3/uL High 3.70-11.00 [facility] Comment on above: Order Comment: Speci men Type: BLOOD SPECIMEN Ordering Facility: [facility] Address: [address] [place] [address] Performed By: #### 3 040-3 #### [facility] CLIA [id number] [address] CONFIRM BLOOD TYPEon 024 ABO A Normal [facility] Comment on above: Order Comment: Speci men Type: BLOOD SPECIMENOrdering Facility: [facility] Address: [address] [place] [address] Performed By: #### C ONABO ####[facility] BLOOD BANKCLIA [id number] [address] Rh Nom (Bld) Negative Normal [facility] Comment on above: Order Comment: Speci men Type: BLOOD SPECIMENOrdering Facility: [facility] Address: [address] [place] [address] Performed By: #### C ONABO ####[facility] BLOOD BANKCLIA [id number] [address] CONSULT PROGon 07-29-2024 CONSULT PROG HNO ID: [id number] Author: BELEN PERES RPh Service: Pharmacy Author [...] have any questions, [place] [phone]. Age: [age] year old Allergies: ALLERGIES Allergen [...] No results found for: ROBERT Peres, Pharm.D., [facility] CT ABD/PEL W IVCONon 024 CT ABD/PEL W IVCON * * *Final Report* * * DATE OF EXAM: Jul 29 2024 11:10AM [facility] 0530 - CT ABD/PEL W IVCON [...] lesser sac (more content not included)... Normal [facility] ED NOTEon 07-29-2024 ED NOTE HNO ID: [id number] Author: YENNIFER ACOSTA RN Service: Emergency Medicine Author Type: Registered Nurse Type: ED Notes Filed: 07/29/2024 04:37 Note Text: Patient put on 2L O2 for o2 Sat 91% while sleeping Normal [facility] ED NOTE HNO ID: [id number] Author: YENNIFER ACOSTA RN Service: Emergency Medicine Author Type: Registered Nurse Type: ED Notes Filed: 07/29/2024 01:53 Note Text: Resident Elly Graham at bedside to clarify heparin orders with patient Normal [facility] ED NOTE HNO ID: [id number] Author: YENNIFER ACOSTA RN Service: Emergency Medicine Author Type: Registered Nurse Type: ED Notes Filed: 07/29/2024 01:48 Note Text: Pt requests clarification on reasoning behind heparin drip. Admitting paged. Normal [facility] H. pylori IgG IA Qlon 2023 H. PYLORI IGG, QUAL Negative Normal Negative [facility] Comment on above: Order Comment: Monika dye Type: BLOOD SPECIMEN Ordering Facility: [facility] Address: [address] [place] [address] Result Comment: Messi ot exclude H. pylori infection if the specimen collected 3-4 weeks after onset of symptoms. Performed By: #### 3 040-3 #### [facility] CLIA [id number] [address] STATES OF [facility] aPTT PPPon 07-29-2024 aPTT Coag (PPP) [Time] 70.3 s High 23.0-32.4 [facility] Comment on above: Order Comment: Monika dye Type: BLOOD SPECIMEN Ordering Facility: [facility] Address: [address] [place] [address] Performed By: #### 3 040-3 #### [facility] CLIA [id number] [address] OF [facility] aPTT Coag (PPP) [Time] 85.8 s High 23.0-32.4 [facility] Comment on above: Order Comment: Speci men Type: BLOOD SPECIMEN Ordering Facility: [facility] Address: [address] [place] [address] Performed By: #### 3 040-3 #### [facility] CLIA [id number] [address] aPTT Coag (PPP) [Time] 45.6 s High 23.0-32.4 [facility] Comment on above: Order Comment: Speci men Type: BLOOD SPECIMEN Ordering Facility: [facility] Address: [address] [place] [address] Performed By: #### 3 040-3 #### [facility] CLIA [id number] [address] aPTT Coag (PPP) [Time] 26.5 s Normal 23.0-32.4 [facility] Comment on above: Order Comment: Speci men Type: BLOOD SPECIMENOrdering Facility: [facility] Address: [address] [place] [address] Performed By: #### 1 4979-9 ####[facility] LABORATORYCLIA [id number] [address] OF [facility] 12 Lead EKGon 07-28-2024 12 Lead EKG [facility] [address] [place] [address] 12 Lead EKG 07/28/24 1615 MR#: [id number] Acct: [id number] Name: AMNA SEQUEIRA Rep #: [id number] : 1955 69 From: Raulito Lopez MD [...] ECG Confirmed by RAULITO LOPEZ MD ([id number]), slot editor BRADY AHNYA ([id number]) on 07/30/2024 6:32:33 AM Referred By: Confirmed By:RAULITO LOPEZ MD 07/30/24 0632 Date Raulito Lopez MD CC: Dr. Toribio Salvador MD; Dr. Galindo Gutierrez MD Signed Normal [facility] Abdomen/Pelvis W IV Cont ONL Yon 07-28-2024 Abdomen/Pelvis W IV Cont ONLY [facility] Imaging Services [address] [place], [place] [address] Abdomen/Pelvis W IV Cont ONLY MR#: [id number] Acct: [id number] Name: AMNA SEQUEIRA Rep #: [id number] : 1955 F 69 From: Yazan Saravia PCP: Dr. Galindo Gutierrez MD Status: DEP ER Study: Abdomen/Pelvis W IV Cont ONLY Date of Exam: Exam# [id number] Ordering Dr: Toribio Salvador MD ADDENDUM by Dr. Yazan Smith MD on 08/11/24 at 1400 ADDENDUM [id number] addendum: There is an IVC filter. Recommend [...] Smith MD on 07/28/24 at 1921 ADDENDUM [id number] ADDENDUM: Critical finding called and case discussed. 07/28/2024 7:19 PM Jeramy Kwan Infected pancreatic pseudocyst, contained gastric perforation with abscess formation, focal area of pancreatic necrosis is in the differential. Electronically Signed: Yazan Smith MD at 19:21 EDT Reading Location ID and State: [facility] / [place] , Service support , N.B. : The above Results were Read Back by Yazan Smith MD to Toribio Salvador MD, and understanding confirmed on 07/28/2024 18:35:12 (ET). 07/28/241920 Date cc: Dr. Toribio Salvador MD; Dr. Galindo Gutierrez MD * Signed ADDENDUM by Dr. Yazan Smith MD on 07/28/24 at 1829 [id number] STUDY: CT Abdomen And Pelvis W/ Contrast [...] Dr. Hernandez (more content not included)... Normal [facility] Comprehensive Metabolic Prof ilon 07-28-2024 Albumin [Mass/Vol] 2.1 g/dL Low 3.2-5.0 [facility] Comment on above: Performed By: #### L 100.0100, L500.4050, L501.2450 ####[facility] [address] [place], [address] Albumin/Globulin [Mass ratio] 0.4 {ratio} Low 0.9-2.4 [facility] Comment on above: Performed By: #### L 100.0100, L500.4050, L501.2450 ####[facility] [address] [place], [address] ALK P 120 U/L High 45-117 [facility] Comment on above: Performed By: #### L 100.0100, L500.4050, L501.2450 ####[facility] [address] [place], [address] ALT [Catalytic activity/Vol] 9 U/L Low 13-56 [facility] Comment on above: Performed By: #### L 100.0100, L500.4050, L501.2450 ####[facility] [address] [place], [address] AST [Catalytic activity/Vol] 17 U/L Normal 15-37 [facility] Comment on above: Result Comment: Slig ht Hemolysis, Result may be falsely increased. Performed By: #### L 100.0100, L500.4050, L501.2450 ####[facility] [address] [place], [address] Bilirubin [Mass/Vol] 0.80 mg/dL Normal 0.20-1.00 [facility] Comment on above: Result Comment: For patients on eltrombopag therapy, use of Dimension [place] TBIL is not recommended. Performed By: #### L 100.0100, L500.4050, L501.2450 ####[facility] [address] [place], [address] BUN/CRE 13.4 RATIO Normal 10-20 [facility] Comment on above: Performed By: #### L 100.0100, L500.4050, L501.2450 ####[facility] [address] [place], [address] CA,Total 8.7 mg/dL Normal 8.5-10.1 [facility] Comment on above: Performed By: #### L 100.0100, L500.4050, L501.2450 ####[facility] [address] [place], [address] Chloride [Moles/Vol] 102 mmol/L Normal 98-107 [facility] Comment on above: Performed By: #### L 100.0100, L500.4050, L501.2450 ####[facility] [address] [place], [address] CO2 [Moles/Vol] 26.0 mmol/L Normal 21.0-32.0 [facility] Comment on above: Performed By: #### L 100.0100, L500.4050, L501.2450 ####[facility] [address] [place], [address] Creatinine [Mass/Vol] 0.75 mg/dL Normal 0.55-1.02 [facility] Comment on above: Result Comment: The validity of the calculated GFR GFRAA in patients over 70 years has not been determined. Clinical correlation is essential. Performed By: #### L 100.0100, L500.4050, L501.2450 ####[facility] [address] [place], [address] ECRCL 69.28 ml/min Normal [facility] Comment on above: Performed By: #### L 100.0100, L500.4050, L501.2450 ####[facility] [address] [place], [address] EST GFR - AA 99 mL/min Normal >60 [facility] Comment on above: Result Comment: Afri can [place] GFR Calc Performed By: #### L 100.0100, L500.4050, L501.2450 ####[facility] [address] [place], [address] GAP 8 Normal 5-15 [facility] Comment on above: Performed By: #### L 100.0100, L500.4050, L501.2450 ####[facility] [address] [place], [address] GFR/1.73 sq M.predicted among non-blacks MDRD (S/P/Bld) [Vol rate/Area] 82 mL/min/{1.73_m2} Normal >60 [facility] Comment on above: Result Comment: Non- GFR Calc Performed By: #### L 100.0100, L500.4050, L501.2450 ####[facility] [address] [place], [address] Globulin (S) [Mass/Vol] 5.3 g/dL High 2.2-4.2 [facility] Comment on above: Performed By: #### L 100.0100, L500.4050, L501.2450 ####[facility] [address] [place], [address] Glucose [Mass/Vol] 97 mg/dL Normal 74-106 [facility] Comment on above: Performed By: #### L 100.0100, L500.4050, L501.2450 ####[facility] [address] [place], [address] Potassium [Moles/Vol] 3.6 mmol/L Normal 3.5-5.1 [facility] Comment on above: Result Comment: Slig ht Hemolysis, Result may be falsely increased. Performed By: #### L 100.0100, L500.4050, L501.2450 ####[facility] [address] [place], [address] Sodium [Moles/Vol] 136 mmol/L Normal 136-145 [facility] Comment on above: Performed By: #### L 100.0100, L500.4050, L501.2450 ####[facility] [address] [place], [address] T PROT 7.4 g/dL Normal 6.4-8.2 [facility] Comment on above: Performed By: #### L 100.0100, L500.4050, L501.2450 ####[facility] [address] [place], [address] Urea nitrogen [Mass/Vol] 10 mg/dL Normal 7-18 [facility] Comment on above: Performed By: #### L 100.0100, L500.4050, L501.2450 ####[facility] [address] [place], [address] ECG COMPLETEon 07-28-2024 ECG COMPLETE Ventricular Rate : 9 7 BPM QRS Duration : 74 ms Q-T Interval : 386 ms QTC Calculation(Bazett) : 490 ms Calculated R Middleton : 4 degrees Calculated T Middleton : 31 degrees ATRIAL FIBRILLATION NONSPECIFIC T WAVE ABNORMALITY ABNORMAL ECG NO PREVIOUS ECGS AVAILABLE POOR DATA QUALITY, INTERPRETATION MAY BE ADVERSELY AFFECTED Confirmed by KENDALL WHYTE MD ([id number]) on 04/04/2025 11:31:14 PM NAME : AMNA SEQUEIRA PID : [id number] : 1955 Gender : Female Race : ORD : [id number] Procedure Date : Jul 28 2024 22:47:04 Edit Date : Apr 04 2025 23:31:16 Diagnosis: ATRIAL FIBRILLATION NONSPECIFIC T WAVE ABNORMALITY ABNORMAL ECG NO PREVIOUS ECGS AVAILABLE POOR DATA QUALITY, INTERPRETATION MAY BE ADVERSELY AFFECTED Confirmed by KENDALL WHYTE MD ([id number]) on 04/04/2025 11:31:14 PM Test Reason : Chest Pain Location : 4 : [facility] Overread By : KENDALL WHYTE MD Edited By : KENDALL WHYTE MD Referred By : , Acquired by : YENNIFER ACOSTA [facility] ED PROV NOTEon 07-28-2024 ED PROV NOTE HNO ID: [id number] Author: BARBARA MEJIA MD Service: Emergency Medicine [...] Transfers: Patient arrives as a transfer from [facility] for bowel perforation. Complains of N/V, WBC 1020 and sytolic pressure in the 90s. Hx of pancreatitis. HPI Pt is a 69-year-old female with past medical history significant for PE/DVTs on Coumadin presenting to the emergency department from [facility] for concerns of necrotizing pancreatitis versus [...] and knees COPD (chronic obstructive pulmonary disease) ([facility]) DVT (deep venous thrombosis) ([facility]) 2005 IBS (irritable bowel syndrome) Insomnia RA (rheumatoid arthritis) ([facility]) PAST SURGICAL HISTORY Procedure Laterality Date CARPAL [...] emergency depart (more content not included)... Normal [facility] ED PROV NOTE HNO ID: [id number] Author: BARBARA MEJIA MD Service: Emergency Medicine Author Type: Physician Type: ED Provider Notes Filed: 07/28/2024 23:41 Note Text: Brief HPI: Amna Sequeira is a 69 year old female with a PMH as documented below who presents for evaluation. The patient presents from [facility]. The patient has had abdominal pain ongoing x 1 month. She has had vomiting. She has had increasing pain recently. She was seen at [facility] which she was found to have a possible gastric perforation, pseudocyst, necrotizing pancreatitis. Surgery was consulted at [facility] For further workup and management. The patient was accepted by Dr. Perez with a ER to ER transfer. The patient had a blood work sent at the [facility] in which she has found to [...] and knees COPD (chronic obstructive pulmonary disease) ([facility]) DVT (deep venous thrombosis) ([facility]) 2005 IBS (irritable bowel syndrome) Insomnia RA (rheumatoid arthritis) ([facility]) Constitutional: Nontoxic, well-appearing without any respiratory distress. [...] disposition details BARBARA MEJIA 07/28/24 2341 Normal [facility] EKGon 07-28-2024 Electrocardiogram Ventricular Rate : 9 6 BPM Atrial Rate : 96 BPM P-R Interval : 130 ms QRS Duration : 78 ms Q-T Interval : 408 ms QTC Calculation(Bazett) : 515 ms Calculated P Middleton : 29 degrees Calculated R Middleton : 15 degrees Calculated T Middleton : 62 degrees SINUS RHYTHM WITH PREMATURE ATRIAL COMPLEXES NONSPECIFIC T WAVE ABNORMALITY ABNORMAL ECG WHEN COMPARED WITH ECG OF 28-Jul-2024 22:47, SINUS RHYTHM HAS REPLACED ATRIAL FIBRILLATION NONSPECIFIC T WAVE ABNORMALITY NO LONGER EVIDENT IN INFERIOR LEADS Confirmed by KENDALL WHYTE MD ([id number]) on 04/04/2025 11:31:08 PM NAME : AMNA SEQUEIRA PID : [id number] : 1955 Gender : Female Race : [...] INFERIOR LEADS Confirmed by KENDALL WHYTE MD ([id number]) on 04/04/2025 11:31:08 PM Test Reason : Location : : [facility] Overread By : KENDALL WHYTE MD Edited By : KENDALL WHYTE MD Referred By : , Acquired by : YENNIFER ACOSTA Normal [facility] Emergency Department Summary on 07-28-2024 Emergency Department Summary [facility] Medical Records Department [address] [place] [address] Emergency Department Summary 07/28/24 MR#: [id number] Acct: [id number] Name: AMNA SEQUEIRA Rep #: [id number] : 1955 69 From: Toribio Salvador MD [...] Narrative: Af (more content not included)... Normal [facility] HISTORY PHYSICALon HISTORY PHYSICAL HNO ID: [id number] Author: BLAIR PEREZ MD Service: General Surgery [...] and pancreas. Consult to Dr. Ireland from [facility]. Findings reviewed with patient and her family. Blair Perez MD Delayed entry ----- HANDP: Emergency General Surgery Service SERVICE DATE: 07/28/2024 SERVICE TIME: 10:57 PM REASON FOR CONSULT: Gastric perforation versus walled off pancreatic necrosis REQUESTING PHYSICIAN: ED Subjective 69 year old female with PMHx of fibromyalgia, DVTs (on warfarin), hypothyroidism and RA who presents to the ED as a transfer from [place] with symptoms of vomiting x 2 months. [...] and knees COPD (chronic obstructive pulmonary disease) ([facility]) DVT (deep venous thrombosis) ([facility]) 2005 IBS (irritable bowel syndrome) Insomnia RA (rheumatoid arthritis) ([facility]) PAST SURGICAL HISTORY Procedure Laterality Date CARPAL [...] BUN, C (more content not included)... Normal [facility] Lactic Acidon 07-28-2024 Lactate [Moles/Vol] 1.4 mmol/L Normal 0.4-1.9 [facility] Comment on above: Order Comment: Y Performed By: #### L 503.6005 ####[facility] [address] [facility] [place], [place], [id number] Lipaseon 07-28-2024 Lipase [Catalytic activity/Vol] 154 U/L High 13-75 [facility] Comment on above: Result Comment: Britni centeno note: LIPASE revised reference range effective 23. New Lipase methodology. Expected to produce lower values than the previous assay method. NEW Reference Range: 13 - 75 U/L Performed By: #### L 100.0100, L500.4050, L501.2450 ####[facility] [address] [facility] [place], [place], [id number] Lipase Robbiel-Mariely 07-28-20 24 Lipase [Catalytic activity/Vol] 101 U/L High 16-61 [facility] Comment on above: Order Comment: Monika dye Type: BLOOD SPECIMEN Ordering Facility: [facility] Address: [address] [place] [address] Performed By: #### 3 040-3 #### [facility] CLIA [id number] [address] [place] [address] PT panel Coag (PPP)on 2023 INR Coag (PPP) [Relative time] 1.2 {INR} Normal 0.9-1.3 [facility] Comment on above: Order Comment: Monika dye Type: BLOOD SPECIMEN Ordering Facility: [facility] Address: [address] [place] [address] Result Comment: Jayy min K Antagonist (VKA) Therapeutic Range: INR 2 to 3 (Target INR of 2.5) Note: For patients treated with VKA drugs, such as warfarin, the [place] [employer] 2012 Guideline recommends [...] Chest 2012, 141:7S-47S Miri RA, et al. [facility] 2017, 70: 252-289 Performed By: #### 1 4979-9 #### [facility] CLIA [id number] [address] [place] [address] STATES OF [facility] PT Coag (PPP) [Time] 13.0 s Normal 9.7-13.0 [facility] Comment on above: Order Comment: Monika dye Type: BLOOD SPECIMEN Ordering Facility: [facility] Address: [address] [place] [address] Performed By: #### 1 4979-9 #### [facility] CLIA [id number] [address] [place] TYPE + SCREENon 07-28-2024 ABO A Normal [facility] Comment on above: Order Comment: Speci men Type: BLOOD SPECIMEN Ordering Facility: [facility] Address: [facility] [place] [address] Performed By: #### T SCR #### [facility] CLIA [id number] [address] [place] Rh Nom (Bld) Negative Normal [facility] Comment on above: Order Comment: Speci men Type: BLOOD SPECIMEN Ordering Facility: [facility] Address: [address] [place] [address] Performed By: #### T SCR #### [facility] CLIA [id number] [address] STATES OF [facility] TYPE AND SCREEN EXPIRATION 07/31/2024 23:59 Normal [facility] Comment on above: Order Comment: Speci men Type: BLOOD SPECIMEN Ordering Facility: [facility] Address: [address] [place] [address] Performed By: #### T SCR #### [facility] CLIA [id number] [address] [place] Urinalysis, Completeon 07-28 BACTERIA 4+ /hpf Normal None Seen [facility] Comment on above: Order Comment: CLEAN CATCH Performed By: #### L 400.0001 ####[facility] [address] [place], [place], [id number] EPI,SQUAMOUS 5-10 SEEN Normal 5-10 [facility] Comment on above: Order Comment: CLEAN CATCH Performed By: #### L 400.0001 ####[facility] [address] [place], [address] Mucus Ql (Urine sed) 1+ /hpf Normal [facility] Comment on above: Order Comment: CLEAN CATCH Performed By: #### L 400.0001 ####[facility] [address] [place], [address] WBC 50-100 SEEN Normal 0-5 [facility] Comment on above: Order Comment: CLEAN CATCH Performed By: #### L 400.0001 ####[facility] [address] [place], [address] BILIRUBIN URINE Negative Normal Negative [facility] Comment on above: Order Comment: CLEAN CATCH Performed By: #### L 400.0001 ####[facility] [address] [place], [address] Clarity (U) Sl. Cloudy Normal Clear [facility] Comment on above: Order Comment: CLEAN CATCH Performed By: #### L 400.0001 ####[facility] [address] [place] [id number] Color (U) Yellow Normal Yellow [facility] Comment on above: Order Comment: CLEAN CATCH Performed By: #### L 400.0001 ####[facility] [address] [place], [address] GLUCOSE, UR Normal Normal Normal [facility] Comment on above: Order Comment: CLEAN CATCH Performed By: #### L 400.0001 ####[facility] [address] [place], [address] KETONE UR 5 mg/dl Abnormal Negative [facility] Comment on above: Order Comment: CLEAN CATCH Performed By: #### L 400.0001 ####[facility] [address] [place], [address] LEUK ESTERASE 100 /ul Abnormal Negative [facility] Comment on above: Order Comment: CLEAN CATCH Performed By: #### L 400.0001 ####[facility] [address] [place], [address] Nitrite Ql (U) Positive Abnormal Negative [facility] Comment on above: Order Comment: CLEAN CATCH Performed By: #### L 400.0001 ####[facility] [address] [place], [address] OCCULT BLOOD-UR 10 /ul Abnormal Negative [facility] Comment on above: Order Comment: CLEAN CATCH Performed By: #### L 400.0001 ####[facility] [address] [place], [address] pH UR 6.5 Normal 5.0 - 8.0 [facility] Comment on above: Order Comment: CLEAN CATCH Performed By: #### L 400.0001 ####[facility] [address] [place], [address] PROT DIPSTX 30 mg/dl Abnormal Negative [facility] Comment on above: Order Comment: CLEAN CATCH Performed By: #### L 400.0001 ####[facility] [address] [place], [address] SP.GR. DIPSTX 1.010 Normal 1.002-1.[address] [facility] Comment on above: Order Comment: CLEAN CATCH Performed By: #### L 400.0001 ####[facility] [address] [place], [address] UROBILI 1 mg/dl Abnormal Normal [facility] Comment on above: Order Comment: CLEAN CATCH Performed By: #### L 400.0001 ####[facility] [address] [place], [address] RBC 0 SEEN Normal 0-5 [facility] Comment on above: Order Comment: CLEAN CATCH Performed By: #### L 400.0001 ####[facility] [address] [place], [address] CT ABDOMEN/PELVIS Won 2023 CT ABDOMEN/PELVIS [address] [address] Patient: AMNA SEQUEIRA Phone#: : 1955 Age: 69 Gender: F Pt. Type: Out Account: [id number] Location: 052 Ordering: GALINDO GUTIERREZ Exam Date: 07/09/2024/13:22 Family Phys: Charge Code: 500508 Physician: Carbon Order #: [id number] Dose#: PROCEDURE: CT ABDOMEN/PELVIS WITH CONTRAST COMPARISON: [facility], CT, CHEST PE W CON, [...] 69 Gender: F Pt. Type: Out Account: [id number] Location: 052 Ordering: GALINDO GUTIERREZ Exam Date: 07/09/2024/13:22 Family Phys: Charge Code: 721010 Physician: Carbon Order #: [id number] Dose#: BONES: Severe degenerative changes of the [...] Marc MD on 07/09/2024 at 15:17 Normal [facility] AMYLASEon 07-03-2024 Amylase [Catalytic activity/Vol] 63 U/L Normal 21-101 [facility] Comment on above: Performed By: #### 1 0231, 8499 #### [facility] [place] [address] Director Of Employee Development: Braulio Roach MD CBC (INCLUDES DIFF/PLT)on Basophils (Bld) [#/Vol] 0.097 10*3/uL Normal 0-200 [facility] Comment on above: Performed By: #### 1 0231, 2591 #### [facility] [address], [address] [place] [address] Director Of Employee Development: Braulio Roach MD Basophils/100 WBC (Bld) 0.6 % Normal [facility] Comment on above: Performed By: #### 1 0231, 1304 #### [facility] [place] [address] Director Of Employee Development: Braulio Roach MD Eosinophils (Bld) [#/Vol] 0.032 10*3/uL Normal 15-500 [facility] Comment on above: Performed By: #### 1 0231, 6399 #### [facility] of [address], [address] [place] [address] Director Of Employee Development: Braulio Roach MD Eosinophils/100 WBC (Bld) 0.2 % Normal [facility] Comment on above: Performed By: #### 1 0231, 6399 #### [facility] of [address], [address] [place] [address] Director Of Employee Development: Braulio Roach MD Erythrocyte distribution width (RBC) [Ratio] 20.6 % High 11.0-15.0 [facility] Comment on above: Performed By: #### 1 0231, 6399 #### [facility] of [address], [address] [place] [address] Director Of Employee Development: Braulio Roach MD Hematocrit (Bld) [Volume fraction] 39.4 % Normal 35.0-45.0 [facility] Comment on above: Performed By: #### 1 0231, 6399 #### [facility] of [address], [address] [place] [address] Director Of Employee Development: Braulio Roach MD Hemoglobin (Bld) [Mass/Vol] 11.4 g/dL Low 11.7-15.5 [facility] Comment on above: Performed By: #### 1 0231, 6399 #### [facility] of [address], [address] [place] [address] Director Of Employee Development: Braulio Roach MD Lymphocytes (Bld) [#/Vol] 0.713 10*3/uL Low 850-3900 [facility] Comment on above: Performed By: #### 1 0231, 6399 #### [facility] of [address], [address] [place] [address] Director Of Employee Development: Braulio Roach MD Lymphocytes/100 WBC (Bld) 4.4 % Normal [facility] Comment on above: Performed By: #### 1 0231, 6399 #### [facility] of [address], [address] [place] [address] Director Of Employee Development: Braulio Roach MD MCH (RBC) [Entitic mass] 22.6 pg Low 27.0-33.0 [facility] Comment on above: Performed By: #### 1 0231, 6399 #### [facility] of [place] [address] Director Of Employee Development: Braulio Roach MD MCHC (RBC) [Mass/Vol] 28.9 g/dL Low 32.0-36.[address] [facility] Comment on above: Performed By: #### 1 023, 6399 #### [facility] of [place] [address] Director Of Employee Development: Braulio Roach MD MCV (RBC) [Entitic vol] 78.2 fL Low 80.0-100.0 [facility] Comment on above: Performed By: #### 1 230, 6399 #### [facility] of [place] [address] Director Of Employee Development: Braulio Roach MD Monocytes (Bld) [#/Vol] 0.454 10*3/uL Normal 200-950 [facility] Comment on above: Performed By: #### 1 0231, 6399 #### [facility] of [place] [address] Director Of Employee Development: Braulio Roach MD Monocytes/100 WBC (Bld) 2.8 % Normal [facility] Comment on above: Performed By: #### 1 023, 6399 #### [facility] of [place] [address] Director Of Employee Development: Braulio Roach MD Neutrophils (Bld) [#/Vol] 14.904 10*3/uL High 5435-0095 [facility] Comment on above: Performed By: #### 1 0231, 6399 #### [facility] of [place] [address] Director Of Employee Development: Braulio Roach MD Neutrophils/100 WBC (Bld) 92 % Normal [facility] Comment on above: Performed By: #### 1 0231, 6399 #### [facility] of [address], [address] [place] [address] Director Of Employee Development: Braulio Roach MD Platelet mean volume (Bld) [Entitic vol] 9.2 fL Normal 7.5-12.5 [facility] Comment on above: Performed By: #### 1 0231, 6399 #### [facility] of [address], [address] [place] [address] Director Of Employee Development: Braulio Roach MD Platelets (Bld) [#/Vol] 754 10*3/uL High 140-400 [facility] Comment on above: Performed By: #### 1 0231, 6399 #### [facility] of [address], [address] [place] [address] Director Of Employee Development: Braulio Roach MD RBC (Bld) [#/Vol] 5.04 10*6/uL Normal 3.80-5.10 [facility] Comment on above: Performed By: #### 1 0231, 6399 #### [facility] of [address], [address] [place] [address] Director Of Employee Development: Braulio Roach MD WBC (Bld) [#/Vol] 16.2 10*3/uL High 3.8-10.8 [facility] Comment on above: Performed By: #### 1 0231, 6399 #### [facility] of [place] [address] Director Of Employee Development: Braulio Roach MD [facility] 07-03-2024 Albumin [Mass/Vol] 3.2 g/dL Low 3.6-5.1 [facility] Comment on above: Performed By: #### 1 0231, 6399 #### [facility] of [place] [address] Director Of Employee Development: Braulio Roach MD Albumin/Globulin [Mass ratio] 0.8 {ratio} Low 1.0-2.5 [facility] Comment on above: Performed By: #### 1 0231, 6399 #### [facility] of [address], [address] [place] [address] Director Of Employee Development: Braulio Roach MD ALP [Catalytic activity/Vol] 88 U/L Normal 37-153 [facility] Comment on above: Performed By: #### 1 0231, 6399 #### [facility] of [address], [address] [place] [address] Director Of Employee Development: Braulio Roach MD ALT [Catalytic activity/Vol] 10 U/L Normal 6-29 [facility] Comment on above: Performed By: #### 1 0231, 6399 #### [facility] of [address], [address] [place] [address] Director Of Employee Development: Braulio Roach MD AST [Catalytic activity/Vol] 13 U/L Normal 10-35 [facility] Comment on above: Performed By: #### 1 0231, 6399 #### [facility] of [address], [address] [place] [address] Director Of Employee Development: Braulio Roach MD Bilirubin [Mass/Vol] 0.2 mg/dL Normal 0.2-1.2 [facility] Comment on above: Performed By: #### 1 0231, 6399 #### [facility] of [place] [address] Director Of Employee Development: Braulio Roach MD Calcium [Mass/Vol] 9.0 mg/dL Normal 8.6-10.4 [facility] Diagnostics Comment on above: Performed By: #### 1 0231, 6399 #### [facility] [place] [address] Director Of Employee Development: Braulio Roach MD Chloride [Moles/Vol] 103 mmol/L Normal 98-110 [facility] Comment on above: Performed By: #### 1 0231, 6399 #### [facility] [place] [address] Director Of Employee Development: Braulio Roach MD CO2 [Moles/Vol] 15 mmol/L Low 20-32 [facility] Comment on above: Result Comment: Angelica ection tube is incompletely filled. CO2 result may be decreased. Performed By: #### 1 0231, 6399 #### [facility] [address], [address] [place] [address] Director Of Employee Development: Braulio Roach MD Creatinine [Mass/Vol] 1.08 mg/dL High 0.50-1.[address] [facility] Comment on above: Performed By: #### 1 0231, 6399 #### [facility] [address], [address] [place] [address] Director Of Employee Development: rBaulio Roach MD GFR/1.73 sq M.predicted among non-blacks MDRD (S/P/Bld) [Vol rate/Area] 56 mL/min/{1.73_m2} Low > OR = 60 [facility] Comment on above: Performed By: #### 1 0231, 6399 #### [facility] [address], [address] [place] [address] Director Of Employee Development: Braulio Roach MD Globulin (S) [Mass/Vol] 4.2 g/dL High 1.9-3.7 [facility] Comment on above: Performed By: #### 1 0231, 6399 #### [facility] [place] [address] Director Of Employee Development: Braulio Roach MD Glucose [Mass/Vol] 108 mg/dL High 65-99 [facility] Comment on above: Result Comment: Fasting reference interval For someone without known diabetes, a glucose value between 100 and 125 mg/dL is consistent with prediabetes and should be confirmed with a follow-up test. Performed By: #### 1 0231, 6399 #### [facility] [address], [address] [place] [address] Director Of Employee Development: Braulio Roahc MD Potassium [Moles/Vol] 3.6 mmol/L Normal 3.5-5.[address] [facility] Comment on above: Performed By: #### 1 0231, 6399 #### [facility] [place] [address] Director Of Employee Development: Braulio Roach MD Protein [Mass/Vol] 7.4 g/dL Normal 6.1-8.1 [facility] Comment on above: Performed By: #### 1 0231, 6399 #### [facility] of [address], [address] [place] [address] Director Of Employee Development: Braulio Roach MD Sodium [Moles/Vol] 135 mmol/L Normal 135-146 [facility] Comment on above: Performed By: #### 1 0231, 6399 #### [facility] of [address], [address] [place] [address] Director Of Employee Development: Braulio Roach MD Urea nitrogen [Mass/Vol] 15 mg/dL Normal 7-25 [facility] Comment on above: Performed By: #### 1 0231, 6399 #### [facility] [address], [address] [place] [address] Director Of Employee Development: Braulio Roach MD Urea nitrogen/Creatinine [Mass ratio] 14 mg/mg Normal 6-22 [facility] Comment on above: Performed By: #### 1 0231, 6399 #### [facility] [place] [address] Director Of Employee Development: Braulio Roach MD ABDOMEN 2 VIEWSon 07-02-2024 ABDOMEN 2 VIEWS [place] [address] Patient: AMNA SEQUEIRA Phone#: : 1955 Age: 69 Gender: F Pt. Type: Out Account: [id number] Location: [facility] Ordering: GALINDO GUTIERREZ Exam Date: 07/02/2024/15:08 Family Phys: Charge Code: 091073 Physician: Carbon Order #: [id number] Dose#: CORRECTION Corrected incomplete sentence. Corrected on: [...] Marc MD on 07/08/2024 at 10:05 Normal [facility] PT/INR DAILY PATIENT ON COUM ADINon 05-26-2024 INR Coag (PPP) [Relative time] 5.1 {INR} Critically high 0.8 - 1.2 [facility] Comment on above: Result Comment: { [...] MECHANICAL HEART [facility]VES Performed By: #### 2 00823 #### [facility],[address] [place] [address] PT-COUMADIN 54.7 sec High 9.3 - 14.1 [facility] Comment on above: Performed By: #### 2 70654 #### [facility],[address] [place], [place] [address] CULTURE BLOODon 09-29-2023 Bacteria identified Cx Nom (Bld) NO GROWTH OBSERVED AFTER 5 DAYS Normal [facility] Comment on above: Performed By: #### 2 524-7 #### [facility] [address] [place] [address] Director Of Employee Development - [employer] [id number] URINE OXYCODONE CONFIRMATION RANDOMon 09-28-2023 Oxycodone Negative Normal Nzxlxp=246 [facility] Comment on above: Performed By: #### 2 4336-0 #### [facility] [address] [place] [address] Director Of Employee Development - [employer] [id number] Performed for [facility] [address] [place] [address] Oxycodone/Oxymorphone Confirm Positive Abnormal Hegvxq=251 [facility] Comment on above: Result Comment: Test includes Oxycodone and Oxymorphone Performed By: #### 2 4336-0 #### [facility] [address] [place] [address] Director Of Employee Development - [employer] [id number] Performed for [facility] [address] [place] [address] Oxymorphone Positive Abnormal [facility] Comment on above: Performed By: #### 2 4336-0 #### [facility] [address] [place] [address] Director Of Employee Development - [employer] Maldon[employer] MINNIEIA [id number] Performed for [facility] [address] [place] [address] Oxymorphone Confirm 171 ng/mL Normal Fxqwcy=305 [facility] Comment on above: Result Comment: Oxym orphone detected; this finding is consistent with use of medications that include Numorphan, Opana, or drugs containing Oxycodone, or generic formulations. Drugs listed are farm loan representative of common sources of the compound detected and are not intended to include all possible sources. Performed By: #### 2 4336-0 #### [facility] [address] [place] [address] Director Of Employee Development - [facility] [id number] Performed for [facility] [address] [place] [address] Please Note: Comment Normal [facility] Comment on above: Result Comment: Drug -test results should be interpreted in the context of clinical information. Patient metabolic variables, specific drug chemistry, and specimen characteristics can affect test outcome. Technical consultation is available if a test result is inconsistent with an expected outcome. (email-[email or web address] or call toll-free [phone]) . Drug brands, if listed herein, are trademarks of their respective owners. Performed By: #### 2 4336-0 #### [facility] [address] [place] [address] Director Of Employee Development - [employer] [id number] Performed for [facility] [address] [place] [address] Basic metabolic 2000 panelon 09-25-2023 Anion gap [Moles/Vol] 5.0 mmol/L Normal <=15.0 [facility] Comment on above: Performed By: #### 1 9123-9, LIPASE, 94118-0 #### [facility] [address] [place] [address] Director Of Employee Development - [employer] [id number] Calcium [Mass/Vol] 7.2 mg/dL Low 8.5-10.1 [facility] Comment on above: Performed By: #### 1 9123-9, LIPASE, 09152-0 #### [facility] [address] [place] [address] Director Of Employee Development - [employer] [id number] Chloride [Moles/Vol] 110 mmol/L High 98-107 [facility] Comment on above: Performed By: #### 1 9123-9, LIPASE, 76534-0 #### [facility] [address] [place] [address] Director Of Employee Development - [employer] [id number] CO2 [Moles/Vol] 24 mmol/L Normal 21-32 [facility] Comment on above: Performed By: #### 1 9123-9, LIPASE, 29759-5 #### [facility] [address] [place] [address] Director Of Employee Development - [employer] [id number] Creatinine [Mass/Vol] 0.64 mg/dL Normal 0.51-0.95 [facility] Comment on above: Performed By: #### 1 9123-9, LIPASE, 17089-9 #### [facility] [address] [place] [address] Director Of Employee Development - [facility] [id number] GFR/1.73 sq M.predicted MDRD (S/P/Bld) [Vol rate/Area] mL/min/{1.73_m2} Normal >=59 [facility] Comment on above: Performed By: #### 1 23-9, LIPASE, 51846-3 #### [facility] [address] [place] [address] Director Of Employee Development - [facility] SUSANNE [id number] Glucose [Mass/Vol] 81 mg/dL Normal 74-106 [facility] Comment on above: Performed By: #### 1 23-9, LIPASE, 03345-9 #### [facility] [address] [place] [address] Director Of Employee Development - [facility] [id number] HGFR GLOMERULAR FILTRATIO N RATE INTERPRETATION~The eGFR [...] months, with or without kidney damage.~ Normal [facility] Comment on above: Performed By: #### 1 23-9, LIPASE, 75278-2 #### [facility] [address] [place] [address] Director Of Employee Development - [facility] SUSANNE [id number] Potassium [Moles/Vol] 3.4 mmol/L Low 3.5-5.1 [facility] Comment on above: Performed By: #### 1 23-9, LIPASE, 26023-3 #### [facility] [address] [place] [address] Director Of Employee Development - [employer] [id number] Sodium [Moles/Vol] 139 mmol/L Normal 136-145 [facility] Comment on above: Performed By: #### 1 9123-9, LIPASE, 46776-8 #### [facility] [address] [place] [address] Director Of Employee Development - [employer] [id number] Urea nitrogen [Mass/Vol] 5 mg/dL Low - [facility] Comment on above: Performed By: #### 1 9123-9, LIPASE, 88536-5 #### [facility] [address] [place] [address] Director Of Employee Development - [employer] [id number] CBC W Auto Differential pane l (Bld)on 09-25-2023 Basophils (Bld) [#/Vol] 0.06 10*3/uL Normal <=0.70 [facility] Comment on above: Performed By: #### 2 524-7 #### [place] [address] [place] [address] Director Of Employee Development - [employer] [id number] Basophils/100 WBC (Bld) 0.7 % Normal <=2.0 [facility] Comment on above: Performed By: #### 2 524-7 #### [facility] [address] [place] [address] Director Of Employee Development - [employer] [id number] Eosinophils (Bld) [#/Vol] 0.16 10*3/uL Normal <=0.70 [facility] Comment on above: Performed By: #### 2 524-7 #### [facility] [address] [place] [address] Director Of Employee Development - [employer] [id number] Eosinophils/100 WBC (Bld) 1.8 % Normal <=10.0 [facility] Comment on above: Performed By: #### 2 524-7 #### [facility] [address] [place] [address] Director Of Employee Development - [employer] [id number] Erythrocyte distribution width (RBC) [Entitic vol] 51.8 fL High 36.4-46.3 [facility] Comment on above: Performed By: #### 2 524-7 #### [place] [address] Director Of Employee Development - [employer] [id number] Hematocrit (Bld) [Volume fraction] 32.7 % Low 37.0-47.0 [facility] Comment on above: Performed By: #### 2 524-7 #### [place] [address] Director Of Employee Development - [employer] [id number] Hemoglobin (Bld) [Mass/Vol] 9.9 g/dL Low 12.0-16.0 [facility] Comment on above: Performed By: #### 2 524-7 #### [place] [address] Director Of Employee Development - [employer] CLIA [id number] Immature granulocytes (Bld) [#/Vol] 0.05 10*3/uL Normal <=0.10 [facility] Comment on above: Performed By: #### 2 524-7 #### [place] [address] Director Of Employee Development - [employer] CLIA [id number] Immature granulocytes/100 WBC (Bld) 0.60 % Normal <=1.50 [facility] Comment on above: Performed By: #### 2 524-7 #### [place] [address] Director Of Employee Development - [employer] CLIA [id number] Lymphocytes (Bld) [#/Vol] 1.78 10*3/uL Normal 1.20-3.40 [facility] Comment on above: Performed By: #### 2 524-7 #### [place] [address] Director Of Employee Development - [employer] CLIA [id number] Lymphocytes/100 WBC (Bld) 19.7 % Low 20.0-40.0 [facility] Comment on above: Performed By: #### 2 524-7 #### [place] [address] [facility] [place] [address] Director Of Employee Development - [employer] [id number] MCH (RBC) [Entitic mass] 22.1 pg Low 27.0-31.0 [facility] Comment on above: Performed By: #### 2 524-7 #### [address] [place] [address] Director Of Employee Development - [employer] [id number] MCHC (RBC) [Mass/Vol] 30.3 g/dL Low 32.0-36.0 [facility] Comment on above: Performed By: #### 2 524-7 #### [place] [address] Director Of Employee Development - [employer] [id number] MCV (RBC) [Entitic vol] 73.0 fL Low 80.0-100.0 [facility] Comment on above: Performed By: #### 2 524-7 #### [place] [address] Director Of Employee Development - [employer] [id number] Monocytes (Bld) [#/Vol] 0.66 10*3/uL High 0.10-0.60 [facility] Comment on above: Performed By: #### 2 524-7 #### [place] [address] Director Of Employee Development - [employer] [id number] Monocytes/100 WBC (Bld) 7.3 % Normal <=8.0 [facility] Comment on above: Performed By: #### 2 524-7 #### [place] [address] Director Of Employee Development - [employer] [id number] Neutrophils (Bld) [#/Vol] 6.31 10*3/uL Normal 1.40-6.50 [facility] Comment on above: Performed By: #### 2 524-7 #### [facility] [address] [place] [address] Director Of Employee Development - [employer] [id number] Neutrophils/100 WBC (Bld) 69.9 % Normal 50.0-70.0 [facility] Comment on above: Performed By: #### 2 524-7 #### [facility] [address] [place] [address] Director Of Employee Development - [employer] [id number] Nucleated RBC (Bld) [#/Vol] 0.00 10*3/uL Normal <=0.10 [facility] Comment on above: Performed By: #### 2 524-7 #### [address] [place] [address] Director Of Employee Development - [employer] [id number] Platelet mean volume (Bld) [Entitic vol] 8.5 fL Low 9.0-13.0 [facility] Comment on above: Performed By: #### 2 524-7 #### [facility] [address] [place] [address] Director Of Employee Development - [employer] [id number] Platelets (Bld) [#/Vol] 395 10*3/uL Normal 130-400 [facility] Comment on above: Performed By: #### 2 524-7 #### [place] [address] [place] [address] Director Of Employee Development - [employer] [id number] RBC (Bld) [#/Vol] 4.48 10*6/uL Normal 4.00-6.30 [facility] Comment on above: Performed By: #### 2 524-7 #### [facility] [address] [place] [address] Director Of Employee Development - [employer] [id number] WBC (Bld) [#/Vol] 9.02 10*3/uL Normal 4.80-10.80 [facility] Comment on above: Performed By: #### 2 524-7 #### [address] [place] [address] Director Of Employee Development - [employer] [id number] Hepatic function 2000 panelo n 09-25-2023 Albumin [Mass/Vol] 2.4 g/dL Low 3.4-5.0 [facility] Comment on above: Performed By: #### 1 9123-9, LIPASE, 13573-2 #### [facility] [address] [place] [address] Director Of Employee Development - [employer] [id number] Albumin/Globulin [Mass ratio] 0.6 {ratio} Low 1.0-2.2 [facility] Comment on above: Performed By: #### 1 9123-9, LIPASE, 31633-2 #### [facility] [address] [place] [address] Director Of Employee Development - [employer] [id number] ALP [Catalytic activity/Vol] 82 U/L Normal 50-136 [facility] Comment on above: Performed By: #### 1 9123-9, LIPASE, 24296-1 #### [facility] [address] [place] [address] Director Of Employee Development - [employer] CLIA [id number] ALT [Catalytic activity/Vol] 24 U/L Normal 14-59 [facility] Comment on above: Performed By: #### 1 9123-9, LIPASE, 24720-6 #### [facility] [address] [place] [address] Director Of Employee Development - [employer] CLIA [id number] AST [Catalytic activity/Vol] 25 U/L Normal 15-37 [facility] Comment on above: Performed By: #### 1 9123-9, LIPASE, 68997-8 #### [facility] [address] [place] [address] Director Of Employee Development - [employer] [id number] Bilirubin [Mass/Vol] 0.5 mg/dL Normal 0.2-1.0 [facility] Comment on above: Performed By: #### 1 9123-9, LIPASE, 84697-0 #### [facility] [address] [place] [address] Director Of Employee Development - [employer] [id number] Bilirubin.conjugated [Mass/Vol] 0.2 mg/dL Normal <=0.2 [facility] Comment on above: Performed By: #### 1 9123-9, LIPASE, 11148-9 #### [facility] [address] [place] [address] Director Of Employee Development - [employer] [id number] Globulin (S) [Mass/Vol] 3.9 g/dL High 2.4-3.8 [facility] Comment on above: Performed By: #### 1 23-9, LIPASE, 02027-4 #### [place] [address] [place] [address] Director Of Employee Development - [employer] [id number] Protein [Mass/Vol] 6.3 g/dL Low 6.4-8.2 [facility] Comment on above: Performed By: #### 1 9123-9, LIPASE, 72304-3 #### [facility] [address] [place] [address] Director Of Employee Development - [employer] [id number] MAGNESIUMon 09-25-2023 Magnesium [Mass/Vol] 2.0 mg/dL Normal 1.6-2.6 [facility] Comment on above: Performed By: #### 1 9123-9, LIPASE, 60918-6 #### [place] [address] [place] [address] Director Of Employee Development - [employer] [id number] PHOSPHORUSon 09-25-2023 Phosphate [Mass/Vol] 2.3 mg/dL Low 2.5-4.9 [facility] Comment on above: Performed By: #### 1 9123-9, LIPASE, 67136-3 #### [facility] [address] [place] [address] Director Of Employee Development - [employer] [id number] PT Coag (PPP) [Time]on 09-25 HPTINR INR REFERENCE RANGE INTERPRETATION Patients on Coumadin 2.0 - 3.0 Patients with mechanical heart valves 2.5 - 3.5 Normal [facility] Comment on above: Performed By: #### 2 524-7 #### [place] [address] [place] [address] Director Of Employee Development - [employer] [id number] INR Coag (PPP) [Relative time] 3.4 {INR} High 0.8-1.1 [facility] Comment on above: Performed By: #### 2 524-7 #### [address] [place] [address] Director Of Employee Development - [employer] [id number] PT with INRon 09-25-2023 PT Coag (PPP) [Time] 32.5 s High 9.3-11.5 [facility] Comment on above: Performed By: #### 2 524-7 #### [address] [place] [address] Director Of Employee Development - [employer] [id number] 25-hydroxyvitamin D [Mass/Vo l]on 09-24-2023 25-hydroxyvitamin D3 [Mass/Vol] 32.1 ng/mL Normal 30.0-100.0 [facility] Comment on above: Performed By: #### 1 9123-9, LIPASE, 47157-3 #### [address] [place] [address] Director Of Employee Development - [employer] [id number] HVITD VITAMIN D INTERPRETA TION VITAMIN D STATUS RANGE DEFICIENCY <20 ng/mL INSUFFICIENCY 20-30 ng/mL SUFFICIENCY 30-100 ng/mL TOXICITY >100 ng/mL Normal [facility] Comment on above: Performed By: #### 1 9123-9, LIPASE, 56557-3 #### [address] [place] [address] Director Of Employee Development - [employer] [id number] ABDOMEN KUB PORTABLEon 09-24 ABDOMEN KUB PORTABLE [...] pattern without evidence of bowel obstruction. Normal [facility] Basic metabolic 2000 panelon 09-24-2023 Anion gap [Moles/Vol] 4.0 mmol/L Normal <=15.0 [facility] Comment on above: Performed By: #### 2 4336-0 #### [facility] [address] [place] [address] Director Of Employee Development - [employer] [id number] Performed for [facility] [address] [place] [address] Calcium [Mass/Vol] 7.9 mg/dL Low 8.5-10.1 [facility] Comment on above: Performed By: #### 2 4336-0 #### [facility] [address] [place] [address] Director Of Employee Development - [employer] [id number] Performed for [facility] [address] [place] [address] Chloride [Moles/Vol] 111 mmol/L High 98-107 [facility] Comment on above: Performed By: #### 2 4336-0 #### [facility] [address] [place] [address] Director Of Employee Development - [employer] [id number] Performed for [facility] [address] [place] [address] CO2 [Moles/Vol] 27 mmol/L Normal 21-32 [facility] Comment on above: Performed By: #### 2 4336-0 #### [facility] [address] [place] [address] Director Of Employee Development - [employer] [id number] Performed for [facility] [address] [place], [place] [address] Creatinine [Mass/Vol] 0.70 mg/dL Normal 0.51-0.95 [facility] Comment on above: Performed By: #### 2 4336-0 #### [facility] [address] [place] [address] Director Of Employee Development - [employer] [id number] Performed for [facility] [address] [place], [place] [address] GFR/1.73 sq M.predicted MDRD (S/P/Bld) [Vol rate/Area] mL/min/{1.73_m2} Normal >=59 [facility] Comment on above: Performed By: #### 2 4336-0 #### [facility] [address] [place] [address] Director Of Employee Development - [employer] [id number] Performed for [facility] [address] [place], [place] [address] Glucose [Mass/Vol] 101 mg/dL Normal 74-106 [facility] Comment on above: Performed By: #### 2 4336-0 #### [facility] [address] [place] [address] Director Of Employee Development - [employer] [id number] Performed for [facility] [address] [place], [place] [address] HGFR GLOMERULAR FILTRATIO N RATE INTERPRETATION~The eGFR [...] months, with or without kidney damage.~ Normal [facility] Comment on above: Performed By: #### 2 4336-0 #### [facility] [address] [place], [place] [address] Director Of Employee Development - [employer] [id number] Performed for [facility] [address] [place], [place] [address] Potassium [Moles/Vol] 3.3 mmol/L Low 3.5-5.1 [facility] Comment on above: Performed By: #### 2 4336-0 #### [facility] [address] [place] [address] Director Of Employee Development - [employer] [id number] Performed for [facility] [address] [place], [place] [address] Sodium [Moles/Vol] 142 mmol/L Normal 136-145 [facility] Comment on above: Performed By: #### 2 4336-0 #### [facility] [address] [place] [address] Director Of Employee Development - [employer] [id number] Performed for [facility] [address] [place], [place] [address] Urea nitrogen [Mass/Vol] 9 mg/dL Normal 7-17 [facility] Comment on above: Performed By: #### 2 4336-0 #### [facility] [address] [place], [place] [address] Director Of Employee Development - [employer] [id number] Performed for [facility] [address] [place], [place] [address] CBC W Auto Differential pane l (Bld)on 09-24-2023 Basophils (Bld) [#/Vol] 0.08 10*3/uL Normal <=0.70 [facility] Comment on above: Performed By: #### 2 4336-0 #### [facility] [address] [place], [place] [address] Director Of Employee Development - [employer] [id number] Performed for [facility] [address] [place], [place] [address] Basophils/100 WBC (Bld) 0.8 % Normal <=2.0 [facility] Comment on above: Performed By: #### 2 4336-0 #### [facility] [address] [place], [place] [address] Director Of Employee Development - [employer] [id number] Performed for [facility] [address] [place], [place] [address] Eosinophils (Bld) [#/Vol] 0.11 10*3/uL Normal <=0.70 [facility] Comment on above: Performed By: #### 2 4336-0 #### [facility] [address] [place] [address] Director Of Employee Development - [employer] [id number] Performed for [facility] [address] [place], [place] [address] Eosinophils/100 WBC (Bld) 1.1 % Normal <=10.0 [facility] Comment on above: Performed By: #### 2 4336-0 #### [facility] [address] [place] [address] Director Of Employee Development - [employer] [id number] Performed for [facility] [address] [place], [place] [address] Erythrocyte distribution width (RBC) [Entitic vol] 51.8 fL High 36.4-46.3 [facility] Comment on above: Performed By: #### 2 4336-0 #### [facility] [address] [place] [address] Director Of Employee Development - [employer] [id number] Performed for [facility] [address] [place], [place] [address] Hematocrit (Bld) [Volume fraction] 36.4 % Low 37.0-47.0 [facility] Comment on above: Performed By: #### 2 4336-0 #### [facility] [address] [place], [place] [address] Director Of Employee Development - [employer] [id number] Performed for [facility] [address] [place], [place] [address] Hemoglobin (Bld) [Mass/Vol] 11.2 g/dL Low 12.0-16.0 [facility] Comment on above: Performed By: #### 2 4336-0 #### [facility] [address] [place] [address] Director Of Employee Development - [employer] [id number] Performed for [facility] [address] [place], [place] [address] Immature granulocytes (Bld) [#/Vol] 0.06 10*3/uL Normal <=0.10 [facility] Comment on above: Performed By: #### 2 4336-0 #### [facility] [address] [place] [address] Director Of Employee Development - [employer] [id number] Performed for [place] [address] [place] [place] [address] Immature granulocytes/100 WBC (Bld) 0.60 % Normal <=1.50 [facility] Comment on above: Performed By: #### 2 4336-0 #### [place] [address] [place] [address] Director Of Employee Development - [employer] [id number] Performed for [place] [address] [place] [address] Lymphocytes (Bld) [#/Vol] 1.52 10*3/uL Normal 1.20-3.40 [facility] Comment on above: Performed By: #### 2 4336-0 #### [place] [address] [place] [address] Director Of Employee Development - [place] HARTMANIA [id number] Performed for [place] [address] [place], [place] [address] Lymphocytes/100 WBC (Bld) 15.3 % Low 20.0-40.0 [facility] Comment on above: Performed By: #### 2 4336-0 #### [facility] [address] [place] [address] Director Of Employee Development - [employer] [id number] Performed for [place] [address] [place] [address] MCH (RBC) [Entitic mass] 22.4 pg Low 27.0-31.0 [facility] Comment on above: Performed By: #### 2 4336-0 #### [facility] [address] [place] [address] Director Of Employee Development - [employer] [id number] Performed for [facility] [address] [place], [place] [address] MCHC (RBC) [Mass/Vol] 30.8 g/dL Low 32.0-36.0 [facility] Comment on above: Performed By: #### 2 4336-0 #### [place] [address] [place] [address] Director Of Employee Development - [employer] [id number] Performed for [place] [address] [place], [place] [address] MCV (RBC) [Entitic vol] 72.8 fL Low 80.0-100.0 [facility] Comment on above: Performed By: #### 2 4336-0 #### [place] [address] [place] [address] Director Of Employee Development - [employer] [id number] Performed for [place] [address] [place], [place] [address] Monocytes (Bld) [#/Vol] 0.73 10*3/uL High 0.10-0.60 [facility] Comment on above: Performed By: #### 2 4336-0 #### [place] [address] [place] [address] Director Of Employee Development - [employer] [id number] Performed for [place] [address] [place], [place] [address] Monocytes/100 WBC (Bld) 7.3 % Normal <=8.0 [facility] Comment on above: Performed By: #### 2 4336-0 #### [place] [address] [place] [address] Director Of Employee Development - [employer] [id number] Performed for [place] [address] [place], [place] [address] Neutrophils (Bld) [#/Vol] 7.46 10*3/uL High 1.40-6.50 [facility] Comment on above: Performed By: #### 2 4336-0 #### [facility] [address] [place] [address] Director Of Employee Development - [employer] [id number] Performed for [facility] [address] [place], [place] [address] Neutrophils/100 WBC (Bld) 74.9 % High 50.0-70.0 [facility] Comment on above: Performed By: #### 2 4336-0 #### [facility] [address] [place] [address] Director Of Employee Development - [employer] [id number] Performed for [facility] [address] [place], [place] [address] Nucleated RBC (Bld) [#/Vol] 0.00 10*3/uL Normal <=0.10 [facility] Comment on above: Performed By: #### 2 4336-0 #### [place] [address] [place] [address] Director Of Employee Development - [employer] [id number] Performed for [facility] [address] [place], [place] [address] Platelet mean volume (Bld) [Entitic vol] 8.6 fL Low 9.0-13.0 [facility] Comment on above: Performed By: #### 2 4336-0 #### [facility] [address] [place] [address] Director Of Employee Development - [employer] [id number] Performed for [facility] [address] [place], [place] [address] Platelets (Bld) [#/Vol] 404 10*3/uL High 130-400 [facility] Comment on above: Performed By: #### 2 4336-0 #### [facility] [address] [place] [address] Director Of Employee Development - [employer] [id number] Performed for [place] [address] [place], [place] [address] RBC (Bld) [#/Vol] 5.00 10*6/uL Normal 4.00-6.30 [facility] Comment on above: Performed By: #### 2 4336-0 #### [facility] [address] [place] [address] Director Of Employee Development - [employer] [id number] Performed for [facility] [address] [place] [address] WBC (Bld) [#/Vol] 9.96 10*3/uL Normal 4.80-10.80 [facility] Comment on above: Performed By: #### 2 4336-0 #### [facility] [address] [place] [address] Director Of Employee Development - [employer] [id number] Performed for [facility] [address] [place] [address] CORTISOLon 09-24-2023 Cortisol [Mass/Vol] 8.1 ug/dL Normal [facility] Comment on above: Performed By: #### 2 143-6 #### [facility] [address] [place] [address] Director Of Employee Development - [employer] [id number] Cortisol [Mass/Vol]on 2022 [facility]ORT CORTISOL INTERPRETAT ION TIME REFERENCE RANGE 7:00-9:00 AM 4.30-22.40 ug/dL 3:00-5:00 PM 3.09-16.66 ug/dL Normal [facility] Comment on above: Performed By: #### 2 143-6 #### [facility] [address] [place] [address] Director Of Employee Development - [employer] HARTMANIA [id number] Hepatic function 2000 panelo n 09-24-2023 Albumin [Mass/Vol] 2.8 g/dL Low 3.4-5.0 [facility] Comment on above: Performed By: #### 2 4336-0 #### [facility] [address] [place] [address] Director Of Employee Development - [place] HART[employer]IA [id number] Performed for [facility] [address] [place] [address] Albumin/Globulin [Mass ratio] 0.6 {ratio} Low 1.0-2.2 [facility] Comment on above: Performed By: #### 2 4336-0 #### [facility] [address] [place], [place] [address] Director Of Employee Development - [employer] [id number] Performed for [facility] [address] [place], [place] [address] ALP [Catalytic activity/Vol] 88 U/L Normal 50-136 [facility] Comment on above: Performed By: #### 2 4336-0 #### [facility] [address] [place], [place] [address] Director Of Employee Development - [place] HART[employer] [id number] Performed for [facility] [address] [place], [place] [address] ALT [Catalytic activity/Vol] 24 U/L Normal 14-59 [facility] Comment on above: Performed By: #### 2 4336-0 #### [facility] [address] [place], [place] [address] Director Of Employee Development - [place] HART[employer] [id number] Performed for [facility] [address] [place], [place] [address] AST [Catalytic activity/Vol] 21 U/L Normal 15-37 [facility] Comment on above: Performed By: #### 2 4336-0 #### [facility] [address] [place], [place] [address] Director Of Employee Development - [employer] [id number] Performed for [facility] [address] [place], [place] [address] Bilirubin [Mass/Vol] 0.4 mg/dL Normal 0.2-1.0 [facility] Comment on above: Performed By: #### 2 4336-0 #### [facility] [address] [place], [place] [address] Director Of Employee Development - [employer] [id number] Performed for [facility] [address] [place], [place] [address] Bilirubin.conjugated [Mass/Vol] 0.1 mg/dL Normal <=0.2 [facility] Comment on above: Performed By: #### 2 4336-0 #### [facility] [address] [place] [address] Director Of Employee Development - [employer] [id number] Performed for [facility] [address] [place], [place] [address] Globulin (S) [Mass/Vol] 4.4 g/dL High 2.4-3.8 [facility] Comment on above: Performed By: #### 2 4336-0 #### [facility] [address] [place] [address] Director Of Employee Development - [employer] [id number] Performed for [facility] [address] [place] [address] Protein [Mass/Vol] 7.2 g/dL Normal 6.4-8.2 [facility] Comment on above: Performed By: #### 2 4336-0 #### [facility] [address] [place] [address] Director Of Employee Development - [employer] [id number] Performed for [facility] [address] [place], [place] [address] LACTATEon 09-24-2023 Lactate [Moles/Vol] 1.5 mmol/L Normal 0.4-2.0 [facility] Comment on above: Performed By: #### 2 524-7 #### [place] [address] [place] [address] Director Of Employee Development - [employer] [id number] PT Coag (PPP) [Time]on 09-24 HPTINR INR REFERENCE RANGE INTERPRETATION Patients on Coumadin 2.0 - 3.0 Patients with mechanical heart valves 2.5 - 3.5 Normal [facility] Comment on above: Performed By: #### 5 902-2 #### [facility] [address] [place] [address] Director Of Employee Development - [employer] [id number] INR Coag (PPP) [Relative time] 2.8 {INR} High 0.8-1.1 [facility] Comment on above: Performed By: #### 5 902-2 #### [place] [address] [place] [address] Director Of Employee Development - [employer] [id number] PT with INRon 09-24-2023 PT Coag (PPP) [Time] 27.3 s High 9.3-11.5 [facility] Comment on above: Performed By: #### 5 902-2 #### [facility] [address] [place] [address] Director Of Employee Development - [employer] [id number] URINALYSIS with reflex to CU LTUREon 09-24-2023 Bacteria LM Ql (Urine sed) Negative Normal TRACE [facility] Comment on above: Performed By: #### 2 4336-0 #### [facility] [address] [place] [address] Director Of Employee Development - [employer] [id number] Performed for [facility] [address] [place], [place] [address] Bilirubin (U) [Mass/Vol] Negative Normal NEGATIVE [facility] Comment on above: Performed By: #### 2 4336-0 #### [facility] [address] [place] [address] Director Of Employee Development - [employer] [id number] Performed for [facility] [address] [place], [place] [address] Clarity (U) CLOUDY Abnormal CLEAR [facility] Comment on above: Performed By: #### 2 4336-0 #### [facility] [address] [place] [address] Director Of Employee Development - [employer] [id number] Performed for [facility] [address] [place], [place] [address] Color (U) YELLOW Normal YELLOW [facility] Comment on above: Performed By: #### 2 4336-0 #### [facility] [address] [place] [address] Director Of Employee Development - [employer] SKINNRE [id number] Performed for [facility] [address] [place], [place] [address] Glucose Test strip (U) [Mass/Vol] Negative Normal NEGATIVE [facility] Comment on above: Performed By: #### 2 4336-0 #### [facility] [address] [place], [place] [address] Director Of Employee Development - [employer] [id number] Performed for [facility] [address] [place], [place] [address] HMICRO MICROSCOPIC Normal [facility] Comment on above: Performed By: #### 2 4336-0 #### [facility] [address] [place] [address] Director Of Employee Development - [employer] [id number] Performed for [facility] [address] [place], [place] [address] Hyaline casts (Urine sed) [#/Area] 0-8 Normal 0-8 [facility] Comment on above: Performed By: #### 2 4336-0 #### [facility] [address] [place] [address] Director Of Employee Development - [employer] [id number] Performed for [facility] [address] [place], [place] [address] Ketones (U) [Mass/Vol] 1+ Abnormal NEGATIVE [facility] Comment on above: Performed By: #### 2 4336-0 #### [facility] [address] [place] [address] Director Of Employee Development - [employer] [id number] Performed for [facility] [address] [place], [place] [address] Leukocyte esterase Qn (U) Negative Normal TRACE [facility] Comment on above: Performed By: #### 2 4336-0 #### [facility] [address] [place], [place] [address] Director Of Employee Development - [employer] [id number] Performed for [facility] [address] [place], [place] [address] Nitrite Ql (U) Negative Normal NEGATIVE [facility] Comment on above: Performed By: #### 2 4336-0 #### [facility] [address] [place] [address] Director Of Employee Development - [employer] [id number] Performed for [facility] [address] [place], [place] [address] pH (U) 8.0 [pH] High 5.5-7.5 [facility] Comment on above: Performed By: #### 2 4336-0 #### [facility] [address] [place], [place] [address] Director Of Employee Development - [employer] [id number] Performed for [facility] [address] [place], [place] [address] Protein (U) [Mass/Vol] Negative Normal NEGATIVE [facility] Comment on above: Performed By: #### 2 4336-0 #### [facility] [address] [place], [place] [address] Director Of Employee Development - [employer] [id number] Performed for [facility] [address] [place], [place] [address] RBC (U) [#/Vol] TRACE Abnormal NEGATIVE [facility] Comment on above: Performed By: #### 2 4336-0 #### [facility] [address] [place] [address] Director Of Employee Development - [employer] [id number] Performed for [facility] [address] [place], [place] [address] RBC LM.HPF (Urine sed) [#/Area] 4-10 Abnormal 0-4 [facility] Comment on above: Performed By: #### 2 4336-0 #### [facility] [address] [place], [place] [address] Director Of Employee Development - [employer] [id number] Performed for [facility] [address] [place], [place] [address] Specific gravity (U) [Rel density] 1.013 Normal 1.010-1.03 5 [facility] Comment on above: Performed By: #### 2 4336-0 #### [facility] [address] [place], [place] [address] Director Of Employee Development - [employer] [id number] Performed for [facility] [address] [place], [place] [address] SQUAMOUS EPITHELIALS 0-5 Normal 0-5 [facility] Comment on above: Performed By: #### 2 4336-0 #### [facility] [address] [place] [address] Director Of Employee Development - [employer] [id number] Performed for [facility] [address] [place], [place] [address] Urobilinogen Qn (U) 0.2 {Luis Fernando'U}/dL Normal <=1.0 [facility] Comment on above: Performed By: #### 2 4336-0 #### [facility] [address] [place] [address] Director Of Employee Development - [employer] [id number] Performed for [facility] [address] [place] [address] WBC LM.HPF (Urine sed) [#/Area] 0-5 Normal 0-5 [facility] Comment on above: Performed By: #### 2 4336-0 #### [facility] [address] [place] [address] Director Of Employee Development - [employer] [id number] Performed for [facility] [address] [place], [place] [address] URINE DRUG SCREEN with CONFI RMATIONon 09-24-2023 Amphetamines Ql (U) Not detected Normal CUTOFF = 500 [facility] Comment on above: Performed By: #### 2 4336-0 #### [facility] [address] [place] [address] Director Of Employee Development - [employer] [id number] Performed for [facility] [address] [place], [place] [address] Barbiturates Ql (U) Not detected Normal CUTOFF = 200 [facility] Comment on above: Performed By: #### 2 4336-0 #### [facility] [address] [place] [address] Director Of Employee Development - [employer] [id number] Performed for [facility] [address] [place], [place] [address] Benzodiazepines Ql (U) Not detected Normal CUTOF F = 150 [facility] Comment on above: Performed By: #### 2 4336-0 #### [facility] [address] [place] [address] Director Of Employee Development - [employer] [id number] Performed for [facility] [address] [place], [place] [address] Cocaine Ql (U) Not detected Normal CUTOFF = 150 [facility] Comment on above: Performed By: #### 2 4336-0 #### [facility] [address] [place] [address] Director Of Employee Development - [employer] [id number] Performed for [facility] [address] [place], [place] [address] HDRUG Drugs of abuse juli garnica provides only a preliminary analytical test result. A more specific alternate chemical method must be used in order to obtain a confimed analytical result. Clinical consideration and professional judgment should be applied to any drug of abuse test result, particularly when preliminary positive results are obtained. Normal [facility] Comment on above: Performed By: #### 2 4336-0 #### [facility] [address] [place] [address] Director Of Employee Development - [employer] [id number] Performed for [facility] [address] [place], [place] [address] Opiates Ql (U) Not detected Normal CUTOFF = 300 [facility] Comment on above: Performed By: #### 2 4336-0 #### [facility] [address] [place] [address] Director Of Employee Development - [employer] [id number] Performed for [facility] [address] [place], [place] [address] oxyCODONE Ql (U) Detected Abnormal CUTOFF = 100 [facility] Comment on above: Performed By: #### 2 4336-0 #### [facility] [address] [place] [address] Director Of Employee Development - [employer] [id number] Performed for [facility] [address] [place], [place] [address] Phencyclidine Ql (U) Not detected Normal CUTOFF = 25 [facility] Comment on above: Performed By: #### 2 4336-0 #### [facility] [address] [place] [address] Director Of Employee Development - [employer] [id number] Performed for [facility] [address] [place] [address] Tetrahydrocannabinol Ql (U) Not detected Normal CUTOFF = 50 [facility] Comment on above: Performed By: #### 2 4336-0 #### [facility] [address] [place] [address] Director Of Employee Development - [employer] [id number] Performed for [facility] [address] [place], [place] [address] ACETAMINOPHENon 09-23-2023 Acetaminophen [Mass/Vol] ug/mL Low 10.0-30.0 [facility] Comment on above: Performed By: #### 1 9123-9, LIPASE, 71654-8 #### [facility] [address] [place] [address] Director Of Employee Development - [employer] [id number] ALCOHOLon 09-23-2023 Ethanol [Mass/Vol] mg/dL Normal <=3 [facility] Comment on above: Performed By: #### 1 9123-9, LIPASE, 99930-3 #### [facility] [address] [place] [address] Director Of Employee Development - [employer] [id number] AMMONIAon 09-23-2023 Ammonia (P) [Moles/Vol] 30 umol/L Normal 11-32 [facility] Comment on above: Performed By: #### 1 9123-9, LIPASE, 78138-5 #### [facility] [address] [place] [address] Director Of Employee Development - [employer] [id number] Acetaminophen [Mass/Vol]on 11-23-2022 HACET ACETAMINOPHEN INTERPRETATION Significant liver damage is considered likely if drug levels are greater than 300 ug/mL at 4 hours after ingestion or levels of 50 ug/mL after 12 hours. Normal [facility] Comment on above: Performed By: #### 1 9123-9, LIPASE, 92634-0 #### [facility] [address] [place] [address] Director Of Employee Development - [employer] [id number] CBC W Auto Differential pane l (Bld)on 09-23-2023 Basophils (Bld) [#/Vol] 0.06 10*3/uL Normal <=0.70 [facility] Comment on above: Performed By: #### 5 7021-8 #### [facility] [address] [place] [address] Director Of Employee Development - [place] HARTMANIA [id number] Basophils/100 WBC (Bld) 0.4 % Normal <=2.0 [facility] Comment on above: Performed By: #### 5 7021-8 #### [address] Director - [place] [employer] [id number] Eosinophils (Bld) [#/Vol] 0.03 10*3/uL Normal <=0.70 [facility] Comment on above: Performed By: #### 5 7021-8 #### [place] [address] Director - [place] HART[employer]IA [id number] Eosinophils/100 WBC (Bld) 0.2 % Normal <=10.0 [facility] Comment on above: Performed By: #### 5 7021-8 #### [address] [place] [address] Director Of Employee Development - [employer] [id number] Erythrocyte distribution width (RBC) [Entitic vol] 52.5 fL High 36.4-46.3 [facility] Comment on above: Performed By: #### 5 7021-8 #### [facility] [address] [place] [address] Director Of Employee Development - [place] [employer] [id number] Hematocrit (Bld) [Volume fraction] 35.8 % Low 37.0-47.0 [facility] Comment on above: Performed By: #### 5 7021-8 #### [address] [place] [address] Director Of Employee Development - [employer] [id number] Hemoglobin (Bld) [Mass/Vol] 10.7 g/dL Low 12.0-16.0 [facility] Comment on above: Performed By: #### 5 7021-8 #### [place] [address] Director Of Employee Development - [employer] Maldonado CLIA [id number] Immature granulocytes (Bld) [#/Vol] 0.06 10*3/uL Normal <=0.10 [facility] Comment on above: Performed By: #### 5 7021-8 #### [place] [address] Director Of Employee Development - [employer] Maldonado CLIA [id number] Immature granulocytes/100 WBC (Bld) 0.40 % Normal <=1.50 [facility] Comment on above: Performed By: #### 5 7021-8 #### [place] [address] Director Of Employee Development - [employer] Maldonado CLIA [id number] Lymphocytes (Bld) [#/Vol] 1.27 10*3/uL Normal 1.20-3.40 [facility] Comment on above: Performed By: #### 5 7021-8 #### [place] [address] Director Of Employee Development - [employer] Maldonado CLIA [id number] Lymphocytes/100 WBC (Bld) 8.9 % Low 20.0-40.0 [facility] Comment on above: Performed By: #### 5 7021-8 #### [place] [address] Director Of Employee Development - [employer] Maldonado CLIA [id number] MCH (RBC) [Entitic mass] 22.0 pg Low 27.0-31.0 [facility] Comment on above: Performed By: #### 5 7021-8 #### [place] [address] Director Of Employee Development - [employer] [employer]donado CLIA [id number] MCHC (RBC) [Mass/Vol] 29.9 g/dL Low 32.0-36.0 [facility] Comment on above: Performed By: #### 5 7021-8 #### [facility] [address] [facility] [place] [address] Director Of Employee Development - [place] HARTMANIA [id number] MCV (RBC) [Entitic vol] 73.5 fL Low 80.0-100.0 [facility] Comment on above: Performed By: #### 5 7021-8 #### [address] [place] [address] Director Of Employee Development - [employer] Maldonado CLIA [id number] Monocytes (Bld) [#/Vol] 0.53 10*3/uL Normal 0.10-0.60 [facility] Comment on above: Performed By: #### 5 7021-8 #### [address] [place] [address] Director Of Employee Development - [employer] Maldonado CLIA [id number] Monocytes/100 WBC (Bld) 3.7 % Normal <=8.0 [facility] Comment on above: Performed By: #### 5 7021-8 #### [address] [place] [address] Director Of Employee Development - [employer] Maldonado CLIA [id number] Neutrophils (Bld) [#/Vol] 12.32 10*3/uL High 1.40-6.50 [facility] Comment on above: Performed By: #### 5 7021-8 #### [address] [place] [address] Director Of Employee Development - [employer] Maldonado CLIA [id number] Neutrophils/100 WBC (Bld) 86.4 % High 50.0-70.0 [facility] Comment on above: Performed By: #### 5 7021-8 #### [address] [place] [address] Director Of Employee Development - [employer] Maldonado CLIA [id number] Nucleated RBC (Bld) [#/Vol] 0.00 10*3/uL Normal <=0.10 [facility] Comment on above: Performed By: #### 5 7021-8 #### [facility] [address] [place] [address] Director Of Employee Development - [employer] [id number] Platelet mean volume (Bld) [Entitic vol] 8.7 fL Low 9.0-13.0 [facility] Comment on above: Performed By: #### 5 7021-8 #### [facility] [address] [place] [address] Director Of Employee Development - [employer] [id number] Platelets (Bld) [#/Vol] 436 10*3/uL High 130-400 [facility] Comment on above: Performed By: #### 5 7021-8 #### [place] [address] [place] [address] Director Of Employee Development - [employer] [id number] RBC (Bld) [#/Vol] 4.87 10*6/uL Normal 4.00-6.30 [facility] Comment on above: Performed By: #### 5 7021-8 #### [place] [address] [place] [address] Director Of Employee Development - [employer] [id number] WBC (Bld) [#/Vol] 14.27 10*3/uL High 4.80-10.80 [facility] Comment on above: Performed By: #### 5 7021-8 #### [place] [address] [place] [address] Director Of Employee Development - [employer] [id number] [facility] CK [Catalytic activity/Vol] 108 U/L Normal 21-215 [facility] Comment on above: Performed By: #### 2 4336-0 #### [facility] [address] [place] [address] Director Of Employee Development - [employer] [id number] Performed for [facility] [address] [place] [address] [address] HEAD WITHOUT ONLYon 09-23 CT HEAD [...] intracranial hemorrhage or other acute finding. Normal [facility] Comprehensive metabolic 2000 panelon 09-23-2023 Albumin [Mass/Vol] 3.1 g/dL Low 3.4-5.0 [facility] Comment on above: Performed By: #### 1 9123-9, LIPASE, 95505-9 #### [facility] [address] [place] [address] Director Of Employee Development - [employer] HARTMANIA [id number] ALP [Catalytic activity/Vol] 98 U/L Normal 50-136 [facility] Comment on above: Performed By: #### 1 9123-9, LIPASE, 56970-6 #### [facility] [address] [place] [address] Director Of Employee Development - [employer] HARTMANIA [id number] ALT [Catalytic activity/Vol] 26 U/L Normal 14-59 [facility] Comment on above: Performed By: #### 1 9123-9, LIPASE, 90658-6 #### [facility] [address] [place] [address] Director Of Employee Development - [employer] HARTMANIA [id number] Anion gap [Moles/Vol] 8.0 mmol/L Normal <=15.0 [facility] Comment on above: Performed By: #### 1 9123-9, LIPASE, 45943-4 #### [facility] [address] [place] [address] Director Of Employee Development - [employer] HARTMANIA [id number] AST [Catalytic activity/Vol] 24 U/L Normal 15-37 [facility] Comment on above: Performed By: #### 1 9123-9, LIPASE, 31213-2 #### [facility] [address] [place] [address] Director Of Employee Development - [employer] HARTMANIA [id number] Bilirubin [Mass/Vol] 0.4 mg/dL Normal 0.2-1.0 [facility] Comment on above: Performed By: #### 1 23-9, LIPASE, 54439-8 #### [facility] [address] [place] [address] Director Of Employee Development - [employer] Maldonado CLIA [id number] Calcium [Mass/Vol] 8.5 mg/dL Normal 8.5-10.1 [facility] Comment on above: Performed By: #### 1 9122-9, LIPASE, 77756-7 #### [facility] [address] [place] [address] Director Of Employee Development - [employer] HARTMANIA [id number] Chloride [Moles/Vol] 99 mmol/L Normal 98-107 [facility] Comment on above: Performed By: #### 1 9122-9, LIPASE, 78050-9 #### [facility] [address] [place] [address] Director Of Employee Development - [employer] Maldonado CLIA [id number] CO2 [Moles/Vol] 24 mmol/L Normal 21-32 [facility] Comment on above: Performed By: #### 1 23-9, LIPASE, 32150-8 #### [facility] [address] [place] [address] Director Of Employee Development - [employer] HARTMANIA [id number] Creatinine [Mass/Vol] 0.74 mg/dL Normal 0.51-0.95 [facility] Comment on above: Performed By: #### 1 23-9, LIPASE, 26735-6 #### [facility] [address] [place] [address] Director Of Employee Development - [employer] Maldonado CLIA [id number] GFR/1.73 sq M.predicted MDRD (S/P/Bld) [Vol rate/Area] mL/min/{1.73_m2} Normal >=59 [facility] Comment on above: Performed By: #### 1 9122-9, LIPASE, 71043-5 #### [facility] [address] [place] [address] Director Of Employee Development - [employer] [id number] Glucose [Mass/Vol] 108 mg/dL High 74-106 [facility] Comment on above: Performed By: #### 1 23-9, LIPASE, 60602-3 #### [facility] [address] [place] [address] Director Of Employee Development - [employer] [id number] HGFR GLOMERULAR FILTRATIO N RATE INTERPRETATION~The eGFR [...] months, with or without kidney damage.~ Normal [facility] Comment on above: Performed By: #### 1 23-9, LIPASE, 24278-4 #### [facility] [address] [place] [address] Director Of Employee Development - [employer] [id number] Potassium [Moles/Vol] 4.5 mmol/L Normal 3.5-5.1 [facility] Comment on above: Performed By: #### 1 23-9, LIPASE, 56100-8 #### [facility] [address] [place] [address] Director Of Employee Development - [employer] [id number] Protein [Mass/Vol] 7.8 g/dL Normal 6.4-8.2 [facility] Comment on above: Performed By: #### 1 23-9, LIPASE, 62821-3 #### [facility] [address] [place] [address] Director Of Employee Development - [employer] [id number] Sodium [Moles/Vol] 131 mmol/L Low 136-145 [facility] Comment on above: Performed By: #### 1 9123-9, LIPASE, 94384-5 #### [facility] [address] [place] [address] Director Of Employee Development - [employer] [id number] Urea nitrogen [Mass/Vol] 12 mg/dL Normal - [facility] Comment on above: Performed By: #### 1 9123-9, LIPASE, 30646-1 #### [facility] [address] [place] [address] Director Of Employee Development - [employer] [id number] Ethanol [Mass/Vol]on 023 HALC ALCOHOL INTERPRETATI ON <3 mg/dL Negative 50-100 mg/dL Toxic >100 Depression of [employer] ALCOHOL UNIT CONVERSION To convert to g/dL divide result by 1000. Normal [facility] Comment on above: Performed By: #### 1 9123-9, LIPASE, 29639-8 #### [facility] [address] [place] [address] Director Of Employee Development - [employer] [id number] FOLATEon 09-23-2023 Folate [Mass/Vol] ng/mL High 3.1-17.5 [facility] Comment on above: Result Comment: Spec imen slightly hemolyzed. Test results may be affected. Performed By: #### 2 4336-0 #### [facility] [address] [place] [address] Director Of Employee Development - [employer] [id number] Performed for [facility] [address] [place] [address] Gas panel (BldA)on 3 Base excess Calc (Bld) [Moles/Vol] 1 mmol/L Normal -2-2 [facility] Comment on above: Performed By: #### 2 4336-0 #### [facility] [address] [place] [address] Director Of Employee Development - [employer] [id number] Performed for [facility] [address] [place], [place] [address] Carboxyhemoglobin (BldA) [Mass fraction] 3.5 % Normal [facility] Comment on above: Performed By: #### 2 4336-0 #### [facility] [address] [place], [place] [address] Director Of Employee Development - [employer] [id number] Performed for [facility] [address] [place], [place] [address] Chloride [Moles/Vol] 98 mmol/L Normal 98-107 [facility] Comment on above: Performed By: #### 2 4336-0 #### [facility] [address] [place], [place] [address] Director Of Employee Development - [employer] [id number] Performed for [facility] [address] [place], [place] [address] CO2 (Bld) [Partial pressure] 36.8 mm/Hg Normal 35.0-45.0 [facility] Comment on above: Performed By: #### 2 4336-0 #### [facility] [address] [place], [place] [address] Director Of Employee Development - [employer] [id number] Performed for [facility] [address] [place], [place] [address] DEOXYHEMOGLOBIN 6 % Normal [facility] Comment on above: Performed By: #### 2 4336-0 #### [facility] [address] [place], [place] [address] Director Of Employee Development - [employer] [id number] Performed for [facility] [address] [place], [place] [address] FLOW Normal [facility] Comment on above: Performed By: #### 2 4336-0 #### [facility] [address] [place], [place] [address] Director Of Employee Development - [employer] [id number] Performed for [facility] [address] [place], [place] [address] Glucose [Mass/Vol] 95 mg/dL Normal 65-110 [facility] Comment on above: Performed By: #### 2 4336-0 #### [facility] [address] [place] [address] Director Of Employee Development - [employer] [id number] Performed for [facility] [address] [place] [address] HCARBOXY NON-SMOKERS 0.0-1.5% SMOKERS 1.5-5.0% Normal [facility] Comment on above: Performed By: #### 2 4336-0 #### [facility] [address] [place] [address] Director Of Employee Development - [employer] [id number] Performed for [facility] [address] [place] [address] HCO3 (Bld) [Moles/Vol] 24.6 mmol/L Normal 22.0-26.0 [facility] Comment on above: Performed By: #### 2 4336-0 #### [facility] [address] [place] [address] Director Of Employee Development - [employer] [id number] Performed for [facility] [address] [place] [address] HEADING CO-OXIMETRY CO-OXIMETRY Normal [facility] Comment on above: Performed By: #### 2 4336-0 #### [facility] [address] [place] [address] Director Of Employee Development - [employer] [id number] Performed for [facility] [address] [place] [address] HEADING CO-OXIMETRY CHEMISTRY Normal [facility] Comment on above: Performed By: #### 2 4336-0 #### [facility] [address] [place] [address] Director Of Employee Development - [employer] [id number] Performed for [facility] [address] [place] [address] Hemoglobin (Bld) [Mass/Vol] 11.1 g/dL Low 12.0-16.0 [facility] Comment on above: Performed By: #### 2 4336-0 #### [facility] [address] [place] [address] Director Of Employee Development - [employer] [id number] Performed for [facility] [address] [place], [place] [address] IONIZED CA 1.1 mmol/L Normal 1.1-1.4 [facility] Comment on above: Performed By: #### 2 4336-0 #### [facility] [address] [place] [address] Director Of Employee Development - [employer] [id number] Performed for [facility] [address] [place], [place] [address] Lactate [Moles/Vol] 2.8 mmol/L High 0.4-2.0 [facility] Comment on above: Performed By: #### 2 4336-0 #### [facility] [address] [place] [address] Director Of Employee Development - [employer] [id number] Performed for [facility] [address] [place], [place] [address] M.A.T. Positive Normal POSITIVE [facility] Comment on above: Performed By: #### 2 4336-0 #### [facility] [address] [place] [address] Director Of Employee Development - [employer] [id number] Performed for [facility] [address] [place], [place] [address] Methemoglobin (BldA) [Mass fraction] 0.3 % Normal 0.0-1.5 [facility] Comment on above: Performed By: #### 2 4336-0 #### [facility] [address] [place] [address] Director Of Employee Development - [employer] [id number] Performed for [facility] [address] [place], [place] [address] MODE Normal MODE [facility] Comment on above: Performed By: #### 2 4336-0 #### [facility] [address] [place] [address] Director Of Employee Development - [employer] [id number] Performed for [facility] [address] [place], [place] [address] Oxygen (Bld) [Partial pressure] 65 mm/Hg Low 80-100 [facility] Comment on above: Performed By: #### 2 4336-0 #### [facility] [address] [place], [place] [address] Director Of Employee Development - [employer] [id number] Performed for [facility] [address] [place], [place] [address] Oxygen capacity (BldA) [Volume fraction] 21 % Normal [facility] Comment on above: Performed By: #### 2 4336-0 #### [facility] [address] [place], [place] [address] Director Of Employee Development - [employer] [id number] Performed for [facility] [address] [place], [place] [address] Oxyhemoglobin (BldA) [Mass fraction] 91 % Low 92-100 [facility] Comment on above: Performed By: #### 2 4336-0 #### [facility] [address] [place] [address] Director Of Employee Development - [employer] [id number] Performed for [facility] [address] [place], [place] [address] PEEP Normal [facility] Comment on above: Performed By: #### 2 4336-0 #### [facility] [address] [place], [place] [address] Director Of Employee Development - [employer] [id number] Performed for [facility] [address] [place], [place] [address] pH (Bld) 7.443 [pH] Normal 7.350-7.45 0 [facility] Comment on above: Performed By: #### 2 4336-0 #### [facility] [address] [place] [address] Director Of Employee Development - [employer] [id number] Performed for [facility] [address] [place], [place] [address] Potassium [Moles/Vol] 4.1 mmol/L Normal 3.2-5.1 [facility] Comment on above: Performed By: #### 2 4336-0 #### [facility] [address] [place], [place] [address] Director Of Employee Development - [employer] [id number] Performed for [facility] [address] [place], [place] [address] RATE 14 Normal [facility] Comment on above: Performed By: #### 2 4336-0 #### [facility] [address] [place], [place] [address] Director Of Employee [employer] - [employer] [id number] Performed for [facility] [address] [place], [place] [address] TIDAL VOLUME Normal [facility] Comment on above: Performed By: #### 2 4336-0 #### [facility] [address] [place], [place] [address] Director Of Employee Development - [employer] [id number] Performed for [facility] [address] [place], [place] [address] Tumor site Nom (Spec) R RADIAL Normal SITE [facility] Comment on above: Performed By: #### 2 4336-0 #### [facility] [address] [place], [place] [address] Director Of Employee Development - [employer] SK[employer]ENR [id number] Performed for [facility] [address] [place], [place] [address] ARTERIAL BLOOD GAS Normal 131-143 [facility] Comment on above: Performed By: #### 2 4336-0 #### [facility] [address] [place], [place] [address] Director Of Employee Development - [employer] [id number] Performed for [facility] [address] [place], [place] [address] LACTATEon 09-23-2023 Lactate [Moles/Vol] 2.5 mmol/L High 0.4-2.0 [facility] Comment on above: Performed By: #### 2 524-7 #### [facility] [address] [place], [place] [address] Director Of Employee Development - [employer] [id number] Lactate [Moles/Vol] 3.1 mmol/L High 0.4-2.0 [facility] Comment on above: Performed By: #### 2 524-7 #### [facility] [address] [place] [address] Director Of Employee Development - [employer] [id number] LIPASEon 09-23-2023 LIPASES 37 U/L Normal 13 [facility] Comment on above: Performed By: #### 1 9123-9, LIPASE, 83095-5 #### [facility] [address] [place] [address] Director Of Employee Development - [employer] [id number] MAGNESIUMon 09-23-2023 Magnesium [Mass/Vol] 1.9 mg/dL Normal 1.6-2.6 [facility] Comment on above: Result Comment: Spec imen moderately hemolyzed. Test results may be affected. Performed By: #### 1 9123-9, LIPASE, 70917-8 #### [facility] [address] [place] [address] Director Of Employee Development - [employer] [id number] PT and aPTT panel Coag (PPP) on 09-23-2023 aPTT Coag (PPP) [Time] 38.1 s High 23.5-31.3 [facility] Comment on above: Performed By: #### 3 4529-8 #### [facility] [address] [place] [address] Director Of Employee Development - [employer] [id number] HPTINR INR REFERENCE RANGE INTERPRETATION Patients on Coumadin 2.0 - 3.0 Patients with mechanical heart valves 2.5 - 3.5 Normal [facility] Comment on above: Performed By: #### 3 4529-8 #### [facility] [address] [place] [address] Director Of Employee Development - [employer] [id number] INR Coag (PPP) [Relative time] 3.2 {INR} High 0.8-1.1 [facility] Comment on above: Performed By: #### 3 4529-8 #### [facility] [address] [place] [address] Director Of Employee Development - [employer] [id number] PT Coag (PPP) [Time] 30.4 s High 9.3-11.5 [facility] Comment on above: Performed By: #### 3 4529-8 #### [facility] [address] [place] [address] Director Of Employee Development - [employer] HARTMANIA [id number] SALICYLATEon 09-23-2023 Salicylates [Mass/Vol] 5.6 mg/dL Normal 2.8-20.0 [facility] Comment on above: Performed By: #### 2 524-7 #### [facility] [address] [place] [address] Director Of Employee Development - [employer] [id number] TROPONIN HIGH SENSITIVITYon 09-23-2023 TNIH 6.60 pg/mL Normal <=59.00 [facility] Comment on above: Result Comment: <59 pg/mL is considered a negative result. Performed By: #### T ROP2 #### [place] [address] [place] [address] Director Of Employee Development [facility] CLIA [id number] TNIH 7.60 pg/mL Normal <=59.00 [facility] Comment on above: Result Comment: <59 pg/mL is considered a negative result. Performed By: #### 1 9123-9, LIPASE, 62730-0 #### [place] [address] [place] [address] Director Of Employee Development - [employer] HARTMANIA [id number] TSH DL <= 0.05 mIU/L Qnon TSH Qn 0.948 uIU/mL Normal 0.358-3.74 0 [facility] Comment on above: Performed By: #### 2 4336-0 #### [facility] [address] [place] [address] Director Of Employee Development - [facility]St[facility] CenterIA [id number] Performed for [facility] [address] [place] [address] VITAMIN B12on 09-23-2023 Cobalamin (Vitamin B12) [Mass/Vol] 446 pg/mL Normal 254-1320 [facility] Comment on above: Performed By: #### 2 4336-0 #### [facility] [address] [place], [place] [address] Director Of Employee Development - [employer] [id number] Performed for [facility] [address] [place], [place] [address] C REACTIVE PROTEINon 022 CRP [Mass/Vol] 28.1 mg/L High 0 - 10.0 MG/L [facility] Interpretation and review of laboratory results Abnormal [facility] SEDIMENTATION RATE, AUTOMATE Don 12-22-2021 ESR (Bld) [Velocity] 130 mm/h High [facility] Interpretation and review of laboratory results Abnormal [facility] Ova and Parasite Exon 2019 Ova and Parasite Ex Specimen Desc: STOOL Sp. Request/Comment: OPKIT Culture Result NOPARA Report Status 06/11/2020 FINAL Normal [facility] CREFon 12-29-2018 CREF . MICRO - Microbiology PROCEDURE: Culture Reference ID [[id number]: [id number] *1] SOURCE: Body Fluid BODY SITE: COLLECTED DATE/TIME: 12/12/2018 11:25 EST RECEIVED DATE/TIME: 12/17/2018 17:16 EST START DATE/TIME: 12/17/2018 17:20 EST FREE TEXT SOURCE: Pasteurella multocida R knee fluid FINAL REPORTS Final Report [] Verified Date/Time/Personnel: 12/29/2018 11:40 EST Pasteurella multocida Azithromycin: 0.5: S Levofloxacin: <=0.06: S Penicillin: 0.12: S Trimethoprim/Sulfamethoxa zole: <=0.12/2.4: S Ampicillin: 0.25: S Tetracycline: <=1: S Performed by [facility], [address] [place] [address], [place] [address] [email or web address], Duong Gonzalez MD, Lab.Director PRELIMINARY REPORTS Preliminary Report [] Verified Date/Time/Personnel: 12/19/2018 08:10 EST Pasteurella multocida MAYA to follow Preliminary Report [] Verified Date/Time/Personnel: 12/18/2018 12:56 EST Culture results pending. Order Comments O1: Culture Reference ID send to [facility] for maya on Pasturella multocida. Performing Locations *1: This test was performed at: [facility], [address] [place] [address], [address] , [facility] ([place]) Comment on above: Performed By: #### C REF #### [place] [address] B12 & FOLATEon 12-17-2018 Cobalamin (Vitamin B12) mass conc 838 pg/mL 180 - 914 PG/ML [facility] Folate mass conc 20.1 ng/mL >5.9 NG/ML [facility] CBC, EDIF, PLATELETon 2018 ABSOLUTE BASOPHIL COUNT 0.1 X10 [facility] Basophils/100 WBC (Bld) 0.9 % 0 - 2 % [facility] Differential cell count method Nom (Bld) AUTO DIFF % [facility] Eosinophils #/vol (Bld) 0.20 [...] HEALTH RBC #/vol (Bld) 3.40 10*6/uL Low [facility] WBC #/vol (Bld) 7.3 10*3/uL [facility] IRON/IRON BINDING/TRANSFERRI Non 12-17-2018 Iron binding capacity mass conc 189 Low [facility] Iron mass conc 21 ug/dL Low [facility] Iron saturation mass fraction 11 % [facility] Otheron 12-17-2018 Interpretation and review of laboratory results Abnormal [facility] PROTIME-INRon 12-17-2018 INR Coag RelTime (PPP) 2.08 {INR} High [facility] Comment on above: 2.0-3.0 THERAPEUTIC RANGE 2.5-3.5 PROSTHETIC VALVE RANGE Prothrombin time (PT) Coag time (PPP) 22.9 s High [facility] RENAL FUNCTION PANELon 12-17 Albumin mass conc 2.1 G/dl Low 3.5 - 5 G/dl [facility] Calcium mass conc 7.8 mg/dL Low [facility] Chloride molar conc 111 mmol/L High [facility] CO2 molar conc 27 mmol/L [facility] Creatinine mass conc 0.7 mg/dL [facility] GFR/1.73 sq M predicted among blacks MDRD vol rate/area (S/P/Bld) mL/min/{1.73_m2} ml/min/1.7 3sq.m [facility] GFR/1.73 sq M predicted among non-blacks MDRD vol rate/area (S/P/Bld) Average GFR for 60-69 years old = 85. [facility] Comment on above: Chronic Kidney disea se, GFR = <60. Kidney failure, GFR = <15. The GFR estimate is not adjusted for extreme body surface area or acute process, nor has it been validated for women or ethnic groups other than and . GFR/1.73 sq M predicted among non-blacks MDRD vol rate/area (S/P/Bld) mL/min/{1.73_m2} ml/min/1.7 3sq.m [facility] Glucose fasting mass conc 82 mg/dL [employer] [facility] Comment on above: NORMAL <100 mg/dL PREDIABETES 101-126 mg/dL DIABETES 126 mg/dL or higher Phosphate mass conc 4.2 mg/dL [facility] Potassium molar conc 3.6 mmol/L [facility] Sodium molar conc 140 mmol/L [facility] Urea nitrogen mass conc 12 mg/dL [facility] CO-OP SURGICAL PATHOLOGY REQUESTon 12-17-2018 Pathology report final diagnosis Narrative Surgical Final Report Patient Name: AMNA SEQUEIRA Med. Rec. #: [id number] Physician: GALINDO ZEPEDA Copy To: DARREN SMITH Specimen(s) Received Fluid for crystals Other Related Clinical Data Not provided Clinical / Pre-Operative Diagnosis Not provided Post-Operative Diagnosis Not provided Surgical Procedure Synovial fluid aspiration Diagnosis: Synovial Fluid, Crystal Analysis, aspiration: -Negative for Crystals Electronically Signed [facility]/12/17/2018 Libra Caal MD Gross Description: The specimen is received in heparin, and labeled fluid for crystals, Amna Sequeira, and date of 1955. The specimen consists of 2 ml of red, opaque fluid. A slide is created for microscopic examination. Billing Fee Code(s) A: 82790 [facility] XR CHEST PORTABLE FOR LINE P LACEMENTon [...] tip projecting at the atrial caval junction. [facility] Impression: No acute findings. Right PICC line positioning with tip projecting at the atrial caval junction. [facility] User, Interfaces - 12/17/2018 6:37 PM EST [...] tip projecting at the atrial caval junction. [facility] CBC, EDIF, PLATELETon 2018 ABSOLUTE BASOPHIL COUNT 0.1 X10 [facility] Basophils/100 WBC (Bld) 1.0 % 0 - 2 % [facility] Differential cell count method Nom (Bld) AUTO DIFF % [facility] Eosinophils #/vol (Bld) 0.20 10*3/uL X10 [facility] Eosinophils/100 WBC (Bld) 1.9 % 0 - 11 % [facility] Erythrocyte distribution width Ratio (RBC) 18.6 % High 11.5 - 14.5 % [facility] Hematocrit Volume Fraction (Bld) 28.0 % Low 36 - 48 % [facility] Hemoglobin mass conc (Bld) 9.4 g/dL Low [facility] Lymphocytes #/vol (Bld) 1.60 10*3/uL X10 [facility] Lymphocytes/100 WBC (Bld) 16.4 % Low 20 - 55 % [facility] MCH Entitic mass (RBC) 29.0 pg 26 - 35 PG [facility] MCHC mass conc (RBC) 33.5 g/dL [facility] MCV Entitic volume (RBC) 86.4 fL [facility] Monocytes #/vol (Bld) 0.6 10*3/uL X10 [facility] Monocytes/100 WBC (Bld) 6.4 % 0 - 10 % [facility] Neutrophils #/vol (Bld) 7.2 10*3/uL High [facility] Neutrophils/100 WBC (Bld) 74.3 % 37 - 75 % [facility] Platelet mean volume Entitic volume (Bld) 8.5 fL [facility] Platelets #/vol (Bld) 431 10*3/uL High [facility] RBC #/vol (Bld) 3.23 10*6/uL Low [facility] WBC #/vol (Bld) 9.6 10*3/uL [facility] Otheron 12-16-2018 Interpretation and review of laboratory results Abnormal [facility] PROTIME-INRon 12-16-2018 INR Coag RelTime (PPP) 1.81 {INR} High [facility] Comment on above: 2.0-3.0 THERAPEUTIC RANGE 2.5-3.5 PROSTHETIC VALVE RANGE Prothrombin time (PT) Coag time (PPP) 20.6 s High [facility] RENAL FUNCTION PANELon 12-16 Albumin mass conc 1.9 G/dl Low 3.5 - 5 G/dl [facility] Calcium mass conc 7.7 mg/dL Low [facility] Chloride molar conc 108 mmol/L High [facility] CO2 molar conc 23 mmol/L [facility] Creatinine mass conc 0.7 mg/dL [facility] GFR/1.73 sq M predicted among blacks MDRD vol rate/area (S/P/Bld) mL/min/{1.73_m2} ml/min/1.7 3sq.m [facility] GFR/1.73 sq M predicted among non-blacks MDRD vol rate/area (S/P/Bld) mL/min/{1.73_m2} ml/min/1.7 3sq.m [facility] GFR/1.73 sq M predicted among non-blacks MDRD vol rate/area (S/P/Bld) Average GFR for 60-69 years old = 85. [facility] Comment on above: Chronic Kidney disea se, GFR = <60. Kidney failure, GFR = <15. The GFR estimate is not adjusted for extreme body surface area or acute process, nor has it been validated for women or ethnic groups other than and . Glucose fasting mass conc 87 mg/dL [facility] Comment on above: NORMAL <100 mg/dL PREDIABETES 101-126 mg/dL DIABETES 126 mg/dL or higher Phosphate mass conc 2.9 mg/dL [facility] Potassium molar conc 3.4 mmol/L Low [facility] Sodium molar conc 138 mmol/L [facility] Urea nitrogen mass conc 15 mg/dL [facility] CBC, EDIF, PLATELETon 2018 ABSOLUTE BASOPHIL COUNT 0.1 X10 [facility] Basophils/100 WBC (Bld) 1.0 % 0 - 2 % [facility] Differential cell count method Nom (Bld) AUTO DIFF % [facility] Eosinophils #/vol (Bld) 0.00 10*3/uL X10 [facility] Eosinophils/100 WBC (Bld) 0.0 % 0 - 11 % [facility] Erythrocyte distribution width Ratio (RBC) 18.3 % High 11.5 - 14.5 % [facility] Hematocrit Volume Fraction (Bld) 29.0 % Low 36 - 48 % [facility] Hemoglobin mass conc (Bld) 9.5 g/dL Low [facility] Lymphocytes #/vol (Bld) 0.60 10*3/uL X10 [facility] Lymphocytes/100 WBC (Bld) 4.8 % Low 20 - 55 % [facility] MCH Entitic mass (RBC) 28.2 pg 26 - 35 PG [facility] MCHC mass conc (RBC) 32.7 g/dL [facility] MCV Entitic volume (RBC) 86.1 fL [facility] Monocytes #/vol (Bld) 0.5 10*3/uL X10 [facility] Monocytes/100 WBC (Bld) 3.8 % 0 - 10 % [facility] Neutrophils #/vol (Bld) 11.6 10*3/uL High [facility] Neutrophils/100 WBC (Bld) 90.4 % High 37 - 75 % [facility] Platelet mean volume Entitic volume (Bld) 7.9 fL [facility] Platelets #/vol (Bld) 404 10*3/uL High [facility] RBC #/vol (Bld) 3.37 10*6/uL Low [facility] WBC #/vol (Bld) 12.8 10*3/uL High [facility] Otheron 12-15-2018 Interpretation and review of laboratory results Abnormal [facility] PROTIME-INRon 12-15-2018 INR Coag RelTime (PPP) 1.18 {INR} High [facility] Comment on above: 2.0-3.0 THERAPEUTIC RANGE 2.5-3.5 PROSTHETIC VALVE RANGE Prothrombin time (PT) Coag time (PPP) 14.9 s High [facility] RENAL FUNCTION PANELon 12-15 Albumin mass conc 2.0 G/dl Low 3.5 - 5 G/dl [facility] Calcium mass conc 7.6 mg/dL Low [facility] Chloride molar conc 107 mmol/L [facility] CO2 molar conc 21 mmol/L Low [facility] Creatinine mass conc 0.7 mg/dL [facility] GFR/1.73 sq M predicted among blacks MDRD vol rate/area (S/P/Bld) mL/min/{1.73_m2} ml/min/1.7 3sq.m [facility] GFR/1.73 sq M predicted among non-blacks MDRD vol rate/area (S/P/Bld) Average GFR for 60-69 years old = 85. [facility] Comment on above: Chronic Kidney disea se, GFR = <60. Kidney failure, GFR = <15. The GFR estimate is not adjusted for extreme body surface area or acute process, nor has it been validated for women or ethnic groups other than and . GFR/1.73 sq M predicted among non-blacks MDRD vol rate/area (S/P/Bld) mL/min/{1.73_m2} ml/min/1.7 3sq.m [facility] Glucose fasting mass conc 110 mg/dL High [facility] Comment on above: NORMAL <100 mg/dL PREDIABETES 101-126 mg/dL DIABETES 126 mg/dL or higher Phosphate mass conc 4.2 mg/dL [facility] Potassium molar conc 4.4 mmol/L [facility] Sodium molar conc 136 mmol/L [facility] Urea nitrogen mass conc 11 mg/dL [facility] B-TYPE NATRIURETIC PEPTIDE ( BRAIN)on 12-14-2018 Natriuretic peptide B mass conc (Bld) 58 pg/mL 0 - 100 pg/mL [facility] CBC, EDIF, PLATELETon 2018 ABSOLUTE BASOPHIL COUNT 0.1 X10 [facility] Basophils/100 WBC (Bld) 0.9 % 0 - 2 % [facility] Differential cell count method Nom (Bld) AUTO DIFF % [facility] Eosinophils #/vol (Bld) 0.20 10*3/uL X10 [facility] Eosinophils/100 WBC (Bld) 2.2 % 0 - 11 % [facility] Erythrocyte distribution width Ratio (RBC) 17.7 % High 11.5 - 14.5 % [facility] Hematocrit Volume Fraction (Bld) 32.0 % Low 36 - 48 % [facility] Hemoglobin mass conc (Bld) 10.7 g/dL Low [facility] Lymphocytes #/vol (Bld) 1.20 10*3/uL X10 [facility] Lymphocytes/100 WBC (Bld) 14.3 % Low 20 - 55 % [facility] MCH Entitic mass (RBC) 28.2 pg 26 - 35 PG [facility] MCHC mass conc (RBC) 33.3 g/dL [facility] MCV Entitic volume (RBC) 84.7 fL [facility] Monocytes #/vol (Bld) 0.7 10*3/uL X10 [facility] Monocytes/100 WBC (Bld) 7.9 % 0 - 10 % [facility] Neutrophils #/vol (Bld) 6.2 10*3/uL [facility] Neutrophils/100 WBC (Bld) 74.7 % 37 - 75 % [facility] Platelet mean volume Entitic volume (Bld) 8.1 fL [facility] Platelets #/vol (Bld) 374 10*3/uL [facility] RBC #/vol (Bld) 3.78 10*6/uL Low [facility] WBC #/vol (Bld) 8.3 10*3/uL [facility] Otheron 12-14-2018 Interpretation and review of laboratory results Abnormal [facility] PROTIME-INRon 12-14-2018 INR Coag RelTime (PPP) 1.09 {INR} [facility] Comment on above: 2.0-3.0 THERAPEUTIC RANGE 2.5-3.5 PROSTHETIC VALVE RANGE Prothrombin time (PT) Coag time (PPP) 14.0 s [facility] RENAL FUNCTION PANELon 12-14 Albumin mass conc 2.2 G/dl Low 3.5 - 5 G/dl [facility] Calcium mass conc 8.1 mg/dL Low [facility] Chloride molar conc 104 mmol/L [facility] CO2 molar conc 25 mmol/L [facility] Creatinine mass conc 0.6 mg/dL [facility] GFR/1.73 sq M predicted among blacks MDRD vol rate/area (S/P/Bld) mL/min/{1.73_m2} ml/min/1.7 3sq.m [employer] [facility] GFR/1.73 sq M predicted among non-blacks MDRD vol rate/area (S/P/Bld) Average GFR for 60-69 years old = 85. [facility] Comment on above: Chronic Kidney disea se, GFR = <60. Kidney failure, GFR = <15. The GFR estimate is not adjusted for extreme body surface area or acute process, nor has it been validated for women or ethnic groups other than and . GFR/1.73 sq M predicted among non-blacks MDRD vol rate/area (S/P/Bld) mL/min/{1.73_m2} ml/min/1.7 3sq.m [facility] Glucose fasting mass conc 94 mg/dL [facility] Comment on above: NORMAL <100 mg/dL PREDIABETES 101-126 mg/dL DIABETES 126 mg/dL or higher Phosphate mass conc 4.1 mg/dL [facility] Potassium molar conc 3.1 mmol/L Low [employer] [facility] Sodium molar conc 139 mmol/L [employer] [facility] Urea nitrogen mass conc 7 mg/dL [facility] REPEAT ABO/RH (D) TYPINGon 0 12-14-2018 ABO and Rh group Nom (Bld ) Negative [facility] XR KNEE RIGHT 2 VIEWSon 11-30 XR [...] gas is present consistent with recent surgery. [facility] User, Interfaces - 12/14/2018 6:41 PM EST [...] of hardware complications or acute osseous abnormality. [facility] IMPRESSION: Revised total right knee arthroplasty without radiographic signs of hardware complications or acute osseous abnormality. [facility] XR SPINE CERVICAL WITH OBL A ND [...] left bony neural foraminal narrowing at C4-C5. [facility] IMPRESSION: No acute abnormality in the cervical spine. No abnormal motion noted during flexion and extension. 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 [facility] XR SPINE CERVICAL WI TH OBL AND [...] portions of the upper thorax are unremarkable. [facility] SCREEN: MRSA ONLY, NARES (IS OLATION SCREEN)on 12-13-2018 MRSA isol Org specific cx Ql (Nose) Negative [facility] STAPHYOCOCCUS AUREUS BY PCR Negative [facility] Comment on above: TESTING PERFORMED BY PCR Vital Signs Date Time Vital Sign Value Performing Clinician Facility 05-13-2025 13:15-0400 Body temperature 97.3 [degF] Dr. Galindo Gutierrez MD Work Phone: [facility] 05-13-2025 13:15-0400 Diastolic blood pressure 67 mm[Hg] Dr. Galindo Gutierrez MD Work Phone: [facility] 05-13-2025 13:15-0400 Heart rate 84 /min Dr. Galindo Gutierrez MD Work Phone: [facility] 05-13-2025 13:15-0400 Respiratory rate 24 /min Dr. Galindo Gutierrez MD Work Phone: [facility] 05-13-2025 13:15-0400 SaO2% (BldA) [Mass fraction] 90 % Dr. Galindo Gutierrez MD Work Phone: [facility] 05-13-2025 13:15-0400 Systolic blood pressure 122 mm[Hg] Dr. Galindo Gutierrez MD Work Phone: [facility] 05-13-2025 13:00-0400 Inhaled oxygen flow rate 2 L/min Dr. Galindo Gutierrez MD Work Phone: [facility] 05-13-2025 11:08-0400 Body height 162.[address] Galindo Gutierrez MD Work Phone: [facility] 05-13-2025 11:08-0400 Body mass index (BMI) [Ratio] 33.7 kg/m2 Dr. Galindo Gutierrez MD Work Phone: [facility] 05-13-2025 11:08-0400 Body weight [address] Galindo Gutierrez MD Work Phone: [facility] 08-20-2024 14:01-0400 Body height 162.6 cm Aubree Ireland MD Work Phone: [facility] 08-20-2024 14:01-0400 Diastolic blood pressure 78 mm[Hg] Aubree Ireland MD Work Phone: [facility] 08-20-2024 14:01-0400 Heart rate 84 /min Aubree Ireland MD Work Phone: [facility] 08-20-2024 14:01-0400 SaO2% (BldA) [Mass fraction] 97 % Aubree Ireland MD Work Phone: [facility] 08-20-2024 14:01-0400 Systolic blood pressure 132 mm[Hg] Aubree Ireland MD Work Phone: [facility] 09-23-2023 16:28-0500 SaO2% (BldA) [Mass fraction] 94 % TULIO ANTUNEZ MD~[id number] [facility] Comment on above: Performed By: #### [id number] #### [facility] [address] [place], [place] [address] Director Of Employee Development - [employer] [id number] Performed for [facility] [address] [place], [place] [address] 12-22-2021 10:37-0500 Body height 165.1 cm Fél[employer] IT ADMINISTRATOR-SURGICAL CONSULTANT Work Phone: [facility] 12-22-2021 10:37-0500 Body mass index (BMI) [Ratio] 32.78 kg/m2 [employer] IT ADMINISTRATOR-SURGICAL CONSULTANT Work Phone: [employer] 12-22-2021 10:37-0500 Body temperature 96.6 [degF] [employer] IT ADMINISTRATOR-SURGICAL CONSULTANT Work Phone: [employer] 12-22-2021 10:37-0500 Body weight 89.36 kg [employer] IT ADMINISTRATOR-SURGICAL CONSULTANT Work Phone: [facility] 04-08-2020 10:24-0400 BMI (Body Mass Index) 31.38 kg/m2 [facility] 04-08-2020 10:24-0400 Body Temperature 98.4 [degF] [facility] 04-08-2020 10:24-0400 Body weight 85.55 kg [facility] 04-08-2020 10:24-0400 BP Diastolic 64 mm[Hg] [facility] 04-08-2020 10:24-0400 BP Systolic 118 mm[Hg] [facility] 04-08-2020 10:24-0400 Height 165.1 cm [facility] 04-08-2020 10:24-0400 Pulse (Heart Rate) 70 /min [facility] 04-08-2020 10:24-0400 Pulse Oximetry 97 % [facility] 12-25-2019 10:11-0500 BMI (Body Mass Index) 29.54 kg/m2 [facility] 12-25-2019 10:11-0500 Body Temperature 98.8 [degF] [facility] 12-25-2019 10:11-0500 Body weight 83.01 kg [facility] 12-25-2019 10:11-0500 Height 167.6 cm [facility] 12-04-2019 11:05-0500 BMI (Body Mass Index) 30.45 kg/m2 [facility] 12-04-2019 11:05-0500 Body Temperature 98.1 [degF] [facility] 12-04-2019 11:05-0500 Body weight 83.01 kg [facility] 12-04-2019 11:05-0500 BP Diastolic 60 mm[Hg] [facility] 12-04-2019 11:05-0500 BP Systolic 92 mm[Hg] [facility] 12-04-2019 11:05-0500 Pulse (Heart Rate) 88 /min [facility] 12-04-2019 11:05-0500 Pulse Oximetry 98 % [facility] 12-04-2019 11:05-0500 Respiratory Rate 14 /min [facility] 08-14-2019 11:29-0400 BMI (Body Mass Index) 31.28 kg/m2 [facility] 08-14-2019 11:29-0400 Body Temperature 97.7 [degF] [facility] 08-14-2019 11:29-0400 Body weight 85.28 kg [facility] 08-14-2019 11:29-0400 BP Diastolic 60 mm[Hg] [facility] 08-14-2019 11:29-0400 BP Systolic 108 mm[Hg] [facility] 08-14-2019 11:29-0400 Pulse (Heart Rate) 64 /min [facility] 08-14-2019 11:29-0400 Pulse Oximetry 99 % [facility] 08-14-2019 11:29-0400 Respiratory Rate 14 /min [facility] 05-15-2019 11:44-0400 BMI (Body Mass Index) 30.45 kg/m2 [facility] 05-15-2019 11:44-0400 Body weight 83.01 kg [facility] 05-15-2019 11:44-0400 BP Diastolic 62 mm[Hg] [facility] 05-15-2019 11:44-0400 BP Systolic 94 mm[Hg] [facility] 05-15-2019 11:44-0400 Pulse (Heart Rate) 68 /min [facility] 05-15-2019 11:44-0400 Pulse Oximetry 99 % [facility] 05-15-2019 11:44-0400 Respiratory Rate 12 /min [facility] 04-18-2019 10:52-0400 BMI (Body Mass Index) 30.62 kg/m2 [facility] 04-18-2019 10:52-0400 Body Temperature 97.3 [degF] [facility] 04-18-2019 10:52-0400 Height 165.1 cm [facility] 04-18-2019 10:52-0400 Weight 83.46 kg [facility] 04-03-2019 10:55-0400 BMI (Body Mass Index) 30.02 kg/m2 [facility] 04-03-2019 10:55-0400 Body Temperature 97.81 [degF] [facility] 04-03-2019 10:55-0400 Body weight 84.37 kg [facility] 04-03-2019 10:55-0400 BP Diastolic 66 mm[Hg] [facility] 04-03-2019 10:55-0400 BP Systolic 118 mm[Hg] [facility] 04-03-2019 10:55-0400 Pulse (Heart Rate) 78 /min [facility] 04-03-2019 10:55-0400 Pulse Oximetry 98 % [facility] 04-03-2019 10:55-0400 Respiratory Rate 14 /min [facility] 01-30-2019 10:09-0400 BMI (Body Mass Index) 30.02 kg/m2 [facility] 01-30-2019 10:09-0400 Body Temperature 97.7 [degF] [facility] 01-30-2019 10:09-0400 Pulse (Heart Rate) 58 /min [facility] 01-30-2019 10:09-0400 Pulse Oximetry 98 % [facility] 01-30-2019 10:09-0400 Respiratory Rate 14 /min [facility] 01-30-2019 10:09-0400 Weight 84.37 kg [facility] 01-16-2019 14:33-0400 BMI (Body Mass Index) 30.02 kg/m2 [facility] 01-16-2019 14:33-0400 Body Temperature 98.6 [degF] [facility] 01-16-2019 14:33-0400 BP Diastolic 62 mm[Hg] [facility] 01-16-2019 14:33-0400 BP Systolic 100 mm[Hg] [facility] 01-16-2019 14:33-0400 Pulse (Heart Rate) 90 /min [facility] 01-16-2019 14:33-0400 Pulse Oximetry 97 % [facility] 01-16-2019 14:33-0400 Respiratory Rate 12 /min [facility] 01-16-2019 14:33-0400 Weight 84.37 kg [facility] 01-16-2019 11:55-0400 BMI (Body Mass Index) 30.51 kg/m2 [facility] 01-16-2019 11:55-0400 Body Temperature 97.39 [degF] [facility] 01-16-2019 11:55-0400 Height 167.6 cm [facility] 01-16-2019 11:55-0400 Weight 85.73 kg [facility] 12-27-2018 14:39-0500 BMI (Body Mass Index) 30.51 kg/m2 [facility] 12-27-2018 14:39-0500 Body Temperature 97.11 [degF] [facility] 12-27-2018 14:39-0500 Height 167.6 cm [facility] 12-27-2018 14:39-0500 Weight 85.73 kg [facility] 12-26-2018 14:50-0500 BMI (Body Mass Index) 30.51 kg/m2 [facility] 12-26-2018 14:50-0500 Body Temperature 98.8 [degF] [facility] 12-26-2018 14:50-0500 Body weight 85.73 kg [facility] Comment on above: stated from Hospital 12-26-2018 14:50-0500 BP Diastolic 54 mm[Hg] [facility] 12-26-2018 14:50-0500 BP Systolic 96 mm[Hg] [facility] 12-26-2018 14:50-0500 Height 167.6 cm [facility] 12-26-2018 14:50-0500 Pulse (Heart Rate) 108 /min [facility] 12-26-2018 14:50-0500 Pulse Oximetry 98 % [facility] 12-26-2018 14:50-0500 Respiratory Rate 14 /min [facility] 12-17-2018 16:17-0500 Body Temperature 98.01 [degF] [facility] 12-17-2018 16:17-0500 BP Diastolic 61 mm[Hg] [facility] 12-17-2018 16:17-0500 BP Systolic 126 mm[Hg] [facility] 12-17-2018 16:17-0500 Pulse (Heart Rate) 55 /min [facility] 12-17-2018 16:17-0500 Pulse Oximetry 99 % [facility] 12-17-2018 16:17-0500 Respiratory Rate 14 /min [facility] 12-13-2018 18:00-0500 BMI (Body Mass Index) 30.51 kg/m2 [facility] 12-13-2018 18:00-0500 Height 167.6 cm [facility] 12-13-2018 18:00-0500 Weight 85.73 kg [facility] Encounters Encounter Date Encounter Type Care Provider Facility Start: 05-27-2025 End: 05-27-2025 Patient encounter procedure Allyson SOW -[facility] Work Phone: Start: 05-27-2025 End: 05-27-[address] Galindo Gutierrez MD Work Phone: -[facility] Start: 05-13-2025 ambulatory Galindo Gutierrez Facility:[facility] Start: 05-13-2025 Non-patient / Non-visit [facility] -[facility] Start: 05-13-2025 End: 05-13-2025 Admission to same day surgery [facility] DO -Endoscopy Work Phone: Start: 05-13-2025 End: 05-13-[address] Galindo Gutierrez MD Work Phone: -Endoscopy Start: 04-04-2025 Non-patient / Non-visit Dr. Freedom Collier MD -[facility] Start: 04-04-2025 End: 04-04-[address] Galindo Gutierrez MD Work Phone: [facility] Work Phone: Start: 04-04-2025 End: 04-04-[address] Galindo Gutierrez MD -Cardiovascular Services Work Phone: Start: 04-04-2025 End: 04-04-2025 ambulatory Galindo Gutierrez Facility:[facility] Start: 03-20-2025 End: 03-20-[address] Galindo Gutierrez MD Work Phone: [facility] Work Phone: Start: 03-20-2025 End: 03-20-2025 Patient encounter procedure Allyson SOW -Nuclear Medicine [facility] Work Phone: Start: 03-20-2025 End: 03-20-2025 ambulatory Allyson Barkley Facility:[facility] Start: 03-18-2025 End: 03-18-2025 Patient encounter procedure Allyson SOW -[facility] Work Phone: Start: 03-18-2025 End: 03-18-[address] Galindo Gutierrez MD Work Phone: [facility] Work Phone: Start: 03-17-2025 End: 03-17-2025 ambulatory [facility] Start: 03-04-2025 End: 03-04-[address] Galindo Gutierrez MD Work Phone: [facility] Work Phone: Start: 03-04-2025 End: 03-04-2025 Patient encounter procedure Allyson Barkley DATE [facility] -Laboratory Work Phone: Start: 03-04-2025 End: 03-04-2025 Patient encounter procedure Allyson Barkley DATE [facility] -[facility] Work Phone: Start: 03-04-2025 End: 03-04-2025 ambulatory Allyson Filippo Facility:[facility] Start: 03-04-2025 End: 03-04-2025 ambulatory Allyson Barkley Facility:[facility] Start: 11-14-2024 End: 11-14-2024 Admission to same day surgery center Billie Senthil COFFEY Work Phone: [facility] Comment on above: Liver lesion (Primar y Dx); Bilious vomiting with nausea; Gastric perforation (HCC) Start: 11-14-2024 End: 11-14-2024 Telemedicine consultation with patient Billie Joseph ERLINDA Work Phone: [facility] Start: 11-14-2024 End: 11-14-2024 ambulatory GALINDO GUTIERREZ Facility:[facility] Start: 11-04-2024 End: 11-04-2024 Subsequent hospital visit by physician Pinky [facility] (I-Stat) Work Phone: Cat Scan Comment on above: Liver lesion [K76.9] Start: 11-04-2024 End: 11-04-2024 ambulatory AUBREE IRELAND Facility:[facility] Start: 10-29-2024 End: 10-29-2024 Orders Only Aubree Ireland MD Work Phone: [facility] Comment on above: Liver lesion (Primar y Dx) Start: 08-20-2024 End: 08-20-2024 Office outpatient visit 25 minutes Aubree Ireland MD Work Phone: [facility] Comment on above: Liver lesion (Primar y Dx); Diarrhea of presumed infectious origin Start: 08-20-2024 End: 08-20-2024 ambulatory AUBREE IRELAND Facility:[facility] Start: 08-13-2024 End: 08-13-2024 ambulatory AUBREE IRELAND Facility:[facility] Start: 08-13-2024 End: 08-13-2024 Subsequent hospital visit by physician [facility] (I-Stat) Work Phone: Cat Scan Comment on above: Acute pancreatitis, unspecified complication status, unspecified pancreatitis type [K85.90] Start: 08-01-2024 End: 08-01-2024 Orders Only Aubree Ireland MD Work Phone: [place] [facility] Comment on above: Acute pancreatitis, unspecified complication status, unspecified pancreatitis type (Primary Dx) Start: 07-31-2024 End: 07-31-2024 Evaluation and management of inpatient YAYA MITCHELL CERVANTESMAN Facility:[facility] Start: 07-28-2024 Evaluation and management of inpatient Steven GALINDO MIREILLE Facility:[facility] Start: 07-28-2024 End: 07-28-2024 Emergency department patient visit Toribio Genaogreer Facility:[facility] Start: 07-09-2024 End: 07-09-2024 ambulatory [facility] Start: 07-02-2024 End: 07-02-2024 ambulatory [facility] Start: 05-26-2024 End: 05-26-2024 Emergency department patient visit BA LOVE [facility] Start: 09-23-2023 End: 09-25-2023 Evaluation and management of inpatient TULIO ANTUNEZ MD~[id number] Facility:[facility] Start: 12-21-2022 ambulatory GALINDO ZEPEDA [facility] Start: 12-22-2021 End: 12-22-2021 Office outpatient visit 15 minutes Galindo Zepeda MD Work Phone: [facility] Comment on above: Hx of total knee art hroplasty, right (Primary Dx) Start: 12-22-2021 End: 12-22-2021 Subsequent hospital visit by physician Félix Moulton IT ADMINISTRATOR-SURGICAL CONSULTANT Work Phone: [facility] Start: 12-24-2020 End: 12-24-2020 Subsequent hospital visit by physician Félix Moulton Work Phone: [facility] Start: 04-08-2020 End: 04-08-2020 Office outpatient visit 15 minutes Maximiliano A Ezike Work Phone: [facility] Infectious Disease Comment on above: Joint infection (Mica jose e Dx) Start: 12-25-2019 End: 12-25-2019 Office outpatient visit 15 minutes Félix Moulton Work Phone: [facility] Comment on above: History of total kne e arthroplasty, right (Primary Dx) Start: 12-25-2019 End: 12-25-2019 Subsequent hospital visit by physician Félix Moulton Work Phone: [facility] Start: 12-04-2019 End: 12-04-2019 Office outpatient visit 15 minutes Maximiliano A Ezike Work Phone: [facility] Disease Comment on above: Cellulitis of skin w ith lymphangitis (Primary Dx); Joint infection Start: 08-14-2019 End: 08-14-2019 Office outpatient visit 15 minutes Maximiliano A Ezike Work Phone: [facility] Comment on above: Joint infection (Mica jose e Dx) Start: 05-15-2019 End: 05-15-2019 Office outpatient visit 15 minutes Maximiliano A Ezike Work Phone: [facility] Disease Comment on above: Cellulitis of skin w ith lymphangitis (Primary Dx); Joint infection Start: 04-18-2019 End: 04-18-2019 Office outpatient visit 15 minutes Galindo Zepeda Work Phone: [facility] Comment on above: 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) Start: 04-18-2019 End: 04-18-2019 Subsequent hospital visit by physician Galindo Zepeda Work Phone: [facility] Start: 04-03-2019 End: 04-03-2019 Office outpatient visit 15 minutes Getting-in Work Phone: [facility] Infect[facility] Disease Comment on above: Cellulitis of skin w ith lymphangitis (Primary Dx) Start: 02-11-2019 End: 02-11-2019 Patient encounter procedure Historical Provider [facility] Start: 02-07-2019 End: 02-07-2019 Telephone encounter Getting-in Work Phone: [facility] Infect[facility] Disease Comment on above: Medication Reaction Start: 01-30-2019 End: 01-30-2019 Patient encounter procedure Historical Provider [facility] Start: 01-30-2019 End: 01-30-2019 Office outpatient visit 25 minutes Getting-in Work Phone: [facility] Comment on above: Cellulitis of right lower extremity (Primary Dx) Start: 01-21-2019 End: 01-21-2019 Telephone encounter Getting-in Work Phone: [facility] Infect[facility] Disease Comment on above: Order Request Start: 01-16-2019 End: 01-16-2019 Office outpatient visit 15 minutes Getting-in Work Phone: [facility] Infect[facility] Disease Comment on above: Joint infection (Mica jose e Dx) Start: 01-16-2019 End: 01-16-2019 Postop follow up visit related to original px Félix Moulton Work Phone: [facility] Comment on above: 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) Start: 01-02-2019 End: 01-02-2019 Patient encounter procedure Historical Provider [facility] Start: 12-27-2018 End: 12-27-2018 Postop follow up visit related to original px Félix Moulton Work Phone: [facility] Comment on above: 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) Start: 12-27-2018 End: 12-27-2018 Patient encounter procedure Félix Moulton Work Phone: [facility] Start: 12-26-2018 End: 12-26-2018 Office outpatient visit 25 minutes Maximiliano Mayo Work Phone: [facility] Infectious Disease Comment on above: Cellulitis of right lower extremity (Primary Dx); Joint infection Start: 12-24-2018 End: 12-24-2018 Patient encounter procedure Jordy Reneerakaniwona [facility] Comment on above: 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, initial encounter (Primary Dx) Start: 12-24-2018 End: 12-24-2018 Telephone encounter Patsy Rl [facility] Infectious Disease Comment on above: Referral (trying to determine if patient is a new referral.) Start: 12-19-2018 End: 12-19-2018 Patient encounter procedure Félix Moulton Work Phone: [facility] Comment on above: Acute postoperative pain of right knee Start: 12-14-2018 Notes/Results Only Galindo cota Work Phone: [facility] Start: 12-14-2018 End: 12-14-2018 Patient encounter procedure Galindo Zepeda Work Phone: [facility] Comment on above: 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 j oint, initial encounter (Primary Dx) Start: 12-13-2018 End: 12-17-2018 Evaluation and management of inpatient Darren Seifu Work Phone: [facility] Med Surg Comment on above: Cellulitis Procedures Date Procedure Procedure Detail Performing Clinician Start: 05-13-[address] Galindo ochoa MD Work Phone: Start: 03-20-2025 [address] emptying study Dr. Galindo Gutierrez MD Work Phone: Start: 07-28-2024 Antibody screen AUBREE IRELAND Comment on above: Order Comment: Specimen Type: BLOOD SPEC IMEN Ordering Facility: [facility] Address: [address] [place] [address] Performed By: #### T SCR #### [facility] CLIA [id number] [address] [place] Start: 01-23-2019 LABS [...] Author Start: 08-01-2027 Diabetes Screening Diabetes Screening [facility] Start: 05-13-2025 Endoscopy upper small intestine w/biopsy SMALL BOWEL ENDOSCOPY/BIOPSY [facility] Start: 05-13-[address] [facility] Start: 11-14-2024 End: 11-14-2024 Admission to same day surgery center 11/14/2024 2:00 PM EST [facility] [address] [facility] 3rd Floor [place] [id number] Billie Joseph PA-C [address] [place] [address] F/U CT (11/04) [facility] Comment on above: F/U CT (11/04) Start: 11-04-2024 End: 11-04-2024 Patient encounter procedure 11/04/2024 3:00 PM EST Appointment Cat Scan [address] [place] [address] Liver lesion [K76.9] Cat Scan Comment on above: Liver lesion [K76.9] Start: 10-30-2024 Advance Directive Discussion Advance Directive Discussion [facility] Start: 10-29-2024 End: 01-28-2025 CREATININE BLD CREATININE BLD Lab Routine Liver lesion Expected: 10/29/2024, Expires: 01/28/2025 [facility] Work Phone: Comment on above: Expected: 10/29/2024, Expires: Start: 08-20-2024 End: 08-20-2024 Patient encounter procedure [facility] Comment on above: F/U CT, hospital F/U CT (08/13), hosp ital Start: 08-13-2024 End: 08-13-2024 Patient encounter procedure 08/13/2024 3:00 PM EDT Appointment Cat Scan [address] [place] [address] Acute pancreatitis, unspecified complication status, unspecified pancreatitis type [K85.90] Cat Scan Comment on above: Acute pancreatitis, unspecified complica tion status, unspecified pancreatitis type [K85.90] Start: 06-30-2024 Influenza vaccination Influenza Vaccine (#1) [facility] Start: 10-30-2023 Advance Directive Discussion Advance Directive Discussion [facility] Start: 12-21-2022 End: 12-21-2022 Patient encounter procedure 12/21/2022 Office Visit Orthopaedics Galindo Zepeda MD [address] [place] [address] [facility] Start: 12-22-2021 End: 12-22-2021 Office Visit 12/22/2021 Office Visit Orthopaedics Félix Moulton APRN-CNP [address] [place] [address] [phone] [facility] Start: 02-27-2021 Covid-19 Vaccine (3 - Moderna risk series) Covid-19 Vaccine (3 - Moderna risk series) [facility] Start: 12-24-2020 End: 12-24-2020 Office Visit 12/24/2020 Office Visit Orthopaedics Félix Moulton, IT ADMINISTRATOR-SURGICAL CONSULTANT [address] [place] [address] [facility] Start: 06-30-2020 Influenza vaccination INFLUENZA VACCINE (#1) [facility] Start: 2020 Pneumococcal vaccination PNEUMOCOCCAL VACCINE SERIES (1 of 2 - PCV13) [facility] Start: 2020 Screening for osteoporosis Bone Density Screening [facility] Start: 04-08-2020 End: 04-08-2020 Office Visit 04/08/2020 Office Visit Infectious Diseases Maximiliano Mayo MD [address] [place] [address] [phone] [facility] Start: 12-25-2019 End: 12-25-2019 Office Visit 12/25/2019 Office Visit Orthopaedics Félix Moulton, IT ADMINISTRATOR-SURGICAL CONSULTANT [address] [place] [address] [phone] [facility] Start: 12-04-2019 End: 12-04-2020 Basic metabolic 2000 panel BASIC METABOLIC PANEL Lab Routine Cellulitis of skin with lymphangitis Expected: 12/04/2019, Expires: 12/04/2020 [facility] Comment on above: Expected: 12/04/2019, Expires: Start: 12-04-2019 End: 12-04-2020 CBC, EDIF, PLATELET CBC, EDIF, PLATELET Lab Routine Cellulitis of skin with lymphangitis Expected: 12/04/2019, Expires: 12/04/2020 [facility] Comment on above: Expected: 12/04/2019, Expires: Start: 12-04-2019 End: 12-04-2020 CRP [Mass/Vol] C REACTIVE PROTEIN Lab Routine Cellulitis of skin with lymphangitis Expected: 12/04/2019, Expires: 12/04/2020 [facility] Comment on above: Expected: 12/04/2019, Expires: Start: 12-04-2019 End: 12-04-2020 SEDIMENTATION RATE, AUTOMATED SEDIMENTATION RATE, AUTOMATED Lab Routine Cellulitis of skin with lymphangitis Expected: 12/04/2019, Expires: 12/04/2020 [employer] Comment on above: Expected: 12/04/2019, Expires: 1 Start: 12-04-2019 End: 12-04-2019 Office Visit 12/04/2019 Office Visit Infectious Diseases Maximiliano Mayo MD [address] [place] [address] [phone] [facility] Start: 08-14-2019 End: 08-14-2020 Basic metabolic 2000 panel BASIC METABOLIC PANEL Lab Routine Joint infection Expected: 08/14/2019, Expires: 08/14/2020 [facility] Comment on above: Expected: 08/14/2019, Expires: 0 Start: 08-14-2019 End: 08-14-2020 CBC, EDIF, PLATELET CBC, EDIF, PLATELET Lab Routine Joint infection Expected: 08/14/2019, Expires: 08/14/2020 [facility] Comment on above: Expected: 08/14/2019, Expires: 0 Start: 08-14-2019 End: 08-14-2020 CRP [Mass/Vol] C REACTIVE PROTEIN Lab Routine Joint infection Expected: 08/14/2019, Expires: 08/14/2020 [facility] Comment on above: Expected: 08/14/2019, Expires: 0 Start: 08-14-2019 End: 08-14-2020 SEDIMENTATION RATE, AUTOMATED SEDIMENTATION RATE, AUTOMATED Lab Routine Joint infection Expected: 08/14/2019, Expires: 08/14/2020 [facility] Comment on above: Expected: 08/14/2019, Expires: 0 Start: 08-14-2019 End: 08-14-2019 Office Visit 08/14/2019 Office Visit Infectious Diseases Maximiliano Mayo MD [address] [place] [address] [phone] [facility] Start: 06-30-2019 Influenza vaccination INFLUENZA VACCINE (#1) [facility] Start: 05-15-2019 End: 05-15-2020 Basic metabolic 2000 panel BASIC METABOLIC PANEL Lab Routine Cellulitis of skin with lymphangitis Joint infection Expected: 05/15/2019, Expires: 05/15/2020 [facility] Comment on above: Expected: 05/15/2019, Expires: 0 Start: 05-15-2019 End: 05-15-2020 CBC, EDIF, PLATELET CBC, EDIF, PLATELET Lab Routine Cellulitis of skin with lymphangitis Joint infection Expected: 05/15/2019, Expires: 05/15/2020 [facility] Comment on above: Expected: 05/15/2019, Expires: 0 Start: 05-15-2019 End: 05-15-2020 CRP [Mass/Vol] C REACTIVE PROTEIN Lab Routine Cellulitis of skin with lymphangitis Joint infection Expected: 05/15/2019, Expires: 05/15/2020 [facility] Comment on above: Expected: 05/15/2019, Expires: 0 Start: 05-15-2019 End: 05-15-2020 SEDIMENTATION RATE, AUTOMATED SEDIMENTATION RATE, AUTOMATED Lab Routine Cellulitis of skin with lymphangitis Joint infection Expected: 05/15/2019, Expires: 05/15/2020 [facility] Comment on above: Expected: 05/15/2019, Expires: 0 Start: 05-15-2019 End: 05-15-2019 Office Visit 05/15/2019 Office Visit Infectious Diseases Maximiliano Mayo MD [address] [place] [address] [phone] [facility] Start: 04-18-2019 End: 04-18-2019 Office Visit 04/18/2019 Office Visit Orthopaedics Galindo Zepeda MD [address] [place] [address] [phone] [facility] Start: 04-03-2019 End: 04-03-2020 Basic metabolic 2000 panel BASIC METABOLIC PANEL Lab Routine Cellulitis of skin with lymphangitis Expected: 04/03/2019, Expires: 04/03/2020 [facility] Comment on above: Expected: 04/03/2019, Expires: 0 Start: 04-03-2019 End: 04-03-2020 CBC, EDIF, PLATELET CBC, EDIF, PLATELET Lab Routine Cellulitis of skin with lymphangitis Expected: 04/03/2019, Expires: 04/03/2020 [facility] Comment on above: Expected: 04/03/2019, Expires: 0 Start: 04-03-2019 End: 04-03-2020 CRP [Mass/Vol] C REACTIVE PROTEIN Lab Routine Cellulitis of skin with lymphangitis Expected: 04/03/2019, Expires: 04/03/2020 [facility] Comment on above: Expected: 04/03/2019, Expires: 0 Start: 04-03-2019 End: 04-03-2020 SEDIMENTATION RATE, AUTOMATED SEDIMENTATION RATE, AUTOMATED Lab Routine Cellulitis of skin with lymphangitis Expected: 04/03/2019, Expires: 04/03/2020 [facility] Comment on above: Expected: 04/03/2019, Expires: 0 Start: 03-13-2019 End: 03-13-2019 Office Visit 03/13/2019 Office Visit Infectious Diseases Maximiliano Mayo MD [address] [place] [address] [phone] [facility] Start: 01-30-2019 End: 01-31-2020 Basic metabolic 2000 panel BASIC METABOLIC PANEL Lab Routine Cellulitis of right lower extremity Expected: 01/30/2019, Expires: 01/31/2020 [facility] Comment on above: Expected: 01/30/2019, Expires: 0 Start: 01-30-2019 End: 01-31-2020 CBC, EDIF, PLATELET CBC, EDIF, PLATELET Lab Routine Cellulitis of right lower extremity Expected: 01/30/2019, Expires: 01/31/2020 [facility] Comment on above: Expected: 01/30/2019, Expires: 0 Start: 01-30-2019 End: 01-31-2020 CRP mass conc C REACTIVE PROTEIN Lab Routine Cellulitis of right lower extremity Expected: 01/30/2019, Expires: 01/31/2020 [facility] Comment on above: Expected: 01/30/2019, Expires: 0 Start: 01-30-2019 End: 01-31-2020 SEDIMENTATION RATE, AUTOMATED SEDIMENTATION RATE, AUTOMATED Lab Routine Cellulitis of right lower extremity Expected: 01/30/2019, Expires: 01/31/2020 [facility] Comment on above: Expected: 01/30/2019, Expires: 0 Start: 01-30-2019 End: 01-30-2019 Office Visit 01/30/2019 Office Visit Infectious Diseases Maximiliano Mayo MD [address] [place] [address] [phone] [facility] Start: 01-16-2019 End: 01-16-2019 Office Visit 01/16/2019 Office Visit Infectious Diseases Maximiliano Mayo MD [address] [place] [address] [phone] [facility] Start: 01-16-2019 End: 01-16-2019 Office Visit 01/16/2019 Office Visit Orthopaedics Félix Moulton, IT ADMINISTRATOR-SURGICAL CONSULTANT [address] [place] [address] [phone] [facility] Start: 12-27-2018 End: 12-27-2018 Office Visit [facility] Start: 12-26-2018 End: 12-26-2018 Office Visit 12/26/2018 Office Visit Infectious Diseases Maximiliano Mayo MD [address] [place] [address] [phone] [facility] Start: 12-17-2018 Urine microalbumin profile DTaP,Tdap,Td Vaccine (1 - Tdap) [facility] Start: 12-14-2018 End: 01-11-2019 ACID FAST CULTURE ACID FAST CULTURE Microbiology Routine 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 joint, initial encounter Expected: 12/14/2018, Expires: 01/11/2019 [employer] [facility] Comment on above: Expected: 12/14/2018, Expires: 9 Start: 12-14-2018 End: 01-11-2019 BODY FLUID CULTURE AND DIRECT SMEAR BODY FLUID CULTURE AND DIRECT SMEAR Microbiology Routine 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 joint, initial encounter Expected: 12/14/2018, Expires: 01/11/2019 [facility] Comment on above: Expected: 12/14/2018, Expires: 9 Start: 12-14-2018 End: 01-11-2019 CRYSTALS, FLUID CRYSTALS, FLUID Fluids Routine 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 joint, initial encounter Expected: 12/14/2018, Expires: 01/11/2019 [facility] Comment on above: Expected: 12/14/2018, Expires: 9 Start: 12-14-2018 End: 01-11-2019 FUNGUS CULTURE FUNGUS CULTURE Microbiology Routine 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 joint, initial encounter Expected: 12/14/2018, Expires: 01/11/2019 [facility] Comment on above: Expected: 12/14/2018, Expires: 9 Start: 12-14-2018 End: 01-11-2019 GLUCOSE BODY FLUID GLUCOSE BODY FLUID Fluids Routine 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 joint, initial encounter Expected: 12/14/2018, Expires: 01/11/2019 [facility] Comment on above: Expected: 12/14/2018, Expires: 9 Start: 12-14-2018 End: 01-11-2019 SMEAR, GRAM STAIN SMEAR, GRAM STAIN Microbiology Routine 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 joint, initial encounter Expected: 12/14/2018, Expires: 01/11/2019 [facility] Comment on above: Expected: 12/14/2018, Expires: 9 Start: 12-14-2018 End: 01-11-2019 SYNOVIAL FLUID CELL COUNT SYNOVIAL FLUID CELL COUNT Fluids Routine 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 joint, initial encounter Expected: 12/14/2018, Expires: 01/11/2019 [facility] Comment on above: Expected: 12/14/2018, Expires: 9 Start: 09-28-2018 Pneumococcal Vaccine: 50+ (3 of 3 - PPSV23, PCV20 or PCV21) Pneumococcal Vaccine: 50+ (3 of 3 - PPSV23, PCV20 or PCV21) [facility] Start: 09-28-2018 Pneumococcal Vaccine: 65+ (3 of 3 - PPSV23 or PCV20) Pneumococcal Vaccine: 65+ (3 of 3 - PPSV23 or PCV20) [facility] Start: 2015 RSV Vaccine (1 - Risk 60-74 years 1-dose series) RSV Vaccine (1 - Risk 60-74 years 1-dose series) [facility] Start: 11-05-2013 Screening for malignant neoplasm of breast Mammogram Screening [facility] Start: 03-05-2009 Screening for malignant neoplasm of colon [facility] Start: 2005 Colonoscopy [facility] Start: 2005 Protein mass conc COLON CANCER SCREENING DISCUSSION [facility] Start: 2005 Screening for malignant neoplasm of lung Lung Cancer Screening [facility] Start: 2005 Zoster vaccine hzv live for subcutaneous use ZOSTER (SHINGLES) VACCINE (1 of 2) [facility] Start: 2000 Colonoscopy COLORECTAL CANCER SCREENING DISCUSSION [facility] Start: 2000 Lipid panel Lipid Screening [facility] Start: 2000 Screening for malignant neoplasm of colon [facility] Start: 1995 Fasting lipid profile LIPID SCREENING [facility] Start: 1995 Protein mass conc MAMMOGRAM SCREENING DISCUSSION [facility] Start: 1995 Screening mammography MAMMOGRAM SCREENING DISCUSSION [facility] Start: 1976 Screening for malignant neoplasm of cervix [facility] Start: 1974 Shingrix Vaccine (1 of 2) Shingrix Vaccine (1 of 2) [facility] Start: 1974 Third diphtheria, tetanus and acellular pertussis (DTaP) vaccination TDAP (ADULT) [facility] Start: 1973 Anxiety Screening Anxiety Screening [facility] Start: 1973 Depression Screening Depression Screening [facility] Start: 1973 Hepatitis C screening Hepatitis C Screening [facility] Start: 1973 Tetanus vaccination TETANUS [facility] Start: 1971 COVID-19 VACCINE (1 of 2) COVID-19 VACCINE (1 of 2) [facility] Start: 1968 HIV screening HIV SCREENING DISCUSSION [facility] Start: 1966 Screening for malignant neoplasm of cervix Cervical Cancer Screening [facility] Start: 1961 Pneumococcal vaccination PNEUMOCOCCAL VACCINE SERIES (1 of 2 - PPSV23) [facility] Start: 1960 COVID-19 VACCINE (1) COVID-19 VACCINE (1) [employer] [facility] Start: 1955 Hepatitis C antibody, confirmatory test HEPATITIS C VIRUS SCREENING [facility] Start: 1955 Screening for osteoporosis DEXA SCAN DISCUSSION [facility] Start: 1955 Thyroid stimulating hormone measurement TSH [facility] Start: 1955 Thyrotropin Qn TSH [facility] ACID [facility]ST C[facility] ANAEROBE CULTURE [facility] H BODY FLUID CELL COUNT BODY FLUID CELL COUNT Fluids Routine 12/14/2018 8:30 AM EST [facility] BODY FLUID CULTURE A ND DIRECT SMEAR BODY FLUID CULTURE AND DIRECT SMEAR Microbiology Routine 12/14/2018 8:30 AM [employer] CBC, EDIF, PLATELET CBC, EDIF, P LATELET Lab Routine Every morning Lab until discontinued starting 12/14/2018, 4 completed [employer] [facility] Comment on above: Every morning Lab until discontinued sta rting 12/14/2018, 4 completed Clostridioides diffi cile toxin genes [Presence] in Stool by GUS with probe detection C. DIFFICILE PCR Lab Routine Diarrhea of presumed infectious origin Ordered: 08/20/2024 [facility] Comment on above: Ordered: 08/20/2024 CRYSTALS, FLUID CRYSTALS, FLUID Fluids Routine 12/14/2018 8:30 AM [employer] End: 09-19-2025 CT Liver W contrast IV CT LIVER W IVCON Radiology Routine Liver lesion 1 Occurrences starting 08/20/2024 until 09/19/2025 [facility] Comment on above: 1 Occurrences starting 08/20/2024 until 09/19/2025 CT Liver W contrast IV CT LIVER W IVCON Radiology Routine Liver lesion 11/04/2024 3:22 PM EST [facility] Work Phone: End: 08-31-2025 CT Pancreas W contrast IV CT PANCREAS W IVCON Radiology Routine Acute pancreatitis, unspecified complication status, unspecified pancreatitis type 1 Occurrences starting 08/01/2024 until 08/31/2025 [facility] Work Phone: Comment on above: 1 Occurrences starting 08/01/2024 until 08/31/2025 CT Pancreas W contrast IV CT [place] CREAS W IVCON Radiology Routine Acute pancreatitis, unspecified complication status, unspecified pancreatitis type 08/13/2024 3:40 PM EDT [facility] Work Phone: DIFFERENTIAL, FLUID DIFFERENTIAL , FLUID Fluids Routine 12/14/2018 8:30 AM [employer] FUNGUS CULTURE [facility] GLUCOSE BODY FLUID GLUCOSE BODY FLUID Fluids Routine 12/14/2018 8:30 AM EST [facility] End: 09-19-2025 MR Liver WO and W contrast IV MRI LIVER WO/W IVCON Radiology Routine Liver lesion 1 Occurrences starting 08/20/2024 until 09/19/2025 [facility] Work Phone: Comment on above: 1 Occurrences starting 08/20/2024 until 09/19/2025 Patient referral [facility] Work Phone: End: 12-17-2018 PICC LINE PLACEMENT/REMOVAL PICC LINE PLACEMENT/REMOVAL Procedures Routine One Time for 1 Occurrences starting 12/17/2018 until 12/17/2018 [facility] Comment on above: One Time for 1 Occurrences starting 11/30 until 12/17/2018 PROTIME-INR PROTIME-INR Lab Routine Every morning Lab until discontinued starting 12/15/2018, 3 completed [facility] Comment on above: Every morning Lab until discontinued sta rting 12/15/2018, 3 completed Radiography for bone length studies XR BONE LENGTH STUDY Imaging Routine History of revision of total replacement of right knee joint 04/18/2019 10:40 AM EDT [facility] Radionuclide gastric emptying study [facility] RENAL FUNCTION PANEL RENAL FUNCT ION PANEL Lab Routine Every morning Lab until discontinued starting 12/14/2018, 4 completed [facility] Comment on above: Every morning Lab until discontinued sta rting 12/14/2018, 4 completed TISSUE CULTURE [facility] End: 12-14-2018 Transthoracic echocardiography ECHOCARDIOGRAM Echocardiography STAT One Time for 1 Occurrences starting 12/14/2018 until 12/14/2018 [facility] Comment on above: One Time for 1 Occurrences starting 11/30 until 12/14/2018 Transthoracic echocardiography ECHOCARDIOGRAM Echocardiography STAT 12/14/2018 11:04 AM [employer] TYPE AND SCREEN - POSSIBLE TRANSFUSION TYPE AND SCREEN - POSSIBLE TRANSFUSION Blood Bank Today 12/14/2018 10:42 AM [employer] X-ray of right knee JONATHON ASTUDILLO Comment on above: Ordered: 01/04/2019 X-ray of right knee XR KNEE RIGH T 3 VIEWS Imaging Routine Hx of total knee arthroplasty, right 12/22/2021 10:36 AM [facility] Immunizations Immunization Date Immunization Notes Care Provider Fa [facility] 10-09-2023 influenza virus vaccine, unspecified formulation Aubree Ireland MD Work Phone: [facility] 08-03-2018 influenza virus vaccine, unspecified formulation [facility] Payers Date Payer Category Payer Self-pay 2024 Medicare HUMANA MEDICARE HU[employer]NA MEDICARE PPO [id number] 2024-Present [phone] [address] [place] [address] PPO [id number] 2016 Medicaid MEDICAID MEDICAI D xxxxxxxxxxxx 2016-Present xxxxxxxxxxxx [id number] 2016 Medicaid [id number] .[id number] 2015 Medicare xxxxxxxxx [id number] .[id number] 2015 Medicare [id number] .425761.315 2012 Medicaid [id number] 1.13.159.2.7.3 .[id number] 2012 Medicare [id number] 2011 Medicare [id number] 1959 Medicaid [id number] 1955 Unknown [id number] 2.16.840.1.842041.3.579.2.983 1955 Unknown [id number] 2.16.840.1.946757.3.579.2.983 1955 Unknown [id number] 2.16.840.1.667721.3.579.2.419 1955 Unknown [id number] 2.16.840.1.448667.3.579.2.651 1955 Unknown [id number] 2.16.840.1.427622.3.579.2.651 1955 Unknown [id number] 2.16.840.1.434299.3.579.2.651 1955 Unknown [id number] 2.16.840.1.702116.3.579.2.651 Unknown [id number] 2.16.840.1.933423.3.579.2.462 Unknown [id number] 2.16.840.1.870051.3.579.2.462 Unknown [id number] 2.16.840.1.768392.3.579.2.462 Unknown [id number] 2.16.840.1.540728.3.579.2.462 Unknown [id number] 2.16.840.1.542080.3.579.2.462 Unknown [id number] 2.16.840.1.611998.3.579.2.462 Unknown [id number] 2.16.840.1.241797.3.579.2.462 Unknown [id number] 2.16.840.1.812895.3.579.2.462 Unknown [id number] 2.16.840.1.369348.3.579.2.462 Unknown [id number] 2.16.840.1.033964.3.579.2.462 Social History Date Type Detail Facility Start: 12-13-2018 End: 05-13-2025 Tobacco smoking status KSIS Current every day smoker [facility] Start: 01-11-1968 History of tobacco use Cigarette Smoker [employer] Start: 12-13-2018 End: 07-29-2024 Cigarettes smoked current (pack per day) - Reported [facility] History of tobacco use Snuff User [facility] Start: 1955 Sex Assigned At Not on file [facility] Start: 08-14-2019 End: 07-29-2024 Alcohol intake No [facility] Start: 12-04-2019 End: 08-20-2024 Alcohol intake Current non-drinker of alcohol (finding) [facility] Start: 01-10-2018 End: 12-25-2019 Tobacco use and exposure Never used [facility] Exposure to SARS-CoV-2 (event) Not sure [facility] National Score (1-100), lower number is lower risk 55 [facility] Start: 1955 Sex assigned at Female C [facility] Start: 07-29-2024 Gender identity Identifies as female gender (finding) [facility] NEGATED: Highlighted row Not [facility] Medical Equipment Procedure Code Equipment Code Equipment Origin al Text Equipment Identifier Dates Tibial Insert Re f Start: 12-14-2018 Comment on above: Description: Ref 96-0512 Lot [id number] tivial insert Fixed bearing TCS Size 2 15mm Tibial Insert Re f Start: 12-14-2018 Comment on above: Description: Ref 96-0512 Lot [id number] tivial insert Fixed bearing TCS Size 2 15mm Tibial Insert Re f Start: 12-14-2018 Comment on above: Description: Ref 96-0512 Lot [id number] tivial insert Fixed bearing TCS Size 2 15mm Tibial Insert Re f Start: 12-14-2018 Comment on above: Description: Ref 96-0512 Lot [id number] tivial insert Fixed bearing TCS Size 2 15mm Tibial Insert Re f Start: 12-14-2018 Comment on above: Description: Ref 96-0512 Lot [id number] tivial insert Fixed bearing TCS Size 2 15mm Tibial Insert Re f Start: 12-14-2018 Comment on above: Description: Ref 96-0512 Lot [id number] tivial insert Fixed bearing TCS Size 2 15mm Tibial Insert Re f Start: 12-14-2018 Comment on above: Description: Ref 96-0512 Lot [id number] tivial insert Fixed bearing TCS Size 2 15mm Tibial Insert Re f Start: 12-14-2018 Comment on above: Description: Ref 96-0512 Lot [id number] tivial insert Fixed bearing TCS Size 2 15mm Tibial Insert Re f Start: 12-14-2018 Comment on above: Description: Ref 96-0512 Lot [id number] tivial insert Fixed bearing TCS Size 2 15mm Tibial Insert Re f Start: 12-14-2018 Comment on above: Description: Ref 96-0512 Lot [id number] tivial insert Fixed bearing TCS Size 2 15mm Tibial Insert Re f Start: 12-14-2018 Comment on above: Description: Ref 96-0512 Lot [id number] tivial insert Fixed bearing TCS Size 2 15mm Tibial Insert Re Start: 12-14-2018 Comment on above: Description: Ref 96-0512 Lot [id number] tivial insert Fixed bearing TCS Size 2 15mm Tibial Insert Re f Start: 12-14-2018 Comment on above: Description: Ref 96-12 Lot [id number] tivial insert Fixed bearing TCS Size 2 15mm Tibial Insert Re Start: 12-14-2018 Comment on above: Description: Ref 96-0512 Lot [id number] tivial insert Fixed bearing TCS Size 2 15mm Tibial Insert Re Start: 12-14-2018 Comment on above: Description: Ref 96-0512 Lot [id number] tivial insert Fixed bearing TCS Size 2 15mm Tibial Insert Re Start: 12-14-2018 Comment on above: Description: Ref 96-0512 Lot [id number] tivial insert Fixed bearing TCS Size 2 15mm Tibial Insert Re Start: 12-14-2018 Comment on above: Description: Ref 96-0512 Lot [id number] tivial insert Fixed bearing TCS Size 2 15mm Tibial Insert Re Start: 12-14-2018 Comment on above: Description: Ref 96-0512 Lot [id number] tivial insert Fixed bearing TCS Size 2 15mm Tibial Insert Re Start: 12-14-2018 Comment on above: Description: Ref 96-0512 Lot [id number] tivial insert Fixed bearing TCS Size 2 15mm Tibial Insert Re Start: 12-14-2018 Comment on above: Description: Ref 96-0512 Lot [id number] tivial insert Fixed bearing TCS Size 2 15mm Tibial Insert Re Start: 12-14-2018 Comment on above: Description: Ref 96-0512 Lot [id number] tivial insert Fixed bearing TCS Size 2 15mm Tibial Insert Re Start: 12-14-2018 Comment on above: Description: Ref 96-0512 Lot [id number] tivial insert Fixed bearing TCS Size 2 15mm Tibial Insert Re f Start: 12-14-2018 Comment on above: Description: Ref 96-0512 Lot [id number] tivial insert Fixed bearing TCS Size 2 15mm Tibial Insert Re f Start: 12-14-2018 Comment on above: Description: Ref 96-0512 Lot [id number] tivial insert Fixed bearing TCS Size 2 15mm Tibial Insert Re f Start: 12-14-2018 Comment on above: Description: Ref 96-0512 Lot [id number] tivial insert Fixed bearing TCS Size 2 15mm Tibial Insert Re f Start: 12-14-2018 Comment on above: Description: Ref 96-0512 Lot [id number] tivial insert Fixed bearing TCS Size 2 15mm Tibial Insert Re Start: 12-14-2018 Comment on above: Description: Ref 96-0512 Lot [id number] tivial insert Fixed bearing TCS Size 2 15mm Tibial Insert Re Start: 12-14-2018 Comment on above: Description: Ref 96-0512 Lot [id number] tivial insert Fixed bearing TCS Size 2 15mm Tibial Insert Re 511 [id number] Start: 12-14-2018 Comment on above: Description: Ref Renuka- 0512 Lot [id number] tivial insert Fixed bearing TCS Size 2 15mm Tibial Insert Re Start: 12-14-2018 Comment on above: Description: Ref 96-0512 Lot [id number] tivial insert Fixed bearing TCS Size 2 15mm Tibial Insert Re Start: 12-14-2018 Comment on above: Description: Ref 96-0512 Lot [id number] tivial insert Fixed bearing TCS Size 2 15mm Goals Date Patient Goal Desired Activity /State Mental Status Date Assessment Result Facility 05-13-2025 Cognitive function Voice/Name [facility] Work Phone: Clinical Notes 12-22-2021 to 05-13-2025 Note Date & Type Note Facility 05-13-[address] [facility] 05-13-2025 History and physical note Note Date/Time May 13, 2025 12:16pm [facility] Medical Records Department [address] [place] [address] History & Physical Exam 05/13/25 1214 MR#: [id number] Acct: [id number] Name: AMNA SEQUEIRA Rep #:[id number] : 1955 70 From: Noe Wright DO PCP: Dr. Galindo Gutierrez MD Status:REG SD C Location: [place] [address] HPI - General General Date of Admission: [...] 30minutes before eating x2wks * office FU [facility] Medical History History of stress test Wears [...] [facility] and [facility] before [...] Galindo Gutierrez MD; Noe Wright DO~ Signed [facility] Work Phone: 1(720) 901-635507-15-2025 Consult [facility] Date/Time May 13, 2025 12:0 4pm [facility] Medical Records Department [address] [place] [address] Pre-Anesthesia Evaluation 05/13/25 1154 MR#: [id number] Acct: [id number] Name: AMNA SEQUEIRA Rep #:[id number] : 1955 70 From: Doe Constantino MD PCP: Dr. Galindo Gutierrez MD Status:REG SD C Y Race: C Location: [place] [address] ASA Classification* ASA Classification ASA Classification: 4 [...] Procedure(s): EGD Anesthesia History Anesthesia History - merchandise planning manager: Anesthesia History - merchandise planning manager Hx Hospitalization No 05/12/25 08:53 Any Problems [...] surgery: Oxycodone and gabapentin. PONV PONV - merchandise planning manager: PONV - merchandise planning manager Female Yes 05/12/25 08:53 HX of Motion [...] 05/13/25 11:08 Respiratory Assessment Respiratory Assessment - merchandise planning manager: Respiratory Tract Infection Hx - merchandise planning manager Hx Respiratory Tract Infection No 05/12/25 08:53 STOP Sleep Apnea STOP Sleep Apnea - merchandise planning manager: STOP Sleep Apnea - merchandise planning manager Hx Hypertension No 05/12/25 08:53 Hx Sleep [...] Tobacco Use History Tobacco Use History - merchandise planning manager: Tobacco Use History - merchandise planning manager Tobacco Use Smoking Status Current every day smoker 05/12/25 08:53 Hx Tobacco Use No 05/12/25 08:53 Years Smoking Packs Smoked per Day Smoking Cessation Date was within the last 15 years Hx Smoking Cessation Date Hx Smoking Cessation Counseling Any additional information?: Yes Smoking Status: Current every day smoker (Patient smoked today.) Hematologic Medial History Hematologic Hx - merchandise planning manager: Hematologic Medical Hx - documentation specialist Hx of Blood Transfusion No 05/12/25 08:53 Hx of Transfusion in last 3 No 05/12/25 08:53 Months Date of Last Transfusion (if within last 3 months) Ever experience any problems No 05/12/25 08:53 with transfusion(s)? Specify any problems Hx of Preganancy in last 3 No 05/12/25 08:53 Months Nurse Filling Out Transfusion [facility] 05/12/25 08:53 & Questions: Date: 05/12/25 05/12/25 08:53 Time: 09:06 05/12/25 08:53 Patient unable to answer at this time (ie. confused, unrespo /Reproduction History /Reproductive History - merchandise planning manager: /Reproductive Hx- merchandise planning manager Hx Now No 05/12/25 08:53 Gestational Age [...] MD Cosigner Signature: Date CC: ~ Signed [facility] Work Phone: 1(725) 266-672407-15-2025 Procedure note [facility] Medical Records Department [address] [place] [address] EGD Report MR#: [id number] Acct: [id number] Name: AMNA SEQUEIRA Rep #:[id number] : 1955 70 From: Noe Wright DO [...] pathology results. Procedure Code(s): --- Professional --- 81445, Small intestinal endoscopy, enteroscopy beyond second portion of duodenum, not including ileum; with biopsy, single or multiple CPT copyright 2021 [employer]. All rights reserved. The codes documented in this report are preliminary and upon course developer review may be revised to meet current compliance requirements. Noe Wright DO 05/13/2025 12:58:49 PM This report has been signed electronically. Number of Addenda: 0 Note Initiated On: 05/13/2025 12:37 PM 05/13/25 1258 Date _ Noe Wright DO Cosigner Signature: Date (if indicated) CC: Dr. Galindo Gutierrez MD; Noe Wright DO ~ Date Dictated: 05/13/25 1237 Date Transcribed: Internal Carver: RF Signed [facility]07-15-2025 Procedure note [facility] Medical Records Department [address] [place] [address] Operative Report - CC Letter MR#: [id number] Acct: [id number] Name: AMNA SEQUEIRA Rep #:[id number] : 1955 70 From: Noe Wright DO [...] ~ Date Dictated: 05/13/25 1237 Date Transcribed: Internal Carver: RF Signed [facility]07-15-2025 History and physical note [facility] Medical Records Department [address] [facility] [place] [address] History & Physical Exam 05/13/25 1214 MR#: [id number] Acct: [id number] Name: AMNA SEQUEIRA Rep #:[id number] : 1955 70 From: Noe Wright DO PCP: Dr. Galindo Gutierrez MD Status:REG SD C Location: [place] [address] HPI - General General Date of Admission: [...] 30minutes before eating x2wks * office [facility] Medical History History of stress test Wears [...] [facility] and [facility] before [...] Galindo Gutierrez MD; Noe Wright DO~ Signed [facility]07-15-2025 [facility] Medical Records Department [address] [place] [address] History Physical Exam 05/13/25 1214 MR#: [id number] Acct: [id number] Name: AMNA SEQUEIRA Rep #: [id number] : 1955 70 From: Noe Wright DO PCP: Dr. Galindo Gutierrez MD Status[facility] Location: [place] [address] HPI - General General Date of Admission: [...] 30minutes before eating x2wks * office [facility] Medical History History of stress test Wears [...] Date / Time Sul (more content not included)...[facility]07-15-2025 Consult note [facility] Medical Records Department [address] [place] [address] Pre-Anesthesia Evaluation 05/13/25 1154 MR#: [id number] Acct: [id number] Name: AMNA SEQUEIRA Rep #:[id number] : 1955 70 From: Doe Constantino MD PCP: Dr. Galindo Gutierrez MD Status:REG SD C Y Race: C Location: [place] [address]- ASA Classification* ASA Classification ASA Classification: 4 [...] Procedure(s): EGD Anesthesia History Anesthesia History - merchandise planning manager: Anesthesia History - merchandise planning manager Hx Hospitalization No 05/12/25 08:53 Any Problems [...] surgery: Oxycodone and gabapentin. PONV PONV - merchandise planning manager: PONV - merchandise planning manager Female Yes 05/12/25 08:53 HX of Motion [...] 05/13/25 11:08 Respiratory Assessment Respiratory Assessment - merchandise planning manager: Respiratory Tract Infection Hx - merchandise planning manager Hx Respiratory Tract Infection No 05/12/25 08:53 STOP Sleep Apnea STOP Sleep Apnea - merchandise planning manager: STOP Sleep Apnea - merchandise planning manager Hx Hypertension No 05/12/25 08:53 Hx Sleep [...] Tobacco Use History Tobacco Use History - merchandise planning manager: Tobacco Use History - merchandise planning manager Tobacco Use Smoking Status Current every day smoker 05/12/25 08:53 Hx Tobacco Use No 05/12/25 08:53 Years Smoking Packs Smoked per Day Smoking Cessation Date was within the last 15 years Hx Smoking Cessation Date Hx Smoking Cessation Counseling Any additional information?: Yes Smoking Status: Current every day smoker (Patient smoked today.) Hematologic Medial History Hematologic Hx - merchandise planning manager: Hematologic Medical Hx - documentation specialist Hx of Blood Transfusion No 05/12/25 08:53 Hx of Transfusion in last 3 No 05/12/25 08:53 Months Date of Last Transfusion (if within last 3 months) Ever experience any problems No 05/12/25 08:53 with transfusion(s)? Specify any problems Hx of Preganancy in last 3 No 05/12/25 08:53 Months Nurse Filling Out Transfusion [facility] 05/12/25 08:53 & Questions: Date: 05/12/25 05/12/25 08:53 Time: 09:06 05/12/25 08:53 Patient unable to answer at this time (ie. confused, unrespo /Reproduction History /Reproductive History - merchandise planning manager: /Reproductive Hx- merchandise planning manager Hx Now No 05/12/25 08:53 Gestational Age (in weeks): EDC: Hx Hx Para Hx Section SAB No 05/12/25 08:53 Active Medications Active Medications: Current Medications Generic Name Dose Route Start Last Admin Trade Name Freq PRN Reason Stop Dose Admin Lactated Ringer's 1,000 mls @ 15 mls/hr 05/13/25 10:45 [facility] History History of stress test [...] MD Cosigner Signature: Date CC: ~ Signed [facility]05-22-2025 Nuclear medicine Diagnostic study note [facility] Imaging Services [address] [place] [address] Gastric Emptying Study MR#: [id number] Acct: [id number] Name: AMNA SEQUEIRA Rep #: [id number] : 1955 F 69 From: Yimi Coto MD PCP: Dr. Galindo Gutierrez MD Status: REG CL I Study:Gastric Emptying Study Date of Exam: 03/20/25 Exam# [id number] Ordering Dr: Hakan Barkley PROCEDURE: GASTRIC EMPTYING [...] geometric mean was used to calculate a [id number]. RADIOPHARMACEUTICAL: Sulfur colloid DOSE 1.2mCi FINDINGS: Percent activity remaining in stomach: 1 hour 62% % (normal 37-90%) NM/Gastric Emptying Study IMPRESSION: Normal gastric emptying examination. Reading Location: [place] [address] CC: MAGI Barkley; Dr. Galindo Gutierrez MD ~ Internal Carver: Signed [facility]2025 Evaluation note* Diagnosis Onset Date Resolution Status Admit Date Early satiety acute March 04 9:33am Nausea acute March 04, 2025 9:33am Pancreatic insufficiency acute March 04, 2025 9:33am [facility] Work Phone: 1(469) 114-622705-06-2025 Evaluation note* Diagnosis Onset Date Resolution Status Admit Date Early satiety acute March 04 9:33am Nausea acute March 04, 2025 9:33am Pancreatic insufficiency acute March 04, 2025 9:33am Early satiety acute March 18, 2 025 9:04am Nausea acute March 18, 2025 9:04am [facility] Work Phone: 1(756) 462-931505-06-2025 Evaluation note* Diagnosis Onset Date Resolution Status Admit Date Early satiety acute March 04 9:33am Nausea acute March 04, 2025 9:33am Pancreatic insufficiency acute March 04, 2025 9:33am Early satiety acute March 18, 2 025 9:04am Nausea acute March 18, 2025 9:04am Early satiety acute May 13, 2025 10:24am Nausea acute May 13 10:24am [facility] Work Phone: 1(253) 578-633301-20-2025 Note* Addendum Note - Billie Joseph PA-C - 11/18/2024 3:08 PM ESTAddended by: BILLIE JOSEPH on: 11/18/2024 03:08 PM Modules accepted: Orders [facility]01-20-2025 Miscellaneous Notes* Addendum Note - Billie Joseph PA-C - 11/18/2024 3:08 PM ESTAddended by: BILLIE JOSEPH on: 11/18/2024 03:08 PM Modules accepted: Orders documented in this encounterBethesda [facility] NoteHNO ID: [id number] Author: BILLIE JOSEPH PA-C Service: ? Author Type: Physician Laundry Clerk Type: Progress Notes Filed: 11/18/2024 15:07 Note Text: Billie Joseph PA-C Surgical Oncology [address] [facility], [address] [place] [phone] VIRTUAL VISIT PROGRESS NOTE This is a virtual visit using [email or web address] Video Visit. It required patient-provider interaction for the medical decision making as documented below. I have communicated my name and active licensure. The patient's identity and physical location were verified at the time of this visit. Either the patient or their legal farm loan representative has been informed of the risks [...] GENERAL: alert and appropri (more content not included)...[facility]01-16-2025 History of Present illness Narrative* Billie Joseph PA-C - 11/14/2024 2:32 PM EST Images from the original note were not included. Billie Joseph PA-C Surgical Oncology [address] [facility], [address] [place] [address] VIRTUAL VISIT PROGRESS NOTE This is a virtual visit using Appirio Zoom Video Visit. It required patient- provider interaction for the medical decision making as documented below. I have communicated my name and active licensure. The patient's identity and physical location wereverified at the time of this visit. Either the patient or their legal farm loan representative has been informed of the risks [...] which included preparing to see the patient, [id number] patient care, completing clinical documentation, performing a medically appropriate examination, counseling and educating the patient/family/caregiver, and communicating results to the patient/family/caregiver Billie Joseph PA-C documented [facility] History of Present illness Narrative* Amanda [...] PATIENT PRESENTS WITH AN IMPLANTABLE OR ATTACHED SUPPLY CHAIN PROCUREMENT MANAGER: No ALLERGIES: Reviewed and unchanged CONTRAST ALLERGY: [...] 2024 TIME: 4:02 PM documented in this encounterBet[facility]25 NoteHNO ID: [id number] Author: AMANDA PICHARDO RT(R) Service: ? Author Type: Center Customer Service Associate Type: Progress Notes Filed: 11/04/2024 16:03 Note [...] PATIENT PRESENTS WITH AN IMPLANTABLE OR ATTACHED SUPPLY CHAIN PROCUREMENT MANAGER: No ALLERGIES: Reviewed and unchanged CONTRAST ALLERGY: [...] Sequeira DATE: November 04, 2024 TIME: 4:02 [facility]10-22-2024 Note* Addendum Note - Aubree Ireland MD - 08/20/2024 2:49 PM EDTAddended by: AUBREE IRELAND on: 08/20/2024 02:49 PM Modules accepted: Orders [facility]10-22-2024 Miscellaneous Notes* Addendum Note - Aubree Ireland MD - 08/20/2024 2:49 PM EDTAddended by: AUBREE IRELAND on: 08/20/2024 02:49 PM Modules accepted: Orders documented in this encounterBethesda [facility]10-22-2024 NoteHNO ID: [id number] Author: AUBREE IRELAND MD Service: ? Author [...] for her RA Luisa Ireland MD [facility]10-22-2024 History of Present illness Narrative* Aubree Ireland [...] Ireland MD [facility] Surgeon documented in this encounterBet[facility]10-15-2024 History of Present illness Narrative* Amanda [...] PATIENT PRESENTS WITH AN IMPLANTABLE OR ATTACHED SUPPLY CHAIN PROCUREMENT MANAGER: No ALLERGIES: Reviewed and unchanged CONTRAST ALLERGY: [...] 2024 TIME: 3:53 PM documented in this encounterBethesda [facility]10-15-2024 NoteHNO ID: [id number] Author: AMANDA PICHARDO RT(R) Service: ? Author Type: Center Customer Service Associate Type: Progress Notes Filed: 08/13/2024 15:53 Note [...] PATIENT PRESENTS WITH AN IMPLANTABLE OR ATTACHED SUPPLY CHAIN PROCUREMENT MANAGER: No ALLERGIES: Reviewed and unchanged CONTRAST ALLERGY: [...] Sequeira DATE: August 13, 2024 TIME: 3:53 [facility]10-03-2024 NoteHNO ID: [id number] Author: BILLIE URIARTE RN Service: Care Management Author Type: Registered Nurse Type: Care Mgt Progress Note Filed: 08/01/2024 15:46 Note Text: CARE MANAGEMENT DISCHARGE NOTE SERVICE DATE: August 01, 2024 SERVICE TIME: 3:41 PM Admission Date: 07/28/2024 LOS: 4 days Discharge Arrangement Discharge Arrangement: Home with Home Health Services Arranged Medical Services: Skilled Home Health Care Type: Home Health Agency, Senior Care, Physical Therapy, Occupational Therapy Provider Name: [facility] Caregiver Assessment Caregiver is ready, willing [...] Handoff to: Other Caregiver Other Caregiver Name/Phone: [facility]/ Bedside RN Additional Information: Discharge Information Row Name ED to Hosp-Admission (Current) from 07/28/[address] [facility] Home Health Care Agency [facility] Spoke with patient and patient's daughter Fransisca. Discharge today. Discharge orders complete. Patient declines need for placement and has elected to return home at discharge with skilled home health care/ home therapy services. Patient is agreeable to us arranging [facility] through a provider that can take her insurance. No preference. [facility] notified and is able to accept. [facility] aware of discharge home today. Physician order placed for home care services: Yes. Start of care date: [facility] will reach out to patient to confirm start of care date. Patient/Family agreeable to discharge plan: Yes. SIGNATURE: Billie Uriarte RN PATIENT NAME: Amna Sequeira DATE: August 01, 2024 TIME: 3:41 PM CONTACT #: [id number] [facility]10-03-2024 NoteHNO ID: [id number] Author: AUBREE IRELAND MD Service: General Surgery Author Type: Physician Type: Progress Notes Filed: 08/01/2024 15:02 Note Text: Documentation Query Please clarify the Status of Pancreatic Fistula. Diagnosis Ruled Out this encounter This document will become part of the patient's medical record.[facility]10-03-2024 NoteHNO ID: [id number] Author: AUBREE IRELAND MD Service: General Surgery Author Type: Physician Type: Progress Notes Filed: 08/01/2024 14:45 Note Text: Documentation Query Please clarify the Degree of Protein-Calorie Malnutrition (PCM) with the above clinical indicators. Moderate Protein-Calorie Malnutrition is the current diagnosis, Severe Protein-Calorie Malnutrition Ruled Out This document will become part of the patient's medical record.[facility]10-03-2024 NoteHNO ID: [id number] Author: BELEN MENARD APRN.CNP Service: Gastroenterology Author [...] GI in OP setting - can call [phone] to make an appointment with [facility] or can call [phone] for [place] [facility]. GI attending, Dr. Howard GI will sign off. Please contact if there are any questions, concerns, or changes in clinical status.[facility]10-03-2024 NoteHNO ID: [id number] Author: OSVALDO SEGURA MD Service: Pain Management [...] DVTs on Coumadin, hypothyroidism transferred 07/28 from [place] with nausea, emesis, anorexia, 30 pound weight [...] Patient is followed by Dr. Simon in [place] for chronic pain management. Home pain regimen [...] tab(s) (DIFLUCAN) 400 mg ORAL DAILY Hernan Swna MD amoxicillin-clavulanate potassium 875 mg tab(s) (AUGMENTIN) [...] 0.5 mg at 10 (more content not included)...[facility]10-03-2024 NoteHNO ID: [id number] Author: AUBREE IRELAND MD Service: General Surgery [...] questions or concerns Mon-Fri 6a-5p please page [phone]. After 5pm and on Weekends and Holidays, please page [phone] if in ICU or [phone] if on RNF. SUBJECTIVE: Pt seen at [...] 0659 08/01/24 07 - 08/02/24 0659 Shift 9790-5568 7320-5263 8283-5321 24 Hour Total 1031-5228 0957-0094 7900-1134 24 Hour Total INTAKE PO 120 120 PO 120 120 IV 125 125 Volume (mL) (lactated ringers iv infusion) 125 125 Shift Total 125 120 245 OUTPUT Urine 400 0 800 1200 Output ( External Collection Device 07/29/24 0016 [facility]) 400 0 800 1200 Shift Total 400 [...] 6* 7 CREAT -- (more content not included)...[facility]10-02-2024 NoteHNO ID: [id number] Author: OSVALDO SEGURA MD Service: Palliative Care Author Type: Physician Type: Progress Notes Filed: 07/31/2024 15:32 Note Text: Documentation Query Please clarify the Present on Admission status for the diagnosis of sacral Pressure Injury. Present on Admission This document will become part of the patient's medical record.[facility]10-02-2024 NoteHNO ID: [id number] Author: BILLIE URIARTE RN Service: Care Management [...] list [place] [address] left at the bedside. ADDENDUM 7425: Spoke with patient at the bedside. Discussed therapy recommendation and reviewed SNF choice list. Patient states she prefers to return home at discharge but would like to speak with her family first before making any decisions. Will continue to follow for transitional/discharge planning needs. SIGNATURE: Billie Uriarte RN PATIENT NAME: Amna Sequeira DATE: July 31, 2024 TIME: 2:06 PM PAGER/CONTACT #: [phone] Regional Hospital10-02-2024 Note HNO ID: [id number] Author: AUBREE IRELAND MD Service: General Surgery Author Type: Physician Type: Progress Notes Filed: 07/31/2024 09:13 Note Text: Documentation Query Please clarify the Diagnosis associated with the above clinical indicators. Hypokalemia This document will become part of the patient's medical record.[facility]10-02-2024 NoteHNO ID: [id number] Author: OSVALDO SEGRUA MD Service: Pain Management Author Type: Physician [...] DVTs on Coumadin, hypothyroidism transferred 07/28 from [place] with nausea, emesis, anorexia, 30 pound weight [...] Patient is followed by Dr. Simon in [place] for chronic pain management. Home pain regimen [...] 1 g tab(s) ( (more content not included)...[facility]10-02-2024 NoteHNO ID: [id number] Author: AUBREE IRELAND MD Service: General Surgery [...] questions or concerns Mon-Fri 6a-5p please page [phone]. After 5pm and on Weekends and Holidays, [...] 07/30/24699 - 07/31/2465807/31/24699 - 08/01/24 0659 Shift 2482-2084 1592-9690 5617-8876 24 Hour Total 3572-7220 0904-0908 1035-2903 24 Hour Total INTAKE Shift Total OUTPUT Urine 400 463 987 5100 Output ( External Collection Device 07/29/24 0016 [facility]) 400 271 477 3509 Shift Total 400 621 581 0054 Weight (kg) 79.3 79.3 80.7 80.7 80.7 [...] (COMPAZINE) 5 mg INTRA (more content not included)...[facility]10-01-2024 NoteHNO ID: [id number] Author: BILLIE URIARTE RN Service: Care Management [...] 30, 2024 TIME: 10:19 AM PAGER/CONTACT #: [phone] [facility]09-30-2024 Note HNO ID: [id number] Author: PATI ANDREW RN Service: Care Management Author Type: Registered Nurse Type: Care Mgt Initial Assessment Filed: 07/29/2024 17:57 Note Text: CARE MANAGEMENT: ASSESSMENT AND DISCHARGE PLAN SERVICE DATE: July 29, 2024 SERVICE TIME: 5:50 PM PCP: No primary care provider on file. Primary Contact: Extended Emergency Contact Information Primary Emergency Contact: Fransisca Mendez [employer] Relation: Daughter Secondary Emergency Contact: Ana Bermudez [place] Relation: Sister Admission Status: Inpatient Insurance Provider: [employer] MEDICARE PPO Discharge Planning requested by: Per Department Practice Potential Transition Plans To Be Determined Advance Directives Current Advance Directive: None Backhoe Operator Attempted to Assist with AD Completion: Yes [...] home, General wellness, Less pain, Better appetite [place] of Choice Explained: [place] of Choice Given: No Reason Not Given: [...] 29, 2024 TIME: 5:44 PM CONTACT #: [phone] [facility] Hospital09-30-2024 Note HNO ID: [id number] Author: AKI HANNA APRN.CNP Service: General Surgery Author Type: Nurse Practitioner Type: Progress Notes Filed: 07/29/2024 08:54 Note Text: Emergency General Surgery Progress Note SERVICE DATE: July 29, 2024 Emergency General Surgery Service Pager: For questions or concerns Mon-Fri 6a-5p please page [phone]. After 5pm and on Weekends and Holidays, [...] NPO Code Status: N (more content not included)...[facility] 09-23-2023 NotePROCEDURE: CHEST AP [...] atelectasis 4. No pneumothorax, consolidation, [facility] History of Present illness Narrative* Félix MoultonMARVA-SURGICAL CONSULTANT - 12/22/2021 10:00 AM EST HPI: Patient [...] have reviewed the findings of the clinical application support technician and agree with their assessment. Ortho Nurse Established Patient Intake Room#: 5 Date: 12/22/2021 10:40 AM Patient: Amna Sequeira MR#: [id number] : 1955 Age: 66 y.o. 1yr R [...] 12/22/2021 10:40 AM Patient: Amna Sequeira MR#: [id number] : 1955 Age: 66 y.o. 1yr R [...] amoxicillin, and sulfa antibiotics. documented in this [facility] Author ROBERT Alvarado [facility] Note Date/Time May 13, 2025 2:16 pm [facility] Medical Records Department [address] [place] [address] Anesthesia Postop Eval I 05/13/25 1300 MR#: [id number] Acct: [id number] Name: FABBYAMNA Pond Rep #:[id number] : 1955 70 From: Homero Alvarado PCP: Dr. Galindo Gutierrez MD Status:REG SD C Y Race: C Location: [place] [address] Anesthesia: Postop Eval I Current Vital Signs [...] Alvarado Cosigner Signature: Date CC: ~ Signed [facility] Work Phone: Evaluation note* Diagnosis Hx of total knee arthroplasty, right- Primary [facility] Diagnosis Acute pancreatitis, unspecified complication status, unspecified pancreatitis type- Primary documented in [facility]* Diagnosis Acute pancreatitis, unspecified complication status, unspecified pancreatitis type documented in this encounter [facility] note* Diagnosis Liver lesion- Primary Other specified disorders of liver Diarrhea of presumed infectious origin documented in this encounter [facility] note* Diagnosis Liver lesion- Primary Other specified disorders of liver documented in this encounter [facility] note* Diagnosis Liver lesion Other specified disorders of liver documented in this encounter [facility] note* Diagnosis Liver lesion- Primary Other specified disorders of liver Bilious vomiting with nausea Gastric perforation (HCC) Chronic or unspecified gastric ulcer with perforation, without mention of obstruction documented in this encounter [facility] for referral (narrative)No reason for referral information availableWRegency Hospital Company Work Phone: Reason for Referral Status Reason Specialty Diagnoses / Procedures Referre d By Contact Referred To Contact Félix Moulton APRN-SURGICAL CONSULTANT [address] [place] [address] Status Reason Specialty Diagnoses / Procedures Referred By Contact Referred To Contact New Request Procedures ACTIVITY TOLERATED Félix Moulton APRN-CNP [address] [place] [address] Status Reason Specialty Diagnoses / Procedures Referre d By Contact Referred To Contact Closed Procedures ECG Jayro Marquez MD [address] [place] [address] Status Reason Specialty Diagnoses / Procedures Referre d By Contact Referred To Contact Katie Pizarro CNP [address] [place] [address] Status Reason Specialty Diagnoses / Procedures Referred By Contact Referred To Contact New Request Infectious Diseases Diagnoses 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, initial encounter Félix Moulton, IT ADMINISTRATOR-SURGICAL CONSULTANT [address] [place] [address] Maximiliano Mayo MD [address] [place] [address] Status Reason Specialty Diagnoses / Procedures Referred By Contact Referred To Contact New Request Diagnoses History of revision of total replacement of right knee joint Procedures XR KNEE RIGHT 3 VIEWS Félix Moulton IT ADMINISTRATOR-SURGICAL CONSULTANT [address] [place] [address] Status Reason Specialty Diagnoses / Procedures Referred By Contact Referred To Contact New Request Diagnoses History of revision of total replacement of right knee joint Procedures XR KNEE RIGHT 3 VIEWS Galindo Zepeda MD [address] [place] [address] Status Reason Specialty Diagnoses / Procedures Referred By Contact Referred To Contact New Request Diagnoses History of revision of total replacement of right knee joint Procedures XR BONE LENGTH STUDY Galindo Zepeda MD [address] [place] [address] Status Reason Specialty Diagnoses / Procedures Referred By Contact Referred To Contact New Request Diagnoses History of total knee arthroplasty, right Procedures XR KNEE RIGHT 3 VIEWS Félix Moulton IT ADMINISTRATOR-SURGICAL CONSULTANT [address] [place], [place] [id number] Specialty Diagnoses / Procedures Referred By Contac t Referred To Contact Diagnoses Hx of total knee arthroplasty, right Procedures XR KNEE RIGHT 3 VIEWS Félix Moulton IT ADMINISTRATOR-SURGICAL CONSULTANT [address] [place] [id number] Referral ID Status Reason Start Date Expiration Date V isits Requested Visits Authorized [id number] New Request 12/16/2021 01/10/2023 1 1 Specialty Diagnoses / Procedures Referred By Contac t Referred To Contact CT IMAGING Diagnoses Acute pancreatitis, unspecified complication status, unspecified pancreatitis type Procedures CT PANCREAS W IVCON CT ABDOMEN W/CONTRAST Aubree Ireland MD [address] [place] [address] Ct Imaging [facility] Referral ID Status Reason Start Date Expiration Date Visits Requested Visits Authorized [id number] Pending Review Auto-Generat ed Referral 08/01/2024 08/31/2025 1 1 Specialty Diagnoses / Procedures Referred By Contac t Referred To Contact CT IMAGING Diagnoses Liver lesion Procedures CT LIVER W IVCON CT ABDOMEN W/CONTRAST Aubree Ireland MD [address] [place] [address] Ct Imaging [facility] Referral ID Status Reason Start Date Expiration Date Visits Requested Visits Authorized [id number] Pending Review Auto-Generat ed Referral 4 09/19/2025 1 1 Specialty Diagnoses / Procedures Referred By Contac t Referred To Contact MR IMAGING Diagnoses Liver lesion Procedures MRI LIVER WO/W IVCON MRI ABDOMEN W/O & W/CONTRAST MATERIAL Aubree Ireland MD [address] [place] [address] Mr Imaging [facility] Referral ID Status Reason Start Date Expiration Date Visits Requested Visits Authorized [id number] New Request Auto-Generat ed Referral 09/19/2025 1 1 Specialty Diagnoses / Procedures Referred By Contac t Referred To Contact Gastroenterology Diagnoses Bilious vomiting with nausea Gastric perforation (HCC) Procedures CONSULT TO GASTROENTEROLOGY OFFICE/OUTPATIENT NEW HIGH MDM 60 MINUTES Billie Joseph PA-C [address] [place] [address] Referral ID Status Reason Start Date Expiration Date Visits Requested Visits Authorized [id number] Authorized PCP Requested Referral 11/18/2024 11/18/2025 1 1 Hospital Course * Juarez Katie L, SURGICAL CONSULTANT - 12/17/2018 1:54 PM EST Discharge Summary [...] MG TABS Commonly known as: CIPRO nystatin 388520 UNIT/ML oral suspension Commonly known as: MYCOSTATIN [...] tolerated. Discharge Follow-up: Galindo Zepeda MD [address] [place] [id number] In 2 weeks Maximiliano Mayo MD [address] [facility] [phone] In 2 weeks Discharge Disposition: Patient will be discharged in stable condition. Discharge Time: Including assessment, planning, and medication reconciliation was greater than 35 min. Katie Pizarro DNP completing Discharge Summary for Dr. Arreaga Please note Portions of this note utilized AuthorBee dictation software, please excuse any typographical or [...] sent through Care Everywhere. * Ertapenem injection (Egyptian) * CELLULITIS SKIN INFECTION ([facility]) ([place]) * Cellulitis, Discharge Instructions for (Egyptian) documented in this encounter History of Present Illness * Katie Pizarro CNP - 12/17/2018 6:51 PM EST PICC line in atrial caval junction, okay to use, no adjustment needed. * Nicole Crockett - 12/17/2018 4:03 PM EST TRACI met with patient to see if she wanted to use [facility] for the IV antibiotics. Patient stated that she was agreeable to the co-pay but would like to know the company that was providing the medication through [facility]. CM told patient that she would have [...] EST TRACI received call from María from [facility]. María stated that they would not be able to use [facility] for the IV antibiotics because they have to bill [employer] directly. María stated that her office would send the order to [facility] and would call within the hour with the co-pay amounts for the patient. CM to follow. * Félix Moulton, IT ADMINISTRATOR-SURGICAL CONSULTANT - 12/17/2018 2:00 PM EST Total Joint [...] were going to send it to their [facility] office as the patient lives in [place]. CM asked for a return call as soon as possible due to patients possible discharge this afternoon. CM to follow. * Nicole Crockett - 12/17/2018 12:53 PM EST CM met with patient this date to discuss discharge plans. Patient stated she was open to using homehealth services in the home for IV antibiotics. She stated that she had used [facility] in [facility] and would like to use them again. Patient reviewed and signed home health list for [facility]. CM to make referral at this time and also to fax patient information and prescription for IV antibiotics to [facility]. CM to follow. * Viviana Estevez [facility],PharmD - 12/17/2018 11:50 AM EST Pharmacy to Dose - Warfarin Note PATIENT: Amna Sequeira Room/Bed: [facility]/ Desired INR range: 2-3 Indication(s): DVT prophylaxis [...] questions. 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..] Intake/Output Summary (Last 24 hours) at 12/16/2018 0905 Last data filed at 12/16/2018 0815 Gross [...] AM Was on clindamycin IV 12/09-12/13 at [facility] changed to meropenem on 12/13 ASSESSMENT [...] Please note Portions of this note utilized AuthorBee dictation software, please excuse any typographical or [...] - Warfarin Note PATIENT: Amna Sequeira Room/Bed: [facility] Desired INR range: 2-3 Indication(s): Prophylactic Use [...] questions. Signed: Carline Dillon RPh,PharmD, Pharmacist Phone: [phone] Date/Time: 12/16/2018 8:54 AM * Nelsy Rodriguez, OT - 12/15/2018 4:24 PM EST 12/15/18 0473 General Information RN Approved Intervention as tolerated [...] Home 0 Equipment Available straight cane;wheeled walker;shower chair;cloth finishing range tender;hand held shower hose Cognitive Status Examination Orientation Status (Cognition) oriented x 4 Level of Consciousness alert Able to Follow Commands (Communication) WNL Personal Safety and Judgment intact Vision (check all that apply) Vision prescription glasses Hearing Hearing no gross deficits noted Range of Motion (ROM) Range of Motion Examination bilateral upper extremity ROM was WNL Manual Muscle Testing (MMT) Dominant Hand right Hand Renal Medicine Specialist, Right strong Hand Renal Medicine Specialist, Left strong Manual Muscle Testing Results no strength deficits were identified Bed Mobility Skill: Supine to Sit, Rehab Eval Level of [place]: Supine/Sit contact guard Transfer Skill: Sit to Stand, Rehab Eval Level of [place]: Sit/Stand supervision Weight-Bearing Restrictions: Sit/Stand weight-bearing as tolerated Transfer Skill: Stand to Sit, Rehab Eval Level of [place]: Stand/Sit supervision Bathing Level of [place] minimum assist (75% patients effort) (per report prior to OT arrival) Lower Body Dressing Level of [place] dependent (less than 25% patients effort) General Therapy Interventions Planned Therapy Interventions (OT Eval) ADL retraining;balance training;strengthening;transfer training Acute OT AMPA Acute OT [facility] Assessments Daily Activity Inpatient Short Form PRIOR [...] Functional Impairment in Daily Activity - CURRENT [facility] Daily Activity Inpatient Short Form Putting on/Taking [...] Discharge Pt will return home, all transfers [place] Goals Goal 1 Pt will complete h/g standing at sink to challenge standing balance and duration, supervision Goal 2 Pt will bathe self, supervision. Goal 3 Pt will trial use of sock aid/cloth finishing range tender to increase ability to participate in LB dressing, Heath Goal 4 Pt will be Ind with UE HEP Therapist Recommendations At Discharge Recommendations OT Services not recommended at Discharge Plan Plan Narrative edu on use of sock aid and cloth finishing range tender Therapist Information License # [id number] * Hudson Diaz, PT - 12/15/2018 12:14 [...] Supine to Sit, Rehab Eval Level of [place]: Supine/Sit minimum assist (75% patients effort) Physical Assist/Nonphysical Assist: Supine/Sit 1 person assist Transfer Skill: Sit To Stand, Rehab Eval [place] (Sit-Stand Transfers) minimum assist (75% patient effort) Physical Assist/Nonphysical Assist: Sit/Stand 1 person assist Weight-Bearing Restrictions: Sit/Stand weight-bearing as tolerated Assistive Device For Transfer: Sit/Stand 2 wheeled walker Gait Skills, PT Eval Level of [place]: Gait contact guard Physical Assist/Nonphysical Assist: Gait [...] control;decreased strength;decreased ROM Stair Negotiation Level of [place]: Stair Negotiation unable to perform General Interventions [...] railing 4 - No Assistance PRIOR LEVEL [facility] Mobility Raw Score 24 PRIOR LEVEL [facility] Mobility Functional Limitation/Modifier 0.00% Prior Functional Impairment in Basic Mobility - CH CURRENT [facility] Basic Mobility Inpatient Short Form Turning [...] a railing 1 - Total Assistance CURRENT [facility] Mobility Raw Score 16 CURRENT [facility] Mobility Functional Limitation/Modifier 54.16% Currently Impaired [...] next PT session Therapist Information License # [id number] Hudson Diaz, PT 12/15/2018 12:14 PM * Katie Pizarro CNP - 12/15/2018 10:02 AM EST [facility] LOS: 2 days Principal Problem: Cellulitis [...] Please note Portions of this note utilized [employer] dictation software, please excuse any typographical or [...] rec's, will likely need PICC and plan intermediate proph. 3. DVT prophylaxis 4. Discharge planning * Carline Dillon, [facility],PharmD - 12/15/2018 8:20 AM EST Pharmacy to Dose - Warfarin Note PATIENT: Amna Sequeira Room/Bed: [facility] Desired INR range: 2-3 Indication(s): Prophylactic Use [...] questions. Signed: Carline Dillon RPh,PharmD, Pharmacist Phone: [phone] Date/Time: 12/15/2018 8:20 AM * Saleem Shankar - 12/14/2018 6:35 PM EST Pharmacy to Dose - Warfarin Note PATIENT: Amna Sequeira Room/Bed: [facility] Patients home dose: 2.5 mg daily Desired [...] are any questions. Signed: Carito Solis Phone: [phone] Date/Time: 12/14/2018 6:35 PM * Félix Moulton [...] prosthetic joint infection. She originally presented to [facility] after she was bit by [...] reported to be where the aspiration occurred. [place] were cleansed with Betadine, subsequently removed. Steri-Strips [...] happy to see her in the meantime. (DOC:[id number]) Procedures I have reviewed the findings of the clinical application support technician and agree with their assessment. Félix Moulton APRN-FANNIE Ortho Nurse Established Patient Intake Room#: 4 PT reports for 2 week s/p right knee revision. PT is currently in 6/10 pain after taking oxycodone prior to arrival. PT is currently using a walker for an assistive device. Date: 12/27/2018 2:45 PM Patient: Amna Sequeira MR#: [id number] : 1955 Age: 63 y.o. Referring Physician: [...] 12/27/2018 2:45 PM Patient: Amna Sequeira MR#: [id number] : 1955 Age: 63 y.o. Referring Physician: [...] Cellulitis Pt states doing good. Went to [facility], still has redness to lower rt leg [...] on file documented in this encounter* SaigeFélix, IT ADMINISTRATOR-SURGICAL CONSULTANT - 01/16/2019 11:40 AM EDT HISTORY OF [...] done of the lower extremity at the [facility], but she had no problems [...] I am happy to see her sooner. (DOC:[id number]) Procedures I have reviewed the findings of the clinical application support technician and agree with their assessment. DESIREE Appiah .I have reviewed the findings of the clinical application support technician and agree with their assessment. DESIREE Appiah Ortho Nurse Established Patient Intake Room#: 3 PT reports for 3 week f/u for right knee revision. PT denies any pain at this time, PT reports taking OTC liquid Advil PRN for pain with moderate relief. Date: 01/16/2019 11:59 AM Patient: Amna Sequeira MR#: [id number] : 1955 Age: 63 y.o. Referring Physician: [...] 01/16/2019 11:59 AM Patient: Amna Sequeira MR#: [id number] : 1955 Age: 63 y.o. Referring Physician: [...] have reviewed the findings of the clinical application support technician and agree with their assessment. Ortho Nurse Established Patient Intake Room#: for her 4 month post-op check of right knee revision. She has been doing good. She has 0 pain. Date: 04/18/2019 10:58 AM Patient: Amna Sequeira MR#: [id number] : 1955 Age: 63 y.o. Referring Physician: Galindo Zepeda MD Insurance: Payor: MEDICARE [facility] [place] / Plan: MEDIC[place] [facility] [place] / Product Type: *No Product type* [...] 04/18/2019 10:58 AM Patient: Amna Sequeira MR#: [id number] : 1955 Age: 63 y.o. Referring Physician: [...] doing fine, and swimming now at the [facility]. No rashes, no diarrhea. Past [...] doing fine, and swimming now at the [facility]. No rashes, no diarrhea. Again on 12/04/2019: Patient seen, in clinic for a follow up. She had complained of some discomfort taking the ampicillin po. States that it makes her sick. No fever, no diarrhea. Knee is doing good, no pains, no swellings, or redness. Patient is doing god generally, and still going to the [employer] and swimming. Patient cosiders stopping medications Past [...] exercising. documented in this encounter* Félix Moulton, IT ADMINISTRATOR-SURGICAL CONSULTANT - 12/25/2019 10:00 AM EST HPI: Patient [...] have reviewed the findings of the clinical application support technician and agree with their assessment. Ortho Nurse Established Patient Intake Room#: 5 Date: 12/25/2019 10:14 AM Patient: Amna Sequeira MR#: [id number] : 1955 Age: 64 y.o. Patient is here today for her 1 year right TKA. Patient has no complaints and states that she is doing well. Pain scale is 0/10. Referring Physician: Félix Moulton APRN-CNP Insurance: Payor: MEDIC[facility] [place] / Plan: MEDIC[facility] [place] / Product Type: *No Product type* [...] 12/25/2019 10:14 AM Patient: Amna Sequeira MR#: [id number] : 1955 Age: 64 y.o. Patient is here today for her 1 year right TKA. Patient has no complaints and states that she is doing well. Pain scale is 0/10. Referring Physician: Saige, Félix, IT ADMINISTRATOR-SURGICAL CONSULTANT Insurance: Payor: MEDICARE [place] / Plan: [...] doing fine, and swimming now at the [facility]. No rashes, no diarrhea. Again on 12/04/2019: Patient seen, in clinic for a follow up. She had complained of some discomfort taking the ampicillin po. States that it makes her sick. No fever, no diarrhea. Knee is doing good, no pains, no swellings, or redness. Patient is doing good generally, and still going to the [employer] and swimming. Patient cosiders stopping medications. Again [...] 1yr Patient continue to go to the [facility], with swimming. Over 50% of [...] a month at Unknown time Taking nystatin 030123 UNIT/ML oral suspension Taking Allergies Allergen Reactions [...] Do you have a Healthcare Power of [place]pent[place] Farmer? Yes May 12, 2025 8:53am Advance Directives [...] XR KNEE RIGHT 3 VIEWS Félix Moulton, IT ADMINISTRATOR-SURGICAL CONSULTANT [address] [place] [address] Reason Comments Post Op Visit Reason Comments Follow-up Cellulitis Pt states doing good . Went to [employer], still has redness to lower rt leg [...] XR KNEE RIGHT 3 VIEWS Félix Moulton, IT ADMINISTRATOR-SURGICAL CONSULTANT [address] [place] [address] Reason Comments Follow-up Infection cellulitis-right kne e [...] XR KNEE RIGHT 3 VIEWS Félix Moulton, IT ADMINISTRATOR-SURGICAL CONSULTANT [address] [place] [address] Reason Comments Post-Discharge Follow Up Infection rt knee infected. Pt c/o pain05/08. Denies fever and chills. Status Reason Specialty Diagnoses / Procedures Referred By Contact Referred To Contact New Request Diagnoses History of revision of total replacement of right knee joint Procedures XR KNEE RIGHT 3 VIEWS Galindo Zepeda MD [address] [place] [address] Specialty Diagnoses / Procedures Referred By Contac t Referred To Contact Diagnoses Hx of total knee arthroplasty, right Procedures XR KNEE RIGHT 3 VIEWS Félix Moulton, IT ADMINISTRATOR-SURGICAL CONSULTANT [address] [place] [address] Referral ID Status Reason Start Date Expiration Date V isits Requested Visits Authorized [id number] New Request 12/16/2021 01/10/2023 [address] Specialty Diagnoses / Procedures Referred By Contac t Referred To Contact CT IMAGING Diagnoses Acute pancreatitis, unspecified complication status, unspecified pancreatitis type Procedures CT PANCREAS W IVCON CT ABDOMEN W/CONTRAST Aubree Ireland MD [address] [place] [address] [place] [address] Referral ID Status Reason Start Date Expiration Date V isits Requested Visits Authorized [id number] Closed Auto-Generate d Referral 08/03/2024 10/02/2024 1 1 Reason Comments Established Patient Follow up CT Scan/ h ospital follow up Specialty Diagnoses / Procedures Referred By Contac t Referred To Contact CT IMAGING Diagnoses Liver lesion Procedures CT LIVER W IVCON CT ABDOMEN W/CONTRAST Aubree Ireland MD [address] [place] [address] [place] [address] Referral ID Status Reason Start Date Expiration Date V isits Requested Visits Authorized [id number] Closed Auto-Generate d Referral 11/04/2024 01/03/2025 1 1 Reason Comments Follow Up INFORMATION SOURCE (unrecogn ized section and content) DATE CREATED AUTHOR 12/31/2018 [facility] ([place]) DATE CREATED AUTHOR AUTHOR'S ORGANIZ ATION 06/12/2020 [facility] DATE CREATED AUTHOR AUTHOR'S ORGANIZ ATION 12/23/2022 [facility] DATE CREATED AUTHOR AUTHOR'S ORGANIZ ATION 11/21/2023 [facility] DATE CREATED AUTHOR AUTHOR'S ORGANIZ ATION 05/26/2024 [facility] DATE CREATED AUTHOR AUTHOR'S ORGANIZ ATION 11/10/2024 [facility] DATE CREATED AUTHOR AUTHOR'S ORGANIZ ATION 03/17/2025 [facility] DATE CREATED AUTHOR AUTHOR'S ORGANIZ ATION 04/06/2025 [facility] DATE CREATED AUTHOR AUTHOR'S ORGANIZ ATION 05/18/2025 [facility] DATE CREATED AUTHOR AUTHOR'S ORGANIZ ATION 06/11/2025 [facility] Care Teams (unrecognized sec tion and content) Equities Analyst Relationship Specialty Start Date End Date Galindo Gutierrez MD [address] [address] [place] [address] PCP - General Family Medicine 12/26/16 Equities Analyst Relationship Specialty Start Date End Date Galindo Gutierrez MD [address] [facility] [address] [place] [address] PCP - General Family Medicine 12/26/16 Equities Analyst Relationship Specialty Start Date End Date Galindo Gutierrez MD [address] [facility] [place] [address] PCP - General Family Medicine 08/20/24 Equities Analyst Relationship Specialty Start Date End Date Galindo Gutierrez MD [address] [facility] [place] [address] PCP - General Family Medicine 08/20/24 Equities Analyst Relationship Specialty Start Date End Date Galindo Gutierrez MD [address] [facility] [place] [address] PCP - General Family Medicine 08/20/24 Equities Analyst Relationship Specialty Start Date End Date Galindo Gutierrez MD [address] [facility] [place] [address] PCP - General Family Medicine 08/20/24 Team Status: Active Member Role Status Dates Dr. Galindo Gutierrez MD Primary Care Provider Active Team Status: Inactive Member Role Status Dates Dr. Galindo Gutierrez MD Primary Care Provider Active Start: March 04, 2025 End: March 04, 2025 Dr. Galindo Gutierrez MD Referring Provider Active S tart: March 04, 2025 End: March 04, 2025 Allyson Barkley DATE PULLER-C Attending Provider Active S tart: March 04, 2025 End: March 04, 2025 Team Status: Inactive Member Role Status Dates Dr. Galindo Gutierrez MD Primary Care Provider Active Start: March 04, 2025 End: March 04, 2025 Allyson Barkley DATE PULLER-C Attending Provider Active S tart: March 04, 2025 End: March 04, 2025 Allyson Barkley DATE PULLER-C Referring Provider Active S tart: March 04, [...] 2025 End: March 20, 2025 Allyson Barkley DATE PULLER-C Attending Provider Active S tart: March 20, 2025 End: March 20, 2025 Allyson Barkley DATE PULLER-C Referring Provider Active S tart: March 20, [...] 2025 End: March 04, 2025 Allyson Barkley DATE PULLER-C Attending Provider Active S tart: March 04, 2025 End: March 04, 2025 Team Status: Inactive Member Role/Relationship Status Dates Dr. Galindo Gutierrez MD Primary Care Provider Active Start: March 04, 2025 End: March 04, 2025 Allyson Barkley DATE PULLER-C Attending Provider Active S tart: March 04, 2025 End: March 04, 2025 Allyson Barkley DATE PULLER-C Referring Provider Active S tart: March 04, 2025 End: March 04, 2025 Team Status: Inactive Member Role/Relationship Status Dates Dr. Galindo Gutierrez MD Primary Care Provider Active Start: March 18, 2025 End: March 18, 2025 Dr. Galindo Gutierrez MD Referring Provider Active S tart: March 18, 2025 End: March 18, 2025 Allyson Barkley DATE PULLER-C Attending Provider Active S tart: March 18, 2025 End: March 18, 2025 Team Status: Inactive Member Role/Relationship Status Dates Dr. Galindo Gutierrez MD Primary Care Provider Active Start: March 20, 2025 End: March 20, 2025 Allyson Barkley DATE PULLER-C Attending Provider Active S tart: March 20, 2025 End: March 20, 2025 Allyson Barkley DATE PULLER-C Referring Provider Active S tart: March 20, [...] or prosecute any alcohol or drug abuse patient.[facility] the event this information is protected by the Federal Confidentiality of Alcohol and Drug Abuse Patient Records regulations: The Federal rules restrict any use of the information to criminally investigate or prosecute any alcohol or drug abuse patient.[facility] the event this information is protected by the Federal Confidentiality of Alcohol and Drug Abuse Patient Records regulations: The Federal rules restrict any use of the information to criminally investigate or prosecute any alcohol or drug abuse patient.[facility] the event this information is protected by the Federal Confidentiality of Alcohol and Drug Abuse Patient Records regulations: The Federal rules restrict any use of the information to criminally investigate or prosecute any alcohol or drug abuse patient.[facility] the event this information is protected by the Federal Confidentiality of Alcohol and Drug Abuse Patient Records regulations: The Federal rules restrict any use of the information to criminally investigate or prosecute any alcohol or drug abuse patient.[facility] Hospital[facility] the event this information is protected by the Federal Confidentiality of Alcohol and Drug Abuse Patient Records regulations: The Federal rules restrict any use of the information to criminally investigate or prosecute any alcohol or drug abuse patient.[facility] Goals (unrecognized section and content) Goals [...] BE BASED ON THE PRIMARY CLINICAL RECORDS. [facility] [employer] [facility]. provides no warranty or guarantee of the accuracy or completeness of information in this document.
[2025-06-19 22:42] LABS: Differential Comment SCANNED
[2025-06-19 22:43] LABS: Anisocytosis 2+; Polychromasia 1+
[2025-06-19] MEDS: 0.9% Saline Lock 10 ML Syringe IV (23:23)
[2025-06-19] MEDS: 0.9% Normal Saline (1000mL) 1,000 ML 100 ML IV (23:23)
[2025-06-19] MEDS: Potassium Chloride Oral Tablet 20 MEQ PO ×2 (23:43→23:48)
[2025-06-19 23:49] LABS: Prothrombin Time (Protime)PT. 30.5 SECONDS (11.7-14.9)
[2025-06-20] VITALS (9 sets, daily range): BP systolic 126–161; BP diastolic 77–92; PULSE 67–102; RESP 19–20; TEMP 36.4–37.1; O2SAT 82–95; BMI 34.8
[2025-06-20 00:13] LABS: Troponin T High Sens 2 HR 12 ng/L (<=14)
[2025-06-20 01:24] LABS: Procalcitonin 0.07 ng/mL (<=0.10)
[2025-06-20 06:00] LABS: Hematocrit 32.3 % (37-47); Hemoglobin 8.8 g/dL (12.0-15.0); Immature Granulocytes Count 0.080 X10^3/uL (0.0-0.0); Mean Corp Hgb Conc 27.2 g/dL (32-36); Mean Corpuscular Volume 72.9 fL (81-99); Mean Platelet Vol. 8.6 fl (6.2-12.0); NRBC Flagged by Analyzer 0.2 % (0-5); POSITIVE DIFFERENTIAL YES; POSITIVE MORPHOLOGY YES; Platelet Count 437 K/mm3 (150-450); RBC Distribution Width CV 21.0 % (11.6-14.6); RBC Distribution Width SD 54.8 fl (35.1-43.9); Red Blood Count 4.43 M/mm3 (4.2-5.4); White Blood Count 10.4 K/mm3 (4.4-11.0)
[2025-06-20 06:06] LABS: Differential Indicated SCAN CRITERIA MET
[2025-06-20 06:09] LABS: Prothrombin Time (Protime)PT. 28.2 SECONDS (11.7-14.9)
[2025-06-20 06:47] LABS: Ferritin 10 ng/mL (22-378); Iron 12 ug/dL (50-170); Iron Binding Capacity,Total 424 ug/dL (250-450); Iron Binding Capacity,Unsat 412 ug/dL (228-428)
[2025-06-20 06:51] LABS: AST(SGOT) 18 U/L (<=31); Alanine Aminotransfer ALT/SGPT 11 U/L (<=34); Albumin, Serum 3.8 g/dL (3.4-4.8); Alkaline Phosphatase 70 U/L (35-104); Anion Gap 14 (5-15); BUN 8 mg/dL (4-19); BUN/Creat Ratio 12.9 RATIO (10-20); Calcium,Total 8.6 mg/dL (7.6-11.0); Carbon Dioxide 24.5 mmol/L (21.0-32.0); Chloride 99 mmol/L (98-108); Estimated Creatinine Clearance 72.16 ml/min (50-250); Globulin 4.0 g/dL (2.2-4.2); Glucose 151 mg/dL (70-99); Potassium 4.6 mmol/L (3.3-5.1)
[2025-06-20 07:11] LABS: Anisocytosis 2+; Differential Comment SCANNED
--- NOTE | 2025-06-20 11:06 | CASEMGMT ---
TERRELL AVILES Assessment Face to Face with patient for initial transition planning/care coordination assessment. TERRELL AVILES introduced self and role at [facility], pt voices understanding. Pt is A&Ox4 and is resting comfortably in bed and is calm. Care providers, pharmacy, and demographics verified. Admitting dx: Hypoxia, COPD/Asthma Exacerbation LACE Strata: 2 PCP: Galindo Sun Specialists: PM in [place] (Unsure of name) Preferred Pharmacy: [facility] [place] Insurance: [facility] Prescription Benefit: Yes LNOK: Pallavi (Daughter), Ana (Sister), Son (Bill), GS (Bartolome) Living Arrangements: Pt lives with her son, GS, Daughter, and LARON in a 2 story home with a flat entrance ADLs/IADLs: Pt states that she is indep and denies concerns. 6-Click score is 24. No PT ordered Transportation: Self, family DME: Access to a FWW, Grab bars, shower chair, and WC. Pt is currently requiring additional oxygen and may qualify for home oxygen use. A verbal list of local in-network DME companies were provided to the pt at this time. Pt prefers [employer]Pt reports that she would also like a nebulizer. HHC/SNF: Reports HH history x 4 years ago for home PT after orthopedic surgery. Pt cannot recall the name of the agency. Denies SNF hx or needs Pt?s goal: home Plan: Home, follow for oxygen needs. Pt states that she feels safe returning home with her family once medically ready and denies further questions or concerns at this time. Report given to MS3 TERRELL AVILES. Patel Rust RN, CM
[2025-06-20] MEDS: Warfarin (PBKC) 2.5 MG Tablet PO (17:17)
--- NOTE | 2025-06-20 17:21 | PN.HOSP_ITS ---
Reason for Visit Chief Complaint: Dyspnea, wheezing, cough. Subjective Subjective Patient was seen and examined today, her attitude is argumentative and aggressive, he wants to know why she can be discharged today, I told her that her breathing was not stable and she required supplemental oxygen and that I would advise her to stay at least until tomorrow to be reevaluated. Patient then said I want to be discharged tomorrow. Patient requested home nebulizer which I agreed to. Patient's respiratory panel was positive for rhinovirus Objective Data Objective Data Vital Signs: Vital Signs Temp Pulse Resp BP Pulse Ox O2 Del Method O2 Flow Rate 98.1 F 67 20 H 126/92 H 92 Nasal Cannula 2 06/20/25 14:42 06/20/25 14:42 06/20/25 15:36 06/20/25 14:42 06/20/25 14:42 06/20/25 14:43 06/20/25 14:43 Oxygen Flow Rate (L/min) 2 Oxygen Delivery Method Nasal Cannula Weight: 92.6 kg Body Mass Index (BMI) 34.8 Intake & Output: Intake and Output for Last 24 Hours 06/18/25 06/19/25 06/20/25 23:59 23:59 23:59 Intake Total 1400 / 1400 Balance 1400 / 1400 Lab / Micro Data 06/20/25 05:20 06/20/25 05:20 Labs: Laboratory Results - last 24 hr 06/19/25 20:44: WBC 12.0 H, RBC 4.39, Hgb 8.9 L, Hct 32.3 L, MCV 73.6 L, MCH 20.3 L, MCHC 27.6 L, RDW Std Deviation 55.8 H, RDW Coeff of Demetrice 21.2 H, Plt Count 430, MPV 8.4, Immature Gran % (Auto) 0.400, Neut % (Auto) 76.9 H, Lymph % (Auto) 14.6 L, [place] % (Auto) 6.4, Eos % (Auto) 1.2, Baso % (Auto) 0.5, Absolute Neuts (auto) 9.3 H, Absolute Lymphs (auto) 1.75, Nucleated RBC % 0.2, Differential Comment SCANNED, Platelet Estimate ADEQUATE, Polychromasia 1+, Anisocytosis 2+, Sodium 138, Potassium 3.9, Chloride 100, Carbon Dioxide 24.0, Anion Gap 14, BUN 8, Creatinine 0.68 L, Estim Creat Clear Calc 72.54, Est GFR (MDRD) Non-Af 94, BUN/Creatinine Ratio 11.9, Glucose 88, Calcium 8.6, Troponin T High Sens 12 06/19/25 23:18: PT 30.5 H, INR 2.8, Troponin T Hi Sens 2 Hr 12, Procalcitonin 0.07 06/20/25 05:20: WBC 10.4, RBC 4.43, Hgb 8.8 L, Hct 32.3 L, MCV 72.9 L, MCH 19.9 L, MCHC 27.2 L, RDW Std Deviation 54.8 H, RDW Coeff of Demetrice 21.0 H, Plt Count 437, MPV 8.6, Immature Gran % (Auto) 0.800, Neut % (Auto) 96.2 H, Lymph % (Auto) 2.2 L, [place] % (Auto) 0.6, Eos % (Auto) 0.0, Baso % (Auto) 0.2, Absolute Neuts (auto) 10.0 H, Absolute Lymphs (auto) 0.23 L, Nucleated RBC % 0.2, Differential Comment SCANNED, Anisocytosis 2+, Stomatocytes 1+, PT 28.2 H, INR 2.6, Sodium 138, Potassium 4.6, Chloride 99, Carbon Dioxide 24.5, Anion Gap 14, BUN 8, C reatinine 0.61 L, Estim Creat Clear Calc 72.16, Est GFR (MDRD) Non-Af 96, BUN/Creatinine Ratio 12.9, Glucose 151 H, Calcium 8.6, Iron 12 L, TIBC 424, Iron Saturation 3.0 L, Unsaturated IBC 412, Ferritin 10 L, Total Bilirubin 0.15, AST 18, ALT 11, Alkaline Phosphatase 70, Total Protein 7.8, Albumin 3.8, Globulin 4.0, Albumin/Globulin Ratio 1.0 Micro: Microbiology 06/19/25 22:55 Mucosa - Nasopharyngeal Respiratory Panel (PCR) - Final Rhinovirus Radiography Diagnostic Testing: Radiology Impression Chest X-Ray 06/19/25 20:51 IMPRESSION: No Acute Findings. Reading Location: [facility] Physical Exam Const alert, oriented x3 and no apparent distress General Appearance: cooperative, well kempt and well developed Orientation / Consciousness: awake, oriented to person, oriented to place and oriented to time HEENT normocephalic, head/scalp atraumatic and moist oral mucous membranes Eyes PERRL, EOMs intact bilaterally and conjunctivae normal Neck supple, no JVD, thyroid normal and no carotid bruits General: trachea midline Resp normal respiratory effort, no retractions and no use of accessory muscles Resp Narrative: Diffuse expiratory wheezes are noted throughout both lungs Auscultation: wheezes throughout; Negative for rales or rhonchi Cardio regular rate, regular rhythm, S1 normal heart sound, S2 normal heart sound, no murmurs, no rub and no gallops GI normal to inspection, nondistended, normoactive bowel sounds, soft to palpation, non-tender and non-distended Extremity no clubbing, cyanosis or edema Skin no rashes or lesions noted General Skin Exam: no breakdown Neuro oriented x3, CN's II-XII intact bilaterally, moves all extremities, no focal motor deficits and no sensory deficits noted Sensorium / Orientation: awake and alert Speech: speech normal Psych affect normal Assessment & Plan Assessment/Plan (1) Acute exacerbation of chronic obstructive pulmonary disease (COPD): PLAN: Plan 1. Acute exacerbation of COPD secondary to tracheobronchitis from rhinovirus- patient will remain on IV corticosteroids and aerosol treatments #2 hypoxia secondary to #1-patient is currently on low-flow nasal cannula oxygen, she will need a walking oxygenation test before she is discharged #3 chronic anxiety-patient takes Xanax #4 hypothyroidism-patient is on Synthroid #5 protein C deficiency-patient is on warfarin, INR is therapeutic Total clinical time spent by myself addressing the patient's medical issues, reviewing all of her data, and collaborating with patient's care team: 35 minutes Charges/Coding Visit Charges Inpatient E&M: [id number] Subs Hosp L2
--- NOTE | 2025-06-20 20:01 | NURSING ---
Patient states she is leaving tomorrow.
[2025-06-20] MEDS: 0.9% Saline Lock 10 ML Syringe IV (21:33)
[2025-06-21] VITALS (13 sets, daily range): BP systolic 138–161; BP diastolic 87–97; PULSE 64–106; RESP 16–24; TEMP 36.5–36.9; O2SAT 78–98; BMI 34.7
[2025-06-21] MEDS: 0.9% Saline Lock 10 ML Syringe IV (06:34)
--- NOTE | 2025-06-21 09:35 | DCINST_ITS ---
Discharge Instructions DC O2, CPAP, BIPAP needs Home O2 Discharge instructions: Yes Type of respiratory needs?: Oxygen Oxygen frequency: With Ambulation Oxygen liters per minute during Ambulation: 4L Dressing / Incision Discharge Activity: Return to Normal Activity Weight Bearing Status: Full weight bearing Follow Up Care Test Results: Test results from this visit will be discussed in further detail at your follow- up appointment, if applicable. Discharge Plan Admission Admit Date/Time: 06/19/25 21:53 Primary Reason for Your Visit: exacerbation of COPD secondary to Rhinovirus infection Attending Provider: Boone Angelo Primary Care Provider: Galindo Sun Consulting Providers: Rebecca Metcalf Instructions Additional Instructions / Restrictions: Wear 4 Liters oxygen while ambulating Discharge Orders/Prescriptions Prescriptions: New ipratropium-albuterol 0.5 mg-3 mg(2.5 mg base)/3 mL Solution For Nebulization 3 ml inhalation Q6H Qty: 120 0RF prednisone 20 mg tablet 40 mg PO DAILY Qty: 20 0RF Continued ondansetron 4 mg tablet,disintegrating 4 mg PO Q6H omeprazole 40 mg capsule,delayed release(DR/EC) 40 mg PO QDAY sucralfate [Carafate] 100 mg/mL suspension 10 ml PO QACHS alprazolam 0.25 mg tablet 0.25 mg PO TID PRN (Reason: anxiety) melatonin 5 mg tablet 5 mg PO HS PRN (Reason: sleep) fluticasone propion-salmeterol [Advair Diskus] 1 PUFF inhaler 1 puff inhalation .qd Patient Comments: LUNGS/COPD warfarin [Jantoven] 2.5 MG tablet 2.5 mg PO DAILY Patient Comments: BLOOD THINNER montelukast 10 MG tablet 10 mg PO DAILY Patient Comments: LUNGS/COPD albuterol sulfate [Ventolin HFA] 1 INHALER inhaler 1 puff inhalation DAILY Patient Comments: LUNGS/COPD tiotropium bromide [Spiriva with HandiHaler] 1 PUFF inhaler 1 puff inhalation DAILY Patient Comments: LUNGS/COPD methocarbamol [Robaxin-750] 750 mg tablet 1,500 mg PO Q8H PRN (Reason: spasms) Patient Comments: musculoskeletal pain Acidophilus Capsule 2,000 mmu cells PO DAILY fluconazole 150 mg tablet 150 mg PO QWEEK erythromycin 250 mg tablet 250 mg PO TID levothyroxine 175 mcg tablet 175 mcg PO DAILY isosorbide mononitrate 30 mg tablet extended release 24 hr 30 mg PO DAILY potassium chloride [Klor-Con M20] 20 mEq tablet,ER particles/crystals 20 meq PO DAILY gabapentin 800 mg tablet 800 mg PO TID oxycodone 10 mg tablet 10 mg PO Q4H PRN (Reason: pain) Discontinued prednisone 10 mg tablet 10 mg PO DAILY Referrals / Follow Up: Galindo Sun MD [Primary Care Provider] - In 1 Week Disposition Disposition (needs filled in before D/C Order can be placed): Home, Self Care
--- NOTE | 2025-06-21 09:42 | PCM.DC.SUM ---
Providers Date of Admission: 06/19/25 Date of Discharge: 06/21/25 Primary Care Physician: Dr. Galindo Sun MD Reason For Visit: HYPOXIA, COPD/ASTHMA EXACERBATION Diagnosis Discharge Diagnosis (1) Acute exacerbation of chronic obstructive pulmonary disease (COPD): Status: Chronic Code(s): J44.1 - Chronic obstructive pulmonary disease with (acute) exacerbation Plan 1. Acute exacerbation of COPD secondary to tracheobronchitis from rhinovirus-patient will remain on IV corticosteroids and aerosol treatments #2 hypoxia secondary to #1-patient is currently on low-flow nasal cannula oxygen, she will need a walking oxygenation test before she is discharged #3 chronic anxiety-patient takes Xanax #4 hypothyroidism-patient is on Synthroid #5 protein C deficiency-patient is on warfarin, INR is therapeutic #6 iron deficiency anemia Total clinical time spent by myself addressing the patient's medical issues, reviewing all of her data, and collaborating with patient's care team: 35 minutes Medications at Discharge Home Medications albuterol sulfate 90 mcg/actuation aerosol inhaler (Ventolin HFA) 1 puff inhalation DAILY 07/29/13 fluticasone 500 mcg-salmeterol 50 mcg/dose blistr powdr for inhalation (Advair Diskus) 1 puff inhalation .qd 07/29/13 montelukast 10 mg tablet 10 mg PO DAILY 07/29/13 tiotropium bromide 18 mcg capsule with inhalation device (Spiriva with HandiHaler) 1 puff inhalation DAILY 07/29/13 warfarin 2.5 mg tablet (Jantoven) 2.5 mg PO DAILY BLOOD THINNER, LACKS C PROTEIN 07/29/13 gabapentin 800 mg tablet 800 mg PO TID 07/28/24 isosorbide mononitrate 30 mg tablet,extended release 24 hr 30 mg PO DAILY 07/28/24 levothyroxine 175 mcg tablet 175 mcg PO DAILY 07/28/24 oxycodone 10 mg tablet 10 mg PO Q4H PRN pain 07/28/24 potassium chloride 20 mEq tablet,extended release(part/cryst) (Klor-Con M) 20 meq PO DAILY 07/28/24 alprazolam 0.25 mg tablet 0.25 mg PO TID PRN anxiety 08/08/24 melatonin 5 mg tablet 5 mg PO HS PRN sleep 08/08/24 methocarbamol 750 mg tablet (Robaxin-750) 1,500 mg PO Q8H PRN spasms 08/08/24 omeprazole 40 mg capsule,delayed release 40 mg PO QDAY 08/08/24 ondansetron 4 mg disintegrating tablet 4 mg PO Q6H 08/08/24 sucralfate 100 mg/mL oral suspension (Carafate) 10 ml PO QACHS 08/08/24 Lactobacillus acidophilus (Acidophilus capsule) 2,000 mmu cells PO DAILY SUPP 05/13/25 erythromycin 250 mg tablet 250 mg PO TID 06/19/25 fluconazole 150 mg tablet 150 mg PO QWEEK 06/19/25 ipratropium 0.5 mg-albuterol 3 mg (2.5 mg base)/3 mL nebulization soln 3 ml inhalation Q6H #120 mL 06/21/25 prednisone 20 mg tablet 40 mg (2 x 20 mg) PO DAILY #20 tabs 06/21/25 Hospital Course Operations None Procedures None Summary of Care Provided Minutes Spent on Discharge: 31 Hospital Course: 70-year-old white female seen in the emergency room at [facility] with complaints of shortness of breath over the last 2 days prior, she also complained of wheezing. Patient has a history of COPD she does not have supplemental oxygen at home and she still smokes a pack of cigarettes a day. Workup in the emergency room included CBC which showed a slightly elevated white blood cell count, hemoglobin was 8.9, chest x-ray showed no acute findings, patient required nasal cannula oxygen to maintain pulse ox above 90%. Patient was given aerosol treatments and IV corticosteroids, she did remain hypoxic especially on ambulation. Patient was admitted to [place] [address], respiratory panel was obtained which showed her to have a rhinovirus infection. She was maintained on aerosol treatments and IV Solu-Medrol. The following day, patient was reevaluated, she had less wheezing and requested to go home, she required 4 L of oxygen via nasal cannula only on ambulation. Patient's iron studies were abnormal showing that she had iron deficiency anemia, patient was placed on ferrous sulfate at the time of discharge home and instructed to follow-up with her PCP regarding investigation of the anemia. On 06/21/2025, patient was seen and examined: On examination she appeared in good health and spirits, she does not appear to be in any distress. Vital signs as documented. Skin warm and dry and without overt rashes. Neck without JVD, thyroid appears normal, trachea is midline, neck is supple. Lungs mild expiratory wheezes were noted bilaterally on expiration. Heart exam notable for regular rhythm, normal sounds and absence of murmurs, rubs or gallops. Abdomen unremarkable and without evidence of organomegaly, masses, or abdominal aortic enlargement, bowel sounds are present in all 4 quadrants, no abdominal tenderness was noted. Extremities nonedematous, no cyanosis was noted, no clubbing was noted. Neuro: Cranial nerves II through XII are grossly intact, no focal motor deficits were noted, sensation to light touch and pinprick is intact, motor exam 5/5 throughout. Psych: Patient is alert and oriented x3, she does not appear anxious or depressed, she does not appear agitated. Patient was discharged home in stable condition on 06/21/2025 Weight / BMI Weight Weight: 92.4 kg Body Mass Index (BMI) 34.7 ABG / Lab / Microbiology Data 06/20/25 05:20 06/20/25 05:20 Microbiology: Microbiology 06/19/25 22:55 Mucosa - Nasopharyngeal Respiratory Panel (PCR) - Final Rhinovirus D/C Instructions Weight Bearing Status: Full weight bearing DC O2, CPAP, BIPAP Needs Home O2 Discharge instructions: Yes Type of respiratory needs?: Oxygen Oxygen frequency: With Ambulation Oxygen liters per minute during Ambulation: 4L DC home with Oxygen: Yes Home O2 MD Review: I have reviewed the oxygen testing, and the patient qualifies for home oxygen equipment and portability. The patient is mobile in the home and the community. Meaningful Use Info Meaningful Use Meaningful Use Diagnoses (Choose all that apply): None applicable Discharge Plan Admission Admit Date/Time: 06/19/25 21:53 Primary Reason for Your Visit: exacerbation of COPD secondary to Rhinovirus infection Attending Provider: Boone Angelo Primary Care Provider: Galindo Sun Consulting Providers: Rebecca Metcalf Instructions Additional Instructions / Restrictions: Wear 4 Liters oxygen while ambulating Discharge Orders/Prescriptions Prescriptions: New ipratropium-albuterol 0.5 mg-3 mg(2.5 mg base)/3 mL Solution For Nebulization 3 ml inhalation Q6H Qty: 120 0RF prednisone 20 mg tablet 40 mg PO DAILY Qty: 20 0RF Continued ondansetron 4 mg tablet,disintegrating 4 mg PO Q6H omeprazole 40 mg capsule,delayed release(DR/EC) 40 mg PO QDAY sucralfate [Carafate] 100 mg/mL suspension 10 ml PO QACHS alprazolam 0.25 mg tablet 0.25 mg PO TID PRN (Reason: anxiety) melatonin 5 mg tablet 5 mg PO HS PRN (Reason: sleep) fluticasone propion-salmeterol [Advair Diskus] 1 PUFF inhaler 1 puff inhalation .qd Patient Comments: LUNGS/COPD warfarin [Jantoven] 2.5 MG tablet 2.5 mg PO DAILY Patient Comments: BLOOD THINNER montelukast 10 MG tablet 10 mg PO DAILY Patient Comments: LUNGS/COPD albuterol sulfate [Ventolin HFA] 1 INHALER inhaler 1 puff inhalation DAILY Patient Comments: LUNGS/COPD tiotropium bromide [Spiriva with HandiHaler] 1 PUFF inhaler 1 puff inhalation DAILY Patient Comments: LUNGS/COPD methocarbamol [Robaxin-750] 750 mg tablet 1,500 mg PO Q8H PRN (Reason: spasms) Patient Comments: musculoskeletal pain Acidophilus Capsule 2,000 mmu cells PO DAILY fluconazole 150 mg tablet 150 mg PO QWEEK erythromycin 250 mg tablet 250 mg PO TID levothyroxine 175 mcg tablet 175 mcg PO DAILY isosorbide mononitrate 30 mg tablet extended release 24 hr 30 mg PO DAILY potassium chloride [Klor-Con M20] 20 mEq tablet,ER particles/crystals 20 meq PO DAILY gabapentin 800 mg tablet 800 mg PO TID oxycodone 10 mg tablet 10 mg PO Q4H PRN (Reason: pain) Discontinued prednisone 10 mg tablet 10 mg PO DAILY Referrals / Follow Up: Galindo Sun MD [Primary Care Provider] - In 1 Week Disposition Disposition (needs filled in before D/C Order can be placed): Home, Self Care Charges/Coding Visit Charges Inpatient E&M: 50203 Disch Hosp >30min
== END 2025-06-21 12:39 | disposition home or self-care (01) | DRG 191 ==
LOC: ED 21:58 → MS3 22:14
PROVIDERS: Physician Assistant; Admitting Provider Family Medicine; Emergency Provider Emergency Medicine; PCP Family Medicine; Visit Provider Internal Medicine
DX: J44.1 Chronic obstructive pulmonary disease with (acute) exacerbation (principal); K86.3 Pseudocyst of pancreas; D68.59 Other primary thrombophilia; K86.89 Other specified diseases of pancreas; E03.9 Hypothyroidism, unspecified; D50.9 Iron deficiency anemia, unspecified; F17.210 Nicotine dependence, cigarettes, uncomplicated; B97.89 Other viral agents as the cause of diseases classified elsewhere; I12.9 Hypertensive chronic kidney disease with stage 1 through stage 4 chronic kidney disease, or unspecified chronic kidney disease; E66.9 Obesity, unspecified; J40 Bronchitis, not specified as acute or chronic; K21.9 Gastro-esophageal reflux disease without esophagitis; M79.7 Fibromyalgia; E78.5 Hyperlipidemia, unspecified; N18.2 Chronic kidney disease, stage 2 (mild); F41.8 Other specified anxiety disorders; R09.02 Hypoxemia; Z79.52 Long term (current) use of systemic steroids; Z90.710 Acquired absence of both cervix and uterus; Z79.01 Long term (current) use of anticoagulants; Z79.51 Long term (current) use of inhaled steroids; Z86.718 Personal history of other venous thrombosis and embolism; Z96.641 Presence of right artificial hip joint; Z96.651 Presence of right artificial knee joint; Z79.890 Hormone replacement therapy; Z68.35 Body mass index [BMI] 35.0-35.9, adult
CPT/HCPCS: 36415; 71045; 80048; 80053; 82728; 83540; 83550; 84145; 84484; 85025; 85610; 87633; 94640; 94668; 99284; A4216